=== PATIENT | female | born 1950 | race Caucasian/White ===

== ENCOUNTER 2023-11-08 09:28 | Outpatient (OUT) | payer MEDICARE, SELFPAY ==
[2023-11-08 10:27] LABS: Free T4 1.32 ng/dL (0.76-1.46)
[2023-11-08 10:30] LABS: Chloride 101 mmol/L (98-107); Potassium 3.7 mmol/L (3.5-5.1); Sodium 140 mmol/L (136-145)
[2023-11-08 10:31] LABS: Alanine Aminotransferase 22 U/L (14-59); Albumin Globulin Ratio 1.2; Albumin Level 3.8 g/dL (3.4-5.0); Alkaline Phosphatase 85 U/L (46-116); Anion Gap 10.4; Aspartate Amino Transferase 18 U/L (15-37); BUN Creatinine Ratio 23.9; Bilirubin Total 1.2 mg/dL (0.2-1.0); Calcium 9.1 mg/dL (8.5-10.1); Carbon Dioxide 32.3 mmol/L (21.0-32.0); Estimated GFR (African America >60 (>=60); Estimated GFR (Non-African Ame 60 (>=60); Globulin 3.3 g/dL; Glucose 96 mg/dL (74-106); Total Protein 7.1 g/dL (6.4-8.2); Triglycerides 55 mg/dL (<=150)
[2023-11-08 10:32] LABS: Cholesterol 180 mg/dL (<=200); HDL Cholesterol 98 mg/dL (40-60); Thyroid Stimulating Hormone 2.289 uIU/mL (0.358-3.740)
== END 2023-11-08 09:29 | disposition home or self-care (01) ==
LOC: LAB 09:28
PROVIDERS: PCP Internal Medicine; Visit Provider Internal Medicine
DX: E03.9 Hypothyroidism, unspecified (principal); E78.5 Hyperlipidemia, unspecified
CPT/HCPCS: 36415; 80053; 80061; 84439; 84443

== ENCOUNTER 2023-11-24 14:01 | Outpatient (OUT) | payer MEDICARE, SELFPAY ==
--- OUTSIDE RECORDS SUMMARY | 2023-11-24 14:06 | XMS_ITS | CCD ---
Author Name Unknown Address [address] [place] [address] Organization [facility] Care Team Providers Care Chip Machine Operator Name Role Phone Amparo Garcia Unavailable Unavailab Rachael Dai Primary Care Provider DO Rachael Canela Primary Care Provider DO Rachael Canela Other Provider Self, Referral Attending Provider Unavailable DO Carlos King Referring Provider [phone] Carlos King Referring Unavailable Self, Referral Admitting Unavailable Self, Referral Attending Unavailable Rachael Canela Primary Care Unavailable Rachael Canela Consulting Unavailable IRMA, DR OSBORNE Admitting Unavailable IRMA, DR OSBORNE Attending Unavailable ROLA, DR CANO Primary Care Unavailable IRMA, DR OSBORNE Consulting Unavailable MARY KATE, DR MEERA Yang Consulting Unavailable RACHAEL CANELA Primary Care Physician [phone] SANIA LITTLEJOHN Attending Unavailable MD [place] CHAUDHARY Attending Unavailable SANIA LITTLEJOHN Attending Unavailable MD [place] CHAUDHARY Attending Unavailable Patrick FELIX Amparo Unavailable Unavailab Rachael Dai Primary Care Provider INDIGO SALDAÑA Referring Unavailable RACHAEL CANELA Primary Care Unavailable VISHAL MAEISA Referring Unavailable JOSE MARTINSRACHAEL Primary Care Unavailable VISHAL MAEISA Attending Unavailable OLIVER, SUROVI Referring Unavailable RACHAEL CANELA Primary Care Unavailable RACHAEL CANELA Primary Care Unavailable HAZARIKA, SUROVI Referring Unavailable NEVAARIKA, SUROVI Attending Unavailable JOSE MARTINSRACHAEL Primary Care Unavailable INDIGO SALDAÑA Attending Unavailable RACHAEL CANELA Primary Care Unavailable Rachael Canela DO Primary Care Provider RACHAEL CANELA Attending Unavailable RACHAEL CANELA Referring Unavailable RACHAEL CANELA Primary Care Unavailable Allergies Allergy Classification Reported Allergen(s) Allergy Type Date of Onset Reaction(s) Facility (15 sources) heparin; Translations: [heparin] Drug Allergy 5 Other: See Comments, Platelet factor 4-heparin complex Ab, bleeding [facility] Work Phone: (13 sources) Sulfonamides (Antibiotic); Translations: [SULFA (SULFONAMIDE ANTIBIOTICS)] Drug Allergy 2 Rash [facility] Work Phone: (1 source) heparin Drug Allergy 5 [facility] Repository (1 source) Sulfonamides (Antibiotic) Drug allergy (disorder) 0 [facility] (2 sources) Sulfonamides (Antibiotic); Translations: [sulfa drugs] Drug allergy Eruption of skin (disorder) [facility] Medications Current Medications Medication Drug Class(es) Dates Sig (Normalized) Sig (Original) acetaminophen 325 mg oral tablet (11 sources) Start: 01-07-20 15 acetaminophen (TYLENOL) 325 mg tablet Take 2 tablets (650 mg total) by mouth. 0 01/06/2015 Active Comment on above: Take 2 tablets by mo ut every 6 hours as needed for Pain (DO NOT EXCEED 4,000 MG IN 24 HOUR PERIOD). atorvastatin 10 mg oral tablet (12 sources) HMG-CoA Reductase Inhibitor Start: 12-09-19 23 End: 11-06-19 24 take 1 tablet by mouth once daily atorvastatin (LIPITOR) 10 mg tablet Indications: Hyperlipidemia, unspecified TAKE 1 TABLET BY MOUTH EVERY DAY 90 tablet 1 11/06/2023 Active Comment on above: Take 10 mg by mouth once daily. hydroCHLOROthiazide 12.5 mg oral capsule (14 sources) Thiazide Diuretic Start: 11-01-19 22 End: 12-27-19 23 take 1 capsule by mouth once daily hydroCHLOROthiazide (MICROZIDE) 12.5 mg capsule Take 1 capsule (12.5 mg total) by mouth daily. 0 12/27/2022 Active Comment on above: Take 1 capsule by mo uth daily after breakfast. latanoprost 0.05 mg/ml ophthalmic solution (3 sources) Prostaglandin Analog Start: 12-09-19 latanoprost (XALATAN) 0.005 % ophthalmic solution Refill(s) 0 0 12/09/2022 Active Start: 12-09-2022 latanoprost Op th 0.005% Jeanie Refill(s) 0 Start Date: 12/09/22 Status: Ordered levothyroxine sodium 0.075 mg oral tablet (12 sources) l-Thyroxine Start: 10-24-2023 take 1 tablet by mouth once daily levothyroxine (SYNTHROID, LEVOTHROID) 75 MCG tablet Indications: Hypothyroidism, unspecified TAKE 1 TABLET BY MOUTH DAILY 90 tablet 1 10/24/2023 Active Start: 06-01-2020 levothyroxine Daily, Refills(s) 0 Start Date: 06/01/20 Status: Ordered Start: 03-23-2018 take 1 tablet by brooklyn th once daily before breakfast levothyroxine (SYNTHROID) 75 mcg tablet Take 1 tablet by mouth daily before breakfast. 90 tablet 3 03/23/2018 Active Comment on above: Take 1 tablet by brooklyn th daily before breakfast. Lisinopril (1 source) Angiotensin Converting Enzyme Inhibitor Start: 0 lisinopril Oral, Daily, Refills(s) 0 Start Date: 06/01/20 Status: Ordered 24 hr metoprolol succinate 50 mg extended release oral tablet (16 sources) beta-Adrenergic Edith Start: take 1 tablet by mouth every twenty-four hours in the morning, then take 1 tablet by mouth at bedtime metoprolol succinate XL (TOPROL XL) 50 mg 24 hr tablet Take 1 tablet (50 mg total) by mouth in the morning and 1 tablet (50 mg total) before bedtime. 0 08/28/2023 Active Start: 06-27-2023 End: 08-28-2023 take 1 tablet by mouth twice daily metoprolol succinate ER (TOPROL XL) 50 mg 24 hr tablet Indications: S/P AVR (aortic valve replacement) and aortoplasty , APC (atrial premature contractions) , SVT (supraventricular tachycardia) Take 1 tablet by mouth two times a day. 180 tablet 3 08/28/2023 Active Start: 12-19-2022 End: 11-06-2023 take 2 tablets by mouth every twenty-four hours in the morning, then take 1 tablet by mouth in the evening metoprolol succinate XL (TOPROL XL) 25 mg 24 hr tablet TAKE 2 TABLETS BY MOUTH IN THE MORNING then TAKE 1 TABLET BY MOUTH IN THE EVENING 0 12/19/2022 11/06/2023 Discontinued (Therapy completed) Start: 12-09-2022 take 1 mg by mouth once daily metoprolol 25 mg ER Tab mg tab(s), Oral, Daily, Refills(s) 0 Start Date: 12/09/22 Status: Ordered Start: 10-06-2022 End: 12-17-2022 take 2 tablets by mouth every twenty-four hours in the morning, then take 1 tablet by mouth in the evening metoprolol succinate ER (TOPROL XL) 25 mg 24 hr tablet Indications: S/P AVR (aortic valve replacement) and aortoplasty , SVT (supraventricular tachycardia) (HCC) , Essential hypertension , Venous (peripheral) insufficiency TAKE 2 TABLETS BY MOUTH IN THE MORNING then TAKE 1 TABLET BY MOUTH IN THE EVENING 270 tablet 3 10/06/2022 12/17/2022 Discontinued Start: 12-13-2021 metoprolol suc cinate ER (TOPROL XL) 25 mg 24 hr tablet Indications: S/P AVR (aortic valve replacement) and aortoplasty , SVT (supraventricular tachycardia) (HCC) , Essential hypertension , Venous (peripheral) insufficiency Take 50 mg am and 25 mg pm 270 tablet 3 12/13/2021 Active Comment on above: Take 50 mg am and 25 mg pm TAKE 2 TABLETS BY MO [facility] IN THE MORNING then TAKE 1 TABLET BY MOUTH IN THE EVENING Take 1 tablet by brooklyn th twice daily. Take 1 tablet by brooklyn th two times a day. perflutren lipid microspheres 1.3 mL in NaCl (PF) 0.9% 10 mL injection (DEFINITY) (6 sources) Start: 06-27-2023 End: 09-25-2024 perflutren lipid microspheres 1.3 mL in NaCl (PF) 0.9% 10 mL injection (DEFINITY) Start: 12-27-2021 End: 03-28-2023 perflutren lipid microsphere s 1.3 mL in NaCl (PF) 0.9% 10 mL injection (DEFINITY) 125 ml sodium chloride 9 mg/ ml prefilled syringe (6 sources) Start: 06-27-2023 End: 09-25-2024 sodium chloride 0.9 % (flush ) 10 mL (BD POSIFLUSH) Start: 12-27-2021 End: 03-28-2023 sodium chloride 0.9 % (flush ) 10 mL (BD POSIFLUSH) Vitamin D2 2000 intl units oral capsule (1 source) Start: 06-01-2020 take 1 capsule by mouth once daily Vitamin D2 2000 intl units oral capsule International_Unit cap(s), Oral, Daily, Refills(s) 0 Start Date: 06/01/20 Status: Ordered Completed/Discontinued Medications Medication Drug Class(es) Dates Sig (Normalized) Sig (Original) amoxicillin 500 mg oral tablet (10 sources) Penicillin-class Antibacterial Start: 08-02-2023 End: 11-06-2023 amoxicillin (AMOXIL) 500 MG tablet Dental prn 0 08/02/2023 11/06/2023 Discontinued (Therapy completed) Start: 03-22-2016 Amoxicillin 50 0 mg tablet Take 4 tablets by mouth 30-60 minutes before dental procedure 4 tablet 11 03/22/2016 Active Comment on above: Take 4 tablets by mo [facility] 30-60 minutes before dental procedure cholecalciferol 1.25 mg oral capsule (9 sources) Vitamin D take 1 capsule by mouth every week cholecalciferol, Vitamin D3, (VITAMIN D3) 1,250 mcg (50,000 unit) cap capsule Take 50,000 Units by mouth one time a week. 0 Active Comment on above: Take 50,000 Units by mouth one time a week. 10 ml lidocaine hydrochloride 10 mg/ml injection (1 source) Antiarrhythmic, Amide Local Anesthetic Start: 05-30-20 End: 05-30-20 lidocaine (PF) 10 mg/mL (1 %) 4 mL injection (XYLOCAINE) meloxicam 15 mg oral tablet (2 sources) Nonsteroidal Anti-inflammatory Drug End: 06-27-20 take 1 tablet by mouth once daily meloxicam (MOBIC) 15 mg tablet Take 15 mg by mouth once daily. 0 06/27/2023 Discontinued (Course of therapy completed) Comment on above: Take 15 mg by mouth once daily. simvastatin 10 mg oral tablet (1 source) HMG-CoA Reductase Inhibitor Start: 03-23-20 take 1 tablet by mouth once daily at bedtime simvastatin (ZOCOR) 10 mg tablet Take 1 tablet by mouth daily at bedtime. 90 tablet 3 03/23/2018 Active Comment on above: Take 1 tablet by brooklyn th daily at bedtime. timolol/dorzolamide/lat anop/PF (VMNHLWO-NZZLKCBYFY-QZG ANOP,PF,) 0.5-2-0.005 % drop (6 sources) timolol/dorzolam jama /latanop/PF (TIMOLOL-DORZOLAMID -LATANOP,PF,) 0.5-2-0.005 % drop Use 1 Drop in eyes every evening. 0 Active Comment on above: Use 1 Drop in eyes e very evening. tiZANidine 4 mg oral tablet (3 sources) Central alpha-2 Adrenergic Agonist Start: 09-27-20 End: 11-10-19 24 take 1 tablet by mouth once daily tiZANidine (ZANAFLEX) 4 mg tablet Indications: Strain of left hamstring, initial encounter Take 1 tablet (4 mg total) by mouth nightly. 30 tablet 0 09/27/2023 11/10/2023 Discontinued (Side effects) Start: 01-04-2019 take 1 tablet by brooklyn th every twenty-four hours as needed tiZANidine (ZANAFLEX) 4 mg tablet Take 1 tablet by mouth at bedtime as needed. 30 tablet 1 01/04/2019 Active Comment on above: Take 1 tablet by brooklyn th at bedtime as needed. 1 ml triamcinolone acetonide 40 mg/ml injection (1 source) Corticosteroid Start: 05-30-2023 End: 05-30-2023 triamcinolone acetonide 40 mg injection (KeNALog 40) Problems Active Problems Problem Classification Problem Date Documented Date Episodic/Chronic Cardiac dysrhythmias (20 sources) Atrial flutter; Translations: [Unspecified atrial flutter] Onset: 12-12-2014 Resolved: 03-30-2023 10-25-2021 Chronic Coagulation and hemorrhagic disorders (12 sources) Heparin-induced thrombocytopenia; Translations: [Heparin induced thrombocytopenia (HIT)] Onset: 12-09-2014 10-25-2021 Chronic Disorders of lipid metabolism (16 sources) Hyperlipidemia; Translations: [Hyperlipidemia, unspecified] Onset: 12-02-2014 10-25-2021 Chronic Essential hypertension (19 sources) Essential hypertension; Translations: [Essential (primary) hypertension] Onset: 12-02-2014 Chronic Genitourinary symptoms and ill-defined conditions (4 sources) Stress incontinence (female) (male); Translations: [Genuine stress incontinence] Onset: 12-09-2022 Chronic Heart valve disorders (16 sources) History of aortic valve replacement; Translations: [Presence of prosthetic heart valve] Onset: 06-29-2021 Chronic Heart valve disorders (1 source) Heart murmur 06-01-2020 Episodic Osteoarthritis (1 source) Arthritis 06-01-2020 Chronic Other connective tissue disease (1 source) Impingement syndrome of left shoulder region; Translations: [Impingement syndrome of left shoulder] 05-30-2023 Episodic Other diseases of kidney and ureters (1 source) Hydronephrosis due to ureteral obstruction 06-01-2020 Episodic Other skin disorders (1 source) Loss of hair; Translations: [Nonscarring hair loss, unspecified] Episodic Residual codes; unclassified (1 source) Pain, unspecified; Translations: [Pain] Onset: 05-30-2023 Episodic Residual codes; unclassified (1 source) Pain; Translations: [Pain, unspecified] 05-30-2023 Episodic Spondylosis; intervertebral disc disorders; other back problems (8 sources) Thoracic facet joint pain; Translations: [Other spondylosis, thoracic region] Onset: 11-17-2011 02-05-2021 Chronic Spondylosis; intervertebral disc disorders; other back problems (1 source) Sciatica; Translations: [Sciatica, left side] 11-10-2023 Episodic Thyroid disorders (11 sources) Hypothyroidism; Translations: [Hypothyroidism, unspecified] Onset: 12-04-2014 10-25-2021 Chronic Unclassified (9 sources) SUMMARY Onset: 12-02-2014 01-06-2015 Unclassified (1 source) Encounter for screening mammogram for malignant neoplasm of breast; Translations: [Encounter for screening mammogram for malignant neoplasm of breast] Onset: 09-12-2022 Unclassified (1 source) Heparin-induced thrombocytopenia, unspecified; Translations: [Heparin-induced thrombocytopenia, unspecified] Onset: 01-30-2023 Past or Other Problems Problem Classification Problem Date Documented Da te Episodic/Chronic Abdominal pain (6 sources) Abdominal pain; Translations: [Right flank pain] Onset: 01-30-2023 06-01-2020 Episodic Calculus of urinary tract (9 sources) Calculus of kidney; Translations: [History of calculus of kidney] Onset: 12-05-2022 Episodic Conditions associated with dizziness or vertigo (20 sources) Vertigo of central origin; Translations: [Vertigo of central origin] Onset: 03-20-2015 03-20-2015 Episodic Deficiency and other anemia (11 sources) Anemia; Translations: [Anemia, unspecified] Onset: 12-27-2014 10-25-2021 Episodic Genitourinary symptoms and ill-defined conditions (3 sources) Christian hematuria; Translations: [Gross hematuria] Onset: 01-30-2023 06-01-2020 Episodic Mood disorders (2 sources) Mood disorders Onset: 09-27-2023 Resolved: 11-10-2023 09-27-2023 Nonspecific chest pain (8 sources) Pain of intercostal space; Translations: [Intercostal pain] Onset: 12-24-2020 02-05-2021 Episodic Other aftercare (9 sources) Patient encounter status; Translations: [Encounter for therapeutic drug level monitoring] Onset: 12-18-2014 Episodic Other aftercare (11 sources) Long-term current use of anticoagulant; Translations: [USP (current) use of anticoagulants] Onset: 01-03-2015 01-30-2023 Episodic Other diseases of kidney and ureters (2 sources) Hydronephrosis with renal and ureteral calculous obstruction; Translations: [Calculus of ureter] Onset: 01-30-2023 01-30-2023 Episodic Other diseases of veins and lymphatics (7 sources) Peripheral venous insufficiency; Translations: [Venous insufficiency (chronic) (peripheral)] Onset: 06-27-2023 Episodic Other eye disorders (11 sources) Divergence insufficiency ; Translations: [Other specified disorders of binocular movement] Onset: 06-23-2015 06-23-2015 Episodic Other lower respiratory disease (12 sources) Dyspnea on exertion; Translations: [Other forms of dyspnea] Onset: 06-29-2021 Episodic Other skin disorders (1 source) Nonscarring hair loss, unspecified; Translations: [Patchy loss of hair] Onset: 12-27-2022 Episodic Phlebitis; thrombophlebitis and thromboembolism (11 sources) Axillary vein thrombosis; Translations: [Acute embolism and thrombosis of unspecified axillary vein] Onset: 12-18-2014 Resolved: 03-30-2023 10-25-2021 Episodic Results Test Name Value Interpretation Reference Range Facility CBC panel Auto (Bld)on 06-27 Erythrocyte distribution width (RBC) [Ratio] 12.0 % 11.5 - 15.0 % [facility] Hematocrit (Bld) [Volume fraction] 46.3 % High 36.0 - 46.0 % [facility] Hemoglobin (Bld) [Mass/Vol] 15.2 g/dL 11.5 - 15.5 g/dL [facility] MCH (RBC) [Entitic mass] 32.3 pg 26.0 - 34.0 pg [facility] MCHC (RBC) [Mass/Vol] 32.8 g/dL 30.5 - 36.0 g/dL [facility] MCV (RBC) [Entitic vol] 98.5 fL 80.0 - 100.0 fL [facility] Nucleated RBC (Bld) [#/Vol] <0.01 k/uL [facility] Platelet mean volume (Bld) [Entitic vol] 11.4 fL 9.0 - 12.7 fL [facility] Platelets (Bld) [#/Vol] 144 10*3/uL Low 150 - 400 k/uL [facility] RBC (Bld) [#/Vol] 4.70 10*6/uL 3.90 - 5.2 0 m/uL [facility] WBC (Bld) [#/Vol] 6.26 10*3/uL 3.70 - 11. 00 k/uL [facility] Erythrocyte distribution width (RBC) [Ratio] 12.0 % Normal 11.5-15.0 [facility] Comment on above: Order Comment: Brianda andres Type: BLOOD SPECIMEN Ordering Facility: [facility] Address: [address] [place], [place] [id number] Performed By: #### 5 8410-2 #### [facility] CLIA [id number] [address] [place] [address] [place] Hematocrit (Bld) [Volume fraction] 46.3 % High 36.0-46.0 [facility] Comment on above: Order Comment: Brianda andres Type: BLOOD SPECIMEN Ordering Facility: [facility] Address: [address] Performed By: #### 5 8410-2 #### [facility] CLIA [id number] [address] [place] [address] [place] Hemoglobin (Bld) [Mass/Vol] 15.2 g/dL Normal 11.5-15.5 [facility] Comment on above: Order Comment: Speci men Type: BLOOD SPECIMEN Ordering Facility: [facility] Address: [address] Performed By: #### 5 8410-2 #### [facility] CLIA [id number] [address] [place] [address] [place] MCH (RBC) [Entitic mass] 32.3 pg Normal 26.0-34.0 [facility] Comment on above: Order Comment: Speci men Type: BLOOD SPECIMEN Ordering Facility: [facility] Address: [address] Performed By: #### 5 8410-2 #### [facility] CLIA [id number] [address] [place] [address] [place] MCHC (RBC) [Mass/Vol] 32.8 g/dL Normal 30.5-36.0 [facility] Comment on above: Order Comment: Speci men Type: BLOOD SPECIMEN Ordering Facility: [facility] Address: [address] Performed By: #### 5 8410-2 #### [facility] CLIA [id number] [address] [place] [address] [place] MCV (RBC) [Entitic vol] 98.5 fL Normal 80.0-100.0 [facility] Comment on above: Order Comment: Speci men Type: BLOOD SPECIMEN Ordering Facility: [facility] Address: [address] [place], [place] [address] Performed By: #### 5 8410-2 #### [facility] CLIA [id number] [address] [place] [address] [place] Nucleated RBC (Bld) [#/Vol] 10*3/uL Normal <0.01 [facility] Comment on above: Order Comment: Speci men Type: BLOOD SPECIMEN Ordering Facility: [facility] Address: [address] [place] [address] Performed By: #### 5 8410-2 #### [facility] CLIA [id number] [facility] [place] [address] [place] Platelet mean volume (Bld) [Entitic vol] 11.4 fL Normal 9.0-12.7 [facility] Comment on above: Order Comment: Speci men Type: BLOOD SPECIMEN Ordering Facility: [facility] Address: [address] [place] [address] Performed By: #### 5 8410-2 #### [facility] CLIA [id number] [address] [place] [address] [place] Platelets (Bld) [#/Vol] 144 10*3/uL Low 150-400 [facility] Comment on above: Order Comment: Speci men Type: BLOOD SPECIMEN Ordering Facility: [facility] Address: [address] [place], [place] [address] Performed By: #### 5 8410-2 #### [facility] CLIA [id number] [address] [place] [address] [place] RBC (Bld) [#/Vol] 4.70 10*6/uL Normal 3.90-5.20 [facility] Comment on above: Order Comment: Speci men Type: BLOOD SPECIMEN Ordering Facility: [facility] Address: [address] [place], [place] [address] Performed By: #### 5 8410-2 #### [facility] CLIA [id number] [address] [place] [address] [place] WBC (Bld) [#/Vol] 6.26 10*3/uL Normal 3.70-11.00 [facility] Comment on above: Order Comment: Speci men Type: BLOOD SPECIMEN Ordering Facility: [facility] Address: [address] [place] [address] Performed By: #### 5 8410-2 #### [facility] CLIA [id number] [address] [facility] [place]K [id number] [id number] [facility] CNOVon 06-27-2023 CNOV Office Visit (CARDLO ) -------- LESVIA RAMOS I ([id number]) 1950 F Date Time Provider Department 06/27/23 9:00 AM ANDRES BOYD During your visit today, we recorded the following information about you: Pulse Blood pressure Weight 69/minute 140/82 59 kg Andres Boyd MD 06/27/2023 9:33 AM Signed [facility] SECTION OF REGIONAL CARDIOLOGY OUTPATIENT VISIT DATE June 27, 2023 OUTPATIENT VISIT TYPE ESTABLISHED PRIMARY CARE PHYSICIAN: Rachael Canela DO [address] [place] [address] CHIEF COMPLAINT: Follow-up Last visit with me: May 2022, subsequent visit with ITZ Mae November 2022 HISTORY OF PRESENT ILLNESS: Ms. Ramos is a 72 year old female, seen in cardiology clinic today to for follow-up. Since last visit, Doing well, but feels that palpitations are a bit more often. Started taking meloxicam for shoulder pain. Now stopped. Now s/p steroid injection, no longer needing meloxicam. Continues PT at home. Diet: Overall well balanced. Otherwise she denies any recurrent chest pain, shortness of breath, lsymptoms consistent with orthopnea and/or PND. 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 Hypertension Hyperlipidemia Atrial flutter, postoperative, no documented recurrence since then, but intermittent palpitations. Moderate TR Echocardiogram 03/01/2017 - The left ventricle is normal in size. Left ventricular systolic function is normal. EF = 62 ? 5% (2D biplane) - The right ventricle is normal in size. Right ventricular systolic function is normal. - The left atrial cavity is moderately dilated. - There is moderate (2+) tricuspid valve regurgitation. - Doris-Tee prosthetic aortic valve (size #23). There is no aortic valve regurgitation. The peak gradient is 24 mmHg, the mean gradient is 12 mmHg and the dimensionless valve index is 0.55. - s/p ascending aortic repair and AVR PHYSICAL EXAMINATION: BP 140/82 Pulse 69 Wt 59 kg (130 lb) BMI 22.31 kg/m? General: No acute distress, appears comfortable HEENT: no bruits, no JVD Pulmonary/chest: CTA b/L. CVS: Normal S1 and S2, Regular rhythm, normal rate. Soft 2/6 early systolic murmur, RUSB. No JVD, trace B/L LE edema. Central and peripheral pulses 2+ B/L, no carotid or abdominal bruits. Abdomen: Soft, non-tender, non-distended. Bowel sounds normal Extremities: skin changes consistent with chronic venous insufficiency, no compressions today, trace B/L Le edema to above ankle. Neuro: AAOx4 Psych: Normal mood and affect EKG done in clinic and I personally reviewed today. Normal sinus rhythm, APCs. Septal Q waves. ECHOCardiogram today, June 27, 2022 CONCLUSIONS: - Exam indication: Aortic valve replacement, SVT - The left ventricle is normal in size. Left ventricular systolic function is normal. EF = 66 ? 5% (2D biplane) Grade I left ventricular diastolic dysfunction. - The right ventricle is normal in size. Right ventricular systolic function is normal. - Doris-Tee prosthetic aortic valve (size #23). There is no aortic valve regurgitation. The peak gradient is 17 mmHg, the mean gradient is 9 mmHg and the dimensionless valve index is 0.59. - Estimated right ventricular systolic pressure is 22 mmHg consistent with normal pulmonary artery pressures. Estimated right atrial pressure is 3 mmHg based on IVC assessment. - Exam was compared with the prior echocardiographic exam performed on 06/25/20. No significant change. 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5-2-0.005 % drop Use 1 Drop in eyes every evening. hydroCHLOROthi (more content not included)... Normal [facility] Comprehensive metabolic 2000 panelon 06-27-2023 Albumin [Mass/Vol] 4.2 g/dL Normal 3.9-4.9 [facility] Comment on above: Order Comment: Hakeemi mckenna Type: BLOOD SPECIMEN Ordering Facility: [facility] Address: [address] [address] Performed By: #### 2 4323-8 #### [facility] CLIA [id number] [address] [place] [address] [place] ALP [Catalytic activity/Vol] 78 U/L Normal 34-123 [facility] Comment on above: Order Comment: Speci men Type: BLOOD SPECIMEN Ordering Facility: [facility] Address: [address] [address] Performed By: #### 2 4323-8 #### [facility] CLIA [id number] [address] [place] [address] [place] ALT [Catalytic activity/Vol] 24 U/L Normal 7-38 [facility] Comment on above: Order Comment: Speci men Type: BLOOD SPECIMEN Ordering Facility: [facility] Address: [address] Performed By: #### 2 4323-8 #### [facility] CLIA [id number] [address] [place] [address] [place] Anion gap [Moles/Vol] 10 mmol/L Normal 9-18 [facility] Comment on above: Order Comment: Speci men Type: BLOOD SPECIMEN Ordering Facility: [facility] Address: [address] Performed By: #### 2 4323-8 #### [facility] CLIA [id number] [address] [place] [address] [place] AST [Catalytic activity/Vol] 24 U/L Normal 13-35 [facility] Comment on above: Order Comment: Speci men Type: BLOOD SPECIMEN Ordering Facility: [facility] Address: [address] Performed By: #### 2 4323-8 #### [facility] CLIA [id number] [address] [place] [address] [place] Bilirubin [Mass/Vol] 0.7 mg/dL Normal 0.2-1.3 [facility] Comment on above: Order Comment: Speci men Type: BLOOD SPECIMEN Ordering Facility: [facility] Address: [address] [place] [address] Performed By: #### 2 4323-8 #### [facility] CLIA [id number] [address] [place] [address] [place] Calcium [Mass/Vol] 9.7 mg/dL Normal 8.5-10.2 [facility] Comment on above: Order Comment: Speci men Type: BLOOD SPECIMEN Ordering Facility: [facility] Address: [address] [place] [address] Performed By: #### 2 4323-8 #### [facility] CLIA [id number] [address] [place] [address] [place] Chloride [Moles/Vol] 104 mmol/L Normal 97-105 [facility] Comment on above: Order Comment: Speci men Type: BLOOD SPECIMEN Ordering Facility: [facility] Address: [address] [place] [address] Performed By: #### 2 4323-8 #### [facility] CLIA [id number] [address] [place] [address] [place] CO2 [Moles/Vol] 28 mmol/L Normal 22-30 [facility] Comment on above: Order Comment: Speci men Type: BLOOD SPECIMEN Ordering Facility: [facility] Address: [address] [place] [address] Performed By: #### 2 4323-8 #### [facility] CLIA [id number] [facility] [place] [address] [place] Creatinine [Mass/Vol] 0.85 mg/dL Normal 0.58-0.96 [facility] Comment on above: Order Comment: Speci men Type: BLOOD SPECIMEN Ordering Facility: [facility] Address: [address] [place] [address] Performed By: #### 2 4323-8 #### [facility] CLIA [id number] [address] [place] [address] [place] Creatinine and Glomerular filtration rate.predicted panel (S/P/Bld) 73 mL/min/1.73m??? Normal >=60 [facility] Comment on above: Order Comment: Speci men Type: BLOOD SPECIMEN Ordering Facility: [facility] Address: [address] [place] [address] Result Comment: Felicia mated Glomerular Filtration Rate (eGFR) is calculated using the 2020 CKD-EPI creatinine equation. This equation utilizes serum creatinine, sex, and age as parameters. The creatinine assay has traceable calibration to isotope dilution-mass spectrometry. Refer to KDIGO guidelines for clinical interpretation. In patients with unstable renal function, e.g. those with acute kidney injury, the eGFR may not accurately reflect actual GFR. Performed By: #### 2 4323-8 #### [facility] CLIA [id number] [address] [place] [address] [place] Glucose [Mass/Vol] 84 mg/dL Normal 74-99 [facility] Comment on above: Order Comment: Brianda andres Type: BLOOD SPECIMEN Ordering Facility: [facility] Address: [address] [id number] Result Comment: The [place] Diabetes Association (ADA) provides guidance for cutoff values for fasting glucose and random glucose. The ADA defines fasting as no caloric intake for at least 8 hours. Fasting plasma glucose results between 100 to 125 mg/dL indicate increased risk for diabetes (prediabetes). Fasting plasma glucose results greater than or equal to 126 mg/dL meet the criteria for diagnosis of diabetes. In the absence of unequivocal hyperglycemia, results should be confirmed by repeat testing. In a patient with classic symptoms of hyperglycemia or hyperglycemic crisis, random plasma glucose results greater than or equal to 200 mg/dL meet the criteria for diagnosis of diabetes. Reference: Standards of Medical Care in Diabetes 2016, [place] Diabetes Association. Diabetes Care. 2016.39(Suppl 1). Performed By: #### 2 4323-8 #### [facility] CLIA [id number] [address] [place] [address] [place] Potassium [Moles/Vol] 4.5 mmol/L Normal 3.7-5.1 [facility] Comment on above: Order Comment: Brianda andres Type: BLOOD SPECIMEN Ordering Facility: [facility] Address: [address] [place] [address] Performed By: #### 2 4323-8 #### [facility] CLIA [id number] [address] [id number] [place] Protein [Mass/Vol] 6.3 g/dL Normal 6.3-8.0 [facility] Comment on above: Order Comment: Speci men Type: BLOOD SPECIMEN Ordering Facility: [facility] Address: [address] [address] Performed By: #### 2 4323-8 #### [facility] CLIA [id number] [address] [place] Sodium [Moles/Vol] 142 mmol/L Normal 136-144 [facility] Comment on above: Order Comment: Speci men Type: BLOOD SPECIMEN Ordering Facility: [facility] Address: [address] [address] Performed By: #### 2 4323-8 #### [facility] CLIA [id number] [address] [place] [address] [place] Urea nitrogen [Mass/Vol] 18 mg/dL Normal 7-21 [facility] Comment on above: Order Comment: Speci men Type: BLOOD SPECIMEN Ordering Facility: [facility] Address: [address] [address] Performed By: #### 2 4323-8 #### [facility] CLIA [id number] [facility] [address] [place] ECG COMPLETEon 06-27-2023 ECG COMPLETE Ventricular Rate : 6 9 BPM Atrial Rate : 85 BPM P-R Interval : 198 ms QRS Duration : 86 ms Q-T Interval : 396 ms QTC Calculation(Bazett) : 424 ms Calculated P [place] : 79 degrees Calculated R [place] : 85 degrees Calculated T [place] : 56 degrees SINUS RHYTHM WITH MARKED SINUS ARRHYTHMIA ABNORMAL ECG Confirmed by MERON MARTINI M.D. ([id number]) on 06/29/2023 2:57:41 PM NAME : LESVIA RAMOS PID : [id number] : 1950 Gender : Female Race : ORD : [id number] Procedure Date : Jun 27 2023 08:52:22 Edit Date : Jun 29 2023 14:57:43 Diagnosis: SINUS RHYTHM WITH MARKED SINUS ARRHYTHMIA ABNORMAL ECG Confirmed by MERON MARTINI M.D. ([id number]) on 06/29/2023 2:57:41 PM Test Reason : Location : 145 : SEAN Overread By : MERON MARTINI M.D. Edited By : MERON MARTINI M.D. Referred By : ANDRES BOYD Acquired by : Roopa olson [facility] CNOVon 05-30-2023 CNOV Office Visit (ORAVON ) -------- LESVIA RAMOS I ([id number]) 1950 F Date Time Provider Department 05/30/23 9:30 AM INDIGO SALDAÑA During your visit today, we recorded the following information about you: Indigo Saldaña, DO 05/30/2023 10:40 AM Signed Lesvia Ramos is a patient of Rachael Canela. CHIEF COMPLAINT: Lesvia Ramos is a 72 year old female who presents today for new evaluation of left shoulder pain. HISTORY OF PRESENT ILLNESS: Patient is a 72-year-old female presents today for evaluation of left shoulder pain. She started noticing discomfort in left shoulder back in December of this year. She does not recall any injury or trauma. She gets achy pain in the left shoulder at nighttime particularly. Raising the arm at side and overhead is uncomfortable. Since starting meloxicam she is noticed the pain is a little better. Her primary care physician to get an MRI which suggested bursitis and a partial-thickness rotator cuff tear and some calcific tendinitis. She has not started any physical therapy yet PAIN EVALUATION 05/30/2023 0936 Pain Level: -- PATIENT IS UNABLE TO RATE HER PAIN Pain Location: Shoulder-Left Description: Aching;Sharp Duration Amount of Time: 5 Duration Units: Months Frequency: Intermittent Intervention/Comfort measure: Medication MOBIC, TYLENOL ROS: REVIEW OF SYMPTOMS: Constitutional: patient denies any recent fever or significant change in weight Gastrointestinal: patient denies any current abdominal discomfort Musculoskeletal: as noted in the HPI Neurologic: as noted in the HPI SOCIAL HISTORY: Tobacco Use: Never ALLERGIES: ALLERGIES Allergen Reactions Heparin Other: See Comments HIT Sulfa (Sulfonamide * Rash PAST MEDICAL HISTORY: PAST MEDICAL HISTORY Diagnosis Date Aortic stenosis Ascending aortic aneurysm ([facility]) Degenerative disc disease, lumbar Heart murmur Hypertension Hypothyroidism Osteopenia Stroke (cerebrum) ([facility]) 12/07/2014 SOCIAL HISTORY: Tobacco Use: Never PHYSICAL EXAMINATION: Patient has mildly positive impingement signs in the left shoulder. Negative drop arm test and negative lift off sign. She has mild discomfort with resisted left shoulder abduction and forward flexion. She has good strength with these resisted motions. Speed's Test is negative. No tenderness about the elbow, forearm, wrist, or hand. Elbow and wrist motion were not irritable. Neurovascularly intact, radial pulses 2 + and palpable. Sensation is intact to light touch in the hand. IMAGING: X-rays of the left shoulder taken the office today reveal no fractures or dislocations. There is some distal supraspinatus region calcification suggesting calcific tendinitis. Mild acromioclavicular joint osteoarthritis MRI from outside facility report was able to be reviewed. This describes some partial-thickness rotator cuff tearing along with some calcific tendinitis and significant subacromial bursitis. CLINICAL IMPRESSION / ASSESSMENT: Left shoulder impingement and partial-thickness rotator cuff tear PROCEDURES: Large Joint Arthro/Inj: L subacromial bursa Informed Consent Consent Obtained: Verbal [place] Protocol A moment to CARE was completed. SIGN IN Personnel directly involved with the procedure wore the appropriate PPE. Special Equipment: N/A Patient/Surrogate Stated/Verified: Patient name, Date of , Relevant allergies and Intended procedure TIME OUT Intended patient and procedure match the source document(s). Relevant labs, photos, and/or imaging studies have been reviewed. Correct side/site marked and visible. Medications required for procedure verified. Fire risk assessed and interventions discussed. No implant(s) inserted. 05/30/2023 10:34 AM The procedure site was prepped in the usual sterile fashion. Site: L subacromial bursa Medications: 40 mg triamcinolone acetonide 40 mg/mL Anesthetics: 4 mL lidocaine (PF) 10 mg/mL (1 %) Outcome: Tolerated well, no immediate complications Post-injection instructions were reviewed with the patient and the patient voiced understanding of these instructions. SIGN OUT All instruments, equipment, possible retained foreign bodies accounted for. RECOMMENDATION / PLAN: I discussed treatment options with the patient at length. Patient is interested in a cortisone injection for the left shoulder. She was given this injection today under pleat sterile technique without any complications as outlined above. I also recommend she do some physical therapy for the left shoulder. She can follow-up with me on an as-needed basis. Verbal health education was given to patient. Patient verbalizes understanding and agrees with the treatment plan as detailed above. Indigo Saldaña DO Allergies As of Date: 05/30/2023 Noted Allergy Reaction HEPARIN 12/09/2014 14 - Other: See Commen (more content not included)... Normal [facility] XR SHLDR >/=3V AP/SAAD AP/OTH R LTon 05-30-2023 XR SHLDR >/=3V AP/SAAD AP/OTHR LT * * *Final Report* * * DATE OF EXAM: May 30 2023 9:06AM AFR 5252 - XR SHLDR >/=3V AP/SAAD AP/OTHR LT / PROCEDURE REASON: Pain * * * * Physician Interpretation * * * * EXAMINATION: XR SHLDR >/=3V AP/SAAD AP/OTHR LT HISTORY: CHRONIC LEFT SHOULDER PAIN- NO INJURY Pain . TECHNIQUE: XR SHLDR >/=3V AP/SAAD AP/OTHR LT Laterality: LEFT Number of different views (projections): 4 M: XB_1 COMPARISON: RESULT: Small region of calcific tendinosis of the distal rotator cuff. Maintained glenohumeral and acromioclavicular joints with minimal marginal osteophytes. Generalized osteopenia. Median sternotomy wires. No acute fracture or dislocation. There are no bony erosions. IMPRESSION: Calcific tendinosis and minimal degenerative change. Rn Telephone Triage: PSCB Transcribe Date/Time: May 30 2023 9:40A Dictated by : JOSSY BENAVIDES MD This examination was interpreted and the report reviewed and electronically signed by: JOSSY BENAVIDES MD on May 30 2023 9:40AM EST [id number] Normal [facility] XR SHOULDER GENERAL 3V OR MO RE AP/TRUE AP/OTHER LEFTon 05-30-2023 [facility] Basic metabolic 2000 panelon 12-27-2022 Anion gap [Moles/Vol] 7 mmol/L Low 9 - 18 mmol/L [facility] Calcium [Mass/Vol] 9.4 mg/dL 8.5 - 10. 2 mg/dL [facility] Chloride [Moles/Vol] 106 mmol/L High 97 - 105 mmol/L [facility] CO2 [Moles/Vol] 30 mmol/L 22 - 30 mmol/L [facility] Creatinine [Mass/Vol] 0.81 mg/dL 0.58 - 0.96 mg/dL [facility] Estimated Glomerular Filtration Rate 77 mL/min/1.73m >=60 mL/min/1.73m [facility] Glucose [Mass/Vol] 64 mg/dL Low 74 - 99 mg/dL [facility] Potassium [Moles/Vol] 4.7 mmol/L 3.7 - 5.1 mmol/L [facility] Sodium [Moles/Vol] 143 mmol/L 136 - 144 mmol/L [facility] Urea nitrogen [Mass/Vol] 18 mg/dL 7 - 21 mg/dL [facility] Anion gap [Moles/Vol] 7 mmol/L Low 9-18 [facility] Comment on above: Order Comment: Speci men Type: BLOOD SPECIMEN Ordering Facility: [facility] Address: [address] [address] Performed By: #### 3 016-3, LIPLILIAN, , #### [facility] CLIA [id number] [address] [place] [address] [place] Calcium [Mass/Vol] 9.4 mg/dL Normal 8.5-10.2 [facility] Comment on above: Order Comment: Speci men Type: BLOOD SPECIMEN Ordering Facility: [facility] Address: [address] [place] [address] Performed By: #### 3 016-3, LIPNF, , #### [facility] CLIA [id number] [address] [place] [address] [place] Chloride [Moles/Vol] 106 mmol/L High 97-105 [facility] Comment on above: Order Comment: Speci men Type: BLOOD SPECIMEN Ordering Facility: [facility] Address: [address] [place] [address] Performed By: #### 3 016-3, LIPNF, , #### [facility] CLIA [id number] [address] [place] [address] [place] CO2 [Moles/Vol] 30 mmol/L Normal 22-30 [facility] Comment on above: Order Comment: Speci men Type: BLOOD SPECIMEN Ordering Facility: [facility] Address: [address] [place] [address] Performed By: #### 3 016-3, LIPNF, , #### [facility] CLIA [id number] [address] [place] [address] [place] Creatinine [Mass/Vol] 0.81 mg/dL Normal 0.58-0.96 [facility] Comment on above: Order Comment: Speci men Type: BLOOD SPECIMEN Ordering Facility: [facility] Address: [address] [place] [address] Performed By: #### 3 016-3, LIPNF, , #### [facility] CLIA [id number] [address] [place] [address] [place] ESTIMATED GLOMERULAR FILTRATION RATE 77 mL/min/1.73m??? Normal >=60 [facility] Comment on above: Order Comment: Speci men Type: BLOOD SPECIMEN Ordering Facility: [facility] Address: [address] [place] [address] Result Comment: Felicia mated Glomerular Filtration Rate (eGFR) is calculated using the 2020 CKD-EPI creatinine equation. This equation utilizes serum creatinine, sex, and age as parameters. The creatinine assay has traceable calibration to isotope dilution-mass spectrometry. Refer to KDIGO guidelines for clinical interpretation. In patients with unstable renal function, e.g. those with acute kidney injury, the eGFR may not accurately reflect actual GFR. Performed By: #### 3 016-3, LIPNF, , 28330-7 #### [facility] CLIA [id number] [address] [place] [address] [place] Glucose [Mass/Vol] 64 mg/dL Low 74-99 [facility] Comment on above: Order Comment: Speci men Type: BLOOD SPECIMEN Ordering Facility: [facility] Address: [address] [address] Result Comment: The [place] Diabetes Association (ADA) provides guidance for cutoff values for fasting glucose and random glucose. The ADA defines fasting as no caloric intake for at least 8 hours. Fasting plasma glucose results between 100 to 125 mg/dL indicate increased risk for diabetes (prediabetes). Fasting plasma glucose results greater than or equal to 126 mg/dL meet the criteria for diagnosis of diabetes. In the absence of unequivocal hyperglycemia, results should be confirmed by repeat testing. In a patient with classic symptoms of hyperglycemia or hyperglycemic crisis, random plasma glucose results greater than or equal to 200 mg/dL meet the criteria for diagnosis of diabetes. Reference: Standards of Medical Care in Diabetes 2016, [place] Diabetes Association. Diabetes Care. 2016.39(Suppl 1). Performed By: #### 3 016-3, LIPNF, , 15457-1 #### [facility] CLIA [id number] [address] [place] [address] [place] Potassium [Moles/Vol] 4.7 mmol/L Normal 3.7-5.1 [facility] Comment on above: Order Comment: Speci men Type: BLOOD SPECIMEN Ordering Facility: [facility] Address: [address] [id number] Performed By: #### 3 016-3, LIPNF, , 64643-8 #### [facility] CLIA [id number] [address] [place] [address] [place] Sodium [Moles/Vol] 143 mmol/L Normal 136-144 [facility] Comment on above: Order Comment: Speci men Type: BLOOD SPECIMEN Ordering Facility: [facility] Address: [address] [id number] Performed By: #### 3 016-3, LIPNF, 28373-2, 83399-2 #### [facility] IA [id number] [address] [place] [address] [place] Urea nitrogen [Mass/Vol] 18 mg/dL Normal 7-21 [facility] Comment on above: Order Comment: Speci men Type: BLOOD SPECIMEN Ordering Facility: [facility] Address: [address] [address] Performed By: #### 3 016-3, LIPNF, 11248-2, 33588-2 #### [facility] CLIA [id number] [address] [place] [address] [place] CNOVon 12-27-2022 CNOV Office Visit (DEYSILO ) -------- LESVIA RAMOS I ([id number]) 1950 F Date Time Provider Department 12/27/22 9:00 AM NITZA MAE During your visit today, we recorded the following information about you: Pulse Blood pressure Weight 54/minute 126/84 60.8 kg Nitza Mae APRN.CNP 01/13/2023 6:10 PM Signed [facility] [employer] Jessie Wade Department of Cardiovascular Medicine SECTION OF REGIONAL CARDIOLOGY December 27, 2022 OUTPATIENT VISIT TYPE ESTABLISHED PRIMARY CARE PHYSICIAN: Rachael Canela DO SUBJECTIVE: CHIEF COMPLAINT: Patient presents with: CARD Follow Up 6 Month HISTORY OF PRESENT ILLNESS: Lesvia Ramos is a 72 year old female who presents for CVM follow up. Last seen in department of cardiology 06/27/[address] Andres Boyd. At that time, patient reporting doing well, very rare palpitations. She reported she occasionally uses an extra dose of metoprolol to help with symptoms. She reported some mild bilateral ankle swelling at the end of the day mostly under control with compressions and leg elevation. Today, patient denies chest pain, shortness of breath, orthopnea, cough, significant edema/weight gain, PND, lightheadedness, syncope or other significant cardiac symptoms. Rare palpitations. Last episode 09/2022 and described as brief heart racing that can be accompanied by chest tightness. No recent episodes of heart racing in this new year. Does not drink much caffeine but admits to not drinking much water. Has a glass of wine at supper on occasional. Has been compliant with wearing compressions over the winter. Has helped with the swelling Has noted some places where her hair does not grow; more noticeable in the past year. Has fine hair. Admits has been getting perms to see if hair would improve. She has not started the Mag-ox. 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 Hypertension Hyperlipidemia Atrial flutter, postoperative, no documented recurrence since then, but intermittent palpitations. Moderate TR Echocardiogram 03/01/2017 - The left ventricle is normal in size. Left ventricular systolic function is normal. EF = 62 ? 5% (2D biplane) - The right ventricle is normal in size. Right ventricular systolic function is normal. - The left atrial cavity is moderately dilated. - There is moderate (2+) tricuspid valve regurgitation. - Doris-Tee prosthetic aortic valve (size #23). There is no aortic valve regurgitation. The peak gradient is 24 mmHg, the mean gradient is 12 mmHg and the dimensionless valve index is 0.55. - s/p ascending aortic repair and AVR REVIEW OF SYSTEMS: Detailed 14 systems reviewed. Pertinent information, positive and/or negative or non-contributory with the exception of pertinent positives described in HPI. Past Medical, Family and Social history reviewed; unchanged from prior. ASSESSMENT/PLAN: Lesvia Ramos was seen today for 6 months CVM follow up visit. Diagnoses and all orders for this visit: Encounter Diagnosis ICD-10-CM 1. S/P AVR (aortic valve replacement) and aortoplasty Z95.2 hydroCHLOROthiazide (HYDRODIURIL, ESIDRIX) 12.5 mg capsule 2. SVT (supraventricular tachycardia) (HCC) I47.1 3. APC (atrial premature contractions) I49.1 4. Primary hypertension I10 hydroCHLOROthiazide (HYDRODIURIL, ESIDRIX) 12.5 mg capsule 5. Patchy loss of hair L65.9 MAGNESIUM BLD BASIC METABOLIC PNL TSH BLD CONSULT TO DERMATOLOGY 6. Mixed hyperlipidemia E78.2 LIPID PANEL, NONFASTING 7. Typical atrial flutter (HCC) I48.3 -S/p AVR and aortic root repair for bicuspid aortic valve 11/2014. Doing well with no specific symptoms. Echocardiogram 829 showed: LVEF around 66 %, RV normal size and function. TR mild. No significant AI. Aortic valve gradients 17/, DVI 0. 59. Pre-op cath 2014 with angiographically normal coronaries. -Postoperative atrial flutter. No documented recurrence. SVT, PVCs. Rare palpitations. Continue metoprolol succinate 50 mg daily in the a.m. and metoprolol to succinate 25 mg in the p.m. Can take an additional Toprol XL 25 mg daily as needed for worsening palpitations. Patient previously declined to increase the daily dose. -Mixed hyperlipidemia. LDL goal less than 70 mg/dL. Continue atorvastatin 10 mg daily. Monitor for any myalgias. We will update lipid panel. -Venous insufficiency to bilateral lower extremities. Continue compressions and leg elevations. -BP controlled. Continue hydrochlorothiazide (more content not included)... Normal [facility] LIPID PANEL, NONFASTINGon Cholesterol [Mass/Vol] 148 mg/dL <200 mg/dL [facility] HDL Cholesterol, Nonfasting 69 mg/dL >39 mg/dL [facility] LDL Cholesterol, Nonfasting 67 mg/dL <100 mg/dL [facility] LDL/HDL Ratio, Nonfasting 0.97 mg/dL <2.54 mg/dL [facility] Non HDL Cholesterol, Nonfasting 79 mg/dL <130 mg/dL [facility] Total Chol/HDL Ratio, Nonfasting 2.14 mg/dL <5.10 mg/dL [facility] Triglycerides, Nonfasting 62 mg/dL <150 mg/dL [facility] VLDL Cholesterol, Nonfasting 12 mg/dL <30 mg/dL [facility] Cholesterol [Mass/Vol] 148 mg/dL Normal <200 [facility] Comment on above: Order Comment: Speci men Type: BLOOD SPECIMEN Ordering Facility: [facility] Address: [address] [place] [address] Result Comment: <200 mg/dL, Desirable 200-239 mg/dL, Borderline high >239 mg/dL, High Performed By: #### 3 016-3, LIPNF, , 41048-2 #### [facility] CLIA [id number] [address] [place] HDL CHOLESTEROL, NF 69 mg/dL Normal >39 [facility] Comment on above: Order Comment: Hakeemi men Type: BLOOD SPECIMEN Ordering Facility: [facility] Address: [address] [place] [address] Result Comment: 40-5 9 mg/dL, Acceptable >59 mg/dL, High: Negative risk factor for coronary heart disease <40 mg/dL, Low: Positive risk factor for coronary heart disease Performed By: #### 3 016-3, LIPNF, , 91658-5 #### [facility] CLIA [id number] [address] [place] LDL CHOLESTEROL, NF 67 mg/dL Normal <100 [facility] Comment on above: Order Comment: Speci men Type: BLOOD SPECIMEN Ordering Facility: [facility] Address: [address] [place] [address] Result Comment: <100 mg/dL, Optimal 100-129 mg/dL, Near optimal/above optimal 130-159 mg/dL, Borderline high 160-189 mg/dL, High >189 mg/dL, Very high Secondary prevention optimal LDL Cholesterol levels are recommended to be < 70 mg/dL Performed By: #### 3 016-3, LIPNF, 11387-3, 79929-9 #### [facility] CLIA [id number] [address] OF [place] LDL/HDL RATIO, NF 0.97 mg/dL Normal <2.54 [facility] Comment on above: Order Comment: Brianda andres Type: BLOOD SPECIMEN Ordering Facility: [facility] Address: [address] [place] [address] Result Comment: Viola lawrence: 1. National Cholesterol Education Program ATP III Guideline At-A-Glance Quick Desk Reference: National Heart, Lung, and [employer]. National Institutes of Health. 2001: NIH Publication No. 01-3305. 2. An International Atherosclerosis Society position paper: global recommendations for the management of dyslipidemia: executive summary, Atherosclerosis. 2014: 232(2):410-413. Performed By: #### 3 016-3, LIPNF, , 28837-0 #### [facility] CLIA [id number] [address] [place] [address] STATES OF [facility] NON HDL CHOL, NF 79 mg/dL Normal <130 [facility] Comment on above: Order Comment: Brianda andres Type: BLOOD SPECIMEN Ordering Facility: [facility] Address: [address] [place] [address] Result Comment: <130 mg/dL, Optimal 130-159 mg/dL, Near optimal/above optimal 160-189 mg/dL, Borderline high 190-219 mg/dL, High >219 mg/dL, Very high Secondary prevention optimal non HDL Cholesterol levels are recommended to be <100 mg/dL Performed By: #### 3 016-3, LIPNF, , 80096-6 #### [facility] CLIA [id number] [address] [place] [address] STATES OF [facility] T CHOL/HDL RATIO NF 2.14 mg/dL Normal <5.10 [facility] Comment on above: Order Comment: Brianda andres Type: BLOOD SPECIMEN Ordering Facility: [facility] Address: [address] [place] [address] Performed By: #### 3 016-3, LIPNF, , 71207-8 #### [facility] CLIA [id number] [facility] OF [place] TRIGLYCERIDES, NF 62 mg/dL Normal <150 [facility] Comment on above: Order Comment: Speci men Type: BLOOD SPECIMEN Ordering Facility: [facility] Address: [address] [place] [address] Result Comment: <150 mg/dL, Normal 150-199 mg/dL, Borderline high 200-499 mg/dL, High >499 mg/dL, Very high Performed By: #### 3 016-3, LIPNF, , 63812-2 #### [facility] CLIA [id number] [facility] [place] [address] [place] VLDL CHOLESTEROL, NF 12 mg/dL Normal <30 [facility] Comment on above: Order Comment: Speci men Type: BLOOD SPECIMEN Ordering Facility: [facility] Address: [address] [place] [address] Performed By: #### 3 016-3, LIPNF, , 82387-3 #### [facility] CLIA [id number] [address] [place] [address] [place] MAGNESIUM BLDon 12-27-2022 Magnesium [Mass/Vol] 2.2 mg/dL 1.7 - 2.3 mg/dL [facility] Magnesium SerPl-mCncon 12-27 Magnesium [Mass/Vol] 2.2 mg/dL Normal 1.7-2.3 [facility] Comment on above: Order Comment: Speci men Type: BLOOD SPECIMEN Ordering Facility: [facility] Address: [address] [place], [place] [id number] Performed By: #### 3 016-3, LIPNF, , 56857-9 #### [facility] CLIA [id number] [address] [place] [address] [place] TSH BLDon 12-27-2022 TSH Qn 0.577 m[IU]/L 0.270 - 4.200 mIU/L [facility] TSH SerPl-aCncon 12-27-2022 TSH Qn 0.577 m[IU]/L Normal 0.270-4.200 [facility] Comment on above: Order Comment: Speci men Type: BLOOD SPECIMEN Ordering Facility: [facility] Address: [address] [place] [id number] Performed By: #### 3 016-3, LIPNF, 85023-5, 64954-2 #### [facility] CLIA [id number] [address] [facility] [place] [id number] [facility] RAD - MISCon 12-13-2022 RAD - MISC [id number]: 127 Normal [facility] Ambulatory Visit Summaryon 0 12-09-2022 Ambulatory Visit Summary LESVIA RAMOS I :1950 Visit Date:12/09/2022 Ambulatory Visit Instructions Your Diagnosis History of renal stone Stress incontinence Tests Performed Urnls Dip Stick Auto w/o Microscopy POC 30633 XR Abdomen 1 View -- Results Pending -- Please visit your patient portal for your results or contact your primary care physician. Your Care Team Attending Physician - [place] CHAUDHARY MD Primary Care Physician - RACHAEL CANELA DO This Is Your Medications List Contact prescribing physician if questions or concerns atorvastatin (atorvastatin 10 mg Tab) ergocalciferol (Vitamin D2 2000 intl units oral capsule) hydrochlorothiazide (hydrochlorothiazide 12.5 mg Cap) latanoprost ophthalmic (latanoprost Opth 0.005% Jeanie) levothyroxine lisinopril metoprolol (metoprolol 25 mg ER Tab) Procedures Performed CE - Cataract extraction (2021), AVR - Aortic valve replacement (10/30/2014), Colonoscopy. Discharge Vitals Heart Rate (Peripheral) 68 Respiratory Rate 16 Blood Pressure 117/69 Height 162 cm Height 64 in Weight 63.7 kg Weight 140.14 lb BMI 24.27 What to do next Scheduled Follow-Up Appointments Monday 9:00 AM EST With: [place] CHAUDHARY MD Where: [facility] Patient Educationon 02-10-20 23 Patient Education Urology Urinary Incontinence Urinary incontinence refers to a condition in which a person is unable to control where and when to pass urine. A person with this condition will urinate when he or she does not mean to (involuntarily). What are the causes? This condition may be caused by: ? Medicines. ? Infections. ? Constipation. ? Overactive bladder muscles. ? Weak bladder muscles. ? Weak pelvic floor muscles. These muscles provide support for the bladder, intestine, and, in women, the uterus. ? Enlarged prostate in men. The prostate is a gland near the bladder. When it gets too big, it can pinch the urethra. With the urethra blocked, the bladder can weaken and lose the ability to empty properly. ? Surgery. ? Emotional factors, such as anxiety, stress, or post-traumatic stress disorder (PTSD). ? Pelvic organ prolapse. This happens in women when organs shift out of place and into the vagina. This shift can prevent the bladder and urethra from working properly. What increases the risk? The following factors may make you more likely to develop this condition: ? Older age. ? Obesity and physical inactivity. ? and childbirth. ? Menopause. ? Diseases that affect the nerves or spinal cord (neurological diseases). ? Long-term (chronic) coughing. This can increase pressure on the bladder and pelvic floor muscles. What are the signs or symptoms? Symptoms may vary depending on the type of urinary incontinence you have. They include: ? A sudden urge to urinate, but passing urine involuntarily before you can get to a bathroom (urge incontinence). ? Suddenly passing urine with any activity that forces urine to pass, such as coughing, laughing, exercise, or sneezing (stress incontinence). ? Needing to urinate often, but urinating only a small amount, or constantly dribbling urine (overflow incontinence). ? Urinating because you cannot get to the bathroom in time due to a physical disability, such as arthritis or injury, or communication and thinking problems, such as Alzheimer disease (functional incontinence). How is this diagnosed? This condition may be diagnosed based on: ? Your medical history. ? A physical exam. ? Tests, such as: ? Urine tests. ? X-rays of your kidney and bladder. ? Ultrasound. ? CT scan. ? Cystoscopy. In this procedure, a health care provider inserts a tube with a light and camera (cystoscope) through the urethra and into the bladder in order to check for problems. ? Urodynamic testing. These tests assess how well the bladder, urethra, and sphincter can store and release urine. There are different types of urodynamic tests, and they vary depending on what the test is measuring. To help diagnose your condition, your health care provider may recommend that you keep a log of when you urinate and how much you urinate. How is this treated? Treatment for this condition depends on the type of incontinence that you have and its cause. Treatment may include: ? Lifestyle changes, such as: ? Quitting smoking. ? Maintaining a healthy weight. ? Staying active. Try to get 150 minutes of moderate-intensity exercise every week. Ask your health care provider which activities are safe for you. ? Eating a healthy diet. ? Avoid high-fat foods, like fried foods. ? Avoid refined carbohydrates like white bread and white rice. ? Limit how much alcohol and caffeine you drink. ? Increase your fiber intake. Foods such as fresh fruits, vegetables, beans, and whole grains are healthy sources of fiber. ? Pelvic floor muscle exercises. ? Bladder training, such as lengthening the amount of time between bathroom breaks, or using the bathroom at regular intervals. ? Using techniques to suppress bladder urges. This can include distraction techniques or controlled breathing exercises. ? Medicines to relax the bladder muscles and prevent bladder spasms. ? Medicines to help slow or prevent the growth of a man's prostate. ? Botox injections. These can help relax the bladder muscles. ? Using pulses of electricity to help change bladder reflexes (electrical nerve stimulation). ? For women, using a medical radiation dosimetrist to prevent urine leaks. This is a small, tampon-like, disposable device that is inserted into the urethra. ? Injecting collagen or carbon beads (bulking agents) into the urinary sphincter. These can help thicken tissue and close the bladder opening. ? Surgery. Follow these instructions at home: Lifestyle ? Limit alcohol and caffeine. These can fill your bladder quickly and irritate it. ? Keep yourself clean to help prevent odors and skin damage. Ask your doctor about special skin creams and cleansers that can protect the skin from urine. ? Consider wearing pads or adult diapers. Make sure to change them regularly, and always change them right after experiencing incontinence. General instructions ? Take ochc-mnl-lnuoghk and prescription medicines only as (more content not included)... Normal [facility] Urology Office/Clinic Noteon 12-09-2022 Urology Office/Clinic Note Chief Complaint hx of renal stone HPI Staff Pt is here for 1 year f/u with KUB. Previous dx of hx of renal stone and stress incontinence. Current KUB done 12/05/22 shows no appreciable urinary tract calculi. Dysuria: no Incomplete bladder emptying: no Hematuria: no Frequency: no Urgency: no Nocturia: 1x Stream: good stream without straining Leaking: very rare Post void dripping: no Wearing pads/ Depends: pad just in case usually doesn't have to change Urge incontinence: no Stress incontinence: sometimes with really hard cough or laugh Incontinence without Sensory Awareness: no Abdominal pain: no Flank pain: no Sexual complaints: no History of Present Illness Tests reviewed: reviewed UA & KUB. I have reviewed the previous health record information and history for this patient from Dr. Chaudhary. I have reviewed and verified the staff HPI to be accurate for this encounter. There have been no associated fever, chills, flank pain, or blood in the urine. Denies any urinary infections since last encounter. Review of Systems PHQ Score Initial Depression Screen Score: 0 ROS - Provider Constitutional: denies weight loss, denies hot flashes. Eyes: denies eye problems. Gastrointestinal: denies nausea, denies vomiting. Cardiovascular: denies chest pain or angina. Integumentary: no dryness Musculoskeletal: denies musculoskeletal symptoms. ENMT: denies otolaryngeal symptoms. Respiratory: no shortness of breath. Heme/Lymph: denies easy bleeding tendency, denies easy bruising tendency. Psychiatric: no confusion, no anxiety. Genitourinary: denies vaginal discharge, denies incontinence, denies dysuria, denies hematuria, denies urinary frequency, denies amenorrhea, denies menorrhagia, denies abnormal bleeding, denies pelvic pain, denies genital sores, and denies decreased libido. Physical Exam Vitals & Measurements HR: 68(Peripheral) RR: 16 BP: 117/69 HT: 64 in HT: 162 cm WT: 63.7 kg WT: 140.14 lb BMI: 24.27 General Appearance: alert , no acute distress, well nourished, well developed female. Genitourinary: bladder nonpalpable, no flank pain. Assessment/Plan 1. History of renal stone (Z87.442: Personal history of urinary calculi) KUB done 12/05/22 shows no obvious stones. Denies stone episodes or pain since last encounter. Discussed w/ pt at the last encounter that her stones are calcium oxalate, monohydrate. Pt was advised at that time to not decrease her calcium intake, reiterated today. Last stone was 05/2020 and was able to pass it on her own. Admits to not drinking enough water but states she is trying to increase her fluids. Right now she is drinking roughly 4 large glasses of water. Recommended pt. to increase fluid intake to ten to twelve 16oz bottles a day; preferably water, clear pop, and sugar free lemonade. Discussed following up PRN vs. continuing to monitor. Prefers to continue annual follow up. Repeat KUB in 1 year. All questions/concerns were discussed. Pt. to call the office if heencounters any issues prior. Pt. acknowledges understanding. 2. Stress incontinence (N39.3: Stress incontinence (female) (male)) Leakage with hard coughing or laughing. Does wear a pad just in case but admits she usually doesn't have to change. Follow-up With When Contact Information IRMA RECINOS, [place] Yang, [place] [id number]- Additional Instructions: 1 year w/ KUB Patient Education Urinary Incontinence Pita Cool, personally scribed for Dr. Chaudhary on 12/09/2022 09:30:39. . Documentation recorded by the scribe, Pita Romero, accurately reflects the services(s) I performed and decisions made by me. Authenticated by Dr. Chaudhary on 12/09/2022 09:35:35. Problem List/Past Medical History Ongoing Abdominal pain Gross hematuria History of renal stone Hydronephrosis with ureteral calculus Renal stone Right flank pain Stress incontinence Historical AF - Atrial fibrillation Arthritis Heart murmur Hypertension Procedure/Surgical History CE - Cataract extraction (2021), AVR - Aortic valve replacement (10/30/2014), Colonoscopy. 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 Normal [facility] Comment on above: Result Comment: Elec tronically Signed By: [place] CHAUDHARY MD\.br\Date and Time Signed: 12/09/22 09:35 EST\.br\Electronically Co-Signed By: Pita Romero\.br\Date and Time Co-Signed: 12/09/22 09:32 EST\.br\Electronically Co-Signed By: Pita Romero\.br\Date and Time Co-Signed: 12/09/22 09:34 EST XR KUB 1 VIEWon 12-05-2022 XR KUB 1 VIEW EXAMINATION: XR KUB 1 VIEW HISTORY: Kidney stone COMPARISON: XR KUB 11/30/2021 FINDINGS: KIDNEY/URETER - RIGHT: No visible renal or ureteral calcifications. KIDNEY/URETER - LEFT: No visible renal or ureteral calcifications. PELVIS: No visible ureteral stones. Stable pelvic calcifications compatible with phleboliths. BOWEL: No abnormal dilation or deviation. BONES: No acute abnormality. OTHER: Numerous small granulomas within spleen. IMPRESSION: 1. No appreciable urinary tract calculi. Electronically authenticated by: MEERA HARTMANN Date: 2022-12-05 11:09 Normal [facility] MM screening mammo BI w/CADo n 09-12-2022 MM screening mammo BI w/CAD [facility] [place] [address] Mammography Report Signed Patient: Lesvia Ramos MR#: [id number] : 1950 Acct:[id number] Age/Sex: 71 / F ADM Date: 09/12/22 Loc: OR Room: Type: [facility] CLI Attending Dr: Referral Self Copies to: Rachael Canela,DO SELF,REFERRAL Carlos King DO Ordering Provider: SELF,REFERRAL Date of Service: 09/12/22 MM/MM screening mammo BI w/CAD: SCREENING CLINICAL DATA: Screening for malignancy. BILATERAL SCREENING MAMMOGRAMS - FULL FIELD DIGITAL WITH TOMOSYNTHESIS AND CAD Tomosynthesis craniocaudal and mediolateral oblique views of both breasts were obtained using low- dose digital technique. Comparison is made to prior studies from January 10, 2017 through November 25, 2020. This examination was reviewed with the aid of CAD. There are scattered fibroglandular densities. Benign calcifications are visualized. There are no developing masses, typically malignant calcifications or architectural distortion. There has been no significant interval change. MM/MM screening mammo BI w/CAD IMPRESSION: NO MAMMOGRAPHIC EVIDENCE OF MALIGNANCY. ROUTINE FOLLOW-UP IS RECOMMENDED IN ONE YEAR. RESULT CODE: 2 Benign Findings(s) DENSITY CODE: 2 (approximately 25-50% glandular) FOLLOW UP: 1YR The false-negative rate of mammography is approximately 10-percent. Management of a palpable abnormality must be based on clinical grounds. Patient was entered into a reminder system with a target due date for the next mammogram. Impression dictated by: Lorene Spencer M.D.09/12/2022 3:28 PM Dictation Location: [facility] Transcribed By: [facility] 09/12/22 152 Dictated By: Lorene Spencer MD 09/12/22 1525 Signed By: 09/12/22 1528 [facility] COMPREHENSIVE METABOLIC PANE Young 11-09-2021 Albumin [Mass/Vol] 4.3 g/dL Normal 3.6-5.1 [facility] Comment on above: Performed By: #### 1 9754, 8065, 05146 #### [facility] [address], [address] [place] [address] Manual Control [employer]er Press Operator: Abraham Garcia MD Albumin/Globulin [Mass ratio] 1.8 {ratio} Normal 1.0-2.5 [facility] Comment on above: Performed By: #### 1 0231, 7600, 75189 #### [facility] of [address], [address] [place] [address] Manual Control [employer] Operator: Abraham Garcia MD ALP [Catalytic activity/Vol] 84 U/L Normal 37-153 [facility] Comment on above: Performed By: #### 1 0231, 0, 05110 #### [facility] of [address], [address] [place] [address] Manual Control [employer] Operator: Abraham Garcia MD ALT [Catalytic activity/Vol] 16 U/L Normal 6-29 [facility] Comment on above: Performed By: #### 1 0231, 7599, 89049 #### [facility] of [address], [address] [place] [address] Manual Control [employer] Operator: Abraham Garcia MD AST [Catalytic activity/Vol] 17 U/L Normal 10-35 [facility] Comment on above: Performed By: #### 1 0231, 0, 86712 #### [facility] of [place] [address] Manual Control [employer] Operator: Abraham Garcia MD Bilirubin [Mass/Vol] 1.0 mg/dL Normal 0.2-1.2 [facility] Comment on above: Performed By: #### 1 0231, 0, 42363 #### [facility] of [place] [address] Manual Control [employer] Operator: Abraham Garcia MD BUN/CREATININE RATIO NOT APPLICABLE Normal 6-22 [facility] Comment on above: Performed By: #### 1 0231, 7600, 27307 #### [facility] of [place] [address] Manual Control [employer] Operator: Abraham Garcia MD Calcium [Mass/Vol] 9.3 mg/dL Normal 8.6-10.4 [facility] Comment on above: Performed By: #### 1 0231, 0, 45572 #### [facility] [address], [address] [place] [address] Manual Control [employer] Operator: Abraham Garcia MD Chloride [Moles/Vol] 104 mmol/L Normal 98-110 [facility] Comment on above: Performed By: #### 1 0231, 7600, 16402 #### [facility] [address], [address] [place] [address] Manual Control [employer] Operator: Abraham Garcia MD CO2 [Moles/Vol] 31 mmol/L Normal 20-32 [facility] Comment on above: Performed By: #### 1 0231, 0, 17185 #### [facility] [place] [address] Manual Control [employer] Operator: Abraham Garcia MD Creatinine [Mass/Vol] 0.89 mg/dL Normal 0.60-0.93 [facility] Comment on above: Result Comment: For patients >49 years of age, the reference limit for Creatinine is approximately 13% higher for people identified as -[place]. Performed By: #### 1 023, 0, 00254 #### [facility] [place] [address] Manual Control Auger Press Operator: Abraham Garcia MD eGFR NON-AFR. UKRAINIAN 65 mL/min/1.73m2 Normal > OR = 60 [facility] Comment on above: Performed By: #### 1 023, 0, 01398 #### [facility] [place] [address] Manual Control Auger Press Operator: Abraham Garcia MD GFR/1.73 sq M.predicted among blacks MDRD (S/P/Bld) [Vol rate/Area] 76 mL/min/{1.73_m2} Normal > OR = 60 [facility] Comment on above: Performed By: #### 1 0231, 7600, 74867 #### [facility] [place] [address] Manual Control Auger Press Operator: Abraham Garcia MD Globulin (S) [Mass/Vol] 2.4 g/dL Normal 1.9-3.7 [facility] Comment on above: Performed By: #### 1 023, 7599, 51048 #### [facility] of [address], [address] [place] [address] Manual Control Auger Press Operator: Abraham Garcia MD Glucose [Mass/Vol] 90 mg/dL Normal 65-99 [facility] Comment on above: Result Comment: Fasting reference interval Performed By: #### 1 0231, 7599, 60569 #### [facility] of [address], [address] [place] [address] Manual Control Auger Press Operator: Abraham Garcia MD Potassium [Moles/Vol] 4.0 mmol/L Normal 3.5-5.3 [facility] Comment on above: Performed By: #### 1 230, 7599, 32266 #### [facility] of [address], [address] [place] [address] Manual Control Auger Press Operator: Abraham Garcia MD Protein [Mass/Vol] 6.7 g/dL Normal 6.1-8.1 [facility] Comment on above: Performed By: #### 1 023, 7599, 72085 #### [facility] of [place] [address] Manual Control Auger Press Operator: Abraham Garcia MD Sodium [Moles/Vol] 140 mmol/L Normal 135-146 [facility] Comment on above: Performed By: #### 1 023, 7599, 65036 #### [facility] of [place] [address] Manual Control Auger Press Operator: Abraham Garcia MD Urea nitrogen [Mass/Vol] 22 mg/dL Normal 7-25 [facility] Comment on above: Performed By: #### 1 023, 7599, 86077 #### [facility] of [place] [address] Manual Control Auger Press Operator: Abraham Garcia MD LIPID PANEL, [facility] 10-30 Cholesterol [Mass/Vol] 165 mg/dL Normal <200 [facility] Comment on above: Order Comment: FASTI NG:YES FASTING: YES Performed By: #### 1 0231, 7600, 53656 #### [facility] [address], [address] [place] [address] Manual Control Auger Press Operator: Abraham Garcia MD Cholesterol in HDL [Mass/Vol] 78 mg/dL Normal > OR = 50 [facility] Comment on above: Order Comment: FASTI NG:YES FASTING: YES Performed By: #### 1 0231, 7600, 91654 #### [facility] [address], [address] [place] [address] Manual Control Auger Press Operator: Abraham Garcia MD Cholesterol in LDL [Mass/Vol] 73 mg/dL Normal [facility] Comment on above: Order Comment: FASTI NG:YES FASTING: YES Result Comment: Refe rence range: <100 Desirable range <100 mg/dL for primary prevention; <70 mg/dL for patients with CHD or diabetic patients with > or = 2 CHD risk factors. LDL-C is now calculated using the Kai-Rachelle calculation, which is a validated novel method providing better accuracy than the Friedewald equation in the estimation of LDL-C. Kai SS et al. ZANDER. 2013;310(19): 4924-3464 (http://education.Kinesense/faq/HUF020) Performed By: #### 1 0231, 0140, 34301 #### [facility] [address], [address] [place] [address] Manual Control Auger Press Operator: Abraham Garcia MD Cholesterol.total/ Cholesterol in HDL [Mass ratio] 2.1 {ratio} Normal <5.0 [facility] Comment on above: Order Comment: FASTI NG:YES FASTING: YES Performed By: #### 1 0231, 7600, 54172 #### [facility] [place] [address] Manual Control Auger Press Operator: Abraham Garcia MD NON HDL CHOLESTEROL 87 mg/dL (calc) Normal <130 [facility] Comment on above: Order Comment: FASTI NG:YES FASTING: YES Result Comment: For patients with diabetes plus 1 major ASCVD risk factor, treating to a non-HDL-C goal of <100 mg/dL (LDL-C of <70 mg/dL) is considered a therapeutic option. Performed By: #### 1 0231, 7600, 61697 #### [facility] [address], [address] [place] [address] Manual Control Auger Press Operator: Abraham Garcia MD Triglyceride [Mass/Vol] 61 mg/dL Normal <150 [facility] Comment on above: Order Comment: FASTI NG:YES FASTING: YES Performed By: #### 1 0231, 7600, 03344 #### [facility] [place] [address] Manual Control Auger Press Operator: Abraham Garcia MD TSH+FREE T4on 11-09-2021 Free T4 [Mass/Vol] 1.4 ng/dL Normal 0.8-1.8 [facility] Comment on above: Performed By: #### 1 0231, 7599, 56446 #### [facility] [place] [address] Manual Control Auger Press Operator: Abraham Garcia MD TSH Qn 1.19 m[IU]/L Normal 0.40-4.50 [facility] Comment on above: Performed By: #### 1 023, 760, 21228 #### [facility] [place] [address] Manual Control Auger Press Operator: Abraham Garcia MD OBSOLETEon 07-21-2020 OBSOLETE Refill (AVPRAD) -------- LESVIA RAMOS I ([id number]) 1950 F Date Time Provider Department 07/21/20 ANDRES BOYD During your visit today, we recorded the following information about you: Allergies As of Date: 07/21/2020 Noted Allergy Reaction HEPARIN 12/09/2014 14 - Other: See Comments Comments: HIT SULFA (SULFONAMIDE ANTIBIOTICS) 11/17/2011 2 - Rash Date Reviewed: 06/25/2020 Reviewed by: Chyna White - Fully Assessed Reason for Visit: Refill Request [94] Visit Diagnoses:S/P AVR (aortic valve replacement) 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] SVT (supraventricular tachycardia) (HCC) [I47.1] Essential hypertension [I10] Order(s):metoprolol succinate ER (TOPROL XL) 25 mg 24 hr tabletTake 1 tablet by mouth as directed. Take 50 mg am and 25 mg pmDisp: Rfl: Prescriptions as of 07/21/2020 Sig: METOPROLOL SUCCINATE ER 25 MG* Take 1 tablet by mouth as dir* GABAPENTIN 300 MG CAPSULE Take 1 capsule by mouth three* Patient not taking: Reported on 06/25/2020 TIZANIDINE 4 MG TABLET Take 1 tablet by mouth at bed* SIMVASTATIN 10 MG TABLET Take 1 tablet by mouth daily * LEVOTHYROXINE 75 MCG TABLET Take 1 tablet by mouth daily * AMOXICILLIN 500 MG TABLET Take 4 tablets by mouth 30-60* ACETAMINOPHEN 325 MG TABLET Take 2 tablets by mouth every* Problem List As Of Date 07/21/2020 Noted Resolved Thoracic back pain [M54.6] 11/17/2011 12/03/2014 Aortic stenosis [I35.0] 12/01/2014 Ascending aortic aneurysm (HCC) [I71.2] 12/02/2014 More... Pre-op testing [Z01.818] 11/19/2014 12/02/2014 More... More... Aortic stenosis AND dilated ascending thoracic ao*12/01/2014 More... Acute postoperative pain [G89.18] 12/02/2014 12/03/2014 More... Acute blood loss anemia [D62] 12/01/2014 12/03/2014 More... Thrombocytopenia (HCC) [D69.6] 12/02/2014 12/03/2014 More... Atelectasis/volume overload [J98.11] 12/02/2014 12/16/2014 More... SUMMARY [V999.95] 12/02/2014 More... HTN [I10] 12/02/2014 More... Hyperlipidemia [E78.5] 12/02/2014 More... Stress hyperglycemia [R73.9] 12/03/2014 12/05/2014 More... Nausea [R11.0] 12/04/2014 12/06/2014 More... Hypothyroidism [E03.9] 12/04/2014 More... Stroke (cerebrum) (HCC) [I63.9] 12/07/2014 12/09/2014 Ischemic stroke diagnosed during current admiss*12/08/2014 12/09/2014 HIT (+) [D75.82] 12/09/2014 More... Change in mental status [R41.82] 12/09/2014 12/20/2014 More... Atrial flutter (HCC) [I48.92] 12/12/2014 More... 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 Malnutrition of moderate degree (HCC) [E44.0] 12/24/2014 More... Anemia [D64.9] 12/27/2014 More... 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 Take 50 mg am and 25 mg pm Medications Discontinued During This Encounter Prescriptions - metoprolol succinate ER (TOPROL XL) 25 mg 24 hr tablet (Discontinued) Take 1 tablet by mouth twice daily at 6AM and 9PM. Encounter Status:Closed by ANDRES BOYD on 07/21/20 [facility] Large Joint Arthro/Inj: L solis bacromtyler fana [facility] Vital Signs Date Time Vital Sign Value Performing Clinician Rebekah castano 11-10-2023 09:25-0500 Body height 162.6 cm Rachael Canela DO Work Phone: [facility] 11-10-2023 09:25-0500 Body mass index (BMI) [Ratio] 22.52 kg/m2 Rachael Chairezs DO Work Phone: [facility] 11-10-2023 09:25-0500 Body temperature 97.9 [degF] Rachael Canela DO Work Phone: [facility] [employer] 11-10-2023 09:25-0500 Body weight 59.51 kg Rachael Canela DO Work Phone: [facility] [employer] 11-10-2023 09:25-0500 Diastolic blood pressure 76 mm[Hg] Rahcael Canela DO Work Phone: [facility] [employer] 11-10-2023 09:25-0500 Heart rate 77 /min Rachael Canela DO Work Phone: [facility] [employer] 11-10-2023 09:25-0500 SaO2% (BldA) [Mass fraction] 99 % Rachael Canela DO Work Phone: [facility] [employer] 11-10-2023 09:25-0500 Systolic blood pressure 110 mm[Hg] Rachael Canela DO Work Phone: [facility] [employer] [facility] 06-27-2023 08:53-0400 Body weight 58.97 kg Andres Boyd MD Work Phone: [facility] 06-27-2023 08:53-0400 Diastolic blood pressure 82 mm[Hg] Andres Boyd MD Work Phone: [facility] 06-27-2023 08:53-0400 Heart rate 69 /min Andres Boyd MD Work Phone: [facility] 06-27-2023 08:53-0400 Systolic blood pressure 140 mm[Hg] Andres Boyd MD Work Phone: [facility] 12-27-2022 08:51-0500 Body weight 60.78 kg Lavisa Mae ROOM SERVICE WAITER/WAITRESS.MARKETING AUTOMATION SPECIALIST Work Phone: [facility] 12-27-2022 08:51-0500 Diastolic blood pressure 84 mm[Hg] Nitza Mae ROOM SERVICE WAITER/WAITRESS.MARKETING AUTOMATION SPECIALIST Work Phone: [facility] 12-27-2022 08:51-0500 Heart rate 54 /min Nitza Mae ROOM SERVICE WAITER/WAITRESS.MARKETING AUTOMATION SPECIALIST Work Phone: [facility] 12-27-2022 08:51-0500 Systolic blood pressure 126 mm[Hg] Nitza Mae ROOM SERVICE WAITER/WAITRESS.MARKETING AUTOMATION SPECIALIST Work Phone: [facility] 12-09-2022 08:27-0500 Blood Pressure Location [place] [facility] 12-09-2022 08:27-0500 Diastolic blood pressure 69 mm[Hg] [place] [facility] 12-09-2022 08:27-0500 Heart rate 68 /min [place] [facility] 12-09-2022 08:27-0500 Respiratory rate 16 /min [place] [facility] 12-09-2022 08:27-0500 Systolic blood pressure 117 mm[Hg] [place] Encounters Encounter Date Encounter Type Care Provider Facility Start: 12-11-2023 ambulatory MD [place] CHAUDHARY Fac ility:[facility] Start: 11-10-2023 End: 11-10-2023 ambulatory [facility] Mandeep CANELA [facility] Start: 11-10-2023 End: 11-10-2023 Office outpatient visit 25 minutes Rachael Canela DO Work Phone: [facility] Comment on above: Essential hypertensi on (Primary Dx); Hyperlipidemia, unspecified hyperlipidemia type; Sciatica of left side; 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-induced thrombocytopenia) ([facility]-H[facility]) Start: 11-06-2023 Refill Rachael Costello Work Phone: [facility] Comment on above: Hyperlipidemia, unsp ecified Start: 08-28-2023 Refill Andres marin MD Work Phone: Cardiology Comment on above: Refill Request Start: 06-27-2023 End: 06-28-2023 ambulatory RACHAEL CANELA Facility:[facility] Start: 06-27-2023 End: 06-27-2023 Patient encounter procedure Andres Boyd MD Work Phone: Cardiology Comment on above: S/P AVR (aortic valv e replacement) 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 (Primary Dx); APC (atrial premature contractions); SVT (supraventricular tachycardia) (HCC); Primary hypertension; Venous (peripheral) insufficiency Start: 05-30-2023 End: 05-30-2023 ambulatory INDIGO SALDAÑA Facility:[facility] Start: 05-30-2023 End: 05-30-2023 Patient encounter procedure Indigo Saldaña DO Work Phone: Orthopaedics Comment on above: Impingement syndrome of left shoulder (Primary Dx) Start: 05-30-2023 End: 05-30-2023 Subsequent hospital visit by physician Gregory Guerin [facility] Rej Work Phone: Radiology Comment on above: Pain [R52] Start: 04-28-2023 ambulatory Andres marin MD Work Phone: Cardiology Comment on above: new medication Start: 12-27-2022 End: 12-28-2022 ambulatory NITZA MAE Facility:[facility] Start: 12-27-2022 End: 12-27-2022 Patient encounter procedure Nitza Mae APRN.MARKETING AUTOMATION SPECIALIST Work Phone: Cardiology Comment on above: S/P AVR (aortic valv e replacement) and aortoplasty (Primary Dx); SVT (supraventricular tachycardia) (HCC); APC (atrial premature contractions); Primary hypertension; Patchy loss of hair; Mixed hyperlipidemia; Typical atrial flutter (HCC) Start: 12-17-2022 Refill Cheyanne Urena y ROOM SERVICE WAITER/WAITRESS.MARKETING AUTOMATION SPECIALIST Work Phone: Cardiology Comment on above: Refill Request Start: 12-09-2022 End: 12-10-2022 ambulatory MD [place] CHAUDHARY Facility:[facility] Start: 12-09-2022 End: 12-09-2022 Patient encounter procedure [place] [facility] Start: 12-05-2022 End: 12-06-[address] [place] CHAUDHARY Facility: Start: 09-12-2022 End: 09-12-2022 ambulatory Carlos King Facility:[facility] Start: 09-12-2022 End: 09-12-2022 ambulatory DO Rachael Canela Work Phone: [facility] Work Phone: Start: 09-12-2022 End: 09-12-2022 Patient encounter procedure DO Rachael Maryesther Work Phone: [facility] Start: 07-02-2022 Refill Cheyanne Urena y CHARLETTE.MARKETING AUTOMATION SPECIALIST Work Phone: Cardiology Comment on above: Refill Request Start: 06-02-2022 Refill Andres marin MD Work Phone: Cardiology Comment on above: Refill Request Start: 12-16-2021 ambulatory SANIA E ERON Facili ty:[facility] Start: 12-15-2021 ambulatory SANIA E ERON Facili ty:[facility] Procedures Date Procedure Procedure Detail Performing Clinician Start: 11-10-2023 Adult depression scr eening assessment Rachael Canela DO Work Phone: Start: 09-27-2023 Adult depression scr eening assessment Rachael Canela DO Work Phone: Start: 06-27-2023 Ecg routine ecg w/le ast 12 lds i&r only [facility] Provider Start: 05-30-2023 Arthrocentesis aspir &/inj major jt/bursa w/o us Indigo Saldaña DO Work Phone: Start: 05-30-2023 Radex shoulder compl ete minimum 2 views Indigo Saldaña DO Work Phone: Start: 12-27-2022 Lipid 1996 panel - S migel or Plasma Andres Boyd MD Work Phone: Start: 09-12-2022 Screening mammograph y of bilateral breasts DO Rachael Canela Work Phone: Start: 10-30-2021 Extraction of cataract [place] Start: 12-17-2018 Adult depression scr eening assessment Andres Boyd MD Work Phone: Start: 10-30-2014 Replacement of aortic valve [place] [facility] [place] Plan of Treatment Date Care Activity Detail Author Start: 12-27-2027 Lipid 1996 panel - S migel or Plasma Lipid Screening [facility] Start: 12-27-2027 LIPID SCREEN LIPID SCREEN [facility] Start: 07-17-2027 DTaP,Tdap and Td Vac cines (2 - Td or Tdap) DTaP,Tdap and Td Vaccines (2 - Td or Tdap) [facility] Start: 07-17-2027 Urine microalbumin profile DTa P,Tdap,Td Vaccine (2 - Td or Tdap) [facility] Start: 06-29-2026 LIPID SCREEN LIPID SCREEN [facility] Start: 06-27-2026 Diabetes Screening Diabetes Screenin g [facility] Start: 12-27-2025 DIABETES SCREEN DIABETES SCREEN [facility] Start: 11-10-2024 Adult BMI Screening Adult BMI Screen ing [facility] Start: 11-10-2024 Depression Screening Depression Scre ening [facility] Start: 11-10-2024 Fall Risk Screening Fall Risk Screen ing [facility] Start: 11-10-2024 Tobacco Screening Tobacco Screening [facility] Start: 09-27-2024 Adult BMI Screening Adult BMI Screen ing [facility] Start: 09-27-2024 Depression Screening Depression Scre ening [facility] Start: 09-27-2024 Fall Risk Screening Fall Risk Screen ing [facility] Start: 09-27-2024 Tobacco Screening Tobacco Screening [facility] Start: 06-29-2024 DIABETES SCREEN DIABETES SCREEN [facility] Start: 12-28-2023 End: 06-27-2024 Echocardiography ECHO Cardiology Routine SVT (supraventricular tachycardia) (HCC) Expected: 12/28/2023, Expires: 06/27/2024 [facility] Work Phone: Comment on above: Expected: 12/28/2023 , Expires: 06/27/2024 Start: 11-23-2023 End: 11-23-2023 Patient encounter procedure 11/23/2023 11:00 AM EST Office Visit [facility] [address] [place] [address] [facility] - Family [facility] Start: 11-10-2023 End: 11-10-2023 Patient encounter procedure 11/10/2023 9:20 AM EST Office Visit [facility] - [facility] [address] [place] [address] Rachael Canela, [address] [place] [address] [facility] Start: 06-30-2023 Covid-19 Vaccine ( season) Covid-19 Vaccine ( season) [facility] Start: 06-30-2023 Influenza vaccination C [facility] Start: 06-27-2023 End: 08-27-2023 Comprehensive metabolic 2000 panel - Serum or Plasma [facility] Work Phone: Comment on above: Expected: 06/27/2023 , Expires: 08/27/2023 Start: 12-17-2022 COVID-19 VACCINE (6 - Pfizer series) COVID-19 VACCINE (6 - Pfizer series) [facility] Start: 10-30-2022 ADVANCE DIRECTIVE DISCUSSION ADVANCE DIRECTIVE DISCUSSION [facility] Start: 10-30-2022 DEPRESSION ASSESSMENT DEPRESSION ASS ESSMENT [facility] Start: 06-30-2022 Influenza vaccination INFLUENZA (#1) [facility] Start: 04-14-2022 COVID-19 VACCINE (5 - Booster for Pfizer series) COVID-19 VACCINE (5 - Booster for Pfizer series) [facility] Start: 12-05-2021 COVID-19 VACCINE (4 - Booster for Pfizer series) COVID-19 VACCINE (4 - Booster for Pfizer series) [facility] Start: 10-30-2021 ADVANCE DIRECTIVE DISCUSSION ADVANCE DIRECTIVE DISCUSSION [facility] Start: 12-17-2019 Adult depression scr eening assessment DEPRESSION SCREENING [facility] Start: 08-27-2019 Administration of varicella zoster vaccine Zoster (Shingles) Vaccine (3 of 3) [facility] [employer] [facility] Start: 08-27-2019 Shingrix Vaccine (3 of 3) Smalls grix Vaccine (3 of 3) [facility] Start: 06-23-2017 Pneumococcal Vaccine : 65+ (2 - PCV) Pneumococcal Vaccine: 65+ (2 - PCV) [facility] Start: 11-03-2015 PNEUMOCOCCAL: 65+ (1 - PCV) PNEUMOCOCCAL: 65+ (1 - PCV) [facility] Start: 11-03-2015 PNEUMOCOCCAL: 65+ (2 - PCV) PNEUMOCOCCAL: 65+ (2 - PCV) [facility] Start: 2015 BONE DENSITY BONE DENSITY [facility] Start: 2015 Bone Density Screening Bone Density Screening [facility] Start: 12-01-2014 SHINGRIX VACCINE (2 of 3) SMALLS GRIX VACCINE (2 of 3) [facility] Start: 2010 RSV Vaccine (1 - 1-d ose 60+ series) RSV Vaccine (1 - 1-dose 60+ series) [facility] Start: 1995 COLOGUARD (FIT-DNA) COLOGUARD (FIT-D NA) [facility] Start: 1995 Colonoscopy COLONOSCOPY [facility] Start: 1995 COLORECTAL CANCER SCREENING COLORECTAL CANCER SCREENING [facility] Start: [address] COLONOGRAPHY [facility] Start: 1995 FECAL OCCULT BLOOD FECAL OCCULT BLOO D [facility] Start: 1995 SIGMOIDOSCOPY SIGMOIDOSCOPY [facility] Start: 1990 Mammography [facility] Start: 1969 Urine microalbumin profile DTAP,TDAP ,TD (1 - Tdap) [facility] Start: 1968 ANNUAL PCP TEAM AMPOULE EXAMINER CAROL DISEASE VISIT ANNUAL PCP TEAM CHRONIC DISEASE VISIT [facility] Start: 1968 BP CONTROLLED (<130/80) BP CONTROLLE D (<130/80) [facility] Start: 1968 HEPATITIS C SCREENING HEPATITIS C SC REENING [facility] Start: 1950 Medicare Annual Well ness Visit Medicare Annual Wellness Visit [facility] End: 06-27-2024 ECG COMPLETE ECG COMPLETE ECG Routine S/P AVR (aortic valve replacement) 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 APC (atrial premature contractions) 1 Occurrences starting 06/27/2023 until 06/27/2024 [facility] Work Phone: Comment on above: 1 Occurrences starti ng 06/27/2023 until 06/27/2024 ECG COMPLETE ECG COMPLETE ECG 06/27/2023 8:52 AM EDT [facility] Immunizations Immunization Date Immunization Notes Care Provider Karly huffman 09-26-2023 Influenza, High-dose , Quadrivalent Rachael Maryhas DO Work Phone: [facility] 08-31-2022 Influenza, High-dose , Quadrivalent Rachael Yuhas DO Work Phone: [facility] 08-31-2022 influenza virus vacc ine, unspecified formulation Andres Boyd MD Work Phone: [facility] 09-02-2021 Influenza, High-dose , Quadrivalent Rachael Yuhas DO Work Phone: [facility] 07-30-2020 influenza, injectabl e, quadrivalent, preservative free Rachael Maryhas DO Work Phone: [facility] 07-05-2020 influenza, high dose seasonal, preservative-free Rachael Yuhas DO Work Phone: [facility] 08-21-2019 influenza, high dose seasonal, preservative-free Rachael Canela DO Work Phone: [facility] 07-02-2019 zoster vaccine, live Rachael santana DO Work Phone: [facility] 07-02-2019 zoster vaccine, unspecified formulation Rachael Canela DO Work Phone: [facility] 04-29-2019 zoster vaccine recombinant Rachael Canela DO Work Phone: [facility] 10-01-2018 influenza, seasonal, injectable, preservative free Rachael Canela DO Work Phone: [facility] 07-17-2017 tetanus toxoid, redu andrea diphtheria toxoid, and acellular pertussis vaccine, adsorbed Rachael Canela DO Work Phone: [facility] 01-11-2017 influenza, seasonal, injectable Rachael Canela DO Work Phone: [facility] 06-23-2016 pneumococcal polysaccharide vaccine, 23 valent Rachael Canela DO Work Phone: [facility] 09-29-2015 seasonal influenza, intradermal, preservative free Rachael Canela DO Work Phone: [facility] 11-03-2014 pneumococcal polysaccharide vaccine, 23 valent Andres Boyd MD Work Phone: [facility] 10-06-2014 zoster vaccine, live Andres Boyd MD Work Phone: [facility] 09-24-2014 influenza, seasonal, injectable, preservative free Rachael Canela DO Work Phone: [facility] 08-04-2014 influenza, high dose seasonal, preservative-free Andres Boyd MD Work Phone: [facility] 07-30-2014 pneumococcal polysaccharide vaccine, 23 valent Rachael Canela DO Work Phone: [facility] 03-20-2001 hepatitis B vaccine, adult dosage Rachael Canela DO Work Phone: [facility] 10-19-2000 hepatitis B vaccine, adult dosage Rachael Canela DO Work Phone: [facility] 09-19-2000 hepatitis B vaccine, adult dosage Rachael Canela DO Work Phone: [facility] Payers Date Payer Category Payer Self-pay [id number] 2020 Private Health Insurance AETNA A ETNA MEDICARE SUPPLEMENT [id number] 2020-Present [phone] [address] [address] [place] [address] Indemnity [id number] 2020 Private Health Insurance [id number] 2015 Medicare MEDICARE MEDICAR E A AND B [id number] 2015-Present [phone] [address] [address] [place] [address] Medicare [id number] 2015 Medicare [id number] 1959 Medicare [id number] 1959 Private Health Insurance [facility] [id number] 1950 Unknown [id number] 1950 Unknown [id number] 1950 Unknown [id number] 1950 Unknown [id number] 1950 Unknown [id number] 1950 Unknown [id number] Private Health Insurance [facility] [id number] [facility] [id number] Unknown [id number] Social History Date Type Detail Facility Start: 11-17-2011 End: 01-30-2023 Tobacco smoking status NHIS Never smoked tobacco [facility] Work Phone: Start: 11-17-2011 End: 01-30-2023 Tobacco use and exposure Smokeless tobacco non-user [facility] Work Phone: Start: 12-27-2021 End: 11-10-2023 Alcohol intake Current drinker of alcohol (finding) [facility] Start: 11-17-2011 History SDOH Alcohol Comment social [facility] Start: 1950 Sex Assigned At Female [facility] Start: 06-17-2022 End: 06-27-2022 Exposure to SARS-CoV-2 (event) Not sure [facility] Work Phone: Start: 12-10-2020 End: 12-27-2022 Sex Assigned At Female [facility] Start: 12-10-2020 End: 12-27-2022 History of Social function [facility] Adult Depression Screening Assessment 0 [facility] Start: 12-21-2020 Gender identity Identifies as female gender (finding) [facility] Start: 12-21-2020 Sexual orientation Heterosexual (jericho hearn) [facility] Start: 09-27-2023 Alcohol Comment socially [facility] Start: 1950 Sex Assigned At Not on file [facility] Medical Equipment Procedure Code Equipment Code Equipment Origin al Text Equipment Identifier Dates Graft Cv 30cm 30 mm 2 Vlr Wvn - [id number] Start: 12-01-2014 Kenova Cv 4x.5in Thk1.65mm Ptfe - [id number] Start: 12-01-2014 Comment on above: Description: pledget s on suture Kenova Cv 6x6in Thk1.65mm Ptfe - [id number] Start: 12-01-2014 Valve Aort 23mm C-E Prm Bprth - [id number] Start: 12-01-2014 Functional Status Date Assessment Result Facility 12-09-2022 Functional Status N/A [facility] Clinical Notes 12-24-2014 to 11-10-2023 Rachael Canela, DO - 11/10/2023 9:20 AM ESTTelephone Encounter - [facility] - 11/06/2023 11:55 AM ESTTelephone Encounter - [facility] - 11/06/2023 11:55 AM EST Note Date & Type Note Facility 11-10-2023 History of Present illness Narrative IM PROGRESS NOTE Patient - Lesvia Baylee Ramos Age - 73 [facility] 1950 [id number] ASSESS[facility] & PLAN 1. Essential hypertension -goals of treatment reviewed with the patient. Her home BP log was reviewed. -all her readings are excellent -her recent BMP was reviewed and shows normal renal function and potassium -continue metoprolol XL 50 mg daily with HCTZ 12.5 mg daily 2. Hyperlipidemia, unspecified hyperlipidemia type -recent lab work reviewed with the patient. LDL 71 mg/dL. Elevated HDL. Triglycerides <100 mg/dL. - I calculated her CV risk today at 14.0% for cardiovascular event (coronary or stroke or non-fatal MA or stroke) in next 10 years. -I reviewed this with the patient. She should continue on atorvastatin 10 mg daily. 3. Sciatica of left side -symptoms are improved from previous but not gone entirely. -advised patient to avoid tizanidine because of the side effects -started on daily stretching routine. I printed the stretches and reviewed them with the patient. 4. Hypothyroidism, unspecified type -currently on levothyroxine 75 mcg daily. -all stable, no changes today 5. 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-induced thrombocytopenia) ([facility]) -no active problem at this time. Subjective CARDIOVASCULAR FOLLOW-UP This is a follow up of a pre-existing problem. Blood pressures are being checked outside the office. Frequency: sporadic Readings have been normal. BP readings outside the office range from 120 - 129 mmHg systolic and 70 - 79 mmHg diastolic. The ASCVD Risk score (Kehinde RODRIGUEZ, et al., 2019) failed to calculate for the following reasons: Cannot find a previous HDL lab Cannot find a previous total cholesterol lab Patient reports following dosing instructions Physical activity: Housework and yd work. Occasional walking. Dietary efforts show fairly healthy diet with limited sugars and fats. CV symptoms review was negative for rapid or irregular heart rate, syncope. Still has occasional rare episodes of palpitations. A review of systems was negative except for the following: Cardiovascular: Wonders whether she still needs to be taking atorvastatin Musculoskeletal: Still with some mild discomfort in her left buttock and left hamstring. Occurs when she is sleeping, but will go away if she adjusts her position. Did have a trial of tizanidine, but this made her to loopy , and so has not taken any more. When she gets up and moves, the discomfort goes away. Is a dull, aching sensation without tingling or burning. No weakness or falls due to left leg problems.. Exam BP 110/76 (BP Site: Left Arm, BP Postition: Sitting) Pulse 77 Temp 36.6 C (97.9 F) (Temporal) Ht 162.6 cm (5' 4 ) Wt 59.5 kg (131 lb 3.2 oz) SpO2 99% BMI 22.52 kg/m Physical Exam Vitals reviewed. Constitutional: General: She is not in acute distress. Appearance: Normal appearance. She is normal weight. She is not toxic-appearing. HENT: Head: Normocephalic. Right Ear: Ear canal and external ear normal. Left Ear: Ear canal and external ear normal. Nose: Nose normal. Mouth/Throat: Mouth: Mucous membranes are moist. Eyes: General: No scleral icterus. Neck: Vascular: No carotid bruit. Cardiovascular: Rate and Rhythm: Normal rate and regular rhythm. Pulses: Normal pulses. Radial pulses are 2+ on the right side and 2+ on the left side. Heart sounds: Murmur (2/6 systolic murmur 2nd right interspace and left lower sternal border) heard. No friction rub. No gallop. Pulmonary: Effort: Pulmonary effort is normal. Breath sounds: No wheezing or rales. Abdominal: Palpations: Abdomen is soft. Musculoskeletal: General: Tenderness (Left sciatic notch) present. Right lower leg: No edema. Left lower leg: No edema. Comments: Full lumbar flexion and extension. No pain with extension. No pain with internal external rotation of the left femur. Lymphadenopathy: Cervical: No cervical adenopathy. Skin: General: Skin is warm and dry. Coloration: Skin is not jaundiced. Findings: No bruising. Neurological: Mental Status: She is oriented to person, place, and time. Motor: No weakness. Coordination: Coordination normal. Deep Tendon Reflexes: Reflexes normal (Patellar 2+/4 bilateral. Achilles 2+/4 right. 1+/4 left). Psychiatric: Mood and Affect: Mood normal. Behavior: Behavior normal. Meds Current Outpatient Medications: acetaminophen (TYLENOL) 325 mg tablet, Take 2 tablets (650 mg total) by mouth., Disp: , Rfl: atorvastatin (LIPITOR) 10 mg tablet, TAKE 1 TABLET BY MOUTH EVERY DAY, Disp: 90 tablet, Rfl: 1 hydroCHLOROthiazide (MICROZIDE) 12.5 mg capsule, Take 1 capsule (12.5 mg total) by mouth daily., Disp: , Rfl: latanoprost (XALATAN) 0.005 % ophthalmic solution, Refill(s) 0, Disp: , Rfl: levothyroxine (SYNTHROID, LEVOTHROID) 75 MCG tablet, TAKE 1 TABLET BY MOUTH DAILY, Disp: 90 tablet, Rfl: 1 metoprolol succinate XL (TOPROL XL) 50 mg 24 hr tablet, Take 1 tablet (50 mg total) by mouth in the morning and 1 tablet (50 mg total) before bedtime., Disp: , Rfl: Lab Results Other Testing No results found. Rachael Canela DO., [facility] Office: [phone] documented in this encounter [facility] 11-06-2023 Miscellaneous Notes Has appt 11/10 would like short term sent in documented in this encounter [facility] 11-06-2023 Telephone encounter Note Has appt 11/10 would like short term sent in [facility] 08-28-2023 Miscellaneous Notes Last OV: 05/2023 Future appt noted: 11/2023 documented in this encounter [facility] 06-27-2023 Note HNO ID: [id number] Author: Andres Boyd MD Service: ? Author Type: Physician Type: Progress Notes Filed: 06/27/2023 9:33 AM Note Text: [facility] SE[facility] OF REGIONAL CARDIOLOGY OUTPATIENT VISIT DATE June 27, 2023 OUTPATIENT VISIT TYPE ESTABLISHED PRIMARY CARE PHYSICIAN: Rachael Canela DO [address] [place] [address] CHIEF COMPLAINT: Follow-up Last visit with me: May 2022, subsequent visit with ITZ Mae November 2022 HISTORY OF PRESENT ILLNESS: Ms. Ramos is a 72 year old female, seen in cardiology clinic today to for follow-up. Since last visit, Doing well, but feels that palpitations are a bit more often. Started taking meloxicam for shoulder pain. Now stopped. Now s/p steroid injection, no longer needing meloxicam. Continues PT at home. Diet: Overall well balanced. Otherwise she denies any recurrent chest pain, shortness of breath, lsymptoms consistent with orthopnea and/or PND. 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 Hypertension Hyperlipidemia Atrial flutter, postoperative, no documented recurrence since then, but intermittent palpitations. Moderate TR Echocardiogram 03/01/2017 - The left ventricle is normal in size. Left ventricular systolic function is normal. EF = 62 ? 5% (2D biplane) - The right ventricle is normal in size. Right ventricular systolic function is normal. - The left atrial cavity is moderately dilated. - There is moderate (2+) tricuspid valve regurgitation. - Doris-Tee prosthetic aortic valve (size #23). There is no aortic valve regurgitation. The peak gradient is 24 mmHg, the mean gradient is 12 mmHg and the dimensionless valve index is 0.55. - s/p ascending aortic repair and AVR PHYSICAL EXAMINATION: BP 140/82 Pulse 69 Wt 59 kg (130 lb) BMI 22.31 kg/m? General: No acute distress, appears comfortable HEENT: no bruits, no JVD Pulmonary/chest: CTA b/L. CVS: Normal S1 and S2, Regular rhythm, normal rate. Soft 2/6 early systolic murmur, RUSB. No JVD, trace B/L LE edema. Central and peripheral pulses 2+ B/L, no carotid or abdominal bruits. Abdomen: Soft, non-tender, non-distended. Bowel sounds normal Extremities: skin changes consistent with chronic venous insufficiency, no compressions today, trace B/L Le edema to above ankle. Neuro: AAOx4 Psych: Normal mood and affect EKG done in clinic and I personally reviewed today. Normal sinus rhythm, APCs. Septal Q waves. ECHOCardiogram today, June 27, 2022 CONCLUSIONS: - Exam indication: Aortic valve replacement, SVT - The left ventricle is normal in size. Left ventricular systolic function is normal. EF = 66 ? 5% (2D biplane) Grade I left ventricular diastolic dysfunction. - The right ventricle is normal in size. Right ventricular systolic function is normal. - Doris-Tee prosthetic aortic valve (size #23). There is no aortic valve regurgitation. The peak gradient is 17 mmHg, the mean gradient is 9 mmHg and the dimensionless valve index is 0.59. - Estimated right ventricular systolic pressure is 22 mmHg consistent with normal pulmonary artery pressures. Estimated right atrial pressure is 3 mmHg based on IVC assessment. - Exam was compared with the prior echocardiographic exam performed on 06/25/20. No significant change. 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 PAST SURGICAL HISTORY Procedure Laterality Date BUNIONECTOMY, LAPIDUS-TYPE bunion Social History Tobacco Use Smoking status: Never Smokeless tobacco: Never Substance Use Topics Alcohol use: Yes Comment: social Drug use: No FAMILY HISTORY Problem Relation Age of Onset Cataract Mother other (PVD, amputee) Mother age 63 other (Stomach Cancer) Father deeased age 60 Glaucoma Sister other (Hypothyroid) Sister 2 Sisters ALLERGIES Allergen Reactions Heparin Other: See Comments HIT Sulfa (Sulfonamide * Rash CURRENT MEDICATIONS: timolol/dorzolamide/latanop/PF (AMTVWAN-[id number]-UMLUQRP,PF,) 0.5-2-0.005 % drop Use 1 Drop in eyes every evening. hydroCHLOROthiazide (HYDRODIURIL, ESIDRIX) 12.5 mg capsule Take 1 capsule by mouth daily after breakfast. metoprolol succinate ER (TOPROL XL) 25 mg 24 hr tablet TAKE 2 TABLETS BY MOUTH IN THE MORNING then TAKE 1 TABLET BY MOUTH IN THE EVENING at (more content not included)... [facility] 06-27-2023 History of Present illness Narrative Images from the original note were not included. [facility] SECTION OF REGIONAL CARDIOLOGY OUTPATIENT VISIT DATE June 27, 2023 OUTPATIENT VISIT TYPE ESTABLISHED PRIMARY CARE PHYSICIAN: Rachael Canela DO [address] [place] [address] CHIEF COMPLAINT: Follow-up Last visit with me: May 2022, subsequent visit with ITZ Mae November 2022 HISTORY OF PRESENT ILLNESS: Ms. Ramos is a 72 year old female, seen in cardiology clinic today to for follow-up. Since last visit, Doing well, but feels that palpitations are a bit more often. Started taking meloxicam for shoulder pain. Now stopped. Now s/p steroid injection, no longer needing meloxicam. Continues PT at home. Diet: Overall well balanced. Otherwise she denies any recurrent chest pain, shortness of breath, lsymptoms consistent with orthopnea and/or PND. 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 Hypertension Hyperlipidemia Atrial flutter, postoperative, no documented recurrence since then, but intermittent palpitations. Moderate TR Echocardiogram 03/01/2017 - The left ventricle is normal in size. Left ventricular systolic function is normal. EF = 62 5% (2D biplane) - The right ventricle is normal in size. Right ventricular systolic function is normal. - The left atrial cavity is moderately dilated. - There is moderate (2+) tricuspid valve regurgitation. - Doris-Tee prosthetic aortic valve (size #23). There is no aortic valve regurgitation. The peak gradient is 24 mmHg, the mean gradient is 12 mmHg and the dimensionless valve index is 0.55. - s/p ascending aortic repair and AVR PHYSICAL EXAMINATION: BP 140/82 Pulse 69 Wt 59 kg (130 lb) BMI 22.31 kg/m General: No acute distress, appears comfortable HEENT: no bruits, no JVD Pulmonary/chest: CTA b/L. CVS: Normal S1 and S2, Regular rhythm, normal rate. Soft 2/6 early systolic murmur, RUSB. No JVD, trace B/L LE edema. Central and peripheral pulses 2+ B/L, no carotid or abdominal bruits. Abdomen: Soft, non-tender, non-distended. Bowel sounds normal Extremities: skin changes consistent with chronic venous insufficiency, no compressions today, trace B/L Le edema to above ankle. Neuro: AAOx4 Psych: Normal mood and affect EKG done in clinic and I personally reviewed today. Normal sinus rhythm, APCs. Septal Q waves. ECHOCardiogram today, June 27, 2022 CONCLUSIONS: - Exam indication: Aortic valve replacement, SVT - The left ventricle is normal in size. Left ventricular systolic function is normal. EF = 66 5% (2D biplane) Grade I left ventricular diastolic dysfunction. - The right ventricle is normal in size. Right ventricular systolic function is normal. - Doris-Tee prosthetic aortic valve (size #23). There is no aortic valve regurgitation. The peak gradient is 17 mmHg, the mean gradient is 9 mmHg and the dimensionless valve index is 0.59. - Estimated right ventricular systolic pressure is 22 mmHg consistent with normal pulmonary artery pressures. Estimated right atrial pressure is 3 mmHg based on IVC assessment. - Exam was compared with the prior echocardiographic exam performed on 06/25/20. No significant change. 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 PAST SURGICAL HISTORY Procedure Laterality Date BUNIONECTOMY, LAPIDUS-TYPE bunion Social History Tobacco Use Smoking status: Never Smokeless tobacco: Never Substance Use Topics Alcohol use: Yes Comment: social Drug use: No FAMILY HISTORY Problem Relation Age of Onset Cataract Mother other (PVD, amputee) Mother age 63 other (Stomach Cancer) Father deeased age 60 Glaucoma Sister other (Hypothyroid) Sister 2 Sisters ALLERGIES Allergen Reactions Heparin Other: See Comments HIT Sulfa (Sulfonamide * Rash CURRENT MEDICATIONS: timolol/dorzolamide/latanop/PF ([id number]-[id number]-JAQKDUO,PF,) 0.5-2-0.005 % drop Use 1 Drop in eyes every evening. hydroCHLOROthiazide (HYDRODIURIL, ESIDRIX) 12.5 mg capsule Take 1 capsule by mouth daily after breakfast. metoprolol succinate ER (TOPROL XL) 25 mg 24 hr tablet TAKE 2 TABLETS BY MOUTH IN THE MORNING then TAKE 1 TABLET BY MOUTH IN THE EVENING atorvastatin (LIPITOR) 10 mg tablet Take 10 mg by mouth once daily. cholecalciferol, Vitamin D3, (VITAMIN D3) 1,250 mcg (50,000 unit) cap capsule Take 50,000 Units by mouth one time a week. levothyroxine (SYNTHROID) 75 mcg tablet Take 1 tablet by mouth daily before breakfast. Amoxicillin 500 mg tablet Take 4 tablets by mouth 30-60 minutes before dental procedure acetaminophen (TYLENOL) 325 mg tablet Take 2 tablets by mouth every 6 hours as needed for Pain (DO NOT EXCEED 4,000 MG IN 24 HOUR PERIOD). meloxicam (MOBIC) 15 mg tablet Take 15 mg by mouth once daily. (Patient not taking: Reported on 06/27/2023) IMPRESSION/RECOMMENDATIONS: S/p AVR and aortic root repair for bicuspid aortic valve 11/2014. Doing well Echocardiogram 2021 -LVEF around 66 %, RV normal size and function. TR mild. No significant AI. Aortic valve gradients 17/9, DVI 0. 59. Pre-op cath 2014 with angiographically normal coronaries. Primary Hypertension overall well controlled Hyperlipidemia, well controlled based on labs from November 2022 Postoperative atrial flutter, no documented recurrence Palpitations, coincides with short episodes of SVt by monitoring. Currently controlled on BB, although occasional worse symptoms . EKGs with frequent APCs today. Venous insufficiency, B/L LE. Mild lower extremity swelling, currently controlled Change Toprol-XL to 50 mg twice daily Continue atorvastatin 10 mg daily. Continue magnesium supplementation at 250 mg daily Given a history of bicuspid aortic valve and ascending aortic aneurysm, indication for screening of first degree family members discussed with patient in prior visits. See has an adult son and has discussed this with him. Antibiotics-amoxicillin 2 gm 30 mins prior to dental procedures. Discussed with patient. For venous insufficiency: -Continue Compressions, 15-20 mmHg stockings, wear this early in the morning, keep it for most of the day. Skin care: Wash legs with gentle soap daily Moisturize with non-fragrant emolients like vaseline, eucerin etc. Leg elevation any time you sit Calf pump exercises. Diet and exercise plan to lose weight/maintain weight close to an ideal body weight with BMI <25. CBC, CMP today Fu 6 mo with repeat echocardiogram Andres Boyd MD documented in this encounter [facility] 05-30-2023 Note HNO ID: [id number] Author: Indigo Saldaña, DO Service: ? Author Type: Physician Type: Progress Notes Filed: 05/30/2023 10:40 AM Note Text: Lesvia Ramos is a patient of Rachael Canela. CHIEF COMPLAINT: Lesvia Ramos is a 72 year old female who presents today for new evaluation of left shoulder pain. HISTORY OF PRESENT ILLNESS: Patient is a 72-year-old female presents today for evaluation of left shoulder pain. She started noticing discomfort in left shoulder back in December of this year. She does not recall any injury or trauma. She gets achy pain in the left shoulder at nighttime particularly. Raising the arm at side and overhead is uncomfortable. Since starting meloxicam she is noticed the pain is a little better. Her primary care physician to get an MRI which suggested bursitis and a partial-thickness rotator cuff tear and some calcific tendinitis. She has not started any physical therapy yet PAIN EVALUATION 05/30/2023 0936 Pain Level: -- PATIENT IS UNABLE TO RATE HER PAIN Pain Location: Shoulder-Left Description: Aching;Sharp Duration Amount of Time: 5 Duration Units: Months Frequency: Intermittent Intervention/Comfort measure: Medication MOBIC, TYLENOL ROS: REVIEW OF SYMPTOMS: Constitutional: patient denies any recent fever or significant change in weight Gastrointestinal: patient denies any current abdominal discomfort Musculoskeletal: as noted in the HPI Neurologic: as noted in the HPI SOCIAL HISTORY: Tobacco Use: Never ALLERGIES: ALLERGIES Allergen Reactions Heparin Other: See Comments HIT Sulfa (Sulfonamide * Rash PAST MEDICAL HISTORY: PAST MEDICAL HISTORY Diagnosis Date Aortic stenosis Ascending aortic aneurysm ([facility]) Degenerative disc disease, lumbar Heart murmur Hypertension Hypothyroidism Osteopenia Stroke (cerebrum) ([facility]) 12/07/2014 SOCIAL HISTORY: Tobacco Use: Never PHYSICAL EXAMINATION: Patient has mildly positive impingement signs in the left shoulder. Negative drop arm test and negative lift off sign. She has mild discomfort with resisted left shoulder abduction and forward flexion. She has good strength with these resisted motions. Speed's Test is negative. No tenderness about the elbow, forearm, wrist, or hand. Elbow and wrist motion were not irritable. Neurovascularly intact, radial pulses 2 + and palpable. Sensation is intact to light touch in the hand. IMAGING: X-rays of the left shoulder taken the office today reveal no fractures or dislocations. There is some distal supraspinatus region calcification suggesting calcific tendinitis. Mild acromioclavicular joint osteoarthritis MRI from outside facility report was able to be reviewed. This describes some partial-thickness rotator cuff tearing along with some calcific tendinitis and significant subacromial bursitis. CLINICAL IMPRESSION / ASSESSMENT: Left shoulder impingement and partial-thickness rotator cuff tear PROCEDURES: Large Joint Arthro/Inj: L subacromial bursa Informed Consent Consent Obtained: Verbal [place] Protocol A moment to CARE was completed. SIGN IN Personnel directly involved with the procedure wore the appropriate PPE. Special Equipment: N/A Patient/Surrogate Stated/Verified: Patient name, Date of , Relevant allergies and Intended procedure TIME OUT Intended patient and procedure match the source document(s). Relevant labs, photos, and/or imaging studies have been reviewed. Correct side/site marked and visible. Medications required for procedure verified. Fire risk assessed and interventions discussed. No implant(s) inserted. 05/30/2023 10:34 AM The procedure site was prepped in the usual sterile fashion. Site: L subacromial bursa Medications: 40 mg triamcinolone acetonide 40 mg/mL Anesthetics: 4 mL lidocaine (PF) 10 mg/mL (1 %) Outcome: Tolerated well, no immediate complications Post-injection instructions were reviewed with the patient and the patient voiced understanding of these instructions. SIGN OUT All instruments, equipment, possible retained foreign bodies accounted for. RECOMMENDATION / PLAN: I discussed treatment options with the patient at length. Patient is interested in a cortisone injection for the left shoulder. She was given this injection today under pleat sterile technique without any complications as outlined above. I also recommend she do some physical therapy for the left shoulder. She can follow-up with me on an as-needed basis. Verbal health education was given to patient. Patient verbalizes understanding and agrees with the treatment plan as detailed above. Indigo Saldaña DO [facility] 05-30-2023 Note HNO ID: [id number] Author: Izabella Brito RT(R) Service: Radiology Author Type: Technologist Type: Progress Notes Filed: 05/30/2023 9:04 AM Note Text: Radiology Service Progress Note PATIENT NAME: Lesvia Ramos DATE OF SERVICE: May 30, 2023 TIME: 9:01 AM PATIENT IDENTITY VERIFICATION COMPLETED USING TWO (2) IDENTIFIERS: Name and Date of confirmed by patient verbally. FALL SCREENING: Has the patient had 2 falls in the last year or 1 fall with injury or currently using an Ambulatory Assistive Device (Walker, Cane, Wheelchair, Crutches, etc.)? Yes, Patient High Risk for Falls What interventions were put in place to prevent falls during this visit? Instructed Patient to Call for Help if Needed, Offered Assistance with Transfers/Clothing, Instructed Patient to Remain Seated (Not on Exam Table) Until Exam, and Increased Observations by Caregivers PATIENT GENDER DATA: Female. status: : No status: NO. PATIENT RELEVANT IMPLANT DATA REVIEWED: Not Applicable RADIOLOGY DEPARTMENT: General X-ray: Exam(s) Completed: Upper Extremity X-Ray(s): Shoulder, AP / TRUE AP / AXILLARY / SUPRA OUTLET left PERIPHERAL IV DATA: Not applicable SIGNED BY: RT Rodrigo(R) May 30, 2023 9:01 AM [facility] 05-30-2023 History of Present illness Narrative Associated Order(s): Large Joint Arthro/Inj: L subacromial bursa Post-Procedure Diagnose(s): Impingement syndrome of left shoulder Images from the original note were not included. Lesvia Ramos is a patient of Rachael Canela. CHIEF COMPLAINT: Lesvia Ramos is a 72 year old female who presents today for new evaluation of left shoulder pain. HISTORY OF PRESENT ILLNESS: Patient is a 72-year-old female presents today for evaluation of left shoulder pain. She started noticing discomfort in left shoulder back in December of this year. She does not recall any injury or trauma. She gets achy pain in the left shoulder at nighttime particularly. Raising the arm at side and overhead is uncomfortable. Since starting meloxicam she is noticed the pain is a little better. Her primary care physician to get an MRI which suggested bursitis and a partial-thickness rotator cuff tear and some calcific tendinitis. She has not started any physical therapy yet PAIN EVALUATION 05/30/2023 0936 Pain Level: -- PATIENT IS UNABLE TO RATE HER PAIN Pain Location: Shoulder-Left Description: Aching;Sharp Duration Amount of Time: 5 Duration Units: Months Frequency: Intermittent Intervention/Comfort measure: Medication MOBIC, TYLENOL ROS: REVIEW OF SYMPTOMS: Constitutional: patient denies any recent fever or significant change in weight Gastrointestinal: patient denies any current abdominal discomfort Musculoskeletal: as noted in the HPI Neurologic: as noted in the HPI SOCIAL HISTORY: Tobacco Use: Never ALLERGIES: ALLERGIES Allergen Reactions Heparin Other: See Comments HIT Sulfa (Sulfonamide * Rash PAST MEDICAL HISTORY: PAST MEDICAL HISTORY Diagnosis Date Aortic stenosis Ascending aortic aneurysm ([facility]) Degenerative disc disease, lumbar Heart murmur Hypertension Hypothyroidism Osteopenia Stroke (cerebrum) ([facility]) 12/07/2014 SOCIAL HISTORY: Tobacco Use: Never PHYSICAL EXAMINATION: Patient has mildly positive impingement signs in the left shoulder. Negative drop arm test and negative lift off sign. She has mild discomfort with resisted left shoulder abduction and forward flexion. She has good strength with these resisted motions. Speed's Test is negative. No tenderness about the elbow, forearm, wrist, or hand. Elbow and wrist motion were not irritable. Neurovascularly intact, radial pulses 2 + and palpable. Sensation is intact to light touch in the hand. IMAGING: X-rays of the left shoulder taken the office today reveal no fractures or dislocations. There is some distal supraspinatus region calcification suggesting calcific tendinitis. Mild acromioclavicular joint osteoarthritis MRI from outside facility report was able to be reviewed. This describes some partial-thickness rotator cuff tearing along with some calcific tendinitis and significant subacromial bursitis. CLINICAL IMPRESSION / ASSESSMENT: Left shoulder impingement and partial-thickness rotator cuff tear PROCEDURES: Large Joint Arthro/Inj: L subacromial bursa Informed Consent Consent Obtained: Verbal [place] Protocol A moment to CARE was completed. SIGN IN Personnel directly involved with the procedure wore the appropriate PPE. Special Equipment: N/A Patient/Surrogate Stated/Verified: Patient name, Date of , Relevant allergies and Intended procedure TIME OUT Intended patient and procedure match the source document(s). Relevant labs, photos, and/or imaging studies have been reviewed. Correct side/site marked and visible. Medications required for procedure verified. Fire risk assessed and interventions discussed. No implant(s) inserted. 05/30/2023 10:34 AM The procedure site was prepped in the usual sterile fashion. Site: L subacromial bursa Medications: 40 mg triamcinolone acetonide 40 mg/mL Anesthetics: 4 mL lidocaine (PF) 10 mg/mL (1 %) Outcome: Tolerated well, no immediate complications Post-injection instructions were reviewed with the patient and the patient voiced understanding of these instructions. SIGN OUT All instruments, equipment, possible retained foreign bodies accounted for. RECOMMENDATION / PLAN: I discussed treatment options with the patient at length. Patient is interested in a cortisone injection for the left shoulder. She was given this injection today under pleat sterile technique without any complications as outlined above. I also recommend she do some physical therapy for the left shoulder. She can follow-up with me on an as-needed basis. Verbal health education was given to patient. Patient verbalizes understanding and agrees with the treatment plan as detailed above. Indigo Saldaña DO documented in this encounter [facility] 05-30-2023 History of Present illness Narrative Radiology Service Progress Note PATIENT NAME: Lesvia Ramos DATE OF SERVICE: May 30, 2023 TIME: 9:01 AM PATIENT IDENTITY VERIFICATION COMPLETED USING TWO (2) IDENTIFIERS: Name and Date of confirmed by patient verbally. FALL SCREENING: Has the patient had 2 falls in the last year or 1 fall with injury or currently using an Ambulatory Assistive Device (Walker, Cane, Wheelchair, Crutches, etc.)? Yes, Patient High Risk for Falls What interventions were put in place to prevent falls during this visit? Instructed Patient to Call for Help if Needed, Offered Assistance with Transfers/Clothing, Instructed Patient to Remain Seated (Not on Exam Table) Until Exam, and Increased Observations by Caregivers PATIENT GENDER DATA: Female. status: : No status: NO. PATIENT RELEVANT IMPLANT DATA REVIEWED: Not Applicable RADIOLOGY DEPARTMENT: General X-ray: Exam(s) Completed: Upper Extremity X-Ray(s): Shoulder, AP / TRUE AP / AXILLARY / SUPRA OUTLET left PERIPHERAL IV DATA: Not applicable SIGNED BY: RT Rodrigo(R) May 30, 2023 9:01 AM documented in this encounter [facility] 05-03-2023 Miscellaneous Notes Risk Rating C: Monitor therapy Summary Nonsteroidal Anti-Inflammatory Agents may diminish the antihypertensive effect of BP meds Beta-Blockers--- take as little of the NSAID as possible. Monitor BP documented in this encounter [facility] 12-27-2022 Note HNO ID: [id number] Author: Nitza Mae APRN.JESSIE Service: ? Author Type: Nurse Practitioner Type: Progress Notes Filed: 01/13/2023 6:10 PM Note Text: [facility] [employer] [facility] Department of Cardiovascular Medicine SECTION OF REGIONAL CARDIOLOGY December 27, 2022 OUTPATIENT VISIT TYPE ESTABLISHED PRIMARY CARE PHYSICIAN: Rachael Canela DO SUBJECTIVE: CHIEF COMPLAINT: Patient presents with: CARD Follow Up 6 Month HISTORY OF PRESENT ILLNESS: Lesvia Ramos is a 72 year old female who presents for CVM follow up. Last seen in department of cardiology 06/27/[address] Andres Boyd. At that time, patient reporting doing well, very rare palpitations. She reported she occasionally uses an extra dose of metoprolol to help with symptoms. She reported some mild bilateral ankle swelling at the end of the day mostly under control with compressions and leg elevation. Today, patient denies chest pain, shortness of breath, orthopnea, cough, significant edema/weight gain, PND, lightheadedness, syncope or other significant cardiac symptoms. Rare palpitations. Last episode 09/2022 and described as brief heart racing that can be accompanied by chest tightness. No recent episodes of heart racing in this new year. Does not drink much caffeine but admits to not drinking much water. Has a glass of wine at supper on occasional. Has been compliant with wearing compressions over the winter. Has helped with the swelling Has noted some places where her hair does not grow; more noticeable in the past year. Has fine hair. Admits has been getting perms to see if hair would improve. She has not started the Mag-ox. 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 Hypertension Hyperlipidemia Atrial flutter, postoperative, no documented recurrence since then, but intermittent palpitations. Moderate TR Echocardiogram 03/01/2017 - The left ventricle is normal in size. Left ventricular systolic function is normal. EF = 62 ? 5% (2D biplane) - The right ventricle is normal in size. Right ventricular systolic function is normal. - The left atrial cavity is moderately dilated. - There is moderate (2+) tricuspid valve regurgitation. - Doris-Tee prosthetic aortic valve (size #23). There is no aortic valve regurgitation. The peak gradient is 24 mmHg, the mean gradient is 12 mmHg and the dimensionless valve index is 0.55. - s/p ascending aortic repair and AVR REVIEW OF SYSTEMS: Detailed 14 systems reviewed. Pertinent information, positive and/or negative or non-contributory with the exception of pertinent positives described in HPI. Past Medical, Family and Social history reviewed; unchanged from prior. ASSESSMENT/PLAN: Lesvia Ramos was seen today for 6 months CVM follow up visit. Diagnoses and all orders for this visit: Encounter Diagnosis ICD-10-CM 1. S/P AVR (aortic valve replacement) and aortoplasty Z95.2 hydroCHLOROthiazide (HYDRODIURIL, ESIDRIX) 12.5 mg capsule 2. SVT (supraventricular tachycardia) (HCC) I47.1 3. APC (atrial premature contractions) I49.1 4. Primary hypertension I10 hydroCHLOROthiazide (HYDRODIURIL, ESIDRIX) 12.5 mg capsule 5. Patchy loss of hair L65.9 MAGNESIUM BLD BASIC METABOLIC PNL TSH BLD CONSULT TO DERMATOLOGY 6. Mixed hyperlipidemia E78.2 LIPID PANEL, NONFASTING 7. Typical atrial flutter (HCC) I48.3 -S/p AVR and aortic root repair for bicuspid aortic valve 11/2014. Doing well with no specific symptoms. Echocardiogram 829 showed: LVEF around 66 %, RV normal size and function. TR mild. No significant AI. Aortic valve gradients 17/9, DVI 0. 59. Pre-op cath 2014 with angiographically normal coronaries. -Postoperative atrial flutter. No documented recurrence. SVT, PVCs. Rare palpitations. Continue metoprolol succinate 50 mg daily in the a.m. and metoprolol to succinate 25 mg in the p.m. Can take an additional Toprol XL 25 mg daily as needed for worsening palpitations. Patient previously declined to increase the daily dose. -Mixed hyperlipidemia. LDL goal less than 70 mg/dL. Continue atorvastatin 10 mg daily. Monitor for any myalgias. We will update lipid panel. -Venous insufficiency to bilateral lower extremities. Continue compressions and leg elevations. -BP controlled. Continue hydrochlorothiazide 12.5 mg daily. -Continue lifestyle modifications: Reduce sodium intake, regular aerobic exercise, eating heart healthy/Plant-based/whole foods diet and maintaining ideal body weight with BMI < 25. -She reported some patchy h (more content not included)... [facility] 12-27-2022 History of Present illness Narrative Images from the original note were not included. [facility] [employer] [facility] Department of Cardiovascular Medicine SECTION OF REGIONAL CARDIOLOGY December 27, 2022 OUTPATIENT VISIT TYPE ESTABLISHED PRIMARY CARE PHYSICIAN: Rachael Canela DO SUBJECTIVE: CHIEF COMPLAINT: Patient presents with: CARD Follow Up 6 Month HISTORY OF PRESENT ILLNESS: Lesvia Ramos is a 72 year old female who presents for CVM follow up. Last seen in department of cardiology 06/27/[address] Andres Boyd. At that time, patient reporting doing well, very rare palpitations. She reported she occasionally uses an extra dose of metoprolol to help with symptoms. She reported some mild bilateral ankle swelling at the end of the day mostly under control with compressions and leg elevation. Today, patient denies chest pain, shortness of breath, orthopnea, cough, significant edema/weight gain, PND, lightheadedness, syncope or other significant cardiac symptoms. Rare palpitations. Last episode 09/2022 and described as brief heart racing that can be accompanied by chest tightness. No recent episodes of heart racing in this new year. Does not drink much caffeine but admits to not drinking much water. Has a glass of wine at supper on occasional. Has been compliant with wearing compressions over the winter. Has helped with the swelling Has noted some places where her hair does not grow; more noticeable in the past year. Has fine hair. Admits has been getting perms to see if hair would improve. She has not started the Mag-ox. 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 Hypertension Hyperlipidemia Atrial flutter, postoperative, no documented recurrence since then, but intermittent palpitations. Moderate TR Echocardiogram 03/01/2017 - The left ventricle is normal in size. Left ventricular systolic function is normal. EF = 62 5% (2D biplane) - The right ventricle is normal in size. Right ventricular systolic function is normal. - The left atrial cavity is moderately dilated. - There is moderate (2+) tricuspid valve regurgitation. - Doris-Tee prosthetic aortic valve (size #23). There is no aortic valve regurgitation. The peak gradient is 24 mmHg, the mean gradient is 12 mmHg and the dimensionless valve index is 0.55. - s/p ascending aortic repair and AVR REVIEW OF SYSTEMS: Detailed 14 systems reviewed. Pertinent information, positive and/or negative or non-contributory with the exception of pertinent positives described in HPI. Past Medical, Family and Social history reviewed; unchanged from prior. ASSESSMENT/PLAN: Lesvia Ramos was seen today for 6 months CVM follow up visit. Diagnoses and all orders for this visit: Encounter Diagnosis ICD-10-CM 1. S/P AVR (aortic valve replacement) and aortoplasty Z95.2 hydroCHLOROthiazide (HYDRODIURIL, ESIDRIX) 12.5 mg capsule 2. SVT (supraventricular tachycardia) (HCC) I47.1 3. APC (atrial premature contractions) I49.1 4. Primary hypertension I10 hydroCHLOROthiazide (HYDRODIURIL, ESIDRIX) 12.5 mg capsule 5. Patchy loss of hair L65.9 MAGNESIUM BLD BASIC METABOLIC PNL TSH BLD CONSULT TO DERMATOLOGY 6. Mixed hyperlipidemia E78.2 LIPID PANEL, NONFASTING 7. Typical atrial flutter (HCC) I48.3 -S/p AVR and aortic root repair for bicuspid aortic valve 11/2014. Doing well with no specific symptoms. Echocardiogram 829 showed: LVEF around 66 %, RV normal size and function. TR mild. No significant AI. Aortic valve gradients 17/9, DVI 0. 59. Pre-op cath 2014 with angiographically normal coronaries. -Postoperative atrial flutter. No documented recurrence. SVT, PVCs. Rare palpitations. Continue metoprolol succinate 50 mg daily in the a.m. and metoprolol to succinate 25 mg in the p.m. Can take an additional Toprol XL 25 mg daily as needed for worsening palpitations. Patient previously declined to increase the daily dose. -Mixed hyperlipidemia. LDL goal less than 70 mg/dL. Continue atorvastatin 10 mg daily. Monitor for any myalgias. We will update lipid panel. -Venous insufficiency to bilateral lower extremities. Continue compressions and leg elevations. -BP controlled. Continue hydrochlorothiazide 12.5 mg daily. -Continue lifestyle modifications: Reduce sodium intake, regular aerobic exercise, eating heart healthy/Plant-based/whole foods diet and maintaining ideal body weight with BMI < 25. -She reported some patchy hair loss and will refer to dermatology. We will also check updated labs. Follow up: -Patient will follow-up in 6 months with communication in between if symptoms or changes occur. -Patient should continue to follow with their primary physician for routine health care maintenance and age appropriate risk factor assessment, modification and screenings. PHYSICAL EXAMINATION: BP 126/84 Pulse (!) 54 Wt 60.8 kg (134 lb) BMI 23.00 kg/m General appearance: in no acute distress, alert. Eyes: Anicteric sclera. EOMI Neck: No carotid bruits. No JVD Lungs: Normal respiratory effort. No wheezing, crackles, or rhonchi. Heart: Regular rhythm with extrasystoles. Regular rate. 2/6 systolic murmur. Trace B/L ankle edema Abdomen: Abdomen soft, non-tender. No hepatomegaly or bruits. Vascular: Brachial, DP, and PT pulses +2. No renal, ABD aortic, or femoral bruit. Neuro: No gross focal deficits Psych: mood appropriate Last 4 Encounter Wt Readings: Date: Wt: 12/27/2022 60.8 kg (134 lb) 06/27/2022 59.4 kg (131 lb) 12/27/2021 64.9 kg (143 lb) 06/29/2021 63 kg (139 lb) Last 4 Encounter BP Readings: Date: BP: 12/27/2022 126/84 06/27/2022 130/82 12/27/2021 124/80 06/29/2021 124/60 Last 4 Encounter Pulse Readings: Date: Pulse: 12/27/2022 54 06/27/2022 63 12/27/2021 72 06/29/2021 57 CARDIOVASCULAR MEDICINE TESTING: I have personally reviewed laboratory results and echocardiogram report [employer] Potassium (mmol/L) Date Value 06/29/2021 5.2 Sodium (mmol/L) Date Value 06/29/2021 139 Magnesium (mg/dL) Date Value 12/11/2014 2.5 Creatinine (mg/dL) Date Value 06/29/2021 0.81 BUN (mg/dL) Date Value 06/29/2021 18 Glucose (mg/dL) Date Value 06/29/2021 91 PT INR (no units) Date Value 01/06/2015 2.2 TSH (uU/mL) Date Value 06/29/2021 0.514 NT Pro BNP (pg/mL) Date Value 06/29/2021 512 Total Cholesterol, Nonfasting Date Value Ref Range Status 06/29/2021 146 <200 mg/dL Final Comment: <200 mg/dL, Desirable 200-239 mg/dL, Borderline high >239 mg/dL, High HDL Cholesterol, Nonfasting Date Value Ref Range Status 06/29/2021 73 >39 mg/dL Final Comment: 40-59 mg/dL, Acceptable >59 mg/dL, High: Negative risk factor for coronary heart disease <40 mg/dL, Low: Positive risk factor for coronary heart disease LDL Cholesterol, Nonfasting Date Value Ref Range Status 06/29/2021 62 <100 mg/dL Final Comment: <100 mg/dL, Optimal 100-129 mg/dL, Near optimal/above optimal 130-159 mg/dL, Borderline high 160-189 mg/dL, High >189 mg/dL, Very high Secondary prevention optimal LDL Cholesterol levels are recommended to be < 70 mg/dL Triglycerides, Nonfasting Date Value Ref Range Status 06/29/2021 57 <150 mg/dL Final Comment: <150 mg/dL, Normal 150-199 mg/dL, Borderline high 200-499 mg/dL, High >499 mg/dL, Very high MEDICATIONS Current Outpatient Medications on File Prior to Visit Medication Sig timolol/dorzolamide/latanop/PF (OGELSIN-UTGDQEHIAG-ZFNHIZI,PF,) 0.5-2-0.005 % drop Use 1 Drop in eyes every evening. metoprolol succinate ER (TOPROL XL) 25 mg 24 hr tablet TAKE 2 TABLETS BY MOUTH IN THE MORNING then TAKE 1 TABLET BY MOUTH IN THE EVENING atorvastatin (LIPITOR) 10 mg tablet Take 10 mg by mouth once daily. hydroCHLOROthiazide (HYDRODIURIL, ESIDRIX) 12.5 mg capsule Take 1 capsule by mouth daily after breakfast. cholecalciferol, Vitamin D3, (VITAMIN D3) 1,250 mcg (50,000 unit) cap capsule Take 50,000 Units by mouth one time a week. levothyroxine (SYNTHROID) 75 mcg tablet Take 1 tablet by mouth daily before breakfast. Amoxicillin 500 mg tablet Take 4 tablets by mouth 30-60 minutes before dental procedure acetaminophen (TYLENOL) 325 mg tablet Take 2 tablets by mouth every 6 hours as needed for Pain (DO NOT EXCEED 4,000 MG IN 24 HOUR PERIOD). Current Facility-Administered Medications on File Prior to Visit Medication perflutren lipid microspheres 1.3 mL in NaCl (PF) 0.9% 10 mL injection (DEFINITY) sodium chloride 0.9 % (flush) 10 mL (BD POSIFLUSH) ALLERGIES Allergen Reactions Heparin Other: See Comments HIT Sulfa (Sulfonamide * Rash ACTIVE PROBLEM LIST Summary - 12/02/2014 (Very Severe priority) Comment: Indication for hospital admission: discharged from [facility] on 12/06 after having aortic valve replacement and repair of ascending aorta on 12/01/14. She was staying with family during the recovery period and overall was doing well. READMIT: Transferred from [facility] 12/07/14 after presenting with acute onset confusion. Transferred to ICU 12 09 2014 with severe thrombocytopenia with high risk for bleeding. Surgery: 12/01/2014 AV replacement #23 CE & ascending aorta replacement; PMH/PSH: HTN; hyperlipidemia; DJD; hypothyroid; PONV, severe , BAV, Afib POD 11 LVEF: Normal RVF: Normal Overall Course: uncomplicated Assessment/plan -HIT +. discussed with Dr. Black and . INR 2.2 DC to home today. VM arranged coumadin management with PCP Dr. Barron. f/u with Dr. Roach appt scheduled. -Left arm DVT. cont coumadin No f/u ultrasound needed per VM -h/o postop Afib. No recurrence. Continue toprol. -HTN. controlled Dispo: DC today. . Lives in [place], [place]. Coumadin to be managed by [facility]IT (+) - 12/09/2014 (A priority) Comment: History: POHS as below 2/2/15 after prior heparin exposure (heart cath). R/A for transient global amnesia and found to be thrombocytopenic. The pattern of thrombocytopenia is typical for HIT, hep-PF4 antibody was unequivocally positive, hence the Dx of HIT was made. IV Ig daily x3 days (end date of 12/28). premedicated with benadryl and solucortef Assessment: stable Plan: -INR therapeutic DC [place]ival per okay to DC to home. f/u with DR. Roach appt scheduled. Dr. Barron to manage coumadin locally. 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 Plan: con't coumadin f/u with Dr. Roach No f/u ultrasound needed per Anemia - 12/27/2014 (C priority) Comment: History: preop H/H 16 and 46 Assessment: No s/sx of bleeding. H&H trending up Plan: Continue Fe BID x 1 month f/u labs with PCP Atrial Flutter (Hcc) - 12/12/2014 (D priority) Comment: History: post op Aflutter Assessment: maintaining sinus. Plan: continue toprol XL. coumadin f/u with [facility] Dr. Roach Hypothyroidism - 12/04/2014 (D priority) Comment: History: TSH normal on synthroid pre-op. Assessment: stable. Plan: con't synthroid. HTN - 12/02/2014 (D priority) Comment: History: Pre-op on HCTZ/triamterene. Assessment: stable, except higher BP as being checked in leg, d/t DVT/PICC Plan: Continue norvasc, HCTZ/triamterene, toprol and ACEi. rec monitor BP at home and take to f/u appts. Hyperlipidemia - 12/02/2014 (D priority) Comment: History: Pre-op LDL 66 on Zocor. Assessment: controlled. 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 Vertigo of Central Origin - 03/20/2015 Peripheral Vertigo, Unspecified - 03/20/2015 Anticoagulation Monitoring, Special Range - 01/03/2015 Anticoagulation Management Encounter - 12/18/2014 Thoracic Facet Syndrome - 11/17/2011 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 Updates have been made where appropriate/noted and reflect current exam and medical decision making from date of this visit. This note was partially generated with [employer] voice recognition software and may contain errors, including spelling, grammar, syntax and misrecognition of what was dictated, that may not be fully corrected. I appreciate the opportunity to participate in this patient's care. Please do not hesitate to call my office if you have any questions. CONTACT INFORMATION: Nitza Mae APRN.JESSIE Adult Nurse Practitioner Jessie Wade Department of Cardiovascular Medicine [facility] Heart, Vascular, Thoracic [employer] [facility] Cardiology Consult Team documented in this encounter [facility] 12-19-2022 Miscellaneous Notes Last appt: 06/27/2022 Next appt: 12/27/2022 Requested Prescriptions Pending Prescriptions Disp Refills metoprolol succinate ER (TOPROL XL) 25 mg 24 hr tablet 270 tablet 3 Sig: TAKE 2 TABLETS BY MOUTH IN THE MORNING then TAKE 1 TABLET BY MOUTH IN THE EVENING documented in this encounter [facility] 12-09-2022 Hospital Discharge instructions Patient Education 12/09/2022 09:26:33 Urinary Incontinence Urinary Incontinence Urinary incontinence refers to a condition in which a person is unable to control where and when to pass urine. A person with this condition will urinate when he or she does not mean to (involuntarily). What are the causes? This condition may be caused by: Medicines. Infections. Constipation. Overactive bladder muscles. Weak bladder muscles. Weak pelvic floor muscles. These muscles provide support for the bladder, intestine, and, in women, the uterus. Enlarged prostate in men. The prostate is a gland near the bladder. When it gets too big, it can pinch the urethra. With the urethra blocked, the bladder can weaken and lose the ability to empty properly. Surgery. Emotional factors, such as anxiety, stress, or post-traumatic stress disorder (PTSD). Pelvic organ prolapse. This happens in women when organs shift out of place and into the vagina. This shift can prevent the bladder and urethra from working properly. What increases the risk? The following factors may make you more likely to develop this condition: Older age. Obesity and physical inactivity. and childbirth. Menopause. Diseases that affect the nerves or spinal cord (neurological diseases). Long-term (chronic) coughing. This can increase pressure on the bladder and pelvic floor muscles. What are the signs or symptoms? Symptoms may vary depending on the type of urinary incontinence you have. They include: A sudden urge to urinate, but passing urine involuntarily before you can get to a bathroom (urge incontinence). Suddenly passing urine with any activity that forces urine to pass, such as coughing, laughing, exercise, or sneezing (stress incontinence). Needing to urinate often, but urinating only a small amount, or constantly dribbling urine (overflow incontinence). Urinating because you cannot get to the bathroom in time due to a physical disability, such as arthritis or injury, or communication and thinking problems, such as Alzheimer disease (functional incontinence). How is this diagnosed? This condition may be diagnosed based on: Your medical history. A physical exam. Tests, such as: ?Urine tests. ?X-rays of your kidney and bladder. ?Ultrasound. ?CT scan. ?Cystoscopy. In this procedure, a health care provider inserts a tube with a light and camera (cystoscope) through the urethra and into the bladder in order to check for problems. ?Urodynamic testing. These tests assess how well the bladder, urethra, and sphincter can store and release urine. There are different types of urodynamic tests, and they vary depending on what the test is measuring. To help diagnose your condition, your health care provider may recommend that you keep a log of when you urinate and how much you urinate. How is this treated? Treatment for this condition depends on the type of incontinence that you have and its cause. Treatment may include: Lifestyle changes, such as: ?Quitting smoking. ?Maintaining a healthy weight. ?Staying active. Try to get 150 minutes of moderate-intensity exercise every week. Ask your health care provider which activities are safe for you. ?Eating a healthy diet. ?Avoid high-fat foods, like fried foods. ?Avoid refined carbohydrates like white bread and white rice. ?Limit how much alcohol and caffeine you drink. ?Increase your fiber intake. Foods such as fresh fruits, vegetables, beans, and whole grains are healthy sources of fiber. Pelvic floor muscle exercises. Bladder training, such as lengthening the amount of time between bathroom breaks, or using the bathroom at regular intervals. Using techniques to suppress bladder urges. This can include distraction techniques or controlled breathing exercises. Medicines to relax the bladder muscles and prevent bladder spasms. Medicines to help slow or prevent the growth of a man's prostate. Botox injections. These can help relax the bladder muscles. Using pulses of electricity to help change bladder reflexes (electrical nerve stimulation). For women, using a medical radiation dosimetrist to prevent urine leaks. This is a small, tampon-like, disposable device that is inserted into the urethra. Injecting collagen or carbon beads (bulking agents) into the urinary sphincter. These can help thicken tissue and close the bladder opening. Surgery. Follow these instructions at home: Lifestyle Limit alcohol and caffeine. These can fill your bladder quickly and irritate it. Keep yourself clean to help prevent odors and skin damage. Ask your doctor about special skin creams and cleansers that can protect the skin from urine. Consider wearing pads or adult diapers. Make sure to change them regularly, and always change them right after experiencing incontinence. General instructions Take [id number] and prescription medicines only as told by your health care provider. Use the bathroom about every 3 4 hours, even if you do not feel the need to urinate. Try to empty your bladder completely every time. After urinating, wait a minute. Then try to urinate again. Make sure you are in a relaxed position while urinating. If your incontinence is caused by nerve problems, keep a log of the medicines you take and the times you go to the bathroom. Keep all follow-up visits as told by your health care provider. This is important. Contact a health care provider if: You have pain that gets worse. Your incontinence gets worse. Get help right away if: You have a fever or chills. You are unable to urinate. You have redness in your groin area or down your legs. Summary Urinary incontinence refers to a condition in which a person is unable to control where and when to pass urine. This condition may be caused by medicines, infection, weak bladder muscles, weak pelvic floor muscles, enlargement of the prostate (in men), or surgery. The following factors increase your risk for developing this condition: older age, obesity, and childbirth, menopause, neurological diseases, and chronic coughing. There are several types of urinary incontinence. They include urge incontinence, stress incontinence, overflow incontinence, and functional incontinence. This condition is usually treated first with lifestyle and behavioral changes, such as quitting smoking, eating a healthier diet, and doing regular pelvic floor exercises. Other treatment options include medicines, bulking agents, medical devices, electrical nerve stimulation, or surgery. This information is not intended to replace advice given to you by your health care provider. Make sure you discuss any questions you have with your health care provider. Document Released: 11/23/2005 Document Revised: 10/26/2018 Document Reviewed: 01/25/2018 [employer] Patient Education 2020 [employer]. Follow Up Care 12/08/2021 14:35:27 With:IRMA RECINOS, India Yang, URL Address: [address] [place] [address]- When: Unknown [facility] 06-02-2022 Miscellaneous Notes The following approved medication requests have been transmitted electronically. Signed Prescriptions Disp Refills hydroCHLOROthiazide (HYDRODIURIL, ESIDRIX) 12.5 mg capsule 30 capsule 5 Sig: Take 1 capsule by mouth daily after breakfast. ALIYAH: No Authorizing Provider: ANDRES BOYD Ordering User: NITZA MAE APRN.CNP Last office visit 12/27/21 Future appt scheduled 06/27/22 Last CMP 11/09/21 scanned in under 01/10/22 documented in this encounter [facility] 12-24-2020 History of Past i llness Narrative Problem Noted Date Diagnosed Date Resolved Date Intercostal pain 12/24/2020 06/27/2023 Malnutrition of moderate degree 12/24/2014 06/29/2021 Overview: History: 2nd to prolonged illness/hospitalization Assessment: nutrition evaluated and mod degree malnutrition Plan: -encourage oral intake at home, con't supplements at home if needed. Atrial flutter 12/12/2014 06/27/2023 Overview: History: post op Aflutter Assessment: maintaining sinus. Plan: continue toprol XL. coumadin f/u with [facility] Dr. Roach Change in mental status 12/09/201412/01 Overview: History: 12/07/14 pt developed confusion at home, Called 911 transferred back to [facility]. Another brief episode of amnesia in the morning of 12/11. per neurology She does have two punctate lesions on MRI that can be infarcts, but I think these are asymptomatic. EEG does not show any seizure activity or epileptogenic potential. The episode was repeated briefly on 12/11 in AM. Assessment: No additional episodes Plan: -Continue Bivalirudin-LOW THRESHOLD FOR REPEATING CT SCAN OF BRAIN IF DEVELOPS CONFUSION/HEADACHE. Follow neurologic status closely Ischemic stroke diagnosed du janay current admission 12/08/2014 12/09/2014 Stroke (cerebrum) 12/07/2014 12/09/2014 Nausea 12/04/2014 12/06/2014 Overview: resolved con't reglan for today then DC Stress hyperglycemia 12/03/2014 015 Overview: History: no hx of DM Assessment: stress hyperglycemia 2nd to [facility], no coverage x 24 hours Plan: -DC accuchecks and SSI. Acute postoperative pain 12/02/201401/2015 Overview: 12/02/2014 Analgesia plan - scheduled acetaminophen. 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 central communications specialist Thrombocytopenia 12/02/2014 12/03/2014 Overview: 12/02/2014 Expected mild postop decrease in plt ct. No bleeding. Monitor Atelectasis/volume overload 12/02/2014 12/16/2014 Overview: History: 2nd to [facility] Assessment: CXR today, 12/03 with small bilateral pleural effusions & atelectasis. wt up from admission Plan: -encouraged to continue at home ez pep, coughing, deep breathing and ambulation. -DC on tapering dose of lasix Acute blood loss anemia 12/01/2014 02/0 01/2015 Overview: 12/02/2014 Hgb 8.4 on POD #1. NO bleeding. Hemodynamics adequate without s/s endorgan malperfusion. Monitor Pre-op testing 11/19/2014 12/02/2014 Overview: Images from the original note were not included. [facility] Surgeon: Jose Enrique Black M.D. Informed Consent Completed: Yes STS Score: unsupported CAD: No Is intended procedure a CABG: No - is a beta edith ordered? No - reason: not indicated H & P completed: Yes PA/LAT: Completed CT: Completed MRI: N/A LE US: N/A Cath: Yes - reviewed: Yes Echo:Completed EKG: Completed EF %: 67 PI's: N/A Carotid: N/A Mapping: N/A Dental: Cleared PFT's: Completed No results found for this basename: WBC,HB,HCT,PLT,INR,CREAT in the last 72 hours UA: Normal HCG:N/A ABO/ABO Confirmed: Yes Blood ordered: No SA Swab: Yes - results: Negative Last Dose of Anticoagulation: None Op Note: N/A Pacemaker Check: N/A Consults: none DM: No Cardiac Surgical prep: N/A SIGNATURE: Shelly Son ORTHOTIC/PROSTHETIC PRACTITIONER CHECKED BY: rashel DATE of SERVICE: 11/19/2014 TIME of SERVICE: 11:11 AM Thoracic facet syndrome 11/17/201105/31 Aortic stenosis 12/01/2014 Ascending aortic aneurysm Overview: S/p ascending repair documented as of this encounter (statuses as of 06/27/2023) [facility] History of Past illness Narrative* Problem Noted Date Diagnosed Date Resolved Date Intercostal pain 12/24/2020 06/27/2023 Malnutrition of moderate degree 12/24/2014 06/29/2021 Overview: History: 2nd to prolonged illness/hospitalization Assessment: nutrition evaluated and mod degree malnutrition Plan: -encourage oral intake at home, con't supplements at home if needed. Atrial flutter 12/12/2014 06/27/2023 Overview: History: post op Aflutter Assessment: maintaining sinus. Plan: continue toprol XL. coumadin f/u with [facility] Dr. Roach Change in mental status 12/09/201412/01 Overview: History: 12/07/14 pt developed confusion at home, Called 911 transferred back to [facility]. Another brief episode of amnesia in the morning of 12/11. per neurology She does have two punctate lesions on MRI that can be infarcts, but I think these are asymptomatic. EEG does not show any seizure activity or epileptogenic potential. The episode was repeated briefly on 12/11 in AM. Assessment: No additional episodes Plan: -Continue Bivalirudin-LOW THRESHOLD FOR REPEATING CT SCAN OF BRAIN IF DEVELOPS CONFUSION/HEADACHE. Follow neurologic status closely Ischemic stroke diagnosed du janay current admission 12/08/2014 12/09/2014 Stroke (cerebrum) 12/07/2014 12/09/2014 Nausea 12/04/2014 12/06/2014 Overview: resolved con't reglan for today then DC Stress hyperglycemia 12/03/2014 015 Overview: History: no hx of DM Assessment: stress hyperglycemia 2nd to [facility], no coverage x 24 hours Plan: -DC accuchecks and SSI. Acute postoperative pain 12/02/201401/2015 Overview: 12/02/2014 Analgesia plan - scheduled acetaminophen. 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 central communications specialist Thrombocytopenia 12/02/2014 12/03/2014 Overview: 12/02/2014 Expected mild postop decrease in plt ct. No bleeding. Monitor Atelectasis/volume overload 12/02/2014 12/16/2014 Overview: History: 2nd to [facility] Assessment: CXR today, 12/03 with small bilateral pleural effusions & atelectasis. wt up from admission Plan: -encouraged to continue at home ez pep, coughing, deep breathing and ambulation. -DC on tapering dose of lasix Acute blood loss anemia 12/01/2014 02/0 01/2015 Overview: 12/02/2014 Hgb 8.4 on POD #1. NO bleeding. Hemodynamics adequate without s/s endorgan malperfusion. Monitor Pre-op testing 11/19/2014 12/02/2014 Overview: Images from the original note were not included. [facility] PRE[facility] Surgeon: Jose Enrique Black M.D. Informed Consent Completed: Yes STS Score: unsupported CAD: No Is intended procedure a CABG: No - is a beta edith ordered? No - reason: not indicated H & P completed: Yes PA/LAT: Completed CT: Completed MRI: N/A LE US: N/A Cath: Yes - reviewed: Yes Echo:Completed EKG: Completed EF %: 67 PI's: N/A Carotid: N/A Mapping: N/A Dental: Cleared PFT's: Completed No results found for this basename: WBC,HB,HCT,PLT,INR,CREAT in the last 72 hours UA: Normal HCG:N/A ABO/ABO Confirmed: Yes Blood ordered: No SA Swab: Yes - results: Negative Last Dose of Anticoagulation: None Op Note: N/A Pacemaker Check: N/A Consults: none DM: No Cardiac Surgical prep: N/A SIGNATURE: Shelly Son ORTHOTIC/PROSTHETIC PRACTITIONER CHECKED BY: rashel DATE of SERVICE: 11/19/2014 TIME of SERVICE: 11:11 AM Thoracic facet syndrome 11/17/201105/31 Aortic stenosis 12/01/2014 Ascending aortic aneurysm Overview: S/p ascending repair documented as of this encounter (statuses as of 08/29/2023) [facility] History of Past illness Narrative* Problem Noted Date Diagnosed Date Resolved Date Intercostal pain 12/24/2020 06/27/2023 Malnutrition of moderate degree 12/24/2014 06/29/2021 Overview: History: 2nd to prolonged illness/hospitalization Assessment: nutrition evaluated and mod degree malnutrition Plan: -encourage oral intake at home, con't supplements at home if needed. Atrial flutter 12/12/2014 06/27/2023 Overview: History: post op Aflutter Assessment: maintaining sinus. Plan: continue toprol XL. coumadin f/u with [facility] Dr. Roach Change in mental status 12/09/201412/01 Overview: History: 12/07/14 pt developed confusion at home, Called 911 transferred back to [facility]. Another brief episode of amnesia in the morning of 12/11. per neurology She does have two punctate lesions on MRI that can be infarcts, but I think these are asymptomatic. EEG does not show any seizure activity or epileptogenic potential. The episode was repeated briefly on 2/12 in AM. Assessment: No additional episodes Plan: -Continue Bivalirudin-LOW THRESHOLD FOR REPEATING CT SCAN OF BRAIN IF DEVELOPS CONFUSION/HEADACHE. Follow neurologic status closely Ischemic stroke diagnosed du janay current admission 12/08/2014 12/09/2014 Stroke (cerebrum) 12/07/2014 12/09/2014 Nausea 12/04/2014 12/06/2014 Overview: resolved con't reglan for today then DC Stress hyperglycemia 12/03/2014 015 Overview: History: no hx of DM Assessment: stress hyperglycemia 2nd to [facility], no coverage x 24 hours Plan: -DC accuchecks and SSI. Acute postoperative pain 12/02/201401/2015 Overview: 12/02/2014 Analgesia plan - scheduled acetaminophen. 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 central communications specialist Thrombocytopenia 12/02/2014 12/03/2014 Overview: 12/02/2014 Expected mild postop decrease in plt ct. No bleeding. Monitor Atelectasis/volume overload 12/02/2014 12/16/2014 Overview: History: 2nd to [facility] Assessment: CXR today, 12/03 with small bilateral pleural effusions & atelectasis. wt up from admission Plan: -encouraged to continue at home ez pep, coughing, deep breathing and ambulation. -DC on tapering dose of lasix Acute blood loss anemia 12/01/2014 02/0 01/2015 Overview: 12/02/2014 Hgb 8.4 on POD #1. NO bleeding. Hemodynamics adequate without s/s endorgan malperfusion. Monitor Pre-op testing 11/19/2014 12/02/2014 Overview: Images from the original note were not included. [facility] PRE-[facility] Surgeon: Jose Enrique Black M.D. Informed Consent Completed: Yes STS Score: unsupported CAD: No Is intended procedure a CABG: No - is a beta edith ordered? No - reason: not indicated H & P completed: Yes PA/LAT: Completed CT: Completed MRI: N/A LE US: N/A Cath: Yes - reviewed: Yes Echo:Completed EKG: Completed EF %: 67 PI's: N/A Carotid: N/A Mapping: N/A Dental: Cleared PFT's: Completed No results found for this basename: WBC,HB,HCT,PLT,INR,CREAT in the last 72 hours UA: Normal HCG:N/A ABO/ABO Confirmed: Yes Blood ordered: No SA Swab: Yes - results: Negative Last Dose of Anticoagulation: None Op Note: N/A Pacemaker Check: N/A Consults: none DM: No Cardiac Surgical prep: N/A SIGNATURE: Shelly Son ORTHOTIC/PROSTHETIC PRACTITIONER CHECKED BY: rashel DATE of SERVICE: 11/19/2014 TIME of SERVICE: 11:11 AM Thoracic facet syndrome 11/17/201105/31 Aortic stenosis 12/01/2014 Ascending aortic aneurysm Overview: S/p ascending repair documented as of this encounter (statuses as of 09/04/2023) [facility] History of Past illness Narrative* Problem Noted Date Resolved Date Malnutrition of moderate degree 12/24/2014 06/29/2021 Overview: History: 2nd to prolonged illness/hospitalization Assessment: nutrition evaluated and mod degree malnutrition Plan: -encourage oral intake at home, con't supplements at home if needed. Change in mental status 12/09/2014 12/20/19 15 Overview: History: 12/07/14 pt developed confusion at home, Called 911 transferred back to [facility]. Another brief episode of amnesia in the morning of 12/11. per neurology She does have two punctate lesions on MRI that can be infarcts, but I think these are asymptomatic. EEG does not show any seizure activity or epileptogenic potential. The episode was repeated briefly on 12/11 in AM. Assessment: No additional episodes Plan: -Continue Bivalirudin-LOW THRESHOLD FOR REPEATING CT SCAN OF BRAIN IF DEVELOPS CONFUSION/HEADACHE. Follow neurologic status closely Ischemic stroke diagnosed during current admissi on 12/08/2014 12/09/2014 Stroke (cerebrum) 12/07/2014 12/09/2014 Nausea 12/04/2014 12/06/2014 Overview: resolved con't reglan for today then DC Stress hyperglycemia 12/03/2014 12/05/2014 Overview: History: no hx of DM Assessment: stress hyperglycemia 2nd to [facility], no coverage x 24 hours Plan: -DC accuchecks and SSI. Acute postoperative pain 12/02/2014 015 Overview: 12/02/2014 Analgesia plan - scheduled acetaminophen. 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 central communications specialist Thrombocytopenia 12/02/2014 12/03/2014 Overview: 12/02/2014 Expected mild postop decrease in plt ct. No bleeding. Monitor Atelectasis/volume overload 12/02/201411/30 Overview: History: 2nd to [facility] Assessment: CXR today, 12/03 with small bilateral pleural effusions & atelectasis. wt up from admission Plan: -encouraged to continue at home ez pep, coughing, deep breathing and ambulation. -DC on tapering dose of lasix Acute blood loss anemia 12/01/2014 12/03/19 15 Overview: 12/02/2014 Hgb 8.4 on POD #1. NO bleeding. Hemodynamics adequate without s/s endorgan malperfusion. Monitor Pre-op testing 11/19/2014 12/02/2014 Overview: Images from the original note were not included. [facility] PRE[facility] Surgeon: Jose Enrique Black M.D. Informed Consent Completed: Yes STS Score: unsupported CAD: No Is intended procedure a CABG: No - is a beta edith ordered? No - reason: not indicated H & P completed: Yes PA/LAT: Completed CT: Completed MRI: N/A LE US: N/A Cath: Yes - reviewed: Yes Echo:Completed EKG: Completed EF %: 67 PI's: N/A Carotid: N/A Mapping: N/A Dental: Cleared PFT's: Completed No results found for this basename: WBC,HB,HCT,PLT,INR,CREAT in the last 72 hours UA: Normal HCG:N/A ABO/ABO Confirmed: Yes Blood ordered: No SA Swab: Yes - results: Negative Last Dose of Anticoagulation: None Op Note: N/A Pacemaker Check: N/A Consults: none DM: No Cardiac Surgical prep: N/A SIGNATURE: Shelly Son ORTHOTIC/PROSTHETIC PRACTITIONER CHECKED BY: rashel DATE of SERVICE: 11/19/2014 TIME of SERVICE: 11:11 AM Aortic stenosis 12/01/2014 Ascending aortic aneurysm 2014 Overview: S/p ascending repair documented as of this encounter (statuses as of 06/02/2022) [facility] History of Past illness Narrative* Problem Noted Date Resolved Date Malnutrition of moderate degree 12/24/2014 06/29/2021 Overview: History: 2nd to prolonged illness/hospitalization Assessment: nutrition evaluated and mod degree malnutrition Plan: -encourage oral intake at home, con't supplements at home if needed. Change in mental status 12/09/2014 12/20/19 15 Overview: History: 12/07/14 pt developed confusion at home, Called 911 transferred back to [facility]. Another brief episode of amnesia in the morning of 12/11. per neurology She does have two punctate lesions on MRI that can be infarcts, but I think these are asymptomatic. EEG does not show any seizure activity or epileptogenic potential. The episode was repeated briefly on 12/11 in AM. Assessment: No additional episodes Plan: -Continue Bivalirudin-LOW THRESHOLD FOR REPEATING CT SCAN OF BRAIN IF DEVELOPS CONFUSION/HEADACHE. Follow neurologic status closely Ischemic stroke diagnosed during current admissi on 12/08/2014 12/09/2014 Stroke (cerebrum) 12/07/2014 12/09/2014 Nausea 12/04/2014 12/06/2014 Overview: resolved con't reglan for today then DC Stress hyperglycemia 12/03/2014 12/05/2014 Overview: History: no hx of DM Assessment: stress hyperglycemia 2nd to [facility], no coverage x 24 hours Plan: -DC accuchecks and SSI. Acute postoperative pain 12/02/2014 015 Overview: 12/02/2014 Analgesia plan - scheduled acetaminophen. 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 central communications specialist Thrombocytopenia 12/02/2014 12/03/2014 Overview: 12/02/2014 Expected mild postop decrease in plt ct. No bleeding. Monitor Atelectasis/volume overload 12/02/201411/30 Overview: History: 2nd to [facility] Assessment: CXR today, 12/03 with small bilateral pleural effusions & atelectasis. wt up from admission Plan: -encouraged to continue at home ez pep, coughing, deep breathing and ambulation. -DC on tapering dose of lasix Acute blood loss anemia 12/01/2014 12/03/19 15 Overview: 12/02/2014 Hgb 8.4 on POD #1. NO bleeding. Hemodynamics adequate without s/s endorgan malperfusion. Monitor Pre-op testing 11/19/2014 12/02/2014 Overview: Images from the original note were not included. [facility] Surgeon: Jose Enrique Black M.D. Informed Consent Completed: Yes STS Score: unsupported CAD: No Is intended procedure a CABG: No - is a beta edith ordered? No - reason: not indicated H & P completed: Yes PA/LAT: Completed CT: Completed MRI: N/A LE US: N/A Cath: Yes - reviewed: Yes Echo:Completed EKG: Completed EF %: 67 PI's: N/A Carotid: N/A Mapping: N/A Dental: Cleared PFT's: Completed No results found for this basename: WBC,HB,HCT,PLT,INR,CREAT in the last 72 hours UA: Normal HCG:N/A ABO/ABO Confirmed: Yes Blood ordered: No SA Swab: Yes - results: Negative Last Dose of Anticoagulation: None Op Note: N/A Pacemaker Check: N/A Consults: none DM: No Cardiac Surgical prep: N/A SIGNATURE: PEDRO Norris CHECKED BY: rashel DATE of SERVICE: 11/19/2014 TIME of SERVICE: 11:11 AM Aortic stenosis 12/01/2014 Ascending aortic aneurysm 2014 Overview: S/p ascending repair documented as of this encounter (statuses as of 07/05/2022) [facility]02-[facility]-2015 History of Past illness Narrative* Problem Noted Date Resolved Date Malnutrition of moderate degree 12/24/2014 06/29/2021 Overview: History: 2nd to prolonged illness/hospitalization Assessment: nutrition evaluated and mod degree malnutrition Plan: -encourage oral intake at home, con't supplements at home if needed. Change in mental status 12/09/2014 12/20/19 15 Overview: History: 12/07/14 pt developed confusion at home, Called 911 transferred back to [facility]. Another brief episode of amnesia in the morning of 12/11. per neurology She does have two punctate lesions on MRI that can be infarcts, but I think these are asymptomatic. EEG does not show any seizure activity or epileptogenic potential. The episode was repeated briefly on 12/11 in AM. Assessment: No additional episodes Plan: -Continue Bivalirudin-LOW THRESHOLD FOR REPEATING CT SCAN OF BRAIN IF DEVELOPS CONFUSION/HEADACHE. Follow neurologic status closely Ischemic stroke diagnosed during current admissi on 12/08/2014 12/09/2014 Stroke (cerebrum) 12/07/2014 12/09/2014 Nausea 12/04/2014 12/06/2014 Overview: resolved con't reglan for today then DC Stress hyperglycemia 12/03/2014 12/05/2014 Overview: History: no hx of DM Assessment: stress hyperglycemia 2nd to [facility], no coverage x 24 hours Plan: -DC accuchecks and SSI. Acute postoperative pain 12/02/2014 015 Overview: 12/02/2014 Analgesia plan - scheduled acetaminophen. 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 central communications specialist Thrombocytopenia 12/02/2014 12/03/2014 Overview: 12/02/2014 Expected mild postop decrease in plt ct. No bleeding. Monitor Atelectasis/volume overload 12/02/201411/30 Overview: History: 2nd to [facility] Assessment: CXR today, 12/03 with small bilateral pleural effusions & atelectasis. wt up from admission Plan: -encouraged to continue at home ez pep, coughing, deep breathing and ambulation. -DC on tapering dose of lasix Acute blood loss anemia 12/01/2014 12/03/19 15 Overview: 12/02/2014 Hgb 8.4 on POD #1. NO bleeding. Hemodynamics adequate without s/s endorgan malperfusion. Monitor Pre-op testing 11/19/2014 12/02/2014 Overview: Images from the original note were not included. [facility] Surgeon: Jose Enrique Black M.D. Informed Consent Completed: Yes STS Score: unsupported CAD: No Is intended procedure a CABG: No - is a beta edith ordered? No - reason: not indicated H & P completed: Yes PA/LAT: Completed CT: Completed MRI: N/A LE US: N/A Cath: Yes - reviewed: Yes Echo:Completed EKG: Completed EF %: 67 PI's: N/A Carotid: N/A Mapping: N/A Dental: Cleared PFT's: Completed No results found for this basename: WBC,HB,HCT,PLT,INR,CREAT in the last 72 hours UA: Normal HCG:N/A ABO/ABO Confirmed: Yes Blood ordered: No SA Swab: Yes - results: Negative Last Dose of Anticoagulation: None Op Note: N/A Pacemaker Check: N/A Consults: none DM: No Cardiac Surgical prep: N/A SIGNATURE: PEDRO Norris CHECKED BY: rashel DATE of SERVICE: 11/19/2014 TIME of SERVICE: 11:11 AM Aortic stenosis 12/01/2014 Ascending aortic aneurysm 2014 Overview: S/p ascending repair documented as of this encounter (statuses as of 12/19/2022) [facility]2015 History of Past illness Narrative* Problem Noted Date Resolved Date Malnutrition of moderate degree 12/24/2014 06/29/2021 Overview: History: 2nd to prolonged illness/hospitalization Assessment: nutrition evaluated and mod degree malnutrition Plan: -encourage oral intake at home, con't supplements at home if needed. Change in mental status 12/09/2014 12/20/19 15 Overview: History: 12/07/14 pt developed confusion at home, Called 911 transferred back to [facility]. Another brief episode of amnesia in the morning of 12/11. per neurology She does have two punctate lesions on MRI that can be infarcts, but I think these are asymptomatic. EEG does not show any seizure activity or epileptogenic potential. The episode was repeated briefly on 12/11 in AM. Assessment: No additional episodes Plan: -Continue Bivalirudin-LOW THRESHOLD FOR REPEATING CT SCAN OF BRAIN IF DEVELOPS CONFUSION/HEADACHE. Follow neurologic status closely Ischemic stroke diagnosed during current admissi on 12/08/2014 12/09/2014 Stroke (cerebrum) 12/07/2014 12/09/2014 Nausea 12/04/2014 12/06/2014 Overview: resolved con't reglan for today then DC Stress hyperglycemia 12/03/2014 12/05/2014 Overview: History: no hx of DM Assessment: stress hyperglycemia 2nd to [facility], no coverage x 24 hours Plan: -DC accuchecks and SSI. Acute postoperative pain 12/02/2014 015 Overview: 12/02/2014 Analgesia plan - scheduled acetaminophen. 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 central communications specialist Thrombocytopenia 12/02/2014 12/03/2014 Overview: 12/02/2014 Expected mild postop decrease in plt ct. No bleeding. Monitor Atelectasis/volume overload 12/02/201411/30 Overview: History: 2nd to [facility] Assessment: CXR today, 12/03 with small bilateral pleural effusions & atelectasis. wt up from admission Plan: -encouraged to continue at home ez pep, coughing, deep breathing and ambulation. -DC on tapering dose of lasix Acute blood loss anemia 12/01/2014 12/03/19 15 Overview: 12/02/2014 Hgb 8.4 on POD #1. NO bleeding. Hemodynamics adequate without s/s endorgan malperfusion. Monitor Pre-op testing 11/19/2014 12/02/2014 Overview: Images from the original note were not included. [facility] PRE-[facility] CHECK[facility] Surgeon: Jose Enrique Black M.D. Informed Consent Completed: Yes STS Score: unsupported CAD: No Is intended procedure a CABG: No - is a beta edith ordered? No - reason: not indicated H & P completed: Yes PA/LAT: Completed CT: Completed MRI: N/A LE US: N/A Cath: Yes - reviewed: Yes Echo:Completed EKG: Completed EF %: 67 PI's: N/A Carotid: N/A Mapping: N/A Dental: Cleared PFT's: Completed No results found for this basename: WBC,HB,HCT,PLT,INR,CREAT in the last 72 hours UA: Normal HCG:N/A ABO/ABO Confirmed: Yes Blood ordered: No SA Swab: Yes - results: Negative Last Dose of Anticoagulation: None Op Note: N/A Pacemaker Check: N/A Consults: none DM: No Cardiac Surgical prep: N/A SIGNATURE: Shelly Son ORTHOTIC/PROSTHETIC PRACTITIONER CHECKED BY: rashel DATE of SERVICE: 11/19/2014 TIME of SERVICE: 11:11 AM Aortic stenosis 12/01/2014 Ascending aortic aneurysm 2014 Overview: S/p ascending repair documented as of this encounter (statuses as of 01/13/2023) [facility] History of Past illness Narrative* Problem Noted Date Resolved Date Malnutrition of moderate degree 12/24/2014 06/29/2021 Overview: History: 2nd to prolonged illness/hospitalization Assessment: nutrition evaluated and mod degree malnutrition Plan: -encourage oral intake at home, con't supplements at home if needed. Change in mental status 12/09/2014 12/20/19 15 Overview: History: 12/07/14 pt developed confusion at home, Called 911 transferred back to [facility]. Another brief episode of amnesia in the morning of 12/11. per neurology She does have two punctate lesions on MRI that can be infarcts, but I think these are asymptomatic. EEG does not show any seizure activity or epileptogenic potential. The episode was repeated briefly on 12/11 in AM. Assessment: No additional episodes Plan: -Continue Bivalirudin-LOW THRESHOLD FOR REPEATING CT SCAN OF BRAIN IF DEVELOPS CONFUSION/HEADACHE. Follow neurologic status closely Ischemic stroke diagnosed during current admissi on 12/08/2014 12/09/2014 Stroke (cerebrum) 12/07/2014 12/09/2014 Nausea 12/04/2014 12/06/2014 Overview: resolved con't reglan for today then DC Stress hyperglycemia 12/03/2014 12/05/2014 Overview: History: no hx of DM Assessment: stress hyperglycemia 2nd to [facility], no coverage x 24 hours Plan: -DC accuchecks and SSI. Acute postoperative pain 12/02/2014 015 Overview: 12/02/2014 Analgesia plan - scheduled acetaminophen. 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 central communications specialist Thrombocytopenia 12/02/2014 12/03/2014 Overview: 12/02/2014 Expected mild postop decrease in plt ct. No bleeding. Monitor Atelectasis/volume overload 12/02/201411/30 Overview: History: 2nd to [facility] Assessment: CXR today, 12/03 with small bilateral pleural effusions & atelectasis. wt up from admission Plan: -encouraged to continue at home ez pep, coughing, deep breathing and ambulation. -DC on tapering dose of lasix Acute blood loss anemia 12/01/2014 12/03/19 15 Overview: 12/02/2014 Hgb 8.4 on POD #1. NO bleeding. Hemodynamics adequate without s/s endorgan malperfusion. Monitor Pre-op testing 11/19/2014 12/02/2014 Overview: Images from the original note were not included. [facility] PRE-[facility] Surgeon: Jose Enrique Black M.D. Informed Consent Completed: Yes STS Score: unsupported CAD: No Is intended procedure a CABG: No - is a beta edith ordered? No - reason: not indicated H & P completed: Yes PA/LAT: Completed CT: Completed MRI: N/A LE US: N/A Cath: Yes - reviewed: Yes Echo:Completed EKG: Completed EF %: 67 PI's: N/A Carotid: N/A Mapping: N/A Dental: Cleared PFT's: Completed No results found for this basename: WBC,HB,HCT,PLT,INR,CREAT in the last 72 hours UA: Normal HCG:N/A ABO/ABO Confirmed: Yes Blood ordered: No SA Swab: Yes - results: Negative Last Dose of Anticoagulation: None Op Note: N/A Pacemaker Check: N/A Consults: none DM: No Cardiac Surgical prep: N/A SIGNATURE: Shelly Son ORTHOTIC/PROSTHETIC PRACTITIONER CHECKED BY: rashel DATE of SERVICE: 11/19/2014 TIME of SERVICE: 11:11 AM Aortic stenosis 12/01/2014 Ascending aortic aneurysm 2014 Overview: S/p ascending repair documented as of this encounter (statuses as of 05/04/2023) [facility] History of Past illness Narrative* Problem Noted Date Diagnosed Date Resolved Date Malnutrition of moderate degree 12/24/2014 06/29/2021 Overview: History: 2nd to prolonged illness/hospitalization Assessment: nutrition evaluated and mod degree malnutrition Plan: -encourage oral intake at home, con't supplements at home if needed. Change in mental status 12/09/201412/01 Overview: History: 12/07/14 pt developed confusion at home, Called 911 transferred back to [facility]. Another brief episode of amnesia in the morning of 12/11. per neurology She does have two punctate lesions on MRI that can be infarcts, but I think these are asymptomatic. EEG does not show any seizure activity or epileptogenic potential. The episode was repeated briefly on 12/11 in AM. Assessment: No additional episodes Plan: -Continue Bivalirudin-LOW THRESHOLD FOR REPEATING CT SCAN OF BRAIN IF DEVELOPS CONFUSION/HEADACHE. Follow neurologic status closely Ischemic stroke diagnosed du janay current admission 12/08/2014 12/09/2014 Stroke (cerebrum) 12/07/2014 12/09/2014 Nausea 12/04/2014 12/06/2014 Overview: resolved con't reglan for today then DC Stress hyperglycemia 12/03/2014 015 Overview: History: no hx of DM Assessment: stress hyperglycemia 2nd to [facility], no coverage x 24 hours Plan: -DC accuchecks and SSI. Acute postoperative pain 12/02/201401/2015 Overview: 12/02/2014 Analgesia plan - scheduled acetaminophen. 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 central communications specialist Thrombocytopenia 12/02/2014 12/03/2014 Overview: 12/02/2014 Expected mild postop decrease in plt ct. No bleeding. Monitor Atelectasis/volume overload 12/02/2014 12/16/2014 Overview: History: 2nd to [facility] Assessment: CXR today, 12/03 with small bilateral pleural effusions & atelectasis. wt up from admission Plan: -encouraged to continue at home ez pep, coughing, deep breathing and ambulation. -DC on tapering dose of lasix Acute blood loss anemia 12/01/20140 01/2015 Overview: 12/02/2014 Hgb 8.4 on POD #1. NO bleeding. Hemodynamics adequate without s/s endorgan malperfusion. Monitor Pre-op testing 11/19/2014 12/02/2014 Overview: Images from the original note were not included. [facility] PRE-OP CHECKLIST Surgeon: Jose Enrique Black M.D. Informed Consent Completed: Yes STS Score: unsupported CAD: No Is intended procedure a CABG: No - is a beta edith ordered? No - reason: not indicated H & P completed: Yes PA/LAT: Completed CT: Completed MRI: N/A LE US: N/A Cath: Yes - reviewed: Yes Echo:Completed EKG: Completed EF %: 67 PI's: N/A Carotid: N/A Mapping: N/A Dental: Cleared PFT's: Completed No results found for this basename: WBC,HB,HCT,PLT,INR,CREAT in the last 72 hours UA: Normal HCG:N/A ABO/ABO Confirmed: Yes Blood ordered: No SA Swab: Yes - results: Negative Last Dose of Anticoagulation: None Op Note: N/A Pacemaker Check: N/A Consults: none DM: No Cardiac Surgical prep: N/A SIGNATURE: PEDRO Norris CHECKED BY: rashel DATE of SERVICE: 11/19/2014 TIME of SERVICE: 11:11 AM Aortic stenosis 12/01/2014 Ascending aortic aneurysm Overview: S/p ascending repair documented as of this encounter (statuses as of 05/30/2023) [facility] + Plan note Future Appointments Appointment Date:12/11/2023 09:00:00 AM Scheduled Provider:India CHAUDHARY MD Location:[facility] Appointment Type:URO Office Visit [facility] evaluation note* Diagnosis S/P AVR (aortic valve replacement) and aortoplasty Heart valve replaced by other means THOMASON (dyspnea on exertion) Other dyspnea and respiratory abnormality Primary hypertension Unspecified essential hypertension [facility] Diagnosis S/P AVR (aortic valve replacement) and aortoplasty Heart valve replaced by other means SVT (supraventricular tachycardia) (HCC) Other specified cardiac dysrhythmias Essential hypertension Unspecified essential hypertension Venous (peripheral) insufficiency Unspecified venous (peripheral) insufficiency documented in this encounter [facility] noteNo assessment information availableK[facility] Work Phone: Evaluation note* Diagnosis S/P AVR (aortic valve replacement) and aortoplasty Heart valve replaced by other means SVT (supraventricular tachycardia) (HCC) Other specified cardiac dysrhythmias Essential hypertension Unspecified essential hypertension Venous (peripheral) insufficiency Unspecified venous (peripheral) insufficiency [facility]* Diagnosis S/P AVR (aortic valve replacement) and aortoplasty- Primary Heart valve replaced by other means SVT (supraventricular tachycardia) (HCC) Other specified cardiac dysrhythmias APC (atrial premature contractions) Supraventricular premature beats Primary hypertension Unspecified essential hypertension Patchy loss of hair Alopecia, unspecified Mixed hyperlipidemia Typical atrial flutter (HCC) Atrial flutter [facility]* Diagnosis Primary hypertension- Primary Unspecified essential hypertension [facility]* Diagnosis Impingement syndrome of left shoulder- Primary Other affections of shoulder region, not elsewhere classified [facility]* Diagnosis S/P AVR (aortic valve replacement) 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- Primary Heart valve replaced by other means APC (atrial premature contractions) Supraventricular premature beats SVT (supraventricular tachycardia) (HCC) Other specified cardiac dysrhythmias Primary hypertension Unspecified essential hypertension Venous (peripheral) insufficiency Unspecified venous (peripheral) insufficiency [facility]* Diagnosis S/P AVR (aortic valve replacement) 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 Heart valve replaced by other means APC (atrial premature contractions) Supraventricular premature beats SVT (supraventricular tachycardia) Other specified cardiac dysrhythmias [facility]* Diagnosis Pain Generalized pain [facility]* Diagnosis Hyperlipidemia, unspecified [facility] Diagnosis Essential hypertension- Primary Unspecified essential hypertension Hyperlipidemia, unspecified hyperlipidemia type Sciatica of left side 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-induced thrombocytopenia) ([facility]) 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 [facility] this [facility] Narrative No data available for this section [facility] InstructionsNot on filedocumented in this encounter [facility] filedocumented in this encounter [facility] No data available for this section [facility] reason for referral (narrative)* Outpatient Procedure (Routine) - Authorized Specialty Diagnoses / Procedures Referred By Contac t Referred To Contact HEART [facility] [place] Diagnoses S/P AVR (aortic valve replacement) and aortoplasty SVT (supraventricular tachycardia) ([facility]) Procedures ECHO ECHO TTHRC R-T 2D W/WOM-MODE COMPL SPEC&COLR D Andres Boyd MD [address] [facility] [address] [facility] [address] [address] Referral ID Status Reason Start Date Expiration Date Visits Requested Visits Authorized [id number] Authorized Auto-Generat ed Referral 12/28/2023 06/26/2024 1 1 * Outpatient Procedure (Routine) - Authorized Specialty Diagnoses / Procedures Referred By Contac t Referred To Contact [facility] [place] Diagnoses S/P AVR (aortic valve replacement) and aortoplasty APC (atrial premature contractions) Procedures ECG COMPLETE ECG ROUTINE ECG W/LEAST 12 LDS W/I&R Andres Boyd MD [address] [facility] [address] [facility] [address] [address] Referral ID Status Reason Start Date Expiration Date Visits Requested Visits Authorized [id number] Authorized Auto-Generat ed Referral 06/27/2023 06/26/2024 1 1 [facility] for referral (narrative)* Diagnostic Procedure Only (Routine) - Closed Specialty Diagnoses / Procedures Referred By Contac t Referred To Contact XR IMAGING Diagnoses Pain Procedures XR SHOULDER GENERAL 3V OR MORE AP/TRUE AP/OTHER LEFT RADEX SHOULDER COMPLETE MINIMUM 2 VIEWS Indigo Saldaña, [address] ] [place] [address] [place] [id number] Referral ID Status Reason Start Date Expiration Date V isits Requested Visits Authorized [id number] Closed Auto-Generate d Referral 04/07/2023 05/06/2024 1 1 [facility] Summary Purpose Family History No Family History Records FoundNo Family History Records FoundNo Family History Records FoundNo Family History Records FoundNo Family History Records FoundNo Family History Records FoundNo Family History Records Found Advance Directives No Advanced Directives Records FoundDocuments on File Type Date Recorded Patient Match Marker Expl anation Advance Directive(s) Advance Directive(s) 02/05/2021 11:39 AM Advance Directive(s) 01/08/2021 8:34 AM Advance Directive Response Recorded Date/ Time Advance Directives No September 06, 2018 2:42pm Chief Complaint and Reason for Visit Chief Complaint Screening Reason for Referral Specialty Diagnoses / Procedures Referred By Lyn cui Referred To Contact [facility] Diagnoses Impingement syndrome of left shoulder Procedures CONSULT TO PHYSICAL THERAPY PHYSICAL THERAPY EVALUATION HIGH COMPLEX 45 MINS Indigo Saldaña DO [address] [place] [address] [facility] [employer] [address] [place] [address] Referral ID Status Reason Start Date Expiration Date Visits Requested Visits Authorized [id number] Authorized PCP Requested Referral Auto-Generate d Referral 05/30/2023 05/29/2024 99 99 Specialty Diagnoses / Procedures Referred By Lyn cui Referred To Contact Dermatology Diagnoses Patchy loss of hair Procedures CONSULT TO DERMATOLOGY OFFICE/OUTPATIENT [facility] MDM 60-74 MINUTES Nitza Mae APRN.MARKETING AUTOMATION SPECIALIST [address] [place] [address] Referral ID Status Reason Start Date Expiration Date Visits Requested Visits Authorized [id number] Authorized PCP Requested Referral 12/27/2022 12/27/2023 1 1 Medications Administered Section Inactive Administered Medications - up to 3 most recent administrations Medication Order MAR Action Action Date Dose Rate Site lidocaine (PF) 10 mg/mL (1 %) 4 mL injection (XYLOCAINE) 4 mL, Injection - FOR ORTHO USE ONLY, ONE TIME INJECTION, 1 dose, Starting on Mon05/30/23 at 1034, Until Mon05/30/23 at 1034 Given 05/30/2023 10:34 AM EDT 4 mL Shoulder, Left triamcinolone acetonide 40 mg injection (KeNALog 40) 40 mg, Injection - FOR ORTHO USE ONLY, ONE TIME INJECTION, 1 dose, Starting on Mon05/30/23 at 1034, Until Mon05/30/23 at 1034 Given 05/30/2023 10:34 AM EDT 40 mg Shoulder, Left Additional Source Comments INFORMATION SOURCE (unrecogn ized section and content) DATE CREATED AUTHOR 07/22/2020 [facility] DATE CREATED AUTHOR AUTHOR'S ORGANIZ ATION 11/09/2021 [facility] DATE CREATED AUTHOR AUTHOR'S ORGANIZ ATION 09/29/2022 [facility] DATE CREATED AUTHOR AUTHOR'S ORGANIZ ATION 12/07/2022 [facility] DATE CREATED AUTHOR AUTHOR'S ORGANIZ ATION [facility] DATE CREATED AUTHOR AUTHOR'S ORGANIZ ATION 06/30/2023 [facility] DATE CREATED AUTHOR AUTHOR'S ORGANIZ ATION 11/12/2023 [facility] Source Comments (unrecognize d section and content) In the event this informatio n is protected by the Federal Confidentiality of Alcohol and Drug Abuse Patient Records regulations: The Federal rules restrict any use of the information to criminally investigate or prosecute any alcohol or drug abuse patient.[facility] the event this information is protected by the Federal Confidentiality of Alcohol and Drug Abuse Patient Records regulations: The Federal rules restrict any use of the information to criminally investigate or prosecute any alcohol or drug abuse patient.[facility] the event this information is protected by the Federal Confidentiality of Alcohol and Drug Abuse Patient Records regulations: The Federal rules restrict any use of the information to criminally investigate or prosecute any alcohol or drug abuse patient.[facility] Hospital[facility] the event this information is protected by the Federal Confidentiality of Alcohol and Drug Abuse Patient Records regulations: The Federal rules restrict any use of the information to criminally investigate or prosecute any alcohol or drug abuse patient.[facility] Hospital[facility] the event this information is protected by the Federal Confidentiality of Alcohol and Drug Abuse Patient Records regulations: The Federal rules restrict any use of the information to criminally investigate or prosecute any alcohol or drug abuse patient.[facility] Hospital[facility] the event this information is protected by the Federal Confidentiality of Alcohol and Drug Abuse Patient Records regulations: The Federal rules restrict any use of the information to criminally investigate or prosecute any alcohol or drug abuse patient.[facility] Hospital[facility] the event this information is protected by the Federal Confidentiality of Alcohol and Drug Abuse Patient Records regulations: The Federal rules restrict any use of the information to criminally investigate or prosecute any alcohol or drug abuse patient.[facility] the event this information is protected by the Federal Confidentiality of Alcohol and Drug Abuse Patient Records regulations: The Federal rules restrict any use of the information to criminally investigate or prosecute any alcohol or drug abuse patient.[facility] Hospital[facility] the event this information is protected by the Federal Confidentiality of Alcohol and Drug Abuse Patient Records regulations: The Federal rules restrict any use of the information to criminally investigate or prosecute any alcohol or drug abuse patient.[facility] Reason for Visit (unrecogniz ed section and content) Reason Onset Date Comments Refill Request 06/02/2022 Reason Onset Date Comments Refill Request 07/02/2022 Reason Onset Date Comments Refill Request 12/17/2022 Reason Comments CARD Follow Up 6 Month Reason Comments New Reason Comments Follow Up Reason Onset Date Comments Refill Request 08/28/2023 Reason Comments Radiology XR Specialty Diagnoses / Procedures Referred By Contac t Referred To Contact XR IMAGING Diagnoses Pain Procedures XR SHOULDER GENERAL 3V OR MORE AP/TRUE AP/OTHER LEFT RADEX SHOULDER COMPLETE MINIMUM 2 VIEWS [facility], [address] ] [place] [address] [place] [address] Referral ID Status Reason Start Date Expiration Date V isits Requested Visits Authorized [id number] Closed Auto-Generate d Referral 04/07/2023 05/06/2024 1 1 Reason Onset Date Comments Med Refill 11/06/2023 Reason Comments Hyperlipidemia Hypertension Care Teams (unrecognized sec tion and content) Chip Machine Operator Relationship Specialty Start Date End Date Rachael Canela PCP - General Internal Medicine 08/04/15 Amparo Nguyen LSW [employer] 12/12/14 Chip Machine Operator Relationship Specialty Start Date End Date Rachael Canela PCP - General Internal Medicine 08/04/15 Amparo Nguyen LSW [employer] 12/12/14 Team Status: Inactive Member Role Status Dates Rachael Canela DO Primary Care Provider, Other Provider Active Referral Self Attending Provider Active Carlos King DO Referring Provider Active Team Status: Active Member Role Status Dates Rachael Canela DO Primary Care Provider Active Chip Machine Operator Relationship Specialty Start Date End Date Rachael Canela PCP - General Internal Medicine 08/04/15 Amparo Nguyen LSW [employer] 12/12/14 Chip Machine Operator Relationship Specialty Start Date End Date Rachael Canela PCP - General Internal Medicine 08/04/15 Amparo Nguyen LSW [employer] 12/12/14 Chip Machine Operator Relationship Specialty Start Date End Date Rachael Canela PCP - General Internal Medicine 08/04/15 Amparo Nguyen LSW [employer] 12/12/14 Chip Machine Operator Relationship Specialty Start Date End Date Rachael Canela PCP - General Internal Medicine 08/04/15 Amparo Nguyen, DIRECTOR BIOMEDICAL ENGINEERING [employer] 12/12/14 Chip Machine Operator Relationship Specialty Start Date End Date Rachael Canela PCP - General Internal Medicine 08/04/15 Amparo Nguyen, [facility] [employer]ner 12/12/14 Chip Machine Operator Relationship Specialty Start Date End Date Rachael Canela PCP - General Internal Medicine 08/04/15 Amparo Nguyen, [facility] [employer] 12/12/14 Chip Machine Operator Relationship Specialty Start Date End Date Rachael Canela PCP - General Internal Medicine 08/04/15 Amparo Nguyen, [facility] [employer] 12/12/14 Chip Machine Operator Relationship Specialty Start Date End Date Rachael Canela DO [address] [place] [address] PCP - General Internal Medicine 07/17/17 Chip Machine Operator Relationship Specialty Start Date End Date Rachael Canela DO [address] [place] [address] PCP - General Internal Medicine 07/17/17 Goals (unrecognized section and content) Goals may be documented in a n alternate section No data available for this sectionNot on filedocumented as of this encounterNot on filedocumented as of this encounter FOR RECORDS PERTAINING TO PATIENTS WHO ARE OR HAVE BEEN ENROLLED IN A CHEMICAL DEPENDENCY/SUBSTANCEABUSE PROGRAM, SOME INFORMATION MAY BE OMITTED. This clinical summary was aggregated from multiple sources. Caution should be exercised in using it in the provision of clinical care. This summary normalizes information from multiple sources, and as a consequence, information in this document may materially change the coding, format and clinical context of patient data. In addition, data may be omitted in some cases. CLINICAL DECISIONS SHOULD BE BASED ON THE PRIMARY CLINICAL RECORDS. [facility]. provides no warranty or guarantee of the accuracy or completeness of information in this document.
--- NOTE | 2023-11-24 14:11 | XR_ITS ---
The [address] [address] Patient Name: FERNANDO RAMOS MRN: [id number] date: 1950 Sex: F Assigned Patient Location: RAD Current Patient Location: RAD Accession/Order Number: [id number] Exam Date: 11/24/2023 14:12 Report Date: 11/24/2023 16:09 At the request of: INDIA SOLIS Procedure: XR abdomen 1V EXAM: XR abdomen 1V HISTORY: Kidney Stone Z87.442 COMPARISON: Single view abdomen study dated 12/05/2022 TECHNIQUE: AP supine view of the abdomen was obtained. FINDINGS: No obvious opaque renal, ureteral, or bladder calculus. A few small calcifications overlying the pelvis similar to the prior study likely representing phleboliths. Bowel gas pattern is grossly nonspecific. Mild degenerative changes at the lower lumbar level with slight convexity to the right. [id number] degenerative changes about the hip joints. XR/XR abdomen 1V IMPRESSION: No obvious opaque calculus. Likely few small phleboliths in the pelvis similar to the prior study. Electronically authenticated by: CARLOS PIZARRO Date: 11/24/2023 16:09
== END 2023-11-24 14:02 | disposition home or self-care (01) ==
PROVIDERS: PCP Internal Medicine; Visit Provider Urology
DX: Z87.442 Personal history of urinary calculi (principal)
CPT/HCPCS: 74018

== ENCOUNTER 2024-06-17 09:09 | Outpatient (OUT) | payer MEDICARE, SELFPAY ==
--- NOTE | 2024-06-17 09:17 | XR_ITS ---
The [address] [address] Patient Name: FERNANDO RAMOS MRN: [id number] date: 1950 Sex: F Assigned Patient Location: [facility] Current Patient Location: Accession/Order Number: [id number] Exam Date: 06/17/2024 09:35 Report Date: 06/19/2024 04:29 At the request of: MARCO BARRAZA Procedure: XR abdomen 1V EXAMINATION: XR abdomen 1V HISTORY: History Of Renal Stone Z87.442 COMPARISON: XR abdomen 11/24/2023 FINDINGS: KIDNEY/URETER - RIGHT: No visible renal or ureteral calcifications. KIDNEY/URETER - LEFT: 6 cm calcification projecting over region of superior pole of kidney; renal stone versus splenic calcification. PELVIS: No visible ureteral stones. Stable calcification lateral left pelvis favoring a phlebolith or atherosclerotic disease. BOWEL: No abnormal dilation or deviation. BONES: No acute abnormality. OTHER: Negative. No abnormal gaseous collections. XR/XR abdomen 1V IMPRESSION: 1. Left nephrolithiasis is suspected. 2. Evaluation is limited due to dense overlying bowel content. Electronically authenticated by: MEERA HARTMANN Date: 06/19/2024 04:29
--- OUTSIDE RECORDS SUMMARY | 2024-06-17 09:34 | XMS_ITS | CCD ---
Author Organization [facility] CliniSymt Care Team Providers Care [place] Name Role Phone Patrick FELIX, Amparo Unavailable Unavailab Rachael Dai Primary Care Provider DO Rachael Canela Primary Care Provider DO Rachael Canela Other Provider Self, Referral Attending Provider Unavailable DO Carlos King Referring Provider [phone] DR INDIA SOLIS Admitting Unavailable IRMA, DR OSBORNE Attending Unavailable ROLA, DR CANO Primary Care Unavailable DR INDIA SOLIS Consulting Unavailable MARY KATE, DR MEERA Yang Consulting Unavailable RACHAEL CANELA Primary Care Physician [phone] Patrick FELIX Amparo Unavailable Unavailab Rachael Dai Primary Care Provider Rachael Canela DO Primary Care Provider [phone] RACHAEL CANELA Attending Unavailable RACHAEL CANELA Referring Unavailable RACHAEL CANELA Primary Care Unavailable RACHAEL CANELA Referring Unavailable RACHAEL CANELA Primary Care Unavailable DO Rachael Canela Primary Care Provider Self, Referral Attending Provider Unavailable DO Carlos King Referring Provider Self, Referral Attending Unavailable Prashanth, Referral Admitting Unavailable Carlos King Referring Unavailable Rachael Canela Primary Care Unavailable Rachael Canela Primary Care Provider ANDRES BOYD Attending Unavailable RACHAEL CANELA Primary Care Unavailable RACHAEL CANELA Primary Care Unavailable JENNAKA, SUROVI Referring Unavailable OLIVER, SUROVI Attending Unavailable RACHAEL CANELA Primary Care Unavailable HAZARIKA, SUROVI Referring Unavailable YUHAS, RACHAEL LARRY Primary Care Unavailable HAZARIKA, SUROVI Referring Unavailable YUHAS, RACHAEL LARRY Primary Care Unavailable HAZARIKA, SUROVI Referring Unavailable INDIGO SALDAÑA Referring Unavailable YUHAS, RACHAEL LARRY Primary Care Unavailable INDIGO SALDAÑA Attending Unavailable YUHAS, RACHAEL LARRY Primary Care Unavailable HAZARIKA, SUROVI Attending Unavailable YUHAS, RACHAEL LARRY Primary Care Unavailable HAZARIKA, SUROVI Referring Unavailable YUHAS, RACHAEL LARRY Primary Care Unavailable YUHAS, RACHAEL L Referring Unavailable YUHAS, RACHAEL L Primary Care Unavailable YUHAS, RACHAEL L Admitting Unavailable YUHAS, RACHAEL L Attending Unavailable YUHAS, RACHAEL L Referring Unavailable YUHAS, RACHAEL L Primary Care Unavailable YUHAS, RACHAEL L Attending Unavailable YUHAS, RACHAEL L Referring Unavailable YUHAS, RACHAEL L Primary Care Unavailable YUHAS, RACHAEL L Attending Unavailable YUHAS, RACHAEL L Referring Unavailable YUHAS, RACHAEL L Primary Care Unavailable Radha Bustillos Attending Unavailable OrRadha dalton X Attending Unavailable Allergies Allergy Classification Reported Allergen(s) Allergy Type Date of Onset Reaction(s) Facility (20 sources) heparin; Translations: [heparin] Drug Allergy 5 Other: See Comments, Platelet factor 4-heparin complex Ab, bleeding [facility] Work Phone: (19 sources) Sulfonamides (Antibiotic); Translations: [SULFA (SULFONAMIDE ANTIBIOTICS)] Drug Allergy 2 Rash [facility] Work Phone: (1 source) heparin Drug Allergy 5 [facility] (1 source) Sulfonamides (Antibiotic) Drug allergy (disorder) 0 [facility] (3 sources) Sulfonamides (Antibiotic); Translations: [sulfa drugs] Drug allergy Eruption of skin (disorder) [facility] [place] Medications Current Medications Medication Drug Class(es) Dates Sig (Normalized) Sig (Original) acetaminophen 325 mg oral tablet (16 sources) Start: 01-06-2015 take 2 tablets by mouth every six hours as needed acetaminophen (TYLENOL) 325 mg tablet Take 2 tablets by mouth every 6 hours as needed for Pain (DO NOT EXCEED 4,000 MG IN 24 HOUR PERIOD). 0 01/06/2015 Active Comment on above: Take 2 tablets by [facility] every 6 hours as needed for Pain (DO NOT EXCEED 4,000 MG IN 24 HOUR PERIOD). atorvastatin 10 mg oral tablet (18 sources) HMG-CoA Reductase Inhibitor Start: 12-09-2022 End: 11-06-2023 take 1 tablet by mouth once daily atorvastatin (LIPITOR) 10 mg tablet Indications: Hyperlipidemia, unspecified TAKE 1 TABLET BY MOUTH EVERY DAY 90 tablet 1 11/06/2023 Active Comment on above: Take 10 mg by mouth once daily. cholecalciferol 1.25 mg oral capsule (13 sources) Vitamin D take 1 capsule by mouth every week cholecalciferol, Vitamin D3, (VITAMIN D3) 1,250 mcg (50,000 unit) cap capsule Take 50,000 Units by mouth one time a week. 0 Active Comment on above: Take 50,000 Units by mouth one time a week. furosemide 20 mg oral tablet (1 source) Loop Diuretic Start: 02-28-2024 furosemide (LASIX) 20 mg tablet Indications: S/P AVR (aortic valve replacement) and aortoplasty , SVT (supraventricular tachycardia) ([facility]) Take 1 tablet by mouth as directed. TAKE 20 MG DAILY NEEDED FOR WEIGHT INCREASE OF >5 LBS OVER 3 DAYS OR WORSENING LEG SWELLING. 30 tablet 3 02/28/2024 Active hydroCHLOROthiazide 25 mg / spironolactone 25 mg oral tablet (4 sources) Thiazide Diuretic, Aldosterone Antagonist Start: 12-27-2023 take 0.5 tablet by mouth once daily spironolactone-hc tz 25/25 (ALDACTAZIDE) 25-25 mg per tablet Indications: Nonrheumatic tricuspid valve regurgitation Take 0.5 tablets by mouth once daily. 45 tablet 3 12/27/2023 Active Comment on above: Take 0.5 tablets by mouth once daily. latanoprost 0.05 mg/ml ophthalmic solution (6 sources) Prostaglandin Analog Start: 12-09-2022 latanoprost (XALATAN) 0.005 % ophthalmic solution Refill(s) 0 0 12/09/2022 Active Start: 12-09-2022 latanoprost Op th 0.005% Jeanie Refill(s) 0 Start Date: 12/09/22 Status: Ordered take 1 drop(s) into the eye(s) once daily LATANOPROST OPHTHALMIC Use 1 Drop in eyes once daily. 0 Active levothyroxine sodium 0.075 mg oral tablet (18 sources) l-Thyroxine Start: 06-01-2020 levothyroxine Daily, Refills(s) 0 Start [...] Refills(s) 0 Start Date: 06/01/20 Status: Ordered Magnesium (4 sources) take 1 tablet by mouth once daily Magnesium 250 mg tab Take 250 mg by mouth once daily. 0 Active Comment on above: Take 250 mg by mouth once daily. 24 hr metoprolol succinate 50 mg extended release oral tablet (20 sources) beta-Adrenergic Edith Start: 3 take 1 tablet by mouth every twenty-four [...] (atrial premature contractions) , SVT (supraventricular tachycardia) ([facility]) Take 1 tablet by mouth two times [...] 0 12/19/2022 11/06/2023 Discontinued (Therapy completed) Start: 02-10-2023 take 1 mg by mouth once daily [...] mg pm TAKE 2 TABLETS BY MO UTH IN THE MORNING then TAKE 1 TABLET BY MOUTH IN THE EVENING Take 1 tablet by [place] [facility] twice daily. Take 1 tablet by [place] [facility] two times a day. 125 ml sodium chloride 9 mg/ml prefilled syringe (10 sources) Start: 06-27-2023 End: 09-25-2024 sodium chloride 0.9 % (flush) 10 mL (BD POSIFLUSH) Start: 12-27-2021 End: 03-28-2023 sodium chloride 0.9 % (flush ) 10 mL (BD POSIFLUSH) timolol/dorzolamide/latanop/ PF (SROUUUT-AFKULYJDNX-IUUAICE,PF,) 0.5-2-0.005 % drop (10 sources) timolol/dorzolam jama/latanop/PF (VFQKHGJ-MPBABUVMVW-RVOPZWM,PF,) 0.5-2-0.005 % drop Use 1 Drop in eyes every evening. 0 Active Comment on above: Use 1 Drop in eyes e very evening. Vitamin D2 2000 intl units o ral capsule (2 sources) [facility] t: 08 -0 3- 20 20 take 1 capsule by mouth once daily Vitamin D2 2000 intl units oral capsule International_Unit cap(s), Oral, Daily, Refills(s) 0 Start Date: 06/01/20 Status: Ordered Completed/Discontinued Medications Medication Drug Class(es) Dates Sig (Normalized) Sig (Original) amoxicillin 500 mg oral tablet (14 sources) Penicillin-class Antibacterial Start: 08-02-2023 End: 11-06-2023 amoxicillin (AMOXIL) 500 MG tablet Dental prn 0 08/02/2023 11/06/2023 Discontinued (Therapy completed) Start: 03-22-2016 Amoxicillin 50 0 mg tablet Take 4 tablets by mouth 30-60 minutes before dental procedure 4 tablet 11 03/22/2016 Active Comment on above: Take 4 tablets by [facility] 30-60 minutes before dental procedure dapagliflozin 5 mg oral tablet (3 sources) Sodium-Glucose Cotransporter 2 Inhibitor Start : 12-27 End: take 1 tablet by mouth once daily at breakfast dapagliflozin propanediol (FARXIGA) 5 mg tablet Take 1 tablet by mouth daily with breakfast. 90 tablet 3 12/27/2023 12/28/2023 Discontinued (Not on Formulary) Comment on above: Take 1 tablet by [facility] daily with breakfast. hydroCHLOROthiazide 12.5 mg oral capsule (17 sources) Thiazide Diuretic Start : 11-01 End: 12-27 take 1 capsule by mouth once daily after breakfast hydroCHLOROthiazide (HYDRODIURIL, ESIDRIX) 12.5 mg capsule Indications: S/P AVR (aortic valve replacement) and aortoplasty , Primary hypertension Take 1 capsule by mouth daily after breakfast. 90 capsule 3 12/27/2022 12/27/2023 Discontinued (Course of therapy completed) Comment on above: Take 1 capsule by [facility] daily after breakfast. 10 ml lidocaine hydrochloride 10 mg/ml injection (1 source) Antiarrhythmic, Amide Local Anesthetic Start : 05-30 End: 05-30 lidocaine (PF) 10 mg/mL (1 %) 4 mL injection (XYLOCAINE) meloxicam 15 mg oral tablet (2 sources) Nonsteroidal Anti-inflammatory Drug End: 06-27 take 1 tablet by mouth once daily meloxicam (MOBIC) 15 mg tablet Take 15 mg by mouth once daily. 0 06/27/2023 Discontinued (Course of therapy completed) Comment on above: Take 15 mg by mouth once daily. perflutren lipid microspheres 1.3 mL in NaCl (PF) 0.9% 10 mL injection (DEFINITY) (10 sources) Start : 06-27 End: 02-27 perflutren lipid microspheres 1.3 mL in NaCl (PF) 0.9% 10 mL injection (DEFINITY) Start: 06-27-2023 End: 09-25-2024 perflutren lipid microsphere s 1.3 mL in NaCl (PF) 0.9% 10 mL injection (DEFINITY) Start: 12-27-2021 End: 03-28-2023 perflutren lipid microsphere s 1.3 mL in NaCl (PF) 0.9% 10 mL injection (DEFINITY) simvastatin 10 mg oral tablet (1 source) HMG-CoA Reductase Inhibitor Start: 03-23-2018 take 1 tablet by mouth once daily at bedtime simvastatin (ZOCOR) 10 mg tablet Take 1 tablet by mouth daily at bedtime. 90 tablet 3 03/23/2018 Active Comment on above: Take 1 tablet by [place] [facility] daily at bedtime. 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)] Onset: 5 Resolved: 5 10-25-2021 Chronic Congestive heart failure; nonhypertensive (6 sources) Acute on chronic diastolic heart failure; Translations: [Acute on chronic diastolic (congestive) heart failure] Onset: 4 12-27-2023 Chronic Disorders of lipid metabolism (20 sources) Hyperlipidemia; Translations: [Hyperlipidemia, unspecified] Onset: 5 10-25-2021 Chronic Essential hypertension (20 sources) Essential hypertension; Translations: [Essential (primary) hypertension] Onset: 5 Chronic Genitourinary symptoms and ill-defined conditions (7 sources) Stress incontinence (female) (male); Translations: [Genuine stress incontinence] Onset: 3 Chronic Heart valve disorders (20 sources) History of aortic valve replacement; Translations: [Presence of prosthetic heart valve] Onset: 1 Resolved: 5 Chronic Heart valve disorders (2 sources) Heart murmur 06-01-2020 Episodic Osteoarthritis (2 sources) Arthritis 06-01-2020 Chronic Other and unspecified benign neoplasm (1 source) Polyp of colon; Translations: [Polyp of colon] Onset: 4 Episodic Other connective tissue disease (1 source) Impingement syndrome of left shoulder region; Translations: [Impingement syndrome of left shoulder] 05-30-2023 Episodic Other diseases of kidney and ureters (2 sources) Hydronephrosis due to ureteral obstruction 06-01-2020 Episodic Other gastrointestinal disorders (1 source) Other fecal abnormalities; Translations: [Other fecal abnormalities] Onset: 4 Episodic Other screening for suspected conditions (not mental disorders or infectious disease) (2 sources) Encounter for screening for malignant neoplasm of colon; Translations: [Encounter for screening for osteoporosis] Onset: 4 Episodic Other skin disorders (1 source) Loss of hair; Translations: [Nonscarring hair loss, unspecified] Episodic Residual codes; unclassified (1 source) Pain; Translations: [Pain, unspecified] 05-30-2023 Episodic Residual codes; unclassified (1 source) Postmenopausal state; Translations: [Asymptomatic menopausal state] 11-28-2023 Episodic Spondylosis; intervertebral disc disorders; other back problems (1 source) Sciatica; Translations: [Sciatica, left side] 11-10-2023 Episodic Thyroid disorders (16 sources) Hypothyroidism; Translations: [Hypothyroidism, unspecified] Onset: 5 10-25-2021 Chronic Unclassified (13 sources) SUMMARY Onset: 5 01-06-2015 Unclassified (1 source) medicare annual wellness Onset: 4 Unclassified (1 source) Heparin-induced thrombocytopenia, unspecified; Translations: [Heparin-induced thrombocytopenia, unspecified] Onset: 3 Unclassified (1 source) Encounter for screening mammogram for malignant neoplasm of breast; Translations: [Encounter for screening mammogram for malignant neoplasm of breast] Onset: 4 Unclassified (1 source) screening Onset: 4 Past or Other Problems Problem Classification Problem Date Documented Da te Episodic/Chronic Abdominal pain (10 sources) Abdominal pain; Translations: [Right flank pain] Onset: 01-30-2023 06-01-2020 Episodic Acute cerebrovascular disease (2 sources) Cerebrovascular accident; Translations: [Cerebral infarction, unspecified] Onset: 12-07-2014 Resolved: 12-09-2014 Chronic Acute posthemorrhagic anemia (1 source) Acute posthemorrhagic anemia; Translations: [Acute posthemorrhagic anemia] Onset: 12-01-2014 Resolved: 12-03-2014 Episodic Aortic; peripheral; and visceral artery aneurysms (1 source) Aneurysm of ascending aorta; Translations: [Ascending aortic aneurysm] Resolved: 12-02-2014 Chronic Calculus of urinary tract (13 sources) Calculus of kidney; Translations: [History of calculus of kidney] Onset: 12-05-2022 Episodic Conditions associated with dizziness or vertigo (20 sources) Vertigo of central origin; Translations: [Vertigo of central origin] Onset: 03-20-2015 03-20-2015 Episodic Deficiency and other anemia (16 sources) Anemia; Translations: [Anemia, unspecified] Onset: 12-27-2014 10-25-2021 Episodic Diabetes mellitus without complication (1 source) Metabolic stress hyperglycemia; Translations: [Hyperglycemia, unspecified] Onset: 12-03-2014 Resolved: 12-05-2014 Episodic Genitourinary symptoms and ill-defined conditions (5 sources) Christian hematuria; Translations: [Gross hematuria] Onset: 01-30-2023 06-01-2020 Episodic Mood disorders (3 sources) Mood disorders Onset: 09-27-2023 Resolved: 11-28-2023 09-27-2023 Nausea and vomiting (1 source) Nausea; Translations: [Nausea] Onset: 12-04-2014 Resolved: 12-06-2014 Episodic Nonspecific chest pain (10 sources) Pain of intercostal space; Translations: [Intercostal pain] Onset: 12-24-2020 Resolved: 06-27-2023 02-05-2021 Episodic Nutritional deficiencies (1 source) Malnutrition (calorie); Translations: [Moderate protein-calorie malnutrition] Onset: 12-24-2014 Resolved: 06-29-2021 10-25-2021 Chronic Other aftercare (16 sources) Patient encounter status; Translations: [Encounter for therapeutic drug level monitoring] Onset: 12-18-2014 11-28-2023 Episodic Other aftercare (16 sources) Long-term current use of anticoagulant; Translations: [residential (current) use of anticoagulants] Onset: 01-03-2015 01-30-2023 Episodic Other diseases of kidney and ureters (3 sources) Hydronephrosis with renal and ureteral calculous obstruction; Translations: [Calculus of ureter] Onset: 01-30-2023 01-30-2023 Episodic Other diseases of veins and lymphatics (12 sources) Peripheral venous insufficiency; Translations: [Venous insufficiency (chronic) (peripheral)] Onset: 06-27-2023 Episodic Other eye disorders (16 sources) Divergence insufficiency ; Translations: [Other specified disorders of binocular movement] Onset: 06-23-2015 06-23-2015 Episodic Other lower respiratory disease (17 sources) Dyspnea on exertion; Translations: [Other forms of dyspnea] Onset: 06-29-2021 Episodic Other nervous system disorders (1 source) Acute postoperative pain; Translations: [Other acute postprocedural pain] Onset: 12-02-2014 Resolved: 12-03-2014 Episodic Phlebitis; thrombophlebitis and thromboembolism (16 sources) Axillary vein thrombosis; Translations: [Acute embolism and thrombosis of unspecified axillary vein] Onset: 12-18-2014 Resolved: 03-30-2023 10-25-2021 Episodic Pleurisy; pneumothorax; pulmonary collapse (1 source) Atelectasis; Translations: [Atelectasis] Onset: 12-02-2014 Resolved: 12-16-2014 10-25-2021 Episodic Residual codes; unclassified (1 source) Altered mental status; Translations: [Altered mental status, unspecified] Onset: 12-09-2014 Resolved: 12-20-2014 Episodic Residual codes; unclassified (1 source) Pain, unspecified; Translations: [Pain] Onset: 05-30-2023 Episodic Residual codes; unclassified (1 source) Asymptomatic menopausal state; Translations: [Asymptomatic menopausal state] Onset: 12-21-2023 Episodic Spondylosis; intervertebral disc disorders; other back problems (10 sources) Thoracic facet joint pain; Translations: [Other spondylosis, thoracic region] Onset: 11-17-2011 Resolved: 06-27-2023 02-05-2021 Chronic Results Test Name Value Interpretation Reference Range Facility Surgical Pathologyon 024 Surgical Pathology Normal [facility] Comment on above: Result Comment: [facility] [address] [place] [address] Surgical Pathology Consultation Patient Name:LESVIA RAMOS I.:1950 (Age: 73)Gender:FTaken:4Reported:05/31/2024hysician(s):Rachael Canela MD ([phone])Copy To: Rec. #:[id number]: #[id number] Final Pathologic Diagnosis 1. Ascending colon polyp: Hyperplastic polyp fragments. 2. Colon polyp at 50: Tubular adenoma. 3. Colon polyp at 45: Tubular adenoma. 4. Colon polyp at 25: Tubular adenoma. Report Electronically Signed Out 05/31/2024Minoo Schneider MD Interpretation performed at [facility], [address] [facility] [address], License number: [id number]. Clinical History Screening. Gross Description 1. Received in formalin labeled, RICHARD, ascending polyp are 2 rucker delicate, focally erythematous soft tissue fragments, 0.3-0.6 cm in greatest dimension. The specimens are filtered and submitted in a single cassette. (1, pearl, [id number], m7) TB 2. Received in formalin labeled, RICHARD, polyp at 50 is a pale-rucker delicate soft tissue fragment, 0.3 cm in greatest dimension. The specimen is filtered and submitted in a single cassette. (1, ns, [id number], m7) TB 3. Received in formalin labeled, RICHARD, polyp 45 is a pale-rucker delicate soft tissue fragment, 0.3 cm in greatest dimension. The specimens are filtered and submitted in a single cassette. (1, pearl, [id number], m7) TB 4. Received in formalin labeled, RICHARD, polyp at 25 is a pale-rucker delicate soft tissue fragment, 0.5 cm in greatest dimension. The specimen is filtered and submitted in a single cassette. (1, pearl, [id number], m7) TB tgb/05/29/2024SSI Specimen(s) Received 1: Ascending colon polyp 2: Colon polyp at 50 3: Colon polyp at 45 4: Colon polyp at 25 Fee Codes(s): 1; 08190 2; 51976 3; 59090 4; 42091 Shannon 02-28-2024 [facility] Office Visit (DICK ) LESVIA RAMOS I ([id number]) 1950 F Date Time Provider Department 02/28/24 1:30 PM ANDRES BOYD During your visit today, we recorded the following information about you: Pulse Blood pressure Weight 64/minute 120/77 57.3 kg Andres Boyd MD 02/28/2024 2:29 PM Signed [facility] SECTION OF REGIONAL CARDIOLOGY OUTPATIENT VISIT DATE February 28, 2024 OUTPATIENT VISIT TYPE ESTABLISHED PRIMARY CARE PHYSICIAN: Rachael Canela, DO [address] [place] [address] CHIEF COMPLAINT: Follow-up Last visit with me: Nov 2023 HISTORY OF PRESENT ILLNESS: Ms. Ramos is a 73 year old female, seen in cardiology clinic today to for follow-up. At last visit, she was noted to be volume overloaded. Recommended starting Aldactazide and Farxiga, but she was unable to afford Farxiga. Since last visit, Doing well, no specific CV symptoms. Has lost around 6 pounds since prior visit. Diet: Overall well balanced. Otherwise she denies [...] since then, but intermittent palpitations. Moderate TR PHYSICAL EXAMINATION: BP 120/77 Pulse 64 Wt 57.3 kg (126 lb 5.2 oz) BMI 21.68 kg/m? General: No acute distress, appears comfortable HEENT: no bruits, no JVD Pulmonary/chest: CTA b/L. CVS: Normal S1 and S2, Regular rhythm, normal rate. Soft 2/6 early systolic murmur, RUSB. Central and peripheral pulses 2+ B/L, no carotid or abdominal bruits. Abdomen: Soft, non-tender, non-distended. Bowel sounds normal Extremities: skin changes consistent with chronic venous insufficiency, wearing compressions, no edema today Neuro: AAOx4 Psych: Normal mood and affect Ambulatory monitor from December 2023 reviewed and discussed with patient, heart rate range 46 to 203 bpm, average heart rate 73 bpm. 1 run of ventricular tachycardia with 13 beats, multiple SVT runs, around 11% PVCs. Echocardiogram December 27, 2023 reviewed and discussed with patient. LVEF 66%, grade 2 diastolic dysfunction, dilated RV, moderate, 2-3+ tricuspid regurgitation, gradients across the aortic valve 17/9 mmHg with DVI of 0.51. RVSP 30 mmHg. PAST MEDICAL HISTORY Diagnosis Date Aortic stenosis [...] HIT Sulfa (Sulfonamide * Rash CURRENT MEDICATIONS: LATANOPROST OPHTHALMICUse 1 Drop in eyes once daily.Disp: Rfl: Magnesium 250 mg tabTake 250 mg by mouth once daily.Disp: Rfl: spironolactone-hctz 25/25 (ALDACTAZIDE) 25-25 mg per tabletTake 0.5 tablets by mouth once daily.Disp: 45 tabletRfl: 3 metoprolol succinate ER (TOPROL XL) 50 mg 24 hr tabletTake 1 tablet by mouth two times a day.Disp: 180 tabletRfl: 3 atorvastatin (LIPITOR) 10 mg tabletTake 10 mg by mouth once daily.Disp: Rfl: cholecalciferol, Vitamin D3, (VITAMIN D3) 1,250 mcg (50,000 unit) cap capsuleTake 50,000 Units by mouth one time a week.Disp: Rfl: levothyroxine (SYNTHROID) 75 mcg tabletTake 1 tablet by mouth daily before breakfast.Disp: 90 tabletRfl: 3 Amoxicillin 500 mg tabletTake 4 tablets by mouth 30-60 minutes before dental procedureDisp: 4 tabletRfl: 11 timolol/dorzolamide/lat anop/PF (VNASIGG-SZXOCEFUCL-EHR ANOP,PF,) 0.5-2-0.005 % dropUse 1 Drop in eyes every evening.Disp: Rfl: (Patient not taking: Reported on 02/28/2024) acetaminophen (TYLENOL) 325 mg tabletTake 2 tablets by mouth every 6 hours as needed for Pain (DO NOT EXCEED 4,000 MG IN 24 HOUR PERIOD).Disp: Rfl: IMPRESSION/RECOMMENDATI ONS: S/p AVR and aortic root repair for bicuspid aortic valve 11/2014. Echocardiogram December 27, 2023 -LVEF around 66 %, RV is mil (more content not included)... Normal [facility] Basic metabolic 2000 panelon 01-17-2024 Anion gap [Moles/Vol] 11 mmol/L Normal 9-18 [facility] Comment on above: Order Comment: Speci men Type: BLOOD SPECIMEN Ordering Facility: [facility] Address: [address] [place] [address] Performed By: #### 2 4321-2 #### [facility] CLIA [id number] [address] [place] [address] Calcium [Mass/Vol] 10.4 mg/dL High 8.5-10.2 [facility] Comment on above: Order Comment: Speci men Type: BLOOD SPECIMEN Ordering Facility: [facility] Address: [address] [place] [address] Performed By: #### 2 4321-2 #### [facility] CLIA [id number] [address] [place] [address] Chloride [Moles/Vol] 103 mmol/L Normal 97-105 [facility] Comment on above: Order Comment: Speci men Type: BLOOD SPECIMEN Ordering Facility: [facility] Address: [address] [place] [address] Performed By: #### 2 4321-2 #### [facility] CLIA [id number] [address] [place] [address] 17672 CO2 [Moles/Vol] 30 mmol/L Normal 22-30 [facility] Comment on above: Order Comment: Speci men Type: BLOOD SPECIMEN Ordering Facility: [facility] Address: [address] [place] [address] Performed By: #### 2 4321-2 #### [facility] CLIA [id number] [address] [place] [address] 81105 Creatinine [Mass/Vol] 0.97 mg/dL High 0.58-0.96 [facility] Comment on above: Order Comment: Brianda andres Type: BLOOD SPECIMEN Ordering Facility: [facility] Address: [address] [id number] Performed By: #### 2 4321-2 #### [facility] CLIA [id number] [address] [place] [address] 77165 Creatinine and Glomerular filtration rate.predicted panel (S/P/Bld) 62 mL/min/1.73m??? Normal >=60 [facility] Comment on above: Order Comment: Brianda andres Type: BLOOD SPECIMEN Ordering Facility: [facility] Address: [address] [place] [address] Result Comment: Felicia mated Glomerular Filtration Rate [...] reflect actual GFR. Performed By: #### 2 4321-2 #### [facility] CLIA [id number] [address] [place] [address] 75070 Glucose [Mass/Vol] 116 mg/dL High 74-99 [facility] Comment on above: Order Comment: Brianda andres Type: BLOOD SPECIMEN Ordering Facility: [facility] Address: [address] [place], [place] [id number] Result Comment: The [place] [employer] (ADA) provides guidance for cutoff [...] Standards of Medical Care in Diabetes 2016, [place] [employer]. Diabetes Care. 2016.39(Suppl 1). Performed By: #### 2 4321-2 #### [facility] CLIA [id number] [address] [place] [address] 02714 Potassium [Moles/Vol] 4.2 mmol/L Normal 3.7-5.1 [facility] Comment on above: Order Comment: Speci men Type: BLOOD SPECIMEN Ordering Facility: [facility] Address: [address] [place] [address] Performed By: #### 2 4321-2 #### [facility] CLIA [id number] [address] [place] [address] 40355 Sodium [Moles/Vol] 144 mmol/L Normal 136-144 [facility] Comment on above: Order Comment: Speci men Type: BLOOD SPECIMEN Ordering Facility: [facility] Address: [address] [place] [address] Performed By: #### 2 4321-2 #### [facility] CLIA [id number] [address] [place] [address] 24654 Urea nitrogen [Mass/Vol] 18 mg/dL Normal 7-21 [facility] Comment on above: Order Comment: Hakeemi men Type: BLOOD SPECIMEN Ordering Facility: [facility] Address: [address] [place] [address] Performed By: #### 2 4321-2 #### [facility] CLIA [id number] [address] [place] [address]33[address] Sofie 12-28-2023 CNPN Telephone (4CQ) LESVIA RAMOS I ([id number]) 1950 F Date Time Provider Department 12/28/23 ANDRES BOYD 4CQ During your visit today, we recorded the following information about you: Renetta Back 12/28/2023 11:14 AM Signed Zena is calling Andres Boyd MD today with concern regarding Medication Problem Patient has been identified by name and birthdate. Duration of symptoms: N/A Person calling: self Call patient at: at home [phone] (home) [phone] (cell) Was an appointment scheduled: No Patient medication is not cover by her insurance for the [facility] ,can Dr. Boyd find another medication that maybe lower cost and on her insurance plan . Thank you so much Closing statement: Remedios Hdz RN 12/28/2023 11:34 AM Signed Duplicate Allergies As of Date: 12/28/2023 Noted Allergy Reaction HEPARIN 12/09/2014 14 - Other: See Comments Comments: HIT SULFA (SULFONAMIDE ANTIBIOTICS) 11/17/2011 2 - Rash Date Reviewed: 12/28/2023 Reviewed by: Randa Cunningham RN - Fully Assessed Reason for Visit: Medication Problem [65] Prescriptions as of 12/28/2023 - Magnesium 250 mg tab Take 250 mg by mouth once daily. - spironolactone-hctz 25/25 (ALDACTAZIDE) 25-25 mg per tablet Take 0.5 tablets by mouth once daily. - dapagliflozin propanediol (FARXIGA) 5 mg tablet Take 1 tablet by mouth daily with breakfast. - metoprolol succinate ER (TOPROL XL) 50 mg 24 hr tablet Take 1 tablet by mouth two times a day. - timolol/dorzolamide/lat anop/PF (BACCXTZ-TNHMKIEMJM-WFT ANOP,PF,) 0.5-2-0.005 % drop Use 1 Drop in eyes every evening. - atorvastatin (LIPITOR) 10 mg tablet Take 10 mg by mouth once daily. - cholecalciferol, Vitamin D3, (VITAMIN D3) 1,250 mcg (50,000 unit) cap capsule Take 50,000 Units by mouth one time a week. - levothyroxine (SYNTHROID) 75 mcg tablet Take 1 tablet by mouth daily before breakfast. - Amoxicillin 500 mg tablet Take 4 tablets by mouth 30-60 minutes before dental procedure - acetaminophen (TYLENOL) 325 mg tablet Take 2 tablets by mouth every 6 hours as needed for Pain (DO NOT EXCEED 4,000 MG IN 24 HOUR PERIOD). Facility-Administered Medications as of 12/28/2023 - perflutren lipid microspheres 1.3 mL in NaCl (PF) 0.9% 10 mL injection (DEFINITY) - sodium chloride 0.9 % (flush) 10 mL (BD POSIFLUSH) Meds Comments as of 12/07/2014: HTN Problem List As Of Date 12/28/2023 Noted Resolved Thoracic facet syndrome [M47.894] 11/17/2011 06/27/2023 Aortic stenosis [I35.0] 12/01/2014 Ascending aortic aneurysm (HCC) [I71.21] 12/02/2014 Pre-op testing [Z01.818] 11/19/2014 12/02/2014 Acute postoperative pain [G89.18] 12/02/2014 12/03/2014 Acute blood loss anemia [D62] 12/01/2014 12/03/2014 Thrombocytopenia (HCC) [D69.6] 12/02/2014 12/03/2014 Atelectasis/volume overload [J98.11] 12/02/2014 12/16/2014 SUMMARY [V999.95] 12/02/2014 Hyperlipidemia [E78.5] 12/02/2014 Stress hyperglycemia [R73.9] 12/03/2014 12/05/2014 Nausea [R11.0] 12/04/2014 12/06/2014 Hypothyroidism [E03.9] 12/04/2014 Stroke (cerebrum) (HCC) [I63.9] 12/07/2014 12/09/2014 Ischemic stroke diagnosed during current admiss*12/08/2014 12/09/2014 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] 12/09/2014 Change in mental status [R41.82] 12/09/2014 12/20/2014 Atrial flutter (HCC) [I48.92] 12/12/2014 06/27/2023 Anticoagulation management encounter [Z51.81, Z*12/18/2014 Axillary vein thrombosis (HCC) [I82.A19] 12/18/2014 Malnutrition of moderate degree (HCC) [E44.0] 12/24/2014 06/29/2021 Anemia [D64.9] 12/27/2014 Anticoagulation monitoring, special range [Z79.*01/03/2015 Vertigo of central origin [H81.4] 03/20/2015 Peripheral vertigo, unspecified [H81.399] 03/20/2015 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] 06/23/2015 Intercostal pain [R07.82] 12/24/2020 06/27/2023 THOMASON (dyspnea on exertion) [R06.09] 06/29/2021 S/P AVR (aortic valve replacement) and aortopla*06/29/2021 SVT (supraventricular tachycardia) (HCC) [I47.1*12/27/2021 APC (atrial premature contractions) [I49.1] 12/27/2021 Venous (peripheral) insufficiency [I87.2] 06/27/2023 Primary hypertension [I10] 06/27/2023 Nonrheumatic tricuspid valve regurgitation [I36*12/27/2023 PVC (premature ventricular contraction) [I49.3] 12/27/2023 Acute on chronic diastolic heart failure (HCC) *12/27/2023 Encounter Status:Closed by REMEDIOS GAGE on 12/28/[address] [facility] LESVIA RAMOS I ([id number]) 1950 F Date Time Provider Department 12/28/23 ANDRES BOYD During your visit today, we recorded the following information about you: Randa Cunningham, RN 12/28/2023 11:22 AM Signed Pt saw Dr. Boyd yesterday in clinic Documented plan: Stop hydrochlorothiazide, replace days with Aldactone/hydrochloroth iazide 25 mg / 25 mg-half tablet daily Farxiga 5 mg daily, if affordable Pt updates FARXIGA is too expensive ALDACTAZIDE is covered, no cost issues there Pt asking if you can prescribe an Alternative to the Farxiga? 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 She stopped taking her HCTZ as directed.. I told her to go ahead and start the Aldactone/hydrochloroth iazide ...(unless Provider advises otherwise) ... Please update pt with what you prescribe in place of Farxiga, thanks Try [phone] land line (first) Then CELL [phone] vmx/mycharts are okay Remedios Gage, RN 12/28/2023 11:50 AM Signed Agree with recommendation. Continue Aldactazide Hold off on the Farxiga for now, unfortunately the alternative is also similarly expensive, but okay to hold off on this class of medication at this time Spoke to pt on phone, above information given with verbalized understanding Allergies As of Date: 12/28/2023 Noted Allergy Reaction HEPARIN 12/09/2014 14 - Other: See Comments Comments: HIT SULFA (SULFONAMIDE ANTIBIOTICS) 11/17/2011 2 - Rash Date Reviewed: 12/28/2023 Reviewed by: Randa Cunningham, LEONIDAS - Fully Assessed Reason for Visit: medication questions / cost issue [Other] Prescriptions as of 12/28/2023 - Magnesium 250 mg tab Take 250 mg by mouth once daily. - spironolactone-hctz 25/25 (ALDACTAZIDE) 25-25 mg per tablet Take 0.5 tablets by mouth once daily. - metoprolol succinate ER (TOPROL XL) 50 mg 24 hr tablet Take 1 tablet by mouth two times a day. - timolol/dorzolamide/lat anop/PF (CUNGERU-FGIULQIFGW-QYO ANOP,PF,) 0.5-2-0.005 % drop Use 1 Drop in eyes every evening. - atorvastatin (LIPITOR) 10 mg tablet Take 10 mg by mouth once daily. - cholecalciferol, Vitamin D3, (VITAMIN D3) 1,250 mcg (50,000 unit) cap capsule Take 50,000 Units by mouth one time a week. - levothyroxine (SYNTHROID) 75 mcg tablet Take 1 tablet by mouth daily before breakfast. - Amoxicillin 500 mg tablet Take 4 tablets by mouth 30-60 minutes before dental procedure - acetaminophen (TYLENOL) 325 mg tablet Take 2 tablets by mouth every 6 hours as needed for Pain (DO NOT EXCEED 4,000 MG IN 24 HOUR PERIOD). Facility-Administered Medications as of 12/28/2023 - perflutren lipid microspheres 1.3 mL in NaCl (PF) 0.9% 10 mL injection (DEFINITY) - sodium chloride 0.9 % (flush) 10 mL (BD POSIFLUSH) Meds Comments as of 12/07/2014: HTN Problem List As Of Date 12/28/2023 Noted Resolved Thoracic facet syndrome [M47.894] 11/17/2011 06/27/2023 Aortic stenosis [I35.0] 12/01/2014 Ascending aortic aneurysm (HCC) [I71.21] 12/02/2014 Pre-op testing [Z01.818] 11/19/2014 12/02/2014 Acute postoperative pain [G89.18] 12/02/2014 12/03/2014 Acute blood loss anemia [D62] 12/01/2014 12/03/2014 Thrombocytopenia (HCC) [D69.6] 12/02/2014 12/03/2014 Atelectasis/volume overload [J98.11] 12/02/2014 12/16/2014 SUMMARY [V999.95] 12/02/2014 Hyperlipidemia [E78.5] 12/02/2014 Stress hyperglycemia [R73.9] 12/03/2014 12/05/2014 Nausea [R11.0] 12/04/2014 12/06/2014 Hypothyroidism [E03.9] 12/04/2014 Stroke (cerebrum) (HCC) [I63.9] 12/07/2014 12/09/2014 Ischemic stroke diagnosed during current admiss*12/08/2014 12/09/2014 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] 12/09/2014 Change in mental status [R41.82] 12/09/2014 12/20/2014 Atrial flutter (HCC) [I48.92] 12/12/2014 06/27/2023 Anticoagulation management encounter [Z51.81, Z*12/18/2014 Axillary vein thrombosis (HCC) [I82.A19] 12/18/2014 Malnutrition of moderate degree (HCC) [E44.0] 12/24/2014 06/29/2021 Anemia [D64.9] 12/27/2014 Anticoagulation monitoring, special range [Z79.*01/03/2015 Vertigo of central origin [H81.4] 03/20/2015 Peripheral vertigo, unspecified [H81.399] 03/20/2015 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] 06/23/2015 Intercostal pain [R07.82] 12/24/2020 06/27/2023 THOMASON (dyspnea on exertion) [R06.09] 06/29/2021 S/P AVR (aortic valve replacement) and aortopla*06/29/2021 SVT (supraventricular tachycardia) ([facility]) [I47.1*12/27/2021 APC (atrial premature contractions) [I49.1] 12/27/2021 Venous (peripheral) insufficiency [I87.2] 06/27/2023 Primary hypertension [I10] 06/27/2023 Nonrheumatic tricuspid valve regurgitation [I36*12/27/2023 PVC (premature ventricular contraction) [I49.3] 12/27/2023 Acute on chronic diastolic heart failure (HCC) *more content not included)... Normal [facility] Basic metabolic 2000 panelon 12-27-2023 Anion gap [Moles/Vol] 11 mmol/L 9 - 18 mmol/L [facility] Calcium [Mass/Vol] 9.7 mg/dL 8.5 - 10. 2 mg/dL [facility] Chloride [Moles/Vol] 103 mmol/L 97 - 10 5 mmol/L [facility] CO2 [Moles/Vol] 29 mmol/L 22 - 30 mmol/L [facility] Creatinine [Mass/Vol] 1.09 mg/dL High 0.58 - 0.96 mg/dL [facility] Estimated Glomerular Filtration Rate 54 mL/min/1.73m Low >=60 mL/min/1.73m [facility] Glucose [Mass/Vol] 76 mg/dL 74 - 99 mg/dL [facility] Potassium [Moles/Vol] 4.3 mmol/L 3.7 - 5.1 mmol/L [facility] Sodium [Moles/Vol] 143 mmol/L 136 - 144 mmol/L [facility] Urea nitrogen [Mass/Vol] 24 mg/dL High 7 - 21 mg/dL [facility] Anion gap [Moles/Vol] 11 mmol/L Normal 9-18 [facility] Comment on above: Order Comment: Speci men Type: BLOOD SPECIMENOrdering Facility: [facility] Address: [address] [place] [address] Performed By: #### 2 4321-2 ####[facility] [id number] [place] [address] [place] Calcium [Mass/Vol] 9.7 mg/dL Normal 8.5-10.2 [facility] Comment on above: Order Comment: Speci men Type: BLOOD SPECIMENOrdering Facility: [facility] Address: [address] [place] [address] Performed By: #### 2 4321-2 ####[facility] [id number] [place] [address] [place] Chloride [Moles/Vol] 103 mmol/L Normal 97-105 [facility] Comment on above: Order Comment: Speci men Type: BLOOD SPECIMENOrdering Facility: [facility] Address: [address] [place] [address] Performed By: #### 2 4321-2 ####[facility] [id number] [place] [address] [place] CO2 [Moles/Vol] 29 mmol/L Normal 22-30 [facility] Comment on above: Order Comment: Speci men Type: BLOOD SPECIMENOrdering Facility: [facility] Address: [address] [place], [place] [address] Performed By: #### 2 4321-2 ####[facility] [id number] [place] [address] [place] Creatinine [Mass/Vol] 1.09 mg/dL High 0.58-0.96 [facility] Comment on above: Order Comment: Speci men Type: BLOOD SPECIMENOrdering Facility: [facility] Address: [address] [place] [address] Performed By: #### 2 4321-2 ####[facility] [id number] [place] [address] [place] Creatinine and Glomerular filtration rate.predicted panel (S/P/Bld) 54 mL/min/1.73m??? Low >=60 [facility] Comment on above: Order Comment: Brianda andres Type: BLOOD SPECIMENOrdering Facility: [facility] Address: [address] [place] [address] Result Comment: Felicia mated Glomerular Filtration Rate [...] reflect actual GFR. Performed By: #### 2 4321-2 ####[facility] [id number] [place] [address] [place] Glucose [Mass/Vol] 76 mg/dL Normal 74-99 [facility] Comment on above: Order Comment: Brianda mckenna Type: BLOOD SPECIMENOrdering Facility: [facility] Address: [address] [place] [address] Result Comment: The [place] Diabetes Association (ADA) provides guidance for cutoff [...] Standards of Medical Care in Diabetes 2016, [place] [employer]. Diabetes Care. 2016.39(Suppl 1). Performed By: #### 2 4321-2 ####[facility] [id number] [place] [address] [place] Potassium [Moles/Vol] 4.3 mmol/L Normal 3.7-5.1 [facility] Comment on above: Order Comment: Speci men Type: BLOOD SPECIMENOrdering Facility: [facility] Address: [address] [place] [address] Performed By: #### 2 4321-2 ####[facility] [id number] [place] [address] [place] Sodium [Moles/Vol] 143 mmol/L Normal 136-144 [facility] Comment on above: Order Comment: Speci men Type: BLOOD SPECIMENOrdering Facility: [facility] Address: [address] [place] [address] Performed By: #### 2 4321-2 ####[facility] [id number] [place] [address] [place] Urea nitrogen [Mass/Vol] 24 mg/dL High 7-21 [facility] Comment on above: Order Comment: Speci men Type: BLOOD SPECIMENOrdering Facility: [facility] Address: [address] [place] [address] Performed By: #### 2 4321-2 ####[facility] [id number] [place] [address] [place] CNOVon 12-27-2023 CNOV Office Visit (DIKC ) LESVIA RAMOS I ([id number]) 1950 F Date Time Provider Department 12/27/23 10:00 AM ANDRES BOYD During your visit today, we recorded the following information about you: Pulse Blood pressure Weight 69/minute 114/55 59.9 kg Andres Boyd MD 12/27/2023 10:28 AM Signed [facility] CARDI[facility]Y OUTPATIENT VISIT DATE December 27, 2023 OUTPATIENT VISIT TYPE ESTABLISHED PRIMARY CARE PHYSICIAN: Rachael Canela, DO [address] [place] [address] CHIEF COMPLAINT: Follow-up Last visit with me: May 2023 HISTORY OF PRESENT ILLNESS: Ms. Ramos is a 73 year old female, seen in cardiology clinic today to for follow-up. Since last visit, Doing well, palpitations helped with higher dose of metoprolol Otherwise denies any new cardiovascular symptoms today Diet: Overall well balanced. Otherwise she denies [...] since then, but intermittent palpitations. Moderate TR PHYSICAL EXAMINATION: BP 114/55 Pulse 69 Wt 59.9 kg (132 lb) BMI 22.66 kg/m? General: No acute distress, appears comfortable HEENT: no bruits, TR pulsations noted today Pulmonary/chest: CTA b/L. CVS: Normal S1 and S2, Regular rhythm, normal rate. Soft 2/6 early systolic murmur, RUSB. Central and peripheral pulses 2+ B/L, no carotid or abdominal bruits. Abdomen: Soft, non-tender, non-distended. Bowel sounds normal Extremities: skin changes consistent with chronic venous insufficiency, wearing compressions, 1+ edema to above ankle Neuro: AAOx4 Psych: Normal mood and affect EKG done in clinic and I personally reviewed today. Normal sinus rhythm, frequent premature ventricular complexes in a pattern of bigeminy. Septal infarct, old Echocardiogram today, December 27, 2023 reviewed and discussed with patient. LVEF 66%, grade 2 diastolic dysfunction, dilated RV, moderate, 2-3+ tricuspid regurgitation, gradients across the aortic valve 17/9 mmHg with DVI of 0.51. RVSP 30 mmHg. PAST MEDICAL HISTORY Diagnosis Date Aortic stenosis [...] HIT Sulfa (Sulfonamide * Rash CURRENT MEDICATIONS: Magnesium 250 mg tabTake 250 mg by mouth once daily.Disp: Rfl: metoprolol succinate ER (TOPROL XL) 50 mg 24 hr tabletTake 1 tablet by mouth two times a day.Disp: 180 tabletRfl: 3 timolol/dorzolamide/lat anop/PF (IMEWAZL-VGCFORXIRO-HAB ANOP,PF,) 0.5-2-0.005 % dropUse 1 Drop in eyes every evening.Disp: Rfl: hydroCHLOROthiazide (HYDRODIURIL, ESIDRIX) 12.5 mg capsuleTake 1 capsule by mouth daily after breakfast.Disp: 90 capsuleRfl: 3 atorvastatin (LIPITOR) 10 mg tabletTake 10 mg by mouth once daily.Disp: Rfl: cholecalciferol, Vitamin D3, (VITAMIN D3) 1,250 mcg (50,000 unit) cap capsuleTake 50,000 Units by mouth one time a week.Disp: Rfl: levothyroxine (SYNTHROID) 75 mcg tabletTake 1 tablet by mouth daily before breakfast.Disp: 90 tabletRfl: 3 Amoxicillin 500 mg tabletTake 4 tablets by mouth 30-60 minutes before dental procedureDisp: 4 tabletRfl: 11 acetaminophen (TYLENOL) 325 mg tabletTake 2 tablets by mouth every 6 hours as needed for Pain (DO NOT EXCEED 4,000 MG IN 24 HOUR PERIOD).Disp: Rfl: IMPRESSION/RECOMMENDATI ONS: S/p AVR and aortic root repair for bicuspid aortic valve 11/2014. Echocardiogram today, December 27, 2023 reviewed and discussed with patient.-LVEF around 66 %, RV is mildly dilated and there is moderate TR, normal RA pressure. This is new compared to prior echocardiogram. Prosthetic aortic valve functioning well. Pre-op cath 2014 with angio (more content not included)... Normal [facility] ECG COMPLETEon 12-27-2023 Atrial Rate 70 BPM [facility] Calculated P Martin 70 degrees [facility] Calculated R Martin 84 degrees [facility] Calculated T Martin 66 degrees [facility] P-R Interval 172 ms [facility] QRS Duration 86 ms [facility] QT Interval 414 ms [facility] QTC Calculation (Bazett) 447 ms [facility] Ventricular Rate 70 BPM [facility] ECG COMPLETE Ventricular Rate : 7 0 BPM Atrial Rate : 70 BPM P-R Interval : 172 ms QRS Duration : 86 ms Q-T Interval : 414 ms QTC Calculation(Bazett) : 447 ms Calculated P Martin : 70 degrees Calculated R Martin : 84 degrees Calculated T Martin : 66 degrees SINUS RHYTHM WITH MARKED SINUS ARRHYTHMIA WITH FREQUENT PREMATURE VENTRICULAR COMPLEXES , AGE UNDETERMINED ABNORMAL ECG Confirmed by Sonia STARK RAVISANKAR ([id number]) on 12/27/2023 7:21:05 PM NAME : LESVIA RAMOS PID : [id number] : 1950 Gender : Female Race : ORD : [id number] Procedure Date : Dec 27 2023 09:42:53 Edit Date : Dec 27 2023 19:21:12 Diagnosis: SINUS RHYTHM WITH MARKED SINUS ARRHYTHMIA WITH FREQUENT PREMATURE VENTRICULAR COMPLEXES , AGE UNDETERMINED ABNORMAL ECG Confirmed by Sonia STARK RAVISANKAR ([id number]) on 12/27/2023 7:21:05 PM Test Reason : Z95.2 S/P AVR (aortic valve replacement) and aortoplasty Location : 145 : [place] Overread By : Sonia STARK RAVISANKAR Edited By : Sonia STARK RAVISANKAR Referred By : ANDRES BOYD Acquired by : whitney, Normal [facility] ECHOon 12-27-2023 Echocardiography Echocardiography Report: Transthoracic Echo [facility] Date of service: 12/27/2023 9:03:01 AM 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 LESVIA RAMOS : 1950 Age: 73 years Gender: F History of valvular heart disease. Previous cardiovascular interventions: Aortic valve replacement (12/01/14) : C-E #23 Ascending aneurysm repair (12/01/14) Primary rhythm: sinus. Secondary rhythm: PVC. Height: 162.60 cm BSA: 1.63 m Weight: 58.97 kg BMI: 22.3 kg/m Heart rate 74 bpm Blood pressure 114/55 mmHg Color Doppler was utilized to interrogate the cardiac valves assessed and spectral Doppler was utilized to determine the flow velocities and pressure gradients reported in this exam. MEASUREMENTS: Value Indexed Normal Max aortic dimension 3.0 cm Ao < 3.8 Left atrial volume 60 ml (biplane A-L) 37 ml/m Cher <= 34 LV ID (diastole) 3.0 cm (2D) 1.81 cm/m LV ID (systole) 1.9 cm (2D) 1.14 cm/m IVS, leaflet tips 1.1 cm (2D) Posterior wall thickness 1.1 cm (2D) Left ventricular mass 94 g (2D) 57 g/m LV stroke volume 40 ml (2D biplane) LV end diastolic volume 61 ml (2D biplane) 37.3 ml/m 29<=EDVi<62 LV end systolic volume 20 ml (2D biplane) 12.6 ml/m Ejection Fraction 66 % (2D biplane) EF > 54 FINDINGS: LEFT VENTRICLE The left ventricle is normal in size. There is mild concentric left ventricular hypertrophy. Left ventricular systolic function is normal. Grade II left ventricular diastolic dysfunction. Mitral annular lateral E/e': 12.5. Mitral annular septal E/e': 15.8. Wall Motion: All scored segments are normal. RIGHT VENTRICLE The right ventricle is dilated. Right ventricular systolic function is normal. RV systolic tissue Doppler velocity is 13.6 cm/s. Tricuspid annular displacement is 1.9 cm. Estimated right ventricular systolic pressure is 30 mmHg consistent with normal pulmonary artery pressures. Estimated right atrial pressure is 3 mmHg based on IVC assessment. LEFT ATRIUM The left atrial cavity is mildly dilated. Pulmonary Veins: The pulmonary venous pattern showed normal systolic flow. RIGHT ATRIUM The right atrial cavity is dilated. Inferior Vena Cava: The inferior vena cava appears normal measuring 2.0 cm. The vessel decreases greater than 50 percent with inspiration. MITRAL VALVE There is moderate mitral annular calcification observed posterior. There is trace mitral valve regurgitation. There is mild thickening. The peak mitral valve gradient is 5 mmHg. The mean mitral valve gradient is 2 mmHg. The pressure half time is 54 msec. The peak mitral E/A ratio is 0.84. The average mitral E/e' ratio is 14.1. The mitral flow deceleration time is 186 msec. TRICUSPID VALVE There is moderate (2+ - 3+) tricuspid valve regurgitation caused by annular dilatation. There is mild thickening. The hepatic venous pattern showed normal systolic flow. AORTIC VALVE Doris-Tee prosthetic valve size #23. There is trace aortic valve regurgitation. The peak gradient is 17 mmHg (peak velocity = 207.0 cm/s). The mean gradient is 9 mmHg. The LVOT mean velocity is 65.4 cm/s. The aortic VTI is 44.9 cm. The mean velocity in the aortic valve is 136.0 cm/s. The dimensionless valve index is 0.51. PULMONIC VALVE There is trace pulmonic valve regurgitation. There is no thickening. AORTA The visualized aorta is normal in size. Measurements - Mid ascending aorta 2.1 cm. Distal ascending aorta 3.0 cm. PULMONARY ARTERIES The main pulmonary artery is normal in size. The main pulmonary artery diameter is 1.9 cm (diastolic). INTERVENTRICULAR SEPTUM There is abnormal motion of the interventricular septum secondary to prior cardiac surgery. CONCLUSIONS: - Exam indication: SVT - The left ventricle is normal in size. There is mild concentric left ventricular hypertrophy. Left ventricular systolic function is normal. EF = 66 5% (2D biplane) Grade II left ventricular diastolic dysfunction. - The right ventricle is dilated. Right ventricular systolic function is normal. - The left atrial cavity is mildly dilated. - The right atrial cavity is dilated. - There is moderate (2+ - 3+) tricuspid valve regurgitation caused by annular dilatation. - Doris-Tee prosthetic aortic valve (size #23). There is trace aortic valve regurgitation. The peak gradient is 17 mmHg, the mean gradient is 9 mmHg and the dimensionless valve index is 0.51. Prior pk/mn gradients were 17/9 mmHg. - Estimated right ventricular systolic pressure is 30 mmHg consistent with normal pulmonary artery pressures. Estimated right atrial pressure is 3 mmHg based on IVC assessment. -Frequent ventricular ectopies throughout the study. - Exam was compared with the prior echocardiographic exam performed on 8 (more content not included)... Normal [facility] DEXA SCAN CENTRAL SKELETALon 12-26-2023 DEXA SCAN CENTRAL SKELETAL DEXA SCAN CENTRAL SKELETAL *ADDENDUM*The current National Osteoporosis Foundation guide recommends treating patients with FRAX ten year risk scores of greater than or equal to 3% for hip fracture or greater than or equal to 20% for major osteoporotic fracture, to reduce their fracture risk. Finalized by Jossy Cunningham MD on 12/26/2023 3:04 PM Normal [facility] MM screening mammo BI w/CADo n 12-20-2023 MM screening mammo BI w/CAD [facility] Main [place] [address] [place] [address] Mammography Report Signed Patient: Lesvia Ramos MR#: [id number] : 1950 Acct:[id number] Age/Sex: 73 / F ADM Date: 12/20/23 Loc: CT Room: Type: [facility] Attending Dr: Referral Self Copies to: Rachael Canela DO SELF,REFERRAL Carlos King DO Ordering Provider: SELF,REFERRAL Date of Service: 12/20/23 MM/MM screening mammo BI w/CAD: SCREENING CLINICAL DATA: Screening for malignancy. BILATERAL SCREENING MAMMOGRAMS - FULL FIELD DIGITAL WITH TOMOSYNTHESIS AND CAD Tomosynthesis craniocaudal and mediolateral oblique views of both breasts were obtained using low- dose digital technique. Comparison is made to prior studies from September 10, 2018 through September 12, 2022. This examination was reviewed with the aid of CAD. There are scattered fibroglandular densities. There are multiple benign, predominantly secretory calcifications. There are no developing masses, typically malignant [...] next mammogram. Impression dictated by: Lorene Spencer M.D.12/20/2023 3:34 PM Dictation Location: [facility] Transcribed By: AYANNA 12/20/23 1534 Dictated By: Lorene Spencer MD 12/20/23 1529 Signed By: 12/20/23 1534 [facility] [place]enson 11-29-2023 Screens [id number] [facility] Ambulatory Visit Summaryon 0 11-28-2023 Ambulatory Visit Summary LESVIA RAMOS I :1950 Visit Date:11/28/2023 Ambulatory Visit Instructions Your Diagnosis History of renal stone Your Care Team Attending Physician - DAT Bustillos APRN, Radha Guo Primary Care Physician - RACHAEL CANELA DO This Is Your Medications List atorvastatin (atorvastatin 10 mg Tab) ergocalciferol (Vitamin D2 2000 intl units oral capsule) hydrochlorothiazide (hydrochlorothiazide 12.5 mg Cap) latanoprost ophthalmic (latanoprost Opth 0.005% Jeanie) levothyroxine metoprolol (metoprolol 25 mg ER Tab) Procedures Performed CE - Cataract extraction (2021), AVR - Aortic valve replacement (10/30/2014), Colonoscopy. 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 Abdominal pain Gross hematuria History of renal stone Hydronephrosis with ureteral calculus Renal stone Right flank pain Stress incontinence Historical - Any problem that you are no longer receiving treatment for. AF - Atrial fibrillation Arthritis Heart murmur Hypertension Patient Survey You may receive a survey via text or e-mail asking about your office visit. Please share your experience with us by completing your survey. We appreciate your feedback and thank you for choosing us for your care. [facility] Patient Educationon 11-28-19 Patient Education Nephrology Dietary Guidelines to Help Prevent Kidney Stones Kidney stones are deposits of minerals and salts that form inside your kidneys. Your risk of developing kidney stones may be greater depending on your diet, your lifestyle, the medicines you take, and whether you have certain medical conditions. Most people can lower their risks of developing kidney stones by following these dietary guidelines. Your dietitian may give you more specific instructions depending on your overall health and the type of kidney stones you tend to develop. What are tips for following this plan? Reading food labels ? Choose foods with no salt added or low-salt labels. Limit your salt (sodium) intake to less than 1,500 mg a day. ? Choose foods with calcium for each meal and snack. Try to eat about 300 mg of calcium at each meal. Foods that contain 200?500 mg of calcium a serving include: ? 8 oz (237 mL) of milk, fvologf-krpbchnyqooz-bw iry milk, and calcium-fortifiedfruit juice. Calcium-fortified means that calcium has been added to these drinks. ? 8 oz (237 mL) of kefir, yogurt, and soy yogurt. ? 4 oz (114 g) of tofu. ? 1 oz (28 g) of cheese. ? 1 cup (150 g) of dried figs. ? 1 cup (91 g) of cooked broccoli. ? One 3 oz (85 g) can of sardines or mackerel. Most people need 1,000?1,500 mg of calcium a day. Talk to your dietitian about how much calcium is recommended for you. Shopping ? Buy plenty of fresh fruits and vegetables. Most people do not need to avoid fruits and vegetables, even if these foods contain nutrients that may contribute to kidney stones. ? When shopping for convenience foods, choose: ? Whole pieces of fruit. ? Pre-made salads with dressing on the side. ? Low-fat fruit and yogurt smoothies. ? Avoid buying frozen meals or prepared deli foods. These can be high in sodium. ? Look for foods with live cultures, such as yogurt and kefir. ? Choose high-fiber grains, such as whole-wheat breads, oat bran, and wheat cereals. Cooking ? Do not add salt to food when cooking. Place a salt shaker on the table and allow each person to add their own salt to taste. ? Use vegetable protein, such as beans, textured vegetable protein (TVP), or tofu, instead of meat in pasta, casseroles, and soups. Meal planning ? Eat less salt, if told by your dietitian. To do this: ? Avoid eating processed or pre-made food. ? Avoid eating fast food. ? Eat less animal protein, including cheese, meat, poultry, or fish, if told by your dietitian. To do this: ? Limit the number of times you have meat, poultry, fish, or cheese each week. Eat a diet free of meat at least 2 days a week. ? Eat only one serving each day of meat, poultry, fish, or seafood. ? When you prepare animal proteins, cut pieces into small portion sizes. For most meat and fish, one serving is about the size of the palm of your hand. ? Eat at least five servings of fresh fruits and vegetables each day. To do this: ? Keep fruits and vegetables on hand for snacks. ? Eat one piece of fruit or a handful of berries with breakfast. ? Have a salad and fruit at lunch. ? Have two kinds of vegetables at dinner. ? You may be told to limit foods that are high in a substance called oxalate. These include: ? Spinach (cooked), rhubarb, beets, sweet potatoes, and Dutch chard. ? Peanuts. ? Potato chips, libyan fries, and baked potatoes with skin on. ? Nuts and nut products. ? Chocolate. ? If you regularly take a diuretic medicine, make sure to eat at least 1 or 2 servings of fruits or vegetables that are high in potassium each day. These include: ? Avocado. ? Banana. ? [place], prune, carrot, or tomato juice. ? Baked potato. ? Cabbage. ? Beans and split peas. Lifestyle ? Drink enough fluid to keep your urine pale yellow. This is the most important thing you can do. Spread your fluid intake throughout the day. ? If you drink alcohol: ? Limit how much you have to: ? 0?1 drink a day for women who are not . ? 0?2 drinks a day for men. ? Know how much alcohol is in your drink. In the [place] one drink equals one 12 oz bottle of beer (355 mL), one 5 oz glass of wine (148 mL), or one 1? oz glass of hard liquor (44 mL). ? Lose weight if told by your health care provider. Work with your dietitian to find an eating plan and weight loss strategies that work best for you. General information ? Talk to your health care provider and dietitian about taking daily supplements. Depending on your health and the cause of your kidney stones, you may be told: ? Do not take high-dose supplements of vitamin C (1,000 mg a day or more). ? To take a calcium supplement. ? To take a daily probiotic supplement. ? To take other supplements such as magnesium, fish oil, or vitamin B6. ? Take iwxo-ylc-szsurqc and prescription medicines only as told by your health care provider. These include supplements. What foods sh (more content not included)... Normal [facility] Urology Office/Clinic Noteon 11-28-2023 Urology Office/Clinic Note Chief Complaint 1yr KUB HPI Staff PRW pt 1yr KUB DX: Hx of Renal Stone & Stress Incontinence KUB 11/24/23 Denies symptoms of kidney stones since last encounter. Has been increasing water intake. Minimal leaking with coughing & sneezing. Wears a pad for protection. Not bothersome. No concerns at this time. History of Present Illness I have reviewed and verified the staff HPI to be accurate for this encounter. Review of Systems PHQ Score Initial Depression Screen Score: 0 SCORE Physical Exam Vitals & Measurements HR: 72(Peripheral) RR: 16 BP: 141/91 HT: 64 in HT: 162 cm WT: 63.7 kg WT: 140.14 lb BMI: 24.27 General: Well developed, well nourished, in no acute distress. Genitourinary: Flank Pain: none. Bladder: nonpalpable Assessment/Plan BBSQ 8 1. History of renal stone (Z87.442: Personal history of urinary calculi) Pt had first and only stone episode 05/2020. Was able to pass on her own. UA today w/o signs of infection or blood. Denies stone episode, urinary infection, or gross hematuria since last visit. KUB 11/24/23 - negative for stones Discussed generalized stone prevention - pt encouraged to increase fluid intake so that he/she producing 2.5L of urine daily. Add 1/4 cup of lemon juice to water throughout the day or can also drink sugar free lemonade or clear soda. Avoid dark hardy. Restrict sodium intake. Restrict animal protein. Pt w/o stones in last 3 yrs. Discussed f/u PRN vs continued monitoring. Pt prefers to continue to monitor for stones for her peace of mind. -f/u 1 yr w/ KUB, sooner if needed. Recall placed. Ordered: Urnls Dip Stick Auto w/o Microscopy POC 51262 XR Abdomen 1 View 2. Stress incontinence (N39.3: Stress incontinence (female) (male)) Admits to mild leaking with coughing/sneezing. Does wear a pad for protection, but rarely needs to change it. Sxs not bothersome at this time. 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 Never Smokeless Tobacco Use:. Household tobacco concerns: No. Yes, 11/28/2023 Family History Family history is unknown Immunizations Vaccine Date Status Comments influenza virus vaccine, inactivated 09/26/2023 Recorded influenza virus vaccine, inactivated 08/31/2022 Recorded SARS-CoV-2 (COVID-19) [id number] 08/16/2022 Recorded SARSCoV2 mRNA(bjpemmqcs-wave-oaq ros) vac 02/17/2022 Recorded influenza virus vaccine, inactivated 09/02/2021 Recorded SARS-CoV-2 (COVID-19) mRNA BNT-162b2 vax 08/04/2021 Recorded SARS-CoV-2 (COVID-19) mRNA BNT-162b2 vax 12/17/2020 Recorded 2023-11-28: TPV70 SARS-CoV-2 (COVID-19) mRNA BNT-162b2 vax 11/26/2020 Recorded 2023-11-28: TPV70 influenza virus vaccine, inactivated 07/30/2020 Recorded influenza virus vaccine, inactivated 07/05/2020 Recorded influenza virus vaccine, inactivated 08/21/2019 Recorded zoster vaccine live 07/02/2019 Recorded zoster vaccine, inactivated 04/29/2019 Recorded influenza virus vaccine, inactivated 10/01/2018 Recorded diphtheria/pertussis, acel/tetanus adult 07/17/2017 Recorded influenza virus vaccine, inactivated 01/11/2017 Recorded pneumococcal 23-valent vaccine 06/23/2016 Recorded influenza virus vaccine, inactivated 09/29/2015 Recorded pneumococcal 23-valent vaccine 11/03/2014 Recorded zoster vaccine live 10/06/2014 Recorded influenza virus vaccine, inactivated 09/24/2014 Recorded influenza virus vaccine, inactivated 08/04/2014 Recorded pneumococcal 23-valent vaccine 07/30/2014 Recorded hepatitis B adult vaccine 03/20/2001 Recorded hepatitis B adult vaccine 10/19/2000 Recorded hepatitis B adult vaccine 09/19/2000 Recorded Lab Results Ambulatory Point of Care Results Bilirubin Urine Dipstick: Negative (11/28/23 10:58:00) Blood Urine Dipstick: Negative (11/28/23 10:58:00) Glucose Urine Dipstick: Negative (11/28/23 10:58:00) Ketones Urine Dipstick: Negative (11/28/23 10:58:00) Leukocytes Urine Dipstick: Negative (11/28/23 10:58:00) Nitrit (more content not included)... Normal [facility] Comment on above: Result Comment: Elec tronically Signed By: DAT Bustillos APRN, Radha Guo\.br\Date and Time Signed: 11/28/23 11:49 EST RAD - MISCon 11-27-2023 RAD - MISC [id number] FF Normal [facility] CBC panel Auto (Bld)on 06-27 Erythrocyte distribution width (RBC) [Ratio] 12.0 % 11.5 - 15.0 % [facility] Hematocrit (Bld) [Volume fraction] 46.3 % High 36.0 - 46.0 % [facility] Hemoglobin (Bld) [Mass/Vol] 15.2 g/dL 11.5 - 15.5 g/dL [facility] MCH (RBC) [Entitic mass] 32.3 pg 26.0 - 34.0 pg [facility] MCHC (RBC) [Mass/Vol] 32.8 g/dL 30.5 - 36.0 g/dL [facility] MCV (RBC) [Entitic vol] 98.5 fL 80.0 - 100.0 fL [facility] Nucleated RBC (Bld) [#/Vol] <0.01 k/uL [facility] Platelet mean volume (Bld) [Entitic vol] 11.4 fL 9.0 - 12.7 fL [facility] Platelets (Bld) [#/Vol] 144 10*3/uL Low 150 - 400 k/uL [facility] RBC (Bld) [#/Vol] 4.70 10*6/uL 3.90 - 5.2 0 m/uL [facility] WBC (Bld) [#/Vol] 6.26 10*3/uL 3.70 - 11. 00 k/uL [facility] Erythrocyte distribution width (RBC) [Ratio] 12.0 % Normal 11.5-15.0 [facility] Comment on above: Order Comment: Speci men Type: BLOOD SPECIMENOrdering Facility: [facility] Address: [address] [address] Performed By: #### 5 8410-2 ####[facility] LABIA [id number] [address] [place] Hematocrit (Bld) [Volume fraction] 46.3 % High 36.0-46.0 [facility] Comment on above: Order Comment: Speci men Type: BLOOD SPECIMENOrdering Facility: [facility] Address: [address] [address] Performed By: #### 5 8410-2 ####[facility]IA [id number] [address] [place] Hemoglobin (Bld) [Mass/Vol] 15.2 g/dL Normal 11.5-15.5 [facility] Comment on above: Order Comment: Speci men Type: BLOOD SPECIMENOrdering Facility: [facility] Address: [address] Performed By: #### 5 8410-2 ####[facility] LABIA [id number] [address] [place] MCH (RBC) [Entitic mass] 32.3 pg Normal 26.0-34.0 [facility] Comment on above: Order Comment: Speci men Type: BLOOD SPECIMENOrdering Facility: [facility] Address: [address] Performed By: #### 5 8410-2 ####[facility] LABIA [id number] [address] [place] MCHC (RBC) [Mass/Vol] 32.8 g/dL Normal 30.5-36.0 [facility] Comment on above: Order Comment: Speci men Type: BLOOD SPECIMENOrdering Facility: [facility] Address: [address] Performed By: #### 5 8410-2 ####[facility] LABIA [id number] [place] [address] [place] MCV (RBC) [Entitic vol] 98.5 fL Normal 80.0-100.0 [facility] Comment on above: Order Comment: Speci men Type: BLOOD SPECIMENOrdering Facility: [facility] Address: [address] [place], [place] [address] Performed By: #### 5 8410-2 ####[facility]IA [id number] [place] [address] [place] Nucleated RBC (Bld) [#/Vol] 10*3/uL Normal <0.01 [facility] Comment on above: Order Comment: Speci men Type: BLOOD SPECIMENOrdering Facility: [facility] Address: [address] [place], [place] [address] Performed By: #### 5 8410-2 ####[facility] [id number] [place] [address] [place] Platelet mean volume (Bld) [Entitic vol] 11.4 fL Normal 9.0-12.7 [facility] Comment on above: Order Comment: Speci men Type: BLOOD SPECIMENOrdering Facility: [facility] Address: [address] [place], [place] [address] Performed By: #### 5 8410-2 ####[facility] [id number] [place] [address] [place] Platelets (Bld) [#/Vol] 144 10*3/uL Low 150-400 [facility] Comment on above: Order Comment: Speci men Type: BLOOD SPECIMENOrdering Facility: [facility] Address: [address] [place], [place] [address] Performed By: #### 5 8410-2 ####[facility] [id number] [place] [address] [place] RBC (Bld) [#/Vol] 4.70 10*6/uL Normal 3.90-5.20 [facility] Comment on above: Order Comment: Speci men Type: BLOOD SPECIMENOrdering Facility: [facility] Address: [address] [place] [address] Performed By: #### 5 8410-2 ####[facility] LABCLIA [id number] [address] [place] WBC (Bld) [#/Vol] 6.26 10*3/uL Normal 3.70-11.00 [facility] Comment on above: Order Comment: Speci men Type: BLOOD SPECIMENOrdering Facility: [facility] Address: [address] [place] [address] Performed By: #### 5 8410-2 ####[facility] LABCLIA [id number] [address] [place] CNOVon 06-27-2023 CNOV Office Visit (DEYSILO ) LESVIA RAMOS I ([id number]) 1950 F Date Time Provider Department 06/27/23 9:00 AM ANDRES BOYD During your visit today, we recorded the following information about you: Pulse Blood pressure Weight 69/minute 140/82 59 kg Andres Boyd MD 06/27/2023 9:33 AM Signed [facility] SECTION OF REGIONAL CARDIOLOGY OUTPATIENT VISIT DATE June 27, 2023 OUTPATIENT VISIT TYPE ESTABLISHED PRIMARY CARE PHYSICIAN: Rachael Canela DO [address] [place] [address] CHIEF COMPLAINT: Follow-up Last visit with me: [...] HIT Sulfa (Sulfonamide * Rash CURRENT MEDICATIONS: timolol/dorzolamide/lat anop/PF (IHPQWRQ-RALTSNOFYS-EIR ANOP,PF,) 0.5-2-0.005 % drop Use 1 Drop in eyes every evening. hydroCHLOROthi (more content not included)... Normal [facility] Comprehensive metabolic 2000 panelon 06-27-2023 Albumin [Mass/Vol] 4.2 g/dL Normal 3.9-4.9 [facility] Comment on above: Order Comment: Speci men Type: BLOOD SPECIMENOrdering Facility: [facility] Address: [address] [place] [id number] Performed By: #### 2 4323-8 ####[facility] LABCLIA [id number] [place] [address] [place] ALP [Catalytic activity/Vol] 78 U/L Normal 34-123 [facility] Comment on above: Order Comment: Speci men Type: BLOOD SPECIMENOrdering Facility: [facility] Address: [address] [place] [address] Performed By: #### 2 4323-8 ####[facility] LABCLIA [id number] [place] [address] [place] ALT [Catalytic activity/Vol] 24 U/L Normal 7-38 [facility] Comment on above: Order Comment: Speci men Type: BLOOD SPECIMENOrdering Facility: [facility] Address: [address] [place] [address] Performed By: #### 2 4323-8 ####[facility] LABCLIA [id number] [place] [address] [place] Anion gap [Moles/Vol] 10 mmol/L Normal 9-18 [facility] Comment on above: Order Comment: Speci men Type: BLOOD SPECIMENOrdering Facility: [facility] Address: [address] [place] [address] Performed By: #### 2 4323-8 ####[facility] LABCLIA [id number] [place] [address] [place] AST [Catalytic activity/Vol] 24 U/L Normal 13-35 [facility] Comment on above: Order Comment: Speci men Type: BLOOD SPECIMENOrdering Facility: [facility] Address: [address] [place] [address] Performed By: #### 2 4323-8 ####[facility] LABCLIA [id number] [place] [address] [place] Bilirubin [Mass/Vol] 0.7 mg/dL Normal 0.2-1.3 [facility] Comment on above: Order Comment: Speci men Type: BLOOD SPECIMENOrdering Facility: [facility] Address: [address] Performed By: #### 2 4323-8 ####[facility] LABCLIA [id number] [place] [address] [place] Calcium [Mass/Vol] 9.7 mg/dL Normal 8.5-10.2 [facility] Comment on above: Order Comment: Speci men Type: BLOOD SPECIMENOrdering Facility: [facility] Address: [address] Performed By: #### 2 4323-8 ####[facility] LABCLIA [id number] [place] [address] [place] Chloride [Moles/Vol] 104 mmol/L Normal 97-105 [facility] Comment on above: Order Comment: Speci men Type: BLOOD SPECIMENOrdering Facility: [facility] Address: [address] Performed By: #### 2 4323-8 ####[facility] LABCLIA [id number] [place] [address] [place] CO2 [Moles/Vol] 28 mmol/L Normal 22-30 [facility] Comment on above: Order Comment: Speci men Type: BLOOD SPECIMENOrdering Facility: [facility] Address: [address] Performed By: #### 2 4323-8 ####[facility] LABCLIA [id number] [place] [address] [place] Creatinine [Mass/Vol] 0.85 mg/dL Normal 0.58-0.96 [facility] Comment on above: Order Comment: Speci men Type: BLOOD SPECIMENOrdering Facility: [facility] Address: [address] Performed By: #### 2 4323-8 ####[facility] LABCLIA [id number] [place] [address] [place] Creatinine and Glomerular filtration rate.predicted panel (S/P/Bld) 73 mL/min/1.73m??? Normal >=60 [facility] Comment on above: Order Comment: Brianda andres Type: BLOOD SPECIMENOrdering Facility: [facility] Address: [address] [place] [address] Result Comment: Felicia mated Glomerular Filtration Rate [...] actual GFR. Performed By: #### 2 4323-8 ####[facility] LABCLIA [id number] [place] [address] [place] Glucose [Mass/Vol] 84 mg/dL Normal 74-99 [facility] Comment on above: Order Comment: Brianda andres Type: BLOOD SPECIMENOrdering Facility: [facility] Address: [address] [place] [address] Result Comment: The [place] Diabetes Association (ADA) provides guidance for cutoff [...] Standards of Medical Care in Diabetes 2016, [place] [employer]. Diabetes Care. 2016.39(Suppl 1). Performed By: #### 2 4323-8 ####[facility] LABIA [id number] [place] [address] [place] Potassium [Moles/Vol] 4.5 mmol/L Normal 3.7-5.1 [facility] Comment on above: Order Comment: Speci men Type: BLOOD SPECIMENOrdering Facility: [facility] Address: [address] Performed By: #### 2 4323-8 ####[facility] LABCLIA [id number] [place] [address] [place] Protein [Mass/Vol] 6.3 g/dL Normal 6.3-8.0 [facility] Comment on above: Order Comment: Speci men Type: BLOOD SPECIMENOrdering Facility: [facility] Address: [address] [place], [place] [address] Performed By: #### 2 4323-8 ####[facility] LABCLIA [id number] [place] [address] [place] Sodium [Moles/Vol] 142 mmol/L Normal 136-144 [facility] Comment on above: Order Comment: Speci men Type: BLOOD SPECIMENOrdering Facility: [facility] Address: [address] [place], [place] [address] Performed By: #### 2 4323-8 ####[facility] LABCLIA [id number] [place] [address] [place] Urea nitrogen [Mass/Vol] 18 mg/dL Normal 7-21 [facility] Comment on above: Order Comment: Speci men Type: BLOOD SPECIMENOrdering Facility: [facility] Address: [address] Performed By: #### 2 4323-8 ####[facility] LABCLIA [id number] [place] [address] [place] ECG COMPLETEon 06-27-2023 ECG COMPLETE Ventricular Rate : 6 9 BPM Atrial Rate : 85 BPM P-R Interval : 198 ms QRS Duration : 86 ms Q-T Interval : 396 ms QTC Calculation(Bazett) : 424 ms Calculated P Martin : 79 degrees Calculated R Martin : 85 degrees Calculated T Martin : 56 degrees SINUS RHYTHM WITH MARKED SINUS ARRHYTHMIA ABNORMAL ECG Confirmed by MERON MARTINI M.D. ([id number]) on 06/29/2023 2:57:41 PM NAME : LESVIA RAMOS PID : [id number] : 1950 Gender : Female Race : ORD : [id number] Procedure Date : Jun 27 2023 08:52:22 Edit Date : Jun 29 2023 14:57:43 Diagnosis: SINUS RHYTHM WITH MARKED SINUS ARRHYTHMIA ABNORMAL ECG Confirmed by MERON MARTINI M.D. ([id number]) on 06/29/2023 2:57:41 PM Test Reason : [facility] Over[facility] By : MERON MARTINI M.D. Edited By : MERON MARTINI M.D. Referred By : ANDRES BOYD Acquired by : Roopa olson [facility] CNOVon 05-30-2023 CNOV Office Visit (ORAVON ) LESVIA RAMOS I ([id number]) 1950 F Date Time Provider Department 05/30/23 9:30 AM INDIGO SALDAÑA During your visit today, we recorded the following information about you: Indigo Saldaña DO 05/30/2023 10:40 AM Signed Lesvia Ramos [...] Diagnosis Date Aortic stenosis Ascending aortic aneurysm ([facility]) Degenerative disc disease, lumbar Heart murmur Hypertension Hypothyroidism Osteopenia Stroke (cerebrum) ([facility]) 12/07/2014 SOCIAL HISTORY: Tobacco Use: Never PHYSICAL [...] subacromial bursa Informed Consent Consent Obtained: Verbal [place] Protocol A moment to CARE was completed. [...] Reaction HEPARIN 12/09/2014 14 - Other: See Zuri (more content not included)... Normal [facility] XR SHLDR >/=3V AP/SAAD AP/OTH R [...] IMPRESSION: Calcific tendinosis and minimal degenerative change. Communication Clerk: PSCB Transcribe Date/Time: May 30 2023 9:40A Dictated by : JOSSY BENAVIDES MD This examination was interpreted and the report reviewed and electronically signed by: JOSSY BENAVIDES MD on May 30 2023 9:40AM EST [id number] Normal [facility] XR SHOULDER GENERAL 3V OR MO RE AP/TRUE AP/OTHER LEFTon 05-30-2023 [facility] Basic metabolic 2000 panelon 12-27-2022 Anion gap [Moles/Vol] 7 mmol/L Low 9 - 18 mmol/L [facility] Calcium [Mass/Vol] 9.4 mg/dL 8.5 - 10. 2 mg/dL [facility] Chloride [Moles/Vol] 106 mmol/L High 97 - 10 5 mmol/L [facility] CO2 [Moles/Vol] 30 mmol/L 22 - 30 mmol/L [facility] Creatinine [Mass/Vol] 0.81 mg/dL 0.58 - 0.96 mg/dL [facility] Estimated Glomerular Filtration Rate 77 mL/min/1.73m >=60 mL/min/1.73m [facility] Glucose [Mass/Vol] 64 mg/dL Low 74 - 99 mg/dL [facility] Potassium [Moles/Vol] 4.7 mmol/L 3.7 - 5.1 mmol/L [facility] Sodium [Moles/Vol] 143 mmol/L 136 - 144 mmol/L [facility] Urea nitrogen [Mass/Vol] 18 mg/dL 7 - 21 mg/dL [facility] LIPID PANEL, NONFASTINGon Cholesterol [Mass/Vol] 148 mg/dL <200 mg/dL [facility] HDL Cholesterol, Nonfasting 69 mg/dL >39 mg/dL [facility] LDL Cholesterol, Nonfasting 67 mg/dL <100 mg/dL [facility] LDL/HDL Ratio, Nonfasting 0.97 mg/dL <2.54 mg/dL [facility] Non HDL Cholesterol, Nonfasting 79 mg/dL <130 mg/dL [facility] Total Chol/HDL Ratio, Nonfasting 2.14 mg/dL <5.10 mg/dL [facility] Triglycerides, Nonfasting 62 mg/dL <150 mg/dL [facility] VLDL Cholesterol, Nonfasting 12 mg/dL <30 mg/dL [facility] MAGNESIUM [facility] 12-27-2022 Magnesium [Mass/Vol] 2.2 mg/dL 1.7 - 2 .3 mg/dL [facility] TSH [facility] 12-27-2022 TSH Qn 0.577 m[IU]/L 0.270 - 4.200 mIU/L [facility] XR KUB 1 VIEWon 12-05-2022 XR KUB [...] by: MEERA HARTMANN Date: 2022-12-05 11:09 Normal [facility] COMPREHENSIVE METABOLIC PANE [facility] 11-09-2021 Albumin [Mass/Vol] 4.3 g/dL Normal 3.6-5.1 [facility] Comment on above: Performed By: #### 1 2013, 5908, 56271 #### [facility] [place] [address] Machine Hamper Maker: Abraham Garcia MD Albumin/Globulin [Mass ratio] 1.8 {ratio} Normal 1.0-2.5 [facility] Comment on above: Performed By: #### 1 0720, 7890, 84834 #### [facility] [address], [address] [place], [place] [id number] Machine Hamper Maker: Abraham Garcia MD ALP [Catalytic activity/Vol] 84 U/L Normal 37-153 [facility] Comment on above: Performed By: #### 1 709, 7316, 03399 #### [facility] [address], [address] [place], [place] [address] Machine Hamper Maker: Abraham Garcia MD ALT [Catalytic activity/Vol] 16 U/L Normal 6-29 [facility] Comment on above: Performed By: #### 1 0231, 0, 49136 #### [facility] of [address], [address] [place] [address] Machine Hamper Maker: Abraham Garcia MD AST [Catalytic activity/Vol] 17 U/L Normal 10-35 [facility] Comment on above: Performed By: #### 1 0231, 0, 42132 #### [facility] of [address], [address] [place] [address] Machine Hamper Maker: Abraham Garcia MD Bilirubin [Mass/Vol] 1.0 mg/dL Normal 0.2-1.2 [facility] Comment on above: Performed By: #### 1 0231, 7599, 30222 #### [facility] of [address], [address] [place] [address] Machine Hamper Maker: Abraham Garcia MD BUN/CREATININE RATIO NOT APPLICABLE Normal 6-22 [facility] Comment on above: Performed By: #### 1 0231, 7599, 96215 #### [facility] of [address], [address] [place] [address] Machine Hamper Maker: Abraham Garcia MD Calcium [Mass/Vol] 9.3 mg/dL Normal 8.6-10.4 [facility] Comment on above: Performed By: #### 1 0231, 7599, 29592 #### [facility] of [address], [address] [place] [address] Machine Hamper Maker: Abraham Garcia MD Chloride [Moles/Vol] 104 mmol/L Normal 98-110 [facility] Comment on above: Performed By: #### 1 0231, 0, 82806 #### [facility] of [place] [address] Machine Hamper Maker: Abraham Garcia MD CO2 [Moles/Vol] 31 mmol/L Normal 20-32 [facility] Comment on above: Performed By: #### 1 0231, 7600, 33765 #### [facility] of [address], [address] [place] [address] Machine Hamper Maker: Abraham Garcia MD Creatinine [Mass/Vol] 0.89 mg/dL Normal 0.60-0.93 [facility] Comment on above: Result Comment: For patients >49 years of age, the reference limit for Creatinine is approximately 13% higher for people identified as -Tai[place]ese. Performed By: #### 1 0231, 0, 10662 #### [facility] [place] [address] Machine Hamper Maker: Abraham Garcia MD eGFR NON-AFR. PALAUAN 65 mL/min/1.73m2 Normal > OR = 60 [facility] Comment on above: Performed By: #### 1 023, 7599, 73875 #### [facility] [place] [address] Machine Hamper Maker: Abraham Garcia MD GFR/1.73 sq M.predicted among blacks MDRD (S/P/Bld) [Vol rate/Area] 76 mL/min/{1.73_m2} Normal > OR = 60 [facility] Comment on above: Performed By: #### 1 023, 7599, 69719 #### [facility] [place] [address] Machine Hamper Maker: Abraham Garcia MD Globulin (S) [Mass/Vol] 2.4 g/dL Normal 1.9-3.7 [facility] Comment on above: Performed By: #### 1 023, 7599, 84375 #### [facility] [place] [address] Machine Hamper Maker: Abraham Garcia MD Glucose [Mass/Vol] 90 mg/dL Normal 65-99 [facility] Comment on above: Result Comment: Fasting reference interval Performed By: #### 1 023, 7600, 14628 #### [facility] [place] [address] Machine Hamper Maker: Abraham Garcia MD Potassium [Moles/Vol] 4.0 mmol/L Normal 3.5-5.3 [facility] Comment on above: Performed By: #### 1 0231, 0, 66107 #### [facility] of [address], [address] [place] [address] Machine Hamper Maker: Abraham Garcia MD Protein [Mass/Vol] 6.7 g/dL Normal 6.1-8.1 [facility] Comment on above: Performed By: #### 1 0231, 0, 24079 #### [facility] of [address], [address] [place] [address] Machine Hamper Maker: Abraham Garcia MD Sodium [Moles/Vol] 140 mmol/L Normal 135-146 [facility] Comment on above: Performed By: #### 1 0231, 0, 40057 #### [facility] of [address], [address] [place] [address] Machine Hamper Maker: Abraham Garcia MD Urea nitrogen [Mass/Vol] 22 mg/dL Normal 7-25 [facility] Comment on above: Performed By: #### 1 023, 0, 35365 #### [facility] of [address], [address] [place] [address] Machine Hamper Maker: Abraham Garcia MD LIPID PANEL, [facility] 10-30 Cholesterol [Mass/Vol] 165 mg/dL Normal <200 [facility] Comment on above: Order Comment: FASTI NG:YES FASTING: YES Performed By: #### 1 0231, 7599, 27465 #### [facility] of [address], [address] [place] [address] Machine Hamper Maker: Abraham Garcia MD Cholesterol in HDL [Mass/Vol] 78 mg/dL Normal > OR = 50 [facility] Comment on above: Order Comment: FASTI NG:YES FASTING: YES Performed By: #### 1 0231, 7600, 57013 #### [facility] of [address], [address] [place] [address] Machine Hamper Maker: Abraham Garcia MD Cholesterol in LDL [Mass/Vol] 73 mg/dL Normal [facility] Comment on above: Order Comment: FASTI NG:YES FASTING: YES Result Comment: Refe rence range: <100 Desirable range <100 mg/dL for primary prevention; <70 mg/dL for patients with CHD or diabetic patients with > or = 2 CHD risk factors. LDL-C is now calculated using the Reese calculation, which is a validated novel method providing better accuracy than the Friedewald equation in the estimation of LDL-C. Kai SS et al. ZANDER. 2013;310(19): 6490-2599 (http://education.CRV.Samuels Sleep/faq/AGC079) Performed By: #### 1 0231, 7600, 69469 #### [facility] [address], [address] [place] [address] Machine Hamper Maker: Abraham Garcia MD Cholesterol.total/Ch olesterol in HDL [Mass ratio] 2.1 {ratio} Normal <5.0 [facility] Comment on above: Order Comment: FASTI NG:YES FASTING: YES Performed By: #### 1 0231, 7600, 70368 #### [facility] [address], [address] [place] [address] Machine Hamper Maker: Abraham Garcia MD NON HDL CHOLESTEROL 87 mg/dL (calc) Normal <130 [facility] Comment on above: Order Comment: FASTI NG:YES FASTING: YES Result Comment: For patients with diabetes plus 1 major ASCVD risk factor, treating to a non-HDL-C goal of <100 mg/dL (LDL-C of <70 mg/dL) is considered a therapeutic option. Performed By: #### 1 0231, 7600, 78207 #### [facility] [address], [address] [place] [address] Machine Hamper Maker: Abraham Garcia MD Triglyceride [Mass/Vol] 61 mg/dL Normal <150 [facility] Comment on above: Order Comment: FASTI NG:YES FASTING: YES Performed By: #### 1 0231, 7600, 21753 #### [facility] [address], [address] [place] [address] Machine Hamper Maker: Abraham Garcia MD TSH+FREE T4on 11-09-2021 Free T4 [Mass/Vol] 1.4 ng/dL Normal 0.8-1.8 [facility] Comment on above: Performed By: #### 1 0231, 7600, 64131 #### [facility] [address] [facility], [address] [place] [address] Machine Hamper Maker: Abraham Garcia MD TSH Qn 1.19 m[IU]/L Normal 0.40-4.50 [facility] Comment on above: Performed By: #### 1 0231, 7600, 61281 #### [facility] [address] [place] [address], [address] [place] [address] Machine Hamper Maker: Abraham Garcia MD OBSOLETEon 07-21-2020 OBSOLETE Refill (AVPRAD) LESVIA RAMOS I ([id number]) 1950 F Date Time Provider Department 07/21/20 ANDRES BOYD [facility]AD During your visit today, we recorded the following information about you: Allergies As of Date: 07/21/2020 Noted Allergy Reaction HEPARIN 12/09/2014 14 - Other: See Comments Comments: HIT SULFA (SULFONAMIDE ANTIBIOTICS) 11/17/2011 2 - Rash Date Reviewed: 06/25/2020 Reviewed by: Chyna Steve) Cindy - Fully Assessed Reason for Visit: Refill Request [94] Visit Diagnoses:S/P AVR (aortic valve replacement) 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] SVT (supraventricular tachycardia) ([facility]) [I47.1] Essential hypertension [I10] Order(s):metoprolol succinate ER [...] Encounter Status:Closed by ANDRES BOYD on 07/21/20 [facility] Large Joint Arthro/Inj: L solis bacromial bursa [facility] Vital Signs Date Time Vital Sign Value Performing Clinician Rebekah castano 02-28-2024 13:36-0400 Body mass index (BMI) [Ratio] 21.68 kg/m2 Andres Boyd MD Work Phone: [facility] 02-28-2024 13:36-0400 Body weight 57.3 kg Andres Boyd MD Work Phone: [facility] 02-28-2024 13:36-0400 Diastolic blood pressure 77 mm[Hg] Andres Boyd MD Work Phone: [facility] 02-28-2024 13:36-0400 Heart rate 64 /min Andres Boyd MD Work Phone: [facility] 02-28-2024 13:36-0400 Systolic blood pressure 120 mm[Hg] Andres Boyd MD Work Phone: [facility] 12-27-2023 09:39-0500 Body weight 59.88 kg Andres Boyd MD Work Phone: [facility] 12-27-2023 09:39-0500 Diastolic blood pressure 55 mm[Hg] Andres Boyd MD Work Phone: [facility] 12-27-2023 09:39-0500 Heart rate 69 /min Andres Boyd MD Work Phone: [facility] 12-27-2023 09:39-0500 Systolic blood pressure 114 mm[Hg] Andres Boyd MD Work Phone: [facility] 11-28-2023 11:00-0500 Blood Pressure Location Radha Orzech [facility] [place] 11-28-2023 11:00-0500 Diastolic blood pressure 91 mm[Hg] Radha Orzech [facility] 11-28-2023 11:00-0500 Heart rate 72 /min Radha Orzech [facility] 11-28-2023 11:00-0500 Respiratory rate 16 /min Radha Orzech [facility] 11-28-2023 11:00-0500 Systolic blood pressure 141 mm[Hg] Radha Orzech [facility] 11-10-2023 09:25-0500 Body height 162.6 cm Rachael Canela DO Work Phone: [employer] 11-10-2023 09:25-0500 Body mass index (BMI) [Ratio] 22.52 kg/m2 Rachael Canela DO Work Phone: [employer] 11-10-2023 09:25-0500 Body temperature 97.9 [degF] Rachael Canela DO Work Phone: [facility] [employer] 11-10-2023 09:25-0500 Body weight 59.51 kg Rachael Canela DO Work Phone: [facility] [employer] 11-10-2023 09:25-0500 Diastolic blood pressure 76 mm[Hg] Rachael Canela DO Work Phone: [facility] [employer] 11-10-2023 09:25-0500 Heart rate 77 /min Rachael Canela DO Work Phone: [facility] [employer] 11-10-2023 09:25-0500 SaO2% (BldA) [Mass fraction] 99 % Rachael Canela DO Work Phone: [facility] [employer] [facility] 11-10-2023 09:25-0500 Systolic blood pressure 110 mm[Hg] Rachael Canela DO Work Phone: [facility] 06-27-2023 08:53-0400 Body weight 58.97 kg Andres Boyd MD Work Phone: [facility] 06-27-2023 08:53-0400 Diastolic blood pressure 82 mm[Hg] Andres Boyd MD Work Phone: [facility] 06-27-2023 08:53-0400 Heart rate 69 /min Andres Boyd MD Work Phone: [facility] 06-27-2023 08:53-0400 Systolic blood pressure 140 mm[Hg] Andres Boyd MD Work Phone: [facility] 12-27-2022 08:51-0500 Body weight 60.78 kg Lavisa Mae SCREEN PRINTING MACHINE OPERATOR.MANAGER ED Work Phone: [facility] 12-27-2022 08:51-0500 Diastolic blood pressure 84 mm[Hg] Lavisa Mae SCREEN PRINTING MACHINE OPERATOR.MANAGER ED Work Phone: [facility] 12-27-2022 08:51-0500 Heart rate 54 /min Lavisa Mae SCREEN PRINTING MACHINE OPERATOR.MANAGER ED Work Phone: [facility] 12-27-2022 08:51-0500 Systolic blood pressure 126 mm[Hg] Nitza Mae APRN.MANAGER ED Work Phone: [facility] 12-09-2022 08:27-0500 Blood Pressure Location India SOLIS [facility] 12-09-2022 08:27-0500 Diastolic blood pressure 69 mm[Hg] [place] SOLIS [facility] 12-09-2022 08:27-0500 Heart rate 68 /min [place] SOLIS [facility] 12-09-2022 08:27-0500 Respiratory rate 16 /min [place] SOLIS [facility] 12-09-2022 08:27-0500 Systolic blood pressure 117 mm[Hg] Indiaangel luis SOLIS [facility] Encounters Encounter Date Encounter Type Care Provider Facility Start: 06-18-2024 ambulatory Radha X Apollo Montenegro y:[facility] [place] Start: 05-29-2024 End: 05-30-2024 Evaluation and management of inpatient [facility] Start: 05-28-2024 End: 05-28-2024 ambulatory [facility] Start: 02-28-2024 End: 02-28-2024 ambulatory ANDRES BOYD Facility:[facility] Start: 02-28-2024 End: 02-28-2024 Patient encounter procedure Andres Boyd MD Work Phone: Cardiology Comment on above: S/P AVR (aortic valv e replacement) and aortoplasty (Primary Dx); SVT (supraventricular tachycardia) (HCC); Chronic diastolic heart failure (HCC); PVC (premature ventricular contraction); Nonrheumatic tricuspid valve regurgitation Start: 01-17-2024 End: 01-17-2024 ambulatory ANDRES BOYD Facility:[facility] Start: 12-28-2023 Telephone encounter Andres castle MD Work Phone: [address] [place] [address] Comment on above: Medication Problem medication questions / cost issue Start: 12-27-2023 End: 12-28-2023 ambulatory RACHAEL DUKECarter Facility:[facility] Start: 12-27-2023 End: 12-27-2023 ambulatory RACHAEL PAZ RICHMOND Facility:[facility] Start: 12-27-2023 End: 12-27-2023 Patient encounter procedure Andres Boyd MD Work Phone: Cardiology Comment on above: S/P AVR (aortic valv e replacement) and aortoplasty (Primary Dx); SVT (supraventricular tachycardia) (HCC); Nonrheumatic tricuspid valve regurgitation; PVC (premature ventricular contraction); Acute on chronic diastolic heart failure (HCC) Start: 12-21-2023 End: 12-21-2023 ambulatory [facility] Start: 12-20-2023 End: 12-20-2023 ambulatory Referral Self Facility:[facility] Start: 12-20-2023 End: 12-20-2023 ambulatory DO Rachael Canela Work Phone: [facility] Work Phone: Start: 12-20-2023 End: 12-20-2023 Patient encounter procedure DO Rachael Canela Work Phone: [facility] Work Phone: Start: 11-28-2023 End: 11-28-2023 ambulatory [facility] Start: 11-28-2023 End: 11-28-2023 Patient encounter procedure Rachael Canela Work Phone: [facility] Comment on above: Encounter for subseq uent annual wellness visit (AWV) in Medicare patient (Primary Dx); Colon cancer screening; Encounter for screening mammogram for malignant neoplasm of breast; Postmenopausal status; Screening for osteoporosis Start: 11-28-2023 End: 11-28-2023 ambulatory Radha Bustillos Facility:[facility] Start: 11-28-2023 End: 11-28-2023 Patient encounter procedure Radha Bustillos [facility] Start: 11-10-2023 End: 11-10-2023 ambulatory RACHAEL CANELA [facility] Start: 11-10-2023 End: 11-10-2023 Office outpatient visit 25 minutes Rachael Canela DO Work Phone: [facility] Comment on above: Essential hypertensi on (Primary Dx); Hyperlipidemia, unspecified hyperlipidemia type; Sciatica of left side; 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-induced thrombocytopenia) ([facility]) Start: 11-06-2023 Refill Rachael Bess O Work Phone: [facility] Comment on above: Hyperlipidemia, unsp ecified Start: 08-28-2023 Refill Andres marin MD Work Phone: Cardiology Comment on above: Refill Request Start: 06-27-2023 End: 06-28-2023 [facility] Start: 06-27-2023 End: 06-27-2023 Patient encounter procedure Andres Boyd MD Work Phone: Cardiology Comment on above: S/P AVR (aortic valv e replacement) 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 (Primary Dx); APC (atrial premature contractions); SVT (supraventricular tachycardia) ([facility]); Primary hypertension; Venous (peripheral) insufficiency Start: 05-30-2023 End: 05-30-2023 ambulatory INDIGO SALDAÑA Facility:[facility] Start: 05-30-2023 End: 05-30-2023 Patient encounter procedure Indigo Saldaña DO Work Phone: Orthopaedics Comment on above: Impingement syndrome of left shoulder (Primary Dx) Start: 05-30-2023 End: 05-30-2023 Subsequent hospital visit by physician Gregory Guerin [facility] Rej Work Phone: Radiology Comment on above: Pain [R52] Start: 04-28-2023 ambulatory Andres marin MD Work Phone: Cardiology Comment on above: new medication Start: 12-27-2022 End: 12-27-2022 Patient encounter procedure Genarogallo Carmelita LAMBMANAGER ED Work Phone: Cardiology Comment on above: S/P AVR (aortic valv e replacement) and aortoplasty (Primary Dx); SVT (supraventricular tachycardia) (HCC); APC (atrial premature contractions); Primary hypertension; Patchy loss of hair; Mixed hyperlipidemia; Typical atrial flutter (HCC) Start: 12-17-2022 Refill Cheyanne nielson APRN.MANAGER ED Work Phone: Cardiology Comment on above: Refill Request Start: 12-09-2022 End: 12-09-2022 Patient encounter procedure India SOLIS [facility] Start: 12-05-2022 End: 12-06-[address] INDIA SOLIS Facility:[facility] Start: 09-12-2022 End: 09-12-2022 ambulatory DO Rachael Canela Work Phone: [facility] Work Phone: Start: 09-12-2022 End: 09-12-2022 Patient encounter procedure DO Rachael Canela Work Phone: [facility] Start: 07-02-2022 Refill Cheyanne nielson APRN.MANAGER ED Work Phone: Cardiology Comment on above: Refill Request Start: 06-02-2022 Refill Andres marin MD Work Phone: Cardiology Comment on above: Refill Request Start: 11-19-2014 End: 12-02-2014 Patient encounter status Andres Boyd MD Work Phone: [facility] Work Phone: Procedures Date Procedure Procedure Detail Performing Clinician Start: 12-27-2023 Ecg routine ecg w/le ast 12 lds i&r only Andres Boyd MD Work Phone: Start: 12-20-2023 Screening mammograph y of bilateral breasts DO Rachael Canela Work Phone: Start: 11-28-2023 Adult depression scr eening assessment Rachael Canela DO Work Phone: Start: 11-10-2023 Adult depression scr eening assessment [...] Phone: Start: 10-30-2021 Extraction of cataract India SOLIS Start: 12-17-2018 Adult depression scr eening assessment Andres Boyd MD Work Phone: Start: 10-30-2014 Replacement of aortic valve India SOLIS Colonoscopy India SOLIS Plan of Treatment Date Care Activity Detail Author Start: 12-27-2027 Lipid 1996 panel - S migel or Plasma Lipid Screening [facility] Start: 12-27-2027 Lipid panel Lipid Screening [facility] Start: 12-27-2027 LIPID SCREEN LIPID SCREEN [facility] Start: 07-17-2027 DTaP,Tdap and Td Vac cines (2 - Td or Tdap) DTaP,Tdap and Td Vaccines (2 - Td or Tdap) [facility] Start: 07-17-2027 Urine microalbumin profile DTa P,Tdap,Td Vaccine (2 - Td or Tdap) [facility] Start: 01-16-2027 Diabetes Screening Diabetes Screenin g [facility] Start: 12-27-2026 Diabetes Screening Diabetes Screenin g [facility] Start: 06-29-2026 LIPID SCREEN LIPID SCREEN [facility] Start: 06-27-2026 Diabetes Screening Diabetes Screenin g [facility] Start: 12-27-2025 DIABETES SCREEN DIABETES SCREEN [facility] Start: 02-27-2025 BP Controlled (<130/80) BP Controlle d (<130/80) [facility] Start: 12-27-2024 BP Controlled (<130/80) BP Controlle d (<130/80) [facility] Start: 12-20-2024 Screening for malign ant neoplasm of breast Mammogram Screening [facility] Start: 12-03-2024 End: 12-03-2024 Patient encounter procedure 12/03/2024 2:00 PM EST Office Visit [facility] [address] [place] [address] [facility] Start: 11-28-2024 Depression Screening Depression Scre ening [facility] Start: 11-28-2024 Fall Risk Screening Fall Risk Screen ing [facility] Start: 11-28-2024 Medicare Annual Well ness Visit Medicare Annual Wellness Visit [facility] Start: 11-10-2024 Adult BMI Screening Adult BMI Screen ing [facility] Start: 11-10-2024 Depression Screening Depression Scre ening [facility] Start: 11-10-2024 Fall Risk Screening Fall Risk Screen ing [facility] Start: 11-10-2024 Tobacco Screening Tobacco Screening [facility] Start: 09-27-2024 Adult BMI Screening Adult BMI Screen ing [facility] Start: 09-27-2024 Depression Screening Depression Scre ening [facility] Start: 09-27-2024 Fall Risk Screening Fall Risk Screen ing [facility] Start: 09-27-2024 Tobacco Screening Tobacco Screening [facility] Start: 09-11-2024 End: 09-11-2024 Patient encounter procedure Cardiology Comment on above: S/P AVR (aortic valv e replacement) 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]; SVT (supraventricular tachycardia) (HCC) [I47.10]; Chronic diastolic heart failure (HCC) [I50.32]; PVC (premature ventricular contraction) [I49.3] 6 month follow up Start: 08-30-2024 End: 11-29-2024 Basic metabolic 2000 panel - Serum or Plasma BASIC METABOLIC PANEL Lab Routine S/P AVR (aortic valve replacement) and aortoplasty SVT (supraventricular tachycardia) (HCC) Chronic diastolic heart failure (HCC) Expected: 08/30/2024, Expires: 11/29/2024 [facility] Work Phone: Comment on above: Expected: 08/30/2024 , Expires: 11/29/2024 Start: 08-30-2024 End: 02-27-2025 Echocardiography ECHO Cardiology Routine S/P AVR (aortic valve replacement) and aortoplasty SVT (supraventricular tachycardia) (HCC) Chronic diastolic heart failure (HCC) PVC (premature ventricular contraction) Expected: 08/30/2024, Expires: 02/27/2025 [facility] Comment on above: Expected: 08/30/2024 , Expires: 02/27/2025 Start: 08-30-2024 End: 11-29-2024 Natriuretic peptide.B prohormone N-Terminal [Mass/volume] in Serum or Plasma NT PRO BNP Lab Routine S/P AVR (aortic valve replacement) and aortoplasty SVT (supraventricular tachycardia) (HCC) Chronic diastolic heart failure (HCC) Expected: 08/30/2024, Expires: 11/29/2024 [facility] Comment on above: Expected: 08/30/2024 , Expires: 11/29/2024 Start: 06-29-2024 DIABETES SCREEN DIABETES SCREEN [facility] Start: 01-17-2024 End: 04-17-2024 Basic metabolic 2000 panel - Serum or Plasma BASIC METABOLIC PNL Lab Routine Expected: 01/17/2024, Expires: 04/17/2024 [facility] Work Phone: Comment on above: Expected: 01/17/2024 , Expires: 04/17/2024 Start: 01-13-2024 Covid-19 Vaccine () Covid-19 Vaccine () [facility] Start: 12-28-2023 End: 06-27-2024 Echocardiography ECHO Cardiology Routine SVT (supraventricular tachycardia) (HCC) Expected: 12/28/2023, Expires: 06/27/2024 [facility] Work Phone: Comment on above: Expected: 12/28/2023 , Expires: 06/27/2024 Start: 11-28-2023 End: 11-28-2024 DBT Breast - bilateral screening Mammography screening bilateral with CAD Imaging Routine Encounter for screening mammogram for malignant neoplasm of breast Expected: 11/28/2023, Expires: 11/28/2024 [facility] Comment on above: Expected: 11/28/2023 , Expires: 11/28/2024 Start: 11-28-2023 End: 11-28-2024 DXA Skeletal system Views for bone density Dexa scan central skeletal Imaging Routine Postmenopausal status Screening for osteoporosis Expected: 11/28/2023, Expires: 11/28/2024 [facility] Comment on above: Expected: 11/28/2023 , Expires: 11/28/2024 Start: 11-23-2023 End: 11-23-2023 Patient encounter procedure 11/23/2023 11:00 AM EST [facility] [address] [place] [address] [facility] Start: 11-10-2023 End: 11-10-2023 Patient encounter procedure 11/10/2023 9:20 AM EST [facility] [address] [place] [address] Rachael Canela, [address] [place] [address] [facility] Start: 10-30-2023 Advance Directive Discussion Advance Directive Discussion [facility] Start: 10-30-2023 Behavioral Health Screening Behavioral Health Screening [facility] Start: 10-30-2023 Depression Assessment Depression Ass essment [facility] Start: 06-30-2023 Covid-19 Vaccine () Covid-19 Vaccine () [facility] Start: 06-30-2023 Influenza vaccination C [facility] Start: 06-27-2023 End: 08-27-2023 Comprehensive metabolic 2000 panel - Serum or Plasma [facility] Work Phone: Comment on above: Expected: 06/27/2023 , Expires: 08/27/2023 Start: 12-17-2022 COVID-19 VACCINE (6 - Pfizer series) COVID-19 VACCINE (6 - Pfizer series) [facility] Start: 10-30-2022 ADVANCE DIRECTIVE DISCUSSION ADVANCE DIRECTIVE DISCUSSION [facility] Start: 10-30-2022 DEPRESSION ASSESSMENT DEPRESSION ASS ESSMENT [facility] Start: 06-30-2022 Influenza vaccination INFLUENZA (#1) [facility] Start: 04-14-2022 COVID-19 VACCINE (5 - Booster for Pfizer series) COVID-19 VACCINE (5 - Booster for Pfizer series) [facility] Start: 12-05-2021 COVID-19 VACCINE (4 - Booster for Pfizer series) COVID-19 VACCINE (4 - Booster for Pfizer series) [facility] Start: 10-30-2021 ADVANCE DIRECTIVE DISCUSSION ADVANCE DIRECTIVE DISCUSSION [facility] Start: 12-17-2019 Adult depression scr eening assessment DEPRESSION SCREENING [facility] Start: 08-27-2019 Administration of varicella zoster vaccine Zoster (Shingles) Vaccine (3 of 3) [facility] [employer] [facility] Start: 08-27-2019 Shingrix Vaccine (3 of 3) Rivera grix Vaccine (3 of 3) [facility] Start: 06-23-2017 Pneumococcal Vaccine : 65+ (2 - PCV) Pneumococcal Vaccine: 65+ (2 - PCV) [facility] Start: 06-23-2017 Pneumococcal Vaccine : 65+ (2 of 2 - PCV) Pneumococcal Vaccine: 65+ (2 of 2 - PCV) [facility] Start: 11-03-2015 PNEUMOCOCCAL: 65+ (1 - PCV) PNEUMOCOCCAL: 65+ (1 - PCV) [facility] Start: 11-03-2015 PNEUMOCOCCAL: 65+ (2 - PCV) PNEUMOCOCCAL: 65+ (2 - PCV) [facility] Start: 2015 BONE DENSITY BONE DENSITY [facility] Start: 2015 Bone Density Screening Bone Density Screening [facility] Start: 12-01-2014 SHINGRIX VACCINE (2 of 3) RIVERA GRIX VACCINE (2 of 3) [facility] Start: 2010 RSV Vaccine (1 - 1-d ose 60+ series) RSV Vaccine (1 - 1-dose 60+ series) [facility] Start: 1995 COLOGUARD (FIT-DNA) COLOGUARD (FIT-D NA) [facility] Start: 1995 Colonoscopy COLONOSCOPY [facility] Start: 1995 COLORECTAL CANCER SCREENING COLORECTAL CANCER SCREENING [facility] Start: [address] COLONOGRAPHY [facility] Start: 1995 FECAL OCCULT BLOOD FECAL OCCULT BLOO D [facility] Start: 1995 Screening for malign ant neoplasm of colon [facility] Start: 1995 SIGMOIDOSCOPY SIGMOIDOSCOPY [facility] Start: 1990 Mammography [facility] Start: 1969 Urine microalbumin profile DTAP,TDAP ,TD (1 - Tdap) [facility] Start: 1968 ANNUAL PCP TEAM INTERVENTIONAL TECH CAROL DISEASE VISIT ANNUAL PCP TEAM CHRONIC DISEASE VISIT [facility] Start: 1968 BP CONTROLLED (<130/80) BP CONTROLLE D (<130/80) [facility] Start: 1968 HEPATITIS C SCREENING HEPATITIS C [facility] Start: 1968 Hepatitis C screening Hepatitis C [facility] Start: 1950 Medicare Annual Well ness Visit Medicare [facility] End: 11-28-2024 Colonoscopy Colonoscopy GI Routine Colon cancer screening 1 Occurrences starting 11/28/2023 until 11/28/2024 [facility] Work Phone: Comment on above: 1 Occurrences starti ng 11/28/2023 until 11/28/2024 End: 06-27-2024 ECG COMPLETE ECG COMPLETE ECG Routine S/P AVR (aortic valve replacement) 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 APC (atrial premature contractions) 1 Occurrences starting 06/27/2023 until 06/27/2024 [facility] Work Phone: Comment on above: 1 Occurrences starti ng 06/27/2023 until 06/27/2024 ECG COMPLETE ECG COMPLETE ECG 06/27/2023 8:52 AM EDT [facility] ECG COMPLETE ECG COMPLETE ECG 12/27/2023 9:42 AM EST [facility] OUTSIDE VENDOR CARDI AC OUTPATIENT EXTENDED RHYTHM RECORDING (WITHOUT TELEMETRY) OUTSIDE VENDOR CARDIAC OUTPATIENT EXTENDED RHYTHM RECORDING (WITHOUT TELEMETRY) Holter Routine S/P AVR (aortic valve replacement) and aortoplasty Nonrheumatic tricuspid valve regurgitation PVC (premature ventricular contraction) Ordered: 12/27/2023 [facility] Work Phone: Comment on above: Ordered: 12/27/2023 [facility] Immunizations Immunization Date Immunization Notes Care Provider Fa [facility] 10-25-2023 RSV, bivalent, prote in subunit RSVpreF, diluent reconstituted, 0.5 mL, PF Rachael Canela DO Work Phone: [facility] 09-26-2023 influenza virus vacc ine, unspecified formulation Radha Bustillos [facility] 09-26-2023 Influenza, High-dose , Quadrivalent Rachael Canela DO Work Phone: [facility] 08-31-2022 Influenza, High-dose , Quadrivalent Rachael Canela DO Work Phone: [facility] 08-31-2022 influenza virus vacc ine, unspecified formulation Andres Boyd MD Work Phone: [facility] 08-16-2022 SARS-CoV-2 (COVID-19 ) [id number] Radha Orzech [facility] 02-17-2022 SARS-CoV-2 mRNA (rembylkoaiv-iany-tzbthj e) vaccine Radha Orzech [facility] 09-02-2021 influenza virus vacc ine, unspecified formulation Radha Orzech [facility] 09-02-2021 Influenza, High-dose , Quadrivalent Rachael Yuhas DO Work Phone: [facility] [employer] 08-04-2021 SARS-CoV-2 (COVID-19 ) mRNA BNT-162b2 vax Radha Orzech [facility] 12-17-2020 SARS-CoV-2 (COVID-19 ) mRNA BNT-162b2 vax Radha Orzech [facility] Comment on above: Result Comment: 2023: [id number] 11-26-2020 SARS-CoV-2 (COVID-19 ) mRNA BNT-162b2 vax Radha Orzech [facility] Comment on above: Result Comment: 2023: [id number] 07-30-2020 influenza virus vacc ine, unspecified formulation Radha Orzech [facility] 07-30-2020 influenza, injectabl e, quadrivalent, preservative free Rachael Dukehas DO Work Phone: [facility] [employer] [facility] 07-05-2020 influenza virus vacc ine, unspecified formulation Radha Orzech [facility] 07-05-2020 influenza, high dose seasonal, preservative-free Rachael Yuhas DO Work Phone: [facility] 08-21-2019 influenza virus vacc ine, unspecified formulation Radha Orzech [facility] 08-21-2019 influenza, high dose seasonal, preservative-free Rachael Chairezs DO Work Phone: [facility] 07-02-2019 zoster vaccine, live Rachael santana DO Work Phone: [facility] 07-02-2019 zoster vaccine, unspecified formulation Rachael Chairezs DO Work Phone: [facility] 04-29-2019 zoster vaccine recombinant Rachael Chairezs DO Work Phone: [facility] 10-01-2018 influenza virus vacc ine, unspecified formulation Radha Orzech [facility] 10-01-2018 influenza, seasonal, injectable, preservative free Rachael Chairezs DO Work Phone: [facility] 07-17-2017 tetanus toxoid, redu anrdea diphtheria toxoid, and acellular pertussis vaccine, adsorbed Rachael Canela DO Work Phone: [facility] 01-11-2017 influenza virus vacc ine, unspecified formulation Radha Orzech [facility] 01-11-2017 influenza, seasonal, injectable Rachael Chairezs DO Work Phone: [facility] 06-23-2016 pneumococcal polysaccharide vaccine, 23 valent Rachael Chairezs DO Work Phone: [facility] 09-29-2015 influenza virus vacc ine, unspecified formulation Radha Orzech [facility] 09-29-2015 seasonal influenza, intradermal, preservative free Rachael Chairezs DO Work Phone: [facility] 11-03-2014 pneumococcal polysaccharide vaccine, 23 valent Andres Boyd MD Work Phone: [facility] 10-06-2014 zoster vaccine, live Anrdes Boyd MD Work Phone: [facility] 09-24-2014 influenza virus vacc ine, unspecified formulation Radha Mendozaloyd [facility] 09-24-2014 influenza, seasonal, injectable, preservative free Rachael Canela DO Work Phone: [facility] 08-04-2014 influenza virus vacc ine, unspecified formulation Radha Orsha [facility] 08-04-2014 influenza, high dose seasonal, preservative-free Andres Boyd MD Work Phone: [facility] 07-30-2014 pneumococcal polysaccharide vaccine, 23 valent Rachael Canela DO Work Phone: [facility] 03-20-2001 hepatitis B vaccine, adult dosage Rachael Chairezs DO Work Phone: [facility] 10-19-2000 hepatitis B vaccine, adult dosage Rachael Chairezs DO Work Phone: [facility] 09-19-2000 hepatitis B vaccine, adult dosage Rachael Chairezs DO Work Phone: [facility] Payers Date Payer Category Payer Self-pay [id number] 2020 Medicare [id number] 2020 Private Health Insurance [employer] SUPPLEMENT [id number] 2020-Present [phone] [address] [address] [place] [address] Indemnity [id number] 2020 Private Health Insurance [id number] 2015 Medicare MEDICARE MEDICAR E A AND B [id number] 2015-Present [phone] [place] [address] Medicare [id number] 2015 Medicare [id number] 1959 Medicare [id number] 1959 Private Health Insurance [facility] [id number] 1950 Unknown [id number] 1950 Unknown [id number] 1950 Unknown [id number] 1950 Unknown [id number] 1950 Unknown [id number] 1950 Unknown [id number] 1950 Unknown [id number] 1950 Unknown [id number] 1950 Unknown [id number] Private Health Insurance [facility] [id number] Unknown Jason [id number] Unknown [id number] Social History Date Type Detail Facility Start: 11-17-2011 End: 11-19-2014 Tobacco smoking status NHIS Never smoked tobacco [facility] Work Phone: Start: 11-17-2011 End: 11-19-2014 Tobacco use and exposure Smokeless tobacco non-user [facility] Work Phone: Start: 12-27-2021 End: 02-28-2024 Alcohol intake Current drinker of alcohol (finding) [facility] Start: 11-17-2011 History SDOH Alcohol Comment social [facility] Start: 1950 Sex Assigned At Female [facility] Start: 06-17-2022 End: 06-27-2022 Exposure to SARS-CoV-2 (event) Not sure [facility] Work Phone: Start: 12-27-2022 End: 05-30-2023 Sex Assigned At Female [facility] Start: 12-27-2022 End: 05-30-2023 History of Social function [facility] Adult Depression Screening Assessment 0 [facility] Start: 12-21-2020 Gender identity Identifies as female gender (finding) [facility] Start: 12-21-2020 Sexual orientation Heterosexual (finding) [facility] Start: 09-27-2023 Alcohol Comment socially [facility] [employer] Start: 1950 Sex Assigned At Not on file [facility] [employer] [facility] Has the [employer], [employer] s, oil, or water [employer] threatened to shut off services in your home in past 12Mo No [facility] Do you belong to any clubs or organizations such as druze groups, unions, fraternal or athletic groups, or school groups? Yes [facility] Are you now , , , , never or living with a partner? [facility] How often to you hav e a drink containing alcohol? 2-3 time sa week [facility] How many standard dr inks containing alcohol do you have on a typical day? 1 or 2 [facility] How often do you hav e 6 or more drinks on 1 occasion? Never [facility] Do you feel stress - tense, restless, nervous, or anxious, or unable to sleep at night because your mind is troubled all the time - these days [OSQ] Not at all [facility] Medical Equipment Procedure Code Equipment Code Equipment Origin al Text Equipment Identifier Dates Graft Cv 30cm 30 mm 2 Vlr Wvn - [id number] Start: 12-01-2014 Ranson Cv 4x.5in Thk1.65mm Ptfe - [id number] Start: 12-01-2014 Comment on above: Description: pledget s on suture Ranson Cv 6x6in Thk1.65mm Ptfe - [id number] Start: 12-01-2014 Valve Aort 23mm C-E Prm Bprth - [id number] Start: 12-01-2014 Functional Status Date Assessment Result Facility 11-28-2023 Functional Status N/A [facility] [place] 12-09-2022 Functional Status N/A [facility] [place] Clinical Notes 12-24-2014 to 02-28-2024 Patient InstructionsAndres Boyd MD - 02/28/2024 1:30 PM EDTTelephone Encounter - Remedios Gage RN - 12/28/2023 11:47 AM ESTTelephone Encounter - Randa Cunningham RN - 12/28/2023 11:16 AM EST Note Date & Type Note Facility 02-28-2024 Note HNO ID: [id number] Author: ANDRES BOYD MD Service: ? Author Type: Physician Type: Progress Notes Filed: 02/28/2024 14:29 Note Text: [facility] OUTPATIENT VISIT DATE February 28, 2024 OUTPATIENT VISIT TYPE ESTABLISHED PRIMARY CARE PHYSICIAN: Rachael Canela DO [address] [place] [address] CHIEF COMPLAINT: Follow-up Last visit with me: Nov 2023 HISTORY OF PRESENT ILLNESS: Ms. Ramos is a 73 year old female, seen in cardiology clinic today to for follow-up. At last visit, she was noted to be volume overloaded. Recommended starting Aldactazide and Farxiga, but she was unable to afford Farxiga. Since last visit, Doing well, no specific CV symptoms. Has lost around 6 pounds since prior visit. Diet: Overall well balanced. Otherwise she denies [...] since then, but intermittent palpitations. Moderate TR PHYSICAL EXAMINATION: BP 120/77 Pulse 64 Wt 57.3 kg (126 lb 5.2 oz) BMI 21.68 kg/m? General: No acute distress, appears comfortable HEENT: no bruits, no JVD Pulmonary/chest: CTA b/L. CVS: Normal S1 and S2, Regular rhythm, normal rate. Soft 2/6 early systolic murmur, RUSB. Central and peripheral pulses 2+ B/L, no carotid or abdominal bruits. Abdomen: Soft, non-tender, non-distended. Bowel sounds normal Extremities: skin changes consistent with chronic venous insufficiency, wearing compressions, no edema today Neuro: AAOx4 Psych: Normal mood and affect Ambulatory monitor from December 2023 reviewed and discussed with patient, heart rate range 46 to 203 bpm, average heart rate 73 bpm. 1 run of ventricular tachycardia with 13 beats, multiple SVT runs, around 11% PVCs. Echocardiogram December 27, 2023 reviewed and discussed with patient. LVEF 66%, grade 2 diastolic dysfunction, dilated RV, moderate, 2-3+ tricuspid regurgitation, gradients across the aortic valve 17/9 mmHg with DVI of 0.51. RVSP 30 mmHg. PAST MEDICAL HISTORY Diagnosis Date Aortic stenosis [...] HIT Sulfa (Sulfonamide * Rash CURRENT MEDICATIONS: LATANOPROST OPHTHALMICUse 1 Drop in eyes once daily.Disp: Rfl: Magnesium 250 mg tabTake 250 mg by mouth once daily.Disp: Rfl: spironolactone-hctz 25/25 (ALDACTAZIDE) 25-25 mg per tabletTake 0.5 tablets by mouth once daily.Disp: 45 tabletRfl: 3 metoprolol succinate ER (TOPROL XL) 50 mg 24 hr tabletTake 1 tablet by mouth two times a day.Disp: 180 tabletRfl: 3 atorvastatin (LIPITOR) 10 mg tabletTake 10 mg by mouth once daily.Disp: Rfl: cholecalciferol, Vitamin D3, (VITAMIN D3) 1,250 mcg (50,000 unit) cap capsuleTake 50,000 Units by mouth one time a week.Disp: Rfl: levothyroxine (SYNTHROID) 75 mcg tabletTake 1 tablet by mouth daily before breakfast.Disp: 90 tabletRfl: 3 Amoxicillin 500 mg tabletTake 4 tablets by mouth 30-60 minutes before dental procedureDisp: 4 tabletRfl: 11 timolol/dorzolamide/latanop/PF (AUGKUPO-ACGCDMFKQX-KXQZWDN,PF,) 0.5-2-0.005 % dropUse 1 Drop in eyes every evening.Disp: Rfl: (Patient not taking: Reported on 02/28/2024) acetaminophen (TYLENOL) 325 mg tabletTake 2 tablets by mouth every 6 hours as needed for Pain (DO NOT EXCEED 4,000 MG IN 24 HOUR PERIOD).Disp: Rfl: IMPRESSION/RECOMMENDATIONS: S/p AVR and aortic root repair for bicuspid aortic valve 11/2014. Echocardiogram December 27, 2023 -LVEF around 66 %, RV is mildly dilated and there is moderate TR, normal RA pressure. This was new compared to prior echocardiogram. She was started on Aldactazide and SGLT2i at that visit, but was subsequently unable to afford SGLT2i. prosthetic aortic valve functioning we (more content not included)... [facility] 02-28-2024 Instructions Andres Boyd MD - 02/28/2024 2:04 PM EDT Your dry weight (weight when you do not retain fluids) is 126 lbs Weigh yourself every morning. If weight is more than 5 lbs above your dry weight for 3 days in a row, take 20 mg of lasix once. Limit sodium to 1849-5224 mg /day Limit total fluid to 50-60 Oz/day documented in this encounter [facility] 02-28-2024 History of Present illness Narrative Images from the original note were not included. [facility] OUTPATIENT VISIT DATE February 28, 2024 OUTPATIENT VISIT TYPE ESTABLISHED PRIMARY CARE PHYSICIAN: Rachael Canela, [address] [place] [address] CHIEF COMPLAINT: Follow-up Last visit with me: Nov 2023 HISTORY OF PRESENT ILLNESS: Ms. Ramos is a 73 year old female, seen in cardiology clinic today to for follow-up. At last visit, she was noted to be volume overloaded. Recommended starting Aldactazide and Farxiga, but she was unable to afford Farxiga. Since last visit, Doing well, no specific CV symptoms. Has lost around 6 pounds since prior visit. Diet: Overall well balanced. Otherwise she denies [...] since then, but intermittent palpitations. Moderate TR PHYSICAL EXAMINATION: BP 120/77 Pulse 64 Wt 57.3 kg (126 lb 5.2 oz) BMI 21.68 kg/m General: No acute distress, appears comfortable HEENT: no bruits, no JVD Pulmonary/chest: CTA b/L. CVS: Normal S1 and S2, Regular rhythm, normal rate. Soft 2/6 early systolic murmur, RUSB. Central and peripheral pulses 2+ B/L, no carotid or abdominal bruits. Abdomen: Soft, non-tender, non-distended. Bowel sounds normal Extremities: skin changes consistent with chronic venous insufficiency, wearing compressions, no edema today Neuro: AAOx4 Psych: Normal mood and affect Ambulatory monitor from December 2023 reviewed and discussed with patient, heart rate range 46 to 203 bpm, average heart rate 73 bpm. 1 run of ventricular tachycardia with 13 beats, multiple SVT runs, around 11% PVCs. Echocardiogram December 27, 2023 reviewed and discussed with patient. LVEF 66%, grade 2 diastolic dysfunction, dilated RV, moderate, 2-3+ tricuspid regurgitation, gradients across the aortic valve 17/9 mmHg with DVI of 0.51. RVSP 30 mmHg. PAST MEDICAL HISTORY Diagnosis Date Aortic stenosis Ascending aortic aneurysm (HCC) Degenerative disc disease, lumbar Heart murmur Hypertension Hypothyroidism Osteopenia Stroke (cerebrum) ([facility]) 12/07/2014 PAST SURGICAL HISTORY Procedure Laterality Date [...] HIT Sulfa (Sulfonamide * Rash CURRENT MEDICATIONS: LATANOPROST OPHTHALMIC^Use 1 Drop in eyes once daily.^Disp: ^Rfl: Magnesium 250 mg tab^Take 250 mg by mouth once daily.^Disp: ^Rfl: spironolactone-hctz 25/25 (ALDACTAZIDE) 25-25 mg per tablet^Take 0.5 tablets by mouth once daily.^Disp: 45 tablet^Rfl: 3 metoprolol succinate ER (TOPROL XL) 50 mg 24 hr tablet^Take 1 tablet by mouth two times a day.^Disp: 180 tablet^Rfl: 3 atorvastatin (LIPITOR) 10 mg tablet^Take 10 mg by mouth once daily.^Disp: ^Rfl: cholecalciferol, Vitamin D3, (VITAMIN D3) 1,250 mcg (50,000 unit) cap capsule^Take 50,000 Units by mouth one time a week.^Disp: ^Rfl: levothyroxine (SYNTHROID) 75 mcg tablet^Take 1 tablet by mouth daily before breakfast.^Disp: 90 tablet^Rfl: 3 Amoxicillin 500 mg tablet^Take 4 tablets by mouth 30-60 minutes before dental procedure^Disp: 4 tablet^Rfl: 11 timolol/dorzolamide/latanop/PF (DGENKQK-VIGCZDHIQD-PMIQGOD,PF,) 0.5-2-0.005 % drop^Use 1 Drop in eyes every evening.^Disp: ^Rfl: (Patient not taking: Reported on 02/28/2024) acetaminophen (TYLENOL) 325 mg tablet^Take 2 tablets by mouth every 6 hours as needed for Pain (DO NOT EXCEED 4,000 MG IN 24 HOUR PERIOD).^Disp: ^Rfl: IMPRESSION/RECOMMENDATIONS: S/p AVR and aortic root repair for bicuspid aortic valve 11/2014. Echocardiogram December 27, 2023 -LVEF around 66 %, RV is mildly dilated and there is moderate TR, normal RA pressure. This was new compared to prior echocardiogram. She was started on Aldactazide and SGLT2i at that visit, but was subsequently unable to afford SGLT2i. prosthetic aortic valve functioning well. Pre-op cath 2014 with angiographically normal coronaries. Chronic heart failure with preserved EF, .ACC/AHA class C, NYHA class II. Dry weight at this time likely around 126 pounds, now euvolemic and at dry weight Primary Hypertension overall controlled Hyperlipidemia, well controlled based on labs from October 2023 in Care Everywhere Postoperative atrial flutter, no documented recurrence Palpitations, deviously coincided with episodes of SVt by monitoring. Currently controlled on BB PVCs, symptoms are currently controlled, monitoring for December 2023 with 11% PVC burden, normal LVEF. Will monitor for now. Venous insufficiency, B/L LE. Currently controlled with compressions Continue Toprol-XL to 50 mg twice daily Continue atorvastatin 10 mg daily. Continue magnesium supplementation at 250 mg daily Continue Aldactone/hydrochlorothiazide 25 mg / 25 mg-half tablet daily Was unable to afford SGLT2 I Given a history of bicuspid aortic valve and ascending aortic aneurysm, indication for screening of first degree family members discussed with patient in prior visits. She has an adult son and has discussed this with him. Antibiotics-amoxicillin 2 gm 30 mins prior to dental procedures. Lasix 20 mg daily as needed for worsening leg swelling, weight gain more than 5 pounds for 3 consecutive days. BMP, proBNP prior to next follow-up along with echocardiogram Scheduled for routine colonoscopy. Overall medically optimized to proceed with colonoscopy as needed, would recommend low-volume prep if possible to avoid decompensated heart failure. Follow-up in 6 months Your dry weight (weight when you do not retain fluids) is 126 lbs Weigh yourself every morning. If weight is more than 5 lbs above your dry weight for 3 days in a row, take 20 mg of lasix once. Limit sodium to 9351-1030 mg /day Limit total fluid to 50-60 Oz/day Andres Boyd MD documented in this encounter [facility] 12-28-2023 Miscellaneous Notes Agree with recommendation. Continue Aldactazide Hold off on the Farxiga for now, unfortunately the alternative is also similarly expensive, but okay to hold off on this class of medication at this time Spoke to pt on phone, above information given with verbalized understanding Pt saw Dr. Boyd yesterday in clinic Documented plan: Stop hydrochlorothiazide, replace days with Aldactone/hydrochlorothiazide 25 mg / 25 mg-half tablet daily Farxiga 5 mg daily, if affordable Pt updates FARXIGA is too expensive ALDACTAZIDE is covered, no cost issues there Pt asking if you can prescribe an Alternative to the Farxiga? 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 She stopped taking her HCTZ as directed.. I told her to go ahead and start the Aldactone/hydrochlorothiazide ...(unless Provider advises otherwise) ... Please update pt with what you prescribe in place of Farxiga, thanks Try [phone] land line (first) Then CELL [phone] vmx/mycharts are okay documented in this encounter [facility] 12-28-2023 Miscellaneous Notes Duplicate Zena is calling Andres Byod MD today with concern regarding Medication Problem Patient has been identified by name and birthdate. Duration of symptoms: N/A Person calling: self Call patient at: at home [phone] (home) [phone] (cell) Was an appointment scheduled: No Patient medication is not cover by her insurance for the [facility] ,can Dr. Boyd find another medication that maybe lower cost and on her insurance plan . Thank you so much Closing statement: Renetta Duron PSS documented in this encounter [facility] 12-27-2023 Note HNO ID: [id number] Author: ANDRES BOYD MD Service: ? Author Type: Physician Type: Progress Notes Filed: 12/27/2023 10:28 Note Text: [facility] OUTPATIENT VISIT DATE December 27, 2023 OUTPATIENT VISIT TYPE ESTABLISHED PRIMARY CARE PHYSICIAN: Rachael Canela, DO [address] [place] [address] CHIEF COMPLAINT: Follow-up Last visit with me: May 2023 HISTORY OF PRESENT ILLNESS: Ms. Ramos is a 73 year old female, seen in cardiology clinic today to for follow-up. Since last visit, Doing well, palpitations helped with higher dose of metoprolol Otherwise denies any new cardiovascular symptoms today Diet: Overall well balanced. Otherwise she denies [...] since then, but intermittent palpitations. Moderate TR PHYSICAL EXAMINATION: BP 114/55 Pulse 69 Wt 59.9 kg (132 lb) BMI 22.66 kg/m? General: No acute distress, appears comfortable HEENT: no bruits, TR pulsations noted today Pulmonary/chest: CTA b/L. CVS: Normal S1 and S2, Regular rhythm, normal rate. Soft 2/6 early systolic murmur, RUSB. Central and peripheral pulses 2+ B/L, no carotid or abdominal bruits. Abdomen: Soft, non-tender, non-distended. Bowel sounds normal Extremities: skin changes consistent with chronic venous insufficiency, wearing compressions, 1+ edema to above ankle Neuro: AAOx4 Psych: Normal mood and affect EKG done in clinic and I personally reviewed today. Normal sinus rhythm, frequent premature ventricular complexes in a pattern of bigeminy. Septal infarct, old Echocardiogram today, December 27, 2023 reviewed and discussed with patient. LVEF 66%, grade 2 diastolic dysfunction, dilated RV, moderate, 2-3+ tricuspid regurgitation, gradients across the aortic valve 17/9 mmHg with DVI of 0.51. RVSP 30 mmHg. PAST MEDICAL HISTORY Diagnosis Date Aortic stenosis [...] HIT Sulfa (Sulfonamide * Rash CURRENT MEDICATIONS: Magnesium 250 mg tabTake 250 mg by mouth once daily.Disp: Rfl: metoprolol succinate ER (TOPROL XL) 50 mg 24 hr tabletTake 1 tablet by mouth two times a day.Disp: 180 tabletRfl: 3 timolol/dorzolamide/latanop/PF (ZLJRDOI-JFGMFQNTRM-WCXRCHV,PF,) 0.5-2-0.005 % dropUse 1 Drop in eyes every evening.Disp: Rfl: hydroCHLOROthiazide (HYDRODIURIL, ESIDRIX) 12.5 mg capsuleTake 1 capsule by mouth daily after breakfast.Disp: 90 capsuleRfl: 3 atorvastatin (LIPITOR) 10 mg tabletTake 10 mg by mouth once daily.Disp: Rfl: cholecalciferol, Vitamin D3, (VITAMIN D3) 1,250 mcg (50,000 unit) cap capsuleTake 50,000 Units by mouth one time a week.Disp: Rfl: levothyroxine (SYNTHROID) 75 mcg tabletTake 1 tablet by mouth daily before breakfast.Disp: 90 tabletRfl: 3 Amoxicillin 500 mg tabletTake 4 tablets by mouth 30-60 minutes before dental procedureDisp: 4 tabletRfl: 11 acetaminophen (TYLENOL) 325 mg tabletTake 2 tablets by mouth every 6 hours as needed for Pain (DO NOT EXCEED 4,000 MG IN 24 HOUR PERIOD).Disp: Rfl: IMPRESSION/RECOMMENDATIONS: S/p AVR and aortic root repair for bicuspid aortic valve 11/2014. Echocardiogram today, December 27, 2023 reviewed and discussed with patient.-LVEF around 66 %, RV is mildly dilated and there is moderate TR, normal RA pressure. This is new compared to prior echocardiogram. Prosthetic aortic valve functioning well. Pre-op cath 2014 with angiographically normal coronaries. Acute on chronic heart failure with preserved EF, appears to be mildly volume overloaded today with increased severity of TR, TR pulsations in neck and mild edema bilateral lower extremities.ACC/AHA class C, NYHA class (more content not included)... [facility] 12-27-2023 Nurse Note EVENT MONITOR DISPOSABLE PATCH INSTRUCTIONS Patient Name: Lesvai Ramos [facility] Number: [id number] Skin prepped and cleansed with alcohol Patch secured to prepped area Monitor Activated Serial #: [id number] Patient Instructed: Prescribed order timeframe Bathing guidelines Usage of event button and diary documentation Return of monitor at the end of prescribed order Call with problems [phone] or [phone] ext. [phone] Patient expresses a good understanding of instructions Chyna White MA documented in this encounter [facility] 12-27-2023 Instructions Andres Byod MD - 12/27/2023 10:17 AM EST Blood work today STOP Hydrochlorothiaze Start Aldactazide 25-25 mg -Half tablet daily in the morning Start Farxiga 5 mg (if reasonable copay) Repeat blood work in 3 weeks Monitor today for 2 weeks See you again in 8-9 weeks. Andres Boyd MD documented in this encounter [facility] 12-27-2023 History of Present illness Narrative Images from the original note were not included. [facility] OUTPATIENT VISIT DATE December 27, 2023 OUTPATIENT VISIT TYPE ESTABLISHED PRIMARY CARE PHYSICIAN: Rachael Canela DO [address] [place] [address] CHIEF COMPLAINT: Follow-up Last visit with me: May 2023 HISTORY OF PRESENT ILLNESS: Ms. Ramos is a 73 year old female, seen in cardiology clinic today to for follow-up. Since last visit, Doing well, palpitations helped with higher dose of metoprolol Otherwise denies any new cardiovascular symptoms today Diet: Overall well balanced. Otherwise she denies [...] since then, but intermittent palpitations. Moderate TR PHYSICAL EXAMINATION: BP 114/55 Pulse 69 Wt 59.9 kg (132 lb) BMI 22.66 kg/m General: No acute distress, appears comfortable HEENT: no bruits, TR pulsations noted today Pulmonary/chest: CTA b/L. CVS: Normal S1 and S2, Regular rhythm, normal rate. Soft 2/6 early systolic murmur, RUSB. Central and peripheral pulses 2+ B/L, no carotid or abdominal bruits. Abdomen: Soft, non-tender, non-distended. Bowel sounds normal Extremities: skin changes consistent with chronic venous insufficiency, wearing compressions, 1+ edema to above ankle Neuro: AAOx4 Psych: Normal mood and affect EKG done in clinic and I personally reviewed today. Normal sinus rhythm, frequent premature ventricular complexes in a pattern of bigeminy. Septal infarct, old Echocardiogram today, December 27, 2023 reviewed and discussed with patient. LVEF 66%, grade 2 diastolic dysfunction, dilated RV, moderate, 2-3+ tricuspid regurgitation, gradients across the aortic valve 17/9 mmHg with DVI of 0.51. RVSP 30 mmHg. PAST MEDICAL HISTORY Diagnosis Date Aortic stenosis [...] HIT Sulfa (Sulfonamide * Rash CURRENT MEDICATIONS: Magnesium 250 mg tab^Take 250 mg by mouth once daily.^Disp: ^Rfl: metoprolol succinate ER (TOPROL XL) 50 mg 24 hr tablet^Take 1 tablet by mouth two times a day.^Disp: 180 tablet^Rfl: 3 timolol/dorzolamide/latanop/PF (ZRLOJMC-WADZEMACBL-BEYGMVZ,PF,) 0.5-2-0.005 % drop^Use 1 Drop in eyes every evening.^Disp: ^Rfl: hydroCHLOROthiazide (HYDRODIURIL, ESIDRIX) 12.5 mg capsule^Take 1 capsule by mouth daily after breakfast.^Disp: 90 capsule^Rfl: 3 atorvastatin (LIPITOR) 10 mg tablet^Take 10 mg by mouth once daily.^Disp: ^Rfl: cholecalciferol, Vitamin D3, (VITAMIN D3) 1,250 mcg (50,000 unit) cap capsule^Take 50,000 Units by mouth one time a week.^Disp: ^Rfl: levothyroxine (SYNTHROID) 75 mcg tablet^Take 1 tablet by mouth daily before breakfast.^Disp: 90 tablet^Rfl: 3 Amoxicillin 500 mg tablet^Take 4 tablets by mouth 30-60 minutes before dental procedure^Disp: 4 tablet^Rfl: 11 acetaminophen (TYLENOL) 325 mg tablet^Take 2 tablets by mouth every 6 hours as needed for Pain (DO NOT EXCEED 4,000 MG IN 24 HOUR PERIOD).^Disp: ^Rfl: IMPRESSION/RECOMMENDATIONS: S/p AVR and aortic root repair for bicuspid aortic valve 11/2014. Echocardiogram today, December 27, 2023 reviewed and discussed with patient.-LVEF around 66 %, RV is mildly dilated and there is moderate TR, normal RA pressure. This is new compared to prior echocardiogram. Prosthetic aortic valve functioning well. Pre-op cath 2014 with angiographically normal coronaries. Acute on chronic heart failure with preserved EF, appears to be mildly volume overloaded today with increased severity of TR, TR pulsations in neck and mild edema bilateral lower extremities.ACC/AHA class C, NYHA class II. Dry weight at this time likely around 128 pounds, weighs 132 pounds in clinic today Primary Hypertension overall controlled Hyperlipidemia, well controlled based on labs from October 2023 in Care Everywhere Postoperative atrial flutter, no documented recurrence Palpitations, deviously coincided with episodes of SVt by monitoring. Currently controlled on BB PVCs, ventricular bigeminy by EKG today. Recently started on hydrochlorothiazide for hypertension, most recent CMP from October 2023 in Care Everywhere reviewed, low normal potassium. Venous insufficiency, B/L LE. Continue Toprol-XL to 50 mg twice daily Continue atorvastatin 10 mg daily. Continue magnesium supplementation at 250 mg daily Stop hydrochlorothiazide, replace days with Aldactone/hydrochlorothiazide 25 mg / 25 mg-half tablet daily Farxiga 5 mg daily, if affordable Zio for 2 weeks to evaluate burden of PVCs. BMP today, followed by repeat BMP in 3 weeks after switching to Aldactazide Given a history of bicuspid aortic valve and ascending aortic aneurysm, indication for screening of first degree family members discussed with patient in prior visits. She has an adult son and has discussed this with him. Antibiotics-amoxicillin 2 gm 30 mins prior to dental procedures. Follow-up in 8 to 9 weeks Andres Boyd MD documented in this encounter [facility] 11-28-2023 History of Present illness Narrative Subjective SUBJECTIVE: Patient ID: Lesvia Ramos is a 73 y.o. female who presents for a Medicare Annual Wellness exam. HPI The following portions of the patient's history were reviewed and updated as appropriate: allergies, current medications, past family history, past medical history, past social history, past surgical history and problem list. AWV FLOWSHEET : Lifestyle Assessment Do you smoke or use smokeless tobacco?: No If you smoke or use smokeless tobacco, are you ready to quit?: NA Are you exposed to secondhand smoke?: No On average, how many drinks of alcohol do you consume in a week?: 2 - 5 Do you exercise for 30 or more minutes on average at least 3 days a week?: Sometimes Do you have any tooth, denture, or oral problems?: No Do you snore or has anyone told you that you snore?: (!) Yes Do you try to eat a balanced diet?: Yes Do you experience leakage of urine, also known as urinary incontinence?: (!) Sometimes Do you have difficulty performing any of these activities? (check all that apply): None Do you have difficulty performing any of these activities? (check all that apply): None Fall Risk Fall Risk Assessment Completed?: Yes Have you fallen in the past year?: No Are you worried about falling?: No Do you feel unsteady when standing or walking?: No Risk Stratification: Low Risk Depression Screening Little interest or pleasure in doing things: Not at all Feeling down, depressed, or hopeless: Not at all Trouble falling or staying asleep, or sleeping too much: Not at all Feeling tired or having little energy: Not at all Poor appetite or overeating: Not at all Feeling bad about yourself - or that you are a failure or have let yourself or your family down: Not at all Trouble concentrating on things, such as reading the newspaper or watching television: Not at all Moving or speaking so slowly that other people could have noticed. Or the opposite - being so fidgety or restless that you have been moving around a lot more than usual: Not at all Thoughts that you would be better off , or of hurting yourself in some way: Not at all PEG Scale Safety Assessment Do you have throw rugs on the floor?: (!) Yes Do you feel safe at your home?: Yes Do you feel unsteady when walking?: No Are you having difficulty with driving?: No Do you have trouble seeing?: No What assistive device do you use? (check all that apply): None Hearing Assessment Do you strain or struggle to hear/understand conversations?: (!) Yes Do you have trouble hearing the television or radio when others do not?: (!) Yes Does your family ever voice concerns about your hearing?: No Do you wear hearing aid/s?: No Personal Health During the past 4 weeks, how would you rate your overall health?: Very Good Do you understand how to take all of your medications?: Yes How confident are you that you can control and manage most of your health problems?: Very confident In the past 12 months, how many times have you been hospitalized?: None End of Life Planning Do you have a living will?: Yes Do you have a durable power of deputy commonwealth's attorney?: Yes Cognitive Screening Do you have trouble remembering or recalling facts or events?: No Do family members or caregivers report that you have difficulty remembering things?: No 6-ClT: Normal REVIEW OF SYSTEMS: Review of Systems Objective PHYSICAL EXAMINATION: There were no vitals filed for this visit. Physical Exam Assessment/Plan ASSESSMENT/PLAN Lesvia was seen today for medicare annual wellness. Diagnoses and all orders for this visit: Encounter for subsequent annual wellness visit (AWV) in Medicare patient Colon cancer screening - Colonoscopy; Future Encounter for screening mammogram for malignant neoplasm of breast - Mammography screening bilateral with CAD; Future Postmenopausal status - Dexa scan central skeletal; Future Screening for osteoporosis - Dexa scan central skeletal; Future Return in about 1 year (around 11/28/2024). documented in this encounter [facility] 11-28-2023 Hospital Discharge instructions Patient Education 11/28/2023 11:47:53 Kidney Stones Kidney Stones Kidney stones are solid, rock-like deposits that form inside of the kidneys. The kidneys are a pair of organs that make urine. A kidney stone may form in a kidney and move into other parts of the urinary tract, including the tubes that connect the kidneys to the bladder (ureters), the bladder, and the tube that carries urine out of the body (urethra). As the stone moves through these areas, it can cause intense pain and block the flow of urine. Kidney stones are created when high levels of certain minerals are found in the urine. The stones are usually passed out of the body through urination, but in some cases, medical treatment may be needed to remove them. What are the causes? Kidney stones may be caused by: A condition in which certain glands produce too much parathyroid hormone (primary hyperparathyroidism), which causes too much calcium buildup in the blood. A buildup of uric acid crystals in the bladder (hyperuricosuria). Uric acid is a chemical that the body produces when you eat certain foods. It usually leaves the body in the urine. Narrowing (stricture) of one or both of the ureters. A kidney blockage that is present at (congenital obstruction). Past surgery on the kidney or the ureters. What increases the risk? The following factors may make you more likely to develop this condition: Having had a kidney stone in the past. Having a family history of kidney stones. Not drinking enough water. Eating a diet that is high in protein, salt (sodium), or sugar. Being overweight or obese. What are the signs or symptoms? Symptoms of a kidney stone may include: Pain in the side of the abdomen, right below the ribs (flank pain). Pain usually spreads (radiates) to the groin. Needing to urinate often or urgently. Painful urination. Blood in the urine (hematuria). Nausea. Vomiting. Fever and chills. How is this diagnosed? This condition may be diagnosed based on: Your symptoms and medical history. A physical exam. Blood tests. Urine tests. These may be done before and after the stone passes out of your body through urination. Imaging tests, such as a CT scan, abdominal X-ray, or ultrasound. A procedure to examine the inside of the bladder (cystoscopy). How is this treated? Treatment for kidney stones depends on the size, location, and makeup of the stones. Kidney stones will often pass out of the body through urination. You may need to: Increase your fluid intake to help pass the stone. In some cases, you may be given fluids through an IV and may need to be monitored in the hospital. Take medicine for pain. Make changes in your diet to help prevent kidney stones from coming back. Sometimes, procedures are needed to remove a kidney stone. This may involve: A procedure to break up kidney stones using: ?A focused beam of light (laser therapy). ?Shock waves (extracorporeal shock wave lithotripsy). Surgery to remove kidney stones. This may be needed if you have severe pain or have stones that block your urinary tract. Follow these instructions at home: Medicines Take tusk-hke-wkpnwhs and prescription medicines only as told by your health care provider. Ask your health care provider if the medicine prescribed to you requires you to avoid driving or using heavy machinery. Eating and drinking Drink enough fluid to keep your urine pale yellow. You may be instructed to drink at least 8 10 glasses of water each day. This will help you pass the kidney stone. If directed, change your diet. This may include: ?Limiting how much sodium you eat. ?Eating more fruits and vegetables. ?Limiting how much animal protein you eat. Animal proteins include red meat, poultry, fish, and eggs. ?Eating a normal amount of calcium (1,000 1,300 mg per day). Follow instructions from your health care provider about eating or drinking restrictions. General instructions Collect urine samples as told by your health care provider. You may need to collect a urine sample: ?24 hours after you pass the stone. ?8 12 weeks after you pass the kidney stone, and every 6 12 months after that. Strain your urine every time you urinate, for as long as directed. Use the strainer that your health care provider recommends. Do not throw out the kidney stone after passing it. Keep the stone so it can be tested by your health care provider. Testing the makeup of your kidney stone may help prevent you from getting kidney stones in the future. Keep all follow-up visits. You may need follow-up X-rays or ultrasounds to make sure that your stone has passed. How is this prevented? To prevent another kidney stone: Drink enough fluid to keep your urine pale yellow. This is the best way to prevent kidney stones. Eat a healthy diet. Follow recommendations from your health care provider about foods to avoid. Recommendations vary depending on the type of kidney stone that you have. You may be instructed to eat a low-protein diet. Maintain a healthy weight. Where to find more information National Kidney Foundation (NKF): www.kidney.org [facility] Care Foundation (UCF): www.urologyhealth.org Contact a health care provider if: You have pain that gets worse or does not get better with medicine. Get help right away if: You have a fever or chills. You develop severe pain. You develop new abdominal pain. You faint. You are unable to urinate. Summary Kidney stones are solid, rock-like deposits that form inside of the kidneys. Kidney stones can cause nausea, vomiting, blood in the urine, abdominal pain, and the urge to urinate often. Treatment for kidney stones depends on the size, location, and makeup of the stones. Kidney stones will often pass out of the body through urination. Kidney stones can be prevented by drinking enough fluids, eating a healthy diet, and maintaining a healthy weight. This information is not intended to replace advice given to you by your health care provider. Make sure you discuss any questions you have with your health care provider. Document Revised: 01/25/2023 Document Reviewed: 01/25/2023 [employer] Patient Education 2022 [employer] (Formerly [employer]). 11/28/2023 11:47:52 Dietary Guidelines to Help Prevent Kidney Stones Dietary Guidelines to Help Prevent Kidney Stones Kidney stones are deposits of minerals and salts that form inside your kidneys. Your risk of developing kidney stones may be greater depending on your diet, your lifestyle, the medicines you take, and whether you have certain medical conditions. Most people can lower their risks of developing kidney stones by following these dietary guidelines. Your dietitian may give you more specific instructions depending on your overall health and the type of kidney stones you tend to develop. What are tips for following this plan? Reading food labels Choose foods with no salt added or low-salt labels. Limit your salt (sodium) intake to less than 1,500 mg a day. Choose foods with calcium for each meal and snack. Try to eat about 300 mg of calcium at each meal. Foods that contain 200 500 mg of calcium a serving include: ?8 oz (237 mL) of milk, reswnmm-tiuzyvkfcfat-igxxk milk, and calcium-fortifiedfruit juice. Calcium-fortified means that calcium has been added to these drinks. ?8 oz (237 mL) of kefir, yogurt, and soy yogurt. ?4 oz (114 g) of tofu. ?1 oz (28 g) of cheese. ?1 cup (150 g) of dried figs. ?1 cup (91 g) of cooked broccoli. ?One 3 oz (85 g) can of sardines or mackerel. Most people need 1,000 1,500 mg of calcium a day. Talk to your dietitian about how much calcium is recommended for you. Shopping Buy plenty of fresh fruits and vegetables. Most people do not need to avoid fruits and vegetables, even if these foods contain nutrients that may contribute to kidney stones. When shopping for convenience foods, choose: ?Whole pieces of fruit. ?Pre-made salads with dressing on the side. ?Low-fat fruit and yogurt smoothies. Avoid buying frozen meals or prepared deli foods. These can be high in sodium. Look for foods with live cultures, such as yogurt and kefir. Choose high-fiber grains, such as whole-wheat breads, oat bran, and wheat cereals. Cooking Do not add salt to food when cooking. Place a salt shaker on the table and allow each person to add their own salt to taste. Use vegetable protein, such as beans, textured vegetable protein (TVP), or tofu, instead of meat in pasta, casseroles, and soups. Meal planning Eat less salt, if told by your dietitian. To do this: ?Avoid eating processed or pre-made food. ?Avoid eating fast food. Eat less animal protein, including cheese, meat, poultry, or fish, if told by your dietitian. To do this: ?Limit the number of times you have meat, poultry, fish, or cheese each week. Eat a diet free of meat at least 2 days a week. ?Eat only one serving each day of meat, poultry, fish, or seafood. ?When you prepare animal proteins, cut pieces into small portion sizes. For most meat and fish, one serving is about the size of the palm of your hand. Eat at least five servings of fresh fruits and vegetables each day. To do this: ?Keep fruits and vegetables on hand for snacks. ?Eat one piece of fruit or a handful of berries with breakfast. ?Have a salad and fruit at lunch. ?Have two kinds of vegetables at dinner. You may be told to limit foods that are high in a substance called oxalate. These include: ?Spinach (cooked), rhubarb, beets, sweet potatoes, and Dutch chard. ?Peanuts. ?Potato chips, libyan fries, and baked potatoes with skin on. ?Nuts and nut products. ?Chocolate. If you regularly take a diuretic medicine, make sure to eat at least 1 or 2 servings of fruits or vegetables that are high in potassium each day. These include: ?Avocado. ?Banana. ?[place], prune, carrot, or tomato juice. ?Baked potato. ?Cabbage. ?Beans and split peas. Lifestyle Drink enough fluid to keep your urine pale yellow. This is the most important thing you can do. Spread your fluid intake throughout the day. If you drink alcohol: ?Limit how much you have to: ?0 1 drink a day for women who are not . ?0 2 drinks a day for men. ?Know how much alcohol is in your drink. In the [place] one drink equals one 12 oz bottle of beer (355 mL), one 5 oz glass of wine (148 mL), or one 1 oz glass of hard liquor (44 mL). Lose weight if told by your health care provider. Work with your dietitian to find an eating plan and weight loss strategies that work best for you. General information Talk to your health care provider and dietitian about taking daily supplements. Depending on your health and the cause of your kidney stones, you may be told: ?Do not take high-dose supplements of vitamin C (1,000 mg a day or more). ?To take a calcium supplement. ?To take a daily probiotic supplement. ?To take other supplements such as magnesium, fish oil, or vitamin B6. Take hpkh-gty-txlayze and prescription medicines only as told by your health care provider. These include supplements. What foods should I limit? Limit your intake of the following foods, or eat them as told by your dietitian. Vegetables Spinach. Rhubarb. Beets. Canned vegetables. Pickles. Olives. Baked potatoes with skin. Grains Wheat bran. Baked goods. Salted crackers. Cereals high in sugar. Meats and other proteins Nuts. Nut butters. Large portions of meat, poultry, or fish. Salted, precooked, or cured meats, such as sausages, meat loaves, and hot dogs. Dairy Cheeses. Beverages Regular soft drinks. Regular vegetable juice. Seasonings and condiments Seasoning blends with salt. Salad dressings. Soy sauce. Ketchup. Barbecue sauce. Other foods Canned soups. Canned pasta sauce. Casseroles. Pizza. Lasagna. Frozen meals. Potato chips. Urdu fries. The items listed above may not be a complete list of foods and beverages you should limit. Contact a dietitian for more information. What foods should I avoid? Talk to your dietitian about specific foods you should avoid based on the type of kidney stones you have and your overall health. Fruits Grapefruit. The item listed above may not be a complete list of foods and beverages you should avoid. Contact a dietitian for more information. Summary Kidney stones are deposits of minerals and salts that form inside your kidneys. You can lower your risk of kidney stones by making changes to your diet. The most important thing you can do is drink enough fluid. Drink enough fluid to keep your urine pale yellow. Talk to your dietitian about how much calcium you should have each day, and eat less salt and animal protein as told by your dietitian. This information is not intended to replace advice given to you by your health care provider. Make sure you discuss any questions you have with your health care provider. Document Revised: 01/26/2023 Document Reviewed: 01/26/2023 [employer] Patient Education 2022 [employer] (Formerly [employer]). 11/28/2023 11:47:36 Kegel Exercises Kegel Exercises Kegel exercises can help strengthen your pelvic floor muscles. The pelvic floor is a group of muscles that support your rectum, small intestine, and bladder. In females, pelvic floor muscles also help support the uterus. These muscles help you control the flow of urine and stool (feces). Kegel exercises are painless and simple. They do not require any equipment. Your provider may suggest Kegel exercises to: Improve bladder and bowel control. Improve sexual response. Improve weak pelvic floor muscles after surgery to remove the uterus (hysterectomy) or after , in females. Improve weak pelvic floor muscles after prostate gland removal or surgery, in males. Kegel exercises involve squeezing your pelvic floor muscles. These are the same muscles you squeeze when you try to stop the flow of urine or keep from passing gas. The exercises can be done while sitting, standing, or lying down, but it is best to vary your position. Ask your health care provider which exercises are safe for you. Do exercises exactly as told by your health care provider and adjust them as directed. Do not begin these exercises until told by your health care provider. Exercises How to do Kegel exercises: 1.Squeeze your pelvic floor muscles tight. You should feel a tight lift in your rectal area. If you are a female, you should also feel a tightness in your vaginal area. Keep your stomach, buttocks, and legs relaxed. 2.Hold the muscles tight for up to 10 seconds. 3.Breathe normally. 4.Relax your muscles for up to 10 seconds. 5.Repeat as told by your health care provider. Repeat this exercise daily as told by your health care provider. Continue to do this exercise for at least 4 6 weeks, or for as long as told by your health care provider. You may be referred to a physical therapist who can help you learn more about how to do Kegel exercises. Depending on your condition, your health care provider may recommend: Varying how long you squeeze your muscles. Doing several sets of exercises every day. Doing exercises for several weeks. Making Kegel exercises a part of your regular exercise routine. This information is not intended to replace advice given to you by your health care provider. Make sure you discuss any questions you have with your health care provider. Document Revised: 02/24/2022 Document Reviewed: 02/24/2022 [employer] Patient Education 2022 [employer] (Formerly [employer]). Follow Up Care 12/09/2022 09:38:13 With:DAT Bustillos APRN, Radha Guo, DONNA, URL Address: When:Within 1 Year(s) Comments:w/ [facility] 11-10-2023 History of Present illness Narrative IM PROGRESS NOTE Patient - [facility] Ramos Age - 73 [facility] 1950 [id number] ASSESSMENT & PLAN 1. Essential hypertension -goals [...] cardiovascular event (coronary or stroke or non-fatal PR or stroke) in next 10 years. -I [...] no changes today 5. 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-induced thrombocytopenia) ([facility]) -no active problem at this time. Subjective CARDIOVASCULAR FOLLOW-UP This is a follow up of a pre-existing problem. Blood pressures are being checked outside the office. Frequency: sporadic Readings have been normal. BP readings outside the office range from 120 - 129 mmHg systolic and 70 - 79 mmHg diastolic. The ASCVD Risk score (Kehinde DK, et al., 2019) failed to calculate for [...] Testing No results found. Rachael Canela DO., [facility] Physicians Office: [phone] documented in this encounter [facility] 11-06-2023 Miscellaneous Notes Has appt 11/10 would like short term sent in documented in this encounter [facility] 11-06-2023 Telephone encounter Note Has appt 11/10 would like short term sent in [facility] 08-28-2023 Miscellaneous Notes Last OV: 05/2023 Future appt noted: 11/2023 documented in this encounter [facility] 06-27-2023 Note HNO ID: [id number] Author: Andres Boyd MD Service: ? Author Type: Physician Type: Progress Notes Filed: 06/27/2023 9:33 AM Note Text: [facility] SE[facility] OF REGIONAL CARDIOLOGY OUTPATIENT VISIT DATE June 27, 2023 OUTPATIENT VISIT TYPE ESTABLISHED PRIMARY CARE PHYSICIAN: Rachael Canela, [address] [place] [address] CHIEF COMPLAINT: Follow-up Last visit with me: [...] Heart murmur Hypertension Hypothyroidism Osteopenia Stroke (cerebrum) ([facility]) 12/07/2014 PAST SURGICAL HISTORY Procedure Laterality Date [...] Sulfa (Sulfonamide * Rash CURRENT MEDICATIONS: timolol/dorzolamide/latanop/PF ([id number]-[id number],PF,) 0.5-2-0.005 % drop Use 1 Drop in eyes every evening. hydroCHLOROthiazide (HYDRODIURIL, ESIDRIX) 12.5 mg capsule Take 1 capsule by mouth daily after breakfast. metoprolol succinate ER (TOPROL XL) 25 mg 24 hr tablet TAKE 2 TABLETS BY MOUTH IN THE MORNING then TAKE 1 TABLET BY MOUTH IN THE EVENING at (more content not included)... [facility] 06-27-2023 History of Present illness Narrative Images from the original note were not included. [facility] OF [facility]IONAL CARDIOLOGY OUTPATIENT VISIT DATE June 27, 2023 OUTPATIENT VISIT TYPE ESTABLISHED PRIMARY CARE PHYSICIAN: Rachael Canela DO [address] [place] [address] CHIEF COMPLAINT: Follow-up Last visit with me: [...] Heart murmur Hypertension Hypothyroidism Osteopenia Stroke (cerebrum) ([facility]) 12/07/2014 PAST SURGICAL HISTORY Procedure Laterality Date [...] Sulfa (Sulfonamide * Rash CURRENT MEDICATIONS: timolol/dorzolamide/latanop/PF ([id number],PF,) 0.5-2-0.005 % drop Use 1 Drop in [...] Andres Boyd MD documented in this encounter [facility] 05-30-2023 Note HNO ID: [id number] Author: Indigo Saldaña, DO Service: ? Author [...] Diagnosis Date Aortic stenosis Ascending aortic aneurysm ([facility]) Degenerative disc disease, lumbar Heart murmur Hypertension Hypothyroidism Osteopenia Stroke (cerebrum) ([facility]) 12/07/2014 SOCIAL HISTORY: Tobacco Use: Never PHYSICAL [...] subacromial bursa Informed Consent Consent Obtained: Verbal [place] Protocol A moment to CARE was completed. [...] plan as detailed above. Indigo Saldaña DO [facility] 05-30-2023 Note HNO ID: [id number] Author: Izabella Brito RT(R) Service: Radiology Author [...] RT Rodrigo(R) May 30, 2023 9:01 AM [facility] 05-30-2023 History of Present illness Narrative [...] Diagnosis Date Aortic stenosis Ascending aortic aneurysm ([facility]) Degenerative disc disease, lumbar Heart murmur Hypertension Hypothyroidism Osteopenia Stroke (cerebrum) ([facility]) 12/07/2014 SOCIAL HISTORY: Tobacco Use: Never PHYSICAL [...] subacromial bursa Informed Consent Consent Obtained: Verbal [place] Protocol A moment to CARE was completed. [...] Indigo Saldaña DO documented in this encounter [facility] 05-30-2023 History of Present illness Narrative [...] 2023 9:01 AM documented in this encounter [facility] 05-03-2023 Miscellaneous Notes Risk Rating C: Monitor therapy Summary Nonsteroidal Anti-Inflammatory Agents may diminish the antihypertensive effect of BP meds Beta-Blockers--- take as little of the NSAID as possible. Monitor BP documented in this encounter [facility] 12-27-2022 History of Present illness Narrative Images from the original note were not included. [facility] Department of Cardiovascular Medicine SECTION [...] File Prior to Visit Medication Sig timolol/dorzolamide/latanop/PF ([id number],PF,) 0.5-2-0.005 % drop Use 1 Drop in [...] Comment: Indication for hospital admission: discharged from [facility] on 12/06 after having aortic valve replacement and repair of ascending aorta on 12/01/14. She was staying with family during the recovery period and overall was doing well. READMIT: Transferred from [facility] 12/07/14 after presenting with acute onset [...] . INR 2.2 DC to home today. arranged coumadin management with PCP Dr. Barron. f/u with Dr. Marley lunsford scheduled. -Left arm DVT. cont coumadin No f/u ultrasound needed per -h/o postop Afib. No recurrence. Continue toprol. -HTN. controlled Dispo: DC today. . Lives in [place], [place]. Coumadin to be managed by HIT (+) - 12/09/2014 (A priority) Comment: History: POHS as below 15 after prior heparin exposure (heart cath). R/A [...] to DC to home. f/u with DR. Marley lunsford scheduled. Dr. Barron to manage coumadin locally. [...] visit. This note was partially generated with [employer] voice recognition software and may contain errors, including spelling, grammar, syntax and misrecognition of what was dictated, that may not be fully corrected. I appreciate the opportunity to participate in this patient's care. Please do not hesitate to call my office if you have any questions. CONTACT INFORMATION: Nitza Mae APRN.CNP Adult Nurse Practitioner [facility] Department of Cardiovascular Medicine [facility] [place] [facility] Cardiology Consult Team documented in this encounter [facility] 12-19-2022 Miscellaneous Notes Last appt: 06/27/2022 Next appt: 12/27/2022 Requested Prescriptions Pending Prescriptions Disp Refills metoprolol succinate ER (TOPROL XL) 25 mg 24 hr tablet 270 tablet 3 Sig: TAKE 2 TABLETS BY MOUTH IN THE MORNING then TAKE 1 TABLET BY MOUTH IN THE EVENING documented in this encounter [facility] [facility] 12-09-2022 Hospital Discharge instructions Patient Education [...] nerve stimulation). For women, using a medical coding manager to prevent urine leaks. This is a [...] right after experiencing incontinence. General instructions Take mqrd-aaj-oronlpk and prescription medicines only as told by [...] 11/23/2005 Document Revised: 10/26/2018 Document Reviewed: 01/25/2018 [employer] Patient Education 2020 [employer] (Formerly [employer]). Follow Up Care 12/08/2021 14:35:27 With:IRMA RECINOS, India Yagn, URL Address: [address] [place], [place] [id number]- When: Unknown [facility] 06-02-2022 Miscellaneous Notes The following approved medication [...] in under 01/10/22 documented in this encounter [facility] 12-24-2020 History of Past i llness [...] at home, Called 911 transferred back to [facility]. Another brief episode of amnesia in the [...] Follow neurologic status closely Ischemic stroke diagnosed geraldine gustafson current admission 12/08/2014 12/09/2014 Stroke (cerebrum) 12/07/2014 12/09/2014 Nausea 12/04/2014 12/06/2014 Overview: resolved con't reglan for today then DC Stress hyperglycemia 12/03/2014 015 Overview: History: no hx of DM Assessment: stress hyperglycemia 2nd to [facility], no coverage x 24 hours Plan: -DC accuchecks and SSI. Acute postoperative pain 12/02/201401/2015 Overview: 12/02/2014 Analgesia plan - scheduled acetaminophen. 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 scenic artist Thrombocytopenia 12/02/2014 12/03/2014 Overview: 12/02/2014 Expected mild postop decrease in plt ct. No bleeding. Monitor Atelectasis/volume overload 12/02/2014 12/16/2014 Overview: History: 2nd to [facility] Assessment: CXR today, 12/03 with small bilateral pleural effusions & atelectasis. wt up from admission Plan: -encouraged to continue at home ez pep, coughing, deep breathing and ambulation. -DC on tapering dose of lasix Acute blood loss anemia 12/01/201401/2015 Overview: 12/02/2014 Hgb 8.4 on POD #1. [...] of this encounter (statuses as of 06/27/2023) [facility]02-25-[facility]21 History of Past illness Narrative* Problem [...] at home, Called 911 transferred back to [facility]. Another brief episode of amnesia in the [...] Follow neurologic status closely Ischemic stroke diagnosed geraldine gustafson current admission 12/08/2014 12/09/2014 Stroke (cerebrum) 12/07/2014 12/09/2014 Nausea 12/04/2014 12/06/2014 Overview: resolved con't reglan for today then DC Stress hyperglycemia 12/03/2014 015 Overview: History: no hx of DM Assessment: stress hyperglycemia 2nd to [facility], no coverage x 24 hours Plan: -DC accuchecks and SSI. Acute postoperative pain 12/02/201401/2015 Overview: 12/02/2014 Analgesia plan - scheduled acetaminophen. 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 scenic artist Thrombocytopenia 12/02/2014 12/03/2014 Overview: 12/02/2014 Expected mild [...] Cardiac Surgical prep: N/A SIGNATURE: Shelly Son BOOTH SUPERVISOR CHECKED BY: rashel DATE of SERVICE: 11/19/2014 TIME of SERVICE: 11:11 AM Thoracic facet syndrome 11/17/201105/31 Aortic stenosis 12/01/2014 Ascending aortic aneurysm Overview: S/p ascending repair documented as of this encounter (statuses as of 08/29/2023) [facility] History of Past illness Narrative* Problem [...] toprol XL. coumadin f/u with [facility] Dr. oRach Change in mental status 12/09/201412/01 Overview: History: 12/07/14 pt developed confusion at home, Called 911 transferred back to [facility]. Another brief episode of amnesia in the [...] Follow neurologic status closely Ischemic stroke diagnosed geraldine gustafson current admission 12/08/2014 12/09/2014 Stroke (cerebrum) 12/07/2014 12/09/2014 Nausea 12/04/2014 12/06/2014 Overview: resolved con't reglan for today then DC Stress hyperglycemia 12/03/2014 015 Overview: History: no hx of DM Assessment: stress hyperglycemia 2nd to [facility], no coverage x 24 hours Plan: -DC accuchecks and SSI. Acute postoperative pain 12/02/201401/2015 Overview: 12/02/2014 Analgesia plan - scheduled acetaminophen. 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 scenic artist Thrombocytopenia 12/02/2014 12/03/2014 Overview: 12/02/2014 Expected mild [...] Cardiac Surgical prep: N/A SIGNATURE: Shelly Son BOOTH SUPERVISOR CHECKED BY: rashel DATE of SERVICE: 11/19/2014 TIME of SERVICE: 11:11 AM Thoracic facet syndrome 11/17/201105/31 Aortic stenosis 12/01/2014 Ascending aortic aneurysm Overview: S/p ascending repair documented as of this encounter (statuses as of 09/04/2023) [facility] History of Past illness Narrative* Problem [...] at home, Called 911 transferred back to [facility]. Another brief episode of amnesia in the [...] Follow neurologic status closely Ischemic stroke diagnosed geraldine gustafson current admission 12/08/2014 12/09/2014 Stroke (cerebrum) 12/07/2014 12/09/2014 Nausea 12/04/2014 12/06/2014 Overview: resolved con't reglan for today then DC Stress hyperglycemia 12/03/2014 015 Overview: History: no hx of DM Assessment: stress hyperglycemia 2nd to [facility], no coverage x 24 hours Plan: -DC accuchecks and SSI. Acute postoperative pain 12/02/201401/2015 Overview: 12/02/2014 Analgesia plan - scheduled acetaminophen. 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 scenic artist Thrombocytopenia 12/02/2014 12/03/2014 Overview: 12/02/2014 Expected mild [...] [facility] PRE-OP CHECKLIST Surgeon: Jose Enrique Blcak M.D. Informed Consent Completed: Yes STS Score: [...] Cardiac Surgical prep: N/A SIGNATURE: Shelly Son BOOTH SUPERVISOR CHECKED BY: rashel DATE of SERVICE: 11/19/2014 TIME of SERVICE: 11:11 AM Thoracic facet syndrome 11/17/201105/31 Aortic stenosis 12/01/2014 Ascending aortic aneurysm Overview: S/p ascending repair documented as of this encounter (statuses as of 12/27/2023) [facility] History of Past illness Narrative* Problem [...] at home, Called 911 transferred back to [facility]. Another brief episode of amnesia in the [...] Follow neurologic status closely Ischemic stroke diagnosed geraldine gustafson current admission 12/08/2014 12/09/2014 Stroke (cerebrum) 12/07/2014 12/09/2014 Nausea 12/04/2014 12/06/2014 Overview: resolved con't reglan for today then DC Stress hyperglycemia 12/03/2014 015 Overview: History: no hx of DM Assessment: stress hyperglycemia 2nd to [facility], no coverage x 24 hours Plan: -DC accuchecks and SSI. Acute postoperative pain 12/02/201401/2015 Overview: 12/02/2014 Analgesia plan - scheduled acetaminophen. 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 scenic artist Thrombocytopenia 12/02/2014 12/03/2014 Overview: 12/02/2014 Expected mild [...] Cardiac Surgical prep: N/A SIGNATURE: Shelly Son BOOTH SUPERVISOR CHECKED BY: rashel DATE of SERVICE: 11/19/2014 TIME of SERVICE: 11:11 AM Thoracic facet syndrome 11/17/201105/31 Aortic stenosis 12/01/2014 Ascending aortic aneurysm Overview: S/p ascending repair documented as of this encounter (statuses as of 12/28/2023) [facility] History of Past illness Narrative* Problem Noted Date Resolved Date Malnutrition of moderate degree 12/24/2014 06/29/2021 Overview: History: 2nd to prolonged illness/hospitalization Assessment: nutrition evaluated and mod degree malnutrition Plan: -encourage oral intake at home, con't supplements at home if needed. Change in mental status 12/09/2014 12/20/19 15 Overview: History: 12/07/14 pt developed confusion at home, Called 911 transferred back to [facility]. Another brief episode of amnesia in the [...] - scheduled acetaminophen. 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 scenic artist Thrombocytopenia 12/02/2014 12/03/2014 Overview: 12/02/2014 Expected mild [...] Cardiac Surgical prep: N/A SIGNATURE: Shelly Son BOOTH SUPERVISOR CHECKED BY: rashel DATE of SERVICE: 11/19/2014 TIME of SERVICE: 11:11 AM Aortic stenosis 12/01/2014 Ascending aortic aneurysm 2014 Overview: S/p ascending repair documented as of this encounter (statuses as of 06/02/2022) [facility] History of Past illness Narrative* Problem Noted Date Resolved Date Malnutrition of moderate degree 12/24/2014 06/29/2021 Overview: History: 2nd to prolonged illness/hospitalization Assessment: nutrition evaluated and mod degree malnutrition Plan: -encourage oral intake at home, con't supplements at home if needed. Change in mental status 12/09/2014 12/20/19 Overview: History: 12/07/14 pt developed confusion at home, Called 911 transferred back to [facility]. Another brief episode of amnesia in the [...] - scheduled acetaminophen. 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 scenic artist Thrombocytopenia 12/02/2014 12/03/2014 Overview: 12/02/2014 Expected mild [...] Cardiac Surgical prep: N/A SIGNATURE: Shelly Son BOOTH SUPERVISOR CHECKED BY: rashel DATE of SERVICE: 11/19/2014 TIME of SERVICE: 11:11 AM Aortic stenosis 12/01/2014 Ascending aortic aneurysm 2014 Overview: S/p ascending repair documented as of this encounter (statuses as of 07/05/2022) [facility] History of Past illness Narrative* Problem Noted Date Resolved Date Malnutrition of moderate degree 12/24/2014 06/29/2021 Overview: History: 2nd to prolonged illness/hospitalization Assessment: nutrition evaluated and mod degree malnutrition Plan: -encourage oral intake at home, con't supplements at home if needed. Change in mental status 12/09/2014 12/20/19 Overview: History: 12/07/14 pt developed confusion at home, Called 911 transferred back to [facility]. Another brief episode of amnesia in the [...] - scheduled acetaminophen. 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 scenic artist Thrombocytopenia 12/02/2014 12/03/2014 Overview: 12/02/2014 Expected mild [...] No Cardiac Surgical prep: N/A SIGNATURE: Shelly Son, BOOTH SUPERVISOR CHECKED BY: rashel DATE of SERVICE: 11/19/2014 TIME of SERVICE: 11:11 AM Aortic stenosis 12/01/2014 Ascending aortic aneurysm 2014 Overview: S/p ascending repair documented as of this encounter (statuses as of 12/19/2022) [facility] History of Past illness Narrative* Problem Noted Date Resolved Date Malnutrition of moderate degree 12/24/2014 06/29/2021 Overview: History: 2nd to prolonged illness/hospitalization Assessment: nutrition evaluated and mod degree malnutrition Plan: -encourage oral intake at home, con't supplements at home if needed. Change in mental status 12/09/2014 12/20/19 15 Overview: History: 12/07/14 pt developed confusion at home, Called 911 transferred back to [facility]. Another brief episode of amnesia in the [...] - scheduled acetaminophen. 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 scenic artist Thrombocytopenia 12/02/2014 12/03/2014 Overview: 12/02/2014 Expected mild [...] No Cardiac Surgical prep: N/A SIGNATURE: Shelly Son, BOOTH SUPERVISOR CHECKED BY: rashel DATE of SERVICE: 11/19/2014 TIME of SERVICE: 11:11 AM Aortic stenosis 12/01/2014 Ascending aortic aneurysm 2014 Overview: S/p ascending repair documented as of this encounter (statuses as of 01/13/2023) [facility] History of Past illness Narrative* Problem Noted Date Resolved Date Malnutrition of moderate degree 12/24/2014 06/29/2021 Overview: History: 2nd to prolonged illness/hospitalization Assessment: nutrition evaluated and mod degree malnutrition Plan: -encourage oral intake at home, con't supplements at home if needed. Change in mental status 12/09/2014 12/20/19 Overview: History: 12/07/14 pt developed confusion at home, Called 911 transferred back to [facility]. Another brief episode of amnesia in the [...] - scheduled acetaminophen. 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 scenic artist Thrombocytopenia 12/02/2014 12/03/2014 Overview: 12/02/2014 Expected mild [...] of this encounter (statuses as of 05/04/2023) [facility] History of Past illness Narrative* Problem Noted Date Diagnosed Date Resolved Date Malnutrition of moderate degree 12/24/2014 06/29/2021 Overview: History: 2nd to prolonged illness/hospitalization Assessment: nutrition evaluated and mod degree malnutrition Plan: -encourage oral intake at home, con't supplements at home if needed. Change in mental status 12/09/201412/01 Overview: History: 12/07/14 pt developed confusion at home, Called 911 transferred back to [facility]. Another brief episode of amnesia in the [...] - scheduled acetaminophen. 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 scenic artist Thrombocytopenia 12/02/2014 12/03/2014 Overview: 12/02/2014 Expected mild [...] Cardiac Surgical prep: N/A SIGNATURE: Shelly Son BOOTH SUPERVISOR CHECKED BY: rashel DATE of SERVICE: 11/19/2014 TIME of SERVICE: 11:11 AM Aortic stenosis 12/01/2014 Ascending aortic aneurysm Overview: S/p ascending repair documented as of this encounter (statuses as of 05/30/2023) [facility]ments Appointment Date:12/11/2023 09:00:00 AM Scheduled Provider:India SOLIS MD Location:[facility] Appointment Type:URO Office Visit [facility] evaluation note* Diagnosis S/P AVR (aortic valve replacement) and aortoplasty Heart valve replaced by other means THOMASON (dyspnea on exertion) Other dyspnea and respiratory abnormality Primary hypertension Unspecified essential hypertension [facility] Diagnosis S/P AVR (aortic valve replacement) and aortoplasty Heart valve replaced by other means SVT (supraventricular tachycardia) (HCC) Other specified cardiac dysrhythmias Essential hypertension Unspecified essential hypertension Venous (peripheral) insufficiency Unspecified venous (peripheral) insufficiency [facility] noteNo assessment information availableUniversity [facility]als St[facility] Work Phone: Evaluation note* Diagnosis S/P AVR (aortic valve replacement) and aortoplasty Heart valve replaced by other means SVT (supraventricular tachycardia) (HCC) Other specified cardiac dysrhythmias Essential hypertension Unspecified essential hypertension Venous (peripheral) insufficiency Unspecified venous (peripheral) insufficiency [facility]* Diagnosis S/P AVR (aortic valve replacement) and aortoplasty- Primary Heart valve replaced by other means SVT (supraventricular tachycardia) (HCC) Other specified cardiac dysrhythmias APC (atrial premature contractions) Supraventricular premature beats Primary hypertension Unspecified essential hypertension Patchy loss of hair Alopecia, unspecified Mixed hyperlipidemia Typical atrial flutter (HCC) Atrial flutter [facility]* Diagnosis Primary hypertension- Primary Unspecified essential hypertension [facility]* Diagnosis Impingement syndrome of left shoulder- Primary Other affections of shoulder region, not elsewhere classified [facility]* Diagnosis S/P AVR (aortic valve replacement) 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- Primary Heart valve replaced by other means APC (atrial premature contractions) Supraventricular premature beats SVT (supraventricular tachycardia) (HCC) Other specified cardiac dysrhythmias Primary hypertension Unspecified essential hypertension Venous (peripheral) insufficiency Unspecified venous (peripheral) insufficiency [facility]* Diagnosis S/P AVR (aortic valve replacement) 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 Heart valve replaced by other means APC (atrial premature contractions) Supraventricular premature beats SVT (supraventricular tachycardia) Other specified cardiac dysrhythmias [facility]* Diagnosis Pain Generalized pain [facility]* Diagnosis Hyperlipidemia, unspecified documented [facility]* Diagnosis Essential hypertension- Primary Unspecified essential hypertension Hyperlipidemia, unspecified hyperlipidemia type Sciatica of left side 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-induced thrombocytopenia) ([facility]) 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 Diagnosis Encounter for subsequent annual wellness visit (AWV) in Medicare patient- Primary Colon cancer screening Special screening for malignant neoplasms, colon Encounter for screening mammogram for malignant neoplasm of breast Postmenopausal status Asymptomatic postmenopausal status (age-related) (natural) Screening for osteoporosis Special screening for osteoporosis [facility] Diagnosis S/P AVR (aortic valve replacement) and aortoplasty- Primary Heart valve replaced by other means SVT (supraventricular tachycardia) (HCC) Other specified cardiac dysrhythmias 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, specified as nonrheumatic PVC (premature ventricular contraction) Other premature beats Acute on chronic diastolic heart failure (HCC) Acute on chronic diastolic heart failure [facility]* Diagnosis S/P AVR (aortic valve replacement) and aortoplasty- Primary Heart valve replaced by other means SVT (supraventricular tachycardia) (HCC) Other specified cardiac dysrhythmias Chronic diastolic heart failure (HCC) Chronic diastolic heart failure PVC (premature ventricular contraction) Other premature beats 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, specified as nonrheumatic documented in this encounter [facility] course Narrative No data available for this section [facility] InstructionsNot on filedocumented in this encounter [facility] SystemInstructionsNot on filedocumented in this encounter [facility]Progress note No data available for this section [facility] reason for referral (narrative)* Outpatient Procedure (Routine) - Authorized Specialty Diagnoses / Procedures Referred By Contac t Referred To Contact [facility] Diagnoses S/P AVR (aortic valve replacement) and aortoplasty SVT (supraventricular tachycardia) (HCC) Procedures ECHO ECHO TTHRC R-T 2D W/WOM-MODE COMPL SPEC&COLR D Andres Boyd MD [address] [place] [address] [address] [address] [place] [address] Referral ID Status Reason Start Date Expiration Date Visits Requested Visits Authorized [id number] Authorized Auto-Generat ed Referral 12/28/2023 06/26/2024 1 1 * Outpatient Procedure (Routine) - Authorized Specialty Diagnoses / Procedures Referred By Contac t Referred To Contact [facility] [place] Diagnoses S/P AVR (aortic valve replacement) and aortoplasty APC (atrial premature contractions) Procedures ECG COMPLETE ECG ROUTINE ECG W/LEAST 12 LDS W/I&R Andres Boyd MD [address] [place] [address] [facility] [address] [address] Referral ID Status Reason Start Date Expiration Date Visits Requested Visits Authorized [id number] Authorized Auto-Generat ed Referral 06/27/2023 06/26/2024 1 1 [facility] for referral (narrative)* Diagnostic Procedure Only (Routine) - Closed Specialty Diagnoses / Procedures Referred By Contac t Referred To Contact XR IMAGING Diagnoses Pain Procedures XR SHOULDER GENERAL 3V OR MORE AP/TRUE AP/OTHER LEFT RADEX SHOULDER COMPLETE MINIMUM 2 VIEWS Indigo Saldaña, [address] [place] [address] [place] [address] Referral ID Status Reason Start Date Expiration Date V isits Requested Visits Authorized [id number] Closed Auto-Generate d Referral 04/07/2023 05/06/2024 1 1 [facility] for referral (narrative)* Outpatient Procedure (Routine) - Pending Review Specialty Diagnoses / Procedures Referred By Contac t Referred To Contact [facility] [place] Diagnoses S/P AVR (aortic valve replacement) and aortoplasty SVT (supraventricular tachycardia) (HCC) Procedures ECG COMPLETE ECG ROUTINE ECG W/LEAST 12 LDS W/I&R Andres Boyd MD [address] [place] [address] [facility] [address] [address] Referral ID Status Reason Start Date Expiration Date Visits Requested Visits Authorized [id number] Pending Review Auto-Generat ed Referral 12/27/2023 12/26/2024 1 [facility] Procedure (Routine) - Authorized Specialty Diagnoses / Procedures Referred By Lyn cui Referred To Contact [facility] [place] Diagnoses S/P AVR (aortic valve replacement) and aortoplasty SVT (supraventricular tachycardia) (HCC) Chronic diastolic heart failure (HCC) PVC (premature ventricular contraction) Procedures ECHO ECHO TTHRC R-T 2D W/WOM-MODE COMPL SPEC&COLR D Andres Boyd MD [address] [place] [address] [facility] [address] [address] Referral ID Status Reason Start Date Expiration Date Visits Requested Visits Authorized [id number] Authorized Auto-Generat ed Referral 08/30/2024 02/27/2025 1 1 [facility] Summary Purpose Family History No Family History Records FoundNo Family History Records FoundNo Family History Records Found No data available for this section No Family History Records FoundNo Family History Records FoundNo Family History Records FoundNo Family History Records FoundNo Family History Records Found Advance Directives No Advanced Directives Records FoundDocuments on File Type Date Recorded 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 Advance Directive(s) Advance Directive(s) 02/05/2021 11:39 AM Advance Directive(s) 01/08/2021 8:34 AM Advance Directive Response Recorded Date/ Time Advance Directives No September 06, 2018 2:42pm Chief Complaint and Reason for Visit Chief Complaint Screening Reason for Referral Specialty Diagnoses / Procedures Referred By Contac t Referred To Contact [facility] Diagnoses Impingement syndrome of left shoulder Procedures CONSULT TO PHYSICAL THERAPY PHYSICAL THERAPY EVALUATION HIGH COMPLEX 45 MINS Indigo Saldaña, DO [address] [place] [address] [facility] [place] [address] [place] [address] Referral ID Status Reason Start Date Expiration Date Visits Requested Visits Authorized [id number] Authorized PCP Requested Referral Auto-Generate d Referral 05/30/2023 05/29/2024 99 99 Specialty Diagnoses / Procedures Referred By Contac t Referred To Contact Dermatology Diagnoses Patchy loss of hair Procedures CONSULT TO DERMATOLOGY OFFICE/OUTPATIENT NEW HIGH MDM 60-74 MINUTES Nitza Mae APRN.MANAGER ED [address] [place] [address] Referral ID Status Reason Start Date Expiration Date Visits Requested Visits Authorized [id number] Authorized PCP Requested Referral 12/27/2022 12/27/2023 1 [...] section and content) DATE CREATED AUTHOR 07/22/2020 [facility] DATE CREATED AUTHOR AUTHOR'S ORGANIZ ATION 11/09/2021 [facility] DATE CREATED AUTHOR AUTHOR'S ORGANIZ ATION 12/07/2022 [facility] DATE CREATED AUTHOR AUTHOR'S ORGANIZ ATION 12/03/2023 [facility] DATE CREATED AUTHOR AUTHOR'S ORGANIZ ATION 12/28/2023 [facility] DATE CREATED AUTHOR AUTHOR'S ORGANIZ ATION 03/01/2024 [facility] DATE CREATED AUTHOR AUTHOR'S ORGANIZ ATION 06/03/2024 [facility] DATE CREATED AUTHOR AUTHOR'S ORGANIZ ATION 06/17/2024 [facility] [facility] Source Comments (unrecognize d section and content) In the event this informatio n is protected by the Federal Confidentiality of Alcohol and Drug Abuse Patient Records regulations: The Federal rules restrict any use of the information to criminally investigate or prosecute any alcohol or drug abuse patient.[facility] the event this information is protected by the Federal Confidentiality of Alcohol and Drug Abuse Patient Records regulations: The Federal rules restrict any use of the information to criminally investigate or prosecute any alcohol or drug abuse patient.[facility] Hospital[facility] the event this information is protected by the Federal Confidentiality of Alcohol and Drug Abuse Patient Records regulations: The Federal rules restrict any use of the information to criminally investigate or prosecute any alcohol or drug abuse patient.[facility] the event this information is protected by the Federal Confidentiality of Alcohol and Drug Abuse Patient Records regulations: The Federal rules restrict any use of the information to criminally investigate or prosecute any alcohol or drug abuse patient.[facility] [place] [facility] the event this information is protected by the Federal Confidentiality of Alcohol and Drug Abuse Patient Records regulations: The Federal rules restrict any use of the information to criminally investigate or prosecute any alcohol or drug abuse patient.[facility] the event this information is protected by the Federal Confidentiality of Alcohol and Drug Abuse Patient Records regulations: The Federal rules restrict any use of the information to criminally investigate or prosecute any alcohol or drug abuse patient.[facility] [place] [facility] the event this information is protected by the Federal Confidentiality of Alcohol and Drug Abuse Patient Records regulations: The Federal rules restrict any use of the information to criminally investigate or prosecute any alcohol or drug abuse patient.[facility] [place] [facility] the event this information is protected by the Federal Confidentiality of Alcohol and Drug Abuse Patient Records regulations: The Federal rules restrict any use of the information to criminally investigate or prosecute any alcohol or drug abuse patient.[facility] [place] [facility]In the event this information is protected by the Federal Confidentiality of Alcohol and Drug Abuse Patient Records regulations: The Federal rules restrict any use of the information to criminally investigate or prosecute any alcohol or drug abuse patient.[facility] [place] [facility] the event this information is protected by the Federal Confidentiality of Alcohol and Drug Abuse Patient Records regulations: The Federal rules restrict any use of the information to criminally investigate or prosecute any alcohol or drug abuse patient.[facility] [place] [facility]In the event this information is protected by the Federal Confidentiality of Alcohol and Drug Abuse Patient Records regulations: The Federal rules restrict any use of the information to criminally investigate or prosecute any alcohol or drug abuse patient.[facility] [place] [facility] HospitalIn the event this information is protected by the Federal Confidentiality of Alcohol and Drug Abuse Patient Records regulations: The Federal rules restrict any use of the information to criminally investigate or prosecute any alcohol or drug abuse patient.[facility] [place] [facility] HospitalIn the event this information is protected by the Federal Confidentiality of Alcohol and Drug Abuse Patient Records regulations: The Federal rules restrict any use of the information to criminally investigate or prosecute any alcohol or drug abuse patient.[facility] Reason for Visit (unrecogniz ed section [...] SHOULDER COMPLETE MINIMUM 2 VIEWS Indigo Saldaña, DO [address] [place] [address] [place] [address] Referral ID Status Reason Start Date Expiration Date V isits Requested Visits Authorized [id number] Closed Auto-Generate d Referral 04/07/2023 05/06/2024 1 1 Reason Onset Date Comments Med Refill 11/06/2023 Reason Comments Hyperlipidemia Hypertension Reason Comments medicare annual wellness Reason Comments Follow Up Reason Comments Medication Problem Reason Comments medication questions / cost issue Care Teams (unrecognized sec tion and content) Team Status: Active Member Role Status Dates Rachael Canela DO Primary Care Provider Active Team Status: Inactive Member Role Status Dates Rachael Canela DO Primary Care Provider Active Sta rt: December 20, 2023 End: December 20, 2023 Referral Self Attending Provider Active Start: F jonathan 2023 End: December 20, 2023 Carlos King DO Referring Provider Active Start: December 20, 2023 End: December 20, 2023 Ranch Rider Relationship Specialty Start Date End Date Rachael Canelaard PCP - General Internal Medicine 08/04/15 Amparo Nguyen LSW Assignment Editor 12/12/14 Ranch Rider Relationship Specialty Start Date End Date Rachael Canelaard PCP - General Internal Medicine 08/04/15 Amparo Nguyen [facility] Assignment Editor 12/12/14 Team Status: Inactive Member Role Status Rachael Canela DO Primary Care Provider, Other Provider Active Referral Self Attending Provider Active Carlos King DO Referring Provider Active Ranch Rider Relationship Specialty Start Date End Date Rachael Canela PCP - General Internal Medicine 08/04/15 Amparo Nguyen LSW Assignment Editor 12/12/14 Ranch Rider Relationship Specialty Start Date End Date Rachael Canelaard PCP - General Internal Medicine 08/04/15 Amparo Nguyen LSW Assignment Editor 12/12/14 Ranch Rider Relationship Specialty Start Date End Date Rachael Canelaard PCP - General Internal Medicine 08/04/15 Amparo Nguyen LSW Assignment Editor 12/12/14 Ranch Rider Relationship Specialty Start Date End Date Rachael Canelaard PCP - General Internal Medicine 08/04/15 Nguyen, Amparo, [facility] Assignment Editor 12/12/14 Ranch Rider Relationship Specialty Start Date End Date Rola Rachael Miguelard PCP - General Internal Medicine 08/04/15 Nguyen, Amparo, [facility] Assignment Editor 12/12/14 Ranch Rider Relationship Specialty Start Date End Date Rachael Canela PCP - General Internal Medicine 08/04/15 Nguyen, Amparo, [facility] Assignment Editor 12/12/14 Ranch Rider Relationship Specialty Start Date End Date Rachael Canela PCP - General Internal Medicine 08/04/15 Nguyen Amparo, [facility] Assignment Editor 12/12/14 Ranch Rider Relationship Specialty Start Date End Date Rachael Canela DO [address] [place] [address] PCP - General Internal Medicine 07/17/17 Ranch Rider Relationship Specialty Start Date End Date Rachael Canela DO [address] [place] [address] PCP - General Internal Medicine 07/17/17 Ranch Rider Relationship Specialty Start Date End Date Rachael Canela DO [address] [place] [address] PCP - General Internal Medicine 07/17/17 Ranch Rider Relationship Specialty Start Date End Date Rachael Canela PCP - General Internal Medicine 08/04/15 Amparo Nguyen LSW Assignment Editor 12/12/14 Goals (unrecognized section and content) Goals may be documented in a n alternate section No data available for this sectionNot on filedocumented as of this encounterNot on filedocumented as of this encounterNot on filedocumented as of this encounter No data available for this sectionGoals may be documented in an alternate section FOR RECORDS PERTAINING TO PATIENTS WHO ARE [...] BE BASED ON THE PRIMARY CLINICAL RECORDS. [employer] [facility]. provides no warranty or guarantee of the accuracy or completeness of information in this document.
== END 2024-06-17 09:10 | disposition home or self-care (01) ==
LOC: RAD 09:12
PROVIDERS: PCP Internal Medicine; Visit Provider Nurse Practitioner Family
DX: N20.0 Calculus of kidney (principal); Z87.442 Personal history of urinary calculi
CPT/HCPCS: 74018

== ENCOUNTER 2024-06-27 08:44 | Outpatient (OUT) | payer MEDICARE, SELFPAY ==
--- NOTE | 2024-06-27 08:46 | US_ITS ---
The [address] [address] Patient Name: FERNANDO RAMOS MRN: [id number] date: 1950 Sex: F Assigned Patient Location: Current Patient Location: Accession/Order Number: [id number] Exam Date: 06/27/2024 09:00 Report Date: 06/28/2024 13:10 At the request of: MARCO BARRAZA Procedure: US renal BI EXAM: Renal ultrasound: HISTORY: Kidney stones. COMPARISON STUDY: Plain film examination dated 06/17/2024. FINDINGS: The right kidney measures 10.2 cm and the left kidney measures 11.7 cm. Both kidneys show a normal cortex to medullary ratio. There are multiple bilateral parenchymal calcifications but there is no hydronephrosis on either side. The urinary bladder is grossly normal in appearance. The prevoid volume is 137 cc. The post void volume is 3 cc. Both ureteral jets are visualized. US/US renal BI IMPRESSION: Bilateral nephrolithiasis without evidence of obstruction on either side. Electronically authenticated by: JOSSY DYER Date: 06/28/2024 13:10
== END 2024-06-27 08:45 | disposition home or self-care (01) ==
LOC: US 08:45
PROVIDERS: PCP Internal Medicine; Visit Provider Nurse Practitioner Family
DX: N20.0 Calculus of kidney (principal)
CPT/HCPCS: 76775

== ENCOUNTER 2024-08-20 08:45 | Outpatient (OUT) | payer MEDICARE, SELFPAY ==
--- NOTE | 2024-08-20 08:52 | CT_ITS ---
[address] [address] Patient Name: FERNANDO RAMOS MRN: [id number] date: 1950 Sex: F Assigned Patient Location: CT Current Patient Location: Accession/Order Number: [id number] Exam Date: 08/20/2024 08:55 Report Date: 08/21/2024 06:50 At the request of: MARCO BARRAZA Procedure: CT abdomen pelvis wo con EXAMINATION: CT abdomen pelvis wo con HISTORY: Kidney Stone COMPARISON: Ultrasound renal bilateral 06/27/2024 TECHNIQUE: Axial, Coronal, and Sagittal images were obtained without and/or with IV contrast as indicated by examination type. Dose reduction techniques were achieved by using automated exposure control and/or adjustment of mA and/or kV according to patient size and/or use of iterative reconstruction technique. FINDINGS: LUNG BASES: No visible pulmonary or pleural disease. LIVER: No enlargement, atrophy, suspicious density, or significant focal lesion. BILIARY: Collection of tiny granular size stones within noninflamed gallbladder. PANCREAS: No lesion, fluid collection, or abnormal duct dilatation. SPLEEN: No enlargement or focal lesion. ADRENALS: No mass or enlargement. KIDNEYS: The right kidney contains 2 nonobstructing 1 mm stones and a 5 mm fatty lesion, likely a small angiomyolipoma. Left kidney contains several nonobstructing stones, largest is 6 mm, and a few small parapelvic cysts. BOWEL/MESENTERY: No visible mass, obstruction, or bowel wall thickening. AORTA/VASCULAR: No aneurysm or dissection. RETROPERITONEUM: No mass or adenopathy. LYMPH NODES: No adenopathy. URINARY BLADDER: No visible focal wall thickening, lesion, or calculus. PELVIC ORGANS: No visible mass. Pelvic organs appropriate for patient age. ABDOMINAL WALL: No mass or hernia. BONES: 8 mm anterior listhesis of L4 on 5 and moderate disc space narrowing. No fracture of the pars interarticularis. OTHER: Negative. CT/CT abdomen pelvis wo con IMPRESSION: 1. Bilateral nonobstructing nephrolithiasis. 2. Cholelithiasis. 3. Grade 1, bordering on grade 2 anterior listhesis of L4 on 5 without pars interarticularis defects. Electronically authenticated by: MEERA HARTMANN Date: 08/21/2024 06:50
== END 2024-08-20 08:46 | disposition home or self-care (01) ==
LOC: CT 08:45
PROVIDERS: PCP Internal Medicine; Visit Provider Nurse Practitioner Family
DX: N20.0 Calculus of kidney (principal); K80.20 Calculus of gallbladder without cholecystitis without obstruction
CPT/HCPCS: 74176

== ENCOUNTER 2025-05-14 07:51 | Outpatient (OUT) | payer MEDICARE, SELFPAY ==
--- OUTSIDE RECORDS SUMMARY | 2025-05-14 07:53 | XMS_ITS | Encounter Summary ---
Author Organization [facility] Address [address] [place] [address] Care Team Providers Care Admittance Attendant Name Role Phone Unavailable Primary Care Provider Unavailabl e Encounter Details Date Type Department Care Team (Late st Contact Info) Description 03/17/2025 External Result Encounter [facility] External Department Unsolicited Provider, Generic External Data Social History Tobacco Use Types Packs/Day Years Used Date Smoking Tobacco: Never Assessed Comments Unknown Sex and Gender Information Value Date Recorded Sex Assigned at Not on file Legal Sex Female 7:19 PM EDT Gender Identity Not on file Sexual Orientation Not on file documented as of this encounter Plan of Treatment Not on file documented as of this encounter Procedures Procedure Name Priority Date/Time Associated Diagnosis Comments BI MAMMOGRAM SCREENING TOMOSYNTHESIS BILATERAL 03/17/2025 9:45 AM EDT documented in this encounter Results * Bilateral screening mammogram with tomosynthesis (03/17/2025 9:45 AM EDT) Anatomical Region Laterality Modality Breast Bilateral Mammography 03/17/2025 9:45 AM EDT Impressions 03/17/2025 9:50 AM EDT NO MAMMOGRAPHIC EVIDENCE OF MALIGNANCY. ROUTINE FOLLOW-UP IS RECOMMENDED IN ONE YEAR. RESULT CODE: 1 Negative DENSITY CODE: 2 (approximately 25-50% glandular) There are scattered areas of fibroglandular density. FOLLOW UP: 1YR The false-negative rate of mammography is approximately 10-percent. Management of a palpable abnormality must be based on clinical grounds. Patient was entered into a reminder system with a target due date for the next mammogram. Impression dictated by: Jose Holcomb M.D. 03/17/2025 9:47 AM Dictation Location: [facility] Dictated By: Jose Holcomb MD 03/17/25 0945 Signed By: <Electronically signed by Jose Holcomb MD in [place]> 03/17/25 0947 Narrative 03/17/2025 9:50 AM EDT [facility] [address] [place] [address] [address] [place] [address] Mammography Report Signed Patient: Lesvia Fritz I MR#: [id number] : 1950 Acct:[id number] Age/Sex: 74 / F Adm Date: 03/17/25 Loc: [place] Room: Type: REG CLI Attending Dr: Referral Self Ordering Provider: SELF,REFERRAL Date of Service: 03/17/25 Procedure(s): MM screening mammo BI w/CAD Accession Number(s): ([id number]) MM/MM screening mammo BI w/CAD: SCREENING Copies to: Pepito Guajardo, SELF,REFERRAL Carlos King DO CLINICAL DATA: Screening for malignancy. SCREENING MAMMOGRAM - FULL FIELD DIGITAL WITH TOMOSYNTHESIS AND CAD COMPARISON:Dating back to 2018 Tomosynthesis craniocaudal and mediolateral oblique views of both breasts were obtained using low- dose digital technique. This examination was reviewed with the aid of CAD. The breast tissue is composed of scattered fibroglandular densities. There are no dominant masses, typically malignant calcifications or architectural distortion. There has been no significant interval change. MM/MM screening mammo BI w/CAD Procedure Note Radiology, Radiologist, - 03/17/2025 [facility] [address] [place] [address] [address] [place] [address] Mammography Report Signed Patient: Lesvia Fritz IMR#: [id number] : 1950Acct:[id number] Age/Sex: 74 / FAdm Date: 03/17/25 Loc: [place] Room:Type: REG CLI Attending Dr: Referral Self Ordering Provider: SELF,REFERRAL Date of Service: 03/17/25 Procedure(s): MM screening mammo BI w/CAD Accession Number(s): ([id number]) MM/MM screening mammo BI w/CAD:SCREENING Copies to: Pepito Guajardo,DO SELF,REFERRAL Carlos KingDO CLINICAL DATA: Screening for malignancy. SCREENING MAMMOGRAM - FULL FIELD DIGITAL WITH TOMOSYNTHESIS AND CAD COMPARISON:Dating back to 2018 Tomosynthesis craniocaudal and mediolateral oblique views of both breastswere obtained using low- dose digital technique. This examination was reviewed with the aid ofCAD. The breast tissue is composed of scattered fibroglandular densities.There are no dominant masses, typically malignant calcifications or architectural distortion. There hasbeen no significant interval change. MM/MM screening mammo BI w/CAD IMPRESSION: NO MAMMOGRAPHIC EVIDENCE OF MALIGNANCY. ROUTINE FOLLOW-UP IS RECOMMENDED IN ONE YEAR. RESULT CODE: 1 Negative DENSITY CODE: 2 (approximately 25-50% glandular) There are scattered areasof fibroglandular density. FOLLOW UP: 1YR The false-negative rate of mammography is approximately 10-percent. Management of a palpable abnormality must be based on clinical grounds. Patient was entered into a reminder system with a target due date for thenext mammogram. Impression dictated by: Jose Holcomb M.D. 03/17/2025 9:47 AM Dictation Location: [facility] Dictated By: Jose Holcomb MD 03/17/25 0945 Signed By: <Electronically signed by Jose Holcomb MD in [place]> 03/17/25 0956 us Generic External Data Provider IMG BI PROCEDURES Final Result documented in this encounter Visit Diagnoses Not on filedocumented in this encounter
--- OUTSIDE RECORDS SUMMARY | 2025-05-14 07:53 | XMS_ITS | Clinical Summary ---
Author Organization [facility] Address [address] [place], [place] [id number] Care Team Providers Care Technical Writing Lead/Mgr Name Role Phone Amparo Nguyen RAPID TRANSIT OPERATOR Unavailable Unavailab Pepito Dai Primary Care Provider Allergies Active Allergy Reactions Criticality Noted Date Comments Heparin Other: See Comments High 12/09/2014 HIT Sulfa (Sulfonamide Antibiotics) Rash 10/30 Medications acetaminophen (TYLENOL) 325 mg tablet Take 2 tablets by mouth every 6 hours as needed for Pain (DO NOT EXCEED 4,000 MG IN 24 HOUR PERIOD). 5 Active Amoxicillin 500 mg tablet Take 4 tablets by mouth 30-60 minutes before dental procedure 4 tablet 11 6 Active levothyroxine (SYNTHROID) 75 mcg tablet Take 1 tablet by mouth daily before breakfast. 90 tablet 3 8 Active cholecalciferol, Vitamin D3, (VITAMIN D3) 1,250 mcg (50,000 unit) cap capsule Take 50,000 Units by mouth one time a week. Active atorvastatin (LIPITOR) 10 mg tablet Take 10 mg by mouth once daily. Active Magnesium 250 mg tab Take 250 mg by mouth once daily. Active LATANOPROST OPHTHALMIC Use 1 Drop in eyes once daily. Active furosemide (LASIX) 20 mg tabletIndications: S/P AVR (aortic valve replacement) and aortoplasty,SVT (supraventricular tachycardia) ([facility]) Take 1 tablet by mouth as directed. TAKE 20 MG DAILY NEEDED FOR WEIGHT INCREASE OF >5 LBS OVER 3 DAYS OR WORSENING LEG SWELLING. 30 tablet 3 05/01/202 4 Active metoprolol succinate ER (TOPROL XL) 50 mg 24 hr tabletIndications: S/P AVR (aortic valve replacement) and aortoplasty,APC (atrial premature contractions),SVT (supraventricular tachycardia) (HCC) take 1 tablet by mouth twice daily 180 tablet 3 4 Active spironolactone-hct z 25/ (ALDACTAZIDE) 25-25 mg per tabletIndications: Nonrheumatic tricuspid valve regurgitation TAKE 1/2 (ONE-HALF) OF A TABLET BY MOUTH DAILY 45 tablet 3 5 Active Active Problems Patient Care Coordination No te Formatting of this note migh t be different from the original. Indication for hospital admission: discharged from [facility] on 12/06 after having aortic valve replacement and repair of ascending aorta on 12/01/14. She was staying with family during the recovery period and overall was doing well. READMIT: [place] [facility] [place] after presenting with acute onset confusion. [...] controlled Dispo: DC today. . Lives in [place], [place]. Coumadin to be managed by PCP next INR check 01/08. f/u with PCP and Dr. Roach VM/Cards. 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 Plan: con't coumadin f/u with Dr. Roach No f/u ultrasound needed per HIT (+) 12/09/2014 Overview (01/06/2015): History: POHS as below 15 after prior [...] scheduled. Dr. Barron to manage coumadin locally. Hypothyroidism 12/04/2014 Overview (01/06/2015): History: TSH normal on synthroid pre-op. Assessment: stable. Plan: con't synthroid. SUMMARY 12/02/2014 Overview (01/06/2015): Indication for hospital admission: discharged from [facility] on 12/06 after having aortic valve replacement and repair of ascending aorta on 12/01/14. She was staying with family during the recovery period and overall was doing well. READMIT: [place] [facility] [place] after presenting with acute onset confusion. [...] controlled Dispo: DC today. . Lives in [place], [place]. Coumadin to be managed by PCP next INR check 01/08. f/u with PCP and Dr. Roach VM/Cards. Hyperlipidemia 12/02/2014 Overview (01/06/2015): History: Pre-op LDL 66 on Zocor. Assessment: controlled. Plan: con't Zocor Resolved Problems Problem Noted Date Diagnosed Date Resolved Date Intercostal pain 12/24/2020 06/27/2023 Malnutrition of moderate degree 12/24/2014 06/29/2021 Overview (01/06/2015): History: 2nd to prolonged illness/hospitalization Assessment: nutrition evaluated and mod degree malnutrition Plan: -encourage oral intake at home, con't supplements at home if needed. Atrial flutter 12/12/2014 06/27/2023 Overview (01/06/2015): History: post op Aflutter Assessment: maintaining sinus. Plan: continue toprol XL. coumadin f/u with [facility] Dr. Roach Change in mental status 12/09/201412/01 Overview (12/19/2014): History: 12/07/14 pt developed confusion at home, Called 911 transferred back to [facility]. Another brief episode of amnesia in the [...] neurologic status closely Ischemic stroke diagnosed du [facility] current admission 12/08/2014 12/09/2014 Stroke (cerebrum) 12/07/2014 12/09/2014 Nausea 12/04/2014 12/06/2014 Overview (12/05/2014): resolved con't reglan for today then DC Stress hyperglycemia 12/03/2014 015 Overview (12/04/2014): History: no hx of DM Assessment: stress hyperglycemia 2nd to OHS, no coverage x 24 hours Plan: -DC accuchecks and SSI. Acute postoperative pain 12/02/201401/2015 Overview (12/02/2014): 12/02/2014 Analgesia plan - scheduled acetaminophen. 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 bi specialist Thrombocytopenia 12/02/2014 12/03/2014 Overview (12/02/2014): 12/02/2014 Expected mild postop decrease in plt ct. No bleeding. Monitor Atelectasis/volume overload 12/02/2014 12/16/2014 Overview (12/06/2014): History: 2nd to OHS Assessment: CXR today, 12/03 with small bilateral pleural effusions & atelectasis. wt up from admission Plan: -encouraged to continue at home ez pep, coughing, deep breathing and ambulation. -DC on tapering dose of lasix Acute blood loss anemia 12/01/2014 0201/2015 Overview (12/02/2014): 12/02/2014 Hgb 8.4 on POD #1. NO bleeding. Hemodynamics adequate without s/s endorgan malperfusion. Monitor Pre-op testing 11/19/2014 12/02/2014 Overview (11/28/2014): Images from the original note were not [...] 11/17/201105/31 Aortic stenosis 12/01/2014 Ascending aortic aneurysm Overview (12/02/2014): S/p ascending repair Encounters Date Type Department Care Team Description 03/26/2025 Results Follow-Up Cardiology [address] [place] [address] Richard Mae APRN.CNP 03/25/2025 1:30 PM EDT Office Visit Cardiology [address] [place] [address] Richard Mae APRN.FLOORWORKER DISTRIBUTOR Nonrheumatic tricuspid valve regurgitation (Primary Dx); Abnormal bruising; SVT (supraventricular tachycardia) (HCC); Chronic diastolic heart failure (HCC); Mixed hyperlipidemia; S/P AVR (aortic valve replacement) 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; Premature atrial complexes; History of heparin-induced thrombocytopenia; Essential (primary) hypertension 03/25/2025 Travel from Last 3 Months Immunizations Immunization Administration Dates Next Due influenza (HD-IIV3) vaccine, age 65+ yr, high dose, trivalent, PF (FLUZONE HIGH-DOSE) 08/04/2014 pneumococcal polysaccharide (PPV23) vaccine, 23 valent (PNEUMOVAX 23) 11/03/2014 zoster (ZVL) vaccine, live (ZOSTAVAX) 10/06/2014 Family History Medical History Relation Comments Stomach Cancer Father deeased age 60 Cataract Mother PVD, amputee Mother age 63 Glaucoma Sister Hypothyroid Sister 2 Sisters Relation Status Comments Father Mother Sister Social History Tobacco Use Types Packs/Day Years Used Date Smoking Tobacco: Never Smokeless Tobacco: Never Tobacco Cessation:Counseling Given: Not Answered Alcohol Use Standard Drinks/Week Comments Yes 0 (1 standard drink = 0.6 oz pur e alcohol) social PHQ-2 Answer Date Recorded PHQ-2 score 0 12/17/2018 Area Deprivation Index Answer Date Remington rded National Score (1-100), lower number is lower ri sk 63 05/30/2023 State Score (1-10), lower number is lower risk 4 05/30/2023 Data from: https://www.neighborhoodatlas.medicine.[facility].edu/. Last address used for calculation [address] 05/30/2023 Comments No Sex and Gender Information Value Date Recorded Sex Assigned at Female 12/21/2020 3:00 PM EST Legal Sex Female 10:13 AM EST Gender Identity Female 12/21/2020 3:00 PM EST Sexual Orientation Straight 12/21/2020 3: 03 PM EST Occupation Industry Job Start Date Job End Date retired Not on file Not on file Not on file Last Filed Vital Signs Vital Sign Reading Time Taken Comments Blood Pressure 131/70 03/25/2025 1:24 PM EDT Pulse 76 03/25/2025 1:24 PM EDT Temperature 36.4 C (97.6 F) 02/05/2021 12:25 PM EDT Respiratory Rate 16 02/05/2021 1:17 PM EDT Oxygen Saturation 100% 02/05/2021 1:17 PM EDT Inhaled Oxygen Concentration - - Weight 58.8 kg (129 lb 10.1 oz) 03/25/2025 1:24 PM EDT Height 162.6 cm (5' 4 ) 12/24/2020 10:2 9 AM EST Body Mass Index 22.25 12/24/2020 10:29 AM EST Plan of Treatment Upcoming Encounters Date Type Department Care Team (Latest Contact Info) Description 09/17/2025 8:50 AM EST Office Visit Cardiology [address] [place] [address] Lyudmila, Asbestos Textile Supervisor [facility] [address] [place] [address] Nonrheumatic tricuspid valve regurgitation [I36.1] 09/17/2025 10:00 AM EST Office Visit Cardiology [address] [place], [place] [id number] Andres Stuart MD [address] [place] [address] 6 month follow up Health Maintenance Due Date Last Done Comments Annual PCP Team Chronic Dise ase Visit 1968 Anxiety Screening 1968 Depression Screening 1968 Hepatitis C Screening 1968 CT Colonography 1995 Cologuard (FIT-DNA) 1995 Colonoscopy 1995 Colorectal Cancer Screening 1995 Fecal Occult Blood 1995 Sigmoidoscopy 1995 Medicare Annual Wellness Visit 09/29/2015 Pneumococcal Vaccine: 50+ (2 of 2 - PCV) 06/23/2017 06/23/2016, 11/03/2014, 07/30/2014 Shingrix Vaccine (3 of 3) 08/27/20192018, 04/29/2019, 10/06/2014 Advance Directive Discussion 10/30/2024 Covid-19 Vaccine (8 - 4-2 5 season) 2025 08/10/2024, 09/14/2023, 08/16/2022, Additional history exists Influenza Vaccine (#1) 2025 , 09/26/2023, 09/26/2023, Additional history exists Mammogram Screening 03/17/2026 03/17/2025, 03/17/2025, 12/20/2023, Additional history exists DTaP,Tdap,Td Vaccine (2 - Td or Tdap) 07/17/2027 07/17/2017 Diabetes Screening 03/25/2028 03/25/2025, 0 12/05/2024, 08/08/2024, Additional history exists Lipid Screening 12/05/2029 12/05/2024, 12/01, 06/29/2021, Additional history exists RSV Vaccine Completed 10/25/2023 Bone Density Screening Completed 12/21/2023 Medical Devices Implanted Type Area Development Chemist Device Identifier Shelf Expiration Date Model / Serial / Lot Graft Cv 30cm 30mm 2 Vlr Wvn - [id number] Implanted:Qty : 1 on 12/01/2014 at [facility] Graft N/A: Artery - Aorta MAQUET 10/29/2018 [id number] 30P0 / / [id number] [place] Cv 4x.5in Thk1.65mm Ptfe - [id number] Implanted:Qty : 1 on 12/01/2014 at [facility] Implant BARD PERIPHERAL VASCULAR 08/29/2019 [id number] / / [id number] Description:pledgets on sutu re [place] Cv 6x6in Thk1.65mm Ptfe - [id number] Implanted:Qty : 1 on 12/01/2014 at [facility] Implant BARD PERIPHERAL VASCULAR 08/29/2019 [id number] / / [id number] Valve Aort 23mm C-E Prm Bprth - [id number] Implanted:Qty : 1 on 12/01/2014 at [facility] Valve N/A: Heart [employer] JOVI 05/03/2018 [id number] / [id number] / Procedures Procedure Name Priority Date/Time Associated Diagnosis Comments MAGNESIUM BLD Routine 03/25/2025 2:07 PM EDT SVT (supraventricular tachycardia) (HCC) Premature atrial complexes BASIC METABOLIC PANEL Routine 03/25/2025 2:07 PM EDT SVT (supraventricular tachycardia) (HCC) Premature atrial complexes COMPLETE BLOOD COUNT Routine 03/25/2025 2:07 PM EDT Abnormal bruising ECG COMPLETE Routine 03/25/2025 1:54 PM EDT Premature atrial complexes LIPID-LIPO PANEL 1 Routine 12/27/2022 9: 40 AM EST Mixed hyperlipidemia from Last 3 Months or Most Recently Relevant to Health Maintenance Results * MAGNESIUM (03/25/2025 2:07 PM EDT) Pathologist [facility] Magnesium 2.1 1.7 - 2.3 mg/dL 03/25/2025 11:15 PM EDT [facility] Blood BLOOD SPECIMEN / Unknown Venipuncture / Unknown 03/25/2025 2:07 PM EDT 03/25/2025 2:08 PM EDT us Richard Mae DIRECTOR OF CONSUMER MARKETING.FLOORWORKER DISTRIBUTOR LABORATORY Final Res ult [facility] [address] * (ABNORMAL) COMPLETE BLOOD COUNT (03/25/2025 2:07 PM EDT) Pathologist [facility] WBC 7.27 3.70 - 11.00 k/uL 03/25/2025 6:40 PM EDT [facility] RBC 4.84 3.90 - 5.20 m/uL 03/25/2025 6:40 PM EDT [facility] Hemoglobin 15.7(H) 11.5 - 15.5 g/dL 03/25/2025 6:40 PM EDT [facility] Hematocrit 47.8(H) 36.0 - 46.0 % 03/25/2025 6:40 PM EDT [facility] MCV 98.8 80.0 - 100.0 fL 03/25/2025 6:40 PM EDT [facility] MCH 32.4 26.0 - 34.0 pg 03/25/2025 6:40 PM EDT [facility] MCHC 32.8 30.5 - 36.0 g/dL 03/25/2025 6:40 PM EDT [facility] RDW-CV 11.9 11.5 - 15.0 % 03/25/2025 6:40 PM EDT [facility] Platelet Count 176 150 - 400 k/uL 03/25/2025 6:40 PM EDT [facility] MPV 11.4 9.0 - 12.7 fL 03/25/2025 6:40 PM EDT [facility] Absolute nRBC <0.01 <0.01 k/uL 03/25/2025 6:40 PM EDT [facility] Blood BLOOD SPECIMEN / Unknown Venipuncture / Unknown 03/25/2025 2:07 PM EDT 03/25/2025 2:08 PM EDT us Richard Mae DIRECTOR OF CONSUMER MARKETING.FLOORWORKER DISTRIBUTOR LABORATORY Final Res ult [facility] [address] [place] [address], * BASIC METABOLIC PANEL (03/25/2025 2:07 PM EDT) [facility] Glucose 82 74 - 99 mg/dL 03/25/2025 11:15 PM EDT [facility] Comment: The [place] Diabetes Association (ADA) provides guidance for cutoff [...] Standards of Medical Care in Diabetes 2016, [place] Diabetes Association. Diabetes Care. 2016.39(Suppl 1). BUN 19 7 - 21 mg/dL 03/25/2025 11:15 PM EDT [facility] Creatinine 0.83 0.58 - 0.96 mg/dL 03/25/2025 11:15 PM EDT [facility] Sodium 141 136 - 144 mmol/L 03/25/2025 11:15 PM EDT [facility] Potassium 4.9 3.7 - 5.1 mmol/L 03/25/2025 11:15 PM EDT [facility] Chloride 102 98 - 107 mmol/L 03/25/2025 11:15 PM EDT [facility] CO2 28 22 - 30 mmol/L 03/25/2025 11:15 PM EDT [facility] Anion Gap 11 8 - 15 mmol/L 03/25/2025 11:15 PM EDT [facility] Calcium, Total 10.1 8.5 - 10.2 mg/dL 03/25/2025 11:15 PM EDT [facility] Estimated Glomerular Filtration Rate 74 >=60 mL/min/1.7 3m 03/25/2025 11:15 PM EDT [facility] Comment:Estimated Glomerular Filtration Rate (eGFR) is calculated using the 2020 CKD-EPI creatinine equation. This equation utilizes serum creatinine, sex, and age as parameters. The creatinine assay has traceable calibration to isotope dilution- mass spectrometry. Refer to KDIGO guidelines for clinical interpretation. In patients with unstable renal function, e.g. those with acute kidney injury, the eGFR may not accurately reflect actual GFR. Blood BLOOD SPECIMEN / Unknown Venipuncture / Unknown 03/25/2025 2:07 PM EDT 03/25/2025 2:08 PM EDT us Richard Mae DIRECTOR OF CONSUMER MARKETING.FLOORWORKER DISTRIBUTOR LABORATORY Final Res ult [facility] [address] [place] [address], * ECG COMPLETE (03/25/2025 1:54 PM EDT) Ventricular Rate 65 BPM [facility] Atrial Rate 65 BPM [facility] P-R Interval 194 ms [facility] QRS Duration 92 ms [facility] QT Interval 424 ms [facility] QTC Calculation (Bazett) 440 ms [facility] Calculated P [place] 69 degrees [facility] Calculated R [place] 64 degrees [facility] [place] Calculated T [place] 59 degrees [facility] 03/25/2025 1:54 PM EDT Impressions [facility] [place] - 03/26/2025 9:51 AM EDT SINUS RHYTHM WITH MARKED SINUS ARRHYTHMIA Septal Infarct , AGE UNDETERMINED ABNORMAL ECG Confirmed by MERON MARTINI M.D. ([id number]) on 03/26/2025 9:51:43 AM Narrative [facility] [place] - 03/26/2025 9:51 AM EDT NAME : FERNANDO FRITZ PID : [id number] : 1950 Gender : Female Race : ORD : [id number] Procedure Date : Mar 25 2025 13:54:48 Edit Date : Mar 26 2025 09:51:44 Diagnosis: SINUS RHYTHM WITH MARKED SINUS ARRHYTHMIA Septal Infarct , AGE UNDETERMINED ABNORMAL ECG Confirmed by MERON MARTINI M.D. ([id number]) on 03/26/2025 9:51:43 AM Test Reason : I49.1 Premature atrial complexes Location : 145 : [facility] Overread By : MERON MARTINI M.D. Edited By : MERON MARTINI M.D. Referred By : , Acquired by : es, us Richard Mae APRN.FLOORWORKER DISTRIBUTOR EKG Final Res ult [facility] [address] [place] [address] * LIPID PANEL, NONFASTING (12/27/2022 9:40 AM EST) Total Cholesterol, Nonfasting 148 <200 mg/dL 12/27/2022 4:19 PM EST [facility] Comment: <200 mg/dL, Desirable 200-239 mg/dL, Borderline high >239 mg/dL, High Triglycerides, Nonfasting 62 <150 mg/dL 12/27/2022 4:19 PM EST [facility] Comment: <150 mg/dL, Normal 150-199 mg/dL, Borderline high 200-499 mg/dL, High >499 mg/dL, Very high HDL Cholesterol, Nonfasting 69 >39 mg/dL 12/27/2022 4:19 PM [facility] Comment: 40-59 mg/dL, Acceptable >59 mg/dL, High: Negative risk factor for coronary heart disease <40 mg/dL, Low: Positive risk factor for coronary heart disease LDL Cholesterol Calculated, Nonfasting 67 <100 mg/dL 12/27/2022 4:19 PM [facility] Comment: <100 mg/dL, Optimal 100-129 mg/dL, Near optimal/above optimal 130-159 mg/dL, Borderline high 160-189 mg/dL, High >189 mg/dL, Very high Secondary prevention optimal LDL Cholesterol levels are recommended to be < 70 mg/dL Non HDL Cholesterol, Nonfasting 79 <130 mg/dL 12/27/2022 4:19 PM [facility] Comment: <130 mg/dL, Optimal 130-159 mg/dL, Near optimal/above optimal 160-189 mg/dL, Borderline high 190-219 mg/dL, High >219 mg/dL, Very high Secondary prevention optimal non HDL Cholesterol levels are recommended to be <100 mg/dL VLDL Cholesterol, Nonfasting 12 <30 mg/dL 12/27/2022 4:19 PM [facility] Total Chol/HDL Ratio, Nonfasting 2.14 <5.10 mg/dL 12/27/2022 4:19 PM [facility] LDL/HDL Ratio, Nonfasting 0.97 <2.54 mg/dL 12/27/2022 4:19 PM [facility] Comment: Reference: 1. National Cholesterol Education Program ATP III Guideline At-A-Glance Quick Desk Reference: National Heart, Lung, and Blood [place]. National Institutes of Health. 2001: NIH Publication No. 01-3305. 2. An International Atherosclerosis Society position paper: global recommendations for the management of dyslipidemia: executive summary, Atherosclerosis. 2014: 232(2):410-413. Blood BLOOD SPECIMEN / Unknown Venipuncture / Unknown 12/27/2022 9:40 AM EST 12/27/2022 9:41 AM EST us Richard Mae DIRECTOR OF CONSUMER MARKETING.FLOORWORKER DISTRIBUTOR LABORATORY Final Res ult [facility] [address] [place] [address], from Last 3 Months or Most Recently Relevant to Health [place] [address] [employer] SUPPLEMENT Care Teams Technical Writing Lead/Mgr Relationship Specialty Start Date End Date Pepito Guajardo PCP - General Internal Medicine 08/04/15 Amparo Nguyen LSW Typo Machine Operator 12/12/14
--- OUTSIDE RECORDS SUMMARY | 2025-05-14 07:53 | XMS_ITS | Clinical Summary ---
Author Organization [facility] Address [address] [place] [address] Care Team Providers Care Regional Vice President Surgical Sales Name Role Phone Unavailable Primary Care Provider Unavailabl e Encounters Date Type Department Care Team Description 03/17/2025 External Result Encounter [facility] External Department Unsolicited Provider, Generic External Data from Last 3 Months Social History Tobacco Use Types Packs/Day Years Used Date Smoking Tobacco: Never Assessed Comments Unknown Sex and Gender Information Value Date Recorded Sex Assigned at Not on file Legal Sex Female 7:19 PM EDT Gender Identity Not on file Sexual Orientation Not on file Last Filed Vital Signs Vital Sign Reading Time Taken Comments Blood Pressure 138/80 11/23/2020 12:00 PM EST Pulse - - Temperature - - Respiratory Rate - - Oxygen Saturation - - Inhaled Oxygen Concentration - - Weight 63.7 kg (140 lb 6.4 oz) 11/23/2020 12:00 PM EST Height 163.8 cm (5' 4.5 ) 11/23/2020 12:00 PM ES T Body Mass Index 23.73 11/23/2020 12:00 PM EST Plan of Treatment Health Maintenance Due Date Last Done Comments CT Colonography 1950 FIT-DNA 1950 FIT 1950 FOBT 1950 Sigmoidoscopy 1950 Pneumococcal Vaccine: 65+ Ye ars (2 of 2 - PCV) 06/23/2017 06/23/2016, 11/03/2014, 07/30/2014 Influenza Vaccine (#1) 2025 , 09/26/2023, 08/31/2022, Additional history exists Mammogram 03/26/2026 03/26/2025, 02/27, 12/20/2023, Additional history exists Colonoscopy 05/29/2034 05/29/2024, 05/29/2024 Colorectal Cancer Screening 05/29/2034 Procedures Procedure Name Priority Date/Time Associated Diagnosis Comments BI MAMMOGRAM SCREENING TOMOSYNTHESIS BILATERAL 03/17/2025 9:45 AM EDT from Last 3 Months Results * Bilateral screening mammogram with tomosynthesis [...] Holcomb M.D. 03/17/2025 9:47 AM Dictation Location: [facility] Dictated By: Jose Holcomb MD 03/17/2545 Signed By: <Electronically signed by Jose Holcomb MD in [place]> 03/17/25 0947 Narrative 03/17/2025 9:50 AM EDT [facility] [address] [place] [address] Mammography Report Signed Patient: Lesvia Fritz I MR#: [id number] : 1950 Acct:[id number] Age/Sex: 74 / F Adm Date: 03/17/25 Loc: [place] Room: Type: [facility] Attending Dr: Referral Self Ordering Provider: SELF,REFERRAL Date of Service: 03/17/25 Procedure(s): MM screening mammo BI w/CAD Accession Number(s): ([id number]) MM/MM screening mammo BI w/CAD: SCREENING Copies to: Pepito Guajardo DO SELF,REFERRAL Carlos King DO CLINICAL DATA: Screening for malignancy. SCREENING MAMMOGRAM - FULL FIELD DIGITAL WITH TOMOSYNTHESIS AND CAD COMPARISON:Dating back to 2019 Tomosynthesis craniocaudal and mediolateral oblique views of both breasts were obtained using low- dose digital technique. This examination was reviewed with the aid of CAD. The breast tissue is composed of scattered fibroglandular densities. There are no dominant masses, typically malignant calcifications or architectural distortion. There has been no significant interval change. MM/MM screening mammo BI w/CAD Procedure Note Radiology, Radiologist, MD - 03/17/2025 [place] [address] Mammography Report Signed Patient: Lesvia Fritz IMR#: [id number] : 1950Acct:[id number] Age/Sex: 74 / FAdm Date: 03/17/25 Loc: [place] Room:Type: [facility] Attending Dr: Referral Self Ordering Provider: SELF,REFERRAL Date of Service: 03/17/25 Procedure(s): MM screening mammo BI w/CAD Accession Number(s): ([id number]) MM/MM screening mammo BI w/CAD:SCREENING Copies to: Pepito Guajardo DO SELF,REFERRAL Carlos King DO CLINICAL DATA: Screening [...] Holcomb M.D. 03/17/2025 9:47 AM Dictation Location: [facility] Dictated By: Jose Holcomb MD 03/17/25 0945 Signed By: <Electronically signed by Jose Holcomb MD in [place]> 03/17/25 0947 Generic External Data Provider IMG BI PROCEDURES Final Result from Last 3 Months Insurance MEDICARE AET
--- OUTSIDE RECORDS SUMMARY | 2025-05-14 07:53 | XMS_ITS | Encounter Summary ---
Author Organization [facility] Address [address] [place], [place] [id number] Care Team Providers Care Conveyor Mechanic Name Role Phone Amparo Nguyen DIE MECHANIC Unavailable Unavailab Pepito Dai Primary Care Provider [phone] Source Comments In the event this information is protected by the Federal Confidentiality of Alcohol and Drug AbusePatient Records regulations: The Federal rules restrict any use of the information to criminally investigate or prosecute any alcohol or drug abuse patient.[facility] Encounter Details Date Type Department Care Team (Late st Contact Info) Description 03/04/2020 Get Medical Advice Cardiology [address] [place] [address] Andres Stuart MD [address] [place], [place] [id number] RE: Non-Urgent Medical Question Social History Tobacco Use Types Packs/Day Years Used Date Smoking Tobacco: Never Smokeless Tobacco: Never Alcohol Use Standard Drinks/Week Comments Yes 0 (1 standard drink = 0.6 oz pur e alcohol) social PHQ-2 Answer Date Recorded PHQ-2 score 0 12/17/2018 Comments No Sex and Gender Information Value Date Recorded Sex Assigned at Female 12/21/2020 3:00 PM EST Legal Sex Female 10:13 AM EST Gender Identity Female 12/21/2020 3:00 PM EST Sexual Orientation Straight 12/21/2020 3: 03 PM EST Occupation Industry Job Start Date Job End Date retired Not on file Not on file Not on file documented as of this encounter Functional Status * Are you deaf or do you have serious difficulty hearing? Answer Date of Assessment Author No 04/28/2015 10:04 AM EDT Sa Barbara ra FUR CUTTING MACHINE OPERATOR * Are you blind or do you have serious difficulty seeing, even when wearing glasses? Answer Date of Assessment Author Yes 04/28/2015 10:04 AM EDT Klemauro Sa ra FUR CUTTING MACHINE OPERATOR * Do you have serious difficulty walking or climbing stairs? Answer Date of Assessment Author No 04/28/2015 10:04 AM EDT Klemauro Sa ra FUR CUTTING MACHINE OPERATOR * Do you have difficulty dressing or bathing? Answer Date of Assessment Author No 04/28/2015 10:04 AM EDT Klemauro Sa ra FUR CUTTING MACHINE OPERATOR * Because of a physical, mental, or emotional condition, do you have difficulty doing errands alone such as visiting a doctor's office or shopping? Answer Date of Assessment Author Yes 04/28/2015 10:04 AM EDT Barbara Sa ra FUR CUTTING MACHINE OPERATOR documented as of this encounter Mental Status * Because of a physical, mental, or emotional condition, do you have serious difficulty concentrating, remembering, or making decisions? 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
--- OUTSIDE RECORDS SUMMARY | 2025-05-14 07:53 | XMS_ITS | Encounter Summary ---
Author Organization [facility] Address [address] [place] [id number] Care Team Providers Care Lieutenant General Name Role Phone Amparo Nguyen COURTESY VAN DRIVER Unavailable Unavailab Pepito Dai Primary Care Provider [phone] Source Comments In the event this information is protected by the Federal Confidentiality of Alcohol and Drug AbusePatient Records regulations: The Federal rules restrict any use of the information to criminally investigate or prosecute any alcohol or drug abuse patient.[facility] Encounter Details Date Type Department Care Team (Late st Contact Info) Description 04/20/2018 Patient Msg Pediatrics [place] [address] [place] [address] Provider, [facility] Appointment Scheduling Reminder Social History Tobacco Use Types Packs/Day Years Used Date Smoking Tobacco: Never Smokeless Tobacco: Never Alcohol Use Standard Drinks/Week Comments Yes 0 (1 standard drink = 0.6 oz pur e alcohol) social Comments No Sex and Gender Information Value [...] Author No 04/28/2015 10:04 AM EDT Sa belem Jimenez TANK CAR CLEANER * Are you blind or do you have serious difficulty seeing, even when wearing glasses? Answer Date of Assessment Author Yes 04/28/2015 10:04 AM EDT Sa Barbara ra TANK CAR CLEANER * Do you have serious difficulty walking or climbing stairs? Answer Date of Assessment Author No 04/28/2015 10:04 AM EDT Sa Barbara ra TANK CAR CLEANER * Do you have difficulty dressing or bathing? Answer Date of Assessment Author No 04/28/2015 10:04 AM EDT Sa Barbara ra TANK CAR CLEANER * Because of a physical, mental, or emotional condition, do you have difficulty doing errands alone such as visiting a doctor's office or shopping? Answer Date of Assessment Author Yes 04/28/2015 10:04 AM EDT Sa belem Jimenez TANK CAR CLEANER documented as of this encounter Mental Status * Because of a physical, mental, or emotional condition, do you have serious difficulty concentrating, remembering, or making decisions? 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
--- OUTSIDE RECORDS SUMMARY | 2025-05-14 07:53 | XMS_ITS | Encounter Summary ---
Author Organization [facility] Address [address] [place] [address] Care Team Providers Care Rn Teacher Name Role Phone Unavailable Primary Care Provider Unavailabl e Encounter Details Date Type Department Care Team (Late st Contact Info) Description 12/21/2023 Orders Only [facility] [address] [facility] [address] [place] [id number] Carlos King DO [address] [facility] [address] [place] [address] Social History Tobacco Use Types Packs/Day Years [...] Procedure Name Priority Date/Time Associated Diagnosis Comments MAMMOGRAM-DIAGNOSTIC* Routine 12/20/2023 9:45 AM EST documented in this encounter Results * MAMMOGRAM-DIAGNOSTIC* (12/20/2023 9:45 AM EST) Anatomical Region Laterality Modality Radiographic Nichole ging Carlos King DO IMG XR PROCEDURES Final Resu lt documented in this encounter Visit Diagnoses Not on filedocumented in this encounter
--- NOTE | 2025-05-14 07:55 | US_ITS ---
The [address] [address] Patient Name: FERNANDO RAMOS MRN: [id number] date: 1950 Sex: F Assigned Patient Location: US Current Patient Location: US Accession/Order Number: [id number] Exam Date: 05/14/2025 09:59 Report Date: 05/14/2025 10:06 At the request of: INDIA SOLIS MD Procedure: US renal BI BILATERAL RENAL AND BLADDER ULTRASOUND CLINICAL HISTORY: Follow-up kidney stones COMPARISON: CT 08/18/2024 and ultrasound 06/27/2024 Estimation of renal size is approximately 10.2 cm on the right and 11.1 cm on the left. There are bilateral echogenic foci with twinkling artifact suggesting stones. The largest is on the right is at the inferior pole measuring 5 mm. The largest on the left is at the superior pole, also approximately 5 mm in size. There is a suspected small 1 cm angiomyolipoma at the spine pole the right kidney. Parapelvic renal cysts are seen. There is slight fullness to the left renal collecting system. No right hydronephrosis is seen. There is no perinephric fluid. The urinary bladder is partially distended with a volume of 479 mL. No contour or intraluminal abnormalities are seen. US/US renal BI IMPRESSION: BILATERAL NEPHROLITHIASIS. MINOR LEFT HYDRONEPHROSIS, UNDETERMINED ETIOLOGY. 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 Impression dictated by: Lorene Spencer M.D. 05/14/2025 10:06 AM Dictation Location: [place] [address] Electronically authenticated by: [id number] Y Date: 05/14/2025 10:06
--- NOTE | 2025-05-14 08:02 | XR_ITS ---
The [address] [address] Patient Name: FERNANDO RAMOS MRN: [id number] date: 1950 Sex: F Assigned Patient Location: US Current Patient Location: US Accession/Order Number: [id number] Exam Date: 05/14/2025 08:50 Report Date: 05/14/2025 08:52 At the request of: INDIA SOLIS MD Procedure: XR abdomen 1V SINGLE VIEW ABDOMEN COMPARISON: CT 08/21/2024 CLINICAL DATA: Follow-up right renal stone. Supine view of the abdomen and pelvis was obtained. There is air within the stomach. There is air and stool within the colon. There is no dilated small bowel. The left kidney is partially obscured. No obvious radiopaque renal or ureteral stones are identified. No soft tissue masses are seen. There are splenic granulomas. There is slight dextroscoliotic curvature and mild degenerative change involving the lower lumbar spine. XR/XR abdomen 1V IMPRESSION: NO OBVIOUS RADIOPAQUE STONES WITHIN LIMITS OF BOWEL GAS AND STOOL. Impression dictated by: Lorene Spencer M.D. 05/14/2025 8:52 AM Dictation Location: [place] [address] Electronically authenticated by: [id number] Y Date: 05/14/2025 08:52
--- OUTSIDE RECORDS SUMMARY | 2025-05-14 08:10 | XMS_ITS | CCD ---
Author Organization [facility] Inform ion [facility] Care Team Providers Care Assembly Worker Name Role Phone Amparo Garcia Unavailable Unavailab Rachael Dai Primary Care Provider DO Rachael Canela Primary Care Provider [phone] DO Rachael Canela Other Provider Self, Referral Attending Provider Unavailable DO Carlos King Referring Provider DR INDIA SOLIS Admitting Unavailable IRMA, DR OSBORNE Attending Unavailable ROLA, DR CANO Primary Care Unavailable DR INDIA SOLIS Consulting Unavailable MARY KATE, DR MEERA Yang Consulting Unavailable RACHAEL CANELA Primary Care Physician Amparo Garcia Unavailable Unavailab Rachael Dai Primary Care Provider DO Rachael Canela Primary Care Provider Self, Referral Attending Provider Unavailable DO Carlos King Referring Provider Rachael Canela Primary Care Provider RACHAEL CANELA Referring Unavailable RACHAEL CANELA Primary Care Unavailable RACHAEL CANELA Admitting Unavailable RACHAEL CANELA Attending Unavailable RACHAEL CANELA Referring Unavailable RACHAEL CANELA Primary Care Unavailable RACHAEL CANELA Attending Unavailable RACHAEL CANELA Referring Unavailable RACHAEL CANELA Primary Care Unavailable RACHAEL CANELA Attending Unavailable RACHAEL CANELA Referring Unavailable RACHAEL CANELA Primary Care Unavailable RACHAEL CANELA Attending Unavailable RACHAEL CANELA Referring Unavailable RACHAEL CANELA Primary Care Unavailable RACHAEL CANELA Attending Unavailable YUHAS, RACHAEL L Referring Unavailable YUHAS, RACHAEL L Primary Care Unavailable YUHAS, RACHAEL L Referring Unavailable YUHAS, RACHAEL L Primary Care Unavailable Unavailable Primary Care Provider UnavailVANDANA Burton Attending Unavailable YUHAS, RACHAEL L Referring Unavailable RODRIGUEZ, VANDANA Attending Unavailable YUHAS, RACHAEL L Referring Unavailable RODRIGUEZ, VANDANA Attending Unavailable YUHAS, RACHAEL L Referring Unavailable ROSALIO YU Attending Unavailable YUHAS, RACHAEL L Referring Unavailable RODRIGUEZ, VANDANA Attending Unavailable YUHAS, RACHAEL L Referring Unavailable Yuhas DO, Rachael L Primary Care Provider [phone] YUHAS, RACHAEL L Referring Unavailable YUHAS, RACHAEL L Primary Care Unavailable YUHAS, RACHAEL L Referring Unavailable YUHAS, RACHAEL L Primary Care Unavailable Carlos King Referring Unavailable Self, Referral Admitting Unavailable Self, Referral Attending Unavailable Yuhas, Rachael Primary Care Unavailable NITZA MAE Referring Unavailable YUHAS, RACHAEL PAZ Primary Care Unavailable NITZA MAE Attending Unavailable YUHAS, RACHAEL PAZ Primary Care Unavailable HAZARIKA, SUROVI Attending Unavailable HAZARIKA, SUROVI Referring Unavailable YUHAS, RACHAEL LARRY Primary Care Unavailable HAZARIKA, SUROVI Referring Unavailable YUHAS, RACHAEL LARRY Primary Care Unavailable Yuhas DO, Rachael Kaufman Primary Care Provider India SOLIS Attending Unavailable India SOLIS Attending Unavailable Radha Bustillos Attending Unavailable Allergies Allergy Classification Reported Allergen(s) Allergy Type Date of Onset Reaction(s) Facility (20 sources) heparin; Translations: [heparin] Drug Allergy 5 Other: See Comments, Platelet factor 4-heparin complex Ab, bleeding [facility] Work Phone: (20 sources) Sulfonamides (Antibiotic); Translations: [SULFA (SULFONAMIDE ANTIBIOTICS)] Drug Allergy 2 Rash [facility] Work Phone: (1 source) heparin Drug Allergy 5 [facility] Repository (1 source) Sulfonamides (Antibiotic) Drug allergy (disorder) 0 [facility] Repository (5 sources) Sulfonamides (Antibiotic); Translations: [sulfa drugs] Drug allergy Eruption of skin (disorder) [facility] Medications Current Medications Medication Drug Class(es) Dates Sig (Normalized) Sig (Original) acetaminophen 325 mg oral tablet (20 sources) Start: 01-06-2015 acetaminophen (TYLENOL) 325 mg tablet Take 2 tablets (650 mg total) by mouth. 01/06/2015 Active Comment on above: Take 2 tablets by mo uth every 6 hours as needed for Pain (DO NOT EXCEED 4,000 MG IN 24 HOUR PERIOD). atorvastatin 10 mg oral tablet (20 sources) HMG-CoA Reductase Inhibitor Start: 12-09-2022 End: 11-20-2024 take 1 tablet by mouth once daily atorvastatin (LIPITOR) 10 mg tablet Indications: Hyperlipidemia, unspecified TAKE 1 TABLET BY MOUTH ONCE DAILY 90 tablet 1 11/20/2024 Active Comment on above: Take 10 mg by mouth once daily. cholecalciferol 0.025 mg oral tablet (20 sources) Vitamin D take 1 tablet by mouth in the morning cholecalciferol 1,000 units tablet Take 1 tablet (1,000 Units total) by mouth in the morning. Active take 1 capsule by mouth every we ek cholecalciferol, Vitamin D3, (VITAMIN D3) 1,250 mcg (50,000 unit) cap capsule Take 50,000 Units by mouth one time a week. Active Comment on above: Take 50,000 Units by mouth one time a week. furosemide 20 mg oral tablet (6 sources) Loop Diuretic Start: 2023 furosemide (LASIX) 20 mg tablet Indications: S/P AVR (aortic valve replacement) and aortoplasty , SVT (supraventricular tachycardia) ([facility]) Take 1 tablet by mouth as directed. TAKE 20 MG DAILY NEEDED FOR WEIGHT INCREASE OF >5 LBS OVER 3 DAYS OR WORSENING LEG SWELLING. 30 tablet 3 02/28/2024 Active hydroCHLOROthiazide 12.5 mg oral capsule (20 sources) Thiazide Diuretic Start: 2021 End: 2024 take 1 capsule by mouth once daily hydroCHLOROthiazide (MICROZIDE) 12.5 mg capsule Take 1 capsule (12.5 mg total) by mouth daily. 12/27/2022 Active Comment on above: Take 1 capsule by mo uth daily after breakfast. hydroCHLOROthiazide 25 mg / spironolactone 25 mg oral tablet (11 sources) Thiazide Diuretic, Aldosterone Antagonist Start: 2024 hydrochlorothiazide-spir onolactone 25 mg-25 mg Tab See Instructions, Refill(s) 0 Start Date: 11/11/24 Status: Ordered Start: 12-27-2023 End: 12-23-2024 take 0.5 tablet by mouth once daily spironolactone-hctz 25/25 (ALDACTAZIDE) 25-25 mg per tablet Indications: Nonrheumatic tricuspid valve regurgitation TAKE 1/2 (ONE-HALF) OF A TABLET BY MOUTH DAILY 45 tablet 3 12/23/2024 Active Comment on above: Take 0.5 tablets by mouth once daily. latanoprost 0.05 mg/ml ophthalmic solution (20 sources) Prostaglandin Analog Start: 12-09-2022 latanoprost (XALATAN) 0.005 % ophthalmic solution Refill(s) 0 12/09/2022 Active Start: 12-09-2022 latanoprost Op th 0.005% Jeanie Refill(s) 0 Start Date: 12/09/22 Status: Ordered take 1 drop(s) into the eye(s) once daily LATANOPROST OPHTHALMIC Use 1 Drop in eyes once daily. Active take 1 drop(s) into the eye(s) once daily LATANOPROST OPHTHALMIC Use 1 Drop in eyes once daily. 0 Active levothyroxine sodium 0.075 mg oral tablet (20 sources) l-Thyroxine Start: 06-01-2020 levothyroxine Daily, Refills(s) 0 Start Date: 06/01/20 Status: Ordered Start: 03-23-2018 End: 10-30-2024 take 1 tablet by mouth once daily levothyroxine (SYNTHROID, LEVOTHROID) 75 MCG tablet Indications: Hypothyroidism, unspecified TAKE 1 TABLET BY MOUTH DAILY 90 tablet 1 10/30/2024 Active Comment on above: Take 1 tablet by brooklyn th daily before breakfast. Lisinopril (1 source) Angiotensin Converting Enzyme Inhibitor Start: 06-01-2020 lisinopril Oral, Daily, Refills(s) 0 Start Date: 06/01/20 Status: Ordered Magnesium (10 sources) Start: 11-11-2024 take 1 mg by mouth twice daily magnesium (as citrate) 83 mg oral tablet, chewable mg tab(s), Oral, BID, Refills(s) 0 Start Date: 11/11/24 Status: Ordered take 1 tablet by mouth once irene y Magnesium 250 mg tab Take 250 mg by mouth once daily. Active take 1 tablet by mouth once irene y Magnesium 250 mg tab Take 250 mg by mouth once daily. 0 Active Comment on above: Take 250 mg by mouth once daily. magnesium oxide 250 mg oral tablet (3 sources) take 1 tablet by mouth in the morning magnesium oxide 250 mg tablet Take 1 tablet (250 mg total) by mouth in the morning. Active 24 hr metoprolol succinate 50 mg extended release oral tablet (20 sources) beta-Adrenergic Edith Start: 11-11-2024 take 1 tablet by mouth once daily metoprolol succinate 50 mg ER Tab See Instructions, 1 tab(s) Oral Daily, Refills(s) 0 Start Date: 11/11/24 Status: Ordered Start: 08-28-2023 take 1 tablet by brooklyn th every twenty-four hours in the morning, then take 1 tablet by mouth at bedtime metoprolol succinate XL (TOPROL XL) 50 mg 24 hr tablet Take 1 tablet (50 mg total) by mouth in the morning and 1 tablet (50 mg total) before bedtime. 08/28/2023 Active Start: 06-27-2023 End: 08-23-2024 take 1 tablet by mouth twice daily metoprolol succinate ER (TOPROL XL) 50 mg 24 hr tablet Indications: S/P AVR (aortic valve replacement) and aortoplasty , APC (atrial premature contractions) , SVT (supraventricular tachycardia) ([facility]) take 1 tablet by mouth twice daily 180 tablet 3 08/23/2024 Active Start: 12-19-2022 End: 11-06-2023 take 2 [...] mg pm TAKE 2 TABLETS BY MO UT IN THE MORNING then TAKE 1 TABLET BY MOUTH IN THE EVENING Take 1 tablet by brooklyn th twice daily. Take 1 tablet by brooklyn th two times a day. 125 ml sodium chloride 9 mg/ml prefilled syringe (12 sources) Start: 06-27-2023 End: 09-25-2024 sodium chloride 0.9 % (flush) 10 mL (BD POSIFLUSH) Start: 12-27-2021 End: 03-28-2023 sodium chloride 0.9 % (flush ) 10 mL (BD POSIFLUSH) spironolactone 25 mg oral tablet (3 sources) Aldosterone Antagonist take 1 tablet by mouth in the morning spironolactone (ALDACTONE) 25 mg tablet Take 1 tablet (25 mg total) by mouth in the morning. Active Vitamin D2 2000 intl units oral capsule (3 sources) Start: 06-01-20 take 1 capsule by mouth once daily Vitamin D2 2000 intl units oral capsule International_Unit cap(s), Oral, Daily, Refills(s) 0 Start Date: 06/01/20 Status: Ordered Vitamin D3 (1 source) Start: 11-11-19 25 Vitamin D3 Refills(s) 0 Start Date: 11/11/24 Status: Ordered Completed/Discontinued Medications Medication Drug Class(es) Dates Sig (Normalized) Sig (Original) amoxicillin 500 mg oral tablet (20 sources) Penicillin-class Antibacterial Start: 08-02-2023 End: 11-06-2023 amoxicillin (AMOXIL) 500 MG tablet Dental prn 0 08/02/2023 11/06/2023 Discontinued (Therapy completed) Start: 03-22-2016 Amoxicillin 50 0 mg tablet Take 4 tablets by mouth 30-60 minutes before dental procedure 4 tablet 11 03/22/2016 Active Comment on above: Take 4 tablets by mo [facility] 30-60 minutes before dental procedure dapagliflozin 5 mg oral tablet (3 sources) Sodium-Glucose Cotransporter 2 Inhibitor Start: End: take 1 tablet by mouth once daily at breakfast dapagliflozin propanediol (FARXIGA) 5 mg tablet Take 1 tablet by mouth daily with breakfast. 90 tablet 3 12/27/2023 12/28/2023 Discontinued (Not on Formulary) Comment on above: [facility]. 10 ml lidocaine hydrochloride 10 mg/ml injection (1 source) Antiarrhythmic, Amide Local Anesthetic Start: End: lidocaine (PF) 10 mg/mL (1 %) 4 mL injection (XYLOCAINE) meloxicam 15 mg oral tablet (2 sources) Nonsteroidal Anti-inflammatory Drug End: take 1 tablet by mouth once daily meloxicam (MOBIC) 15 mg tablet Take 15 mg by mouth once daily. 0 06/27/2023 Discontinued (Course of therapy completed) Comment on above: Take 15 mg by mouth once daily. perflutren lipid microspheres 1.3 mL in NaCl (PF) 0.9% 10 mL injection (DEFINITY) (10 sources) Start: End: perflutren lipid microspheres 1.3 mL in NaCl [...] tablet by brooklyn th daily at bedtime. timolol/dorzolamide /latanop/PF (TIMOLOL-DORZOLAMID -LATANOP,PF,) 0.5-2-0.005 % drop (14 sources) End: 03-25-2025 timolol/dorzolamide /latanop/PF (TIMOLOL-DORZOLAMID -LATANOP,PF,) 0.5-2-0.005 % drop Use 1 Drop in eyes every evening. 03/25/2025 Discontinued timolol/dorzolam jama/latanop/PF (THACVOE-MXCPKYLHMS-AQFQFEP,PF,) 0.5-2-0.005 % drop Use 1 Drop in eyes every evening. Active timolol/dorzolam jmaa/latanop/PF (RAWROJA-EEQNVCOFTV-IRYDXJR,PF,) 0.5-2-0.005 % drop Use 1 Drop in eyes every evening. 0 Active Comment on above: Use 1 Drop in eyes e very evening. 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)] Onset: 5 Resolved: 5 10-25-2021 Chronic Coagulation and hemorrhagic disorders (5 sources) Spontaneous ecchymoses; Translations: [Spontaneous ecchymosis] Onset: 4 08-08-2024 Episodic Congestive heart failure; nonhypertensive (18 sources) Acute on chronic diastolic heart failure; Translations: [Acute on chronic diastolic (congestive) heart failure] Onset: 4 12-27-2023 Chronic Disorders of lipid metabolism (20 sources) Hyperlipidemia; Translations: [Hyperlipidemia, unspecified] Onset: 5 10-25-2021 Chronic Essential hypertension (20 sources) Essential hypertension; Translations: [Essential (primary) hypertension] Onset: 5 Chronic Genitourinary symptoms and ill-defined conditions (20 sources) Stress incontinence (female) (male); Translations: [Genuine stress incontinence] Onset: 3 Chronic Heart valve disorders (20 sources) History of aortic valve replacement; Translations: [Presence of prosthetic heart valve] Onset: 1 Resolved: 5 Chronic Heart valve disorders (4 sources) Heart murmur 06-01-2020 Episodic Osteoarthritis (4 sources) Arthritis 06-01-2020 Chronic Other and unspecified benign neoplasm (1 source) Polyp of colon; Translations: [Polyp of colon] Onset: 4 Episodic Other and unspecified benign neoplasm (1 source) Benign lipomatous tumor; Translations: [Benign lipomatous neoplasm, unspecified] Onset: 5 Episodic Other connective tissue disease (1 source) Impingement syndrome of left shoulder region; Translations: [Impingement syndrome of left shoulder] 05-30-2023 Episodic Other diseases of kidney and ureters (4 sources) Hydronephrosis due to ureteral obstruction 06-01-2020 Episodic Other ear and sense organ disorders (1 source) Bilateral hearing loss; Translations: [Sensorineural hearing loss, unilateral, right ear, with restricted hearing on the contralateral side] 12-05-2024 Chronic Other gastrointestinal disorders (1 source) Other fecal abnormalities; Translations: [Other fecal abnormalities] Onset: 4 Episodic Other hematologic conditions (1 source) History of immune thrombocytopenia; Translations: [Personal history of diseases of the blood and blood-forming organs and certain disorders involving the immune mechanism] 03-25-2025 Episodic Other hematologic conditions (1 source) Personal history of diseases of the blood and blood-forming organs and certain disorders involving the immune mechanism; Translations: [History of heparin-induced thrombocytopenia] Onset: 5 Episodic Other non-traumatic joint disorders (1 source) Pain in left shoulder; Translations: [Pain in joint, shoulder region] 08-21-2024 Episodic Other screening for suspected conditions (not mental disorders or infectious disease) (3 sources) Encounter for screening for malignant neoplasm of colon; Translations: [Encounter for screening for osteoporosis] Onset: 4 Episodic Other skin disorders (1 source) Loss of hair; Translations: [Nonscarring hair loss, unspecified] Episodic Residual codes; unclassified (1 source) Pain; Translations: [Pain, unspecified] 05-30-2023 Episodic Spondylosis; intervertebral disc disorders; other back problems (20 sources) Thoracic facet joint pain; Translations: [Other spondylosis, thoracic region] Onset: 2 Resolved: 3 02-05-2021 Chronic Spondylosis; intervertebral disc disorders; other back problems (7 sources) Sciatica, left side; Translations: [Disorder of left sciatic nerve] Onset: 4 08-15-2024 Episodic Thyroid disorders (20 sources) Hypothyroidism; Translations: [Hypothyroidism, unspecified] Onset: 5 10-25-2021 Chronic Unclassified (18 sources) SUMMARY Onset: 5 01-06-2015 Unclassified (1 source) screening Onset: 4 Unclassified (1 source) Rash Onset: 4 Unclassified (1 source) medicare annual wellness Onset: 4 Unclassified (1 source) Heparin-induced thrombocytopenia, unspecified; Translations: [Heparin-induced thrombocytopenia, unspecified] Onset: 3 Unclassified (1 source) Angiomyolipoma 11-11-2024 Past or Other Problems Problem Classification Problem Date Documented Da te Episodic/Chronic Abdominal pain (20 sources) Abdominal pain; Translations: [Right flank pain] Onset: 01-30-2023 06-01-2020 Episodic Acute cerebrovascular disease (12 sources) Cerebrovascular accident; Translations: [Cerebral infarction, unspecified] Onset: 12-07-2014 Resolved: 12-09-2014 Chronic Acute posthemorrhagic anemia (6 sources) Acute posthemorrhagic anemia; Translations: [Acute posthemorrhagic anemia] Onset: 12-01-2014 Resolved: 12-03-2014 Episodic Aortic; peripheral; and visceral artery aneurysms (6 sources) Aneurysm of ascending aorta; Translations: [Ascending aortic aneurysm] Resolved: 12-02-2014 Chronic Calculus of urinary tract (20 sources) Calculus of kidney; Translations: [History of calculus of kidney] Onset: 12-05-2022 Episodic Conditions associated with dizziness or vertigo (20 sources) Vertigo of central origin; Translations: [Vertigo of central origin] Onset: 03-20-2015 03-20-2015 Episodic Deficiency and other anemia (20 sources) Anemia; Translations: [Anemia, unspecified] Onset: 12-27-2014 10-25-2021 Episodic Diabetes mellitus without complication (6 sources) Metabolic stress hyperglycemia; Translations: [Hyperglycemia, unspecified] Onset: 12-03-2014 Resolved: 12-05-2014 Episodic Genitourinary symptoms and ill-defined conditions (19 sources) Christian hematuria; Translations: [Gross hematuria] Onset: 01-30-2023 06-01-2020 Episodic Mood disorders (15 sources) Mood disorders Onset: 08-08-2024 Resolved: 12-05-2024 08-08-2024 Nausea and vomiting (6 sources) Nausea; Translations: [Nausea] Onset: 12-04-2014 Resolved: 12-06-2014 Episodic Nonspecific chest pain (20 sources) Pain of intercostal space; Translations: [Intercostal pain] Onset: 12-24-2020 Resolved: 06-27-2023 02-05-2021 Episodic Nutritional deficiencies (6 sources) Malnutrition (calorie); Translations: [Moderate protein-calorie malnutrition] Onset: 12-24-2014 Resolved: 06-29-2021 10-25-2021 Chronic Other aftercare (20 sources) Patient encounter status; Translations: [Encounter for therapeutic drug level monitoring] Onset: 12-18-2014 05-27-2024 Episodic Other aftercare (20 sources) Long-term current use of anticoagulant; 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] Onset: 01-03-2015 01-30-2023 Episodic Other and unspecified benign neoplasm (9 sources) Polyp of sigmoid colon; Translations: [Polyp of colon] Onset: 05-29-2024 05-29-2024 Episodic Other diseases of kidney and ureters (15 sources) Hydronephrosis with renal and ureteral calculous obstruction; Translations: [Calculus of ureter] Onset: 01-30-2023 01-30-2023 Episodic Other diseases of veins and lymphatics (20 sources) Peripheral venous insufficiency; Translations: [Venous insufficiency (chronic) (peripheral)] Onset: 06-27-2023 Episodic Other eye disorders (20 sources) Divergence insufficiency ; Translations: [Other specified disorders of binocular movement] Onset: 06-23-2015 06-23-2015 Episodic Other lower respiratory disease (20 sources) Dyspnea on exertion; Translations: [Other forms of dyspnea] Onset: 06-29-2021 Episodic Other nervous system disorders (6 sources) Acute postoperative pain; Translations: [Other acute postprocedural pain] Onset: 12-02-2014 Resolved: 12-03-2014 Episodic Phlebitis; thrombophlebitis and thromboembolism (20 sources) Axillary vein thrombosis; Translations: [Acute embolism and thrombosis of unspecified axillary vein] Onset: 12-18-2014 Resolved: 03-30-2023 10-25-2021 Episodic Pleurisy; pneumothorax; pulmonary collapse (6 sources) Atelectasis; Translations: [Atelectasis] Onset: 12-02-2014 Resolved: 12-16-2014 10-25-2021 Episodic Residual codes; unclassified (6 sources) Altered mental status; Translations: [Altered mental status, unspecified] Onset: 12-09-2014 Resolved: 12-20-2014 Episodic Residual codes; unclassified (1 source) Asymptomatic menopausal state; Translations: [Asymptomatic menopausal state] Onset: 12-21-2023 Episodic Residual codes; unclassified (1 source) Postmenopausal state; Translations: [Asymptomatic menopausal state] 11-28-2023 Episodic Results Test Name Value Interpretation Reference Range Facility Reminderson 04-08-2025 Reminders Reminders From: Nery Potts To: EU - Recalls [facility]; Sent: 11/11/2024 13:18:03 EST Show up: 02/27/2025 13:17:00 EDT Subject: renal US and KUB Due Date/Time: 04/14/2025 13:18:00 EDT Reminder/Recall Patient needs Renal US and KUB at [facility] prior to April 2025 appt She uses [facility] Order faxed to [facility] today. Will monitor for results. Normal [facility] Basic metabolic 2000 panelon 03-25-2025 Anion gap [Moles/Vol] 11 mmol/L Normal 8-15 [facility] Comment on above: Order Comment: Speci men Type: BLOOD SPECIMEN Ordering Facility: [facility] Address: [address] [place] [address] Performed By: #### 2 432-2, #### [facility] CLIA [id number] [address] [place] [address] [place] Calcium [Mass/Vol] 10.1 mg/dL Normal 8.5-10.2 [facility] Comment on above: Order Comment: Speci mckenna Type: BLOOD SPECIMEN Ordering Facility: [facility] Address: [address] [place] [address] Performed By: #### 2 432-2, #### [facility] CLIA [id number] [address] [place] [address] [place] Chloride [Moles/Vol] 102 mmol/L Normal 98-107 [facility] Comment on above: Order Comment: Speci men Type: BLOOD SPECIMEN Ordering Facility: [facility] Address: [address] [place] [address] Performed By: #### 2 4321-2, #### [facility] CLIA [id number] [address] [place] [address] [place] CO2 [Moles/Vol] 28 mmol/L Normal 22-30 [facility] Comment on above: Order Comment: Brianda andres Type: BLOOD SPECIMEN Ordering Facility: [facility] Address: [address] [place] [address] Performed By: #### 2 432-2, #### [facility] CLIA [id number] [address] [place] [address] [place] Creatinine [Mass/Vol] 0.83 mg/dL Normal 0.58-0.96 [facility] Comment on above: Order Comment: Brianda men Type: BLOOD SPECIMEN Ordering Facility: [facility] Address: [address] [place] [address] Performed By: #### 2 4320-11, #### [facility] CLIA [id number] [address] [place] [address] [place] Creatinine and Glomerular filtration rate.predicted panel (S/P/Bld) 74 mL/min/1.73m??? Normal >=60 [facility] Comment on above: Order Comment: Brianda andres Type: BLOOD SPECIMEN Ordering Facility: [facility] Address: [address] [place] [address] Result Comment: Felicia mated Glomerular Filtration Rate [...] reflect actual GFR. Performed By: #### 2 4320-11, #### [facility] CLIA [id number] [address] [place] [address] [place] Glucose [Mass/Vol] 82 mg/dL Normal 74-99 [facility] Comment on above: Order Comment: Brianda andres Type: BLOOD SPECIMEN Ordering Facility: [facility] Address: [address] [place] [address] Result Comment: The [place] [employer] (ADA) provides guidance for cutoff [...] Standards of Medical Care in Diabetes 2016, [place] [employer]. Diabetes Care. 2016.39(Suppl 1). Performed By: #### 2 1-, #### [facility] CLIA [id number] [address] [place] [address] [place] Potassium [Moles/Vol] 4.9 mmol/L Normal 3.7-5.1 [facility] Comment on above: Order Comment: Speci men Type: BLOOD SPECIMEN Ordering Facility: [facility] Address: [address] [place] [address] Performed By: #### 2 4320-11, #### [facility] CLIA [id number] [address] [place] [address] [place] Sodium [Moles/Vol] 141 mmol/L Normal 136-144 [facility] Comment on above: Order Comment: Speci men Type: BLOOD SPECIMEN Ordering Facility: [facility] Address: [address] [place] [address] Performed By: #### 2 4320-11, #### [facility] CLIA [id number] [address] [place] [address] [place] Urea nitrogen [Mass/Vol] 19 mg/dL Normal 7-21 [facility] Comment on above: Order Comment: Speci men Type: BLOOD SPECIMEN Ordering Facility: [facility] Address: [address] [place] [address] Performed By: #### 2 4321-2, 78721-5 #### [facility] CLIA [id number] [address] [place] [address] [place] CBC panel Auto (Bld)on 03-25 Erythrocyte distribution width (RBC) [Ratio] 11.9 % 11.5 - 15.0 % [facility] Hematocrit (Bld) [Volume fraction] 47.8 % High 36.0 - 46.0 % [facility] Hemoglobin (Bld) [Mass/Vol] 15.7 g/dL High 11.5 - 15.5 g/dL [facility] Interpretation and review of laboratory results Abnormal [facility] MCH (RBC) [Entitic mass] 32.4 pg 26.0 - 34.0 pg [facility] MCHC (RBC) [Mass/Vol] 32.8 g/dL 30.5 - 36.0 g/dL [facility] MCV (RBC) [Entitic vol] 98.8 fL 80.0 - 100.0 fL [facility] Nucleated RBC (Bld) [#/Vol] NINF [facility] Platelet mean volume (Bld) [Entitic vol] 11.4 fL 9.0 - 12.7 fL [facility] Platelets (Bld) [#/Vol] 176 10*3/uL [facility] RBC (Bld) [#/Vol] 4.84 10*6/uL 3.90 - 5.2 0 m/uL [facility] WBC (Bld) [#/Vol] 7.27 10*3/uL [facility] Erythrocyte distribution width (RBC) [Ratio] 11.9 % Normal 11.5-15.0 [facility] Comment on above: Order Comment: Speci men Type: BLOOD SPECIMEN Ordering Facility: [facility] Address: [address] [place] [address] Performed By: #### 5 8410-2 #### [facility] CLIA [id number] [address] [place] [address] [place] Hematocrit (Bld) [Volume fraction] 47.8 % High 36.0-46.0 [facility] Comment on above: Order Comment: Speci men Type: BLOOD SPECIMEN Ordering Facility: [facility] Address: [address] [place] [address] Performed By: #### 5 8410-2 #### [facility] CLIA [id number] [address] [place] [address] [place] Hemoglobin (Bld) [Mass/Vol] 15.7 g/dL High 11.5-15.5 [facility] Comment on above: Order Comment: Speci men Type: BLOOD SPECIMEN Ordering Facility: [facility] Address: [address] [place] [address] Performed By: #### 5 8410-2 #### [facility] CLIA [id number] [address] [place] [address] [place] MCH (RBC) [Entitic mass] 32.4 pg Normal 26.0-34.0 [facility] Comment on above: Order Comment: Speci men Type: BLOOD SPECIMEN Ordering Facility: [facility] Address: [address] [place] [address] Performed By: #### 5 8410-2 #### [facility] CLIA [id number] [address] [place] [address] [place] MCHC (RBC) [Mass/Vol] 32.8 g/dL Normal 30.5-36.0 [facility] Comment on above: Order Comment: Speci men Type: BLOOD SPECIMEN Ordering Facility: [facility] Address: [address] [place] [address] Performed By: #### 5 8410-2 #### [facility] CLIA [id number] [address] [place] [address] [place] MCV (RBC) [Entitic vol] 98.8 fL Normal 80.0-100.0 [facility] Comment on above: Order Comment: Speci men Type: BLOOD SPECIMEN Ordering Facility: [facility] Address: [address] [place] [address] Performed By: #### 5 8410-2 #### [facility] CLIA [id number] [address] [place] [address] [place] Nucleated RBC (Bld) [#/Vol] 10*3/uL Normal <0.01 [facility] Comment on above: Order Comment: Speci men Type: BLOOD SPECIMEN Ordering Facility: [facility] Address: [address] [place] [address] Performed By: #### 5 8410-2 #### [facility] CLIA [id number] [address] [place], [place] [address] [place] Platelet mean volume (Bld) [Entitic vol] 11.4 fL Normal 9.0-12.7 [facility] Comment on above: Order Comment: Speci men Type: BLOOD SPECIMEN Ordering Facility: [facility] Address: [address] [place] [address] Performed By: #### 5 8410-2 #### [facility] CLIA [id number] [address] [place] [address] [place] Platelets (Bld) [#/Vol] 176 10*3/uL Normal 150-400 [facility] Comment on above: Order Comment: Speci men Type: BLOOD SPECIMEN Ordering Facility: [facility] Address: [address] [place] [address] Performed By: #### 5 8410-2 #### [facility] CLIA [id number] [address] [place], [place] [address] [place] RBC (Bld) [#/Vol] 4.84 10*6/uL Normal 3.90-5.20 [facility] Comment on above: Order Comment: Speci men Type: BLOOD SPECIMEN Ordering Facility: [facility] Address: [address] [place] [address] Performed By: #### 5 8410-2 #### [facility] CLIA [id number] [address] [place], [place] [address] [place] WBC (Bld) [#/Vol] 7.27 10*3/uL Normal 3.70-11.00 [facility] Comment on above: Order Comment: Speci men Type: BLOOD SPECIMEN Ordering Facility: [facility] Address: [address] [place] [address] Performed By: #### 5 8410-2 #### [facility] CLIA [id number] [address] [place] [address] [place] CNOVon 03-25-2025 CNOV Office Visit (CARDLO ) LESVIA RAMOS I ([id number]) 1950 F Date Time Provider Department 03/25/25 1:30 PM NITZA MAE During your visit today, we recorded the following information about you: Pulse Blood pressure Weight 76/minute 131/70 58.8 kg Nitza Mae APRN.KILNMAN 03/25/2025 3:12 PM Signed [facility] Jessie Wade Department of Cardiovascular Medicine SECTION OF REGIONAL CARDIOLOGY March 25, 2025 OUTPATIENT VISIT TYPE ESTABLISHED PRIMARY CARE PHYSICIAN: Rachael Canela DO SUBJECTIVE: CHIEF COMPLAINT: Patient presents with: Cardiology Follow Up HISTORY OF PRESENT ILLNESS: Lesvia Ramos is a 74 year old female who presents for CVM follow up. Last visit: 09/11/[address] Andres Boyd Doing well, no specific CV symptoms. No further palpitations. Weight has been consistent between 124-126 lbs. Today, patient reports generally feeling well and denies any chest pain, dyspnea, diaphoresis, jaw or arm pain, lightheadedness, dizziness, syncope, or palpitations. She notes a recent episode of mild dyspnea while using a [id number]-[id number] push mower, which required slightly more exertion than usual. This was a brief and isolated incident, and she denies any associated chest discomfort. She has not experienced any abnormal heartbeats recently. She reports a slight weight gain, which she attributes to increased food intake during a recent vacation. Her weight has been stable at home, ranging from 126 to 127 lbs. She has not needed to use Lasix, which was prescribed for fluid management if she gains 3 lbs within a short period. She expresses concern about easy bruising and thin skin, noting that she bruises easily with minor bumps. She denies any epistaxis, hematuria, or hematochezia. She is not on any anticoagulants or antiplatelet medications. 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 CV history/tests/imaging reviewed and summarized: bicuspid aortic [...] since then, but intermittent palpitations. Moderate TR REVIEW OF SYSTEMS: Detailed 14 systems reviewed. Pertinent information, positive and/or negative or non-contributory with the exception of pertinent positives described in HPI. Past Medical, Family and Social history reviewed; unchanged from prior. ASSESSMENT/PLAN: Lesvia Ramos was seen today for CVM follow up. Diagnoses and all orders for this visit: Encounter Diagnosis ICD-10-CM 1. 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 Abnormal bruising R23.3 COMPLETE BLOOD COUNT 3. SVT (supraventricular tachycardia) (HCC) I47.10 BASIC METABOLIC PANEL MAGNESIUM 4. Chronic diastolic heart failure (HCC) I50.32 5. Mixed hyperlipidemia E78.2 6. S/P AVR (aortic valve replacement) 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 Z95.2 7. Premature atrial complexes I49.1 BASIC METABOLIC PANEL MAGNESIUM ECG COMPLETE 8. History of heparin-induced thrombocytopenia Z86.2 9. Essential (primary) hypertension I10 -S/p AVR and aortic root repair for bicuspid aortic valve 11/2014. Echocardiogram August 2024-LVEF around 66 %, RV is normal in size, moderate TR, normal RA pressure and normal RVSP. TR severity has improved since prior. Prosthetic aortic valve functioning well. Pre-op cath 2014 with angiographically normal coronaries. Antibiotics-amoxicillin 2 gm 30 mins prior to dental procedures. -Chronic heart failure with preserved EF (66%), .ACC/AHA class C, NYHA class II. EDW~ 126 pounds. Couple of pounds weight gain over vacation. No acute decompensation. Continue lasix 20 mg daily as needed. -Primary Hypertension -reasonable controlled today. On Aldactone/hydrochloroth iazide 25 mg / 25 mg-half tablet daily Was unable to afford SGLT2 I Hyperlipidemia. On atorvastatin 10 mg daily. -Postoperative atrial flutter, no documented recurrence. Palpitations, deviously coincided with episodes of SVT by monitoring. Currently controlled on Toprol XL 50 mg bid, with occasional APC's.Continue magnesium supplementation at 250 mg daily PVCs, symptoms are currently controlled, monitoring for December 2023 with 11% PVC burden, normal LVEF. Will monitor for now. -Venous insufficiency, B/L LE. Currently controlled with compressions -Continue lifestyle modifications: Reduce sodium intake, regular aerobic exercise 30 mins/day for at least 5 (more content not included)... Normal [facility] ECG COMPLETEon 03-25-2025 ECG COMPLETE Ventricular Rate : 6 5 BPM Atrial Rate : 65 BPM P-R Interval : 194 ms QRS Duration : 92 ms Q-T Interval : 424 ms QTC Calculation(Bazett) : 440 ms Calculated P [place] : 69 degrees Calculated R [place] : 64 degrees Calculated T [place] : 59 degrees SINUS RHYTHM WITH MARKED SINUS ARRHYTHMIA Septal Infarct , AGE UNDETERMINED ABNORMAL ECG Confirmed by MERON MARTINI M.D. ([id number]) on 03/26/2025 9:51:43 AM NAME : LESVIA RAMOS PID : [id number] : 1950 Gender : Female Race : ORD : [id number] Procedure Date : Mar 25 2025 13:54:48 [...] By : , Acquired by : es, Normal [facility] Magnesium SerPl-mCncon 03-25 Magnesium [Mass/Vol] 2.1 mg/dL Normal 1.7-2.3 [facility] Comment on above: Order Comment: Speci men Type: BLOOD SPECIMEN Ordering Facility: [facility] Address: [address] [place] [address] Performed By: #### 2 4321-2, 31677-4 #### [facility] CLIA [id number] [address] [place] [address] [place] [address] [place] MM screening mammo BI w/CADo n 03-17-2025 MM screening mammo BI w/CAD [facility] [address] [place] [address] Mammography Report Signed Patient: Lesvia Ramos I MR#: [id number] : 1950 Acct:[id number] Age/Sex: 74 / F Adm Date: 03/17/25 Loc: [place] Room: Type: [facility] Attending Dr: Referral Self Ordering Provider: SELF,REFERRAL Date of Service: 03/17/25 Procedure(s): MM screening mammo BI w/CAD Accession Number(s): ([id number]) MM/MM screening mammo BI w/CAD: SCREENING Copies to: Rachael Canela DO SELF,REFERRAL Carlos King DO CLINICAL DATA: [...] Holcomb M.D. 03/17/2025 9:47 AM Dictation Location: [facility] Dictated By: Jose Holcomb MD 03/17/2545 Signed By: 03/17/25946 Normal [facility] COMPREHENSIVE METABOLIC PANE Young 12-05-2024 Albumin [Mass/Vol] 4.4 g/dL Normal 3.2-5.3 [facility] Comment on above: Performed By: #### C RY, 29881-8 #### [facility] ([id number]) [address], [address] [place] [address] ALP [Catalytic activity/Vol] 87 U/L Normal 39-130 [facility] Comment on above: Performed By: #### Jg RAZA, 10629-7 #### [facility] ([id number]) [address], [address] [place] [address] ALT [Catalytic activity/Vol] 20 U/L Normal 0-31 [facility] Comment on above: Performed By: #### Jg RAZA, 44033-8 #### [facility] ([id number]) [address], [address] [place] [address] Anion gap [Moles/Vol] 7 mmol/L Normal 5-15 [facility] Comment on above: Performed By: #### Jg RAZA, 95380-8 #### [facility] ([id number]) [address], [address] [place] [address] AST [Catalytic activity/Vol] 21 U/L Normal 0-41 [facility] Comment on above: Performed By: #### Jg RAZA, 93679-1 #### [facility] ([id number]) [address], [address] [place] [address] Bilirubin [Mass/Vol] 1.1 mg/dL Normal 0.3-1.2 [facility] Comment on above: Performed By: #### Jg RAZA, 35452-2 #### [facility] ([id number]) [address], [address] [place] [address] Calcium [Mass/Vol] 9.7 mg/dL Normal 8.5-10.5 [facility] Comment on above: Performed By: #### Jg RAZA, 14927-5 #### [facility] ([id number]) [address], [address] [place] [address] Chloride [Moles/Vol] 101 mmol/L Normal 98-109 [facility] Comment on above: Performed By: #### Jg RAZA, 96705-1 #### [facility] ([id number]) [address], [address] [place] [address] CO2 [Moles/Vol] 33 mmol/L High 22-32 [facility] Comment on above: Performed By: #### Jg RAZA, 98194-2 #### [facility] ([id number]) [address] [place] [address] Creatinine [Mass/Vol] 0.89 mg/dL Normal 0.40-1.00 [facility] Comment on above: Result Comment: METH OD TRACEABLE TO IDMS STANDARD Performed By: #### Jg RAZA, 21069-8 #### [facility] ([id number]) [address] [address] [place] [address] GFR/1.73 sq M.predicted among non-blacks MDRD (S/P/Bld) [Vol rate/Area] 68 mL/min/{1.73_m2} Normal >59 [facility] Comment on above: Result Comment: Reported eGFR is based on the CKD-EPI 2020 equation that does not use a race coefficient. Performed By: #### Jg RAZA 36436-7 #### [facility] ([id number]) [address], [address] [place] [address] Glucose [Mass/Vol] 99 mg/dL Normal 65-99 [facility] Comment on above: Performed By: #### Jg RAZA, 61413-7 #### [facility] ([id number]) [address], [address] [place] [address] Potassium [Moles/Vol] 4.0 mmol/L Normal 3.5-5.0 [facility] Comment on above: Performed By: #### Jg RAZA, 50605-7 #### [facility] ([id number]) [address] [place] [address] Protein [Mass/Vol] 7.1 g/dL Normal 6.0-8.0 [facility] Comment on above: Performed By: #### Jg RAZA, 47021-4 #### [facility] ([id number]) [address] [place] [address] Sodium [Moles/Vol] 141 mmol/L Normal 134-146 [facility] Comment on above: Performed By: #### Jg RAZA, 70776-0 #### [facility] ([id number]) [address] [place] [address] Urea nitrogen [Mass/Vol] 23 mg/dL Normal 5-27 [facility] Comment on above: Performed By: #### Jg RAZA, 28119-0 #### [facility] ([id number]) [address] [place] [address] Comprehensive metabolic pane young 12-05-2024 Albumin [Mass/Vol] 4.4 g/dL 3.2 - 5.3 g/dL [facility] ALP [Catalytic activity/Vol] 87 U/L 39 - 130 U/L [facility] ALT No additional P-5'-P [Catalytic activity/Vol] 20 U/L 0 - 31 U/L [facility] Anion gap [Moles/Vol] 7 mmol/L 5 - 15 mmol/L [facility] AST [Catalytic activity/Vol] 21 U/L 0 - 41 U/L [facility] Bilirubin [Mass/Vol] 1.1 mg/dL 0.3 - 1 .2 mg/dL [facility] Calcium [Mass/Vol] 9.7 mg/dL 8.5 - 10. 5 mg/dL [facility] Chloride [Moles/Vol] 101 mmol/L 98 - 10 9 mmol/L [facility] CO2 [Moles/Vol] 33 mmol/L High 22 - 32 mmol/L [facility] Creatinine [Mass/Vol] 0.89 mg/dL 0.40 - 1.00 mg/dL [facility] Comment on above: METHOD TRACEABLE TO [facility] STANDARD eGFR (CKD-EPI)non-race dependent 68 - PINF [facility] Comment on above: Reported eGFR is based on the CKD-EPI 2020 equation that does not use a race coefficient. Glucose [Mass/Vol] 99 mg/dL 65 - 99 mg/dL [facility] Interpretation and review of laboratory results Abnormal [facility] Potassium [Moles/Vol] 4 mmol/L 3.5 - 5.0 mmol/L [facility] Protein [Mass/Vol] 7.1 g/dL 6.0 - 8.0 g/dL [facility] Sodium [Moles/Vol] 141 mmol/L 134 - 146 mmol/L [facility] Urea nitrogen [Mass/Vol] 23 mg/dL 5 - 27 mg/dL [facility] Lipid 1996 panelon 5 Cholesterol [Mass/Vol] 154 mg/dL 150 - 200 mg/dL [facility] Cholesterol in HDL [Mass/Vol] 78 mg/dL 39 - PINF mg/dL [facility] Comment on above: HDL <40 mg/dL - High Risk HDL > or = 40mg/dL- Desirable HDL >60 mg/dL - Negative Risk Cholesterol in LDL [Mass/Vol] 61 mg/dL NINF - 130 mg/dL [facility] Comment on above: LDL <100 mg/dL - Desirable LDL >160 mg/dL - High Risk Cholesterol in VLDL [Mass/Vol] 15 mg/dL 0 - 30 mg/dL [facility] Cholesterol.total/Ch olesterol in HDL [Mass ratio] 2 {ratio} 1.0 - 5.0 [facility] Triglyceride [Mass/Vol] 75 mg/dL 27 - 150 mg/dL [facility] Cholesterol [Mass/Vol] 154 mg/dL Normal 150-200 [facility] Comment on above: Performed By: #### Jg RAZA, 96319-5 #### [facility] ([id number]) [facility] [address] [place] [address] Cholesterol in HDL [Mass/Vol] 78 mg/dL Normal >39 [facility] Comment on above: Result Comment: HDL <40 mg/dL - High Risk HDL > or = 40mg/dL- Desirable HDL >60 mg/dL - Negative Risk Performed By: #### Jg RAZA, 13515-4 #### [facility] ([id number]) [address] [place] [address] Cholesterol in LDL [Mass/Vol] 61 mg/dL Normal <130 [facility] Comment on above: Result Comment: LDL <100 mg/dL - Desirable LDL >160 mg/dL - High Risk Performed By: #### Jg RAZA, 06329-2 #### [facility] ([id number]) [address] [place] [address] Cholesterol in VLDL [Mass/Vol] 15 mg/dL Normal 0-30 [facility] Comment on above: Performed By: #### C RY, 05967-9 #### [facility] ([id number]) [address], [address] [place] [address] CHOLESTEROL:HDL 2.0 Normal 1.0-5.0 [facility] Comment on above: Performed By: #### C RY, 69807-2 #### [facility] ([id number]) [address], [address] [place] [address] Triglyceride [Mass/Vol] 75 mg/dL Normal 27-150 [facility] Comment on above: Performed By: #### C RY, 14637-9 #### [facility] ([id number]) [address] [place] [address] No Panel Informationon 12-05 [facility] Ambulatory Visit Summaryon 0 11-11-2024 Ambulatory Visit Summary Ambulatory Visit Summary LESVIA RAMOS I :1950 Visit Date:11/11/2024 Ambulatory Visit Instructions Your Diagnosis Kidney stones Stress incontinence Angiomyolipoma Tests Performed US Renal -- Results Pending -- XR Abdomen 1 View -- Results Pending -- Please visit your patient portal for your results or contact your primary care physician. Your Care Team Attending Physician - India SOLIS MD Primary Care Physician - RACHAEL CANELA DO This Is Your Medications List Contact prescribing physician if questions or concerns atorvastatin (atorvastatin 10 mg Tab) cholecalciferol (Vitamin D3) hydrochlorothiazide-spi ronolactone (hydrochlorothiazide-sp ironolactone 25 mg-25 mg Tab) latanoprost ophthalmic (latanoprost Opth 0.005% Jeanie) levothyroxine magnesium citrate (magnesium (as citrate) 83 mg oral tablet, chewable) metoprolol (metoprolol succinate 50 mg ER Tab) Procedures Performed CE - Cataract extraction (2021), AVR - Aortic valve replacement (10/30/2014), Colonoscopy. Discharge Vitals Temperature (Temporal Artery) 37 ???C Heart Rate (Peripheral) 68 Respiratory Rate 17 Blood Pressure 122/79 Height 162 cm Height 64 in Weight 63 kg Weight 138.891 lb BMI 24.01 What to do next Scheduled Follow-Up Appointments Monday 9:45 AM EDT With: India SOLIS MD Where: [facility] [address] [facility] [place] [address]- You Need to Schedule the Following Appointments Follow Up with India SOLIS MD, URL When: Where: [facility] [address], [facility] [place] [address] [phone] Medications What How Much When Instructions Unchanged atorvastatin (atorvastatin 10 mg Tab) Contact prescribing physician if questions or concerns Unchanged cholecalciferol (Vitamin D3) Contact prescribing physician if questions or concerns Unchanged hydrochlorothiazide-spi ronolactone (hydrochlorothiazide-sp ironolactone 25 mg-25 mg Tab) See instructions Contact prescribing physician if questions or concerns Unchanged latanoprost ophthalmic (latanoprost Opth 0.005% Jeanie) Contact prescribing physician if questions or concerns Unchanged levothyroxine Every day Contact prescribing physician if questions or concerns Unchanged magnesium citrate (magnesium (as citrate) 83 mg oral tablet, chewable) By Mouth 2 times a day Contact prescribing physician if questions or concerns Unchanged metoprolol (metoprolol succinate 50 mg ER Tab) See instructions 1 tab(s) Oral Daily Contact prescribing physician if questions or concerns Allergies heparin (HIT (Heparin induced thrombocytopenia) antibody) sulfa drugs (Rash) Problems Ongoing - Any problem that you are currently receiving treatment for. Abdominal pain Angiomyolipoma Gross hematuria History of renal stone Hydronephrosis with ureteral calculus Kidney stones Right flank pain Stress incontinence Historical - [...] you for choosing us for your care. Education Materials Kidney Stones Kidney stones are rock-like masses that form inside of the kidneys. Kidneys are organs that make pee (urine). A kidney stone may move into other parts of the urinary tract, including: ??? The tubes that connect the kidneys to the bladder (ureters). ??? The bladder. ??? The tube that carries urine out of the body (urethra). Kidney stones can cause very bad pain and can block the flow of pee. The stone usually leaves your body through your pee. A doctor may need to take out the stone. What are the causes? Kidney stones may be caused by: ??? Too much calcium in the body. This may be caused by too much parathyroid hormone in the blood. ??? Uric acid crystals in the bladder. The body makes uric acid when you eat certain foods. ??? Narrowing of one or both of the ureters. ??? A kidney blockage that you were born with. ??? Past surgery on the kidney or the ureters. What increases the risk? You are more likely to develop this condition if: ??? You have had a kidney stone in the past. ??? Other people in your family have had kidney stones. ??? You do not drink enough water. ??? You eat a diet that is high in protein, salt (sodium), or sugar. ??? You are very overweight (obese). What are the signs or symptoms? Symptoms of a kidney stone may include: ??? Pain in the side of the belly, right below the ribs. Pain usually spreads to the groin. ??? Needing to pee often or right away. ??? Pain when peeing. ??? Blood in your pee. ??? Feelin (more content not included)... Normal [facility] Urology Office/Clinic Noteon 11-11-2024 Urology Office/Clinic Note Urology Office/Clinic Note Chief Complaint Review CT scan HPI Staff 74yr old female here for f/u CT done 08/20/24. Previous Dx: history of renal stone, stress incontinence Dysuria: denies Incomplete bladder emptying: denies Hematuria: denies Frequency: denies Urgency: denies Nocturia: -12x Stream: good steady Leaking: denies Post void dripping: denies Wearing pads/ Depends: wears a pad for just in case Urge incontinence: denies Stress incontinence: with hard coughing and laughing Incontinence without Sensory Awareness: denies Abdominal pain: denies Flank pain: denies Sexual complaints: denies History of Present Illness Tests reviewed: reviewed UA, CT scan I have reviewed the previous health record information and history for this patient from Radha Bustillos NP. I have reviewed and verified the staff HPI to be accurate for this encounter. Review of Systems PHQ Score Initial Depression Screen Score: 0 SCORE ROS - Provider Constitutional: denies weight loss, denies hot flashes. Eyes: denies eye problems. Gastrointestinal: denies nausea, denies vomiting. Cardiovascular: denies chest pain or angina. Integumentary: no dryness Musculoskeletal: denies musculoskeletal symptoms. ENMT: denies otolaryngeal symptoms. Respiratory: no shortness of breath. Heme/Lymph: denies easy bleeding tendency, denies easy bruising tendency. Psychiatric: no confusion, no anxiety. Genitourinary: See HPI. Physical Exam Vitals & Measurements T: 37 ???C(Temporal Artery) HR: 68(Peripheral) RR: 17 BP: 122/79 HT: 64 in HT: 162 cm WT: 63 kg WT: 138.891 lb BMI: 24.01 General Appearance: alert , no acute distress, well nourished, well developed female. Assessment/Plan 1. Kidney stones (N20.0: Calculus of kidney) Pt had first and only stone episode 05/2020. Was able to pass on her own. KUB 11/24/23 [facility] - negative for stones KUB 06/17/24 [facility] - 6mm calcification projecting over LSP, renal vs splenic calcification. No calcifications noted on R. SANIYA 06/27/24 [facility] - Multiple bilateral parenchymal calcifications but no hydro. CT AP wo con 08/20/24 [facility] - Two 1mm nonobstructing stones in R kidney. Several nonobstructing stones in L kidney, largest 6mm. Personal review: Two tiny stones on the left in the renal calyx, 1-2mm and 5-6mm in size. Tiny stones on R in parenchyma. UA today negative for blood and infection. Has not had any stone episodes since first one in 2019. Reviewed imaging results. Advised pt upon personal review of CT scan the stone on the left appears to be at the junction of the parenchyma and the collecting system. Discussed US had suggested stones were in parenchyma. Educated pt this location does not require stones to be monitored/treated as they are not passable. Pt agrees to proceed with sx monitoring/surveillance with imaging. -F/u in 6 mos w/ KUB and SANIYA -Cont sx monitoring -Adequate hydration 2. Stress incontinence (N39.3: Stress incontinence (female) (male)) mild leaking with coughing/sneezing. Does wear a pad for protection, but rarely needs to change it. [1] -Cont pelvic floor exercises/Kegels -Cont sxs monitoring, pt to call if sxs arise [2] 3. Angiomyolipoma (D17.9: Benign lipomatous neoplasm, unspecified) CT AP wo con 08/20/24 [facility] - 5mm fatty lesion in R kidney, likely a small angiomyolipoma. Reviewed imaging results. Most AMLs are asymptomatic, although sporadic renal AMLs may cause retroperitoneal hemorrhage, hematuria, and impingement on normal tissue which can reduce renal function. Intervention is generally not necessary unless there is a suspicion of malignancy. In selected patients one can consider prophylactic intervention to prevent hemorrhage with renal AMLs larger than 4 cm in diameter, particularly those with high vascularity and/or an aneurysm measuring over 5 mm in diameter. Given pt is not symptomatic and small size, no indication for further management. Follow-up With When Contact Information IRMA RECINOS, India Yang, URL [facility] [address], [place] [address]- [phone] Additional Instructions: 6 mos w/ KUB and SANIYA Patient Education Kidney Stones, [id number] Nasrin Cool, personally scribed for Dr. Solis on 11/11/2024 13:11:53. . Documentation recorded by the scribeNasrin, accurately reflects the services(s) I performed and decisions made by me. Authenticated by Dr. Solis on 11/11/2024 13:15:04. Problem List/Past Medical History Ongoing Abdominal pain Angiomyolipoma Gross hematuria History of renal stone Hydronephrosis with ureteral calculus Kidney stones Right flank pain Stress incontinence Historical AF - Atrial fibrillation Arthritis Heart murmur Hypertension Procedure/Surgical History CE - Cataract extraction (2021), AVR - Aortic valve replacement (10/30/2014), Colonoscopy. Medications atorvastatin 10 mg Tab hydrochlorothiazide-spi rono (more content not included)... Normal [facility] Comment on above: Result Comment: Elec tronically Signed By: India SOLIS MD\.br\Date and Time Signed: 11/11/24 13:15 EST\.br\Electronically Co-Signed By: Nasrin Andersen\.br\Date and Time Co-Signed: 11/11/24 13:12 EST Shannon 09-11-2024 CNOV Office Visit (CARDLO ) LESVIA RAMOS I ([id number]) 1950 F Date Time Provider Department 09/11/24 3:00 PM ANDRES BOYD During your visit today, we recorded the following information about you: Pulse Blood pressure Weight 66/minute 122/68 57 kg Andres Boyd MD 09/11/2024 3:14 PM Signed [facility] SECTION OF REGIONAL CARDIOLOGY OUTPATIENT VISIT DATE Sep 11, 2024 OUTPATIENT VISIT TYPE ESTABLISHED PRIMARY CARE PHYSICIAN: Rachael Canela DO [address] [place] [address] CHIEF COMPLAINT: Follow-up Last visit with me: February 2024 HISTORY OF PRESENT ILLNESS: Ms. Ramos is a 73 year old female, seen in cardiology clinic today to for follow-up. Since last visit, Doing well, no specific CV symptoms. No further palpitations. Weight has been consistent between 124-126 lbs. Had Echocardiogram today Diet: Overall well balanced. Otherwise she [...] intermittent palpitations. Moderate TR PHYSICAL EXAMINATION: BP 122/68 Pulse 66 Wt 57 kg (125 lb 10.6 oz) BMI 21.57 kg/m? General: No acute distress, appears comfortable HEENT: no bruits, no JVD Pulmonary/chest: CTA b/L. CVS: Normal S1 and S2, Regular rhythm, normal rate, occasional ectopies. Soft 2/6 early systolic murmur, RUSB. Central and peripheral pulses 2+ B/L, no carotid or abdominal bruits. Abdomen: Soft, non-tender, non-distended. Bowel sounds normal Extremities: skin changes consistent with chronic venous insufficiency, wearing compressions, no edema today Neuro: AAOx4 Psych: Normal mood and affect EKG done in clinic and I personally reviewed today. Sinus rhythm, 66 bpm, APCs. Echocardiogram done today, August 2024, reviewed and discussed with patient. Normal LVEF, moderate TR, grade 1 diastolic dysfunction, normal functioning prosthetic aortic valve, normal RVSP Ambulatory monitor from December 2023 reviewed and [...] Heart murmur Hypertension Hypothyroidism Osteopenia Stroke (cerebrum) ([facility]) 12/07/2014 PAST SURGICAL HISTORY Procedure Laterality Date [...] HIT Sulfa (Sulfonamide * Rash CURRENT MEDICATIONS: metoprolol succinate ER (TOPROL XL) 50 mg 24 hr tablettake 1 tablet by mouth twice dailyDisp: 180 tabletRfl: 3 LATANOPROST OPHTHALMICUse 1 Drop in eyes once daily.Disp: Rfl: Magnesium 250 mg tabTake 250 mg by mouth once daily.Disp: Rfl: spironolactone-hctz 25/25 (ALDACTAZIDE) 25-25 mg per tabletTake 0.5 tablets by mouth once daily.Disp: 45 tabletRfl: 3 atorvastatin (LIPITOR) 10 mg tabletTake [...] 4,000 MG IN 24 HOUR PERIOD).Disp: Rfl: furosemide (LASIX) 20 mg tabletTake 1 tablet by mouth as directed. TAKE 20 MG DAILY NEEDED FOR WEIGHT INCREASE OF (more content not included)... Normal [facility] ECG COMPLETEon 09-11-2024 ECG COMPLETE Ventricular Rate : 6 6 BPM Atrial Rate : 60 BPM P-R Interval : 166 ms QRS Duration : 88 ms Q-T Interval : 400 ms QTC Calculation(Bazett) : 419 ms Calculated P Tron[place] : 69 degrees Calculated R [place]ron[place] : 74 degrees Calculated T [place]ron[place] : 55 degrees SINUS RHYTHM WITH APCS Septal Infarct , AGE UNDETERMINED ABNORMAL ECG Confirmed by AIMEE HOPE M.D. ([id number]) on 09/12/2024 12:14:14 PM NAME : LESVIA RAMOS PID : [id number] : 1950 Gender : Female Race : ORD : [id number] Procedure Date : Sep 11 2024 14:47:23 Edit Date : Sep 12 2024 12:14:20 Diagnosis: SINUS RHYTHM WITH APCS Septal Infarct , AGE UNDETERMINED ABNORMAL ECG Confirmed by AIMEE HOPE M.D. ([id number]) on 09/12/2024 12:14:14 PM Test Reason : Z95.2 S/P AVR (aortic valve replacement) and aortoplasty Location : 145 : [place] Overread By : AIMEE HOPE M.D. Edited By : AIMEE HOPE M.D. Referred By : ANDRES BYOD Acquired by : Roopa olson [facility] ECHOon 09-11-2024 Echocardiography Echocardiography Report: Transthoracic Echo [facility] Date of service: 09/11/2024 1:45:46 PM CONTENT SPECIALIST Ordering physician: ANDRES BOYD Indication: AVR Technologist: Earline Jean Baptiste RVT Interpreting physician: Andres Boyd MD PATIENT: Name: MRS. LESVIA RAMOS : 1950 Age: 73 years Gender: F History of valvular heart disease. Previous cardiovascular interventions: Aortic valve replacement (12/01/14) : C-E #23 Ascending aneurysm repair (12/01/14) Primary rhythm: sinus. Secondary rhythm: PVC. Height: 162.60 cm BSA: 1.61 m Weight: 57.30 kg BMI: 21.7 kg/m Heart rate 72 bpm Blood pressure 127/74 mmHg Technically difficult exam due to small rib spaces. Color Doppler was utilized to interrogate the cardiac valves assessed and spectral Doppler was utilized to determine the flow velocities and pressure gradients reported in this exam. MEASUREMENTS: Value Indexed Normal Max aortic dimension 3.5 cm Ao < 3.8 Left atrial volume 50 ml (biplane A-L) 31 ml/m Cher <= 34 LV ID (diastole) 3.6 cm (2D) 2.24 cm/m LV ID (systole) 1.7 cm (2D) 1.06 cm/m IVS, leaflet tips 1.0 cm (2D) Posterior wall thickness 1.1 cm (2D) Left ventricular mass 120 g (2D) 75 g/m LV stroke volume 30 ml (2D biplane) LV end diastolic volume 46 ml (2D biplane) 28.9 ml/m 29<=EDVi<62 LV end systolic volume 16 ml (2D biplane) 10.0 ml/m Ejection Fraction 66 % (2D biplane) EF > 54 FINDINGS: LEFT VENTRICLE The left ventricle is small. Left ventricular systolic function is normal. Grade I left ventricular diastolic dysfunction. Wall Motion: All scored segments are normal. RIGHT VENTRICLE The right ventricle is normal in size. Right ventricular systolic function is normal. RV systolic tissue Doppler velocity is 13.4 cm/s. Tricuspid annular displacement is 1.8 cm. Estimated right ventricular systolic pressure is 29 mmHg consistent with normal pulmonary artery pressures. Estimated right atrial pressure is 3 mmHg based on IVC assessment. LEFT ATRIUM The left atrial cavity is normal in size. RIGHT ATRIUM The right atrial cavity is dilated. Inferior Vena Cava: The inferior vena cava appears normal measuring 1.9 cm. The vessel decreases greater than 50 percent with inspiration. MITRAL VALVE There is moderate mitral annular calcification observed posterior. There is trace mitral valve regurgitation. The peak mitral valve gradient is 5 mmHg. The mean mitral valve gradient is 2 mmHg. The peak mitral E/A ratio is 0.55. TRICUSPID VALVE The tricuspid valve leaflets are structurally normal. There is moderate (2+) tricuspid valve regurgitation. The hepatic venous pattern showed blunted systolic flow. AORTIC VALVE Doris-Tee prosthetic valve size #23. There is no aortic valve regurgitation. The peak gradient is 20 mmHg (peak velocity = 222.0 cm/s). The mean gradient is 9 mmHg. The LVOT mean velocity is 63.0 cm/s. The aortic VTI is 52.3 cm. The mean velocity in the aortic valve is 114.4 cm/s. The dimensionless valve index is 0.41. PULMONIC VALVE The pulmonic valve was not seen or not interrogated. There is trace pulmonic valve regurgitation. AORTA The visualized aorta is normal in size. Measurements - Mid ascending aorta 3.0 cm. Distal ascending aorta 3.0 cm. Mid arch 3.5 cm. INTERATRIAL SEPTUM There is no evidence of intracardiac shunting as detected by Doppler. INTERVENTRICULAR SEPTUM There is no flow through the interventricular septum as detected by Doppler. PERICARDIUM There is no pericardial effusion. CONCLUSIONS: - Technically difficult exam due to small rib spaces. - Exam indication: AVR - The left ventricle is small. Left ventricular systolic function is normal. EF = 66 5% (2D biplane) Grade I left ventricular diastolic dysfunction. - The right ventricle is normal in size. Right ventricular systolic function is normal. - The right atrial cavity is dilated. - There is moderate (2+) tricuspid valve regurgitation. - Doris-Tee prosthetic aortic valve (size #23). There is no aortic valve regurgitation. The peak gradient is 20 mmHg, the mean gradient is 9 mmHg and the dimensionless valve index is 0.41. Prior Pk/Mn gradients of 17/9 mmHg. - Estimated right ventricular systolic pressure is 29 mmHg consistent with normal pulmonary artery pressures. Estimated right atrial pressure is 3 mmHg based on IVC assessment. - Exam was compared with the prior echocardiographic exam performed on 12/27/2023. TR is less severe, otherwise similar findings. * * * Final * * * True [employer] : [id number] Normal [facility] BASIC METABOLIC PANLon 08-08 Anion gap [Moles/Vol] 10 mmol/L Normal 5-15 [facility] Comment on above: Performed By: #### C BCA BMP, THYR #### [facility] ([id number]) [address], [address] [place] [address] Calcium [Mass/Vol] 9.8 mg/dL Normal 8.5-10.5 [facility] Comment on above: Performed By: #### C BCA, BMP, THYR #### [facility] ([id number]) [address], [address] [place] [address] Chloride [Moles/Vol] 101 mmol/L Normal 98-109 [facility] Comment on above: Performed By: #### C BCA, BMP, THYR #### [facility] ([id number]) [address], [address] [place] [address] CO2 [Moles/Vol] 30 mmol/L Normal 22-32 [facility] Comment on above: Performed By: #### C BCA, BMP, THYR #### [facility] ([id number]) [address], [address] [place] [address] Creatinine [Mass/Vol] 1.14 mg/dL High 0.40-1.00 [facility] Comment on above: Result Comment: METH OD TRACEABLE TO IDMS STANDARD Performed By: #### C JH BMP, THYR #### [facility] ([id number]) [address] [address] [place] [address] GFR/1.73 sq M.predicted among non-blacks MDRD (S/P/Bld) [Vol rate/Area] 51 mL/min/{1.73_m2} Low >59 [facility] Comment on above: Result Comment: Reported eGFR is based on the CKD-EPI 2020 equation that does not use a race coefficient. Performed By: #### C JH BMP, THYR #### [facility] ([id number]) [address] [address] Glucose [Mass/Vol] 125 mg/dL High 65-99 [facility] Comment on above: Performed By: #### C RUBEN PEÑALOZA, THYR #### [facility] ([id number]) [address] [address] Potassium [Moles/Vol] 4.9 mmol/L Normal 3.5-5.0 [facility] Comment on above: Performed By: #### C JH BMP, THYR #### [facility] ([id number]) [address] [address] Sodium [Moles/Vol] 141 mmol/L Normal 134-146 [facility] Comment on above: Performed By: #### C JH BMP, THYR #### [facility] ([id number]) [address] [address] Urea nitrogen [Mass/Vol] 24 mg/dL Normal 5-27 [facility] Comment on above: Performed By: #### C BCA BMP, THYR #### [facility] ([id number]) [address] [address] CBC AND AUTO DIFFon 10-10-20 24 ABSOLUTE BASOPHIL 0.0 X10E9/L Normal 0.0-0.2 [facility] Comment on above: Performed By: #### C RUBEN PEÑALOZA, THYR #### [facility] ([id number]) [address], [address] [place] [address] ABSOLUTE NEUTROPHIL 4.4 X10E9/L Normal 1.5-6.6 [facility] Comment on above: Performed By: #### C RUBEN PEÑALOZA, THYR #### [facility] ([id number]) [address] [address] [place] [address] Basophils/100 WBC (Bld) 0.8 % Normal [facility] Comment on above: Performed By: #### C RUBEN PEÑALOZA, THYR #### [facility] ([id number]) [address] [address] [place] [address] Eosinophils (Bld) [#/Vol] 0.0 10*3/uL Normal 0.0-0.4 [facility] Comment on above: Performed By: #### C RUBEN PEÑALOZA, THYR #### [facility] ([id number]) [address], [address] [place] [address] Eosinophils/100 WBC (Bld) 0.4 % Normal [facility] Comment on above: Performed By: #### C RUBEN PEÑALOZA, THYR #### [facility] ([id number]) [address], [address] [place] [address] Erythrocyte distribution width (RBC) [Ratio] 12.5 % Normal 11.5-15.0 [facility] Comment on above: Performed By: #### C RUBEN PEÑALOZA, THYR #### [facility] ([id number]) [address] [address] [place] [address] Hematocrit (Bld) [Volume fraction] 46.7 % Normal 35-47 [facility] Comment on above: Performed By: #### C JH BMP, THYR #### [facility] ([id number]) [address], [address] [place] [address] Hemoglobin (Bld) [Mass/Vol] 15.9 g/dL High 11.7-15.5 [facility] Comment on above: Performed By: #### C JH BMP, THYR #### [facility] ([id number]) [address], [facility] [address] [place] [address] Lymphocytes (Bld) [#/Vol] 1.2 10*3/uL Normal 1.0-3.5 [facility] Comment on above: Performed By: #### C JH BMP, THYR #### [facility] ([id number]) [address] [address] [place] [address] Lymphocytes/100 WBC (Bld) 20.2 % Normal [facility] Comment on above: Performed By: #### C JH, BMP, THYR #### [facility] ([id number]) [address], [address] [place] [address] MCH (RBC) [Entitic mass] 33.2 pg Normal 27-34 [facility] Comment on above: Performed By: #### C JH BMP, THYR #### [facility] ([id number]) [address] [address] [place] [address] MCHC (RBC) [Mass/Vol] 34.1 g/dL Normal 32-36 [facility] Comment on above: Performed By: #### C JH BMP, THYR #### [facility] ([id number]) [address], [address] [place] [address] MCV (RBC) [Entitic vol] 98 fL Normal 80-100 [facility] Comment on above: Performed By: #### C JH, BMP, THYR #### [facility] ([id number]) [address], [address] [place] [address] Monocytes (Bld) [#/Vol] 0.4 10*3/uL Normal 0-0.9 [facility] Comment on above: Performed By: #### C RUBEN PEÑALOZA, THYR #### [facility] ([id number]) [address], [address] [place] [address] Monocytes/100 WBC (Bld) 6.5 % Normal [facility] Comment on above: Performed By: #### C RUBEN PEÑALOZA, THYR #### [facility] ([id number]) [address], [facility] [address] [place] [address] Neutrophils/100 WBC (Bld) 72.1 % Normal [facility] Comment on above: Performed By: #### C JH BMP, THYR #### [facility] ([id number]) [address], [address] [place] [address] Platelet mean volume (Bld) [Entitic vol] 10.3 fL Normal 7-12 [facility] Comment on above: Performed By: #### C RUBEN PEÑALOZA, THYR #### [facility] ([id number]) [address], [address] [place] [address] Platelets (Bld) [#/Vol] 171 10*3/uL Normal 150-450 [facility] Comment on above: Performed By: #### C JH BMP, THYR #### [facility] ([id number]) [address], [address] [place] [address] RBC COUNT 4.79 X10E12/L Normal 3.80-5.20 [facility] Comment on above: Performed By: #### C JH BMP, THYR #### [facility] ([id number]) [address], [address] [place] [address] WBC (Bld) [#/Vol] 6.2 10*3/uL Normal 4.0-11.0 [facility] Comment on above: Performed By: #### C BCA, BMP, THYR #### [facility] ([id number]) [address], [address] [place] [address] THYROID PROFILEon 08-08-2024 Free T4 [Mass/Vol] 1.13 ng/dL Normal 0.61-1.60 [facility] Comment on above: Performed By: #### C BCA, BMP, THYR #### [facility] ([id number]) [address], [address] [place] [address] TSH 2.22 uIU/mL Normal 0.49-4.67 [facility] Comment on above: Performed By: #### C BCA, BMP, THYR #### [facility] ([id number]) [address], [address] [place] [address] Ambulatory Visit Summaryon 0 06-18-2024 Ambulatory Visit Summary Ambulatory Visit Summary LESVIA RAMOS I :1950 Visit Date:06/18/2024 Ambulatory Visit Instructions Your Diagnosis History of renal stone Stress incontinence Your Care Team Attending Physician - DAT [...] Aortic valve replacement (10/30/2014), Colonoscopy. Discharge Vitals Height 162 cm Height 64 in Weight 63.7 kg Weight 140.14 lb BMI 24.27 What to do next You Need to Schedule the Following Appointments Follow Up with DAT Bustillos APRN, Radha Guo, FAM, URL When: Comments: PRN Where: Medications What How Much When Instructions Unchanged atorvastatin (atorvastatin 10 mg Tab) Contact prescribing physician if questions or concerns Unchanged ergocalciferol (Vitamin D2 2000 intl units oral capsule) Every day Contact prescribing physician if questions or concerns Unchanged hydrochlorothiazide (hydrochlorothiazide 12.5 mg Cap) Contact prescribing physician if questions or concerns Unchanged latanoprost ophthalmic (latanoprost Opth 0.005% Jeanie) Contact prescribing physician if questions or concerns Unchanged levothyroxine Every day Contact prescribing physician if questions or concerns Unchanged metoprolol (metoprolol 25 mg ER Tab) Every day Contact prescribing physician if questions or concerns Allergies heparin (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 Education Materials Urinary Incontinence Urinary incontinence refers to a condition in which a person is unable to control where and when to pass urine. A person with this condition will urinate involuntarily. This means that the person urinates when he or she does not mean to. What are the causes? This condition may [...] stress, or post-traumatic stress disorder (PTSD). ? Spinal cord injury, nerve injury, or other neurological conditions. ? Pelvic organ prolapse. This happens in women when organs move out of place and into the vagina. This movement can prevent the bladder and urethra from working properly. What increases the risk? The following factors may make you more likely to develop this condition: ? Age. The older you are, the higher the risk. ? Obesity. ? Being physically inactive. ? and childbirth. ? Menopause. ? Diseases that affect the nerves or spinal cord. ? Long-term, or chronic, coughing. This can increase pressure on the bladder and pelvic floor muscles. What are the signs or symptoms? Symptoms may vary depending on the type of urinary incontinence you have. They include: ? A sudden urge to urinate, and passing urine involuntarily before you can get to a bathroom (urge incontinence). ? Suddenly passing urine when doing activities that force urine to pass, such as coughing, laughing, exercising, or sneezing (stress incontinence). ? Needing to urinate often but urinating only a small amount, or constantly dribbling urine (overflow incontinence). ? Urinating because you cannot get to the bathroom in time due to a physical disability, such as arthritis or injury, or due to a communication or thinking problem, such as Alzheimer's disease (functional incontinence). How is this diagnosed? This condition may be diagnosed based on: ? Your medical history. ? A physical exam. ? Tests, such as: ? Urine tests. ? X-rays of y (more content not included)... Normal [facility] Urology Office/Clinic Noteon 06-18-2024 Urology Office/Clinic Note Urology Office/Clinic Note Chief Complaint 6 month with KUB HPI Staff Prior PRW pt. 6mos f/up with KUB. KUB 11/24/23. Recent KUB ? DX: Hx of Renal Stone & Stress Incontinence. Dysuria: no Incomplete bladder emptying: no Hematuria: no Frequency: 2-3 hours Urgency: no Nocturia: 2x's Stream: good stream Post void dripping: no Wearing pads/ Depends: no Urge incontinence: no Stress incontinence: occasionally Incontinence without Sensory Awareness: no Abdominal pain: _ Flank pain: _ Sexual complaints: _ History of Present Illness Tests reviewed: reviewed UA, KUB I have reviewed the previous health record information and history for this patient from Radha Bustillos NP. I have reviewed and verified the staff HPI to be accurate for this encounter. Review of Systems PHQ Score Initial Depression Screen Score: 0 SCORE ROS - Provider Constitutional: denies weight loss, denies hot flashes. Eyes: denies eye problems. Gastrointestinal: denies nausea, denies vomiting. Cardiovascular: denies chest pain or angina. Integumentary: no dryness Musculoskeletal: denies musculoskeletal symptoms. ENMT: denies otolaryngeal symptoms. Respiratory: no shortness of breath. Heme/Lymph: denies easy bleeding tendency, denies easy bruising tendency. Psychiatric: no confusion, no anxiety. Genitourinary: See HPI. Physical Exam Vitals & Measurements HT: 64 in HT: 162 cm WT: 63.7 kg WT: 140.14 lb BMI: 24.27 General Appearance: alert , no acute distress, well nourished, well developed female. Assessment/Plan BBS 9 (8). 1. History of renal stone (Z87.442: Personal history of urinary calculi) Pt had first and only stone episode 05/2020. Was able to pass on her own. Only stone episode for pt. KUB 11/24/23 - negative for stones KUB 06/17/24 @ [facility] pending Report not available for today's visit - but not worrisome as pt has been stable and not having any recent episodes of stones since 2019. Denies flank pain, hematuria, or worsening urinary sxs since prior OV. -Will call pt with results. If KUB neg, pt agrees to f/u PRN. If new stones, can f/u 1 yr w/ repeat KUB. 2. Stress incontinence (N39.3: Stress incontinence (female) (male)) Admits to mild leaking with coughing/sneezing. Does wear a pad for protection, but rarely needs to change it. UA today negative for blood and infection. No urinary complaints, pt denies gross hematuria or dysuria. -Cont pelvic floor exercises/Kegels -Cont sxs monitoring, pt to call if sxs arise Follow-up With When Contact Information DAT Bustillos APRN, Radha Guo, FAM, URL Additional Instructions: PRN Patient Education Urinary Incontinence John Cool, personally scribed for DAT Mackey on 06/18/2024 09:14:26. . Documentation recorded by the ida Orozco accurately reflects the services(s) I performed and decisions made by me. Authenticated by Radha Bustillos APRN, FNP-C on 06/18/2024 09:22:08. Problem List/Past Medical History Ongoing Abdominal pain [...] Tobacco Use:. Household tobacco concerns: No. Yes, 06/18/2024 Family History Family history is unknown Immunizations Vaccine Date Status Comments influenza virus vaccine, inactivated 09/26/2023 Recorded influenza virus vaccine, inactivated 08/31/2022 Recorded SARS-CoV-2 (COVID-19) mRNAMUL.ORD![id number] 08/16/2022 Recorded SARSCoV2 mRNA(sejwxmqdq-cblj-pqm ros) vac 02/17/2022 Recorded influenza virus vaccine, [...] influenza virus vaccine, inactivated 01/11/2017 Recorded pneumococcal (more content not included)... Normal [facility] Comment on above: Result Comment: Elec tronically Signed By: DAT Bustillos APRN, Radha Guo\.br\Date and Time Signed: 06/18/24 09:22 EDT\.br\Electronically Co-Signed By: John Orozco\.br\Date and Time Co-Signed: 06/18/24 09:14 EDT Surgical Pathologyon 024 Surgical Pathology Normal [facility] Comment on above: Result Comment: [facility] [address] [place] [address] Surgical Pathology Consultation Patient Name:LESVIA RAMOS I.:1950 (Age: 73)Gender:FTaken:4Reported:05/31/2024hysician(s):Rachael Canela MD ([phone])Copy To: Rec. #:[id number]: #[id number] Final Pathologic Diagnosis 1. Ascending colon polyp: Hyperplastic polyp fragments. 2. Colon polyp at 50: Tubular adenoma. 3. Colon polyp at 45: Tubular adenoma. 4. Colon polyp at 25: Tubular adenoma. Report Electronically Signed Out 05/31/2024Minoo Schneider MD Interpretation performed at [facility], [address] [place] [address], License number: [id number]. Clinical History Screening. Gross Description 1. Received in formalin labeled, RICHARD, ascending polyp are 2 rucker delicate, focally erythematous soft tissue fragments, 0.3-0.6 cm in greatest dimension. The specimens are filtered and submitted in a single cassette. (1, ns, [id number], m7) TB 2. Received in formalin labeled, RICHARD, polyp at 50 is a pale-rucker delicate soft tissue fragment, 0.3 cm in greatest dimension. The specimen is filtered and submitted in a single cassette. (1, ns, [id number], m7) TB 3. Received in formalin labeled, RICHARD, polyp 45 is a pale-rucker delicate soft tissue fragment, 0.3 cm in greatest dimension. The specimens are filtered and submitted in a single cassette. (1, ns, [id number], m7) TB 4. Received in formalin labeled, RICHARD, polyp at 25 is a pale-rucker delicate soft tissue fragment, 0.5 cm in greatest dimension. The specimen is filtered and submitted in a single cassette. (1, ns, [id number], m7) TB tgb/05/29/2024SSI Specimen(s) Received 1: Ascending colon polyp 2: Colon polyp at 50 3: Colon polyp at 45 4: Colon polyp at 25 Fee Codes(s): 1; 12073 2; 23163 3; 93080 4; 88393 Basic metabolic 2000 panelon 12-27-2023 Anion gap [Moles/Vol] 11 mmol/L 9 - 18 mmol/L [facility] Calcium [Mass/Vol] 9.7 mg/dL 8.5 - 10. 2 mg/dL [facility] Chloride [Moles/Vol] 103 mmol/L 97 - 10 5 mmol/L [facility] CO2 [Moles/Vol] 29 mmol/L 22 - 30 mmol/L [facility] Creatinine [Mass/Vol] 1.09 mg/dL High 0.58 - 0.96 mg/dL [facility] Estimated Glomerular Filtration Rate 54 mL/min/1.73m Low >=60 mL/min/1.73m [facility] Glucose [Mass/Vol] 76 mg/dL 74 - 99 mg/dL [facility] Potassium [Moles/Vol] 4.3 mmol/L 3.7 - 5.1 mmol/L [facility] Sodium [Moles/Vol] 143 mmol/L 136 - 144 mmol/L [facility] Urea nitrogen [Mass/Vol] 24 mg/dL High 7 - 21 mg/dL [facility] ECG COMPLETEon 12-27-2023 Atrial Rate 70 BPM [facility] Calculated P [place] 70 degrees [facility] Calculated R [place] 84 degrees [facility] Calculated T [place] 66 degrees [facility] P-R Interval 172 ms [facility] QRS Duration 86 ms [facility] QT Interval 414 ms [facility] QTC Calculation (Bazett) 447 ms [facility] Ventricular Rate 70 BPM [facility] DEXA SCAN CENTRAL SKELETALon 12-26-2023 DEXA SCAN CENTRAL SKELETAL DEXA SCAN CENTRAL SKELETAL *ADDENDUM*The current National Osteoporosis Foundation guide recommends treating patients with FRAX ten year risk scores of greater than or equal to 3% for hip fracture or greater than or equal to 20% for major osteoporotic fracture, to reduce their fracture risk. Finalized by Kash Cunningham MD on 12/26/2023 3:04 PM Normal [facility] CBC panel Auto (Bld)on 06-27 Erythrocyte distribution width (RBC) [Ratio] 12.0 % 11.5 - 15.0 % [facility] Hematocrit (Bld) [Volume fraction] 46.3 % High 36.0 - 46.0 % [facility] Hemoglobin (Bld) [Mass/Vol] 15.2 g/dL 11.5 - 15.5 g/dL [facility] MCH (RBC) [Entitic mass] 32.3 pg 26.0 - 34.0 pg [facility] MCHC (RBC) [Mass/Vol] 32.8 g/dL 30.5 - 36.0 g/dL [facility] MCV (RBC) [Entitic vol] 98.5 fL 80.0 - 100.0 fL [facility] Nucleated RBC (Bld) [#/Vol] <0.01 k/uL [facility] Platelet mean volume (Bld) [Entitic vol] 11.4 fL 9.0 - 12.7 fL [facility] Platelets (Bld) [#/Vol] 144 10*3/uL Low 150 - 400 k/uL [facility] RBC (Bld) [#/Vol] 4.70 10*6/uL 3.90 - 5.2 0 m/uL [facility] WBC (Bld) [#/Vol] 6.26 10*3/uL 3.70 - 11. 00 k/uL [facility] XR SHOULDER GENERAL 3V OR MO RE AP/TRUE AP/OTHER LEFTon 05-30-2023 [facility] Basic metabolic 2000 panelon 12-27-2022 Anion gap [Moles/Vol] 7 mmol/L Low 9 - 18 mmol/L [facility] Calcium [Mass/Vol] 9.4 mg/dL 8.5 - 10. 2 mg/dL [facility] Chloride [Moles/Vol] 106 mmol/L High 97 - 10 5 mmol/L [facility] CO2 [Moles/Vol] 30 mmol/L 22 - 30 mmol/L [facility] Creatinine [Mass/Vol] 0.81 mg/dL 0.58 - 0.96 mg/dL [facility] Estimated Glomerular Filtration Rate 77 mL/min/1.73m >=60 mL/min/1.73m [facility] Glucose [Mass/Vol] 64 mg/dL Low 74 - 99 mg/dL [facility] Potassium [Moles/Vol] 4.7 mmol/L 3.7 - 5.1 mmol/L [facility] Sodium [Moles/Vol] 143 mmol/L 136 - 144 mmol/L [facility] Urea nitrogen [Mass/Vol] 18 mg/dL 7 - 21 mg/dL [facility] LIPID PANEL, NONFASTINGon Cholesterol [Mass/Vol] 148 mg/dL <200 mg/dL [facility] HDL Cholesterol, Nonfasting 69 mg/dL >39 mg/dL [facility] LDL Cholesterol, Nonfasting 67 mg/dL <100 mg/dL [facility] LDL/HDL Ratio, Nonfasting 0.97 mg/dL <2.54 mg/dL [facility] Non HDL Cholesterol, Nonfasting 79 mg/dL <130 mg/dL [facility] Total Chol/HDL Ratio, Nonfasting 2.14 mg/dL <5.10 mg/dL [facility] Triglycerides, Nonfasting 62 mg/dL <150 mg/dL [facility] VLDL Cholesterol, Nonfasting 12 mg/dL <30 mg/dL [facility] MAGNESIUM [facility] 12-27-2022 Magnesium [Mass/Vol] 2.2 mg/dL 1.7 - 2 .3 mg/dL [facility] TSH [facility] 12-27-2022 TSH Qn 0.577 m[IU]/L 0.270 - 4.200 mIU/L [facility] XR KUB 1 VIEWon 12-05-2022 XR KUB [...] MEERA HARTMANN Date: 2022-12-05 11:09 Normal [facility] COMPREHENSIVE METABOLIC PANE Young 11-09-2021 Albumin [Mass/Vol] 4.3 g/dL Normal 3.6-5.1 [facility] Comment on above: Performed By: #### 1 0231, 7600, 99407 #### [facility] of [address], [address] [place] [address] Salon Leader: Abraham Garcia MD Albumin/Globulin [Mass ratio] 1.8 {ratio} Normal 1.0-2.5 [facility] Comment on above: Performed By: #### 1 0231, 0, 21579 #### [facility] of [address], [address] [place] [address] Salon Leader: Abraham Garcia MD ALP [Catalytic activity/Vol] 84 U/L Normal 37-153 [facility] Comment on above: Performed By: #### 1 0231, 7599, 40824 #### [facility] of [address], [address] [place] [address] Salon Leader: Abraham Garcia MD ALT [Catalytic activity/Vol] 16 U/L Normal 6-29 [facility] Comment on above: Performed By: #### 1 0231, 7599, 67721 #### [facility] of [place] [address] Salon Leader: Abraham Garcia MD AST [Catalytic activity/Vol] 17 U/L Normal 10-35 [facility] Comment on above: Performed By: #### 1 0231, 7599, 83459 #### [facility] of [address], [address] [place] [address] Salon Leader: Abraham Garcia MD Bilirubin [Mass/Vol] 1.0 mg/dL Normal 0.2-1.2 [facility] Comment on above: Performed By: #### 1 0231, 0, 28117 #### [facility] of [place] [address] Salon Leader: Abraham Garcia MD BUN/CREATININE RATIO NOT APPLICABLE Normal 6-22 [facility] Comment on above: Performed By: #### 1 0231, 0, 04148 #### [facility] [address], [address] [place] [address] Salon Leader: Abraham Garcia MD Calcium [Mass/Vol] 9.3 mg/dL Normal 8.6-10.4 [facility] Comment on above: Performed By: #### 1 0231, 0, 00749 #### [facility] of [address], [address] [place] [address] Salon Leader: Abraham Garcia MD Chloride [Moles/Vol] 104 mmol/L Normal 98-110 [facility] Comment on above: Performed By: #### 1 023, 0, 57677 #### [facility] [address], [address] [place] [address] Salon Leader: Abraham Garcia MD CO2 [Moles/Vol] 31 mmol/L Normal 20-32 [facility] Comment on above: Performed By: #### 1 023, 7599, 45720 #### [facility] [address], [address] [place] [address] Salon Leader: Abraham Garcia MD Creatinine [Mass/Vol] 0.89 mg/dL Normal 0.60-0.93 [facility] Comment on above: Result Comment: For patients >49 years of age, the reference limit for Creatinine is approximately 13% higher for people identified as -Cypriot. Performed By: #### 1 023, 7599, 47433 #### [facility] [address], [address] [place] [address] Salon Leader: Abraham Garcia MD eGFR NON-AFR. GRENADIAN 65 mL/min/1.73m2 Normal > OR = 60 [facility] Comment on above: Performed By: #### 1 023, 7600, 61160 #### [facility] [address], [address] [place] [address] Salon Leader: Abraham Garcia MD GFR/1.73 sq M.predicted among blacks MDRD (S/P/Bld) [Vol rate/Area] 76 mL/min/{1.73_m2} Normal > OR = 60 [facility] Comment on above: Performed By: #### 1 0231, 0, 34636 #### [facility] of [address], [address] [place] [address] Salon Leader: Abraham Garcia MD Globulin (S) [Mass/Vol] 2.4 g/dL Normal 1.9-3.7 [facility] Comment on above: Performed By: #### 1 0231, 7599, 91745 #### [facility] of [place] [address] Salon Leader: Abraham Garcia MD Glucose [Mass/Vol] 90 mg/dL Normal 65-99 [facility] Comment on above: Result Comment: Fasting reference interval Performed By: #### 1 023, 7599, 84358 #### [facility] of [place] [address] Salon Leader: Abraham Garcia MD Potassium [Moles/Vol] 4.0 mmol/L Normal 3.5-5.3 [facility] Comment on above: Performed By: #### 1 023, 7599, 42572 #### [facility] [place] [address] Salon Leader: Abraham Garcia MD Protein [Mass/Vol] 6.7 g/dL Normal 6.1-8.1 [facility] Comment on above: Performed By: #### 1 023, 7599, 67713 #### [facility] of [place] [address] Salon Leader: Abraham Garcia MD Sodium [Moles/Vol] 140 mmol/L Normal 135-146 [facility] Comment on above: Performed By: #### 1 023, 7599, 49374 #### [facility] of [place] [address] Salon Leader: Abraham Garcia MD Urea nitrogen [Mass/Vol] 22 mg/dL Normal 7-25 [facility] Comment on above: Performed By: #### 1 0231, 7600, 57405 #### [facility] [address], [address] [place] [address] Salon Leader: Abraham Garcia MD LIPID PANEL, [facility] 10-30 Cholesterol [Mass/Vol] 165 mg/dL Normal <200 [facility] Comment on above: Order Comment: FASTI NG:YES FASTING: YES Performed By: #### 1 0231, 7600, 98311 #### [facility] [address], [address] [place] [address] Salon Leader: bAraham Garcia MD Cholesterol in HDL [Mass/Vol] 78 mg/dL Normal > OR = 50 [facility] Comment on above: Order Comment: FASTI NG:YES FASTING: YES Performed By: #### 1 0231, 7600, 05159 #### [facility] [address], [address] [place] [address] Salon Leader: Abraham Garcia MD Cholesterol in LDL [Mass/Vol] [...] equation in the estimation of LDL-C. Kai GOMEZ et al. ZANDER. 2013;310(19): 7864-5319 (http://education.Isonas.Zomazz/faq/LIT102) Performed By: #### 1 0231, 7600, 46956 #### [facility] [address], [address] [place] [address] Salon Leader: Abraham Garcia MD Cholesterol.total/Ch olesterol in HDL [Mass ratio] 2.1 {ratio} Normal <5.0 [facility] Comment on above: Order Comment: FASTI NG:YES FASTING: YES Performed By: #### 1 0231, 7600, 59598 #### [facility] [place] [address] Salon Leader: Abraham Garcia MD NON HDL CHOLESTEROL 87 mg/dL (calc) Normal <130 [facility] Comment on above: Order Comment: FASTI NG:YES FASTING: YES Result Comment: For patients with diabetes plus 1 major ASCVD risk factor, treating to a non-HDL-C goal of <100 mg/dL (LDL-C of <70 mg/dL) is considered a therapeutic option. Performed By: #### 1 0231, 7600, 73011 #### [facility] [place] [address] Salon Leader: Abraham Garcia MD Triglyceride [Mass/Vol] 61 mg/dL Normal <150 [facility] Comment on above: Order Comment: FASTI NG:YES FASTING: YES Performed By: #### 1 0231, 0, 10616 #### [facility] [place] [address] Salon Leader: Abraham Garcia MD TSH+FREE T4on 11-09-2021 Free T4 [Mass/Vol] 1.4 ng/dL Normal 0.8-1.8 [facility] Comment on above: Performed By: #### 1 0231, 0, 72026 #### [facility] [place] [address] Salon Leader: Abraham Garcia MD TSH Qn 1.19 m[IU]/L Normal 0.40-4.50 [facility] Comment on above: Performed By: #### 1 0231, 7600, 83100 #### [facility] [place] [address] Salon Leader: Abraham Garcia MD OBSOLETEon 07-21-2020 OBSOLETE Refill (AVPRAD) LESVIA RAMOS I ([id number]) 1950 F Date Time Provider Department 07/21/20 [...] replacement) 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] SVT (supraventricular tachycardia) ([facility]) [I47.1] Essential hypertension [I10] Order(s):metoprolol succinate ER [...] Encounter Status:Closed by ANDRES BOYD on 07/21/20 [facility] Large Joint Arthro/Inj: Mandeep dodson [facility] Vital Signs Date Time Vital Sign Value Performing Clinician Rebekah castano 03-25-2025 13:24-0400 Body mass index (BMI) [Ratio] 22.25 kg/m2 Nitza Mae APRN.KILNMAN Work Phone: [facility] 03-25-2025 13:24-0400 Body weight 58.8 kg Nitza Mae FORMING OPERATOR.KILNMAN Work Phone: [facility] 03-25-2025 13:24-0400 Diastolic blood pressure 70 mm[Hg] Genaroisa Mae FORMING OPERATOR.KILNMAN Work Phone: [facility] 03-25-2025 13:24-0400 Heart rate 76 /min Nitza Mae APRN.KILNMAN Work Phone: [facility] 03-25-2025 13:24-0400 Systolic blood pressure 131 mm[Hg] Genaroisa Mae FORMING OPERATOR.KILNMAN Work Phone: [facility] 12-05-2024 12:56-0500 Body height 161.3 cm Rachael Canela DO [facility] 12-05-2024 12:56-0500 Body mass index (BMI) [Ratio] 22.18 kg/m2 Rachael Canela DO Work Phone: [facility] [facility] 12-05-2024 12:56-0500 Body temperature 97 [degF] Rachael Canela DO [facility] 12-05-2024 12:56-0500 Body weight 57.7 kg Rachael Canela DO Work Phone: [facility] 12-05-2024 12:56-0500 Diastolic blood pressure 70 mm[Hg] Rachael Canela DO Work Phone: [facility] 12-05-2024 12:56-0500 Heart rate 88 /min Rachael Canela DO [facility] 12-05-2024 12:56-0500 SaO2% (BldA) [Mass fraction] 98 % Rachael Canela DO Work Phone[facility] 12-05-2024 12:56-0500 Systolic blood pressure 110 mm[Hg] Rachael Chairezs DO Work Phone: [facility] [facility] 12-03-2024 13:55-0500 Body height 161.3 cm Rachael Chairezs Work Phone[facility] 12-03-2024 13:55-0500 Body mass index (BMI) [Ratio] 22.32 kg/m2 Rachael Canela DO Work Phone[facility] 12-03-2024 13:55-0500 Body weight 58.06 kg Rachael Canela DO Work Phone: [facility] 12-03-2024 13:55-0500 Diastolic blood pressure 68 mm[Hg] Rachael Canela DO Work Phone: [facility] 12-03-2024 13:55-0500 Systolic blood pressure 117 mm[Hg] Rachael Canela DO Work Phone: [facility] 11-11-2024 12:28-0500 Blood Pressure Location [place] [facility] 11-11-2024 12:28-0500 Body temperature 98.6 [degF] [place] [facility] 11-11-2024 12:28-0500 Diastolic blood pressure 79 mm[Hg] [place] [facility] 11-11-2024 12:28-0500 Heart rate 68 /min [place] [facility] 11-11-2024 12:28-0500 Respiratory rate 17 /min [place] [facility] 11-11-2024 12:28-0500 Systolic blood pressure 122 mm[Hg] [place] [facility] 09-11-2024 14:45-0500 Body mass index (BMI) [Ratio] 21.57 kg/m2 Andres Boyd MD Work Phone: [facility] 09-11-2024 14:45-0500 Body weight 57 kg Andres Boyd MD Work Phone: [facility] 09-11-2024 14:45-0500 Diastolic blood pressure 68 mm[Hg] Andres Boyd MD Work Phone: [facility] 09-11-2024 14:45-0500 Heart rate 66 /min Andres Boyd MD Work Phone: [facility] 09-11-2024 14:45-0500 Systolic blood pressure 122 mm[Hg] Andres Boyd MD Work Phone: [facility] 08-08-2024 12:56-0400 Body height 162.6 cm Rachael Canela DO Work Phone: [facility] [facility] 08-08-2024 12:56-0400 Body mass index (BMI) [Ratio] 21.25 kg/m2 Rachael Canela DO Work Phone: [facility] 08-08-2024 12:56-0400 Body temperature 97 [degF] Rachael Canela DO Work Phone: [facility] 08-08-2024 12:56-0400 Body weight 56.16 kg Rachael Canela DO Work Phone: [facility] 08-08-2024 12:56-0400 Diastolic blood pressure 68 mm[Hg] Rachael Canela DO Work Phone: [facility] [employer] [facility] 08-08-2024 12:56-0400 Heart rate 89 /min Rachael Canela DO Work Phone: [facility] 08-08-2024 12:56-0400 SaO2% (BldA) [Mass fraction] 99 % Rachael Canela DO Work Phone: [facility] 08-08-2024 12:56-0400 Systolic blood pressure 102 mm[Hg] Rachael aCnela DO Work Phone: [facility] 02-28-2024 13:36-0400 Body mass index (BMI) [Ratio] 21.68 kg/m2 Andres Boyd MD Work Phone: [facility] 02-28-2024 13:36-0400 Body weight 57.3 kg Andres Boyd MD Work Phone: [facility] 02-28-2024 13:36-0400 Diastolic blood pressure 77 mm[Hg] Andres Boyd MD Work Phone: [facility] 02-28-2024 13:36-0400 Heart rate 64 /min Andres Boyd MD Work Phone: [facility] 02-28-2024 13:36-0400 Systolic blood pressure 120 mm[Hg] Andres Boyd MD Work Phone: [facility] 12-27-2023 09:39-0500 Body weight 59.88 kg Andres Boyd MD Work Phone: [facility] 12-27-2023 09:39-0500 Diastolic blood pressure 55 mm[Hg] Andres Boyd MD Work Phone: [facility] 12-27-2023 09:39-0500 Heart rate 69 /min Andres Boyd MD Work Phone: [facility] 12-27-2023 09:39-0500 Systolic blood pressure 114 mm[Hg] Andres Boyd MD Work Phone: [facility] 11-28-2023 11:00-0500 Blood Pressure Location Radha Orzech [facility] 11-28-2023 11:00-0500 Diastolic blood pressure 91 mm[Hg] Radha Orzech [facility] 11-28-2023 11:00-0500 Heart rate 72 /min Radha Orzech [facility] 11-28-2023 11:00-0500 Respiratory rate 16 /min Radha Orzech [facility] 11-28-2023 11:00-0500 Systolic blood pressure 141 mm[Hg] Radha Orzech [facility] 11-10-2023 09:25-0500 Body height 162.6 cm Rachael Canela DO Work Phone: [employer] [facility] 11-10-2023 09:25-0500 Body mass index (BMI) [Ratio] 22.52 kg/m2 Rachael Canela DO Work Phone: [employer] [facility] 11-10-2023 09:25-0500 Body temperature 97.9 [degF] Rachael Canela DO Work Phone: [facility] 11-10-2023 09:25-0500 Body weight 59.51 kg Rachael Canela DO Work Phone: [facility] 11-10-2023 09:25-0500 Diastolic blood pressure 76 mm[Hg] Rachael Canela DO Work Phone: [facility] 11-10-2023 09:25-0500 Heart rate 77 /min Rachael Canela DO Work Phone: [facility] 11-10-2023 09:25-0500 SaO2% (BldA) [Mass fraction] 99 % Rachael Canela DO Work Phone: [facility] 11-10-2023 09:25-0500 Systolic blood pressure 110 mm[Hg] Rachael Canela DO Work Phone: [facility] 06-27-2023 08:53-0400 Body weight 58.97 kg Andres Boyd MD Work Phone: [facility] 06-27-2023 08:53-0400 Diastolic blood pressure 82 mm[Hg] Andres Boyd MD Work Phone: [facility] 06-27-2023 08:53-0400 Heart rate 69 /min Andres Boyd MD Work Phone: [facility] 06-27-2023 08:53-0400 Systolic blood pressure 140 mm[Hg] Andres Boyd MD Work Phone: [facility] 12-27-2022 08:51-0500 Body weight 60.78 kg Lavisa Mae FORMING OPERATOR.KILNMAN Work Phone: [facility] 12-27-2022 08:51-0500 Diastolic blood pressure 84 mm[Hg] Lavisa Mae FORMING OPERATOR.KILNMAN Work Phone: [facility] 12-27-2022 08:51-0500 Heart rate 54 /min Lavisa Mae FORMING OPERATOR.KILNMAN Work Phone: [facility] 12-27-2022 08:51-0500 Systolic blood pressure 126 mm[Hg] Lavisa Mae FORMING OPERATOR.KILNMAN Work Phone: [facility] 12-09-2022 08:27-0500 Blood Pressure Location [place] SOLIS [facility] 12-09-2022 08:27-0500 Diastolic blood pressure 69 mm[Hg] [place] SOLIS [facility] 12-09-2022 08:27-0500 Heart rate 68 /min [place] SOLIS [facility] 12-09-2022 08:27-0500 Respiratory rate 16 /min [place] IRMA [facility] 12-09-2022 08:27-0500 Systolic blood pressure 117 mm[Hg] [place] SOLIS [facility] Encounters Encounter Date Encounter Type Care Provider Facility Start: 06-02-2025 ambulatory [place] Dui ty:[facility] [place] Start: 03-31-2025 End: 03-31-2025 Telephone encounter Fanny Medina Internal Medicine - Family Medicine Start: 03-26-2025 End: 03-26-2025 Follow-up encounter Nitza Mae APRN.CNP Work Phone: Cardiology Start: 03-25-2025 End: 03-25-2025 [facility] Start: 03-25-2025 End: 03-25-2025 Patient encounter procedure Nitza Mae APRN.CNP Work Phone: Cardiology Comment on above: Nonrheumatic tricusp id valve regurgitation (Primary Dx); Abnormal bruising; SVT (supraventricular tachycardia) (HCC); Chronic diastolic heart failure (HCC); Mixed hyperlipidemia; 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 Start: 12-22-2024 End: 12-23-2024 Refill Andres Boyd MD Work Phone: Cardiology Comment on above: Refill Request Start: 12-05-2024 End: 12-05-2024 ambulatory [facility] Start: 12-05-2024 End: 12-05-2024 Office outpatient visit 25 minutes Rachael Kaufman Rola GILL Work Phone: [facility] Comment on above: Essential hypertensi on (Primary Dx); Hyperlipidemia, unspecified hyperlipidemia type; Hypothyroidism, unspecified type; Sensorineural hearing loss (SNHL) of right ear with restricted hearing of left ear Start: 12-03-2024 End: 12-03-2024 Patient encounter procedure Rachael Canela Work Phone: [facility] Comment on above: Encounter for subseq uent annual wellness visit (AWV) in Medicare patient (Primary Dx); Chronic diastolic heart failure ([facility]); 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-induced thrombocytopenia) ([facility]); SVT (supraventricular tachycardia) ([facility]); Encounter for screening mammogram for malignant neoplasm of breast Start: 11-20-2024 End: 11-20-2024 Refill Rachael Kaufman Rola GILL Work Phone: [facility] Internal Medicine - Family Medicine Comment on above: Hyperlipidemia, unsp ecified Start: 11-11-2024 End: 11-11-2024 ambulatory [place] SOLIS Facility:[facility] Start: 11-11-2024 End: 11-11-2024 Patient encounter procedure [place] SOLIS [facility] Start: 11-01-2024 End: 11-05-2024 Telephone encounter Rachael Kaufman Rola GILL Work Phone: [facility] Start: 10-30-2024 End: 10-30-2024 Refill Rachael Kaufman Rola GILL Work Phone: [facility] Comment on above: Hypothyroidism, unsp ecified Start: 09-11-2024 End: 09-11-2024 Patient encounter procedure Andres Boyd MD Work Phone: Cardiology Comment on above: S/P AVR (aortic valv e replacement) 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 (Primary Dx); SVT (supraventricular tachycardia) (HCC); Nonrheumatic tricuspid valve regurgitation; Chronic diastolic heart failure (HCC); Mixed hyperlipidemia Start: 09-11-2024 End: 09-11-2024 ambulatory ANDRES NEVAGREGCHARU Facility:[facility] Start: 08-30-2024 End: 08-30-2024 Bamboo flowsheet Vandana Rodriguez PT [facility] Start: 08-30-2024 End: 08-30-2024 Bamboo flowsheet Vandana Rodriguez PT [facility] Start: 08-30-2024 End: 08-30-2024 ambulatory Vandana Rodriguez PT [facility] Comment on above: Sciatica, left side (Primary Dx) Start: 08-27-2024 End: 08-28-2024 ambulatory Rosalio Aimee [employer] [facility] Comment on above: Sciatica, left side (Primary Dx) Start: 08-27-2024 End: 08-27-2024 Bamboo flowsheet Rosalio Yu [employer] [facility] Start: 08-27-2024 End: 08-27-2024 Bamboo flowsheet Rosalio Yu [employer] [facility] Start: 08-23-2024 End: 08-23-2024 Bamboo flowsheet Vandana Rodriguez PT [facility] Start: 08-23-2024 End: 08-23-2024 Bamboo flowsheet Vandana Rodriguez PT [facility] Start: 08-23-2024 End: 08-23-2024 Refill Cheyanne Franz APRN.KILNMAN Work Phone: Cardiology Comment on above: Refill Request Start: 08-23-2024 End: 08-23-2024 ambulatory VANDANA RODRIGUEZ Not Available Start: 08-21-2024 End: 08-21-2024 Bamboo flowsheet Vandana Rodriguez PT [facility] Start: 08-21-2024 End: 08-21-2024 Bamboo flowsheet Vandana Rodriguez PT [facility] Start: 08-21-2024 End: 08-21-2024 ambulatory Vandana Rodriguez PT [facility] Comment on above: Sciatica, left side (Primary Dx); Acute pain of left shoulder Start: 08-16-2024 End: 08-16-2024 Refill Rachael Canela Work Phone: [facility] Comment on above: Hyperlipidemia, unsp ecified Start: 08-15-2024 End: 08-15-2024 Bamboo flowsheet Vandana Rodriguez PT [facility] Start: 08-15-2024 End: 08-15-2024 Bamboo flowsheet Vandana Rodriguez PT [facility] Start: 08-15-2024 End: 08-15-2024 ambulatory Vandana Rodriguez PT [facility] Comment on above: Sciatica, left side (Primary Dx) Start: 08-08-2024 End: 08-08-2024 ambulatory [facility] Start: 08-08-2024 End: 08-08-2024 Office outpatient visit 25 minutes Rachael Canela DO Work Phone: [facility] Comment on above: Petechiae or ecchymo ses (Primary Dx); Sciatica of left side; Hypothyroidism, unspecified type Start: 08-08-2024 End: 08-08-2024 ambulatory [facility] Start: 06-18-2024 End: 06-18-2024 ambulatory Radha Bustillos Facility:[facility] Start: 06-18-2024 End: 06-18-2024 Patient encounter procedure Radha Bustillos [facility] Start: 05-29-2024 End: 05-30-2024 Evaluation and management of inpatient [facility] Start: 05-28-2024 End: 05-28-2024 ambulatory [facility] Pat Phone Call Provider [facility] Pre Ad[facility] Start: 05-28-2024 End: 05-28-2024 ambulatory [facility] Start: 05-13-2024 End: 05-13-2024 Refill Rachael Can[facility] DO [facility] Comment on above: Hyperlipidemia, unsp ecified Start: 05-04-2024 End: 05-05-2024 Refill Rachael Canela DO [facility]: [facility] Comment on above: Hypothyroidism, unsp ecified Start: 02-28-2024 End: 02-28-2024 Patient encounter procedure Andres Boyd MD Work Phone: Cardiology Comment on above: S/P AVR (aortic valv e replacement) and aortoplasty (Primary Dx); SVT (supraventricular tachycardia) (HCC); Chronic diastolic heart failure (HCC); PVC (premature ventricular contraction); Nonrheumatic tricuspid valve regurgitation Start: 12-28-2023 Telephone encounter Andres castle MD Work Phone: [address] [place] [address] Comment on above: Medication Problem medication questions / cost issue Start: 12-27-2023 End: 12-27-2023 Patient encounter procedure Andres Boyd MD Work Phone: Cardiology Comment on above: S/P AVR (aortic valv e replacement) and aortoplasty (Primary Dx); SVT (supraventricular tachycardia) (HCC); Nonrheumatic tricuspid valve regurgitation; PVC (premature ventricular contraction); Acute on chronic diastolic heart failure (HCC) Start: 12-21-2023 End: 12-21-2023 ambulatory RACHAEL CANELA [facility] Start: 12-20-2023 End: 12-20-2023 ambulatory DO Rachael Canela Work Phone: [facility] Work Phone: Start: 12-20-2023 End: 12-20-2023 Patient encounter procedure DO Rachael Caenla Work Phone: [facility] Work Phone: Start: 11-28-2023 End: 11-28-2023 Patient encounter procedure Rachael Canela DO Work Phone: [facility] Comment on above: Encounter for subseq uent annual wellness visit (AWV) in Medicare patient (Primary Dx); Colon cancer screening; Encounter for screening mammogram for malignant neoplasm of breast; Postmenopausal status; Screening for osteoporosis Start: 11-28-2023 End: 11-28-2023 ambulatory [facility] Start: 11-28-2023 End: 11-28-2023 Patient encounter procedure Radha Bustillos [facility] Start: 11-10-2023 End: 11-10-2023 Office outpatient visit 25 minutes Rachael Canela DO Work Phone: [facility] Comment on above: Essential hypertensi on (Primary Dx); Hyperlipidemia, unspecified hyperlipidemia type; Sciatica of left side; 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-induced thrombocytopenia) ([facility]) Start: 11-10-2023 End: 11-10-2023 ambulatory [facility] Start: 11-06-2023 Refill Rachael Costello Work Phone: [facility] Comment on above: Hyperlipidemia, unsp ecified Start: 10-24-2023 Refill Rachael Costello Work Phone: [facility] Comment on above: Hypothyroidism, unsp ecified Start: 08-28-2023 Refill Andres marin MD Work Phone: Cardiology Comment on above: Refill Request Start: 06-27-2023 End: 06-27-2023 Patient encounter procedure Andres Boyd MD Work Phone: Cardiology Comment on above: S/P AVR (aortic valv e replacement) 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 (Primary Dx); APC (atrial premature contractions); SVT (supraventricular tachycardia) ([facility]); Primary hypertension; Venous (peripheral) insufficiency Start: 05-30-2023 End: 05-30-2023 Patient encounter procedure Nicholas Hines DO Work Phone: Orthopaedics Comment on above: Impingement syndrome of left shoulder (Primary Dx) Start: 05-30-2023 End: 05-30-2023 Subsequent hospital visit by physician Gregory Guerin [facility] Rej Work Phone: Radiology Comment on above: Pain [R52] Start: 04-28-2023 ambulatory Andres marin MD Work Phone: Cardiology Comment on above: new medication Start: 12-27-2022 End: 12-27-2022 Patient encounter procedure Nitza Mae FORMING OPERATOR.KILNMAN Work Phone: Cardiology Comment on above: S/P AVR (aortic valv e replacement) and aortoplasty (Primary Dx); SVT (supraventricular tachycardia) (HCC); APC (atrial premature contractions); Primary hypertension; Patchy loss of hair; Mixed hyperlipidemia; Typical atrial flutter (HCC) Start: 12-17-2022 Refill Cheyanne nielosn APRN.KILNMAN Work Phone: Cardiology Comment on above: Refill Request Start: 12-09-2022 End: 12-09-2022 Patient encounter procedure [place] SOLIS [facility] Start: 12-05-2022 End: 12-06-[address] [place] SOLIS Facility:[facility] Start: 09-12-2022 End: 09-12-2022 ambulatory DO Rachael Canela Work Phone: [facility] Work Phone: Start: 09-12-2022 End: 09-12-2022 Patient encounter procedure DO Rachael Canela Work Phone: [facility] Start: 07-02-2022 Refill Cheyanne nielson APRN.KILNMAN Work Phone: Cardiology Comment on above: Refill Request Start: 06-02-2022 Refill Andres marin MD Work Phone: Cardiology Comment on above: Refill Request Start: 11-19-2014 End: 12-02-2014 Patient encounter status Andres Boyd MD Work Phone: [facility] Work Phone: Procedures Date Procedure Procedure Detail Performing Clinician Start: 03-25-2025 Ecg routine ecg w/le ast 12 lds i&r only Nitza Mae APRN.KILNMAN Work Phone: Start: 12-05-2024 Adult depression scr eening assessment Rachael Canela DO Work Phone: Start: 12-05-2024 Lipid 1996 panel - S migel or Plasma Nizta Mae APRN.KILNMAN Work Phone: Start: 12-03-2024 Adult depression scr eening assessment Rachael Canela DO Work Phone: Start: 09-11-2024 Ecg routine ecg w/le ast 12 lds i&r only [facility] Provider Start: 08-08-2024 Adult depression scr eening assessment Rachael Canela DO Work Phone: Start: 05-29-2024 Colonoscopy Vandana Rodriguez PT Start: 12-27-2023 Ecg routine ecg w/le ast 12 lds i&r only Andres Boyd MD Work Phone: Start: 12-20-2023 End: 12-20-2023 Screening mammography of bilateral breasts DO Rachael Mihaelakennedy Work Phone: Start: 11-28-2023 Adult depression scr eening assessment Rachael Canela DO Work Phone: Start: 11-10-2023 Adult depression scr eening assessment Rachael Canela DO Work Phone: Start: 09-27-2023 Adult depression scr eening assessment Rachael Canela DO Work Phone: Start: 06-27-2023 Ecg routine ecg w/le ast 12 lds i&r only [facility] Provider Start: 05-30-2023 Arthrocentesis aspir &/inj major jt/bursa w/o us Nicholas Hines DO Work Phone: Start: 05-30-2023 Radex shoulder compl ete minimum 2 views Nicholas Hines DO Work Phone: Start: 12-27-2022 Lipid 1996 panel - S migel or Plasma Andres Boyd MD Work Phone: Start: 09-12-2022 Screening mammograph y of bilateral breasts DO Rachael Canela Work Phone: Start: 10-30-2021 Extraction of cataract Indiaangel luis SOLIS Start: 12-17-2018 Adult depression scr eening assessment Andres Boyd MD Work Phone: Start: 10-30-2014 Replacement of aortic valve [place] SOLIS Colonoscopy [place] SOLIS Plan of Treatment Date Care Activity Detail Author Start: 05-29-2034 Screening for malign ant neoplasm of colon [facility] Start: 12-05-2029 Lipid panel Lipid Screening [facility] Start: 03-25-2028 Diabetes Screening [facility] Start: 12-27-2027 Lipid 1996 panel - S migel or Plasma Lipid Screening [facility] Start: 12-27-2027 Lipid panel Lipid Screening [facility] Start: 12-27-2027 LIPID SCREEN LIPID SCREEN [facility] Start: 12-05-2027 Diabetes Screening [facility] Start: 08-08-2027 Diabetes Screening [facility] Start: 07-17-2027 DTaP,Tdap and Td Vac cines (2 - Td or Tdap) DTaP,Tdap and Td Vaccines (2 - Td or Tdap) [facility] Start: 07-17-2027 Urine microalbumin profile DTa P,Tdap,Td Vaccine (2 - Td or Tdap) [facility] Start: 01-16-2027 Diabetes Screening Diabetes Screenin g [facility] Start: 12-27-2026 Diabetes Screening [facility] Start: 06-29-2026 LIPID SCREEN LIPID SCREEN [facility] Start: 06-27-2026 Diabetes Screening Diabetes Screenin g [facility] Start: 03-17-2026 Screening for malign ant neoplasm of breast Mammogram Screening [facility] Start: 12-27-2025 DIABETES SCREEN DIABETES SCREEN [facility] Start: 12-05-2025 Adult BMI Screening Adult BMI Screen ing [facility] Start: 12-05-2025 Depression Screening Depression Scre ening [facility] Start: 12-05-2025 Fall Risk Screening Fall Risk Screen ing [facility] Start: 12-05-2025 Tobacco Screening Tobacco Screening [facility] Start: 12-04-2025 End: 12-04-2025 Patient encounter procedure 12/04/2025 11:00 AM EST Office Visit [facility] [address] [place] [address] [facility] Start: 12-03-2025 Adult BMI Screening Adult BMI Screen ing [facility] Start: 12-03-2025 Depression Screening Depression Scre ening [facility] Start: 12-03-2025 Fall Risk Screening Fall Risk Screen ing [facility] Start: 12-03-2025 Medicare Annual Well ness Visit Medicare Annual Wellness Visit [facility] Start: 09-17-2025 End: 09-17-2025 Patient encounter procedure Cardiology Comment on above: Nonrheumatic tricusp id valve regurgitation [I36.1] 6 month follow up Start: 09-12-2025 End: 09-12-2025 Patient encounter procedure 09/12/2025 1:30 PM EST Office Visit Cardiology [address] [place] [address] Andres Boyd MD [address] [place] [address] 1 yr with ut Cardiology Comment on above: 1 yr with me Start: 09-11-2025 BP Controlled (<130/80) BP Controlle d (<130/80) [facility] Start: 09-11-2025 End: 03-25-2026 Echocardiography ECHO Cardiology Routine Nonrheumatic tricuspid valve regurgitation Expected: 09/11/2025, Expires: 03/25/2026 [facility] Work Phone: Comment on above: Expected: 09/11/2025 , Expires: 03/25/2026 Start: 08-08-2025 Adult BMI Screening Adult BMI Screen ing [facility] Start: 08-08-2025 Depression Screening Depression Scre ening [facility] Start: 08-08-2025 Fall Risk Screening Fall Risk Screen ing [facility] Start: 08-08-2025 Tobacco Screening Tobacco Screening [facility] Start: 06-30-2025 Influenza vaccination Influenza Vacc ine [facility] Start: 05-29-2025 Adult BMI Screening Adult BMI Screen ing [facility] Start: 05-29-2025 Tobacco Screening Tobacco Screening [facility] Start: 03-25-2025 End: 06-24-2025 Basic metabolic 2000 panel - Serum or Plasma [facility] Comment on above: Expected: 03/25/2025 , Expires: 06/24/2025 Start: 03-25-2025 End: 06-24-2025 Magnesium [Mass/volume] in Serum or Plasma [facility] Comment on above: Expected: 03/25/2025 , Expires: 06/24/2025 Start: 03-25-2025 End: 03-25-2025 Patient encounter procedure 03/25/2025 1:30 PM EDT Office Visit Cardiology [address] [place], [place] [id number] Nitza Mae, FORMING OPERATOR.KILNMAN [address] [place], [place] [id number] Return in about 6 months (around 03/11/2025). Cardiology Comment on above: Return in about 6 mo nths (around 03/11/2025). Start: 02-27-2025 BP Controlled (<130/80) BP Controlle d (<130/80) [facility] Start: 02-08-2025 Covid-19 Vaccine ( season) Covid-19 Vaccine ( season) [facility] Start: 12-27-2024 BP Controlled (<130/80) BP Controlle d (<130/80) [facility] Start: 12-20-2024 Screening for malign ant neoplasm of breast [facility] Start: 12-05-2024 End: 12-05-2025 DBT Breast - bilateral screening Mammography screening bilateral with CAD Imaging Routine Encounter for screening mammogram for malignant neoplasm of breast Expected: 12/05/2024, Expires: 12/05/2025 [facility] Work Phone: Comment on above: Expected: 12/05/2024 , Expires: 12/05/2025 Start: 12-05-2024 End: 12-05-2024 Patient encounter procedure 12/05/2024 1:00 PM EST [facility] [address] [place] [address] Rachael Canela DO [address] [facility] [place] [address] [facility] Start: 12-03-2024 End: 12-03-2024 Patient encounter procedure 12/03/2024 2:00 PM EST [facility] [address] [place] [address] [facility] Start: 11-28-2024 Depression Screening Depression Scre ening [facility] Start: 11-28-2024 Fall Risk Screening Fall Risk Screen ing [facility] Start: 11-28-2024 Medicare Annual Well ness Visit Medicare Annual Wellness Visit [facility] Start: 11-10-2024 Adult BMI Screening Adult BMI Screen ing [facility] Start: 11-10-2024 Depression Screening Depression Scre ening [facility] Start: 11-10-2024 Fall Risk Screening Fall Risk Screen ing [facility] Start: 11-10-2024 Tobacco Screening Tobacco Screening [facility] Start: 10-30-2024 Advance Directive Discussion Advance Directive Discussion [facility] Start: 09-27-2024 Adult BMI Screening Adult BMI Screen ing [facility] Start: 09-27-2024 Depression Screening Depression Scre ening [facility] Start: 09-27-2024 Fall Risk Screening Fall Risk Screen ing [facility] Start: 09-27-2024 Tobacco Screening Tobacco Screening [facility] Start: 09-11-2024 End: 09-11-2024 Patient encounter procedure [...] heart failure (HCC) Expected: 08/30/2024, Expires: 11/29/2024 [facility] Work Phone: Comment on above: Expected: 08/30/2024 , Expires: 11/29/2024 Start: 08-30-2024 End: 02-27-2025 Echocardiography ECHO Cardiology Routine S/P AVR (aortic valve replacement) and aortoplasty SVT (supraventricular tachycardia) (HCC) Chronic diastolic heart failure (HCC) PVC (premature ventricular contraction) Expected: 08/30/2024, Expires: 02/27/2025 [facility] Comment on above: Expected: 08/30/2024 , Expires: 02/27/2025 Start: 08-30-2024 End: 11-29-2024 Natriuretic peptide.B prohormone N-Terminal [Mass/volume] in Serum or Plasma NT PRO BNP Lab Routine S/P AVR (aortic valve replacement) and aortoplasty SVT (supraventricular tachycardia) (HCC) Chronic diastolic heart failure (HCC) Expected: 08/30/2024, Expires: 11/29/2024 [facility] Comment on above: Expected: 08/30/2024 , Expires: 11/29/2024 Start: 08-30-2024 End: 08-30-2024 ambulatory 08/30/2024 7:00 AM EDT Treatment [facility] [address] [facility] [address] [place] [id number] Vandana Rodriguez, PT [facility] Start: 08-27-2024 End: 08-27-2024 ambulatory [facility] Comment on above: Arrived Start: 08-23-2024 End: 08-23-2024 ambulatory [facility] Comment on above: Sciatica, left side (Primary Dx) Start: 08-21-2024 End: 08-21-2024 ambulatory [facility] Comment on above: Sciatica, left side (Primary Dx); Acute pain of left shoulder Start: 06-30-2024 COVID-19 Vaccine ( season) COVID-19 Vaccine ( season) [facility] Start: 06-30-2024 Covid-19 Vaccine ( season) Covid-19 Vaccine () [facility] Start: 06-30-2024 Influenza vaccination N [facility] Start: 06-29-2024 DIABETES SCREEN DIABETES SCREEN [facility] Start: 05-29-2024 End: 05-29-2024 Admission to same day surgery center 05/29/2024 10:00 AM EDT - 05/29/2024 11:00 AM EDT Surgery [facility] [address] [place] [id number] Rachael Canela, DO [address] [place] [address] COLONOSCOPY DIAGNOSTIC / SCREENING [04195 (CPT )] [facility] Comment on above: COLONOSCOPY DIAGNOST IC / SCREENING [13449 (CPT )] Start: 05-29-2024 End: 05-29-2024 Colonoscopy flx dx w/collj spec when pfrmd COLONOSCOPY DIAGNOSTIC / SCREENING Screen for colon cancer 05/29/2024 10:00 AM EDT [facility] Start: 05-29-2024 Subsequent hospital visit by physician 05/29/2024 10:00 AM EDT Hospital Encounter [facility] [address] [place] [phone] Rachael Canela, DO [address] [place] [address] [facility] [place] [facility] Start: 05-28-2024 End: 05-28-2024 ambulatory 05/28/2024 3:50 PM EDT Support Visit [facility] [address] [place] [phone] [facility] Start: 01-17-2024 End: 04-17-2024 Basic metabolic 2000 panel - Serum or Plasma BASIC METABOLIC PNL Lab Routine Expected: 01/17/2024, Expires: 04/17/2024 [facility] Work Phone: Comment on above: Expected: 01/17/2024 , Expires: 04/17/2024 Start: 01-13-2024 Covid-19 Vaccine () Covid-19 Vaccine () [facility] Start: 12-28-2023 End: 06-27-2024 Echocardiography ECHO Cardiology Routine SVT (supraventricular tachycardia) (HCC) Expected: 12/28/2023, Expires: 06/27/2024 [facility] Work Phone: Comment on above: Expected: 12/28/2023 , Expires: 06/27/2024 Start: 11-28-2023 End: 11-28-2024 DBT Breast - bilateral screening Mammography screening bilateral with CAD Imaging Routine Encounter for screening mammogram for malignant neoplasm of breast Expected: 11/28/2023, Expires: 11/28/2024 [facility] Comment on above: Expected: 11/28/2023 , Expires: 11/28/2024 Start: 11-28-2023 End: 11-28-2024 DXA Skeletal system Views for bone density Dexa scan central skeletal Imaging Routine Postmenopausal status Screening for osteoporosis Expected: 11/28/2023, Expires: 11/28/2024 [facility] Comment on above: Expected: 11/28/2023 , Expires: 11/28/2024 Start: 11-23-2023 End: 11-23-2023 Patient encounter procedure 11/23/2023 11:00 AM EST [facility] [address] [place] [address] [facility] Internal Medicine - Family [facility] Start: 11-10-2023 End: 11-10-2023 Patient encounter procedure 11/10/2023 9:20 AM EST [facility] [address] [place] [address] Rachael Canela [address] [facility] [place] [address] [facility] Family [facility] Start: 10-30-2023 Advance Directive Discussion Advance Directive Discussion [facility] Start: 10-30-2023 Behavioral Health Screening Behavioral Health Screening [facility] Start: 10-30-2023 Depression Assessment Depression Ass essment [facility] Start: 06-30-2023 Covid-19 Vaccine ( season) Covid-19 Vaccine () [facility] Start: 06-30-2023 Influenza vaccination C [facility] Start: 06-27-2023 End: 08-27-2023 Comprehensive metabolic 2000 panel - Serum or Plasma [facility] Work Phone: Comment on above: Expected: 06/27/2023 , Expires: 08/27/2023 Start: 12-17-2022 COVID-19 VACCINE (6 - Pfizer series) COVID-19 VACCINE (6 - Pfizer series) [facility] Start: 10-30-2022 ADVANCE DIRECTIVE DISCUSSION ADVANCE DIRECTIVE DISCUSSION [facility] Start: 10-30-2022 DEPRESSION ASSESSMENT DEPRESSION ASS ESSMENT [facility] Start: 06-30-2022 Influenza vaccination INFLUENZA (#1) [facility] Start: 04-14-2022 COVID-19 VACCINE (5 - Booster for Pfizer series) COVID-19 VACCINE (5 - Booster for Pfizer series) [facility] Start: 12-05-2021 COVID-19 VACCINE (4 - Booster for Pfizer series) COVID-19 VACCINE (4 - Booster for Pfizer series) [facility] Start: 10-30-2021 ADVANCE DIRECTIVE DISCUSSION ADVANCE DIRECTIVE DISCUSSION [facility] Start: 12-17-2019 Adult depression scr eening assessment DEPRESSION SCREENING [facility] Start: 08-27-2019 Administration of varicella zoster vaccine Zoster (Shingles) Vaccine (3 of 3) [facility] Start: 08-27-2019 Shingrix Vaccine (3 of 3) Rivera grix Vaccine (3 of 3) [facility] Start: 06-23-2017 Pneumococcal Vaccine : 50+ (2 of 2 - PCV) Pneumococcal Vaccine: 50+ (2 of 2 - PCV) [facility] Start: 06-23-2017 Pneumococcal Vaccine : 65+ (2 - PCV) Pneumococcal Vaccine: 65+ (2 - PCV) [facility] Start: 06-23-2017 Pneumococcal Vaccine : 65+ (2 of 2 - PCV) Pneumococcal Vaccine: 65+ (2 of 2 - PCV) [facility] Start: 06-23-2017 Pneumococcal Vaccine : 65+ Years (2 of 2 - PCV) Pneumococcal Vaccine: 65+ Years (2 of 2 - PCV) [facility] Start: 11-03-2015 PNEUMOCOCCAL: 65+ (1 - PCV) PNEUMOCOCCAL: 65+ (1 - PCV) [facility] Start: 11-03-2015 PNEUMOCOCCAL: 65+ (2 - PCV) PNEUMOCOCCAL: 65+ (2 - PCV) [facility] Start: 2015 BONE DENSITY BONE DENSITY [facility] Start: 2015 Bone Density Screening Bone Density Screening [facility] Start: 12-01-2014 SHINGRIX VACCINE (2 of 3) RIVERA GRIX VACCINE (2 of 3) [facility] Start: 2010 RSV Vaccine (1 - 1-d ose 60+ series) RSV Vaccine (1 - 1-dose 60+ series) [facility] Start: 1995 COLOGUARD (FIT-DNA) COLOGUARD (FIT-D NA) [facility] Start: 1995 Colonoscopy COLONOSCOPY [facility] Start: 1995 COLORECTAL CANCER SCREENING COLORECTAL CANCER SCREENING [facility] Start: [address] COLONOGRAPHY [facility] Start: 1995 FECAL OCCULT BLOOD FECAL OCCULT BLOO D [facility] Start: 1995 Screening for malign ant neoplasm of colon [facility] Start: 1995 SIGMOIDOSCOPY SIGMOIDOSCOPY [facility] Start: 1990 Mammography [facility] Start: 1969 Urine microalbumin profile DTAP,TDAP ,TD (1 - Tdap) [facility] Start: 1968 ANNUAL PCP TEAM ASPHALT TILE FLOOR LAYER CAROL DISEASE VISIT ANNUAL PCP TEAM CHRONIC DISEASE VISIT [facility] Start: 1968 Anxiety Screening Anxiety Screening [facility] Start: 1968 BP CONTROLLED (<130/80) BP CONTROLLE D (<130/80) [facility] Start: 1968 Depression Screening Depression Scre ening [facility] Start: 1968 HEPATITIS C SCREENING HEPATITIS C SC [facility] Start: 1968 Hepatitis C screening Hepatitis C [facility] Start: 1950 Medicare Annual Well ness Visit Medicare Annual Wellness Visit [facility] Start: 1950 Screening for malign ant neoplasm of colon [facility] End: 08-08-2025 Basic metabolic 2000 panel - Serum or Plasma Basic Metabolic Panel Lab Routine Petechiae or ecchymoses 1 Occurrences starting 08/08/2024 until 08/08/2025 [facility] Work Phone: Comment on above: 1 Occurrences starti ng 08/08/2024 until 08/08/2025 End: 08-08-2025 CBC W Auto Differential panel - Blood CBC auto differential Lab Routine Petechiae or ecchymoses 1 Occurrences starting 08/08/2024 until 08/08/2025 [facility] Comment on above: 1 Occurrences starti ng 08/08/2024 until 08/08/2025 End: 11-28-2024 Colonoscopy Colonoscopy GI Routine Colon cancer screening 1 Occurrences starting 11/28/2023 until 11/28/2024 [facility] Work Phone: Comment on above: 1 Occurrences starti ng 11/28/2023 until 11/28/2024 Colonoscopy flx dx w /collj spec when pfrmd COLONOSCOPY DIAGNOSTIC / SCREENING Colon cancer screening Other fecal abnormalities [facility] End: 06-27-2024 ECG COMPLETE ECG COMPLETE ECG Routine S/P AVR (aortic valve replacement) 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 APC (atrial premature contractions) 1 Occurrences starting 06/27/2023 until 06/27/2024 [facility] Work Phone: Comment on above: 1 Occurrences starti ng 06/27/2023 until 06/27/2024 ECG COMPLETE ECG COMPLETE ECG 06/27/2023 8:52 AM EDT [facility] ECG COMPLETE ECG COMPLETE ECG 12/27/2023 9:42 AM EST [facility] ECG COMPLETE [facility] Work Phone: Comment on above: Ordered: 09/11/2024 ECG COMPLETE ECG COMPLETE ECG Routine Premature atrial complexes 03/25/2025 1:54 PM EDT [facility] OUTSIDE VENDOR CARDI AC OUTPATIENT EXTENDED RHYTHM RECORDING (WITHOUT TELEMETRY) OUTSIDE VENDOR CARDIAC OUTPATIENT EXTENDED RHYTHM RECORDING (WITHOUT TELEMETRY) Holter Routine S/P AVR (aortic valve replacement) and aortoplasty Nonrheumatic tricuspid valve regurgitation PVC (premature ventricular contraction) Ordered: 12/27/2023 [facility] Work Phone: Comment on above: Ordered: 12/27/2023 End: 08-08-2025 Thyroid profile includes TSH FT4 Thyroid profile includes TSH FT4 Lab Routine Hypothyroidism, unspecified type 1 Occurrences starting 08/08/2024 until 08/08/2025 [facility] Comment on above: 1 Occurrences starti ng 08/08/2024 until 08/08/2025 [facility] Immunizations Immunization Date Immunization Notes Care Provider Karly huffman 09-04-2024 influenza, high dose seasonal, preservative-free Rachael Canela DO Work Phone: [facility] 09-04-2024 influenza virus vacc ine, unspecified formulation Fanny Kinsey [facility] 10-25-2023 RSV, bivalent, prote in subunit RSVpreF, diluent reconstituted, 0.5 mL, PF Rachael Hernandezesther DO Work Phone: [facility] [employer] 09-26-2023 influenza virus vacc ine, unspecified formulation Radha Bustillos [facility] 09-26-2023 Influenza, High-dose , Quadrivalent Rachael Canela DO Work Phone: [facility] 08-31-2022 Influenza, High-dose , Quadrivalent Rachael Chairezs DO Work Phone: [facility] 08-31-2022 influenza virus vacc ine, unspecified formulation Andres Boyd MD Work Phone: [facility] 08-16-2022 SARS-CoV-2 (COVID-19 ) [id number] Radha Orzech [facility] 02-17-2022 SARS-CoV-2 mRNA (zdtwfsuhygs-ryfr-jretdh e) vaccine Radha Orzech [facility] 09-02-2021 influenza virus vacc ine, unspecified formulation Radha Orzech [facility] 09-02-2021 Influenza, High-dose , Quadrivalent Rachael Canela DO Work Phone: [facility] 08-04-2021 SARS-CoV-2 (COVID-19 ) mRNA BNT-162b2 vax Radha Orzech [facility] 12-17-2020 SARS-CoV-2 (COVID-19 ) mRNA BNT-162b2 vax Radha Orzech [facility] Comment on above: Result Comment: 2023: [id number] 11-26-2020 SARS-CoV-2 (COVID-19 ) mRNA BNT-162b2 vax Radha Orzech [facility] Comment on above: Result Comment: 2023: [id number] 07-30-2020 influenza virus vacc ine, unspecified formulation Radha Orzech [facility] 07-30-2020 influenza, injectabl e, quadrivalent, preservative free Rachael Yuhas DO Work Phone: [facility] 07-05-2020 influenza virus vacc ine, unspecified formulation Radha Orzech [facility] 07-05-2020 influenza, high dose seasonal, preservative-free Rachael Yuhas DO Work Phone: [facility] 08-21-2019 influenza virus vacc ine, unspecified formulation Radha Orzech [facility] 08-21-2019 influenza, high dose seasonal, preservative-free Rachael Yuhas DO Work Phone: [facility] 07-02-2019 zoster vaccine, live Rachael Hernandez has DO Work Phone: [facility] 07-02-2019 zoster vaccine, unspecified formulation Rachael Yuhas DO Work Phone: [facility] 04-29-2019 zoster vaccine recombinant Rachael Yuhas DO Work Phone: [facility] 10-01-2018 influenza virus vacc ine, unspecified formulation Radha Orzech [facility] 10-01-2018 influenza, seasonal, injectable, preservative free Rachael Yuhas DO Work Phone: [facility] 07-17-2017 tetanus toxoid, redu andrea diphtheria toxoid, and acellular pertussis vaccine, adsorbed Rachael Yuhas DO Work Phone: [facility] 01-11-2017 influenza virus vacc ine, unspecified formulation Radha Orzech [facility] 01-11-2017 influenza, seasonal, injectable Rachael Yuhas DO Work Phone: [facility] 06-23-2016 pneumococcal polysaccharide vaccine, 23 valent Rachael Yuhas DO Work Phone: [facility] 09-29-2015 influenza virus vacc ine, unspecified formulation Radha Orze [facility] 09-29-2015 seasonal influenza, intradermal, preservative free Rachael Hernandezhas DO Work Phone: [facility] 11-03-2014 pneumococcal polysaccharide vaccine, 23 valent Andres Boyd MD Work Phone: [facility] 10-06-2014 zoster vaccine, live Andres Boyd MD Work Phone: [facility] 09-24-2014 influenza virus vacc ine, unspecified formulation Radha OrzeQ-Layer [facility] 09-24-2014 influenza, seasonal, injectable, preservative free Rachael Hernandezhas DO Work Phone: [facility] 08-04-2014 influenza virus vacc ine, unspecified formulation Radha OrSemprius [facility] 08-04-2014 influenza, high dose seasonal, preservative-free Andres Boyd MD Work Phone: [facility] 07-30-2014 pneumococcal polysaccharide vaccine, 23 valent Rachael Hernandezhas DO Work Phone: [facility] 03-20-2001 hepatitis B vaccine, adult dosage Rachael Yuhas DO Work Phone: [facility] 10-19-2000 hepatitis B vaccine, adult dosage Rachael Yuhas DO Work Phone: [facility] 09-19-2000 hepatitis B vaccine, adult dosage Rachael Canela DO Work Phone: [facility] Payers Date Payer Category Payer Self-pay [id number] 2023 Commercial Managed C are - POS [employer] [id number] 2020 Private Health Insurance [employer] A ETNA MEDICARE SUPPLEMENT [id number] 2020-Present [phone] [address] [address] [place] [address] Indemnity [id number] 2020 Private Health Insurance [id number] 2020 Private Health Insurance CLI [id number] 2015 Medicare MEDICARE MEDICAR E A AND B [id number] 2015-Present [phone] [place] [address] Medicare [id number] 2015 Medicare [id number] 1959 Medicare [id number] 1959 Private Health Insurance [facility] [id number] 1950 Unknown [id number] [id number]. 2.593 1950 Unknown [id number] 2.16.840.1.557767.3.579. 2.1286 1950 Unknown [id number] 2.16.840.1.629511.3.579. 2.1286 1950 Unknown [id number] 2.16.840.1.909093.3.579. 2.1286 1950 Unknown [id number] 2.16.840.1.959934.3.579. 2.1286 1950 Unknown [id number] 2.16.840.1.264021.3.579. 2.1286 1950 Unknown [id number] 2.16.840.1.543690.3.579. 2.1286 1950 Unknown [id number] 2.16.840.1.657281.3.579. 2.1286 1950 Unknown [id number] 2.16.840.1.883381.3.579. 2.1259 1950 Unknown [id number] 2.16.840.1.842007.3.579. 2.1259 1950 Unknown [id number] 2.16.840.1.030834.3.579. 2.1259 1950 Unknown [id number] 2.16.840.1.854807.3.579. 2.1259 1950 Unknown [id number] 2.16.840.1.903334.3.579. 2.1259 1950 Unknown [id number] 2.16.840.1.418964.3.579. 2.1286 1950 Unknown [id number] 2.16.840.1.328383.3.579. 2.1286 1950 Unknown [id number] 2.16.840.1.157338.3.579. 2.727 1950 Unknown [id number] 2.16.840.1.162109.3.579. 2.727 1950 Unknown [id number] 2.16.840.1.770314.3.579. 2.727 Private Health Insurance [facility] [id number] Unknown [facility] [id number] Unknown [id number] 2.16.840.1.323125.3.579. 2.531 Social History Date Type Detail Facility Start: 11-17-2011 End: 01-30-2023 Tobacco smoking status NHIS Never smoked tobacco [facility] Work Phone: Start: 11-17-2011 End: 01-30-2023 Tobacco use and exposure Smokeless tobacco non-user [facility] Work Phone: Start: 12-27-2021 End: 12-05-2024 Alcohol intake Current drinker of alcohol (finding) [facility] Start: 11-17-2011 History SDOH Alcohol Comment social [facility] Start: 1950 Sex Assigned At Female [facility] Start: 06-17-2022 End: 06-27-2022 Exposure to SARS-CoV-2 (event) Not sure [facility] Work Phone: Start: 12-27-2022 End: 11-28-2023 Sex Assigned At Female [facility] Start: 12-27-2022 End: 11-28-2023 History of Social function [facility] Adult Depression Screening Assessment 0 [facility] Start: 12-21-2020 Gender identity Identifies as female gender (finding) [facility] Start: 12-21-2020 Sexual orientation Heterosexual (finding) [facility] Tobacco smoking stat [facility] Tobacco smoking consumption unknown [facility] Start: 1950 Sex assigned at Not on file [facility] Has the [email or web address], [employer], or [employer] company threatened to shut off services in your home in past 12Mo No [facility] Do you belong to any clubs or organizations such as samaritan groups, unions, fraternal or athletic groups, or school groups? Yes [facility] Are you now , , , , never or living with a partner? [facility] How often to you hav e a drink containing alcohol? 2-3 time sa week [facility] [facility] How many standard dr inks containing alcohol do you have on a typical day? 1 or 2 [facility] How often do you hav e 6 or more drinks on 1 occasion? Never [facility] Do you feel stress - tense, restless, nervous, or anxious, or unable to sleep at night because your mind is troubled all the time - these days [OSQ] Not at all [facility] Start: 09-27-2023 Alcohol Comment socially [facility] Start: 06-04-2015 Sex Female (finding) [facility] Medical Equipment Procedure Code Equipment Code Equipment Origin al Text Equipment Identifier Dates Graft Cv 30cm 30 mm 2 Vlr Wvn - [id number] Start: 12-01-2014 Heidelberg Cv 4x.5in Thk1.65mm Ptfe - [id number] Start: 12-01-2014 Comment on above: Description: pledget s on suture Heidelberg Cv 6x6in Thk1.65mm Ptfe - [id number] Start: 12-01-2014 Valve Aort 23mm C-E Prm Bprth - [id number] Start: 12-01-2014 Functional Status Date Assessment Result Facility 11-11-2024 Functional Status N/A [facility] 06-18-2024 Functional Status N/A [facility] 11-28-2023 Functional Status N/A [facility] 12-09-2022 Functional Status N/A [facility] 04-28-2015 Are you deaf, or do you have serious difficulty hearing No 04/28/2015 10:04 AM EDLilliana Elmore CNP No [facility] 04-28-2015 Are you blind, or do you have serious difficulty seeing, even when wearing glasses Yes 04/28/2015 10:04 AM EDLilliana Elmore CNP Yes [facility] 04-28-2015 Do you have serious difficulty walking or climbing stairs No 04/28/2015 10:04 AM EDLilliana Elmore CNP No [facility] 04-28-2015 Do you have difficul ty dressing or bathing No 04/28/2015 10:04 AM Lilliana Maxwell CNP No [facility] 04-28-2015 Because of a physica l, mental, or emotional condition, do you have difficulty doing errands alone such as visiting a physician's office or shopping Yes 04/28/2015 10:04 AM EDLilliana Elmore CNP Yes [facility] Mental Status Date Assessment Result Facility 04-28-2015 Because of a physica l, mental, or emotional condition, do you have serious difficulty concentrating, remembering, or making decisions No 04/28/2015 10:04 AM EDLilliana Elmore CNP No [facility] Clinical Notes 12-24-2014 to 03-31-2025 Telephone Encounter - Fanny Kinsey CMA - 03/31/2025 10:40 AM EDTTelephone Encounter - Fanny Kinsey CMA - 03/31/2025 10:40 AM EDTPatient Nitza Neal APRN.CNP - 03/25/2025 1:15 PM EDT Note Date & Type Note Facility 03-31-2025 Miscellaneous Notes Left this message for her on her confidential voice mail documented in this encounter [facility] 03-31-2025 Telephone encounter Note Left this message for her on her confidential voice mail [facility] 03-25-2025 Instructions Nitza Mae, CHARLETTE.KILNMAN - 03/25/2025 1:57 PM EDT We discussed your heart health: - Your echocardiogram from August showed normal heart pumping function (ejection fraction of 66%) with mild diastolic dysfunction and moderate tricuspid valve leakage (2+). These findings have improved compared to prior studies. We will repeat an echocardiogram in August to monitor the tricuspid valve leakage. - Your aortic valve, which was replaced with a tissue valve in 2014, is functioning well. Based on available data, this type of valve can last 15-20 years or longer in some cases. - You reported no chest pain, shortness of breath, or other concerning symptoms during daily activities. However, you mentioned mild shortness of breath with exertion while mowing the lawn, which resolved quickly. Please monitor for any worsening symptoms such as chest pain, persistent shortness of breath, or irregular heartbeats, and let us know if they occur. - We will check your magnesium and potassium levels today, as I noticed some irregular heartbeats during your exam. These labs will help ensure your electrolytes are balanced. We discussed your weight and fluid management: - Your weight has increased slightly, likely due to recent vacation-related dietary changes. You are currently at 129 lbs, up from 125 lbs in August. - Continue monitoring your weight at home. If you gain 3 lbs or more within a short period, take Lasix as prescribed to manage fluid retention. Let us know if you need a refill or have any concerns. We discussed your skin and bruising: - You mentioned thin skin and easy bruising, which are likely age-related. Your blood counts, including platelets, have been normal in recent years, but we will recheck them today to ensure there are no underlying issues. - If bruising worsens or persists, or if you notice any unusual bleeding (e.g., nosebleeds, blood in urine or stool), please let us know. If needed, we may refer you to hematology for further evaluation. We discussed your hydration and lifestyle: - Please continue to stay well-hydrated by increasing your water intake. This is important for your overall health and may help with heart rhythm stability. - Limit alcohol to no more than 1 glass of wine per day, and continue to minimize caffeine intake as you have been doing. Next steps: - Complete your lab work today to check your blood counts, magnesium, and potassium levels. - We will schedule your next echocardiogram for August, ideally on the same day as your follow-up with Dr. Boyd. - Continue monitoring your symptoms and weight at home. Contact us if you experience any new or worsening symptoms, such as chest pain, shortness of breath, or significant weight changes. Thank you for coming in today. documented in this encounter [facility] 03-25-2025 Note HNO ID: [id number] Author: NITZA MAE APRN.JESSIE Service: ? Author Type: Nurse Practitioner Type: Progress Notes Filed: 03/25/2025 15:12 Note Text: [facility] [place] [facility] Department of Cardiovascular Medicine SECTION OF REGIONAL CARDIOLOGY March 25, 2025 OUTPATIENT VISIT TYPE ESTABLISHED PRIMARY CARE PHYSICIAN: Rachael Canela DO SUBJECTIVE: CHIEF COMPLAINT: Patient presents with: Cardiology Follow Up HISTORY OF PRESENT ILLNESS: Lesvia Ramos is a 74 year old female who presents for CVM follow up. Last visit: 09/11/[address] Andres Boyd Doing well, no specific CV symptoms. No further palpitations. Weight has been consistent between 124-126 lbs. Today, patient reports generally feeling well and denies any chest pain, dyspnea, diaphoresis, jaw or arm pain, lightheadedness, dizziness, syncope, or palpitations. She notes a recent episode of mild dyspnea while using a [id number] push mower, which required slightly more exertion than usual. This was a brief and isolated incident, and she denies any associated chest discomfort. She has not experienced any abnormal heartbeats recently. She reports a slight weight gain, which she attributes to increased food intake during a recent vacation. Her weight has been stable at home, ranging from 126 to 127 lbs. She has not needed to use Lasix, which was prescribed for fluid management if she gains 3 lbs within a short period. She expresses concern about easy bruising and thin skin, noting that she bruises easily with minor bumps. She denies any epistaxis, hematuria, or hematochezia. She is not on any anticoagulants or antiplatelet medications. 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 CV history/tests/imaging reviewed and summarized: bicuspid aortic [...] since then, but intermittent palpitations. Moderate TR REVIEW OF SYSTEMS: Detailed 14 systems reviewed. Pertinent information, positive and/or negative or non-contributory with the exception of pertinent positives described in HPI. Past Medical, Family and Social history reviewed; unchanged from prior. ASSESSMENT/PLAN: Lesvia Ramos was seen today for CVM follow up. Diagnoses and all orders for this visit: Encounter Diagnosis ICD-10-CM 1. 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 Abnormal bruising R23.3 COMPLETE BLOOD COUNT 3. SVT (supraventricular tachycardia) (HCC) I47.10 BASIC METABOLIC PANEL MAGNESIUM 4. Chronic diastolic heart failure (HCC) I50.32 5. Mixed hyperlipidemia E78.2 6. S/P AVR (aortic valve replacement) 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 Z95.2 7. Premature atrial complexes I49.1 BASIC METABOLIC PANEL MAGNESIUM ECG COMPLETE 8. History of heparin-induced thrombocytopenia Z86.2 9. Essential (primary) hypertension I10 -S/p AVR and aortic root repair for bicuspid aortic valve 11/2014. Echocardiogram August 2024-LVEF around 66 %, RV is normal in size, moderate TR, normal RA pressure and normal RVSP. TR severity has improved since prior. Prosthetic aortic valve functioning well. Pre-op cath 2014 with angiographically normal coronaries. Antibiotics-amoxicillin 2 gm 30 mins prior to dental procedures. -Chronic heart failure with preserved EF (66%), .ACC/AHA class C, NYHA class II. EDW~ 126 pounds. Couple of pounds weight gain over vacation. No acute decompensation. Continue lasix 20 mg daily as needed. -Primary Hypertension -reasonable controlled today. On Aldactone/hydrochlorothiazide 25 mg / 25 mg-half tablet daily Was unable to afford SGLT2 I Hyperlipidemia. On atorvastatin 10 mg daily. -Postoperative atrial flutter, no documented recurrence. Palpitations, deviously coincided with episodes of SVT by monitoring. Currently controlled on Toprol XL 50 mg bid, with occasional APC's.Continue magnesium supplementation at 250 mg daily PVCs, symptoms are currently controlled, monitoring for December 2023 with 11% PVC burden, normal LVEF. Will monitor for now. -Venous insufficiency, B/L LE. Currently controlled with compressions -Continue lifestyle modifications: Reduce sodium intake, regular aerobic exercise 30 mins/day for at least 5 days/week, eating heart healthy/Plant-based/mostly whole foods, limited animal products and low dairy diet and maintaining ideal body weight with BMI < 25. Follow up: -Patient will follow-up in with communication in between if symptoms (more content not included)... [facility] [place] 03-25-2025 History of Present illness Narrative Images from the original note were not included. [facility] [place] [facility] Department of Cardiovascular Medicine SECTION OF REGIONAL CARDIOLOGY March 25, 2025 OUTPATIENT VISIT TYPE ESTABLISHED PRIMARY CARE PHYSICIAN: Rachael Canela DO SUBJECTIVE: CHIEF COMPLAINT: Patient presents with: Cardiology Follow Up HISTORY OF PRESENT ILLNESS: Lesvia Ramos is a 74 year old female who presents for CVM follow up. Last visit: 09/11/[address] Andres Boyd Doing well, no specific CV symptoms. No further palpitations. Weight has been consistent between 124-126 lbs. Today, patient reports generally feeling well and denies any chest pain, dyspnea, diaphoresis, jaw or arm pain, lightheadedness, dizziness, syncope, or palpitations. She notes a recent episode of mild dyspnea while using a [id number]-cyzw-zdxufsysa push mower, which required slightly more exertion than usual. This was a brief and isolated incident, and she denies any associated chest discomfort. She has not experienced any abnormal heartbeats recently. She reports a slight weight gain, which she attributes to increased food intake during a recent vacation. Her weight has been stable at home, ranging from 126 to 127 lbs. She has not needed to use Lasix, which was prescribed for fluid management if she gains 3 lbs within a short period. She expresses concern about easy bruising and thin skin, noting that she bruises easily with minor bumps. She denies any epistaxis, hematuria, or hematochezia. She is not on any anticoagulants or antiplatelet medications. 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 CV history/tests/imaging reviewed and summarized: bicuspid aortic [...] since then, but intermittent palpitations. Moderate TR REVIEW OF SYSTEMS: Detailed 14 systems reviewed. Pertinent information, positive and/or negative or non-contributory with the exception of pertinent positives described in HPI. Past Medical, Family and Social history reviewed; unchanged from prior. ASSESSMENT/PLAN: Lesvia Ramos was seen today for CVM follow up. Diagnoses and all orders for this visit: Encounter Diagnosis ICD-10-CM 1. 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 Abnormal bruising R23.3 COMPLETE BLOOD COUNT 3. SVT (supraventricular tachycardia) (HCC) I47.10 BASIC METABOLIC PANEL MAGNESIUM 4. Chronic diastolic heart failure (HCC) I50.32 5. Mixed hyperlipidemia E78.2 6. S/P AVR (aortic valve replacement) 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 Z95.2 7. Premature atrial complexes I49.1 BASIC METABOLIC PANEL MAGNESIUM ECG COMPLETE 8. History of heparin-induced thrombocytopenia Z86.2 9. Essential (primary) hypertension I10 -S/p AVR and aortic root repair for bicuspid aortic valve 11/2014. Echocardiogram August 2024-LVEF around 66 %, RV is normal in size, moderate TR, normal RA pressure and normal RVSP. TR severity has improved since prior. Prosthetic aortic valve functioning well. Pre-op cath 2014 with angiographically normal coronaries. Antibiotics-amoxicillin 2 gm 30 mins prior to dental procedures. -Chronic heart failure with preserved EF (66%), .ACC/AHA class C, NYHA class II. EDW~ 126 pounds. Couple of pounds weight gain over vacation. No acute decompensation. Continue lasix 20 mg daily as needed. -Primary Hypertension -reasonable controlled today. On Aldactone/hydrochlorothiazide 25 mg / 25 mg-half tablet daily Was unable to afford SGLT2 I Hyperlipidemia. On atorvastatin 10 mg daily. -Postoperative atrial flutter, no documented recurrence. Palpitations, deviously coincided with episodes of SVT by monitoring. Currently controlled on Toprol XL 50 mg bid, with occasional APC's.Continue magnesium supplementation at 250 mg daily PVCs, symptoms are currently controlled, monitoring for December 2023 with 11% PVC burden, normal LVEF. Will monitor for now. -Venous insufficiency, B/L LE. Currently controlled with compressions -Continue lifestyle modifications: Reduce sodium intake, regular aerobic exercise 30 mins/day for at least 5 days/week, eating heart healthy/Plant-based/mostly whole foods, limited animal products and low dairy diet and maintaining ideal body weight with BMI < 25. Follow up: -Patient will follow-up in with communication in between if symptoms or changes occur. -Patient should continue to follow with their primary physician for routine health care maintenance and age appropriate risk factor assessment, modification and screenings. PHYSICAL EXAMINATION: BP 131/70 Pulse 76 Wt 58.8 kg (129 lb 10.1 oz) BMI 22.25 kg/m General appearance: in no acute distress, alert. Eyes: Anicteric sclera. EOMI Neck: No carotid bruits. No JVD Lungs: No wheezing, crackles, or rhonchi. Heart: Regular rhythm. Regular rate. 2/6 systolic murmur. No peripheral edema Abdomen: Abdomen soft, non-tender. Vascular: Central and peripheral pulses: +2. Neuro: No gross focal deficits Psych: mood appropriate Skin: skin changes consistent with chronic venous insufficiency; wearing compressions. Last 4 Encounter Wt Readings: Date: Wt: 09/11/2024 57 kg (125 lb 10.6 oz) 02/28/2024 57.3 kg (126 lb 5.2 oz) 12/27/2023 59.9 kg (132 lb) 06/27/2023 59 kg (130 lb) Last 4 Encounter BP Readings: Date: BP: 09/11/2024 122/68 02/28/2024 120/77 12/27/2023 114/55 06/27/2023 140/82 Last 4 Encounter Pulse Readings: Date: Pulse: 09/11/2024 66 02/28/2024 64 12/27/2023 69 06/27/2023 69 CARDIOVASCULAR MEDICINE TESTING: I have personally reviewed laboratory results, ECG and echocardiogram report Echocardiogram done today, August 2024, reviewed and discussed with patient. Normal LVEF, moderate TR, grade 1 diastolic dysfunction, normal functioning prosthetic aortic valve, normal RVSP Ambulatory monitor from December 2023 reviewed and [...] with DVI of 0.51. RVSP 30 mmHg. PERTINENT LABORATORY STUDIES Potassium (mmol/L) Date Value 01/17/2024 4.2 06/29/2021 5.2 Sodium (mmol/L) Date Value 01/17/2024 144 06/29/2021 139 Magnesium (mg/dL) Date Value 12/27/2022 2.2 12/11/2014 2.5 Creatinine (mg/dL) Date Value 01/17/2024 0.97 06/29/2021 0.81 BUN (mg/dL) Date Value 01/17/2024 18 06/29/2021 18 Glucose (mg/dL) Date Value 01/17/2024 116 06/29/2021 91 PT INR (no units) Date Value 01/06/2015 2.2 TSH Date Value 12/27/2022 0.577 mIU/L 06/29/2021 0.514 uU/mL NT Pro BNP (pg/mL) Date Value 06/29/2021 512 Total Cholesterol, Nonfasting Date Value Ref Range Status 12/27/2022 148 <200 mg/dL Final Comment: <200 mg/dL, Desirable 200-239 mg/dL, Borderline high >239 mg/dL, High HDL Cholesterol, Nonfasting Date Value Ref Range Status 12/27/2022 69 >39 mg/dL Final Comment: 40-59 mg/dL, Acceptable >59 mg/dL, High: Negative risk factor for coronary heart disease <40 mg/dL, Low: Positive risk factor for coronary heart disease LDL Cholesterol Calculated, Nonfasting Date Value Ref Range Status 12/27/2022 67 <100 mg/dL Final Comment: <100 mg/dL, Optimal 100-129 mg/dL, Near optimal/above optimal 130-159 mg/dL, Borderline high 160-189 mg/dL, High >189 mg/dL, Very high Secondary prevention optimal LDL Cholesterol levels are recommended to be < 70 mg/dL Triglycerides, Nonfasting Date Value Ref Range Status 12/27/2022 62 <150 mg/dL Final Comment: <150 mg/dL, Normal 150-199 mg/dL, Borderline high 200-499 mg/dL, High >499 mg/dL, Very high MEDICATIONS Current Outpatient Medications on File Prior to Visit Medication Sig spironolactone-hctz 25/25 (ALDACTAZIDE) 25-25 mg per tablet TAKE 1/2 (ONE-HALF) OF A TABLET BY MOUTH DAILY metoprolol succinate ER (TOPROL XL) 50 mg 24 hr tablet take 1 tablet by mouth twice daily LATANOPROST OPHTHALMIC Use 1 Drop in eyes once daily. furosemide (LASIX) 20 mg tablet Take 1 tablet by mouth as directed. TAKE 20 MG DAILY NEEDED FOR WEIGHT INCREASE OF >5 LBS OVER 3 DAYS OR WORSENING LEG SWELLING. (Patient not taking: Reported on 09/11/2024) Magnesium 250 mg tab Take 250 mg by mouth once daily. timolol/dorzolamide/latanop/PF (DQUZRUJ-LGLSFHDSAC-JSKQZJM,PF,) 0.5-2-0.005 % drop Use 1 Drop in eyes every evening. (Patient not taking: Reported on 02/28/2024) atorvastatin (LIPITOR) 10 mg tablet Take 10 [...] EXCEED 4,000 MG IN 24 HOUR PERIOD). No current facility-administered medications on file prior to visit. ALLERGIES Allergen Reactions Heparin Other: See Comments HIT Sulfa (Sulfonamide * Rash ACTIVE PROBLEM LIST Summary - 12/02/2014 (Very Severe priority) Comment: Indication for hospital admission: discharged from [facility] on 12/06 after having aortic valve replacement and repair of ascending aorta on 12/01/14. She was staying with family during the recovery period and overall was doing well. READMIT: Transferred from [facility] 12/07/14 after presenting with acute onset [...] controlled Dispo: DC today. . Lives in [place], [place]. Coumadin to be managed by HIT (+) - 12/09/2014 (A priority) Comment: History: POHS as below 12/01/14 after prior heparin exposure (heart cath). R/A [...] x 1 month f/u labs with PCP Hypothyroidism - 12/04/2014 (D priority) Comment: History: TSH normal on synthroid pre-op. Assessment: stable. Plan: con't synthroid. Hyperlipidemia - 12/02/2014 (D priority) Comment: History: Pre-op LDL 66 on Zocor. Assessment: controlled. 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) 12/07/2014 PAST SURGICAL HISTORY Procedure Laterality Date [...] visit. This note was partially generated with Machine Talker voice recognition software and may contain errors, including spelling, grammar, syntax and misrecognition of what was dictated, that may not be fully corrected. I appreciate the opportunity to participate in this patient's care. Please do not hesitate to call my office if you have any questions. The patient consented to the use of MyRoll software for draft documentation of the visit consistent with [facility] s Notice of Privacy Practices. CONTACT INFORMATION: Nitza Mae APRN.CNP Adult Nurse Practitioner [facility] Department of Cardiovascular Medicine [facility] Heart, Vascular, Thoracic [place] [facility] Consult Team documented in this encounter [facility] 12-23-2024 Telephone encounter Note The following approved medication requests have been transmitted electronically. Requested Prescriptions Signed Prescriptions Disp Refills spironolactone-hctz 25/25 (ALDACTAZIDE) 25-25 mg per tablet 45 tablet 3 Sig: TAKE 1/2 (ONE-HALF) OF A TABLET BY MOUTH DAILY Authorizing Provider: ANDRES BOYD Ordering User: NITZA MAE APRN.CNP [facility] Work Phone: 12-23-2024 Miscellaneous Notes The following approved medication requests have been transmitted electronically. Requested Prescriptions Signed Prescriptions Disp Refills spironolactone-hctz 25/25 (ALDACTAZIDE) 25-25 mg per tablet 45 tablet 3 Sig: TAKE 1/2 (ONE-HALF) OF A TABLET BY MOUTH DAILY Authorizing Provider: ANDRES BOYD Ordering User: NITZA MAE APRN.CNP Received request for refill of the following medications: Requested Prescriptions Pending Prescriptions Disp Refills spironolactone-hctz 25/25 (ALDACTAZIDE) 25-25 mg per tablet [Pharmacy Med Name: spironolactone 25 mg-hydrochlorothiazide 25 mg tablet] 45 tablet 3 Sig: TAKE 1/2 (ONE-HALF) OF A TABLET BY MOUTH DAILY Patient requested a 90 day refill. Pharmacy verified and updated accordingly. Patient was last seen in cardiology office: 09/11/24. Upcoming appointment scheduled: 03/25/25. Labs: Hemoglobin (g/dL) Date Value 06/27/2023 15.2 06/29/2021 15.7 Hematocrit (%) Date Value 06/27/2023 46.3 06/29/2021 48.6 WBC (k/uL) Date Value 06/27/2023 6.26 06/29/2021 6.10 Platelet Count (k/uL) Date Value 06/27/2023 144 06/29/2021 172 Creatinine Date Value Ref Range Status 01/17/2024 0.97 (H) 0.58 - 0.96 mg/dL Final 12/27/2023 1.09 (H) 0.58 - 0.96 mg/dL Final documented in this encounter [facility] 12-23-2024 Telephone encounter Note Received request for refill of the following medications: Requested Prescriptions Pending Prescriptions Disp Refills spironolactone-hctz 25/25 (ALDACTAZIDE) 25-25 mg per tablet [Pharmacy Med Name: spironolactone 25 mg-hydrochlorothiazide 25 mg tablet] 45 tablet 3 Sig: TAKE 1/2 (ONE-HALF) OF A TABLET BY MOUTH DAILY Patient requested a 90 day refill. Pharmacy verified and updated accordingly. Patient was last seen in cardiology office: 09/11/24. Upcoming appointment scheduled: 03/25/25. Labs: Hemoglobin (g/dL) Date Value 06/27/2023 15.2 06/29/2021 15.7 Hematocrit (%) Date Value 06/27/2023 46.3 06/29/2021 48.6 WBC (k/uL) Date Value 06/27/2023 6.26 06/29/2021 6.10 Platelet Count (k/uL) Date Value 06/27/2023 144 06/29/2021 172 Creatinine Date Value Ref Range Status 01/17/2024 0.97 (H) 0.58 - 0.96 mg/dL Final 12/27/2023 1.09 (H) 0.58 - 0.96 mg/dL Final [facility] 12-05-2024 History of Present illness Narrative IM PROGRESS NOTE Patient - Lesvia Ramos Age - 74 y.o. - 1950 ASSESSMENT & PLAN 1. Essential hypertension (Primary) -goals of treatment reviewed with the patient -office and home readings are at goal -no change to current regimen including metoprolol XL 50 mg daily plus spironolactone 25 mg daily 2. Hyperlipidemia, unspecified hyperlipidemia type -currently on atorvastatin 10 mg daily -repeat lipid panel to assess efficacy of current treatment, and LFTs to evaluate for side effects - Comprehensive metabolic panel; Future - Lipid profile; Future 3. Hypothyroidism, unspecified type -currently on levothyroxine 75 mcg daily -most recent TSH and T4 within normal range -no changes today 4. Sensorineural hearing loss (SNHL) of right ear with restricted hearing of left ear -referred to audiology for audiogram Subjective CARDIOVASCULAR FOLLOW-UP This is a follow up of a pre-existing problem. Blood pressures are being checked outside the office. Frequency: weekly Readings have been normal. BP readings outside the office range from 120 - 129 mmHg systolic and 70 - 79 mmHg diastolic. The 10-year ASCVD risk score (Kehinde RODRIGUEZ, et al., 2019) is: 14%* Values used to calculate the score: Age: 74 years Sex: Female Is Non- : No Diabetic: No Tobacco smoker: No Systolic Blood Pressure: 110 mmHg Is BP treated: Yes HDL Cholesterol: 98 mg/dL* Total Cholesterol: 180 mg/dL* * - Cholesterol units were assumed for this score calculation Patient reports following dosing instructions Physical activity: Regular walking and yd and housework Dietary efforts show low fat/low cholesterol diet. CV symptoms review was negative for rapid or irregular heart rate, palpitations, syncope A review of systems was negative except for the following: General: weight loss Endocrine: thyroid function has been stable. Taking levothyroxine without problems. Musculoskeletal: Was having sciatica with radicular symptoms. PT did not help. She started wearing her foot orthotics again, and the back pain is much improved. ENT: Has noticed some decreased hearing. Her has mentioned it. Thinks the right is slightly worse than the left. Exam BP 110/70 (BP Site: Left Arm, BP Postition: Sitting) Pulse 88 Temp 36.1 C (97 F) (Tympanic) Ht 161.3 cm (5' 3.5 ) Wt 57.7 kg (127 lb 3.2 oz) SpO2 98% BMI 22.18 kg/m Physical Exam Vitals reviewed. Constitutional: General: She is not in acute distress. Appearance: She is normal weight. She is not toxic-appearing. HENT: Head: Normocephalic. Right Ear: External ear normal. Left Ear: External ear normal. Ears: Comments: Sanchez test lateralizes to the right Nose: Nose normal. Mouth/Throat: Mouth: Mucous membranes are moist. Eyes: General: No scleral icterus. Neck: Vascular: No carotid bruit. Cardiovascular: Rate and Rhythm: Normal rate and regular rhythm. Pulses: Normal pulses. Radial pulses are 2+ on the right side and 2+ on the left side. Heart sounds: Murmur (2/6 systolic murmur 2nd right interspace and left lower sternal border) heard. No gallop. Pulmonary: Effort: Pulmonary effort is normal. Breath sounds: No wheezing or rales. Abdominal: Palpations: Abdomen is soft. Musculoskeletal: General: No tenderness. Right lower leg: No edema. Left lower leg: No edema. Lymphadenopathy: Cervical: No cervical adenopathy. Skin: General: Skin is warm and dry. Coloration: Skin is not jaundiced. Findings: No bruising. Neurological: Mental Status: She is alert and oriented to person, place, and time. Motor: No weakness. Coordination: Coordination normal. Psychiatric: Mood and Affect: Mood normal. Behavior: Behavior normal. Meds Current Outpatient Medications: acetaminophen (TYLENOL) 325 mg tablet, Take 2 tablets (650 mg total) by mouth., Disp: , Rfl: atorvastatin (LIPITOR) 10 mg tablet, TAKE 1 TABLET BY MOUTH ONCE DAILY, Disp: 90 tablet, Rfl: 1 cholecalciferol 1,000 units tablet, Take 1 tablet (1,000 Units total) by mouth in the morning., Disp: , Rfl: latanoprost (XALATAN) 0.005 % ophthalmic solution, Refill(s) 0, Disp: , Rfl: levothyroxine (SYNTHROID, LEVOTHROID) 75 MCG tablet, TAKE 1 TABLET BY MOUTH DAILY, Disp: 90 tablet, Rfl: 1 magnesium oxide 250 mg tablet, Take 1 tablet (250 mg total) by mouth in the morning., Disp: , Rfl: metoprolol succinate XL (TOPROL XL) 50 mg 24 hr tablet, Take 1 tablet (50 mg total) by mouth in the morning and 1 tablet (50 mg total) before bedtime., Disp: , Rfl: spironolactone (ALDACTONE) 25 mg tablet, Take 1 tablet (25 mg total) by mouth in the morning., Disp: , Rfl: Lab Results No visits with results within 1 Month(s) from this visit. Latest known visit with results is: Hospital Outpatient Visit on 08/08/2024 Component Date Value Ref Range Status TSH 08/08/2024 2.22 0.49 - 4.67 uIU/mL Final T4, free 08/08/2024 1.13 0.61 - 1.60 ng/dL Final White Blood Cells 08/08/2024 6.2 4.0 - 11.0 X10E9/L Final RBC count 08/08/2024 4.79 3.80 - 5.20 X10E12/L Final Hemoglobin 08/08/2024 15.9 (H) 11.7 - 15.5 g/dL Final Hematocrit 08/08/2024 46.7 35 - 47 % Final MCV 08/08/2024 98 80 - 100 fL Final MCH 08/08/2024 33.2 27 - 34 pg Final MCHC 08/08/2024 34.1 32 - 36 g/dL Final RDW 08/08/2024 12.5 11.5 - 15.0 % Final Platelets 08/08/2024 171 150 - 450 X10E9/L Final MPV 08/08/2024 10.3 7 - 12 fL Final % neutrophils 08/08/2024 72.1 % Final % lymphocytes 08/08/2024 20.2 % Final % monocytes 08/08/2024 6.5 % Final % eosinophils 08/08/2024 0.4 % Final % Basophils 08/08/2024 0.8 % Final Neutrophils Absolute (A) 08/08/2024 4.4 1.5 - 6.6 X10E9/L Final Lymphocytes Absolute 08/08/2024 1.2 1.0 - 3.5 X10E9/L Final Monocytes Absolute 08/08/2024 0.4 0 - 0.9 X10E9/L Final Eosinophils Absolute 08/08/2024 0.0 0.0 - 0.4 X10E9/L Final Basophils Absolute 08/08/2024 0.0 0.0 - 0.2 X10E9/L Final Sodium 08/08/2024 141 134 - 146 mmol/L Final Potassium, Bld 08/08/2024 4.9 3.5 - 5.0 mmol/L Final Chloride 08/08/2024 101 98 - 109 mmol/L Final CO2 08/08/2024 30 22 - 32 mmol/L Final Anion gap 08/08/2024 10 5 - 15 mmol/L Final BUN 08/08/2024 24 5 - 27 mg/dL Final Creatinine 08/08/2024 1.14 (H) 0.40 - 1.00 mg/dL Final Glucose 08/08/2024 125 (H) 65 - 99 mg/dL Final Calcium 08/08/2024 9.8 8.5 - 10.5 mg/dL Final eGFR (CKD-EPI)non-race dependent 08/08/2024 51 (L) >59 ml/min/1.73sq.m Final Other Testing No results found. Rachael Canela DO., [facility] Phys[facility] Office: [phone] documented in this encounter [facility] 12-03-2024 History of Present illness Narrative Subjective SUBJECTIVE: Patient ID: Lesvia Ramos is a 74 y.o. female who presents for a Medicare [...] year?: No Are you worried about falling?: (!) Yes Do you feel unsteady when standing or walking?: (!) Yes Risk Stratification: Moderate Risk Depression Screening Little interest or pleasure in doing things: Not at all Feeling down, depressed, or hopeless: Not at all Trouble falling or staying asleep, or sleeping too much: (!) Several days Feeling tired or having little energy: Not [...] some way: Not at all PEG Scale What number best describes your pain on average in the past week?: 0 - No pain Safety Assessment Do you have throw rugs on the floor?: (!) Yes Do you feel safe at your home?: Yes Do you feel unsteady when walking?: (!) Yes Are you having difficulty with driving?: No Do you have trouble seeing?: No What assistive device do you use? (check all that apply): None Hearing Assessment Do you strain or struggle to hear/understand conversations?: No Do you have trouble hearing the television or radio when others do not?: No Does your family ever voice concerns about [...] Do you have a durable power of ip technology transactions attorney?: Yes Cognitive Screening Do you have trouble remembering or recalling facts or events?: (!) Yes Do family members or caregivers report that you have difficulty remembering things?: (!) Yes 6-ClT: Normal REVIEW OF SYSTEMS: Review of Systems Objective PHYSICAL EXAMINATION: Vitals: 12/03/24 1355 BP: 117/68 Weight: 58.1 kg (128 lb) Height: 161.3 cm (5' 3.5 ) Physical Exam Assessment/Plan ASSESSMENT/PLAN Lesvia was seen today for maw. Diagnoses and all orders for this visit: Encounter for subsequent annual wellness visit (AWV) in Medicare patient Chronic diastolic heart failure ([facility]) 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-induced thrombocytopenia) ([facility]) SVT (supraventricular tachycardia) ([facility]) Encounter for screening mammogram for malignant neoplasm of breast - Mammography screening bilateral with CAD; Future Return in about 1 year (around 12/03/2025). documented in this encounter [facility] 11-11-2024 Hospital Discharge instructions Patient Education 11/11/2024 13:11:28 Kidney Stones, Vaon-gy-Oyfa Kidney Stones Kidney stones are rock-like masses that form inside of the kidneys. Kidneys are organs that make pee (urine). A kidney stone may move into other parts of the urinary tract, including: The tubes that connect the kidneys to the bladder (ureters). The bladder. The tube that carries urine out of the body (urethra). Kidney stones can cause very bad pain and can block the flow of pee. The stone usually leaves your body through your pee. A doctor may need to take out the stone. What are the causes? Kidney stones may be caused by: Too much calcium in the body. This may be caused by too much parathyroid hormone in the blood. Uric acid crystals in the bladder. The body makes uric acid when you eat certain foods. Narrowing of one or both of the ureters. A kidney blockage that you were born with. Past surgery on the kidney or the ureters. What increases the risk? You are more likely to develop this condition if: You have had a kidney stone in the past. Other people in your family have had kidney stones. You do not drink enough water. You eat a diet that is high in protein, salt (sodium), or sugar. You are very overweight (obese). What are the signs or symptoms? Symptoms of a kidney stone may include: Pain in the side of the belly, right below the ribs. Pain usually spreads to the groin. Needing to pee often or right away. Pain when peeing. Blood in your pee. Feeling like you may vomit (nauseous). Vomiting. Fever and chills. How is this treated? Treatment depends on the size, location, and makeup of the kidney stones. The stones will often pass out of the body when you pee. You may need to: Drink more fluid to help pass the stone. ?In some cases, you may be given fluids through an IV tube at the hospital. Take medicine for pain. Change your diet to help keep kidney stones from coming back. Sometimes, you may need: A procedure to break up kidney stones using a beam of light (laser) or shock waves. Surgery to remove the kidney stones. Follow these instructions at home: Medicines Take nyfy-yhu-pxsifrv and prescription medicines only as told by your doctor. Ask your doctor if the medicine prescribed to you requires you to avoid driving or using machinery. Eating and drinking Drink enough fluid to keep your pee pale yellow. ?You may be told to drink at least 8 10 glasses of water each day. This will help you pass the stone. If told by your doctor, change your diet. You may be told to: ?Limit how much salt you eat. ?Eat more fruits and vegetables. ?Limit how much meat, poultry, fish, and eggs you eat. Follow instructions from your doctor about what you may eat and drink. General instructions Collect pee samples as told by your doctor. You may need to collect a pee sample: ?24 hours after a stone comes out. ?8 12 weeks after a stone comes out, and every 6 12 months after that. Strain your pee every time you pee. Use the strainer that your doctor recommends. Do not throw out the stone. Keep it so that it can be tested by your doctor. Keep all follow-up visits. You may need X-rays and ultrasounds to make sure the stone has come out. How is this prevented? To prevent another kidney stone: Drink enough fluid to keep your pee pale yellow. This is the best way to prevent kidney stones. Eat healthy foods. Avoid certain foods as told by your doctor. You may be told to eat less protein. Stay at a healthy weight. Where to find more information National Kidney Foundation (NKF): kidney.org Urology Care Foundation (UCF): urologyhealth.org Contact a doctor if: You have pain that gets worse or does not get better with medicine. Get help right away if: You have a fever or chills. You get very bad pain. You get new pain in your belly. You faint. You cannot pee. This information is not intended to replace advice given to you by your health care provider. Make sure you discuss any questions you have with your health care provider. Document Revised: 06/09/2023 Document Reviewed: 06/09/2023 [employer] Patient Education 2023 [employer]. Follow Up Care 09/04/2024 16:16:48 With:IRMA RECINOS, India Yang, URL Address: [facility] [address], [place] [id number]- [phone] When: Unknown [facility] 11-11-2024 Note Patient Education Urology Kidney Stones Kidney stones are rock-like masses that form inside of the kidneys. Kidneys are organs that make pee (urine). A kidney stone may move into other parts of the urinary tract, including: ??? The tubes that connect the kidneys to the bladder (ureters). ??? The bladder. ??? The tube that carries urine out of the body (urethra). Kidney stones can cause very bad pain and can block the flow of pee. The stone usually leaves your body through your pee. A doctor may need to take out the stone. What are the causes? Kidney stones may be caused by: ??? Too much calcium in the body. This may be caused by too much parathyroid hormone in the blood. ??? Uric acid crystals in the bladder. The body makes uric acid when you eat certain foods. ??? Narrowing of one or both of the ureters. ??? A kidney blockage that you were born with. ??? Past surgery on the kidney or the ureters. What increases the risk? You are more likely to develop this condition if: ??? You have had a kidney stone in the past. ??? Other people in your family have had kidney stones. ??? You do not drink enough water. ??? You eat a diet that is high in protein, salt (sodium), or sugar. ??? You are very overweight (obese). What are the signs or symptoms? Symptoms of a kidney stone may include: ??? Pain in the side of the belly, right below the ribs. Pain usually spreads to the groin. ??? Needing to pee often or right away. ??? Pain when peeing. ??? Blood in your pee. ??? Feeling like you may vomit (nauseous). ??? Vomiting. ??? Fever and chills. How is this treated? Treatment depends on the size, location, and makeup of the kidney stones. The stones will often pass out of the body when you pee. You may need to: ??? Drink more fluid to help pass the stone. ? In some cases, you may be given fluids through an IV tube at the hospital. ??? Take medicine for pain. ??? Change your diet to help keep kidney stones from coming back. Sometimes, you may need: ??? A procedure to break up kidney stones using a beam of light (laser) or shock waves. ??? Surgery to remove the kidney stones. Follow these instructions at home: Medicines ??? Take orgs-cnn-tpweifu and prescription medicines only as told by your doctor. ??? Ask your doctor if the medicine prescribed to you requires you to avoid driving or using machinery. Eating and drinking ??? Drink enough fluid to keep your pee pale yellow. ? You may be told to drink at least 8?10 glasses of water each day. This will help you pass the stone. ??? If told by your doctor, change your diet. You may be told to: ? Limit how much salt you eat. ? Eat more fruits and vegetables. ? Limit how much meat, poultry, fish, and eggs you eat. ??? Follow instructions from your doctor about what you may eat and drink. General instructions ??? Collect pee samples as told by your doctor. You may need to collect a pee sample: ? 24 hours after a stone comes out. ? 8?12 weeks after a stone comes out, and every 6?12 months after that. ??? Strain your pee every time you pee. Use the strainer that your doctor recommends. ??? Do not throw out the stone. Keep it so that it can be tested by your doctor. ??? Keep all follow-up visits. You may need X-rays and ultrasounds to make sure the stone has come out. How is this prevented? To prevent another kidney stone: ??? Drink enough fluid to keep your pee pale yellow. This is the best way to prevent kidney stones. ??? Eat healthy foods. ??? Avoid certain foods as told by your doctor. You may be told to eat less protein. ??? Stay at a healthy weight. Where to find more information ??? National Kidney Foundation (NKF): kidney.org ??? Urology Care Foundation (UCF): urologyhealth.org Contact a doctor if: ??? You have pain that gets worse or does not get better with medicine. Get help right away if: ??? You have a fever or chills. ??? You get very bad pain. ??? You get new pain in your belly. ??? You faint. ??? You cannot pee. This information is not intended to replace advice given to you by your health care provider. Make sure you discuss any questions you have with your health care provider. Document Revised: 06/09/2023 Document Reviewed: 06/09/2023 Elsevier Patient Education ? 2023 [employer] [facility] 11-01-2024 Miscellaneous Notes ----- Message from Dr. Rachael Canela DO sent at 11/10/2023 3:37 PM EST ----- CV recheck/thyroid recheck/lipid recheck LM on VM [facility] Telephone encounter Note ----- Message from Dr. Rachael Canela DO sent at 11/10/2023 3:37 PM EST ----- CV recheck/thyroid recheck/lipid recheck [facility]-01-[facility]24 Telephone encounter Note LM on VM [facility] 09-11-2024 Instructions Andres Boyd MD - 09/11/2024 3:03 PM EST Follow-up in 6 months Your dry weight (weight when you do not retain fluids) is 126 lbs Weigh yourself every morning. If weight is more than 5 lbs above your dry weight for 3 days in a row, take 20 mg of lasix once. Limit sodium to 1249-9398 mg /day Limit total fluid to 50-60 Oz/day documented in this encounter [facility] 09-11-2024 History of Present illness Narrative Images from the original note were not included. [facility] SECTION OF [facility]ION[facility] CARDIOLOGY OUTPATIENT VISIT DATE Sep 11, 2024 OUTPATIENT VISIT TYPE ESTABLISHED PRIMARY CARE PHYSICIAN: Rachael Canela DO [address] [place] [address] CHIEF COMPLAINT: Follow-up Last visit with me: February 2024 HISTORY OF PRESENT ILLNESS: Ms. Ramos is a 73 year old female, seen in cardiology clinic today to for follow-up. Since last visit, Doing well, no specific CV symptoms. No further palpitations. Weight has been consistent between 124-126 lbs. Had Echocardiogram today Diet: Overall well balanced. Otherwise she [...] intermittent palpitations. Moderate TR PHYSICAL EXAMINATION: BP 122/68 Pulse 66 Wt 57 kg (125 lb 10.6 oz) BMI 21.57 kg/m General: No acute distress, appears comfortable HEENT: no bruits, no JVD Pulmonary/chest: CTA b/L. CVS: Normal S1 and S2, Regular rhythm, normal rate, occasional ectopies. Soft 2/6 early systolic murmur, RUSB. Central and peripheral pulses 2+ B/L, no carotid or abdominal bruits. Abdomen: Soft, non-tender, non-distended. Bowel sounds normal Extremities: skin changes consistent with chronic venous insufficiency, wearing compressions, no edema today Neuro: AAOx4 Psych: Normal mood and affect EKG done in clinic and I personally reviewed today. Sinus rhythm, 66 bpm, APCs. Echocardiogram done today, August 2024, reviewed and discussed with patient. Normal LVEF, moderate TR, grade 1 diastolic dysfunction, normal functioning prosthetic aortic valve, normal RVSP Ambulatory monitor from December 2023 reviewed and [...] HIT Sulfa (Sulfonamide * Rash CURRENT MEDICATIONS: metoprolol succinate ER (TOPROL XL) 50 mg 24 hr tablet^take 1 tablet by mouth twice daily^Disp: 180 tablet^Rfl: 3 LATANOPROST OPHTHALMIC^Use 1 Drop in eyes once daily.^Disp: ^Rfl: Magnesium 250 mg tab^Take 250 mg by mouth once daily.^Disp: ^Rfl: spironolactone-hctz 25/25 (ALDACTAZIDE) 25-25 mg per tablet^Take 0.5 tablets by mouth once daily.^Disp: 45 tablet^Rfl: 3 atorvastatin (LIPITOR) 10 mg tablet^Take [...] 4,000 MG IN 24 HOUR PERIOD).^Disp: ^Rfl: furosemide (LASIX) 20 mg tablet^Take 1 tablet by mouth as directed. TAKE 20 MG DAILY NEEDED FOR WEIGHT INCREASE OF >5 LBS OVER 3 DAYS OR WORSENING LEG SWELLING.^Disp: 30 tablet^Rfl: 3 (Patient not taking: Reported on 09/11/2024) timolol/dorzolamide/latanop/PF (HVNCGAO-DFEJCYCUXE-YWPWBPZ,PF,) 0.5-2-0.005 % drop^Use 1 Drop in eyes every evening.^Disp: ^Rfl: (Patient not taking: Reported on 02/28/2024) IMPRESSION/RECOMMENDATIONS: S/p AVR and aortic root repair for bicuspid aortic valve 11/2014. Echocardiogram today, August 2024-LVEF around 66 %, RV is normal in size, moderate TR, normal RA pressure and normal RVSP. TR severity has improved since prior. Prosthetic aortic valve functioning well. Pre-op cath [...] SVt by monitoring. Currently controlled on BB, with occasional APCs PVCs, symptoms are currently controlled, monitoring for [...] than 5 pounds for 3 consecutive days. Has not needed this fdc. Follow-up in 6 months Your dry weight (weight when you do not retain fluids) is 126 lbs Weigh yourself every morning. If weight is more than 5 lbs above your dry weight for 3 days in a row, take 20 mg of lasix once. Limit sodium to 2786-2445 mg /day Limit total fluid to 50-60 Oz/day Andres Boyd MD documented in this encounter [facility] 09-11-2024 Note HNO ID: [id number] Author: ANDRES BOYD MD Service: ? Author Type: Physician Type: Progress Notes Filed: 09/11/2024 15:14 Note Text: [facility] CARDIOLOGY OUTPATIENT VISIT DATE Sep 11, 2024 OUTPATIENT VISIT TYPE ESTABLISHED PRIMARY CARE PHYSICIAN: Rachael Canela, [address] [place] [address] CHIEF COMPLAINT: Follow-up Last visit with me: February 2024 HISTORY OF PRESENT ILLNESS: Ms. Ramos is a 73 year old female, seen in cardiology clinic today to for follow-up. Since last visit, Doing well, no specific CV symptoms. No further palpitations. Weight has been consistent between 124-126 lbs. Had Echocardiogram today Diet: Overall well balanced. Otherwise she [...] intermittent palpitations. Moderate TR PHYSICAL EXAMINATION: BP 122/68 Pulse 66 Wt 57 kg (125 lb 10.6 oz) BMI 21.57 kg/m? General: No acute distress, appears comfortable HEENT: no bruits, no JVD Pulmonary/chest: CTA b/L. CVS: Normal S1 and S2, Regular rhythm, normal rate, occasional ectopies. Soft 2/6 early systolic murmur, RUSB. Central and peripheral pulses 2+ B/L, no carotid or abdominal bruits. Abdomen: Soft, non-tender, non-distended. Bowel sounds normal Extremities: skin changes consistent with chronic venous insufficiency, wearing compressions, no edema today Neuro: AAOx4 Psych: Normal mood and affect EKG done in clinic and I personally reviewed today. Sinus rhythm, 66 bpm, APCs. Echocardiogram done today, August 2024, reviewed and discussed with patient. Normal LVEF, moderate TR, grade 1 diastolic dysfunction, normal functioning prosthetic aortic valve, normal RVSP Ambulatory monitor from December 2023 reviewed and [...] HIT Sulfa (Sulfonamide * Rash CURRENT MEDICATIONS: metoprolol succinate ER (TOPROL XL) 50 mg 24 hr tablettake 1 tablet by mouth twice dailyDisp: 180 tabletRfl: 3 LATANOPROST OPHTHALMICUse 1 Drop in eyes once daily.Disp: Rfl: Magnesium 250 mg tabTake 250 mg by mouth once daily.Disp: Rfl: spironolactone-hctz 25/25 (ALDACTAZIDE) 25-25 mg per tabletTake 0.5 tablets by mouth once daily.Disp: 45 tabletRfl: 3 atorvastatin (LIPITOR) 10 mg tabletTake [...] 4,000 MG IN 24 HOUR PERIOD).Disp: Rfl: furosemide (LASIX) 20 mg tabletTake 1 tablet by mouth as directed. TAKE 20 MG DAILY NEEDED FOR WEIGHT INCREASE OF >5 LBS OVER 3 DAYS OR WORSENING LEG SWELLING.Disp: 30 tabletRfl: 3 (Patient not taking: Reported on 09/11/2024) timolol/dorzolamide/latanop/PF ([id number],PF,) 0.5-2-0.005 % dropUse 1 Drop in eyes every evening.Disp: Rfl: (Patient not (more content not included)... [facility] 08-30-2024 History of Present illness Narrative Physical Therapy Treatment Visit / DISCHARGE Patient Name: Lesvia Yusuf Today's Date: 08/30/2024 Encounter Diagnoses Name Primary? Sciatica, left side Yes Visit number: 5 Timed Code Treatment Minutes: 40 minutes Total Treatment Time: 54 minutes Time In: 0700 Time Out: 0800 History: Pt states she has been having sciatic pain on and off for quite some time. Not sure what sets pain off when it does occur. Pt states she has been doing stretches from Dr before going to bed; states only time she really has pain is when she is sleeping. Pain is felt more left hip/thigh region and goes down leg. States she will also get tingling down left LE. Pt states she sleeps on her right side. Pt states she wakes after a few hours and will walk around to decrease pain. She will then go sleep in recliner and is able to sleep the rest of the night. Pt states she has tried pillow but states it was awkward and caused her not to sleep. Pt states she really doesn't have any pain or sx's during the day. Pt states she will walk for exercise and doesn't really have any issues with walking (about 1 mile). Precautions: [place], osteopenia Subjective: Pt states she has been trying to sleep with wedge. Pt states overall, she has not noticed any significant change in sleeping at night. Has also been doing stretches just prior to going to bed with no significant change. Pain: 0/10 Objective: PT Evaluation (08/15/2024) LUMBAR SPINE AROM: full flexion without ERP, ext WFL without ERP, no pain end range bilateral SB Strength: left hip 4-/5, right hip 4 to 4+/5 Palpation: no significant tenderness left piriformis or ITB Special Test: repeated motion testing negative flexion and extension; negative SLR and slump; negative sign of the buttock; negative left hip scour and ENRIQUE Neurological: Reflexes: 2 bilateral patellar Myotomes: negative Dermatomes: negative Special Test: negative clonus Treatment: Education: HEP education with demonstration, Educated on Eval Findings and POC Manual Therapy: (5 minutes - no charge) Passive ROM, Joint mobilization, Soft Tissue Mobilization, Myofascial Release, Muscle Energy Technique, Neural Mobilization, Myofascial Cupping, Dry Needling, IASTM, and Scar mobilization as needed. IDN with static placement to lower lumbar region bilateral. Therapeutic Exercise: (40 minutes) Strength, Endurance, Flexibility, ROM, HEP, Neural Mobilization, Power, and Core Stability as needed. Reviewed HEP and sleeping positions; re-assessed for discharge. Therapeutic Activity: Exercises to improve dynamic activities, functional tasks, functional mobility to return to prior activity level as needed. Neuromuscular re-education: Balance Training, Muscle Facilitation, Dynamic Stability, Core Stabilization, and Blood Flow Restriction Training (BFRT) as needed. Modalities: Heat, Ice, Electrical Stimulation, Ultrasound, Cervical Mechanical Traction, Lumbar Mechanical Traction, Iontophoresis, and Fluidotherapy as needed. HP to low back pain in supine x 10 mins post session. Assessment: Pt has completed 5 PT session for left LE pain. Pt continues to report inability to sleep through the night due to left LE pain and tingling. Pt purchased wedge to support LE's during the night without significant change in sx's. Pt is performing home program prior to going to bed; again, no change noted with sx's. Although pt states she feels good on therapy days, there has been no change in her chief complaint of left LE pain at night. Unable to reproduce sx's with repeated motion testing in the clinic. No reproduction of sx's noted with left hip scour or ENRIQUE. We will now discharge PT. Believe imaging is appropriate at this time and possible consult with Pain Management. Outcome Measure: Lower Extremity Functional Scale (LEFS): 78/80 Rehab Diagnosis: left LE pain, left hip weakness Short Term Goal: To be met in 2 weeks Goal 1: Pt to be instructed in home exercise program. - met Licensed [employer] Goals: To be met in 10 weeks Goal 1: Pt to report independence and compliance with home program. - met Goal 2: Pt to report pain no greater than 1/10 with sleeping at night. - not met Goal 3: Pt to achieve 4 to 4+/5 strength left hip to assist with functional mobility. - not met Goal 4: Pt to report decrease sx's by 90% when sleeping at night. - not met Discharge to home program. documented in this encounter [facility] 08-23-2024 Telephone encounter Note The following approved medication requests have been transmitted electronically. Requested Prescriptions Signed Prescriptions Disp Refills metoprolol succinate ER (TOPROL XL) 50 mg 24 hr tablet 180 tablet 3 Sig: take 1 tablet by mouth twice daily Authorizing Provider: ANDRES BOYD Ordering User: NITZA MAE APRN.CNP [facility] Work Phone: 08-23-2024 Miscellaneous Notes The following approved medication requests have been transmitted electronically. Requested Prescriptions Signed Prescriptions Disp Refills metoprolol succinate ER (TOPROL XL) 50 mg 24 hr tablet 180 tablet 3 Sig: take 1 tablet by mouth twice daily Authorizing Provider: ANDRES BOYD Ordering User: NITZA MAE APRN.CNP Received request for refill of the following medications: Requested Prescriptions Pending Prescriptions Disp Refills metoprolol succinate ER (TOPROL XL) 50 mg 24 hr tablet [Pharmacy Med Name: metoprolol succinate ER 50 mg tablet,extended release 24 hr] 180 tablet 3 Sig: take 1 tablet by mouth twice daily Patient requested a 90 day refill. Pharmacy verified and updated accordingly. Patient was last seen in cardiology office: 02/28/24. Upcoming appointment scheduled: 09/11/24. Labs: Hemoglobin (g/dL) Date Value 06/27/2023 15.2 06/29/2021 15.7 Hematocrit (%) Date Value 06/27/2023 46.3 06/29/2021 48.6 WBC (k/uL) Date Value 06/27/2023 6.26 06/29/2021 6.10 Platelet Count (k/uL) Date Value 06/27/2023 144 06/29/2021 172 Creatinine Date Value Ref Range Status 01/17/2024 0.97 (H) 0.58 - 0.96 mg/dL Final 12/27/2023 1.09 (H) 0.58 - 0.96 mg/dL Final documented in this encounter [facility] 08-23-2024 Telephone encounter Note Received request for refill of the following medications: Requested Prescriptions Pending Prescriptions Disp Refills metoprolol succinate ER (TOPROL XL) 50 mg 24 hr tablet [Pharmacy Med Name: metoprolol succinate ER 50 mg tablet,extended release 24 hr] 180 tablet 3 Sig: take 1 tablet by mouth twice daily Patient requested a 90 day refill. Pharmacy verified and updated accordingly. Patient was last seen in cardiology office: 02/28/24. Upcoming appointment scheduled: 09/11/24. Labs: Hemoglobin (g/dL) Date Value 06/27/2023 15.2 06/29/2021 15.7 Hematocrit (%) Date Value 06/27/2023 46.3 06/29/2021 48.6 WBC (k/uL) Date Value 06/27/2023 6.26 06/29/2021 6.10 Platelet Count (k/uL) Date Value 06/27/2023 144 06/29/2021 172 Creatinine Date Value Ref Range Status 01/17/2024 0.97 (H) 0.58 - 0.96 mg/dL Final 12/27/2023 1.09 (H) 0.58 - 0.96 mg/dL Final [facility] 08-21-2024 History of Present illness Narrative Physical Therapy Evaluation Visit Patient Name: Lesvia Yusuf Today's Date: 08/21/2024 Encounter Diagnoses Name Primary? Sciatica, left side Yes Acute pain of left shoulder Visit number: 2 Timed Code Treatment Minutes: 39 minutes Total Treatment Time: 45 minutes Time In: 1057 Time Out: 1159 History: Pt states she has been having sciatic pain on and off for quite some time. Not sure what sets pain off when it does occur. Pt states she has been doing stretches from Dr before going to bed; states only time she really has pain is when she is sleeping. Pain is felt more left hip/thigh region and goes down leg. States she will also get tingling down left LE. Pt states she sleeps on her right side. Pt states she wakes after a few hours and will walk around to decrease pain. She will then go sleep in recliner and is able to sleep the rest of the night. Pt states she has tried pillow but states it was awkward and caused her not to sleep. Pt states she really doesn't have any pain or sx's during the day. Pt states she will walk for exercise and doesn't really have any issues with walking (about 1 mile). Precautions: [place], osteopenia Subjective: pain in left LE when present Pain: 2-3/10 Objective: PT Evaluation (08/15/2024) LUMBAR SPINE AROM: full flexion without ERP, ext WFL without ERP, no pain end range bilateral SB Strength: left hip 4-/5, right hip 4 to 4+/5 Palpation: no significant tenderness left piriformis or ITB Special Test: repeated motion testing negative flexion and extension; negative SLR and slump; negative sign of the buttock; negative left hip scour and ENRIQUE Neurological: Reflexes: 2 bilateral patellar Myotomes: negative Dermatomes: negative Special Test: negative clonus Treatment: Education: HEP education with demonstration, Educated on Eval Findings and POC Manual Therapy: (16 minutes) Passive ROM, Joint mobilization, Soft Tissue Mobilization, Myofascial Release, Muscle Energy Technique, Neural Mobilization, Myofascial Cupping, Dry Needling, IASTM, and Scar mobilization as needed. IDN with 3 inch needles to left buttock in prone with static placement (5 mins no charge). Manual lumbar distraction with ku[place]i ball in supine. Long axis distraction to left LE in supine with good brian. Therapeutic Exercise: (23 minutes) Strength, Endurance, Flexibility, ROM, HEP, Neural Mobilization, Power, and Core Stability as needed. Reviewed home program with good pt understanding. Discussed sleeping positions again this date. Pt instructed in and demo's supine positioning with knees supported. Therapeutic Activity: Exercises to improve dynamic activities, functional tasks, functional mobility to return to prior activity level as needed. Neuromuscular re-education: Balance Training, Muscle Facilitation, Dynamic Stability, Core Stabilization, and Blood Flow Restriction Training (BFRT) as needed. Modalities: Heat, Ice, Electrical Stimulation, Ultrasound, Cervical Mechanical Traction, Lumbar Mechanical Traction, Iontophoresis, and Fluidotherapy as needed. HP to low back pain in supine x 6 mins prior to and during manual therapy. Assessment: Pt has completed 2 PT session for left LE pain. Still unable to reproduce sx's; however, pt did report some N/T in left LE with prone lying after approx 4 mins. Will monitor response to treatment and pt will try sleeping supine with knee supported. Outcome Measure: Lower Extremity Functional Scale (LEFS): 78/80 Rehab Diagnosis: left LE pain, left hip weakness Short Term Goal: To be met in 2 weeks Goal 1: Pt to be instructed in home exercise program. Licensed [employer] Goals: To be met in 10 weeks Goal 1: Pt to report independence and compliance with home program. Goal 2: Pt to report pain no greater than 1/10 with sleeping at night. Goal 3: Pt to achieve 4 to 4+/5 strength left hip to assist with functional mobility. Goal 4: Pt to report decrease sx's by 90% when sleeping at night. Pt will benefit from skilled PT for 2x/week from 08/15/2024 to 10/24/2024 to address the above impairments. I hereby deem this POC medically necessary. Please sign below. Date: documented in this encounter [facility] 08-15-2024 History of Present illness Narrative Physical Therapy Evaluation Visit Patient Name: Lesvia Yusuf Today's Date: 08/15/2024 Encounter Diagnoses Name Primary? Sciatica, left side Yes Visit number: 1 Timed Code Treatment Minutes: 56 minutes Total Treatment Time: 56 minutes Time In: 929 Time Out: 1026 History: Pt states she has been having sciatic pain on and off for quite some time. Not sure what sets pain off when it does occur. Pt states she has been doing stretches from Dr before going to bed; states only time she really has pain is when she is sleeping. Pain is felt more left hip/thigh region and goes down leg. States she will also get tingling down left LE. Pt states she sleeps on her right side. Pt states she wakes after a few hours and will walk around to decrease pain. She will then go sleep in recliner and is able to sleep the rest of the night. Pt states she has tried pillow but states it was awkward and caused her not to sleep. Pt states she really doesn't have any pain or sx's during the day. Pt states she will walk for exercise and doesn't really have any issues with walking (about 1 mile). Precautions: [place], osteopenia Subjective: pain in left LE when present Pain: 2-3/10 Objective: PT Evaluation (08/15/2024) LUMBAR SPINE AROM: full flexion without ERP, ext WFL without ERP, no pain end range bilateral SB Strength: left hip 4-/5, right hip 4 to 4+/5 Palpation: no significant tenderness left piriformis or ITB Special Test: repeated motion testing negative flexion and extension; negative SLR and slump; negative sign of the buttock; negative left hip scour and ENRIQUE Neurological: Reflexes: 2 bilateral patellar Myotomes: negative Dermatomes: negative Special Test: negative clonus Treatment: Education: HEP education with demonstration, Educated on Eval Findings and POC Manual Therapy: Passive ROM, Joint mobilization, Soft Tissue Mobilization, Myofascial Release, Muscle Energy Technique, Neural Mobilization, Myofascial Cupping, Dry Needling, IASTM, and Scar mobilization as needed. Therapeutic Exercise: (24 minutes) Strength, Endurance, Flexibility, ROM, HEP, Neural Mobilization, Power, and Core Stability as needed. Pt performed and instructed in home program this date; written instructions and pictures issued with good pt understanding following visual and tactile instructions. Therapeutic Activity: Exercises to improve dynamic activities, functional tasks, functional mobility to return to prior activity level as needed. Neuromuscular re-education: Balance Training, Muscle Facilitation, Dynamic Stability, Core Stabilization, and Blood Flow Restriction Training (BFRT) as needed. Modalities: Heat, Ice, Electrical Stimulation, Ultrasound, Cervical Mechanical Traction, Lumbar Mechanical Traction, Iontophoresis, and Fluidotherapy as needed. Assessment: Pt is 73 y/o female with complaints of left LE numbness and tingling. Pt states pain is only present at night when sleeping. Limited left hip strength. Pt instructed in home program; will monitor response next week. Outcome Measure: Lower Extremity Functional Scale (LEFS): 78/80 Rehab Diagnosis: left LE pain, left hip weakness Short Term Goal: To be met in 2 weeks Goal 1: Pt to be instructed in home exercise program. Licensed [employer] Goals: To be met in 10 weeks Goal 1: Pt to report independence and compliance with home program. Goal 2: Pt to report pain no greater than 1/10 with sleeping at night. Goal 3: Pt to achieve 4 to 4+/5 strength left hip to assist with functional mobility. Goal 4: Pt to report decrease sx's by 90% when sleeping at night. Pt will benefit from skilled PT for 2x/week from 08/15/2024 to 10/24/2024 to address the above impairments. I hereby deem this POC medically necessary. Please sign below. Date: documented in this encounter [facility] 08-08-2024 History of Present illness Narrative IM PROGRESS NOTE Patient - Lesvia Ramos Age - 73 y.o. - 1950 ASSESSMENT & PLAN 1. Petechiae or ecchymoses -very limited area of petechia which are asymptomatic -I suspect this may be traumatic in nature from unknown source -however need to check for underlying platelet abnormalities, or potentially platelet dysfunction related to thiazide diuretic or hypothyroidism -labs obtained today. - Basic Metabolic Panel; Future - CBC auto differential; Future -further recommendations following results of testing -in meantime, no aspirin products, and avoid trauma to the area 2. Sciatica of left side -ongoing problem which has worsened despite attempts at HEP -referral to physical therapy - Ambulatory referral to Physical Therapy (Non[facility]); Future 3. Hypothyroidism, unspecified type -repeat TSH T4 to evaluate efficacy of current replacement therapy - Thyroid profile includes TSH FT4; Future Subjective 73-year-old female presents for evaluation of a rash that she has noticed on her medial left breast, and to a lesser extent on the medial right breast for the past 2 weeks. It is not painful or pruritic. She noticed it incidentally when she was getting dressed. Does not recall any trauma to the area. Is not taking aspirin products. 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 She has not tried treating it with any topical lotions. Has never noticed any problem like this in the past. A review of systems was negative except for the following: Musculoskeletal: Having recurrent sciatica in the left leg. When she lies on her right side, or sits too long, will feel sharp, stabbing, burning sensation radiating from her left buttock down the back of her left leg. Often will come on while sleeping. If she moves to a lazy boy recliner, and sits in a semi recumbent position, the discomfort will go away. Tried HEP for time, which helped but did not make the discomfort go away. She denies any falls, bowel or bladder changes or incontinence.. Exam BP 102/68 (BP Site: Left Arm, BP Postition: Sitting) Pulse 89 Temp 36.1 C (97 F) (Tympanic) Ht 162.6 cm (5' 4 ) Wt 56.2 kg (123 lb 12.8 oz) SpO2 99% BMI 21.25 kg/m Physical Exam Vitals reviewed. Constitutional: General: She is not in acute distress. Appearance: She is normal weight. She is not toxic-appearing. HENT: Head: Normocephalic. Right Ear: External ear normal. Left Ear: External ear normal. Ears: Comments: Mild hearing loss bilateral Eyes: General: No scleral icterus. Cardiovascular: Rate and Rhythm: Normal rate and regular rhythm. Pulses: Normal pulses. Dorsalis pedis pulses are 2+ on the right side and 2+ on the left side. Posterior tibial pulses are 2+ on the right side and 2+ on the left side. Heart sounds: No murmur (4/6 systolic murmur 2nd right interspace, left lower sternal border and apex) heard. Pulmonary: Effort: Pulmonary effort is normal. Breath sounds: No wheezing or rales. Abdominal: Palpations: Abdomen is soft. Comments: No splenomegaly Musculoskeletal: General: Tenderness (at base of left buttock and lateral left leg 6 inches below the greater trochanter) present. Right lower leg: No edema. Left lower leg: No edema. Comments: Has pain with external rotation of the left lower extremity Lymphadenopathy: Cervical: Cervical adenopathy present. Skin: General: Skin is warm and dry. Capillary Refill: Capillary refill takes less than 2 seconds. Coloration: Skin is not jaundiced. Comments: A few small scattered petechiae were noted on the medial left breast, and medial right breast. No dermatographism or distinct pattern noted. No similar lesions noted on her trunk or back or abdomen. Neurological: Mental Status: She is alert and oriented to person, place, and time. Sensory: No sensory deficit (No loss of pinprick sensation in the L4, L5 or S1 dermatome of the left leg). Gait: Gait abnormal (limping favoring left leg). Comments: Positive seated straight leg raising on the left. Meds Current Outpatient Medications: acetaminophen (TYLENOL) 325 mg tablet, Take 2 tablets (650 mg total) by mouth., Disp: , Rfl: atorvastatin (LIPITOR) 10 mg tablet, take 1 tablet by mouth daily, Disp: 90 tablet, Rfl: 0 hydroCHLOROthiazide (MICROZIDE) 12.5 mg capsule, Take 1 capsule (12.5 mg total) by mouth daily., Disp: , Rfl: latanoprost (XALATAN) 0.005 % ophthalmic solution, Refill(s) 0, Disp: , Rfl: levothyroxine (SYNTHROID, LEVOTHROID) 75 MCG tablet, take 1 tablet by mouth daily, Disp: 90 tablet, Rfl: 1 metoprolol succinate XL (TOPROL XL) 50 mg 24 hr tablet, Take 1 tablet (50 mg total) by mouth in the morning and 1 tablet (50 mg total) before bedtime., Disp: , Rfl: Lab Results Other Testing No results found. Rachael Canela DO., [facility] Office: [phone] documented in this encounter [facility] 06-18-2024 Hospital Discharge instructions Patient Education 06/18/2024 09:12:18 Urinary Incontinence Urinary Incontinence Urinary incontinence refers to a condition in which a person is unable to control where and when to pass urine. A person with this condition will urinate involuntarily. This means that the person urinates when he or she does not mean to. What are the causes? This condition may [...] anxiety, stress, or post-traumatic stress disorder (PTSD). Spinal cord injury, nerve injury, or other neurological conditions. Pelvic organ prolapse. This happens in women when organs move out of place and into the vagina. This movement can prevent the bladder and urethra from working properly. What increases the risk? The following factors may make you more likely to develop this condition: Age. The older you are, the higher the risk. Obesity. Being physically inactive. and childbirth. Menopause. Diseases that affect the nerves or spinal cord. Long-term, or chronic, coughing. This can increase pressure on the bladder and pelvic floor muscles. What are the signs or symptoms? Symptoms may vary depending on the type of urinary incontinence you have. They include: A sudden urge to urinate, and passing urine involuntarily before you can get to a bathroom (urge incontinence). Suddenly passing urine when doing activities that force urine to pass, such as coughing, laughing, exercising, or sneezing (stress incontinence). Needing to urinate often but urinating only a small amount, or constantly dribbling urine (overflow incontinence). Urinating because you cannot get to the bathroom in time due to a physical disability, such as arthritis or injury, or due to a communication or thinking problem, such as Alzheimer's disease (functional incontinence). How is this diagnosed? This condition may be diagnosed based on: Your medical history. A physical exam. Tests, such as: ?Urine tests. ?X-rays of your kidney and bladder. ?Ultrasound. ?CT scan. ?Cystoscopy. In this procedure, a health care provider inserts a tube with a light and camera (cystoscope) through the urethra and into the bladder to check for problems. ?Urodynamic testing. These [...] caffeine you drink. ?Increase your fiber intake. Healthy sources of fiber include beans, whole grains, and fresh fruits and vegetables. Behavioral changes, such as: ?Pelvic floor muscle exercises. ?Bladder training, such as lengthening the amount of time between bathroom breaks, or using the bathroom at regular intervals. ?Using techniques to suppress bladder urges. This can include distraction techniques or controlled breathing exercises. Medicines, such as: ?Medicines to relax the bladder muscles and prevent bladder spasms. ?Medicines to help slow or prevent the growth of a man's prostate. ?Botox injections. These can help relax the bladder muscles. Treatments, such as: ?Using pulses of electricity to help change bladder reflexes (electrical nerve stimulation). ?For women, using a medical esthetician to prevent urine leaks. This is a small, tampon-like, disposable device that is inserted into the urethra. ?Injecting collagen or carbon beads (bulking agents) into the urinary sphincter. These can help thicken tissue and close the bladder opening. ?Surgery. Follow these instructions at home: Lifestyle Limit alcohol and caffeine. These can fill your bladder quickly and irritate it. Keep yourself clean to help prevent odors and skin damage. Ask your health care provider about special skin creams and cleansers that can protect the skin from urine. Consider wearing pads or adult diapers. Make sure to change them regularly, and always change them right after experiencing incontinence. General instructions Take [id number] and prescription medicines only as told by [...] go to the bathroom. Keep all follow-up visits. This is important. Where to find more information [facility] [place] of Diabetes and Digestive and Kidney Diseases: www.niddk.nih.gov [employer]: www.urologyhealth.org Contact a health care provider if: [...] of the prostate (in men), or surgery. Factors such as older age, obesity, and childbirth, menopause, neurological diseases, and chronic coughing may increase your risk for developing this condition. Types of urinary incontinence include urge incontinence, stress incontinence, overflow incontinence, [...] with your health care provider. Document Revised: 05/21/2021 Document Reviewed: 05/21/2021 Ed[employer]kame Patient Education 2022 ADOR. Follow Up Care 05/14/2024 14:01:27 With:DAT Bustillos APRN, DONNA Yo, URL Address: When: Unknown Comments:PHILOMENA [facility] Note Patient Education Urology Urinary Incontinence Urinary incontinence refers to a condition in which a person is unable to control where and when to pass urine. A person with this condition will urinate involuntarily. This means that the person urinates when he or she does not mean to. What are the causes? This condition may [...] stress, or post-traumatic stress disorder (PTSD). ? Spinal cord injury, nerve injury, or other neurological conditions. ? Pelvic organ prolapse. This happens in women when organs move out of place and into the vagina. This movement can prevent the bladder and urethra from working properly. What increases the risk? The following factors may make you more likely to develop this condition: ? Age. The older you are, the higher the risk. ? Obesity. ? Being physically inactive. ? and childbirth. ? Menopause. ? Diseases that affect the nerves or spinal cord. ? Long-term, or chronic, coughing. This can increase pressure on the bladder and pelvic floor muscles. What are the signs or symptoms? Symptoms may vary depending on the type of urinary incontinence you have. They include: ? A sudden urge to urinate, and passing urine involuntarily before you can get to a bathroom (urge incontinence). ? Suddenly passing urine when doing activities that force urine to pass, such as coughing, laughing, exercising, or sneezing (stress incontinence). ? Needing to urinate often but urinating only a small amount, or constantly dribbling urine (overflow incontinence). ? Urinating because you cannot get to the bathroom in time due to a physical disability, such as arthritis or injury, or due to a communication or thinking problem, such as Alzheimer's disease (functional incontinence). How is this diagnosed? [...] through the urethra and into the bladder to check for problems. ? Urodynamic testing. [...] you drink. ? Increase your fiber intake. Healthy sources of fiber include beans, whole grains, and fresh fruits and vegetables. ? Behavioral changes, such as: ? Pelvic floor muscle exercises. ? Bladder training, such as lengthening the amount of time between bathroom breaks, or using the bathroom at regular intervals. ? Using techniques to suppress bladder urges. This can include distraction techniques or controlled breathing exercises. ? Medicines, such as: ? Medicines to relax the bladder muscles and prevent bladder spasms. ? Medicines to help slow or prevent the growth of a man's prostate. ? Botox injections. These can help relax the bladder muscles. ? Treatments, such as: ? Using pulses of electricity to help change bladder reflexes (electrical nerve stimulation). ? For women, using a medical esthetician to prevent urine leaks. This is a [...] prevent odors and skin damage. Ask your health care provider about special skin creams and cleansers that can protect the (more content not included)... [facility] 05-28-2024 Miscellaneous Notes Preoperative Education Checklist- General Surgery date: 05/29/24 Surgery time: 1000 Arrival time: 0900 1. Bring a photo ID and your insurance card with you the day of surgery. You will check in at the main lobby of the [facility]- registration desk is straight ahead as soon as you walk in. Tell them you are here for surgery. 2. If you have a Living Will/Durable Power of Precision Machinist for Health Care that is not on file here, please bring a copy the day of surgery. 3. Please shower/bathe the night before surgery with the provided soap or wipes. Do not shower the morning of surgery- you will do use wipes when you arrive here at the hospital before getting into your surgical gown. Do not shave the area of your procedure for 2 days prior to your surgery. 4. NO powder, lotion, perfume/cologne, aftershave, make-up, deodorant, or hair products after you have bathed. 5. NO nail stateless/acrylic on at least one finger. If you are having a hand, wrist or foot surgery then all nail stateless and artificial/acrylic nails must be removed from that hand or foot. 6. Avoid ALL Aspirin and non-steroidal anti-inflammatory drugs and certain vitamins (Ibuprofen, Advil, Aleve, Excedrin, Meloxicam, Celebrex, fish/krill oil, etc.) for 7 days prior to surgery as instructed by your surgeon and/or your prescribing doctor. Tylenol IS ALLOWED. If you are on Ticlid, Xarelto, Eliquis, Pradaxa, Plavix or Coumadin, please check with your prescribing doctor for instructions for when to stop them. 7. If you use an inhaler, continue to use it routinely. 8. Nothing to eat or drink (not even water, gum, mints, or hard candy!) AFTER midnight prior to your surgery. 9. Take only medications that you are instructed to on the morning of surgery with a TINY SIP OF WATER. 10. Choose a responsible adult that will be able to drive you home when you are discharged from your hospital stay for your surgery and can stay with you in your home for 24 hours after your procedure. You must NOT drive any vehicle or operate any machinery for 24 hours after surgery. 11. When you dress for your appointment, please wear loose fitting clothing that is appropriate to accommodate your surgical area procedure. BRING WITH YOU ANY DEVICES YOU MAY NEED: TANYA hose, ice machine, sling/swath, brace or special shoe, oversized zip-up or button up shirt, CPAP machine if staying overnight. 12. Do NOT wear jewelry, watches, or any piercings or metal for surgery- leave these valuables and money at home. 13. Do NOT wear contact lenses for surgery- glasses are okay if needed. 14. The anesthesiologist will talk with you the day of surgery and will ask you to sign a Consent Form. 15. Refrain from smoking or any type of tobacco use for at least 8 hours and marijuana for 24 hours prior to arrival for your surgery. 16. If a GREEN BLOOD band is given to you, please bring it with you for the day of surgery. 17. Notify your surgeon if you develop any illness before your surgery. 18. If you are staying overnight, please DO NOT BRING your home medications with you. 19. If you have any questions prior to surgery, please call the Preadmission Testing office at [phone], Mon.-Fri. 7 a.m.-3 p.m. Leave a voicemail if needed. Pre-Surgery Instructions: Medication Instructions acetaminophen (TYLENOL) 325 mg tablet Stop taking 0 days prior to procedure atorvastatin (LIPITOR) 10 mg tablet Stop taking 0 days prior to procedure hydroCHLOROthiazide (MICROZIDE) 12.5 mg capsule Stop taking 0 days prior to procedure latanoprost (XALATAN) 0.005 % ophthalmic solution Stop taking 0 days prior to procedure levothyroxine (SYNTHROID, LEVOTHROID) 75 MCG tablet Take morning of procedure metoprolol succinate XL (TOPROL XL) 50 mg 24 hr tablet Take morning of procedure sod sulf-pot chloride-mag sulf 1.479-0.188- 0.225 gram tablet Stop taking 0 days prior to procedure documented in this encounter [facility] 05-28-2024 Nurse Note Preoperative Education Checklist- General Surgery date: 05/29/24 Surgery time: 1000 Arrival time: 0900 1. Bring a photo ID and your insurance card with you the day of surgery. You will check in at the main lobby of the [facility]- registration desk is straight ahead as soon as you walk in. Tell them you are here for surgery. 2. If you have a Living Will/Durable Power of Precision Machinist for Health Care that is not on file here, please bring a copy the day of surgery. 3. Please shower/bathe the night before surgery with the provided soap or wipes. Do not shower the morning of surgery- you will do use wipes when you arrive here at the hospital before getting into your surgical gown. Do not shave the area of your procedure for 2 days prior to your surgery. 4. NO powder, lotion, perfume/cologne, aftershave, make-up, deodorant, or hair products after you have bathed. 5. NO nail stateless/acrylic on at least one finger. If you are having a hand, wrist or foot surgery then all nail stateless and artificial/acrylic nails must be removed from that hand or foot. 6. Avoid ALL Aspirin and non-steroidal anti-inflammatory drugs and certain vitamins (Ibuprofen, Advil, Aleve, Excedrin, Meloxicam, Celebrex, fish/krill oil, etc.) for 7 days prior to surgery as instructed by your surgeon and/or your prescribing doctor. Tylenol IS ALLOWED. If you are on Ticlid, Xarelto, Eliquis, Pradaxa, Plavix or Coumadin, please check with your prescribing doctor for instructions for when to stop them. 7. If you use an inhaler, continue to use it routinely. 8. Nothing to eat or drink (not even water, gum, mints, or hard candy!) AFTER midnight prior to your surgery. 9. Take only medications that you are instructed to on the morning of surgery with a TINY SIP OF WATER. 10. Choose a responsible adult that will be able to drive you home when you are discharged from your hospital stay for your surgery and can stay with you in your home for 24 hours after your procedure. You must NOT drive any vehicle or operate any machinery for 24 hours after surgery. 11. When you dress for your appointment, please wear loose fitting clothing that is appropriate to accommodate your surgical area procedure. BRING WITH YOU ANY DEVICES YOU MAY NEED: TANYA hose, ice machine, sling/swath, brace or special shoe, oversized zip-up or button up shirt, CPAP machine if staying overnight. 12. Do NOT wear jewelry, watches, or any piercings or metal for surgery- leave these valuables and money at home. 13. Do NOT wear contact lenses for surgery- glasses are okay if needed. 14. The anesthesiologist will talk with you the day of surgery and will ask you to sign a Consent Form. 15. Refrain from smoking or any type of tobacco use for at least 8 hours and marijuana for 24 hours prior to arrival for your surgery. 16. If a GREEN BLOOD band is given to you, please bring it with you for the day of surgery. 17. Notify your surgeon if you develop any illness before your surgery. 18. If you are staying overnight, please DO NOT BRING your home medications with you. 19. If you have any questions prior to surgery, please call the Preadmission Testing office at [phone], Mon.-Fri. 7 a.m.-3 p.m. Leave a voicemail if needed. Pre-Surgery Instructions: Medication Instructions acetaminophen (TYLENOL) 325 mg tablet Stop taking 0 days prior to procedure atorvastatin (LIPITOR) 10 mg tablet Stop taking 0 days prior to procedure hydroCHLOROthiazide (MICROZIDE) 12.5 mg capsule Stop taking 0 days prior to procedure latanoprost (XALATAN) 0.005 % ophthalmic solution Stop taking 0 days prior to procedure levothyroxine (SYNTHROID, LEVOTHROID) 75 MCG tablet Take morning of procedure metoprolol succinate XL (TOPROL XL) 50 mg 24 hr tablet Take morning of procedure sod sulf-pot chloride-mag sulf 1.479-0.188- 0.225 gram tablet Stop taking 0 days prior to [facility] Instructions Andres Boyd MD - 02/28/2024 2:04 PM EDT Your dry weight (weight when you do not retain fluids) is 126 lbs Weigh yourself every morning. If weight is more than 5 lbs above your dry weight for 3 days in a row, take 20 mg of lasix once. Limit sodium to 7260-9884 mg /day Limit total fluid to 50-60 Oz/day documented in this encounter [facility] 02-28-2024 History of Present illness Narrative Images from the original note were not included. 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 Limit sodium to 3399-3728 mg /day Limit total fluid to 50-60 Oz/day Andres Boyd MD documented in this encounter [facility] 12-28-2023 Miscellaneous Notes Agree with recommendation. Continue [...] Alternative to the Farxiga? 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 She stopped taking her HCTZ as directed.. I told her to go ahead and start the Aldactone/hydrochlorothiazide ...(unless Provider advises otherwise) ... Please update pt with what you prescribe in place of Farxiga, thanks Try [phone] land line (first) Then CELL [phone] vmx/mycharts are okay documented in this encounter [facility] 12-28-2023 Miscellaneous Notes Duplicate Zena is calling Andres Boyd MD today with concern regarding Medication Problem Patient has been identified by name and birthdate. Duration of symptoms: N/A Person calling: self Call patient at: at home [phone] (home) [phone] (cell) Was an appointment scheduled: No Patient medication is not cover by her insurance for the Farxiga ,can Dr. Boyd find another medication that maybe lower cost and on her insurance plan . Thank you so much Closing statement: Renetta CLARK documented in this encounter [facility] 12-27-2023 Nurse Note EVENT MONITOR DISPOSABLE PATCH INSTRUCTIONS Patient Name: Lesvia Ramos [facility] Number: [id number] Skin prepped and cleansed with alcohol Patch secured to prepped area Monitor Activated Serial #: [id number] Patient Instructed: Prescribed order timeframe Bathing guidelines Usage of event button and diary documentation Return of monitor at the end of prescribed order Call with problems [phone] or [phone] ext. [phone] Patient expresses a good understanding of instructions Chyna White MA documented in this encounter [facility] 12-27-2023 Instructions Andres Boyd MD - 12/27/2023 10:17 AM EST Blood work today STOP Hydrochlorothiaze Start Aldactazide 25-25 mg -Half tablet daily in the morning Start Farxiga 5 mg (if reasonable copay) Repeat blood work in 3 weeks Monitor today for 2 weeks See you again in 8-9 weeks. Andres Boyd MD documented in this encounter [facility] 12-27-2023 History of Present illness Narrative Images from the original note were not included. 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 documented in this encounter [facility] [employer] 11-28-2023 Hospital Discharge instructions Patient Education 11/28/2023 [...] Follow these instructions at home: Medicines Take mxvy-zmm-ssdkxfs and prescription medicines only as told by [...] provider. Document Revised: 01/25/2023 Document Reviewed: 01/25/2023 [employer] Patient Education 2022 ADOR. 11/28/2023 11:47:52 Dietary Guidelines to Help Prevent [...] include: ?8 oz (237 mL) of milk, mkvyysc-xssxnhgxycma-vuewg milk, and calcium-fortifiedfruit juice. Calcium-fortified means that [...] ?Spinach (cooked), rhubarb, beets, sweet potatoes, and Sudanese chard. ?Peanuts. ?Potato chips, tajik fries, and baked potatoes with skin on. ?Nuts and nut products. ?Chocolate. If you regularly take a diuretic medicine, make sure to eat at least 1 or 2 servings of fruits or vegetables that are high in potassium each day. These include: ?Avocado. ?Banana. ?[place], prune, carrot, or tomato juice. ?Baked potato. [...] magnesium, fish oil, or vitamin B6. Take wizh-oky-niyrema and prescription medicines only as told by [...] Casseroles. Pizza. Lasagna. Frozen meals. Potato chips. Upper Sorbian fries. The items listed above may not [...] provider. Document Revised: 01/26/2023 Document Reviewed: 01/26/2023 [employer] Patient Education 2022 ADOR. 11/28/2023 11:47:36 Kegel Exercises Kegel Exercises Kegel [...] provider. Document Revised: 02/24/2022 Document Reviewed: 02/24/2022 [employer] Patient Education 2022 Elsevier Inc. Follow Up Care 12/09/2022 09:38:13 With:DAT Bustillos APRN, Radha Guo, DONNA, URL Address: When:Within 1 Year(s) Comments:anant BRIDGES [facility] 11-10-2023 History of Present illness Narrative IM PROGRESS NOTE Patient - Lesvia Baylee Ramos Age - 73 y.o. - 1950 [facility] # - [id number] ASSESSMENT & PLAN 1. Essential hypertension -goals [...] cardiovascular event (coronary or stroke or non-fatal AR or stroke) in next 10 years. -I [...] no changes today 5. 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-induced thrombocytopenia) ([facility]) -no active problem at this time. Subjective [...] Testing No results found. Rachael Canela DO., [facility] Phys[facility] Office: [phone] documented in this encounter [facility] 11-06-2023 Miscellaneous Notes Has appt 11/10 would like short term sent in documented in this encounter [facility] 11-06-2023 Telephone encounter Note Has appt 11/10 would like short term sent in [facility] 08-28-2023 Miscellaneous Notes Last OV: 05/2023 Future appt noted: 11/2023 documented in this encounter [facility] 06-27-2023 History of Present illness Narrative Images from the original note were not included. [facility] [place] SECTION OF REGIONAL CARDIOLOGY OUTPATIENT VISIT DATE June 27, 2023 OUTPATIENT VISIT TYPE ESTABLISHED PRIMARY CARE PHYSICIAN: Rachael Canela, DO [address] [place] [address] CHIEF COMPLAINT: Follow-up Last visit with me: [...] is moderate (2+) tricuspid valve regurgitation. 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 [...] with the treatment plan as detailed above. Nicholas Hines DO documented in this encounter [facility] 05-30-2023 History of Present illness Narrative Radiology [...] 2023 9:01 AM documented in this encounter [facility] 05-03-2023 Miscellaneous Notes Risk Rating C: Monitor therapy Summary Nonsteroidal Anti-Inflammatory Agents may diminish the antihypertensive effect of BP meds Beta-Blockers--- take as little of the NSAID as possible. Monitor BP documented in this encounter [facility] 12-27-2022 History of Present illness Narrative Images from the original note were not included. [facility] [place] [facility] Department of Cardiovascular Medicine SECTION OF [...] LIPID PANEL, NONFASTING 7. Typical atrial flutter ([facility]) I48.3 -S/p AVR and aortic root repair [...] File Prior to Visit Medication Sig timolol/dorzolamide/latanop/PF (VLOQATN-UMQMOFJTQL-NZJTYXB,PF,) 0.5-2-0.005 % drop Use 1 Drop in [...] Comment: Indication for hospital admission: [facility] having aortic valve replacement and repair of ascending aorta on 12/01/14. She was staying with family during the recovery period and overall was doing well. READMIT: Transferred from [facility] 12/07/14 after presenting with acute onset [...] with PCP Dr. Barron. f/u with Dr. aMrley lunsford scheduled. -Left arm DVT. cont coumadin No f/u ultrasound needed per -h/o postop Afib. No recurrence. Continue toprol. -HTN. controlled Dispo: DC today. . Lives in [place], [place]. Coumadin to be managed by HIT (+) - 12/09/2014 (A priority) Comment: History: POHS as below 12/01/14 after prior heparin exposure (heart cath). R/A [...] Dr. Roach No f/u ultrasound needed per VM Anemia - 12/27/2014 (C priority) Comment: History: [...] controlled. 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 This note was partially generated with Machine Talker voice recognition software and may contain errors, including spelling, grammar, syntax and misrecognition of what was dictated, that may not be fully corrected. I appreciate the opportunity to participate in this patient's care. Please do not hesitate to call my office if you have any questions. CONTACT INFORMATION: Nitza Mae APRN.JESSIE Adult Nurse Practitioner Jessie Wade Department of Cardiovascular Medicine [facility] [place] [facility] Cardiology Consult Team documented in this encounter [facility] 12-19-2022 Miscellaneous Notes Last appt: 06/27/2022 Next appt: 12/27/2022 Requested Prescriptions Pending Prescriptions Disp Refills metoprolol succinate ER (TOPROL XL) 25 mg 24 hr tablet 270 tablet 3 Sig: TAKE 2 TABLETS BY MOUTH IN THE MORNING then TAKE 1 TABLET BY MOUTH IN THE EVENING documented in this encounter [facility] 12-09-2022 Hospital Discharge instructions Patient Education 12/09/2022 [...] nerve stimulation). For women, using a medical esthetician to prevent urine leaks. This is a [...] right after experiencing incontinence. General instructions Take jnjj-sfe-ssegffg and prescription medicines only as told by [...] 11/23/2005 Document Revised: 10/26/2018 Document Reviewed: 01/25/2018 Ed[employer] Patient Education 2020 ADOR. Follow Up Care 12/08/2021 14:35:27 With:IRMA RECINOS, India Yang, URL Address: [address] [place] [address]- When: Unknown [facility] [facility] 06-02-2022 Miscellaneous Notes The following approved medication [...] in under 01/10/22 documented in this encounter [facility] 12-24-2020 History of Past i llness Narrative [...] at home, Called 911 [facility]. Another brief episode of amnesia [...] - scheduled acetaminophen. 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 Another brief episode of amnesia [...] - scheduled acetaminophen. 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 facility operations manager Thrombocytopenia 12/02/2014 12/03/2014 Overview: 12/02/2014 Expected mild [...] No Cardiac Surgical prep: N/A SIGNATURE: Shelly Sigmund, BOND RUNNER CHECKED BY: rashel DATE of SERVICE: 11/19/2014 TIME of SERVICE: 11:11 AM Thoracic facet syndrome 11/17/201105/31 Aortic stenosis 12/01/2014 Ascending aortic aneurysm Overview: S/p ascending repair documented as of this encounter (statuses as of 08/29/2023) [facility]2021 History of Past illness Narrative* Problem Noted [...] at home, Called 911 [facility]. Another brief episode of amnesia [...] - scheduled acetaminophen. 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 facility operations manager Thrombocytopenia 12/02/2014 12/03/2014 Overview: 12/02/2014 Expected mild [...] Cardiac Surgical prep: N/A SIGNATURE: Shelly Son, BOND RUNNER CHECKED BY: rashel DATE of SERVICE: 11/19/2014 TIME of SERVICE: 11:11 AM Thoracic facet syndrome 11/17/201105/31 Aortic stenosis 12/01/2014 Ascending aortic aneurysm Overview: S/p ascending repair documented as of this encounter (statuses as of 09/04/2023) [facility]21 History of Past illness Narrative* Problem Noted [...] at home, Called 911 [facility] Another brief episode of amnesia [...] - scheduled acetaminophen. 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 facility operations manager Thrombocytopenia 12/02/2014 12/03/2014 Overview: 12/02/2014 Expected mild [...] Cardiac Surgical prep: N/A SIGNATURE: Shelly Son, BOND RUNNER CHECKED BY: rashel DATE of SERVICE: 11/19/2014 TIME of SERVICE: 11:11 AM Thoracic facet syndrome 11/17/201105/31 Aortic stenosis 12/01/2014 Ascending aortic aneurysm Overview: S/p ascending repair documented as of this encounter (statuses as of 12/27/2023) [facility] History of Past illness Narrative* Problem Noted [...] at home, Called 911 [facility] Another brief episode of amnesia [...] - scheduled acetaminophen. 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 facility operations manager Thrombocytopenia 12/02/2014 12/03/2014 Overview: 12/02/2014 Expected mild [...] Cardiac Surgical prep: N/A SIGNATURE: Shelly Son BOND RUNNER CHECKED BY: rashel DATE of SERVICE: 11/19/2014 TIME of SERVICE: 11:11 AM Thoracic facet syndrome 11/17/201105/31 Aortic stenosis 12/01/2014 Ascending aortic aneurysm Overview: S/p ascending repair documented as of this encounter (statuses as of 12/28/2023) [facility] History of Past illness Narrative* Problem Noted Date Resolved Date Malnutrition of moderate degree 12/24/2014 06/29/2021 Overview: History: 2nd to prolonged illness/hospitalization Assessment: nutrition evaluated and mod degree malnutrition Plan: -encourage oral intake at home, con't supplements at home if needed. Change in mental status 12/09/2014 12/20/19 15 Overview: History: 12/07/14 pt developed confusion at home, Called 911 [facility]. Another brief episode of amnesia [...] - scheduled acetaminophen. 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 facility operations manager Thrombocytopenia 12/02/2014 12/03/2014 Overview: 12/02/2014 Expected mild [...] of this encounter (statuses as of 06/02/2022) [facility] History of Past illness Narrative* Problem Noted Date Resolved Date Malnutrition of moderate degree 12/24/2014 06/29/2021 Overview: History: 2nd to prolonged illness/hospitalization Assessment: nutrition evaluated and mod degree malnutrition Plan: -encourage oral intake at home, con't supplements at home if needed. Change in mental status 12/09/2014 12/20/19 15 Overview: History: 12/07/14 pt developed confusion at home, Called 911 [facility]. Another brief episode of amnesia [...] - scheduled acetaminophen. 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 facility operations manager Thrombocytopenia 12/02/2014 12/03/2014 Overview: 12/02/2014 Expected mild postop decrease in plt ct. No bleeding. Monitor Atelectasis/volume overload 12/02/201411/30 Overview: History: 2nd to [facility] Assessment: CXR today, 2/4 with small bilateral pleural effusions & atelectasis. [...] of this encounter (statuses as of 07/05/2022) [facility] History of Past illness Narrative* Problem Noted Date Resolved Date Malnutrition of moderate degree 12/24/2014 06/29/2021 Overview: History: 2nd to prolonged illness/hospitalization Assessment: nutrition evaluated and mod degree malnutrition Plan: -encourage oral intake at home, con't supplements at home if needed. Change in mental status 12/09/2014 12/20/19 15 Overview: History: 12/07/14 pt developed confusion at home, Called 911 [facility]. Another brief episode of amnesia [...] - scheduled acetaminophen. 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 facility operations manager Thrombocytopenia 12/02/2014 12/03/2014 Overview: 12/02/2014 Expected mild [...] Cardiac Surgical prep: N/A SIGNATURE: Shelly Son BOND RUNNER CHECKED BY: rashel DATE of SERVICE: 11/19/2014 TIME of SERVICE: 11:11 AM Aortic stenosis 12/01/2014 Ascending aortic aneurysm 2014 Overview: S/p ascending repair documented as of this encounter (statuses as of 12/19/2022) [facility] History of Past illness Narrative* Problem Noted Date Resolved Date Malnutrition of moderate degree 12/24/2014 06/29/2021 Overview: History: 2nd to prolonged illness/hospitalization Assessment: nutrition evaluated and mod degree malnutrition Plan: -encourage oral intake at home, con't supplements at home if needed. Change in mental status 12/09/2014 12/20/19 Overview: History: 12/07/14 pt developed confusion at home, Called 911 [facility]. Another brief episode of amnesia [...] - scheduled acetaminophen. 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 facility operations manager Thrombocytopenia 12/02/2014 12/03/2014 Overview: 12/02/2014 Expected mild [...] Cardiac Surgical prep: N/A SIGNATURE: Shelly Son BOND RUNNER CHECKED BY: rashel DATE of SERVICE: 11/19/2014 TIME of SERVICE: 11:11 AM Aortic stenosis 12/01/2014 Ascending aortic aneurysm 2014 Overview: S/p ascending repair documented as of this encounter (statuses as of 01/13/2023) [facility] History of Past illness Narrative* Problem Noted Date Resolved Date Malnutrition of moderate degree 12/24/2014 06/29/2021 Overview: History: 2nd to prolonged illness/hospitalization Assessment: nutrition evaluated and mod degree malnutrition Plan: -encourage oral intake at home, con't supplements at home if needed. Change in mental status 12/09/2014 12/20/19 15 Overview: History: 12/07/14 pt developed confusion at home, Called 911 [facility]. Another brief episode of amnesia [...] - scheduled acetaminophen. 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 facility operations manager Thrombocytopenia 12/02/2014 12/03/2014 Overview: 12/02/2014 Expected mild [...] Cardiac Surgical prep: N/A SIGNATURE: Shelly Son, BOND RUNNER CHECKED BY: rashel DATE of SERVICE: 11/19/2014 TIME of SERVICE: 11:11 AM Aortic stenosis 12/01/2014 Ascending aortic aneurysm 2014 Overview: S/p ascending repair documented as of this encounter (statuses as of 05/04/2023) [facility] History of Past illness Narrative* Problem Noted Date Diagnosed Date Resolved Date Malnutrition of moderate degree 12/24/2014 06/29/2021 Overview: History: 2nd to prolonged illness/hospitalization Assessment: nutrition evaluated and mod degree malnutrition Plan: -encourage oral intake at home, con't supplements at home if needed. Change in mental status 12/09/201412/01 Overview: History: 12/07/14 pt developed confusion at home, Called 911 [facility]. Another brief episode of amnesia [...] - scheduled acetaminophen. 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 facility operations manager Thrombocytopenia 12/02/2014 12/03/2014 Overview: 12/02/2014 Expected mild [...] [facility] PRE-OP CHECKLIST Surgeon: oJse Enrique Black M.D. Informed Consent Completed: Yes [...] of this encounter (statuses as of 05/30/2023) [facility] Future Appointments Appointment Date:12/11/2023 09:00:00 AM Scheduled Provider:India SOLIS MD Location:[facility] Appointment Type:URO Office Visit [facility] evalnkjcih + Plan note Future Appointments Appointment Date:05/19/2025 09:45:00 AM Scheduled Provider:India SOLIS MD Location:[facility] Appointment Type:URO Office Visit [facility] evaluation note* Diagnosis S/P AVR (aortic valve replacement) and aortoplasty Heart valve replaced by other means THOMASON (dyspnea on exertion) Other dyspnea and respiratory abnormality Primary hypertension Unspecified essential hypertension [facility] Diagnosis S/P AVR (aortic valve replacement) and aortoplasty Heart valve replaced by other means SVT (supraventricular tachycardia) (HCC) Other specified cardiac dysrhythmias Essential hypertension Unspecified essential hypertension Venous (peripheral) insufficiency Unspecified venous (peripheral) insufficiency documented in this encounter [facility] noteNo assessment information availableUc Health Work Phone: Evaluation note* Diagnosis S/P AVR (aortic valve replacement) and aortoplasty Heart valve replaced by other means SVT (supraventricular tachycardia) (HCC) Other specified cardiac dysrhythmias Essential hypertension Unspecified essential hypertension Venous (peripheral) insufficiency Unspecified venous (peripheral) insufficiency [facility] Diagnosis S/P AVR (aortic valve replacement) and aortoplasty- Primary Heart valve replaced by other means SVT (supraventricular tachycardia) (HCC) Other specified cardiac dysrhythmias APC (atrial premature contractions) Supraventricular premature beats Primary hypertension Unspecified essential hypertension Patchy loss of hair Alopecia, unspecified Mixed hyperlipidemia Typical atrial flutter (HCC) Atrial flutter [facility] Diagnosis Primary hypertension- Primary Unspecified essential hypertension [facility] Diagnosis Impingement syndrome of left shoulder- Primary Other affections of shoulder region, not elsewhere classified [facility] this [facility]* Diagnosis S/P AVR (aortic valve replacement) 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- Primary Heart valve replaced by other means APC (atrial premature contractions) Supraventricular premature beats SVT (supraventricular tachycardia) (HCC) Other specified cardiac dysrhythmias Primary hypertension Unspecified essential hypertension Venous (peripheral) insufficiency Unspecified venous (peripheral) insufficiency [facility] this [facility]* Diagnosis S/P AVR (aortic valve replacement) 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 Heart valve replaced by other means APC (atrial premature contractions) Supraventricular premature beats SVT (supraventricular tachycardia) Other specified cardiac dysrhythmias documented [facility] Diagnosis Pain Generalized pain [facility]* Diagnosis S/P AVR (aortic valve replacement) and aortoplasty- Primary Heart valve replaced by other means SVT (supraventricular tachycardia) (HCC) Other specified cardiac dysrhythmias 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, specified as nonrheumatic PVC (premature ventricular contraction) Other premature beats Acute on chronic diastolic heart failure (HCC) Acute on chronic diastolic heart failure documented [facility] this encounter [facility] Diagnosis S/P AVR (aortic valve replacement) and aortoplasty- Primary Heart valve replaced by other means SVT (supraventricular tachycardia) (HCC) Other specified cardiac dysrhythmias Chronic diastolic heart failure (HCC) Chronic diastolic heart failure PVC (premature ventricular contraction) Other premature beats 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, specified as nonrheumatic documented [facility] this encounter [facility]* Diagnosis Sciatica, left side- Primary documented in this encounter [facility]* Diagnosis Sciatica, left side- Primary Acute pain of left shoulder documented in this encounter [facility]* Diagnosis S/P AVR (aortic valve replacement) 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 Heart valve replaced by other means APC (atrial premature contractions) Supraventricular premature beats SVT (supraventricular tachycardia) (HCC) Other specified cardiac dysrhythmias documented in this encounter [facility]* Diagnosis Sciatica, left side- Primary [facility] Diagnosis S/P AVR (aortic valve replacement) 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- Primary Heart valve replaced by other means SVT (supraventricular tachycardia) (HCC) Other specified cardiac dysrhythmias 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, specified as nonrheumatic Chronic diastolic heart failure (HCC) Chronic diastolic heart failure Mixed hyperlipidemia [facility]* Diagnosis Hypothyroidism, unspecified [facility] Diagnosis Hyperlipidemia, unspecified [facility]* Diagnosis Encounter for subsequent annual wellness visit (AWV) in Medicare patient- Primary Chronic diastolic heart failure (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) SVT (supraventricular tachycardia) ([facility]) Other specified cardiac dysrhythmias Encounter for screening mammogram for malignant neoplasm of breast documented in this encounter [facility]* Diagnosis Essential hypertension- Primary Unspecified essential hypertension Hyperlipidemia, unspecified hyperlipidemia type Hypothyroidism, unspecified type Sensorineural hearing loss (SNHL) of right ear with restricted hearing of left ear documented in this encounter [facility]* Diagnosis Hyperlipidemia, unspecified documented [facility]* Diagnosis Essential hypertension- Primary Unspecified essential hypertension Hyperlipidemia, unspecified hyperlipidemia type Sciatica of left side 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-induced thrombocytopenia) ([facility]) 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 in this encounter [facility]* Diagnosis Encounter for subsequent annual wellness visit (AWV) in Medicare patient- Primary Colon cancer screening Special screening for malignant neoplasms, colon Encounter for screening mammogram for malignant neoplasm of breast Postmenopausal status Asymptomatic postmenopausal status (age-related) (natural) Screening for osteoporosis Special screening for osteoporosis documented [facility] encounter [facility]* Diagnosis Hypothyroidism, unspecified Screen for colon cancer Special screening for malignant neoplasms, colon [facility] Diagnosis Hyperlipidemia, unspecified Screen for colon cancer Special screening for malignant neoplasms, colon [facility] Diagnosis Petechiae or ecchymoses- Primary Spontaneous ecchymoses Sciatica of left side Hypothyroidism, unspecified type [facility] Diagnosis Hyperlipidemia, unspecified [facility]* Diagnosis 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, specified as nonrheumatic [facility]* Diagnosis Nonrheumatic tricuspid valve regurgitation- Primary Tricuspid valve disorders, specified as nonrheumatic Abnormal bruising Other symptoms involving skin and integumentary tissues SVT (supraventricular tachycardia) (HCC) Other specified cardiac dysrhythmias Chronic diastolic heart failure (HCC) Chronic diastolic heart failure Mixed hyperlipidemia S/P AVR (aortic valve replacement) 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 Heart valve replaced by other means Premature atrial complexes Supraventricular premature beats History of heparin-induced thrombocytopenia Personal history of diseases of blood and blood-forming organs Essential (primary) hypertension Unspecified essential hypertension documented in this encounter [facility] course Narrative No data available for this section [facility] InstructionsNot on filedocumented in this encounter [facility] in this [facility] filedocumented in this encounter [facility] filedocumented in this encounter [facility] on filedocumented in this encounter [facility]Not on filedocumented in this encounter [facility]ructionsNot on filedocumented in this encounter [facility] No data available for this section [facility] reason for referral (narrative)* Outpatient Procedure (Routine) - Authorized Specialty Diagnoses / Procedures Referred By Lyn cui Referred To [facility] Diagnoses S/P AVR (aortic valve replacement) and aortoplasty SVT (supraventricular tachycardia) ([facility]) Procedures ECHO ECHO TTHRC R-T 2D W/WOM-MODE COMPL SPEC&COLR D Andres Boyd MD [address] [facility] [place] [address] [facility] [address] [address] Referral ID Status Reason Start Date Expiration Date Visits Requested Visits Authorized [id number] Authorized Auto-Generat ed Referral 12/28/2023 06/26/2024 1 1 * Outpatient Procedure (Routine) - Authorized Specialty Diagnoses / Procedures Referred By Lyn cui Referred To Contact [facility] Diagnoses S/P AVR (aortic valve replacement) and aortoplasty APC (atrial premature contractions) Procedures ECG COMPLETE ECG ROUTINE ECG W/LEAST 12 LDS W/I&R Andres Boyd MD [address] [place] [address] [facility] [address] [address] Referral ID Status Reason Start Date Expiration Date Visits Requested Visits Authorized [id number] Authorized Auto-Generat ed Referral 06/27/2023 06/26/2024 1 1 T [facility] for referral (narrative)* Diagnostic Procedure Only (Routine) - Closed Specialty Diagnoses / Procedures Referred By Lyn cui Referred To Contact XR IMAGING Diagnoses Pain Procedures XR SHOULDER GENERAL 3V OR MORE AP/TRUE AP/OTHER LEFT RADEX SHOULDER COMPLETE MINIMUM 2 VIEWS Nicholas Hines, [address] [facility] [place] [address] [place] [address] Referral ID Status Reason Start Date Expiration Date V isits Requested Visits Authorized [id number] Closed Auto-Generate d Referral 04/07/2023 05/06/2024 1 1 [facility] for referral (narrative)* Outpatient Procedure (Routine) - Pending Review Specialty Diagnoses / Procedures Referred By Contac t Referred To Contact [facility] Diagnoses S/P AVR (aortic valve replacement) and aortoplasty SVT (supraventricular tachycardia) (HCC) Procedures ECG COMPLETE ECG ROUTINE ECG W/LEAST 12 LDS W/I&R Andres Boyd MD [address] [place] [address] [facility] [address] [address] Referral ID Status Reason Start Date Expiration Date Visits Requested Visits Authorized [id number] Pending Review Auto-Generat ed Referral 12/27/2023 12/26/2024 1 1 [facility] for referral (narrative)* Outpatient Procedure (Routine) - Authorized Specialty Diagnoses / Procedures Referred By Contac t Referred To Contact [facility] Diagnoses S/P AVR (aortic valve replacement) and aortoplasty SVT (supraventricular tachycardia) (HCC) Chronic diastolic heart failure (HCC) PVC (premature ventricular contraction) Procedures ECHO ECHO TTHRC R-T 2D W/WOM-MODE COMPL SPEC&COLR D Andres Boyd MD [address] [place] [address] [facility] [address] [address] Referral ID Status Reason Start Date Expiration Date Visits Requested Visits Authorized [id number] Authorized Auto-Generat ed Referral 08/30/2024 02/27/2025 1 1 [facility] for referral (narrative)* Outpatient Procedure (Routine) - New Request Specialty Diagnoses / Procedures Referred By Lyn cui Referred To Contact [facility] Diagnoses S/P AVR (aortic valve replacement) and aortoplasty SVT (supraventricular tachycardia) (HCC) Nonrheumatic tricuspid valve regurgitation Chronic diastolic heart failure (HCC) Mixed hyperlipidemia Procedures ECG COMPLETE ECG ROUTINE ECG W/LEAST 12 LDS W/I&R Andres Boyd MD [address] [facility] [place] [address] [facility] [place] [address] [place] [address] Referral ID Status Reason Start Date Expiration Date Visits Requested Visits Authorized [id number] New Request Auto-Generat ed Referral 09/11/2025 1 1 [facility] for visit Narrative* Rehabilitation - Outpatient (Routine) - Authorized Specialty Diagnoses / Procedures Referred By Contac t Referred To Contact Physical Therapy Diagnoses Sciatica, left side Procedures NM PHYSICAL THERAPY EVALUATION LOW COMPLEX 20 MINS Rachael Canela MD [address] [place] [address] Phone: tel: fax: Vandana Rodriguez, PT Referral ID Status Reason Start Date Expiration Date V isits Requested Visits Authorized [id number] Authorized 08/15/2024 02/11/[address] [facility] HealthcareReason for visit Narrative* Rehabilitation - Outpatient (Routine) - Closed Specialty Diagnoses / Procedures Referred By Lyn cui Referred To Contact Physical Therapy Diagnoses Sciatica, left side Procedures NM PHYSICAL THERAPY EVALUATION LOW COMPLEX 20 MINS Rachael Canela MD [address] [place] [address] Phone: tel: fax: Vandana Rodriguez, PT Referral ID Status Reason Start Date Expiration Date Visits Re quested Visits Authorized [id number] Closed 08/15/2024 02/11/2025 30 30 [facility] Summary Purpose Family History No Family History Records FoundNo Family History Records FoundNo Family History Records Found No data available for this section No Family History Records Found No data available for this section No Family History Records FoundNo Family History Records Found No data available for this section No Family History Records FoundNo Family History Records FoundNo Family History Records FoundNo Family History Records Found Advance Directives No Advanced Directives Records FoundDocuments on File Type Date Recorded 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 Advance Directive(s) Advance Directive(s) 02/05/2021 11:39 AM Advance Directive(s) 01/08/2021 8:34 AM Advance Directive Response Recorded Date/ Time Advance Directives No September 06, 2018 2:42pm Chief Complaint and Reason for Visit Chief Complaint Screening Reason for Referral Specialty Diagnoses / Procedures Referred By Contac t Referred To Contact Rehabilitation Diagnoses Sciatica of left side Rachael Canela, DO [address] [place] [address] [id number] Referral ID Status Reason Start Date Expiration Date Visits Requested Visits Authorized [id number] Pending Review Specialty Services Required 02/06/2025 8 8 Specialty Diagnoses / Procedures Referred By Lyn t Referred To Contact [facility] Diagnoses Impingement syndrome of left shoulder Procedures CONSULT TO PHYSICAL THERAPY PHYSICAL THERAPY EVALUATION HIGH COMPLEX 45 MINS Nicholas Hines, DO [address] [place] [address] [facility] [address] [place] [address] Referral ID Status Reason Start Date Expiration Date Visits Requested Visits Authorized [id number] Authorized PCP Requested Referral Auto-Generate d Referral 05/30/2023 05/29/2024 99 99 Specialty Diagnoses / Procedures Referred By Lyn t Referred To Contact Dermatology Diagnoses Patchy loss of hair Procedures CONSULT TO DERMATOLOGY OFFICE/OUTPATIENT [facility] 60-74 MINUTES Nitza Mae APRN.[facility] [address] [place] [address] Referral ID Status Reason Start Date Expiration Date Visits Requested Visits Authorized [id number] Authorized PCP Requested Referral 12/27/2022 12/27/2023 1 [...] section and content) DATE CREATED AUTHOR 07/22/2020 [facility] DATE CREATED AUTHOR AUTHOR'S ORGANIZ ATION 11/09/2021 [facility] DATE CREATED AUTHOR AUTHOR'S ORGANIZ ATION 12/07/2022 [facility] DATE CREATED AUTHOR AUTHOR'S ORGANIZ ATION 06/03/2024 [facility] DATE CREATED AUTHOR AUTHOR'S ORGANIZ ATION 08/10/2024 [facility] DATE CREATED AUTHOR AUTHOR'S ORGANIZ ATION 09/01/2024 [facility] DATE CREATED AUTHOR AUTHOR'S ORGANIZ ATION 12/08/2024 [facility] DATE CREATED AUTHOR AUTHOR'S ORGANIZ ATION 03/26/2025 [facility] DATE CREATED AUTHOR AUTHOR'S ORGANIZ ATION 03/28/2025 [facility] DATE CREATED AUTHOR AUTHOR'S ORGANIZ ATION 04/10/2025 [facility] Source Comments (unrecognize d section and content) In the event this informatio n is protected by the Federal Confidentiality of Alcohol and Drug Abuse Patient Records regulations: The Federal rules restrict any use of the information to criminally investigate or prosecute any alcohol or drug abuse patient.[facility] the event this information is protected by the Federal Confidentiality of Alcohol and Drug Abuse Patient Records regulations: The Federal rules restrict any use of the information to criminally investigate or prosecute any alcohol or drug abuse patient.[facility] Center[facility] the event this information is protected by the Federal Confidentiality of Alcohol and Drug Abuse Patient Records regulations: The Federal rules restrict any use of the information to criminally investigate or prosecute any alcohol or drug abuse patient.[facility] Center[facility] the event this information is protected by the Federal Confidentiality of Alcohol and Drug Abuse Patient Records regulations: The Federal rules restrict any use of the information to criminally investigate or prosecute any alcohol or drug abuse patient.[facility] CenterIn the event this information is protected by the Federal Confidentiality of Alcohol and Drug Abuse Patient Records regulations: The Federal rules restrict any use of the information to criminally investigate or prosecute any alcohol or drug abuse patient.[facility] CenterIn the event this information is protected by the Federal Confidentiality of Alcohol and Drug Abuse Patient Records regulations: The Federal rules restrict any use of the information to criminally investigate or prosecute any alcohol or drug abuse patient.[facility] CenterIn the event this information is protected by the Federal Confidentiality of Alcohol and Drug Abuse Patient Records regulations: The Federal rules restrict any use of the information to criminally investigate or prosecute any alcohol or drug abuse patient.[facility] CenterIn the event this information is protected by the Federal Confidentiality of Alcohol and Drug Abuse Patient Records regulations: The Federal rules restrict any use of the information to criminally investigate or prosecute any alcohol or drug abuse patient.[facility] CenterIn the event this information is protected by the Federal Confidentiality of Alcohol and Drug Abuse Patient Records regulations: The Federal rules restrict any use of the information to criminally investigate or prosecute any alcohol or drug abuse patient.[facility] CenterIn the event this information is protected by the Federal Confidentiality of Alcohol and Drug Abuse Patient Records regulations: The Federal rules restrict any use of the information to criminally investigate or prosecute any alcohol or drug abuse patient.[facility] CenterIn the event this information is protected by the Federal Confidentiality of Alcohol and Drug Abuse Patient Records regulations: The Federal rules restrict any use of the information to criminally investigate or prosecute any alcohol or drug abuse patient.[facility] CenterIn the event this information is protected by the Federal Confidentiality of Alcohol and Drug Abuse Patient Records regulations: The Federal rules restrict any use of the information to criminally investigate or prosecute any alcohol or drug abuse patient.[facility] CenterIn the event this information is protected by the Federal Confidentiality of Alcohol and Drug Abuse Patient Records regulations: The Federal rules restrict any use of the information to criminally investigate or prosecute any alcohol or drug abuse patient.[facility] CenterIn the event this information is protected by the Federal Confidentiality of Alcohol and Drug Abuse Patient Records regulations: The Federal rules restrict any use of the information to criminally investigate or prosecute any alcohol or drug abuse patient.[facility] CenterIn the event this information is protected by the Federal Confidentiality of Alcohol and Drug Abuse Patient Records regulations: The Federal rules restrict any use of the information to criminally investigate or prosecute any alcohol or drug abuse patient.[facility] CenterIn the event this information is protected by the Federal Confidentiality of Alcohol and Drug Abuse Patient Records regulations: The Federal rules restrict any use of the information to criminally investigate or prosecute any alcohol or drug abuse patient.[facility] CenterIn the event this information is protected by the Federal Confidentiality of Alcohol and Drug Abuse Patient Records regulations: The Federal rules restrict any use of the information to criminally investigate or prosecute any alcohol or drug abuse patient.[facility] CenterIn the event this information is protected by the Federal Confidentiality of Alcohol and Drug Abuse Patient Records regulations: The Federal rules restrict any use of the information to criminally investigate or prosecute any alcohol or drug abuse patient.[facility] Reason for Visit (unrecogniz ed section and [...] LEFT RADEX SHOULDER COMPLETE MINIMUM 2 VIEWS Nicholas Hines, DO [address] [place] [address] [place] [address] Referral ID Status Reason Start Date Expiration Date V isits Requested Visits Authorized [id number] Closed Auto-Generate d Referral 04/07/2023 05/06/2024 1 1 Reason Comments Follow Up Reason Comments Medication Problem Reason Comments medication questions / cost issue Reason Comments Refill Request Reason Comments Med Refill Reason Comments maw Reason Comments Hyperlipidemia Hypertension Reason Onset Date Comments Med Refill 11/06/2023 Reason Comments medicare annual wellness Reason Comments Rash Left Breast Reason Comments Cardiology Follow Up Care Teams (unrecognized sec tion and content) Team Status: Active Member Role Status Dates Rachael Canela DO Primary Care Provider Active Team Status: Inactive Member Role Status Dates Rachael Canela DO Primary Care Provider Active Sta rt: December 20, 2023 End: December 20, 2023 Referral Self Attending Provider Active Start: F ebruary 2023 End: December 20, 2023 Carlos King , DO Referring Provider Active Start: December 20, 2023 End: December 20, 2023 Assembly Worker Relationship Specialty Start Date End Date Rachael Canela PCP - General Internal Medicine 08/04/15 Amparo Nguyen, [facility] Senior Construction Estimator 12/12/14 Assembly Worker Relationship Specialty Start Date End Date Rachael Canelaard PCP - General Internal Medicine 08/04/15 Amparo Nguyen, [facility] Senior Construction Estimator 12/12/14 Team Status: Inactive Member Role Status Dates Rachael Canela , DO Primary Care Provider, Other Provider Active Referral Self Attending Provider Active Carlos King , DO Referring Provider Active Assembly Worker Relationship Specialty Start Date End Date Rachael Canelaard PCP - General Internal Medicine 08/04/15 Amparo Nguyen, [facility] Senior Construction Estimator 12/12/14 Assembly Worker Relationship Specialty Start Date End Date Rachael Canelaard PCP - General Internal Medicine 08/04/15 Amparo Nguyen, [facility] Senior Construction Estimator 12/12/14 Assembly Worker Relationship Specialty Start Date End Date Rachael Canelaard PCP - General Internal Medicine 08/04/15 Amparo Nguyen, [facility] Senior Construction Estimator 12/12/14 Assembly Worker Relationship Specialty Start Date End Date Rachael Canelaard PCP - General Internal Medicine 08/04/15 Amparo Nguyen, [facility] Senior Construction Estimator 12/12/14 Assembly Worker Relationship Specialty Start Date End Date Rachael Canelaard PCP - General Internal Medicine 08/04/15 NguyenAmparo thakkar, EXPLOSIVE OPERATOR Senior Construction Estimator 12/12/14 Assembly Worker Relationship Specialty Start Date End Date Rachael Canela Larry PCP - General Internal Medicine 08/04/15 Amparo Nguyen, EXPLOSIVE OPERATOR Senior Construction Estimator 12/12/14 Assembly Worker Relationship Specialty Start Date End Date Rcahael Canela Larry PCP - General Internal Medicine 08/04/15 Amparo Nguyen, [facility] Senior Construction Estimator 12/12/14 Assembly Worker Relationship Specialty Start Date End Date Rachael Canela Larry PCP - General Internal Medicine 08/04/15 NguyenAmparo thakkar, [facility] Senior Construction Estimator 12/12/14 Assembly Worker Relationship Specialty Start Date End Date Rachael Canela PCP - General Internal Medicine 08/04/15 Amparo Nguyen, [facility] Senior Construction Estimator 12/12/14 Assembly Worker Relationship Specialty Start Date End Date Rachael Canela DO [address] [place] [address] PCP - General Internal Medicine 07/17/17 Assembly Worker Relationship Specialty Start Date End Date Rachael Canela DO [address] [place] [address] PCP - General Internal Medicine 07/17/17 Assembly Worker Relationship Specialty Start Date End Date Rachael Canela DO [address] [place] [address] PCP - General Internal Medicine 07/17/17 Assembly Worker Relationship Specialty Start Date End Date Rachael Canela DO [address] [place] [address] PCP - General Internal Medicine 07/17/17 Assembly Worker Relationship Specialty Start Date End Date Rachael Canela DO [address] [place] [address] PCP - General Internal Medicine 07/17/17 Assembly Worker Relationship Specialty Start Date End Date Rachael Canela DO [address] [place] [address] PCP - General Internal Medicine 07/17/17 Assembly Worker Relationship Specialty Start Date End Date Rachael Canela DO [address] [place] [address] PCP - General Internal Medicine 07/17/17 Assembly Worker Relationship Specialty Start Date End Date Rachael Canela DO [address] [place] [address] PCP - General Internal Medicine 07/17/17 Assembly Worker Relationship Specialty Start Date End Date Rachael Canela PCP - General Internal Medicine 08/04/15 Amparo Nguyen LSW Senior Construction Estimator 12/12/14 Assembly Worker Relationship Specialty Start Date End Date Rachael Canela PCP - General Internal Medicine 08/04/15 Amparo Nguyen LSW Senior Construction Estimator 12/12/14 Assembly Worker Relationship Specialty Start Date End Date Rachael Canela PCP - General Internal Medicine 08/04/15 NguyenAmparo patel LSW Senior Construction Estimator 12/12/14 Goals (unrecognized section and content) Goals may be documented in a n alternate section No data available for this section No data available for this sectionGoals may be documented in an alternate section No data available for this sectionNot on filedocumented as of this encounterNot on filedocumented as of this encounter No data available for this sectionNot on [...] BE BASED ON THE PRIMARY CLINICAL RECORDS. [facility]. provides no warranty or guarantee of the accuracy or completeness of information in this document.
== END 2025-05-14 07:52 | disposition home or self-care (01) ==
LOC: US 07:51
PROVIDERS: PCP Internal Medicine; Visit Provider Urology
DX: N20.0 Calculus of kidney (principal); N13.30 Unspecified hydronephrosis
CPT/HCPCS: 74018; 76775

== ENCOUNTER 2025-06-06 12:01 | Outpatient (OUT) | payer MEDICARE, SELFPAY ==
--- OUTSIDE RECORDS SUMMARY | 2025-06-02 23:59 | XMS_ITS | Continuity of Care Document ---
Author Organization [facility] Address [address] [place] [address] Care Team Providers Care Bingo Usher Name Role Phone RACHAEL CANELA Primary Care Physician Encounter FT_SISIFIN [id number] Date(s): 06/02/25 - 06/02/25 [facility] [address] [address]- Encounter Diagnosis Stress incontinence(Discharge Diagnosis) - 06/02/25 Kidney stones(Discharge Diagnosis) - 06/02/25 Angiomyolipoma(Discharge Diagnosis) - 06/02/25 Discharge Disposition: Home (Routine DC) Attending Physician: Obi SOLIS MD Encounter Type: Clinic Allergies, Adverse Reactions, Alerts Substance Criticality Severity Reaction Reaction Severity Status 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 sulfa drugs Rash Active Immunizations Given and Recorded Vaccine Date Status Refusal Reason influenza virus vaccine, inactivated 09/04/24 Remington rded influenza virus vaccine, inactivated 09/26/23 Remington rded influenza virus vaccine, inactivated 08/31/22 Remington rded influenza virus vaccine, inactivated 09/02/21 [place] rded influenza virus vaccine, inactivated 07/30/20 Remington rded influenza virus vaccine, inactivated 07/05/20 Remington rded influenza virus vaccine, inactivated 08/21/19 Remington rded influenza virus vaccine, inactivated 10/01/18 Remington rded influenza virus vaccine, inactivated 01/11/17 Remington rded influenza virus vaccine, inactivated 09/29/15 Remington rded influenza virus vaccine, inactivated 09/24/14 Remington rded influenza virus vaccine, inactivated 08/04/14 Remington rded RSV vaccine, preF A-preF B, recombinant 10/25/23 R ecorded SARS-CoV-2 (COVID-19) [id number].[id number] 08/16/22 Recorded SARSCoV2 mRNA(cqbqylpch-uwxj-bxgqsk) vac 02/17/22 Recorded SARS-CoV-2 (COVID-19) mRNA BNT-162b2 vax 08/04/21 Recorded SARS-CoV-2 (COVID-19) mRNA BNT-162b2 vax 1 12/17/20 Recorded SARS-CoV-2 (COVID-19) mRNA BNT-162b2 vax 2 11/26/20 Recorded zoster vaccine live 07/02/19 Recorded zoster vaccine live 10/06/14 Recorded zoster vaccine, inactivated 04/29/19 Recorded diphtheria/pertussis, acel/tetanus adult 07/17/17 Recorded pneumococcal 23-valent vaccine 06/23/16 Recorded pneumococcal 23-valent vaccine 11/03/14 Recorded pneumococcal 23-valent vaccine 07/30/14 Recorded hepatitis B adult vaccine 03/20/01 Recorded hepatitis B adult vaccine 10/19/00 Recorded hepatitis B adult vaccine 09/19/00 Recorded 1Result Comment: 2023-11-28: [id number] 2Result Comment: 2023-11-28: [id number] Medications atorvastatin 10 mg Tab Refills(s) 0 Start Date: 12/09/22 Status: Ordered Repeat number: 1 hydrochlorothiazide-spironolactone 25 mg-25 mg Tab See Instructions, Refill(s) 0 Start Date: 11/11/24 Status: Ordered Repeat number: 1 latanoprost Opth 0.005% Jeanie Refill(s) 0 Start Date: 12/09/22 Status: Ordered Repeat number: 1 levothyroxine Daily, Refills(s) 0 Start Date: 06/01/20 Status: Ordered Repeat number: 1 magnesium (as citrate) 83 mg oral tablet, chewable mg tab(s), Oral, BID, Refills(s) 0 Start Date: 11/11/24 Status: Ordered Repeat number: 1 metoprolol succinate 50 mg ER Tab See Instructions, 1 tab(s) Oral Daily, Refills(s) 0 Start Date: 11/11/24 Status: Ordered Repeat number: 1 Vitamin D3 Refills(s) 0 Start Date: 11/11/24 Status: Ordered Repeat number: 1 Problem List Condition Confirmation Course Effective Dates Status H ealth Status Informant Abdominal pain Confirmed Active AF - Atrial fibrillation Confirmed Resolved Angiomyolipoma Confirmed Active Arthritis Confirmed Resolved Gross hematuria Confirmed Active Stress incontinence Confirmed Active Heart murmur Confirmed Resolved History of renal stone Confirmed Active Hydronephrosis with ureteral calculus Confirmed Active Hypertension Confirmed Resolved Kidney stones Confirmed Active Right flank pain Confirmed Active Procedures Procedure Date Related Diagnosis Body Site Status CE - Cataract extraction bilateral 2021 Completed AVR - Aortic valve replacement 10/30/14 Completed Colonoscopy Completed Social History Social History Type Response Smoking Status Never (less than 100 in lifetime);Never; Concerns about tobacco use in household: No entered on: 06/02/25 Sex Female Sex Representation Female (finding) Hospital Discharge Instructions Patient Education 06/02/2025 14:31:41 Laser Therapy for Kidney Stones Laser Therapy for Kidney Stones Laser therapy for kidney stones is a procedure to break up rock-like masses that form inside the kidneys (kidney stones). It is done using a device that beams a strong light (laser) on the kidney stones. This breaks the stones up into small pieces. These small pieces may leave your body when you pee (urinate) or may be taken out during the procedure. You may need laser therapy if you have kidney stones that are painful or that are stopping you frombeing able to pee. Tell a health care provider about: ??? Any allergies you have. ??? All medicines you are taking, including vitamins, herbs, eye drops, creams, and ixmi-hee-qykzqxm medicines. ??? Any problems you or family members have had with anesthesia. ??? Any bleeding problems you have. ??? Any surgeries you have had. ??? Any medical conditions you have. ??? Whether you are or may be . What are the risks? Your health care provider will talk with you about risks. These may include: ??? Infection. ??? Bleeding. ??? Allergic reactions to medicines. ??? Damage to: ??? The part of your body that drains pee (urine) from the bladder (urethra). ??? The bladder. ??? The tube that connects the bladder to the kidneys (ureter). ??? Urinary tract infection (UTI). ??? Urethral stricture. This is when the urethra is narrowed by scarring. ??? Trouble peeing. ??? Blockage of the kidney. This may be caused by a piece of kidney stone. What happens before the procedure? When to stop eating and drinking Follow instructions from your provider about what you may eat and drink. These may include: ??? 8 hours before the procedure ??? Stop eating most foods. Do not eat meat, fried foods, or fatty foods. ??? Eat only light foods, such as toast or crackers. ??? All liquids are okay except energy drinks and alcohol. ??? 6 hours before the procedure ??? Stop eating. ??? Drink only clear liquids, such as water, clear fruit juice, black coffee, plain tea, and sportsdrinks. ??? Do not drink energy drinks or alcohol. ??? 2 hours before the procedure ??? Stop drinking all liquids. ??? You may be allowed to take medicines with small sips of water. ??? If you do not follow your provider's instructions, your procedure may be delayed or canceled. Medicines ??? Ask your provider about: ??? Changing or stopping your regular medicines. These include any diabetes medicines or blood thinners you take. ??? Taking medicines such as aspirin and ibuprofen. These medicines can thin your blood. Do not take them unless your provider tells you to. ??? Taking ajmv-bbb-pcaxdda medicines, vitamins, herbs, and supplements. Tests ??? You may have a physical exam before the procedure. You may also have tests done. These may include: ??? Imaging tests. ??? Blood or pee tests. Surgery safety ??? Ask your provider: ??? How your surgery site will be marked. ??? What steps will be taken to help prevent infection. These steps may include: ??? Removing hair at the surgery site. ??? Washing skin with a soap that kills germs. ??? Taking antibiotics. General instructions ??? Do not use any products that contain nicotine or tobacco for at least 4 weeks before the procedure. These products include cigarettes, chewing tobacco, and vaping devices, such as e-cigarettes. If you need help quitting, ask your provider. ??? If you will be going home right after the procedure, plan to have a responsible adult: ??? Take you home from the hospital or clinic. You will not be allowed to drive. ??? Care for you for the time you are told. What happens during the procedure? An IV will be inserted into one of your veins. ??? You will be given: ??? A sedative. This helps you relax. ??? Anesthesia. This keeps you from feeling pain. It will make you fall asleep for surgery. ??? A tool with a camera on the end (ureteroscope) will be put into your urethra. It will be moved through your bladder to your kidney. It will send pictures to a screen in the operating room. This will show what parts of your kidney need to be treated. ??? A tube will be put through the ureteroscope. It will be moved into your kidney. ??? The laser device will be put into your kidney through the tube. The laser will be used to breakup the kidney stones. ??? A tool with a tiny wire basket may be put through the tube into your kidney. This can help remove the small pieces of the kidney stone. ??? A small mesh tube (stent) may be placed to allow your kidney to drain. ??? The tube and ureteroscope will be taken out at the end of the surgery. The procedure may vary among providers and hospitals. What happens after the procedure? Your blood pressure, heart rate, breathing rate, and blood oxygen level will be monitored untilyou leave the hospital or clinic. ??? If you had a stent placed, it may have a string that will be secured to your skin. This helps your provider remove the stent. ??? You may be given a strainer to collect any stone pieces that you pass in your pee. Your provider may have these tested. This information is not intended to replace advice given to you by your health care provider. Make sure you discuss any questions you have with your health care provider. Document Revised: 06/16/2023 Document Reviewed: 06/16/2023 [employer]rin Patient Education ?? 2023 [employer] 06/02/2025 14:27:44 ESWL for Kidney Stones ESWL for Kidney Stones Extracorporeal shock wave lithotripsy (ESWL) is a treatment that can help break up kidney stones that are too large to pass on their own. This is a nonsurgical procedure that breaks up a kidney stone with shock waves. These shock waves pass through your body and focus on the kidney stone. They cause the kidney stone to break into smaller pieces (fragments) while it is still in the urinary tract. The fragments of stone can pass more easily out of your body in the urine. Tell a health care provider about: ??? Any allergies you have. ??? All medicines you are taking, including vitamins, herbs, eye drops, creams, and mxnm-ddl-rxsppuv medicines. ??? Any problems you or family members have had with anesthetic medicines. ??? Any bleeding problems you have. ??? Any surgeries you have had. ??? Any medical conditions you have. ??? Whether you are or may be . What are the risks? Your health care provider will talk with you about risks. These may include: ??? Infection. ??? Bleeding from the kidney. ??? Bruising of the kidney or skin. ??? Scarring of the kidney. This can lead to: ??? Increased blood pressure. ??? Poor kidney function. ??? Return (recurrence) of kidney stones. ??? Damage to other structures or organs. This may include the liver, colon, spleen, or pancreas. ??? Blockage (obstruction) of the tube that carries urine from the kidney to the bladder (ureter). ??? Failure of the kidney stone to break into fragments. What happens before the procedure? When to stop eating and drinking Follow instructions from your health care provider about what you may eat and drink. These may include: ??? 8 hours before your procedure ??? Stop eating most foods. Do not eat meat, fried foods, or fatty foods. ??? Eat only light foods, such as toast or crackers. ??? All liquids are okay except energy drinks and alcohol. ??? 6 hours before your procedure ??? Stop eating. ??? Drink only clear liquids, such as water, clear fruit juice, black coffee, plain tea, and sportsdrinks. ??? Do not drink energy drinks or alcohol. ??? 2 hours before your procedure ??? Stop drinking all liquids. ??? You may be allowed to take medicines with small sips of water. If you do not follow your health care provider's instructions, your procedure may be delayed or canceled. Medicines Ask your health care provider about: ??? Changing or stopping your regular medicines. These include any diabetes medicines or blood thinners you take. ??? Taking medicines such as aspirin and ibuprofen. These medicines can thin your blood. Do not take them unless your health care provider tells you to. ??? Taking lzkv-ebo-tnqiuoj medicines, vitamins, herbs, and supplements. Tests You may have tests, such as: ??? Blood tests. ??? Urine tests. ??? Imaging tests. This may include a CT scan. Surgery safety Ask your health care provider: ??? How your surgery site will be marked. ??? What steps will be taken to help prevent infection. These steps may include: ??? Washing skin with a soap that kills germs. ??? Receiving antibiotics. General instructions ??? If you will be going home right after the procedure, plan to have a responsible adult: ??? Take you home from the hospital or clinic. You will not be allowed to drive. ??? Care for you for the time you are told. What happens during the procedure? An IV will be inserted into one of your veins. ??? You may be given: ??? A sedative. This helps you relax. ??? Anesthesia. This will: ??? Numb certain areas of your body. ??? Make you fall asleep for surgery. ??? A water-filled cushion may be placed behind your kidney or on your abdomen. In some cases, you may be placed in a tub of lukewarm water. ??? Your body will be positioned in a way that makes it easier to target the kidney stone. ??? An X-ray or ultrasound exam will be done to locate your stone. ??? Shock waves will be aimed at the stone. If you are awake, you may feel a tapping sensation as the shock waves pass through your body. ??? A small mesh tube (stent) may be placed in your ureter. This will help keep urine flowing from the kidney if the fragments of the stone have been blocking the ureter. The stent will be removed terrie later time by your health care provider. The procedure may vary among health care providers and hospitals. What happens after the procedure? Your blood pressure, heart rate, breathing rate, and blood oxygen level will be monitored untilyou leave the hospital or clinic. ??? You may have an X-ray after the procedure to see how many of the kidney stones were broken up. This will also show how much of the stone has passed. If there are still large fragments after treatment, you may need to have a second procedure at a later time. This information is not intended to replace advice given to you by your health care provider. Make sure you discuss any questions you have with your health care provider. Document Revised: 02/16/2023 Document Reviewed: 02/16/2023 Elsevier Patient Education ?? 2023 [employer]. Follow Up Care 11/11/2024 13:13:46 With:IRMA RECINOS, Obi Yang, URL Address: [facility] [address], [place] [address]- [phone] When: Unknown Patient Care team information Care Team Personnel Name: RACHAEL CANELA DO Position: FT Physician Member Role: Primary Care Physician Address: [address] [place] [address] Telecom: Care Team Related Persons Name: ABDOUL RAMOS Name: ABDOUL RAMOS Insurance Providers Guarantor name: Health Plan Information #: 1 Payer: NA Payer Identifier: [id number] Member Number: [id number] Group Number: Subscriber Identifier: [id number] Relationship to Subscriber: Self Coverage Type: MEDICARE Coverage Verification Date: 25 Telecom: NA Address: Health Plan Information #: 2 Payer: NA Payer Identifier: [id number] Member Number: [id number] Group Number: [id number] Subscriber Identifier: [id number] Relationship to Subscriber: Self Coverage Type: PRIVATE HEALTH INSURANCE Coverage Verification Date: 25 Telecom: NA Address:
--- NOTE | 2025-06-06 | XR_ITS ---
[facility] [place] [id number] Patient Name: FERNANDO RAMOS MRN: [id number] date: 1950 Sex: F Assigned Patient Location: [facility] Current Patient Location: [facility] Accession/Order Number: [id number] Exam Date: 06/06/2025 14:04 Report Date: 06/06/2025 14:05 At the request of: INDIA SOLIS MD Procedure: XR abdomen 1V KUB: CLINICAL INFORMATION: Kidney stone follow-up COMPARISON: Ultrasound 05/14/2025 KUB 05/14/2025 FINDINGS: No suspicious urinary tract calcification. No bowel obstruction or free air. XR/XR abdomen 1V IMPRESSION: NO SUSPICIOUS URINARY TRACT CALCULUS. Impression dictated by: Edison Douglas Jr., D.O. 06/06/2025 2:05 PM Dictation Location: [place] [address] Electronically authenticated by: [id number] Y Date: 06/06/2025 14:05
--- OUTSIDE RECORDS SUMMARY | 2025-06-06 12:06 | XMS_ITS | Encounter Summary ---
Author Organization [employer] Address [id number] [address] [place] [address] Care Team Providers Care Community Service Organization Director Name Role Phone Pepito Guajardo DO Primary Care Provider [phone] Encounter Details Date Type Department Care Team (Late st Contact Info) Description 09/13/2022 Orders Only [facility] - [facility] [address] [place] [phone] External, Scanning Provider Social History Tobacco Use Types Packs/Day Years Used Date Smoking Tobacco: Never Smokeless Tobacco: Never Childcare Answer Date Recorded Childcare Unknown 04/10/2019 Employment Answer Date Recorded Employment Unknown 04/10/2019 Purpose - Life Answer Date Recorded Purpose and direction in life Unknown Comments Unknown Sex and Gender Information Value Date Recorded Sex Assigned at Not on file Legal Sex Female 11:48 AM EDT Gender Identity Not on file Sexual Orientation Not on file documented as of this encounter Plan of Treatment Upcoming Encounters Date Type Department Care Team (Late st Contact Info) Description 07/04/2025 9:30 AM EDT Office Visit [facility] [address] [place] [address] Pepito Guajardo DO [address] [place] [address] 12/04/2025 11:00 AM EST Office Visit [facility] [address] [place] [phone] documented as of this encounter Procedures Procedure Name Priority Date/Time Associated Diagnosis Comments MAMMOGRAPHY Routine 09/12/2022 documented in this encounter Results * MAMMOGRAPHY (09/12/2022) Anatomical Region Laterality Modality Other 09/12/2022 us Scanning Provider External [facility] nal Result documented in this encounter Visit Diagnoses Not on filedocumented in this encounter Care Teams Community Service Organization Director Relationship Specialty Start Date End Date Pepito Guajardo DO [address] [place] [id number] PCP - General Internal Medicine 07/17/17 documented as of this encounter
--- OUTSIDE RECORDS SUMMARY | 2025-06-06 12:06 | XMS_ITS | Encounter Summary ---
Author Organization P[employer] [employer] tem Address [id number] [address] [place] [address] Care Team Providers Care Publication Manager Name Role Phone Pepito Guajardo Primary Care Provider [phone] Encounter Details Date Type Department Care Team (Late st Contact Info) Description 04/04/2024 Telephone [facility] [address] [place] [phone] Yarelis Velez CMA Social History Tobacco Use Types Packs/Day Years Used Date Smoking Tobacco: Never Smokeless Tobacco: Never Alcohol Use Standard Drinks/Week Comments Yes 0 (1 standard drink = 0.6 oz pur e alcohol) socially [employer] Utilities Answer Date Recorded In the past 12 months has e electric, gas, oil, or water company threatened to shut off services in your home? No 11/28/2023 Social Connection and Isolat ion Panel [NHANES] Answer Date Recorded In a typical week, how many times do you talk on the phone with family, friends, or neighbors? More than three times a week 11/28/2023 How often do you get togethe r with friends or relatives? Twice a week 11/28/2023 How often do you attend chur ch or baptist services? More than 4 times per year 11/28/2023 Do you belong to any clubs o r organizations such as gnosticist groups, unions, fraternal or athletic groups, or school groups? Yes 11/28/2023 How often do you attend meet ings of the clubs or organizations you belong to? 1 to 4 times per year 11/28/2023 Are you , , di vorced, , never , or living with a partner? 11/28/2023 AUDIT-C Answer Date Recorded Q1: How often do you have a drink containing alc ohol? 2-3 times a week 11/28/2023 Q2: How many drinks containi ng alcohol do you have on a typical day when you are drinking? 1 or 2 11/28/2023 Q3: How often do you have si x or more drinks on one occasion? Never 11/28/2023 Overall Financial Resource Strain (CARDIA) Answe r Date Recorded How hard is it for you to pa y for the very basics like food, housing, medical care, and heating? Not hard at all 11/28/2023 PHQ-2 Answer Date Recorded Total Score 0 11/28/2023 [facility] - Occupational Stress Questionnaire Answer Date Recorded Do you feel stress - tense, restless, nervous, or anxious, or unable to sleep at night because your mind is troubled all the time - these days? Not at all 11/28/2023 Exercise Vital Sign Answer Date Recorde d On average, how many days pe r week do you engage in moderate to strenuous exercise (like a brisk walk)? 3 days 11/28/2023 On average, how many minutes do you engage in exercise at this level? 30 min 11/28/2023 PRAPARE - Transportation Answer Date Re corded In the past 12 months, has l ack of transportation kept you from medical appointments or from getting medications? No 11/01 In the past 12 months, has l ack of transportation kept you from meetings, work, or from getting things needed for daily living? No 11/28/2023 Housing Instability Answer Date Recorde d Are you worried or concerned that in the next two months you may not have stable housing that you own, rent or stay in as a part of a household? No 11/28/2023 Childcare Answer Date Recorded Do problems getting child ca re make it difficult for you to work or study? No 11/28/2023 Employment Answer Date Recorded Do you need help finding a [facility] and/or a training program? No 11/28/2023 Hunger Screening Answer Date Recorded Within the past 12 months we worried whether our food would run out before we got money to buy more. Never True 11/28/2023 Within the past 12 months th e food we bought just didn't last and we didn't have money to get more. Never True 11/28/2023 Purpose - Life Answer Date Recorded I have a purpose and direction in my life. Agree 11/28/2023 Comments Unknown Sex and Gender Information Value Date Recorded Sex Assigned at Not on file Legal Sex Female 11:48 AM EDT Gender Identity Not on file Sexual Orientation Not on file documented as of this encounter Miscellaneous Notes * Telephone Encounter - Yarelis Velez CMA - 04/04/2024 1:53 PM EDT Pt called and is rescheduling her Colonoscopy was 04/24/24 now 05/29/24. She sees a heart Doctor and they recommend a Prep that doesn't make her drink so much fluid do to fluid retention issues. Whatprep would work for her.? Please advise. documented in this encounter Plan of Treatment Upcoming Encounters Date Type Department Care Team (Late st Contact Info) Description 07/04/2025 9:30 AM EDT Office Visit [facility] [address] [place] [address] Pepito Guajardo DO [address] [place] [address] 12/04/2025 11:00 AM EST Office Visit [facility] [address] [place] [address] documented as of this encounter Visit Diagnoses Not on filedocumented in this encounter Additional Health Concerns Assessment Noted Time PHQ-9 Depression Total Score: 0 11/28/19 24 2:48 PM EST documented as of this encounter Care Teams Publication Manager Relationship Specialty Start Date End Date Pepito Guajardo DO [address] [place] [address] PCP - General Internal Medicine 9/18/17 documented as of this encounter
--- OUTSIDE RECORDS SUMMARY | 2025-06-06 12:06 | XMS_ITS | Clinical Summary ---
Author Organization [employer] Address [facility] [place]-[id number] [address] [place] [address] Care Team Providers Care Metal Drill Press Operator Name Role Phone Pepito Guajardo Primary Care Provider [phone] Allergies Active Allergy Reactions Criticality Noted Date Comments Heparin bleeding High 12/09/2014 Other reaction(s): Other: See Comments HIT Sulfa (Sulfonamide Antibiotics) Rash Low 11/17/2011 Medications acetaminophen (TYLENOL) 325 mg tablet Take 2 tablets (650 mg total) by mouth. 5 Active latanoprost (XALATAN) 0.005 % ophthalmic solution Refill(s) 0 3 Active metoprolol succinate XL (TOPROL XL) 50 mg 24 hr tablet Take 1 tablet (50 mg total) by mouth in the morning and 1 tablet (50 mg total) before bedtime. 3 Active spironolactone (ALDACTONE) 25 mg tablet Take 1 tablet (25 mg total) by mouth in the morning. Active magnesium oxide 250 mg tablet Take 1 tablet (250 mg total) by mouth in the morning. Active cholecalciferol 1,000 units tablet Take 1 tablet (1,000 Units total) by mouth in the morning. Active atorvastatin (LIPITOR) 10 mg tabletIndicatio ns:Hyperlipidem ia, unspecified TAKE 1 TABLET BY MOUTH DAILY 90 tablet 1 5 Active levothyroxine (SYNTHROID, LEVOTHROID) 75 MCG tabletIndicatio ns:Hypothyroidi sm, unspecified TAKE 1 TABLET BY MOUTH ONCE DAILY 90 tablet 1 5 Active levothyroxine (SYNTHROID, LEVOTHROID) 75 MCG tabletIndicatio ns:Hypothyroidi sm, unspecified TAKE 1 TABLET BY MOUTH DAILY 90 tablet 1 5 025 Discontinued atorvastatin (LIPITOR) 10 mg tabletIndicatio ns:Hyperlipidem ia, unspecified TAKE 1 TABLET BY MOUTH ONCE DAILY 90 tablet 1 5 025 Discontinued Active Problems Problem Noted Date Diagnosed Date Chronic diastolic heart failure 12/05/2024 Polyp of sigmoid colon 05/29/2024 Colon cancer screening 05/27/2024 Venous (peripheral) insufficiency 06/27/2023 Right flank pain 01/30/2023 01/30/2023 Renal stone 01/30/2023 01/30/2023 Gross hematuria 01/30/2023 01/30/2023 Abdominal pain 01/30/2023 01/30/2023 Hydronephrosis with ureteral calculus 01/30/2023 01/30/2023 Genuine stress incontinence, female 01/30/2023 01/30/2023 APC (atrial premature contractions) 12/27/2021 01/30/2023 SANTOS (dyspnea on exertion) 06/29/20212022 Intercostal pain 12/24/2020 01/30/2023 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 H&H trending up Plan: Continue Fe BID x 1 month f/u labs with PCP 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-induced thrombocytopenia) 5 01/30/2023 Overview (01/30/2023): History: POHS as below 12/01/14 after prior heparin exposure (heart cath). R/A for transient global amnesia and found to be thrombocytopenic. The pattern of thrombocytopenia is typical for HIT, hep-PF4 antibody was unequivocally positive, hence the Dx of HIT was made. IV Ig daily x3 days (end date of 12/28). premedicated with benadryl and solucortef Assessment: stable Plan: -INR therapeutic DC Bival per VM okay to DC to home. f/u with DR. Roach appt scheduled. Dr. Barron to manage coumadin locally. Hypothyroidism 12/04/2014 01/30/2023 Overview (01/30/2023): History: TSH normal on synthroid pre-op. Assessment: stable. Plan: con't synthroid. Hypertension 12/02/2014 01/30/2023 Overview (01/30/2023): History: Pre-op on HCTZ/triamterene. Assessment: stable, except higher BP as being checked in leg, d/t DVT/PICC Plan: Continue norvasc, HCTZ/triamterene, toprol and ACEi. rec monitor BP at home and take to f/u appts. Hyperlipidemia 12/02/2014 01/30/2023 Overview (01/30/2023): History: Pre-op LDL 66 on Zocor. Assessment: controlled. 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 Plan: con't coumadin f/u with Dr. Roach No f/u ultrasound needed per VM Atrial flutter 12/12/2014 01/30/2023 03/30/2023 Overview (01/30/2023): History: post op Aflutter Assessment: maintaining sinus. Plan: continue toprol XL. coumadin f/u with [facility] Dr. Roach Encounters Date Type Department Care Team Description 05/28/2025 Telephone [facility] - [facility] [address] [place] [address] Yarelis Velez CMA 05/28/2025 Refill [facility] [address] [place] [address] Pepito Guajardo, DO Hypothyroidism, unspecified 05/25/2025 Refill [facility] [address] [place] [address] Pepito Guajardo, Hyperlipidemia, unspecified 03/31/2025 Telephone [facility] [address] [place] [address] Fanny Kinsey CMA 03/26/2025 Orders Only [facility] - [facility] [address] [place] [address] Fanny Kinsey CMA Encounter for screening mammogram for malignant neoplasm of breast from Last 3 Months Immunizations Immunization Administration Dates Next Due Hepatitis B 03/20/2001,10/19/2000,09/19/2000 Influenza (IM) Preservative Free 10/01/2018,08/31 Influenza High Dose Preserva tive Free IM 09/04/2024,07/05/2020,08/21/2019,08/04 Influenza Split Preservative Free ID 09/29/2015 Influenza, High-dose, Quadrivalent 09/26/2023,,09/02/2021 Influenza, Im Trivalent Preservative 01/11/2017 Influenza, Injectable, quadr ivalent (PF) 07/30/2020 Pneumococcal Polysaccharide 06/23/2016, 5,07/30/2014 RSV, bivalent, protein subun it RSVpreF, diluent reconstituted, 0.5 mL, PF 10/25/2023 Tdap 07/17/2017 Zoster Live 07/02/2019,10/06/2014 Zoster Vaccine Recombinant 04/29/2019 Family History Medical History Relation Name Comments Stomach cancer Father Cerebral aneurysm Mother Glaucoma Sister 1 Amber Glaucoma Sister 2 Evelyn Lupus Sister 2 Evelyn Relation Name Status Comments Father Mother Sister 1 Amber Alive Sister 2 Evelyn Alive Social History Tobacco Use Types Packs/Day Years Used Date Smoking Tobacco: Never Smokeless Tobacco: Never Tobacco Cessation:Counseling Given: Not Answered Alcohol Use Standard Drinks/Week Comments Yes 0 (1 standard drink = 0.6 oz pur e alcohol) [employer] Answer Date Recorded In the past 12 months has [employer], gas, oil, or water [employer] threatened to shut off services in your [...] 11/28/2023 How often do you attend chur or yarsani services? More than 4 times per year 11/28/2023 Do you belong to any clubs o r organizations such as voodoo groups, unions, fraternal or athletic groups, or [...] PHQ-2 Answer Date Recorded Total Score 0 12/05/2024 [facility] [place] of Occupat ional Health - Occupational Stress [...] exercise (like a brisk walk)? 3 days 12/03/2024 On average, how many minutes do you engage in exercise at this level? 20 min 12/03/2024 PRAPARE - Transportation Answer Date Re corded [...] Recorded Do you need help finding a [facility] career center and/or a training program? No 11/28/2023 Hunger Screening Answer Date Recorded Within the past 12 months we worried whether our food would run out before we got money to buy more. Never True 12/05/2024 Within the past 12 months th e food we bought just didn't last and we didn't have money to get more. Never True 12/05/2024 Purpose - Life Answer Date Recorded I have a purpose and direction in my life. Agree 11/28/2023 Comments Unknown Sex and Gender Information Value Date Recorded Sex Assigned at Not on file Legal Sex Female 11:48 AM EDT Gender Identity Not on file Sexual Orientation Not on file Last Filed Vital Signs Vital Sign Reading Time Taken Comments Blood Pressure 110/70 12/05/2024 12:56 PM EST Pulse 88 12/05/2024 12:56 PM EST Temperature 36.1 C (97 F) 12/05/2024 12:56 PM EST Respiratory Rate 20 05/29/2024 12:25 PM EDT Oxygen Saturation 98% 12/05/2024 12:56 PM EST Inhaled Oxygen Concentration - - Weight 57.7 kg (127 lb 3.2 oz) 12/05/2024 12:56 PM EST Height 161.3 cm (5' 3.5 ) 12/05/2024 12:56 PM ES T Body Mass Index 22.18 12/05/2024 12:56 PM EST Plan of Treatment Upcoming Encounters Date Type Department Care Team (Late st Contact Info) Description 07/04/2025 9:30 AM EDT Office Visit [facility] [address] [place] [address] Pepito Guajardo, [address] [place] [address] 12/04/2025 11:00 AM EST Office Visit [facility] [address] [place] [address] Health Maintenance Due Date Last Done Comments Zoster (Shingles) Vaccine (3 of 3) 08/27/2019 07/02/2019, 04/29/2019, 10/06/2014 COVID-19 Vaccine (2023-2 5 season) 2025 08/10/2024, 09/14/2023, 08/16/2022, Additional history exists Influenza Vaccine 06/30/2025 09/04/2024, , 08/31/2022, Additional history exists Medicare Annual Wellness Visit 12/03/2025 12/03/2024 , 11/28/2023 Adult BMI Screening 12/05/2025 12/05/2024 Depression Screening 12/05/2025 12/05/2024 Fall Risk Screening 12/05/2025 12/05/2024 Tobacco Screening 12/05/2025 12/05/2024 DTaP,Tdap and Td Vaccines (2 - Td or Tdap) 07/17/2027 07/17/2017 Medical Devices Not on file Procedures Procedure Name Priority Date/Time Associated Diagnosis Comments MAMM SCREENING BILATERAL W CAD Routine 03/26/2025 1:43 PM EDT Encounter for screening mammogram for malignant neoplasm of breast from Last 3 Months Results * Mammography screening bilateral with CAD (03/26/2025 1:43 PM EDT) Anatomical Region Laterality Modality Breast Bilateral Mammography Pepito Guajardo DO IMG MAMMOGRAPHY ORDERABLES Final Result from Last 3 Months Insurance MEDICARE AET Care Teams Metal Drill Press Operator Relationship Specialty Start Date End Date Pepito Guajardo DO [address] [place] [address] PCP - General Internal Medicine 07/17/17
--- OUTSIDE RECORDS SUMMARY | 2025-06-06 12:06 | XMS_ITS | Encounter Summary ---
Author Organization [facility] Address [address] [place] [address] Care Team Providers Care Commercial Fisherman Name Role Phone Unavailable Primary Care Provider Unavailabl e Encounter Details Date Type Department Care Team (Late st Contact Info) Description 12/21/2023 Orders Only [facility] [address] [place] [address] Carlos King DO [address] [place] [address] Social History Tobacco Use Types Packs/Day Years [...]
--- OUTSIDE RECORDS SUMMARY | 2025-06-06 12:06 | XMS_ITS | Encounter Summary ---
Author Organization [employer] Address [id number] [address] [place] [address] Care Team Providers Care Tester/Lift Trucker Name Role Phone Pepito Guajardo DO Primary Care Provider Encounter Details Date Type Department Care Team (Late st Contact Info) Description 06/19/2024 Orders Only [facility] - [facility] [address] [place] [phone] Ref Prov, [place] [address] Social History Tobacco Use Types Packs/Day Years Used Date Smoking Tobacco: Never Smokeless Tobacco: Never Alcohol Use Standard Drinks/Week Comments Yes 0 (1 standard drink = 0.6 oz pur e alcohol) socially [email or web address] Utilities Answer Date Recorded In the past [...] often do you attend chur ch or quaker services? More than 4 times per year 11/28/2023 Do you belong to any clubs o r organizations such as lutheran groups, unions, fraternal or athletic groups, or [...] Answer Date Recorded Total Score 0 11/28/2023 [facility] [place] of Occupat ional Health - Occupational Stress [...] Recorded Do you need help finding a [facility] career center and/or a training program? No [...] Internal Medicine - Family Medicine [address] [place] [address] Pepito Guajardo DO [address] [place] [address] 12/04/2025 11:00 AM EST Office Visit [facility] [address] [place] [address] documented as of this encounter Procedures Procedure Name Priority Date/Time Associated Diagnosis Comments XR ABDOMEN AP 1 VW Routine 06/17/2024 4: 53 PM EDT documented in this encounter Results * X-ray abdomen ap 1 view (06/17/2024 4:53 PM EDT) Anatomical Region Laterality Modality Body, Abdomen N/A Computed Radiogr aphy us Not In System Ref Prov IMG DIAGNOSTIC IMAGING OR DERABLES Final Result documented in this encounter Visit Diagnoses Not on filedocumented in this encounter Additional Health Concerns Assessment Noted Time PHQ-9 Depression Total Score: 0 11/28/19 24 2:48 PM EST documented as of this encounter Care Teams Tester/Lift Trucker Relationship Specialty Start Date End Date Pepito Guajardo DO [address] [place] [address] PCP - General Internal Medicine 9/18/17 documented as of this encounter
--- OUTSIDE RECORDS SUMMARY | 2025-06-06 12:06 | XMS_ITS | Clinical Summary ---
Author Organization [facility] Address [address] [place] [address] Care Team Providers Care Argon Tester Name Role Phone Unavailable Primary Care Provider [...] Holcomb M.D. 03/17/2025 9:47 AM Dictation Location: [facility] Dictated By: Jose Holcomb MD 03/17/2545 Signed By: <Electronically signed by Jose Holcomb MD in OV> 03/17/25 0947 Narrative 03/17/2025 9:50 AM EDT [facility] [address] [place] [address] Mammography Report Signed Patient: Lesvia Fritz I MR#: [id number] : 1950 Acct:[id number] Age/Sex: 74 / F Adm Date: 03/17/25 Loc: [place] Room: [facility] Dr: Referral Self Ordering Provider: SELF,REFERRAL Date of Service: 03/17/25 Procedure(s): MM screening mammo BI w/CAD Accession Number(s): ([id number]) MM/MM screening mammo BI w/CAD: SCREENING Copies [...] Procedure Note Radiology, Radiologist, MD - 03/17/2025 [place] [address] Mammography Report Signed Patient: Lesvia Fritz IMR#: [id number] : 1950Acct:[id number] Age/Sex: 74 / FAdm Date: 03/17/25 Loc: [place] Room:Type[facility] Dr: Referral Self Ordering Provider: SELF,REFERRAL Date of Service: 03/17/25 Procedure(s): MM screening mammo BI w/CAD Accession Number(s): ([id number]) MM/MM screening mammo BI w/CAD:SCREENING Copies to: [...] Holcomb M.D. 03/17/2025 9:47 AM Dictation Location: [facility] Dictated By: Jose Holcomb MD 03/17/25 0945 Signed By: <Electronically signed by Jose Holcomb MD in OV> 03/17/25 0947 Generic External Data Provider IMG BI PROCEDURES Final Result from Last 3 Months Insurance MEDICARE AET
--- OUTSIDE RECORDS SUMMARY | 2025-06-06 12:06 | XMS_ITS | Encounter Summary ---
Author Organization [employer] Address [id number] [address] [place] [address] Care Team Providers Care Audio Technician Name Role Phone Pepito Guajardo Primary Care Provider [phone] Encounter Details Date Type Department Care Team (Late st Contact Info) Description 05/28/2025 Telephone [facility] - Family Medicine [address] [place] [address] Yarelis Velez CMA Social History Tobacco Use Types Packs/Day Years Used Date Smoking Tobacco: Never Smokeless Tobacco: Never Alcohol Use Standard Drinks/Week Comments Yes 0 (1 standard drink = 0.6 oz pur e alcohol) socially [employer] Utilities Answer Date Recorded In the past [...] often do you attend chur ch or church services? More than 4 times per year 11/28/2023 Do you belong to any clubs o r organizations such as mandaeism groups, unions, fraternal or athletic groups, or [...] Answer Date Recorded Total Score 0 12/05/2024 [facility] of Occupat ional Health - Occupational [...] Recorded Do you need help finding a [facility] and/or a training program? No [...] Telephone Encounter - Yarelis Velez CMA - 05/28/2025 1:35 PM EDT ----- Message from Pepito Guajardo DO sent at 12/05/2024 7:17 PM EST ----- BP recheck * Telephone Encounter - Yarelis Velez CMA - 05/28/2025 1:35 PM EDT ----- Message from Pepito Guajardo DO sent at 12/05/2024 7:17 PM EST ----- BP recheck documented in this encounter Plan of Treatment Upcoming Encounters Date Type Department Care Team (Late st Contact Info) Description 07/04/2025 9:30 AM EDT Office Visit [facility] - Family Medicine [address] [place] [address] Pepito Guajardo DO [address] [facility] [place] [address] 12/04/2025 11:00 AM EST Office Visit [facility] [address] [place] [address] documented as of this encounter Visit Diagnoses Not on filedocumented in this encounter Additional Health Concerns Assessment Noted Time PHQ-9 Depression Total Score: 0 12/05/19 25 12:56 PM EST documented as of this encounter Care Teams Audio Technician Relationship Specialty Start Date End Date Pepito Guajardo DO [address] [place] [address] PCP - General Internal Medicine 07/17/17 documented as of this encounter
--- OUTSIDE RECORDS SUMMARY | 2025-06-06 12:06 | XMS_ITS | Encounter Summary ---
Author Organization [employer] Address [facility] [id number] [address] [place] [address] Care Team Providers Care Research Specialist Name Role Phone Pepito Guajardo Primary Care Provider [phone] Encounter Details Date Type Department Care Team (Late st Contact Info) Description 03/13/2024 Telephone [facility] - [facility] Medicine [address] [place] [phone] Fanny Kinsey CMA Social History Tobacco Use Types Packs/Day Years Used Date Smoking Tobacco: Never Smokeless Tobacco: Never Alcohol Use Standard Drinks/Week Comments Yes 0 (1 standard drink = 0.6 oz pur e alcohol) socially [employer] Utilities Answer Date Recorded In the past [...] often do you attend chur ch or worship services? More than 4 times per year 11/28/2023 Do you belong to any clubs o r organizations such as cheondoism groups, unions, fraternal or athletic groups, or [...] Answer Date Recorded Total Score 0 11/28/2023 [facility] of Occupat ional Health - Occupational Stress [...] Recorded Do you need help finding a [facility] and/or a training program? No [...] encounter Miscellaneous Notes * Telephone Encounter - Fanny Kinsey CMA - 03/13/2024 9:48 AM EDT Patient called and rescheduled her Colonoscopy from March 27 at 9:00am to April 24 at 9:00am. Her Churn Operator Margarine told her to ask you about a prep with low fluids. * Telephone Encounter - Pepito Guajardo DO - 03/13/2024 9:48 AM EDT Message noted. She rescheduled again * Telephone Encounter - Fanny Kinsey CMA - 03/13/2024 9:48 AM EDT Patient stopped in because her SuTabs were not sent in yet. Can you send them to [facility]? * Telephone Encounter - Pepito Guajardo DO - 03/13/2024 9:48 AM EDT Message noted. Rx Sutab sent to pharmacy. H&P done. documented in this encounter Plan of Treatment Upcoming Encounters Date Type Department Care Team (Late st Contact Info) Description 07/04/2025 9:30 AM EDT Office Visit [facility] - Family Medicine [address] [place] [address] Pepito Guajardo DO [address] [facility] [address] 12/04/2025 11:00 AM EST Office Visit [facility] - Family Medicine [address] [facility] [place] [address] documented as of this encounter Visit Diagnoses Not on filedocumented in this encounter Additional Health Concerns Assessment Noted Time PHQ-9 Depression Total Score: 0 11/28/19 24 2:48 PM EST documented as of this encounter Care Teams Research Specialist Relationship Specialty Start Date End Date Pepito Guajardo DO [address] [place] [address] PCP - General Internal Medicine 07/17/17 documented as of this encounter
--- OUTSIDE RECORDS SUMMARY | 2025-06-06 12:06 | XMS_ITS | Encounter Summary ---
Author Organization [employer] Address [id number] [address] [place] [address] Care Team Providers Care Cork Tile Floor Layer Name Role Phone Pepito Guajardo Primary Care Provider [phone] Encounter Details Date Type Department Care Team (Late st Contact Info) Description 03/26/2025 Orders Only [facility] - Family Medicine [address] [place] [address] Fanny Kinsey CMA Encounter for screening mammogram for malignant neoplasm of breast Social History Tobacco Use Types Packs/Day Years Used Date Smoking Tobacco: Never Smokeless Tobacco: Never Alcohol Use Standard Drinks/Week Comments Yes 0 (1 standard drink = 0.6 oz pur e alcohol) socially [employer] Utilities Answer Date Recorded In the past [...] often do you attend chur ch or congregational services? More than 4 times per year 11/28/2023 Do you belong to any clubs o r organizations such as shinto groups, unions, fraternal or athletic groups, or [...] Answer Date Recorded Total Score 0 12/05/2024 [facility] [place] of Occupat ional Health - Occupational Stress [...] Recorded Do you need help finding a [facility] career center and/or a training program? [...] Medicine - Family Medicine [address] [place] [address] Pepito Guajardo DO [address] [place] [address] 12/04/2025 11:00 AM EST Office Visit [facility] [address] [place] [address] documented as of this encounter Procedures Procedure Name Priority Date/Time Associated Diagnosis Comments MAMM SCREENING BILATERAL W CAD Routine 03/26/2025 1:43 PM EDT Encounter for screening mammogram for malignant neoplasm of breast documented in this encounter Results * Mammography screening bilateral with CAD (03/26/2025 1:43 PM EDT) Anatomical Region Laterality Modality Breast Bilateral Mammography Pepito Guajardo DO [employer] MAMMOGRAPHY ORDERABLES Final Result documented in this encounter Visit Diagnoses Diagnosis Encounter for screening mammogram for malignant neoplasm of breast documented in this encounter Additional Health Concerns Assessment Noted Time PHQ-9 Depression Total Score: 0 12/05/19 25 12:56 PM EST documented as of this encounter Care Teams Cork Tile Floor Layer Relationship Specialty Start Date End Date Pepito Guajardo DO [address] [place] [address] PCP - General Internal Medicine 07/17/17 documented as of this encounter
--- OUTSIDE RECORDS SUMMARY | 2025-06-06 12:06 | XMS_ITS | Encounter Summary ---
Author Organization [employer] s tem Address [facility] [place]-[id number] [address] [place] [address] Care Team Providers Care Silverer Name Role Phone Pepito Guajardo Primary Care Provider [phone] Encounter Details Date Type Department Care Team (Late st Contact Info) Description 02/08/2024 Telephone [facility] Internal [facility] - Family Medicine [address] [place] [phone] Fanny Kinsey CMA Social History Tobacco Use Types Packs/Day Years Used Date Smoking Tobacco: Never Smokeless Tobacco: Never Alcohol Use Standard Drinks/Week Comments Yes 0 (1 standard drink = 0.6 oz pur e alcohol) socially [employer] Utilities Answer Date Recorded In the past [...] often do you attend chur ch or evangelical services? More than 4 times per year 11/28/2023 Do you belong to any clubs o r organizations such as presybeterian groups, unions, fraternal or athletic groups, or [...] Answer Date Recorded Total Score 0 11/28/2023 [facility] ional [facility] - Occupational Stress [...] Recorded Do you need help finding a [facility] career center and/or a training program? No [...] Telephone Encounter - Fanny Kinsey CMA - 02/08/2024 10:41 AM EDT This patient is scheduled for her Screening Colonoscopy on March 27 at 9:00am. She would like the SuPrep called into [facility] * Telephone Encounter - Pepito Guajardo DO - 02/08/2024 10:41 AM EDT Message noted. This was moved to March documented in this encounter Plan of Treatment Upcoming Encounters Date Type Department Care Team (Late st Contact Info) Description 07/04/2025 9:30 AM EDT Office Visit [facility] - Family Medicine [address] [place] [address] Pepito Guajardo DO [address] [facility] [place] [address] 12/04/2025 11:00 AM EST Office Visit [facility] - Family Medicine [address] [place] [address] documented as of this encounter Visit Diagnoses Not on filedocumented in this encounter Additional Health Concerns Assessment Noted Time PHQ-9 Depression Total Score: 0 11/28/19 24 2:48 PM EST documented as of this encounter Care Teams Silverer Relationship Specialty Start Date End Date Pepito Guajardo DO [address] [place] [address] PCP - General Internal Medicine 07/17/17 documented as of this encounter
--- OUTSIDE RECORDS SUMMARY | 2025-06-06 12:06 | XMS_ITS | Encounter Summary ---
Author Organization [employer] s tem Address [facility] [id number] [address] [place] [address] Care Team Providers Care Mash Filter Cloth Changer Name Role Phone Pepito Guajardo DO Primary Care Provider [phone] Encounter Details Date Type Department Care Team (Late st Contact Info) Description 12/21/2023 Orders Only [facility] Internal Medicine - Family Medicine [address] [place] [phone] Pepito Guajardo DO [address] [place] [address] Encounter for screening mammogram for malignant neoplasm of breast Social History Tobacco Use Types Packs/Day Years Used Date Smoking Tobacco: Never Smokeless Tobacco: Never Alcohol Use Standard Drinks/Week Comments Yes 0 (1 standard drink = 0.6 oz pur e alcohol) socially [facility] Utilities Answer Date Recorded In the past 12 months has [employer], gas, oil, or water [employer] threatened to shut off services in your [...] How often do you attend chur or pentecostal services? More than 4 times per year 11/28/2023 Do you belong to any clubs o r organizations such as worship groups, unions, fraternal or athletic groups, or [...] Answer Date Recorded Total Score 0 11/28/2023 [facility] of Occupat ional Health - Occupational [...] Recorded Do you need help finding a [facility] career center and/or a training program? [...] Description 07/04/2025 9:30 AM EDT [facility] Family [facility] [address] [place] [address] Pepito Guajardo DO [address] [place] [address] 12/04/2025 11:00 AM EST Office Visit [facility] - Family Medicine [address] [place] [address] documented as of this encounter Procedures Procedure Name Priority Date/Time Associated Diagnosis Comments MAMM SCREENING BILATERAL W CAD Routine 12/20/2023 Encounter for screening mammogram for malignant neoplasm of breast documented in this encounter Results * Mammography screening bilateral with CAD (12/20/2023) Anatomical Region Laterality Modality Breast Bilateral Mammography Pepito Guajardo DO IM MAMMOGRAPHY ORDERABLES Final Result documented in this encounter Visit Diagnoses Diagnosis Encounter for screening mammogram for malignant neoplasm of breast documented in this encounter Additional Health Concerns Assessment Noted Time PHQ-9 Depression Total Score: 0 11/28/19 24 2:48 PM EST documented as of this encounter Care Teams Mash Filter Cloth Changer Relationship Specialty Start Date End Date Pepito Guajardo DO [address] [place] [address] PCP - General Internal Medicine 07/17/17 documented as of this encounter
--- OUTSIDE RECORDS SUMMARY | 2025-06-06 12:06 | XMS_ITS | Encounter Summary ---
Author Organization [employer] s tem Address [facility] [place]-[id number] [address] [place] [address] Care Team Providers Care Ribbon Hand Name Role Phone Pepito Guajardo Primary Care Provider [phone] Encounter Details Date Type Department Care Team (Late st Contact Info) Description 05/27/2024 Telephone [facility] Internal Medicine - Family Medicine [address] [place] [phone] Radhika Martinez CMA Social History Tobacco Use Types Packs/Day Years Used Date Smoking Tobacco: Never Smokeless Tobacco: Never Alcohol Use Standard Drinks/Week Comments Yes 0 (1 standard drink = 0.6 oz pur e alcohol) socially [employer] Utilities Answer Date Recorded In the past [...] often do you attend chur ch or taoism services? More than 4 times per year 11/28/2023 Do you belong to any clubs o r organizations such as baptist groups, unions, fraternal or athletic groups, or [...] Date Recorded Total Score 0 11/28/2023 [facility] of Occupat ional Health - Occupational [...] Recorded Do you need help finding a [facility] career center and/or a training [...] Internal Medicine - Family Medicine [address] [place] [address] Pepito Guajardo DO [address] [place] [address] 12/04/2025 11:00 AM EST Office Visit [facility] - Family Medicine [address] [place] [address] documented as of this encounter Visit Diagnoses Not on filedocumented in this encounter Additional Health Concerns Assessment Noted Time PHQ-9 Depression Total Score: 0 11/28/19 24 2:48 PM EST documented as of this encounter Care Teams Ribbon Hand Relationship Specialty Start Date End Date Pepito Guajardo DO [address] [place] [address] PCP - General Internal Medicine 07/17/17 documented as of this encounter
--- OUTSIDE RECORDS SUMMARY | 2025-06-06 12:06 | XMS_ITS | Encounter Summary ---
Author Organization [facility] Address [address] [place] [address] Care Team Providers Care Salvage Inspector Name Role Phone Unavailable Primary Care Provider [...] Holcomb M.D. 03/17/2025 9:47 AM Dictation Location: [facility] Dictated By: Jose Holcomb MD 03/17/25 0945 Signed By: <Electronically signed by Jose Holcomb MD in [place]> 03/17/25 0947 Narrative 03/17/2025 9:50 AM EDT [facility] [address] [place] [address] [address] [place] [address] Mammography Report Signed Patient: Lesvia Fritz I MR#: [id number] : 1950 Acct:[id number] Age/Sex: 74 / F Adm Date: 03/17/25 Loc: [place] Room: Type: REG CLI Attending Dr: Referral Self Ordering Provider: SELF,REFERRAL Date of Service: 03/17/25 Procedure(s): MM screening mammo BI w/CAD Accession Number(s): ([id number]) MM/MM screening mammo BI w/CAD: SCREENING Copies [...] w/CAD Procedure Note Radiology, Radiologist, - 03/17/2025 [facility] [address] [place] [address] [address] [place] [address] Mammography Report Signed Patient: Lesvia Fritz IMR#: [id number] : 1950Acct:[id number] Age/Sex: 74 / FAdm Date: 03/17/25 Loc: [place] Room:Type: REG CLI Attending Dr: Referral Self Ordering Provider: SELF,REFERRAL Date of Service: 03/17/25 Procedure(s): MM screening mammo BI w/CAD Accession Number(s): ([id number]) MM/MM screening mammo BI w/CAD:SCREENING Copies to: [...] Holcomb M.D. 03/17/2025 9:47 AM Dictation Location: [facility] Dictated By: Jose Holcomb MD 03/17/25 0945 Signed By: <Electronically signed by Jose Holcomb MD in OV> 03/17/25 0908 us Generic External Data Provider IMG BI PROCEDURES Final Result documented in this encounter Visit Diagnoses Not on filedocumented in this encounter
--- OUTSIDE RECORDS SUMMARY | 2025-06-06 12:06 | XMS_ITS | Encounter Summary ---
Author Organization [employer] s tem Address [facility] [place]-[id number] [address] [place] [address] Care Team Providers Care Lathe Set Up Person Name Role Phone Pepito Guajardo DO Primary Care Provider [phone] Encounter Details Date Type Department Care Team (Late st Contact Info) Description 08/21/2024 Orders Only [facility] Internal Medicine - Family Medicine [address] [place] [address] Pepito Guajardo DO [address] [place] [address] Social History Tobacco Use Types Packs/Day Years Used Date Smoking Tobacco: Never Smokeless Tobacco: Never Alcohol Use Standard Drinks/Week Comments Yes 0 (1 standard drink = 0.6 oz pur e alcohol) socially [facility] Utilities Answer Date Recorded In the past 12 months has [employer], gas, oil, or water [employer] threatened to shut off services in your [...] any clubs o r organizations such as taoism groups, unions, fraternal or athletic groups, or [...] PHQ-2 Answer Date Recorded Total Score 0 08/08/2024 [facility] Questionnaire Answer Date Recorded [...] Recorded Do you need help finding a [facility] career [facility] and/or a training program? No 11/28/2023 Hunger Screening Answer Date Recorded Within the past 12 months we worried whether our food would run out before we got money to buy more. Never True 08/08/2024 Within the past 12 months th e food we bought just didn't last and we didn't have money to get more. Never True 08/08/2024 Purpose - Life Answer Date Recorded I [...] - Family Medicine [address] [place] [address] Pepito Guajardo DO [address] [place] [address] 12/04/2025 11:00 AM EST Office Visit [facility] - Family Medicine [address] [place] [address] documented as of this encounter Visit Diagnoses Not on filedocumented in this encounter Additional Health Concerns Assessment Noted Time PHQ-9 Depression Total Score: 0 08/08/20 24 12:55 PM EDT documented as of this encounter Care Teams Lathe Set Up Person Relationship Specialty Start Date End Date Pepito Guajardo DO [address] [place] [address] PCP - General Internal Medicine 07/17/17 documented as of this encounter
--- OUTSIDE RECORDS SUMMARY | 2025-06-06 12:06 | XMS_ITS | Encounter Summary ---
Author Organization [facility] [facility] Address [facility] [place]-[id number] [address] [place] [address] Care Team Providers Care Customer Support Technician Name Role Phone Pepito Guajardo DO Primary Care Provider [phone] Encounter Details Date Type Department Care Team (Late st Contact Info) Description 11/13/2023 Orders Only [facility] Internal Medicine - Family Medicine [address] [place] [address] Pepito Guajardo DO [address] [place] [address] Social History Tobacco Use Types Packs/Day Years Used Date Smoking Tobacco: Never Smokeless Tobacco: Never Alcohol Use Standard Drinks/Week Comments Yes 0 (1 standard drink = 0.6 oz pur e alcohol) socially PHQ-2 Answer Date Recorded Total Score 0 11/10/2023 Childcare Answer Date Recorded Childcare Unknown 04/10/2019 Employment Answer Date Recorded Employment Unknown 04/10/2019 Hunger Screening Answer Date Recorded Within the past 12 months we worried whether our food would run out before we got money to buy more. Never True 11/10/2023 Within the past 12 months th e food we bought just didn't last and we didn't have money to get more. Never True 11/10/2023 Purpose - Life Answer Date Recorded Purpose [...] Medicine - Family Medicine [address] [place] [address] Pepito Guajardo DO [address] [place] [address] 12/04/2025 11:00 AM EST Office Visit [facility] - Family Medicine [address] [place] [address] documented as of this encounter Procedures Procedure Name Priority Date/Time Associated Diagnosis Comments HM COLONOSCOPY Routine 11/07/2012 2:58 PM EST documented in this encounter Visit Diagnoses Not on filedocumented in this encounter Additional Health Concerns Assessment Noted Time PHQ-9 Depression Total Score: 0 11/10/19 24 9:23 AM EST documented as of this encounter Care Teams Customer Support Technician Relationship Specialty Start Date End Date Pepito Guajardo DO [address] [place] [address] PCP - General Internal Medicine 07/17/17 documented as of this encounter
--- OUTSIDE RECORDS SUMMARY | 2025-06-06 12:06 | XMS_ITS | Encounter Summary ---
Author Organization [employer] Address [facility] [place]-[id number] [address] [place] [address] Care Team Providers Care Chief Procurement Officer Name Role Phone Pepito Guajadro Primary Care Provider [phone] Encounter Details Date Type Department Care Team (Late st Contact Info) Description 11/27/2023 Orders Only [facility] Internal Medicine - Family Medicine [address] [place] [address] External, Scanning Provider Social History Tobacco Use Types Packs/Day Years Used Date Smoking Tobacco: Never Smokeless Tobacco: Never Alcohol Use Standard Drinks/Week Comments Yes 0 (1 standard drink = 0.6 oz pur e alcohol) socially [employer] Utilities Answer Date Recorded In the past [...] often do you attend chur ch or mu-ism services? More than 4 times per year 11/28/2023 Do you belong to any clubs o r organizations such as anabaptism groups, unions, fraternal or athletic groups, or [...] Answer Date Recorded Total Score 0 11/28/2023 [facility] of Occupat ional Health - Occupational Stress [...] Recorded Do you need help finding a l al career center and/or a training program? No [...] as of this encounter Functional Status * Audit-C Score Answer Date of Assessment Author 3 11/28/2023 3:00 PM Annie Hernandez * Question Answer Date of Assessment Author Q1: How often do you have a drink containing alcohol? 2-3 times a week 11/28/2023 3:00 PM Annie Hernandez Q2: How many drinks containing alcohol do you have on a typical day when you are drinking? 1 or 2 11/28/2023 3:00 PM Annie Hernandez Q3: How often do you have six or more drinks on one occasion? Never 11/28/2023 3:00 PM Annie Hernandez documented as of this encounter Progress Notes * Pepito Guajardo DO - 11/27/2023 3:25 PM EST KUB No evidence of stones documented in this encounter Plan of Treatment Upcoming Encounters Date Type Department Care Team (Late st Contact Info) Description 07/04/2025 9:30 AM EDT Office Visit [facility] Medicine - Family Medicine [address] [place] [address] Pepito Guajardo DO [address] [place] [address] 12/04/2025 11:00 AM EST Office Visit [facility] Internal Medicine - Family Medicine [address] [place] [address] documented as of this encounter Visit Diagnoses Not on filedocumented in this encounter Additional Health Concerns Assessment Noted Time PHQ-9 Depression Total Score: 0 11/10/19 24 9:23 AM EST documented as of this encounter Care Teams Chief Procurement Officer Relationship Specialty Start Date End Date Pepito Guajardo DO [address] [place] [address] PCP - General Internal Medicine 07/17/17 documented as of this encounter
--- OUTSIDE RECORDS SUMMARY | 2025-06-06 12:06 | XMS_ITS | Encounter Summary ---
Author Organization [employer] s tem Address [facility] [place][id number] [address] [place] [address] Care Team Providers Care Hot Braider Name Role Phone Pepito Guajardo DO Primary Care Provider [phone] Encounter Details Date Type Department Care Team (Late st Contact Info) Description 05/27/2024 Orders Only [facility] Internal Medicine - Family Medicine [address] [place] [address] Pepito Guajardo DO [address] [place] [address] Colon cancer screening (Primary Dx) Social History Tobacco Use Types Packs/Day Years Used Date Smoking Tobacco: Never Smokeless Tobacco: Never Alcohol Use Standard Drinks/Week Comments Yes 0 (1 standard drink = 0.6 oz pur e alcohol) socially [employer] [employer] Utilities Answer Date Recorded In the past 12 months has [employer], gas, oil, or water [employer] threatened to shut off services in your [...] any clubs o r organizations such as caodaism groups, unions, fraternal or athletic groups, or [...] Answer Date Recorded Total Score 0 11/28/2023 [facility] of Occupat ional Health - Occupational [...] Recorded Do you need help finding a [facility] career center and/or a training program? No [...] - Family Medicine [address] [place] [address] Pepito Guajardo DO [address] [place] [address] 12/04/2025 11:00 AM EST Office Visit [facility] Internal Medicine - Family Medicine [address] [place] [address] documented as of this encounter Visit Diagnoses Diagnosis Colon cancer screening- Primary Special screening for malignant neoplasms, colon documented in this encounter Additional Health Concerns Assessment Noted Time PHQ-9 Depression Total Score: 0 11/28/19 24 2:48 PM EST documented as of this encounter Care Teams Hot Braider Relationship Specialty Start Date End Date Pepito Guajardo DO [address] [place] [address] PCP - General Internal Medicine 07/17/17 documented as of this encounter
--- OUTSIDE RECORDS SUMMARY | 2025-06-06 12:06 | XMS_ITS | Encounter Summary ---
Author Organization [employer] Address [facility] [id number] [address] [place] [address] Care Team Providers Care Network Control Supervisor Name Role Phone Pepito Guajardo DO Primary Care Provider Encounter Details Date Type Department Care Team (Late st Contact Info) Description 06/28/2024 Orders Only [facility] Internal Medicine - Family Medicine [address] [place] [address] Ref Prov, [place] [address] Social History Tobacco Use Types Packs/Day Years Used Date Smoking Tobacco: Never Smokeless Tobacco: Never Alcohol Use Standard Drinks/Week Comments Yes 0 (1 standard drink = 0.6 oz pur e alcohol) socially [employer] Utilities Answer Date Recorded In the past [...] often do you attend chur ch or anabaptist services? More than 4 times per year 11/28/2023 Do you belong to any clubs o r organizations such as pentecostal groups, unions, fraternal or athletic groups, or [...] Answer Date Recorded Total Score 0 11/28/2023 [facility] Occupat ional Health - Occupational Stress [...] Recorded Do you need help finding a [facility] career center and/or a training [...] Internal Medicine - Family Medicine [address] [facility] [place] [place] [address] Pepito Guajardo DO [address] [place] [address] 12/04/2025 11:00 AM EST Office Visit [facility] Medicine - Family Medicine [address] [place] [address] documented as of this encounter Procedures Procedure Name Priority Date/Time Associated Diagnosis Comments US RETROPERITNL ABD, LTD Routine 2023 1:30 PM EDT documented in this encounter Results * US RETROPERITNL ABD, LTD (06/27/2024 1:30 PM EDT) us Not In System Ref Prov PROCEDURE/MINOR SURGICAL ORDERABLES Final Result MANUALLY TRANSCRIBED RESULTS documented in this encounter Visit Diagnoses Not on filedocumented in this encounter Additional Health Concerns Assessment Noted Time PHQ-9 Depression Total Score: 0 11/28/19 24 2:48 PM EST documented as of this encounter Care Teams Network Control Supervisor Relationship Specialty Start Date End Date Pepito Guajardo DO [address] [place] [address] PCP - General Internal Medicine 07/17/17 documented as of this encounter
--- OUTSIDE RECORDS SUMMARY | 2025-06-06 12:07 | XMS_ITS | Encounter Summary ---
Author Organization [employer] s tem Address [facility] [place]-[id number] [address] [place] [address] Care Team Providers Care Sales Designer Name Role Phone Pepito Guajardo DO Primary Care Provider [phone] Encounter Details Date Type Department Care Team (Late st Contact Info) Description 11/06/2023 Orders Only [facility] Internal Medicine - Family Medicine [address] [place] [address] Pepito Guajardo DO [address] [place] [address] Hypothyroidism, unspecified type (Primary Dx); Hyperlipidemia, unspecified hyperlipidemia type Social History Tobacco Use Types Packs/Day Years [...] Medicine - Family Medicine [address] [place] [address] Pepito Guajardo, [address] [place] [address] 12/04/2025 11:00 AM EST Office Visit [facility] Medicine - Family Medicine [address] [place] [address] documented as of this encounter Results * Thyroid profile includes TSH FT4 (11/08/2023) Pathologist [facility] TSH 2.289 MANUALLY TRANSCRIBED RESULTS FREET4 {PL} 1.32 MANUALLY TRANSCRIBED RESULTS 11/08/2023 Pepito Chairezkennedy LAB BLOOD ORDERABLES Final Resul t Performing Organization Address City/[facility] de Phone Number MANUALLY TRANSCRIBED RESULTS * Lipid profile (11/08/2023) Pathologist [facility] External Cholesterol 180 MANUALLY TRANSCRIBED RESULTS External Hdl Cholesterol 98 MANUALLY TRANSCRIBED RESULTS External Ldl (Calc) 71.0 MANUALLY TRANSCRIBED RESULTS External Triglycerides 55 MANUALLY TRANSCRIBED RESULTS External Very Low Lipoprotein 11.0 MANUALLY TRANSCRIBED RESULTS 11/08/2023 Pepito Chairezkennedy [facility] LAB BLOOD ORDERABLES Final Resul t Performing Organization Address [facility] Co de Phone Number MANUALLY TRANSCRIBED RESULTS * Comprehensive metabolic panel (11/08/2023) External Albumin 3.8 MAN UALLY TRANSCRIBED RESULTS External Alt Sgpt 22 MANUALLY TRANSCRIBED RESULTS External Anion Gap 10.4 MANUALLY TRANSCRIBED RESULTS External Ast 18 MANUALL Y TRANSCRIBED RESULTS External Blood Urea Nitrogen Bun 22.0 MANUALLY TRANSCRIBED RESULTS External Calcium Ca 9.1 MANUALLY TRANSCRIBED RESULTS External Chloride 101 MANUALLY TRANSCRIBED RESULTS External Co2 / Carbon Dioxide 32.3 MANUALLY TRANSCRIBED RESULTS External Creatinine 0.92 MANUALLY TRANSCRIBED RESULTS External Gfr Amer >60 MANUALLY TRANSCRIBED RESULTS External Gfr Non Amer 60 MANUALLY TRANSCRIBED RESULTS External Alkaline Phosphatase 85 MANUALLY TRANSCRIBED RESULTS External Glucose Fasting Or Random (Fbs) 96 MANUALLY TRANSCRIBED RESULTS External Potassium K 3.7 MANUALLY TRANSCRIBED RESULTS External Sodium Na 140 MANUALLY TRANSCRIBED RESULTS Total Bilirubin 1.2 MANU ALLY TRANSCRIBED RESULTS External Total Protein 7.1 MANUALLY TRANSCRIBED RESULTS Blood 11/08/2023 Pepito Guajardo DO LAB BLOOD ORDERABLES Final Resul t MANUALLY TRANSCRIBED RESULTS documented in this encounter Visit Diagnoses Diagnosis Hypothyroidism, unspecified type- Primary Hyperlipidemia, unspecified hyperlipidemia type documented in this encounter Additional Health Concerns Assessment Noted Time PHQ-9 Depression Total Score: 0 09/27/20 23 9:01 AM EST documented as of this encounter Care Teams Sales Designer Relationship Specialty Start Date End Date Pepito Guajardo DO [address] [place] [address] PCP - General Internal Medicine 07/17/17 documented as of this encounter
--- OUTSIDE RECORDS SUMMARY | 2025-06-06 12:07 | XMS_ITS | Encounter Summary ---
Author Organization [employer] s tem Address [id number] [address] [place] [address] Care Team Providers Care Protection Agent Name Role Phone Pepito Guajardo DO Primary Care Provider [phone] Reason for Visit * Reason Comments Med Refill Encounter Details Date Type Department Care Team (Late st Contact Info) Description 05/25/2025 Refill [facility] Internal Medicine - Family Medicine [address] [phone] Pepito Guajardo DO [address] [place] [address] Hyperlipidemia, unspecified Social History Tobacco Use Types Packs/Day Years Used Date Smoking Tobacco: Never Smokeless Tobacco: Never Alcohol Use Standard Drinks/Week Comments Yes 0 (1 standard drink = 0.6 oz pur e alcohol) socially [facility] Utilities Answer Date Recorded In the past 12 months has [employer], [employer], oil, or water [employer] threatened to shut off services in your [...] How often do you attend chur or protestant services? More than 4 times per year 11/28/2023 Do you belong to any clubs o r organizations such as mosque groups, unions, fraternal or athletic groups, or [...] Answer Date Recorded Total Score 0 12/05/2024 [facility] - Occupational [...] Do you need help finding a l ocal career center and/or a training program? No [...] Internal Medicine - Family Medicine [address] [place] [address] Pepito Guajardo DO [address] [place] [address] 12/04/2025 11:00 AM EST Office Visit [facility] Internal Medicine - Family Medicine [address] [place] [address] documented as of this encounter Visit Diagnoses Diagnosis Hyperlipidemia, unspecified documented in this encounter Additional Health Concerns Assessment Noted Time PHQ-9 Depression Total Score: 0 12/05/19 25 12:56 PM EST documented as of this encounter Care Teams Protection Agent Relationship Specialty Start Date End Date Pepito Guajardo DO [address] [place] [address] PCP - General Internal Medicine 07/17/17 documented as of this encounter
--- OUTSIDE RECORDS SUMMARY | 2025-06-06 12:07 | XMS_ITS | Encounter Summary ---
Author Organization [employer] s tem Address [facility] [id number] [address] [place] [address] Care Team Providers Care Early Childhood Education Coordinator Name Role Phone Pepito Guajardo DO Primary Care Provider [phone] Encounter Details Date Type Department Care Team (Late st Contact Info) Description 11/06/2023 Telephone [facility] Internal Medicine - Family Medicine [address] [place] [phone] Pepito Guajardo DO [address] [place] [address] Social History Tobacco Use Types Packs/Day Years [...] encounter Miscellaneous Notes * Telephone Encounter - Fanta Darby - 11/06/2023 11:54 AM EST Patient is coming in for cv recheck and would like labs sent to [facility] * Telephone Encounter - Pepito Guajardo DO - 11/06/2023 11:54 AM EST Orders are in her chart. Please fax to [place] * Telephone Encounter - Fantamadisyn Darby - 11/06/2023 11:54 AM EST Sent 11/07 documented in this encounter Plan of Treatment Upcoming Encounters Date Type Department Care Team (Late st Contact Info) Description 07/04/2025 9:30 AM EDT Office Visit [facility] Internal Medicine - Family Medicine [address] [place] [address] Pepito Guajardo DO [address] [place] [address] 12/04/2025 11:00 AM EST Office Visit [facility] Internal Medicine - Family Medicine [address] [place] [address] documented as of this encounter Visit Diagnoses Not on filedocumented in this encounter Additional Health Concerns Assessment Noted Time PHQ-9 Depression Total Score: 0 09/27/20 23 9:01 AM EST documented as of this encounter Care Teams Early Childhood Education Coordinator Relationship Specialty Start Date End Date Pepito Guajardo DO [address] [facility] [place] [address] PCP - General Internal Medicine 07/17/17 documented as of this encounter
--- OUTSIDE RECORDS SUMMARY | 2025-06-06 12:07 | XMS_ITS | Encounter Summary ---
Author Organization [facility] Address [facility] [id number] [address] [place] [address] Care Team Providers Care Die Mounter Name Role Phone Pepito Guajardo DO Primary Care Provider [phone] Encounter Details Date Type Department Care Team (Late st Contact Info) Description 11/08/2023 Orders Only [facility] Internal Medicine - Family Medicine [address] [place] [phone] Pepito Guajardo DO [address] [place] [address] Hypothyroidism, unspecified type; Hyperlipidemia, unspecified hyperlipidemia type Social History Tobacco [...] - Family Medicine [address] [place] [address] Pepito Guajardo, [address] [place] [address] 12/04/2025 11:00 AM EST Office Visit [facility] Internal Medicine - Family Medicine [address] [place] [phone] documented as of this encounter Procedures Procedure Name Priority Date/Time Associated Diagnosis Comments THYROID PROFILE INCLUDES TSH FT4 Routine 11/08/2023 Hypothyroidism, unspecified type LIPID PROFILE Routine 11/08/2023 Hyperlipidemia, unspecified hyperlipidemia type COMPREHENSIVE METABOLIC PANEL Routine 11/08/2023 Hyperlipidemia, unspecified hyperlipidemia type documented in this encounter Results * Comprehensive metabolic panel (11/08/2023) External Albumin [...] DO LAB BLOOD ORDERABLES Final Resul t Performing Organization Address [facility] de Phone Number MANUALLY TRANSCRIBED RESULTS * Lipid profile (11/08/2023) External Cholesterol 180 MANUALLY TRANSCRIBED RESULTS External Hdl Cholesterol 98 MANUALLY TRANSCRIBED RESULTS External Ldl (Calc) 71.0 MANUALLY TRANSCRIBED RESULTS External Triglycerides 55 MANUALLY TRANSCRIBED RESULTS External Very Low Lipoprotein 11.0 MANUALLY TRANSCRIBED RESULTS 11/08/2023 Pepito Guajardo DO LAB BLOOD ORDERABLES Final Resul t Performing Organization Address [facility] de Phone Number MANUALLY TRANSCRIBED RESULTS * Thyroid profile includes TSH FT4 (11/08/2023) TSH 2.289 MANUALLY TRANSCRIBED RESULTS FREET4 {PL} 1.32 MANUALLY TRANSCRIBED RESULTS 11/08/2023 Pepito Guajardo DO LAB BLOOD ORDERABLES Final Resul t Performing Organization Address [facility] de Phone Number MANUALLY TRANSCRIBED RESULTS documented in this encounter Visit Diagnoses Diagnosis Hypothyroidism, unspecified type Hyperlipidemia, unspecified hyperlipidemia type documented in this encounter Additional Health Concerns Assessment Noted Time PHQ-9 Depression Total Score: 0 09/27/20 23 9:01 AM EST documented as of this encounter Care Teams Die Mounter Relationship Specialty Start Date End Date Pepito Guajardo DO [address] [place] [address] PCP - General Internal Medicine 07/17/17 documented as of this encounter
--- OUTSIDE RECORDS SUMMARY | 2025-06-06 12:07 | XMS_ITS | Encounter Summary ---
Author Organization [employer] Address [facility] [id number] [address] [place] [address] Care Team Providers Care Assistant Merchandiser Name Role Phone Pepito Guajardo Primary Care Provider [phone] Reason for Visit * Reason Onset Date Comments Med Refill 10/03/2023 Encounter Details Date Type Department Care Team (Late st Contact Info) Description 10/03/2023 Refill [facility] Internal Medicine - Family Medicine [address] [place] [address] Fanny Kinsey CMA Strain of left hamstring, initial encounter Social History Tobacco Use Types Packs/Day Years Used Date Smoking Tobacco: Never Smokeless Tobacco: Never Alcohol Use Standard Drinks/Week Comments Yes 0 (1 standard drink = 0.6 oz pur e alcohol) socially PHQ-2 Answer Date Recorded Total Score 0 09/27/2023 Childcare Answer Date Recorded Childcare Unknown 04/10/2019 Employment Answer Date Recorded Employment Unknown 04/10/2019 Hunger Screening Answer Date Recorded Within the past 12 months we worried whether our food would run out before we got money to buy more. Never True 09/27/2023 Within the past 12 months th e food we bought just didn't last and we didn't have money to get more. Never True 09/27/2023 Purpose - Life Answer Date Recorded Purpose and direction in life Unknown Comments Unknown Sex and Gender Information Value Date Recorded Sex Assigned at Not on file Legal Sex Female 11:48 AM EDT Gender Identity Not on file Sexual Orientation Not on file documented as of this encounter Miscellaneous Notes * Telephone Encounter - Fanny Kinsey CMA - 10/03/2023 11:24 AM EST Patient wanted to know if she could have one more week of the Prednisone because it worked really good * Telephone Encounter - ALEXANDRE Wyatt - 10/03/2023 11:24 AM EST I did but at a lower dose documented in this encounter Plan of Treatment Upcoming Encounters Date Type Department Care Team (Late st Contact Info) Description 07/04/2025 9:30 AM EDT Office Visit [facility] Internal Medicine - Family Medicine [address] [place] [address] Pepito Guajardo DO [address] [place] [address] 12/04/2025 11:00 AM EST Office Visit [facility] Internal Medicine - Family Medicine [address] [place] [address] documented as of this encounter Visit Diagnoses Diagnosis Strain of left hamstring, initial encounter documented in this encounter Additional Health Concerns Assessment Noted Time PHQ-9 Depression Total Score: 0 09/27/20 23 9:01 AM EST documented as of this encounter Care Teams Assistant Merchandiser Relationship Specialty Start Date End Date Pepito Guajardo DO [address] [place] [address] PCP - General Internal Medicine 07/17/17 documented as of this encounter
--- OUTSIDE RECORDS SUMMARY | 2025-06-06 12:07 | XMS_ITS | Encounter Summary ---
Author Organization [employer] s tem Address [facility] [id number] [address] [place] [address] Care Team Providers Care Foreman Shipping Department Name Role Phone Pepito Guajardo DO Primary Care Provider [phone] Encounter Details Date Type Department Care Team (Late Contact Info) Description 03/31/2023 Orders Only [facility] Internal Medicine - Family Medicine [address] [place] [address] Pepito Guajardo DO [address] [place] [address] Social History Tobacco Use Types Packs/Day Years Used Date Smoking Tobacco: Never Smokeless Tobacco: Never PHQ-2 Answer Date Recorded Total Score 0 03/30/2023 Childcare Answer Date Recorded Childcare Unknown 04/10/2019 [...] Medicine - Family Medicine [address] [place] [phone] Pepito Guajardo DO [address] [place], [place] [address] 12/04/2025 11:00 AM EST Office Visit [facility] Internal Medicine - Family Medicine [address] [place] [address] documented as of this encounter Procedures Procedure Name Priority Date/Time Associated Diagnosis Comments HEPATITIS C(HCV) ANTIBODY W/ REFLEX TO PCR Routine 06/24/2016 COLONOSCOPY Routine 11/07/2012 documented in this encounter Results * Hepatitis C(HCV) Ab w/ Reflex to PCR (06/24/2016) us Pepito Guajardo DO LAB BLOOD ORDERABLES Final Resul t MANUALLY TRANSCRIBED LAB RESULTS * COLONOSCOPY (11/07/2012) us Pepito Guajardo DO HEALTH MAINTENANCE Final Result [facility] EXTERNAL NON-INTERFACED REF LAB [address] [facility] [place] [address] documented in this encounter Visit Diagnoses Not on filedocumented in this encounter Additional Health Concerns Assessment Noted Time PHQ-9 Depression Total Score: 0 03/30/20 23 11:57 AM EDT documented as of this encounter Care Teams Foreman Shipping Department Relationship Specialty Start Date End Date Pepito Guajardo DO [address] [place] [address] PCP - General Internal Medicine 07/17/17 documented as of this encounter
--- OUTSIDE RECORDS SUMMARY | 2025-06-06 12:07 | XMS_ITS | Encounter Summary ---
Author Organization [employer] Address [facility] [id number] [address] [place] [address] Care Team Providers Care Digital Imaging Specialist Name Role Phone Pepito Guajardo DO Primary Care Provider [phone] Reason for Visit * Reason Comments Med Refill Encounter Details Date Type Department Care Team (Late st Contact Info) Description 10/03/2022 Refill [facility] Internal Medicine - Family Medicine [address] [place] [address] Pepito Guajardo DO [address] [place] [address] Hypothyroidism, unspecified Social History Tobacco Use Types Packs/Day [...] Medicine - Family Medicine [address] [place] [address] Pepito Guajardo DO [address] [place] [address] 12/04/2025 11:00 AM EST Office Visit [facility] Internal Medicine - Family Medicine [address] [place] [address] documented as of this encounter Visit Diagnoses Diagnosis Hypothyroidism, unspecified documented in this encounter Care Teams Digital Imaging Specialist Relationship Specialty Start Date End Date Pepito Guajardo DO [address] [place] [address] PCP - General Internal Medicine 07/17/17 documented as of this encounter
--- OUTSIDE RECORDS SUMMARY | 2025-06-06 12:07 | XMS_ITS | Encounter Summary ---
Author Organization [employer] Address [facility] [id number] [address] [place] [address] Care Team Providers Care Herpetologist Name Role Phone Pepito Guajardo DO Primary Care Provider [phone] Reason for Visit * Reason Comments Med Refill Encounter Details Date Type Department Care Team (Late st Contact Info) Description 11/02/2023 Refill [facility] Internal Medicine - Family Medicine [address] [phone] Pepito Guajardo DO [address] [phone] Hyperlipidemia, unspecified Social History Tobacco Use Types [...] Miscellaneous Notes * Telephone Encounter - Fanta Mehnaz - 11/02/2023 11:30 AM EST Sent mychart documented in this encounter Plan of Treatment Upcoming Encounters Date Type Department Care Team (Late st Contact Info) Description 07/04/2025 9:30 AM EDT Office Visit [facility] Internal Medicine - Family Medicine [address] [place] [address] Pepito Guajardo DO [address] [place] [address] 12/04/2025 11:00 AM EST Office Visit [facility] Internal Medicine - Family Medicine [address] [place] [address] documented as of this encounter Visit Diagnoses Diagnosis Hyperlipidemia, unspecified documented in this encounter Additional Health Concerns Assessment Noted Time PHQ-9 Depression Total Score: 0 09/27/20 23 9:01 AM EST documented as of this encounter Care Teams Herpetologist Relationship Specialty Start Date End Date Pepito Guajardo DO [address] [place] [address] PCP - General Internal Medicine 07/17/17 documented as of this encounter
--- OUTSIDE RECORDS SUMMARY | 2025-06-06 12:07 | XMS_ITS | Encounter Summary ---
Author Organization [employer] s tem Address [id number] [address] [place] [address] Care Team Providers Care Tenon Machine Operator Name Role Phone Pepito Guajardo DO Primary Care Provider [phone] Reason for Visit * Reason Comments Med Refill Encounter Details Date Type Department Care Team (Late st Contact Info) Description 05/28/2025 Refill [facility] Internal Medicine - Family Medicine [address] [phone] Pepito Guajardo DO [address] [place] [address] Hypothyroidism, unspecified Social History Tobacco Use Types Packs/Day Years Used Date Smoking Tobacco: Never Smokeless Tobacco: Never Alcohol Use Standard Drinks/Week Comments Yes 0 (1 standard drink = 0.6 oz pur e alcohol) socially [facility] Utilities Answer Date Recorded In the past 12 months has [employer], [employer], oil, or water [employer] threatened to shut off services in your [...] How often do you attend chur or zoroastrian services? More than 4 times per year [...] Answer Date Recorded Total Score 0 12/05/2024 [facility] Occupat ional Health - Occupational [...] Internal Medicine - Family Medicine [address] [place] [address] Pepito Guajardo DO [address] [place] [address] 12/04/2025 11:00 AM EST Office Visit [facility] Internal Medicine - Family Medicine [address] [place] [address] documented as of this encounter Visit Diagnoses Diagnosis Hypothyroidism, unspecified documented in this encounter Additional Health Concerns Assessment Noted Time PHQ-9 Depression Total Score: 0 12/05/19 25 12:56 PM EST documented as of this encounter Care Teams Tenon Machine Operator Relationship Specialty Start Date End Date Pepito Guajardo DO [address] [place] [address] PCP - General Internal Medicine 07/17/17 documented as of this encounter
== END 2025-06-06 12:02 | disposition home or self-care (01) ==
PROVIDERS: PCP Internal Medicine; Visit Provider Urology
DX: N20.0 Calculus of kidney (principal)
CPT/HCPCS: 74018

== ENCOUNTER 2025-07-14 14:46 | Emergency (ER) | payer MEDICARE, SELFPAY ==
[2025-07-14 14:49] VITALS: BP 147/86; PULSE 115; TEMP 36.6; O2SAT 100; BMI 23.0
--- NOTE | 2025-07-14 15:03 | XR_ITS ---
The [address] [address] Patient Name: FERNANDO RAMOS MRN: [id number] date: 1950 Sex: F Assigned Patient Location: ER Current Patient Location: ER Accession/Order Number: [id number] Exam Date: 07/14/2025 16:05 Report Date: 07/14/2025 16:21 At the request of: KIERRA MENDEZ MD Procedure: XR lumbar spine 2-3V XR lumbar spine 2-3V 07/14/2025 4:11 PM SIGNS AND SYMPTOMS: Right flank pain, back pain PROTOCOLS: Frontal and lateral radiograph of the lumbar spine COMPARISON: 06/06/2025 and 08/20/2024 FINDINGS: There is no fracture or destructive lesion. There is 9 mm of anterolisthesis of L4 upon L5. There is moderate disc height loss at L4-5 and L5-S1. The disk spaces are well-preserved. The sacrum and sacroiliac joints are normal. XR/XR lumbar spine 2-3V IMPRESSION: No acute bony injury. There is 9 mm of anterolisthesis of L4 upon L5. This is unchanged. There is moderate disc height loss at L4-5 and L5-S1. Impression dictated by: Sergio Mejia M.D. 07/14/2025 4:21 PM Dictation Location: [place] [address] Electronically authenticated by: [id number] Y Date: 07/14/2025 16:21
[2025-07-14] MEDS: KETOROLAC TROMETHAMINE 30 MG/ML VIAL 15 MG IM (15:13)
[2025-07-14] MEDS: ORPHENADRINE 60 MG/2 ML VIAL IM (15:13)
--- NOTE | 2025-07-14 16:14 | CT_ITS ---
The [address] [address] Patient Name: FERNANDO RAMOS MRN: [id number] date: 1950 Sex: F Assigned Patient Location: ER Current Patient Location: ER Accession/Order Number: [id number] Exam Date: 07/14/2025 16:22 Report Date: 07/14/2025 16:50 At the request of: KIERRA MENDEZ MD Procedure: CT lumbar spine wo con CT lumbar spine wo con 07/14/2025 4:29 PM History:Right-sided flank and gluteal pain radiating into right lower extremity TECHNIQUE: Multi detector CT axial slices of the lumbar spine were obtained without IV contrast. Volumetric acquisition sagittal, coronal, and 3-D reconstructions were performed and reviewed on a separate workstation. CT was performed with one or more of the following dose reduction techniques: Automated exposure control, adjustment of the mA and/or kV according to patient size, or use of iterative reconstruction technique. COMPARISON: 08/20/2024 FINDINGS: There is preservation of the vertebral body heights and intervertebral discs. No fractures or dislocations are seen. There is 8 mm of anterolisthesis of L4 upon L5 with moderate disc height loss. There is mild disc height loss at L5-S1. There is a focal right central disc extrusion at L4-L5 extending into the right subarticular zone presumably causing mass effect on the traversing right L5 nerve roots. There is at least moderate narrowing of spinal canal with moderate to severe right neural foraminal stenosis as a result. There is facet hypertrophy with disc material contributing to moderate left neural foraminal narrowing. Disc and facet degenerative changes contribute to lesser degrees of spinal canal or neural foraminal narrowing at L2-L3 and L3-L4. This is worse when compared to the prior CT. The paraspinous soft tissues are within normal limits. The visualized lung parenchyma is unremarkable. There is a 5 mm calcified nonobstructing stone in the left renal collecting system. Smaller nonobstructing left renal calculi are noted. There are 1 to 2 mm stones near the inferior pole collecting system on the right. Stones are noted in the gallbladder lumen. Atherosclerotic changes are noted in the abdominal aorta and its branches. CT/CT lumbar spine wo con IMPRESSION: There is 8 mm of anterolisthesis of L4 upon L5 with moderate disc height loss. There is a focal right central disc extrusion at L4-L5 extending into the right subarticular zone presumably causing mass effect on the traversing right L5 nerve roots. There is at least moderate narrowing of spinal canal with moderate to severe right neural foraminal stenosis as a result. There is facet hypertrophy with disc material contributing to moderate left neural foraminal narrowing. Impression dictated by: Sergio Mejia M.D. 07/14/2025 4:50 PM Dictation Location: [place] [address] Electronically authenticated by: [id number] Y Date: 07/14/2025 16:50
--- NOTE | 2025-07-14 16:48 | ED.BACK1 ---
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, patient mentioned that the pain is radiating down to her right hip and right leg mostly toward the knee, she have no fall or trauma She did try [id number] medication at home that did not help Patient mentioned that she is not able to stand up straight because of the pain No weakness, incontinence of urine or stool Related Data Home Medications ?Medication ?Instructions ?Recorded ?Confirmed atorvastatin 10 mg tablet 10 mg PO DAILY 07/14/25 07/14/25 latanoprost 0.005 % eye drops 1 drp ophthalmic (eye) .QHS 07/14/25 07/14/25 levothyroxine 75 mcg tablet 75 mcg PO DAILY 07/14/25 07/14/25 metoprolol succinate 50 mg 50 mg PO BID 07/14/25 07/14/25 tablet,extended release 24 hr spironolactone 25 0.5 tab PO DAILY 07/14/25 07/14/25 mg-hydrochlorothiazide 25 mg tablet Previous Rx's ?Medication ?Instructions ?Recorded diclofenac sodium 50 mg 50 mg PO Q12H PRN pain #20 tabs 07/14/25 tablet,delayed release orphenadrine citrate 100 mg 100 mg PO BID PRN muscle spasm #20 07/14/25 tablet,extended release tabs oxycodone-acetaminophen 5 mg-325 1 tab PO BID PRN pain 3 days #6 07/14/25 mg tablet (Percocet) tabs Allergies Allergy/AdvReac Type Severity Reaction Status Date / Time heparin Allergy Severe Anaphylaxis Verified 07/14/25 14:48 Sulfa (Sulfonamide AdvReac Mild Hives Verified 07/14/25 14:48 Antibiotics) Opioid HPI Opioid Management Most Recent Opioid Data: Last Pain Scale 10 Today, 14:55 Review of Systems ROS Status of ROS 10 or more systems reviewed and unremarkable except as noted in history and below PFSH PFSH Social History Little interest or pleasure in doing things: not at all Feeling down, depressed, or hopeless: not at all Exam Narrative Exam Narrative: Nurses notes and vital signs reviewed and patient is not hypoxic. General: Well-appearing and in no apparent distress. Skin: Warm, dry, no pallor noted. No rash. Head: Normocephalic, atraumatic. Neck: Supple, non-tender. Cardiovascular: Regular Rate and Rhythm without murmur, gallop or rub. Respiratory: No accessory muscle use or respiratory distress. Lungs are clear to auscultation, no wheezing, rales or rhonchi Chest Wall: no tenderness Back: No midline thoracic or lumbar vertebral tenderness. No CVA tenderness the patient tenderness mostly at the paraspinal level at the lower lumbar and the sacral area on the right side Musculoskeletal: normal ROM, no calf or popliteal tenderness, no lower extremity edema/swelling GI: Abdomen is soft, non-distended. Normal bowel sounds. No masses appreciated. No tenderness to palpation. No rebound, guarding, or rigidity noted. Neurological: A&O x4. No cranial nerve dysfunction observed. No truncal ataxia. Moves all extremities. Sensation intact. Psychiatric: Cooperative and interactive. Normal mood and affect. Constitutional Vital Signs, click to edit/add: Last Vital Signs Temp 97.9 F 07/14/25 14:49 Pulse 115 H 07/14/25 14:49 Resp 07/14/25 14:49 BP 147/86 H 07/14/25 14:49 Pulse Ox 100 07/14/25 14:49 O2 Del Method Room Air 07/14/25 14:49 Course Vital Signs Vital signs: Vital Signs Temperature 97.9 F 07/14/25 14:49 Pulse Rate 115 H 07/14/25 14:49 Respiratory Rate 07/14/25 14:49 Blood Pressure 147/86 H 07/14/25 14:49 Pulse Oximetry 100 07/14/25 14:49 Oxygen Delivery Method Room Air 07/14/25 14:49 Temperature 97.9 F 07/14/25 14:49 Pulse Rate 115 H 07/14/25 14:49 Respiratory Rate 07/14/25 14:49 Blood Pressure 147/86 H 07/14/25 14:49 Pulse Oximetry 100 07/14/25 14:49 Oxygen Delivery Method Room Air 07/14/25 14:49 MDM - Back Pain/Injury MDM Narrative Medical decision making narrative: X-ray of the patient back showed that the patient have a significant anterior listhesis and that why a CAT scan of the lumbar spine showed that the patient had similar result The patient does not have any weakness numbness or tingling or any alarming symptoms of bowel incontinence or urinary retention Right now the patient was educated about the symptoms and the fact that she need to follow-up with neurosurgery as outpatient Initially the patient instructed about coming back to the ER in case of any worsening of symptoms and she was feeling much better after being treated with Toradol and Norflex after that the patient was trying to ambulate for discharge and apparently she was still having pain The patient then started on Percocet right now I presented to the bedside for evaluation and the patient mentioned that she is feeling better Patient will follow-up with neurosurgery as outpatient also will come back to the ER in case of any new symptoms Discharge Plan Discharge Chief Complaint: Back Pain/Injury Clinical Impression: Anterolisthesis, Lumbar disc disease Patient Disposition: Home, Self-Care Time of Disposition Decision: 17:08 Condition: Good Prescriptions / Home Meds: New orphenadrine citrate 100 mg tablet extended release 100 mg PO BID PRN (Reason: muscle spasm) Qty: 20 0RF diclofenac sodium 50 mg tablet,delayed release (DR/EC) 50 mg PO Q12H PRN (Reason: pain) Qty: 20 0RF Rx Instructions: Please take for the first 2 days every 12 hours and after that every 12 hours for pain only Please take medication with food oxycodone-acetaminophen [Percocet] 5-325 mg tablet 1 tab PO BID PRN (Reason: pain) 3 Days Qty: 6 0RF No Action atorvastatin 10 mg tablet 10 mg PO DAILY latanoprost 0.005 % drops 1 drp OPHTHALMIC (EYE) .QHS levothyroxine 75 mcg tablet 75 mcg PO DAILY metoprolol succinate 50 mg tablet extended release 24 hr 50 mg PO BID spironolacton-hydrochlorothiaz 25-25 mg tablet 0.5 tab PO DAILY Print Language: Lithuanian Instructions: Spondylolisthesis (ED) Referrals: YANIRA PHAM [Physician, Neurosurgery] - As soon as possible Referral Note: please call to make appointment RACHAEL CANELA [Primary Care Provider, Internal Medicine] - 1 week
[2025-07-14] MEDS: OXYCODONE HCL/ACETAMINOPHEN 5MG/325MG 1 TAB PO (17:31)
--- OUTSIDE RECORDS SUMMARY | 2025-07-14 18:37 | XMS_ITS | CCD ---
Author Organization [facility] Care Team Providers Care Gps Field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 Name Role Phone Nguyencely FELIX Amparo Unavailable Unavailab Rachael Dai Primary Care Provider DO Rachael Canela Primary Care Provider DO Rachael Canela Other Provider Self, Referral Attending Provider Unavailable DO Carlos King Referring Provider DR INDIA SOLIS Admitting Unavailable IRMA, DR OSBORNE Attending Unavailable ROLA, DR CANO Primary Care Unavailable DR INDIA SOLIS Consulting Unavailable CARRIEEBCATHIE, DR MEERA Yang Consulting Unavailable RACHAEL CANELA Primary Care Physician Patrick FELIX Amparo Unavailable Unavailab Rachael Dai Primary Care Provider DO Rachael Canela Primary Care Provider [phone] Self, Referral Attending Provider Unavailable DO Carlos King Referring Provider Rachael Canela Primary Care Provider RACHAEL CANELA Referring Unavailable LEILANIHAS, RACHAEL L Primary Care Unavailable JOSE MARTINS, RACHAEL L Admitting Unavailable JOSE MARTINSRACHAEL L Attending Unavailable JOSE MARTINSRACHAEL Referring Unavailable YUHAS, RACHAEL L Primary Care Unavailable JOSE MARTINSRACHAEL L Attending Unavailable LEILANIHAS, RACHAEL L Referring Unavailable YUHAS, RACHAEL L Primary Care Unavailable YUSRAVANTHIS RACHAEL L Attending Unavailable YUHAS, RACHAEL L Referring Unavailable YUHAS, RACHAEL L Primary Care Unavailable Unavailable Primary Care Provider Unavailabl e VANDANA RODRIGUEZ Attending Unavailable RACHAEL CANELA Referring Unavailable VANDANA RODRIGUEZ Attending Unavailable JOSE MARTINSRACHAEL Referring Unavailable VANDANA RODRIGUEZ Attending Unavailable YUHAS, RACHAEL Kaufman Referring Unavailable ROSALIO YU Attending Unavailable YUHAS, RACHAEL Kaufman Referring Unavailable VANDANA RODRIGUEZ Attending Unavailable YUHAS, RACHAEL L Referring Unavailable Yuhas DORachael Primary Care Provider [phone] YUHAS, RACHAEL L Referring Unavailable YUHAS, RACHAEL L Primary Care Unavailable YUHAS, RACHAEL L Referring Unavailable YUHAS, RACHAEL L Primary Care Unavailable Carlos King Referring Unavailable Self, Referral Admitting Unavailable Self, Referral Attending Unavailable Yuhas, Rachael Primary Care Unavailable NITZA MAE Referring Unavailable YUHAS, RACHAEL JUAREZ Primary Care Unavailable MAE, VISHALISA Attending Unavailable YUHAS, RACHAEL JUAREZ Primary Care Unavailable HAZARIKA, SUROVI Attending Unavailable HAZARIKA, SUROVI Referring Unavailable YUHAS, RACHAEL JUAREZ Primary Care Unavailable HAZARIKA, SUROVI Referring Unavailable YUHAS, RACHAEL YANESARD Primary Care Unavailable Yuhas DO, Rachael Kaufman Primary Care Provider [phone] India SOLIS Attending Unavailable India SOLIS Attending Unavailable India SOLIS Attending Unavailable Radha Bustillos Attending Unavailable YUHAS, RACHAEL Kaufman Attending Unavailable YUHAS, RACHAEL L Referring Unavailable YUHAS, RACHAEL L Primary Care Unavailable YUHAS, RACHAEL L Referring Unavailable YUHAS, RACHAEL L Primary Care Unavailable YUHAS, RACHAEL L Attending Unavailable YUHAS, RACHAEL L Referring Unavailable YUHAS, RACHAEL L Primary Care Unavailable YUHAS, RACHAEL L Attending Unavailable YUHAS, RACHAEL L Referring Unavailable YUHAS, RACHAEL L Primary Care Unavailable Allergies Allergy Classification Reported Allergen(s) Allergy Type Date of Onset Reaction(s) Facility (20 sources) heparin; Translations: [heparin] Drug Allergy 5 Other: See Comments, Platelet factor 4-heparin complex Ab, bleeding [facility] Work Phone: (20 sources) Sulfonamides (Antibiotic); Translations: [SULFA (SULFONAMIDE ANTIBIOTICS)] Drug Allergy 2 Rash [facility] Work Phone: (1 source) heparin Drug Allergy 5 [facility] Rep[facility] (1 source) Sulfonamides (Antibiotic) Drug allergy (disorder) 0 [facility] (6 sources) Sulfonamides (Antibiotic); Translations: [sulfa drugs] Drug allergy Eruption of skin (disorder) [facility] Medications Current Medications Medication Drug Class(es) Dates [...] sources) HMG-CoA Reductase Inhibitor Start: 12-09-2022 End: 05-25-2025 take 1 tablet by mouth once daily atorvastatin (LIPITOR) 10 mg tablet Indications: Hyperlipidemia, unspecified TAKE 1 TABLET BY MOUTH DAILY 90 tablet 1 05/25/2025 Active Comment on above: Take 10 mg [...] replacement) and aortoplasty , SVT (supraventricular tachycardia) ([facility]) Take 1 tablet by mouth [...] on above: Take 1 capsule by mo ut daily after breakfast. hydroCHLOROthiazide 25 mg / spironolactone 25 mg oral tablet (13 sources) Thiazide Diuretic, Aldosterone Antagonist Start: 2024 hydrochlorothiazide-spir onolactone 25 mg-25 mg Tab See Instructions, Refill(s) 0 Start Date: 11/11/24 Status: Ordered Repeat number: 1 Start: 12-27-2023 End: 12-23-2024 take 0.5 tablet by mouth once daily spironolactone-hctz 25/25 (ALDACTAZIDE) 25-25 mg per tablet Indications: Nonrheumatic tricuspid valve regurgitation TAKE 1/2 (ONE-HALF) OF A TABLET BY MOUTH DAILY 45 tablet 3 12/23/2024 Active End: 07-04-2025 take 0.5 tablet by mouth once spironolacton-hydroCHLOROthiaz (ALDACTAZIDE) 25-25 mg per tablet Take 0.5 tablets by mouth. 07/04/2025 Discontinued (Therapy completed) Comment on above: Take 0.5 tablets by mouth once daily. latanoprost 0.05 mg/ml ophthalmic solution (20 sources) Prostaglandin Analog Start: 12-09-2022 latanoprost (XALATAN) 0.005 % ophthalmic solution 12/09/2022 Active Start: 12-09-2022 latanoprost Op th 0.005% Jeanie Refill(s) 0 Start Date: 12/09/22 Status: Ordered Repeat number: 1 take 1 drop(s) into the eye(s) once daily LATANOPROST OPHTHALMIC Use 1 Drop in eyes once daily. Active take 1 drop(s) into the eye(s) once daily LATANOPROST OPHTHALMIC Use 1 Drop in eyes once daily. 0 Active levothyroxine sodium 0.075 mg oral tablet (20 sources) l-Thyroxine Start: 05-28-2025 take 1 tablet by mouth once daily levothyroxine (SYNTHROID, LEVOTHROID) 75 MCG tablet Indications: Hypothyroidism, unspecified TAKE 1 TABLET BY MOUTH ONCE DAILY 90 tablet 1 05/28/2025 Active Start: 06-01-2020 levothyroxine Daily, Refills(s) 0 Start Date: 06/01/20 Status: Ordered Repeat number: 1 Start: 06-01-2020 levothyroxine Daily, Refills(s) 0 Start Date: 06/01/20 Status: Ordered Start: 03-23-2018 End: 05-28-2025 take 1 tablet by mouth once daily levothyroxine (SYNTHROID, LEVOTHROID) 75 MCG tablet Indications: Hypothyroidism, unspecified TAKE 1 TABLET BY MOUTH DAILY 90 tablet 1 10/30/2024 05/28/2025 Discontinued Comment on above: Take 1 tablet by [place] th daily before breakfast. Lisinopril (1 source) Angiotensin Converting Enzyme Inhibitor Start: 06-01-2020 lisinopril Oral, Daily, Refills(s) 0 Start Date: 06/01/20 Status: Ordered Magnesium (11 sources) Start: 11-11-2024 take 1 mg by mouth twice daily magnesium (as citrate) 83 mg oral tablet, chewable mg tab(s), Oral, BID, Refills(s) 0 Start Date: 11/11/24 Status: Ordered Repeat number: 1 Start: 11-11-2024 take 1 mg by mouth twice daily magnesium (as citrate) 83 mg oral tablet, chewable mg tab(s), Oral, BID, Refills(s) 0 Start Date: 11/11/24 Status: Ordered take 1 tablet by bro[place] th once daily Magnesium 250 mg tab Take 250 mg by mouth once daily. Active take 1 tablet by bro[place] th once daily Magnesium 250 mg tab Take 250 mg by mouth once daily. 0 Active Comment on above: Take 250 mg by mouth once daily. magnesium oxide 250 mg oral tablet (6 sources) take 1 tablet by mouth in [...] Date: 11/11/24 Status: Ordered Repeat number: 1 Start: 08-28-2023 take 1 tablet by [place] [...] (atrial premature contractions) , SVT (supraventricular tachycardia) (HCC) take 1 tablet by [...] prefilled syringe (12 sources) Start: 06-27-2023 End: 11-27-2024 sodium chloride 0.9 % (flush) 10 mL (BD POSIFLUSH) Start: 12-27-2021 End: 03-28-2023 sodium chloride 0.9 % (flush ) 10 mL (BD POSIFLUSH) spironolactone 25 mg oral tablet (7 sources) Aldosterone Antagonist Start: 07-04-2025 take 0.5 tablet by mouth in the morning spironolactone (ALDACTONE) 25 mg tablet Take 0.5 tablets (12.5 mg total) by mouth in the morning. 07/04/2025 Active End: 07-04-2025 take 1 tablet by mouth in the morning spironolactone (ALDACTONE) 25 mg tablet Take 1 tablet (25 mg total) by mouth in the morning. 07/04/2025 Discontinued Vitamin D2 2000 intl units oral capsule (3 sources) Start: 06-01-2020 take 1 capsule by mouth once daily Vitamin D2 2000 intl units oral capsule International_Unit cap(s), Oral, Daily, Refills(s) 0 Start Date: 06/01/20 Status: Ordered Vitamin D3 (2 sources) Start: 11-11-2024 Vitamin D3 Ref ills(s) 0 Start Date: 11/11/24 Status: Ordered Repeat number: 1 Start: 11-11-2024 Vitamin D3 Ref ills(s) 0 Start Date: 11/11/24 Status: Ordered Completed/Discontinued [...] on above: Take 4 tablets by mo [facility] 30-60 minutes before dental procedure dapagliflozin 5 mg oral tablet (3 sources) Sodium-Glucose Cotransporter 2 Inhibitor Start: End: take 1 tablet by mouth once daily at breakfast dapagliflozin propanediol (FARXIGA) 5 mg tablet Take 1 tablet by mouth daily with breakfast. 90 tablet 3 12/27/2023 12/28/2023 Discontinued (Not on Formulary) Comment on above: Take 1 tablet by brooklyn th daily with breakfast. 10 ml lidocaine hydrochloride [...] eyes every evening. 03/25/2025 Discontinued timolol/dorzolam jama/latanop/PF (GDGOTDO-[id number],PF,) 0.5-2-0.005 % drop Use 1 Drop in eyes every evening. Active timolol/dorzolam jama/latanop/PF (HMPCVYU-[id number]-SODBKMJ,PF,) 0.5-2-0.005 % drop Use 1 Drop in [...] 5 10-25-2021 Chronic Congestive heart failure; nonhypertensive (20 sources) Acute on chronic diastolic heart failure; [...] 1 Resolved: 5 Chronic Heart valve disorders (5 sources) Heart murmur 06-01-2020 Episodic Osteoarthritis (5 sources) Arthritis 06-01-2020 Chronic Other and unspecified benign neoplasm (1 source) Polyp of colon; Translations: [Polyp of colon] Onset: 4 Episodic Other and unspecified benign neoplasm (2 sources) Benign lipomatous tumor; Translations: [Benign lipomatous neoplasm, unspecified] Onset: 5 Episodic Other connective tissue disease (1 source) Impingement syndrome of left shoulder region; Translations: [Impingement syndrome of left shoulder] 05-30-2023 Episodic Other diseases of kidney and ureters (5 sources) Hydronephrosis due to ureteral obstruction 06-01-2020 Episodic Other ear and sense organ disorders (1 source) Bilateral hearing loss; Translations: [Sensorineural hearing loss, unilateral, right ear, with restricted hearing on the contralateral side] 12-05-2024 Chronic Other ear and sense organ disorders (1 source) Sensorineural hearing loss, unilateral, right ear, with restricted hearing on the contralateral side; Translations: [Sensorineural hearing loss, unilateral, right ear, with restricted hearing on the contralateral side] Onset: 5 Chronic Other gastrointestinal disorders (1 source) Other [...] region] Onset: 2 Resolved: 3 02-05-2021 Chronic Thyroid disorders (20 sources) Hypothyroidism; Translations: [Hypothyroidism, unspecified] Onset: 5 10-25-2021 Chronic Unclassified (18 sources) SUMMARY Onset: 5 01-06-2015 Unclassified (1 source) screening Onset: 4 Unclassified (2 sources) Angiomyolipoma 11-11-2024 Unclassified (1 source) maw Onset: 5 Unclassified (1 source) Rash Onset: 4 Past or Other Problems Problem [...] of calculus of kidney] Onset: 12-05-2022 Episodic Coagulation and hemorrhagic disorders (5 sources) Spontaneous ecchymoses; Translations: [Spontaneous ecchymosis] Onset: 08-08-2024 08-08-2024 Episodic Conditions associated with dizziness or vertigo (20 sources) Vertigo of central origin; Translations: [Vertigo of central origin] Onset: 03-20-2015 03-20-2015 Episodic Deficiency and other anemia (20 sources) Anemia; Translations: [Anemia, unspecified] Onset: 12-27-2014 10-25-2021 Episodic Diabetes mellitus without complication (6 sources) Metabolic stress hyperglycemia; Translations: [Hyperglycemia, unspecified] Onset: 12-03-2014 Resolved: 12-05-2014 Episodic Genitourinary symptoms and ill-defined conditions (20 sources) Christian hematuria; Translations: [Gross hematuria] Onset: 01-30-2023 06-01-2020 Episodic Mood disorders (18 sources) Mood disorders Onset: 08-08-2024 Resolved: 07-04-2025 08-08-2024 Nausea and vomiting (6 sources) Nausea; [...] sources) Long-term current use of anticoagulant; Translations: [prison (current) use of anticoagulants] Onset: 01-03-2015 01-30-2023 Episodic Other and unspecified benign neoplasm (12 sources) Polyp of sigmoid colon; Translations: [Polyp of colon] Onset: 05-29-2024 05-29-2024 Episodic Other diseases of kidney and ureters (18 sources) Hydronephrosis with renal and ureteral calculous [...] disc disorders; other back problems (7 sources) Disorder of left sciatic nerve; Translations: [Sciatica, left side] Onset: 08-08-2024 08-15-2024 Episodic Results Test Name Value Interpretation Reference Range Facility COMPREHENSIVE METABOLIC PANE [facility] 07-04-2025 Albumin [Mass/Vol] 4.4 g/dL Normal 3.2-5.3 [facility] Comment on above: Performed By: #### C MP #### [facility] ([facility]) [address] [place] [address] VIR ALP [Catalytic activity/Vol] 81 U/L Normal 39-130 [facility] Comment on above: Performed By: #### C MP #### [facility] ([facility]) [address] [place] [address] VIR ALT [Catalytic activity/Vol] 21 U/L Normal <=31 [facility] Comment on above: Performed By: #### C MP #### [facility] ([facility]) [address] [place] [address] VIR Anion gap [Moles/Vol] 8 mmol/L Normal 5-15 [facility] Comment on above: Performed By: #### C MP #### [facility] ([facility]) [address] [place] [address] VIR AST [Catalytic activity/Vol] 24 U/L Normal <=41 [facility] Comment on above: Performed By: #### C MP #### [facility] ([facility]) [address] [place] [address] VIR Bilirubin [Mass/Vol] 0.9 mg/dL Normal 0.3-1.2 [facility] Comment on above: Performed By: #### C MP #### [facility] ([facility]) [address] [place] [address] VIR Calcium [Mass/Vol] 9.9 mg/dL Normal 8.5-10.5 [facility] Comment on above: Performed By: #### C MP #### [facility] ([facility]) [address] [place] [address] VIR Chloride [Moles/Vol] 102 mmol/L Normal 98-109 [facility] Comment on above: Performed By: #### C MP #### [facility] ([facility]) [address] [place] [address] VIR CO2 [Moles/Vol] 32 mmol/L Normal 22-32 [facility] Comment on above: Performed By: #### C MP #### [facility] ([facility]) [address] [place] [address] VIR Creatinine [Mass/Vol] 1.01 mg/dL High 0.40-1.00 [facility] Comment on above: Result Comment: METH OD TRACEABLE TO IDMS STANDARD Performed By: #### C MP #### [facility] ([facility]) [address] [place] [address] VIR GFR/1.73 sq M.predicted among non-blacks MDRD (S/P/Bld) [Vol rate/Area] 58 mL/min/{1.73_m2} Low >=60 [facility] Comment on above: Result Comment: Repo rted eGFR is based on the CKD-EPI 2020 equation that does not use a race coefficient. Performed By: #### C MP #### [facility] ([facility]) [address] [place] [address] VIR Glucose [Mass/Vol] 79 mg/dL Normal 65-99 [facility] Comment on above: Performed By: #### C MP #### [facility] ([facility]) [address] [place] [address] VIR Potassium [Moles/Vol] 4.5 mmol/L Normal 3.5-5.0 [facility] Comment on above: Performed By: #### C MP #### [facility] ([facility]) [address] [place] [address] VIR Protein [Mass/Vol] 6.9 g/dL Normal 6.0-8.0 [facility] Comment on above: Performed By: #### C MP #### [facility] ([facility]) [address] [place] [address] VIR Sodium [Moles/Vol] 142 mmol/L Normal 134-146 [facility] Comment on above: Performed By: #### C MP #### [facility] ([facility]) [address] [place] [address] VIR Urea nitrogen [Mass/Vol] 25 mg/dL Normal 5-27 [facility] Comment on above: Performed By: #### C MP #### [facility] ([facility]) [address] [place] [address] VIR Comprehensive metabolic pane young 07-04-2025 Albumin [Mass/Vol] 4.4 g/dL 3.2 - 5.3 g/dL [facility] ALP [Catalytic activity/Vol] 81 U/L 39 - 130 U/L [facility] ALT No additional P-5'-P [Catalytic activity/Vol] 21 U/L NINF - 31 U/L [facility] Anion gap [Moles/Vol] 8 mmol/L 5 - 15 mmol/L [facility] AST [Catalytic activity/Vol] 24 U/L NINF - 41 U/L [facility] Bilirubin [Mass/Vol] 0.9 mg/dL 0.3 - 1 .2 mg/dL [facility] Calcium [Mass/Vol] 9.9 mg/dL 8.5 - 10. 5 mg/dL [facility] Chloride [Moles/Vol] 102 mmol/L 98 - 10 9 mmol/L [facility] CO2 [Moles/Vol] 32 mmol/L 22 - 32 mmol/L [facility] Creatinine [Mass/Vol] 1.01 mg/dL High 0.40 - 1.00 mg/dL [facility] Comment on above: METHOD TRACEABLE TO IDNY STANDARD EGFR Non-Race Dependent 58 Low - PINF [facility] Comment on above: Reported eGFR is bas ed on the CKD-EPI 2020 equation that does not use a race coefficient. Glucose [Mass/Vol] 79 mg/dL 65 - 99 mg/dL [facility] Interpretation and review of laboratory results Abnormal [facility] Potassium [Moles/Vol] 4.5 mmol/L 3.5 - 5.0 mmol/L [facility] Protein [Mass/Vol] 6.9 g/dL 6.0 - 8.0 g/dL [facility] Sodium [Moles/Vol] 142 mmol/L 134 - 146 mmol/L [facility] Urea nitrogen [Mass/Vol] 25 mg/dL 5 - 27 mg/dL [facility] LIPID PROFILEon 07-04-2025 Cholesterol [Mass/Vol] 154 mg/dL Normal 150-200 [facility] Comment on above: Performed By: #### L IPR #### [facility] ([facility]) [address] [place] [address] VIR Cholesterol in HDL [Mass/Vol] 77 mg/dL Normal >39 [facility] Comment on above: Result Comment: HDL <40 mg/dL - High Risk HDL > or = 40mg/dL- Desirable HDL >60 mg/dL - Negative Risk Performed By: #### L IPR #### [facility] ([facility]) [address] [place] [address] VIR Cholesterol in LDL [Mass/Vol] 59 mg/dL Normal <130 [facility] Comment on above: Result Comment: LDL <100 mg/dL - Desirable LDL >160 mg/dL - High Risk Performed By: #### L IPR #### [facility] ([facility]) [address] [place] [address] VIR CHOLESTEROL:HDL 2.0 Normal 1.0-5.0 [facility] Comment on above: Performed By: #### L IPR #### [facility] ([facility]) [address] [place] [address] VIR Triglyceride [Mass/Vol] 88 mg/dL Normal 27-150 [facility] Comment on above: Performed By: #### L IPR #### [facility] ([facility]) [address] [place] [address] VIR VERY LOW LIPOPROTEIN 18 mg/dL Normal 0-30 [facility] Comment on above: Performed By: #### L IPR #### [facility] ([facility]) [address] [place] [address] VIR Lipid profileon 07-04-2025 Cholesterol [Mass/Vol] 154 mg/dL 150 - 200 mg/dL [facility] Cholesterol in HDL [Mass/Vol] 77 mg/dL 39 - PINF mg/dL [facility] Comment on above: HDL <40 mg/dL - High Risk HDL > or = 40mg/dL- Desirable HDL >60 mg/dL - Negative Risk Cholesterol in HDL [Mass/Vol] 2 mg/dL 1.0 - 5.0 [facility] Cholesterol in LDL [Mass/Vol] 59 mg/dL NINF - 130 mg/dL [facility] Comment on above: LDL <100 mg/dL - Bryant irable LDL >160 mg/dL - High Risk Cholesterol in VLDL [Mass/Vol] 18 mg/dL 0 - 30 mg/dL [facility] Interpretation and review of laboratory results Normal [facility] Triglyceride [Mass/Vol] 88 mg/dL 27 - 150 mg/dL [facility] No Panel Informationon 07-04 [facility] THYROID PROFILE INCLUDES TSH FT4on 07-04-2025 Free T4 [Mass/Vol] 1.33 ng/dL Normal 0.61-1.60 [facility] Comment on above: Performed By: #### T HYR #### [facility] ([facility]) [address] [place] [address] VIR TSH 0.77 uIU/mL Normal 0.49-4.67 [facility] Comment on above: Performed By: #### T HYR #### [facility] ([facility]) [address] [place] [address] VIR Thyroid profile includes TSH FT4on 07-04-2025 Free T4 [Mass/Vol] 1.33 ng/dL 0.61 - 1. 60 ng/dL [facility] Interpretation and review of laboratory results Normal [facility] TSH Qn 0.77 m[IU]/L [facility] Ambulatory Visit Summaryon 0 06-02-2025 Ambulatory Visit Summary Ambulatory Visit Summary LESVIA RAMOS I :1950 Visit Date:06/02/2025 Ambulatory Visit Instructions Your Diagnosis Kidney stones Stress incontinence Angiomyolipoma Tests Performed XR Abdomen 1 View -- Results Pending -- Please visit your patient portal for your results or contact your primary care physician. Your Care Team Attending Physician - IRMA RECINOS, [place] Yang Primary Care Physician - RACHAEL CANELA DO [...] (10/30/2014), Colonoscopy. Discharge Vitals Heart Rate (Peripheral) 70 Respiratory Rate 18 Blood Pressure 128/70 Height 162 cm Height 64 in Weight 59.1 kg Weight 130.293 lb BMI 22.52 What to do next You Need to Schedule the Following Appointments Follow Up with IRMA RECINOS, [place] When: Where: [facility] [address], [place] [id number]- [phone] Medications What How Much When Instructions Unchanged [...] choosing us for your care. [employer] Laser Therapy for Kidney Stones Laser therapy [...] are painful or that are stopping you from being able to pee. Tell a health care provider about: ??? Any allergies you have. ??? All medicines you are taking, including vitamins, herbs, eye drops, creams, and [id number] medicines. ??? Any problems you or family [...] Allergic reactions to medicines. ??? Damage to: ? The part of your body that drains pee (urine) from the bladder (urethra). ? The bladder. ? The tube that connects the bladder to [...] include: ??? 8 hours before the procedure ? Stop eating most foods. Do not eat meat, fried foods, or fatty foods. ? Eat only light foods, such as toast or crackers. ? All liquids a (more content not included)... Normal [facility] Urology Office/Clinic Noteon 06-02-2025 Urology Office/Clinic Note Urology Office/Clinic Note Chief Complaint pt here for follow up stress incontinence and renal stone HPI Staff Pt is a 74 year old female here for a 6 month follow up with KUB and SANIYA Previous Dx: history of renal stone, stress incontinence Pt denies pain/burning denies visible blood denies flank pain History of Present Illness Tests reviewed: reviewed UA, SANIYA, KUB I have reviewed the previous health record information and history for this patient from Dr. Solis. I have reviewed and verified the staff [...] See HPI. Physical Exam Vitals & Measurements HR: 70(Peripheral) RR: 18 BP: 128/70 HT: 162 cm HT: 64 in WT: 130.293 lb WT: 59.1 kg BMI: 22.52 General Appearance: alert , no acute distress, [...] size. Tiny stones on R in parenchyma. [1] KUB 05/14/25 [facility] - No stones noted. SANIYA 05/14/25 [facility] - Bilateral echogenic foci with twinkling artifact suggesting stones. Largest on R at RIP measuring 5 mm. Largest on L at LSP measuring 5 mm. Slight fullness to L renal collecting system. No R hydro. Denies any flank pain. No recent stone episodes. UA neg. Reviewed imaging results. Advised pt x-ray did not visualize stones but may be related to bowel content obstructing view. Size of stones are passable. Pt is concerned about having pain if stone were to pass. Discussed operative intervention including ESWL vs ureteroscopy. Risks/benefits discussed. Would need to verify is stones are visible on x-ray to proceed with ESWL. Discussed options of repeat KUB with bowel prep prior to determine if we can proceed with ESWL vs continued monitoring. Pt elects to complete KUB with bowel prep prior. -Obtain KUB after mini bowel prep. Will call pt with results. -Increase fluid intake 2. Stress incontinence (N39.3: Stress incontinence (female) (male)) mild leaking with coughing/sneezing. Does wear a pad for protection, but rarely needs to change it. [2] -Cont pelvic floor exercises/Kegels -Cont sxs monitoring, pt to call if sxs arise 3. Angiomyolipoma (D17.9: Benign lipomatous neoplasm, unspecified) CT AP wo con 08/20/24 [facility] - 5mm fatty lesion in R kidney, likely a small angiomyolipoma. [3] SANIYA 05/14/25 [facility] - Suspected small 1 cm angiomyolipoma at supine pole of R kidney. Follow-up With When Contact Information IRMA RECINOS, India Yang, [facility] [address], [place] [address]- [phone] Additional Instructions: f/u pending KUB results Patient Education Laser Therapy for Kidney Stones ESWL for Kidney Stones INasrin, personally scribed for Dr. Solis on 06/02/2025 14:32:50. . Documentation recorded by the scribe, Nasrin Andersen, accurately reflects the services(s) I performed and decisions made by me. Authenticated by Dr. Solis on 06/02/2025 14:34:44. Problem List/Past Medical History Ongoing Abdominal pain Angiomyolipoma Gross hematuria History of renal stone Hydronephrosis with ureteral calculus Kidney stones Right flank pain Stress incontinence Historical AF - Atrial fibrillation Arthritis Heart murmur Hypertension Procedure/Surgical History CE - Cataract extraction (2021), AVR - Aortic valve replacement (10/30/2014), Colonoscopy. 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 Normal [facility] Comment on above: Result Comment: Elec tronically Signed By: India SOLIS MD\.br\Date and Time Signed: 06/02/25 14:34 EDT\.br\Electronically Co-Signed By: Nasrin Andersen\.br\Date and Time Co-Signed: 06/02/25 14:33 EDT Reminderson 05-29-2025 Reminders Reminders From: Nery Potts To: EU - Recalls Irma; Sent: 11/11/2024 13:18:03 EST Show up: 02/27/2025 13:17:00 EDT Subject: renal US and KUB Due Date/Time: 04/14/2025 13:18:00 EDT Reminder/Recall Patient needs Renal US and KUB at [facility] prior to April 2025 appt She uses [facility] Order faxed to [facility] today. Will monitor for results. Pt is scheduled on 05/14/25 Will monitor for the results results in chart for review Normal [facility] Basic metabolic 2000 panelon 03-25-2025 Anion gap [Moles/Vol] 11 mmol/L Normal 8-15 [facility] Comment on above: Order Comment: Brianda andres Type: BLOOD SPECIMEN Ordering Facility: [facility] Address: [address] [place] [address] Performed By: #### 2 4321-2, 22555-9 #### [facility] CLIA [id number] [address] [place] [address] [place] [address] [place] Calcium [Mass/Vol] 10.1 mg/dL Normal 8.5-10.2 [facility] Comment on above: Order Comment: Speci men Type: BLOOD SPECIMEN Ordering Facility: [facility] Address: [address] [place], [place] [id number] Performed By: #### 2 4321-2, #### [facility] CLIA [id number] [address] [place] [address] [place] Chloride [Moles/Vol] 102 mmol/L Normal 98-107 [facility] Comment on above: Order Comment: Speci men Type: BLOOD SPECIMEN Ordering Facility: [facility] Address: [address] [place] [address] Performed By: #### 2 4321-2, #### [facility] CLIA [id number] [address] [place] [address] [place] CO2 [Moles/Vol] 28 mmol/L Normal 22-30 [facility] Comment on above: Order Comment: Speci men Type: BLOOD SPECIMEN Ordering Facility: [facility] Address: [address] [place] [address] Performed By: #### 2 432-2, #### [facility] CLIA [id number] [address] [place] [address] [place] Creatinine [Mass/Vol] 0.83 mg/dL Normal 0.58-0.96 [facility] Comment on above: Order Comment: Speci men Type: BLOOD SPECIMEN Ordering Facility: [facility] Address: [address] [place] [address] Performed By: #### 2 432-2, #### [facility] CLIA [id number] [address] [place] [address] [place] Creatinine and Glomerular filtration rate.predicted panel (S/P/Bld) 74 mL/min/1.73m??? Normal >=60 [facility] Comment on above: Order Comment: Speci men Type: BLOOD SPECIMEN Ordering Facility: [facility] Address: [address] [place] [address] Result Comment: Felicia mated Glomerular Filtration Rate [...] reflect actual GFR. Performed By: #### 2 432-, #### [facility] CLIA [id number] [address] [place] [address] [place] Glucose [Mass/Vol] 82 mg/dL Normal 74-99 [facility] Comment on above: Order Comment: Brianda andres Type: BLOOD SPECIMEN Ordering Facility: [facility] Address: [address] [place] [address] Result Comment: The [place] [employer] Association (ADA) provides guidance for cutoff [...] Standards of Medical Care in Diabetes 2016, [place] [employer]. Diabetes Care. 2016.39(Suppl 1). Performed By: #### 2 4320-11, #### [facility] CLIA [id number] [address] [place] [address] [place] Potassium [Moles/Vol] 4.9 mmol/L Normal 3.7-5.1 [facility] Comment on above: Order Comment: Brianda andres Type: BLOOD SPECIMEN Ordering Facility: [facility] Address: [address] [place] [address] Performed By: #### 2 43210-31, #### [facility] CLIA [id number] [address] [place] [address] [place] Sodium [Moles/Vol] 141 mmol/L Normal 136-144 [facility] Comment on above: Order Comment: Speci men Type: BLOOD SPECIMEN Ordering Facility: [facility] Address: [address] [place] [address] Performed By: #### 2 4321-2, 15869-1 #### [facility] CLIA [id number] [address] [place] [address] [place] Urea nitrogen [Mass/Vol] 19 mg/dL Normal 7-21 [facility] Comment on above: Order Comment: Speci men Type: BLOOD SPECIMEN Ordering Facility: [facility] Address: [address] [place] [address] Performed By: #### 2 4321-2, 27977-1 #### [facility] CLIA [id number] [address] [place] [address] [place] CBC panel Auto (Bld)on 03-25 Erythrocyte distribution width (RBC) [Ratio] 11.9 % 11.5 - 15.0 % [facility] Hematocrit (Bld) [Volume fraction] 47.8 % High 36.0 - 46.0 % [facility] Hemoglobin (Bld) [Mass/Vol] 15.7 g/dL High 11.5 - 15.5 g/dL [facility] Interpretation and review of laboratory results Abnormal [facility] MCH (RBC) [Entitic mass] 32.4 pg 26.0 - 34.0 pg [facility] MCHC (RBC) [Mass/Vol] 32.8 g/dL 30.5 - 36.0 g/dL [facility] MCV (RBC) [Entitic vol] 98.8 fL 80.0 - 100.0 fL [facility] Nucleated RBC (Bld) [#/Vol] NINF [facility] Platelet mean volume (Bld) [Entitic vol] 11.4 fL 9.0 - 12.7 fL [facility] Platelets (Bld) [#/Vol] 176 10*3/uL [facility] RBC (Bld) [#/Vol] 4.84 10*6/uL 3.90 - 5.2 0 m/uL [facility] WBC (Bld) [#/Vol] 7.27 10*3/uL [facility] Erythrocyte distribution width (RBC) [Ratio] 11.9 % Normal 11.5-15.0 [facility] Comment on above: Order Comment: Speci men Type: BLOOD SPECIMEN Ordering Facility: [facility] Address: [address] [place] [address] Performed By: #### 5 8410-2 #### [facility] CLIA [id number] [address] [place] [address] [place] Hematocrit (Bld) [Volume fraction] 47.8 % High 36.0-46.0 [facility] Comment on above: Order Comment: Speci men Type: BLOOD SPECIMEN Ordering Facility: [facility] Address: [address] [place] [address] Performed By: #### 5 8410-2 #### [facility] CLIA [id number] [address] [place] [address] [place] Hemoglobin (Bld) [Mass/Vol] 15.7 g/dL High 11.5-15.5 [facility] Comment on above: Order Comment: Speci men Type: BLOOD SPECIMEN Ordering Facility: [facility] Address: [address] [place] [address] Performed By: #### 5 8410-2 #### [facility] CLIA [id number] [address] [place] [address] [place] MCH (RBC) [Entitic mass] 32.4 pg Normal 26.0-34.0 [facility] Comment on above: Order Comment: Speci men Type: BLOOD SPECIMEN Ordering Facility: [facility] Address: [address] [place] [address] Performed By: #### 5 8410-2 #### [facility] CLIA [id number] [address] [place] [address] [place] MCHC (RBC) [Mass/Vol] 32.8 g/dL Normal 30.5-36.0 [facility] Comment on above: Order Comment: Speci men Type: BLOOD SPECIMEN Ordering Facility: [facility] Address: [address] [place] [address] Performed By: #### 5 8410-2 #### [facility] CLIA [id number] [address] [place] [address] [place] MCV (RBC) [Entitic vol] 98.8 fL Normal 80.0-100.0 [facility] Comment on above: Order Comment: Speci men Type: BLOOD SPECIMEN Ordering Facility: [facility] Address: [address] [place] [address] Performed By: #### 5 8410-2 #### [facility] CLIA [id number] [address] [place] [address] [place] Nucleated RBC (Bld) [#/Vol] 10*3/uL Normal <0.01 [facility] Comment on above: Order Comment: Speci men Type: BLOOD SPECIMEN Ordering Facility: [facility] Address: [address] [place] [address] Performed By: #### 5 8410-2 #### [facility] CLIA [id number] [address] [place] [address] [place] Platelet mean volume (Bld) [Entitic vol] 11.4 fL Normal 9.0-12.7 [facility] Comment on above: Order Comment: Speci men Type: BLOOD SPECIMEN Ordering Facility: [facility] Address: [address] [place] [address] Performed By: #### 5 8410-2 #### [facility] CLIA [id number] [address] [place] [address] [place] Platelets (Bld) [#/Vol] 176 10*3/uL Normal 150-400 [facility] Comment on above: Order Comment: Speci men Type: BLOOD SPECIMEN Ordering Facility: [facility] Address: [address] [place] [address] Performed By: #### 5 8410-2 #### [facility] CLIA [id number] [address] [place] [address] [place] RBC (Bld) [#/Vol] 4.84 10*6/uL Normal 3.90-5.20 [facility] Comment on above: Order Comment: Speci men Type: BLOOD SPECIMEN Ordering Facility: [facility] Address: [address] [place] [address] Performed By: #### 5 8410-2 #### [facility] CLIA [id number] [address] [place] [address] [place] WBC (Bld) [#/Vol] 7.27 10*3/uL Normal 3.70-11.00 [facility] Comment on above: Order Comment: Speci men Type: BLOOD SPECIMEN Ordering Facility: [facility] Address: [address] [place] [address] Performed By: #### 5 8410-2 #### [facility] CLIA [id number] [address] [place] [address] [place] CNOVon 03-25-2025 CNOV Office Visit (DICK ) LESVIA RAMOS I ([id number]) 1950 F Date Time Provider Department 03/25/25 1:30 PM NITZA MAE During your visit today, we recorded the following information about you: Pulse Blood pressure Weight 76/minute 131/70 58.8 kg Nitza Mae APRN.PAINT PREPPER 03/25/2025 3:12 PM [facility] [place] Jessie Wade Department of Cardiovascular Medicine SECTION [facility] March 25, 2025 OUTPATIENT VISIT TYPE [...] episode of mild dyspnea while using a ifk-[id number]-birpqdpae push mower, which required slightly more exertion [...] least 5 (more content not included)... Normal [facility] ECG COMPLETEon 03-25-2025 ECG COMPLETE Ventricular Rate : 6 5 BPM Atrial Rate : 65 BPM P-R Interval : 194 ms QRS Duration : 92 ms Q-T Interval : 424 ms QTC Calculation(Bazett) : 440 ms Calculated P Susan : 69 degrees Calculated R Susan : 64 degrees Calculated T Susan : 59 degrees SINUS RHYTHM WITH MARKED SINUS ARRHYTHMIA Septal Infarct , AGE UNDETERMINED ABNORMAL ECG Confirmed by MERON MARTINI M.D. ([id number]) on 03/26/2025 9:51:43 AM NAME : LESVIA RAMOS PID : [id number] : 1950 Gender : Female Race : ORD : [id number] Procedure Date : Mar 25 2025 13:54:48 [...] Referred By : , Acquired by : whitney, Roopa [facility] Magnesium SerPl-mCncon 03-25 Magnesium [Mass/Vol] 2.1 mg/dL Normal 1.7-2.3 [facility] Comment on above: Order Comment: Speci men Type: BLOOD SPECIMEN Ordering Facility: [facility] Address: [address] [place] [address] Performed By: #### 2 4321-2, 46523-8 #### [facility] CLIA [id number] [address] [place] [address] [place] MM screening mammo BI w/CADo n 03-17-2025 MM screening mammo BI w/CAD [facility] [address] [place], [place] [id number] Mammography Report Signed Patient: Lesvia Ramos I MR#: [id number] : 1950 Acct:[id number] Age/Sex: 74 / F Adm Date: 03/17/25 Loc: [place] Room: Type: [facility] Attending Dr: Referral Self Ordering Provider: SELF,REFERRAL Date of Service: 03/17/25 Procedure(s): MM screening mammo BI w/CAD Accession Number(s): ([id number]) MM/MM screening mammo BI w/CAD: SCREENING Copies to: Rachael Canela,DO SELF,REFERRAL Carlos King,DO CLINICAL DATA: Screening for malignancy. SCREENING MAMMOGRAM [...] Holcomb M.D. 03/17/2025 9:47 AM Dictation Location: [facility] Dictated By: Jose Holcomb MD 03/17/25 0945 Signed By: 03/17/25 0947 Normal [facility] COMPREHENSIVE METABOLIC PANE Young 12-05-2024 Albumin [Mass/Vol] 4.4 g/dL Normal 3.2-5.3 [facility] Comment on above: Performed By: #### C RY, 60980-4 #### [facility] ([id number]) [address], [address] [place] [address] ALP [Catalytic activity/Vol] 87 U/L Normal 39-130 [facility] Comment on above: Performed By: #### C RY, 54718-0 #### [facility] ([id number]) [address], [address] [place] [address] ALT [Catalytic activity/Vol] 20 U/L Normal 0-31 [facility] Comment on above: Performed By: #### Jg RAZA, 86288-3 #### [facility] ([id number]) [address], [address] [place] [address] Anion gap [Moles/Vol] 7 mmol/L Normal 5-15 [facility] Comment on above: Performed By: #### Jg RAZA, 80113-7 #### [facility] ([id number]) [address], [address] [place] [address] AST [Catalytic activity/Vol] 21 U/L Normal 0-41 [facility] Comment on above: Performed By: #### Jg RAZA, 59472-0 #### [facility] ([id number]) [address], [address] [place] [address] Bilirubin [Mass/Vol] 1.1 mg/dL Normal 0.3-1.2 [facility] Comment on above: Performed By: #### Jg RAZA, 64565-4 #### [facility] ([id number]) [address], [address] [place] [address] Calcium [Mass/Vol] 9.7 mg/dL Normal 8.5-10.5 [facility] Comment on above: Performed By: #### Jg RAZA, 33765-2 #### [facility] ([id number]) [address], [address] [place] [address] Chloride [Moles/Vol] 101 mmol/L Normal 98-109 [facility] Comment on above: Performed By: #### Jg RAZA, 25864-4 #### [facility] ([id number]) [address], [address] [place] [address] CO2 [Moles/Vol] 33 mmol/L High 22-32 [facility] Comment on above: Performed By: #### Jg RAZA, 75944-8 #### [facility] ([id number]) [address], [address] [place] [address] Creatinine [Mass/Vol] 0.89 mg/dL Normal 0.40-1.00 [facility] Comment on above: Result Comment: METH OD TRACEABLE TO IDMS STANDARD Performed By: #### Jg RAZA 14503-5 #### [facility] ([id number]) [address], [address] [place] [address] GFR/1.73 sq M.predicted among non-blacks MDRD (S/P/Bld) [Vol rate/Area] 68 mL/min/{1.73_m2} Normal >59 [facility] Comment on above: Result Comment: Reported eGFR is based on the CKD-EPI 2020 equation that does not use a race coefficient. Performed By: #### Jg RAZA 03749-2 #### [facility] ([id number]) [address], [address] [place] [address] Glucose [Mass/Vol] 99 mg/dL Normal 65-99 [facility] Comment on above: Performed By: #### Jg RAZA 36019-5 #### [facility] ([id number]) [address], [address] [place] [address] Potassium [Moles/Vol] 4.0 mmol/L Normal 3.5-5.0 [facility] Comment on above: Performed By: #### Jg RAZA 67509-7 #### [facility] ([id number]) [address], [address] [place] [address] Protein [Mass/Vol] 7.1 g/dL Normal 6.0-8.0 [facility] Comment on above: Performed By: #### Jg RAZA 70494-7 #### [facility] ([id number]) [address], [address] [place] [address] Sodium [Moles/Vol] 141 mmol/L Normal 134-146 [facility] Comment on above: Performed By: #### Jg RAZA 82825-9 #### [facility] ([id number]) [address], [address] [place] [address] Urea nitrogen [Mass/Vol] 23 mg/dL Normal 5-27 [facility] Comment on above: Performed By: #### C , 70695-7 #### [facility] ([id number]) [address], [address] [place] [address] Comprehensive metabolic pane young 12-05-2024 Albumin [Mass/Vol] 4.4 g/dL 3.2 - 5.3 g/dL [facility] ALP [Catalytic activity/Vol] 87 U/L 39 - 130 U/L [facility] ALT No additional P-5'-P [Catalytic activity/Vol] 20 U/L 0 - 31 U/L [facility] Anion gap [Moles/Vol] 7 mmol/L 5 - 15 mmol/L [facility] AST [Catalytic activity/Vol] 21 U/L 0 - 41 U/L [facility] Bilirubin [Mass/Vol] 1.1 mg/dL 0.3 - 1 .2 mg/dL [facility] Calcium [Mass/Vol] 9.7 mg/dL 8.5 - 10. 5 mg/dL [facility] Chloride [Moles/Vol] 101 mmol/L 98 - 10 9 mmol/L [facility] CO2 [Moles/Vol] 33 mmol/L High 22 - 32 mmol/L [facility] Creatinine [Mass/Vol] 0.89 mg/dL 0.40 - 1.00 mg/dL [facility] Comment on above: METHOD TRACEABLE TO IDNY STANDARD eGFR (CKD-EPI)non-race dependent 68 - PINF [facility] Comment on above: Reported eGFR is based on the CKD-EPI 2020 equation that does not use a race coefficient. Glucose [Mass/Vol] 99 mg/dL 65 - 99 mg/dL [facility] Interpretation and review of laboratory results Abnormal [facility] Potassium [Moles/Vol] 4 mmol/L 3.5 - 5.0 mmol/L [facility] Protein [Mass/Vol] 7.1 g/dL 6.0 - 8.0 g/dL [facility] Sodium [Moles/Vol] 141 mmol/L 134 - 146 mmol/L [facility] Urea nitrogen [Mass/Vol] 23 mg/dL 5 - 27 mg/dL [facility] Lipid 1996 panelon 5 Cholesterol [Mass/Vol] 154 mg/dL 150 - 200 mg/dL [facility] Cholesterol in HDL [Mass/Vol] 78 mg/dL 39 - PINF mg/dL [facility] Comment on above: HDL <40 mg/dL - High Risk HDL > or = 40mg/dL- Desirable HDL >60 mg/dL - Negative Risk Cholesterol in LDL [Mass/Vol] 61 mg/dL NINF - 130 mg/dL [facility] Comment on above: LDL <100 mg/dL - Desirable LDL >160 mg/dL - High Risk Cholesterol in VLDL [Mass/Vol] 15 mg/dL 0 - 30 mg/dL [facility] Cholesterol.total/Ch olesterol in HDL [Mass ratio] 2 {ratio} 1.0 - 5.0 [facility] Triglyceride [Mass/Vol] 75 mg/dL 27 - 150 mg/dL [facility] Cholesterol [Mass/Vol] 154 mg/dL Normal 150-200 [facility] Comment on above: Performed By: #### C , 77319-7 #### [facility] ([id number]) [address], [address] [place] [address] Cholesterol in HDL [Mass/Vol] 78 mg/dL Normal >39 [facility] Comment on above: Result Comment: HDL <40 mg/dL - High Risk HDL > or = 40mg/dL- Desirable HDL >60 mg/dL - Negative Risk Performed By: #### Jg RAZA, 23717-1 #### [facility] ([id number]) [address], [address] [address] Cholesterol in LDL [Mass/Vol] 61 mg/dL Normal <130 [facility] Comment on above: Result Comment: LDL <100 mg/dL - Desirable LDL >160 mg/dL - High Risk Performed By: #### Jg RAZA, 70898-6 #### [facility] ([id number]) [address], [address] [place] [address] Cholesterol in VLDL [Mass/Vol] 15 mg/dL Normal 0-30 [facility] Comment on above: Performed By: #### Jg RAZA, 33431-7 #### [facility] ([id number]) [address], [facility] [address] [place] [address] CHOLESTEROL:HDL 2.0 Normal 1.0-5.0 [facility] Comment on above: Performed By: #### Jg RAZA, 62116-2 #### [facility] ([id number]) [address], [facility] [address] [place] [address] Triglyceride [Mass/Vol] 75 mg/dL Normal 27-150 [facility] Comment on above: Performed By: #### Jg RAZA, 33833-5 #### [facility] ([id number]) [address], [facility] [address] [place] [address] No Panel Informationon 12-05 [facility] Ambulatory Visit Summaryon 0 11-11-2024 Ambulatory [...] India SOLIS MD Where: [facility] [address] [address]- You Need to Schedule the Following Appointments Follow Up with India SOLIS MD, URL When: Where: [facility] [address], [place] [address] [phone] Medications What How Much When Instructions Unchanged [...] Feelin (more content not included)... Normal [facility] Urology Office/Clinic Noteon 11-11-2024 Urology Office/Clinic Note [...] [facility] [address], [place] [address] [phone] Additional Instructions: 6 mos w/ KUB and SANIYA Patient Education Kidney Stones, Okij-oc-Hmzo INasrin, personally scribed for Dr. Solis on 11/11/2024 13:11:53. . Documentation recorded by the alvaroibeNasrin, accurately reflects the services(s) I performed and [...] hydrochlorothiazide-spi rono (more content not included)... Normal [facility] Comment on above: Result Comment: Elec tronically Signed By: India SOLIS MD\.br\Date and Time Signed: 11/11/24 13:15 EST\.br\Electronically Co-Signed By: Nasrin Andersen.br\Date and Time Co-Signed: 11/11/24 13:12 EST CNOVon 09-11-2024 CNOV Office Visit (CARDLO ) LESVIA RAMOS I ([id number]) 1950 F Date Time Provider Department 09/11/24 3:00 PM ANDRES BOYD During your visit today, we recorded the following information about you: Pulse Blood pressure Weight 66/minute 122/68 57 kg Andres Boyd MD 09/11/2024 3:14 PM Signed [facility] OF [facility]IONAL CARDIOLOGY OUTPATIENT VISIT DATE Sep 11, 2024 OUTPATIENT VISIT TYPE ESTABLISHED PRIMARY CARE PHYSICIAN: Rachael Canela, [address] [place] [address] CHIEF COMPLAINT: Follow-up Last visit with me: [...] INCREASE OF (more content not included)... Normal [facility] ECG COMPLETEon 09-11-2024 ECG COMPLETE Ventricular Rate : 6 6 BPM Atrial Rate : 60 BPM P-R Interval : 166 ms QRS Duration : 88 ms Q-T Interval : 400 ms QTC Calculation(Bazett) : 419 ms Calculated P Susan : 69 degrees Calculated R Susan : 74 degrees Calculated T Susan : 55 degrees SINUS RHYTHM WITH APCS Septal Infarct , AGE UNDETERMINED ABNORMAL ECG Confirmed by AIMEE HOPE M.D. ([id number]) on 09/12/2024 12:14:14 PM NAME : LESVIA RAMOS PID : [id number] : 1950 Gender : Female Race : ORD : [id number] Procedure Date : Sep 11 2024 14:47:23 [...] AIMEE HOPE M.D. 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 physician: ANDRES BOYD Indication: AVR Technologist: [...] * * * Final * * * [employer] : [id number] Normal [facility] BASIC METABOLIC PANLon 08-08 Anion gap [Moles/Vol] 10 mmol/L Normal 5-15 [facility] Comment on above: Performed By: #### C BCA, BMP, THYR #### [facility] ([id number]) [address], [address] [place] [address] Calcium [Mass/Vol] 9.8 mg/dL Normal 8.5-10.5 [facility] Comment on above: Performed By: #### C BCA, BMP, THYR #### [facility] ([id number]) [address], [address] [place] [address] Chloride [Moles/Vol] 101 mmol/L Normal 98-109 [facility] Comment on above: Performed By: #### C BCA BMP, THYR #### [facility] ([id number]) [address] [address] CO2 [Moles/Vol] 30 mmol/L Normal 22-32 [facility] Comment on above: Performed By: #### C BCA, BMP, THYR #### [facility] ([id number]) [address] [address] Creatinine [Mass/Vol] 1.14 mg/dL High 0.40-1.00 [facility] Comment on above: Result Comment: METH OD TRACEABLE TO IDMS STANDARD Performed By: #### C JH BMP, THYR #### [facility] ([id number]) [address] [address] GFR/1.73 sq M.predicted among non-blacks MDRD (S/P/Bld) [Vol rate/Area] 51 mL/min/{1.73_m2} Low >59 [facility] Comment on above: Result Comment: Reported eGFR is based on the CKD-EPI 2020 equation that does not use a race coefficient. Performed By: #### C BCA, BMP, THYR #### [facility] ([id number]) [address] [address] Glucose [Mass/Vol] 125 mg/dL High 65-99 [facility] Comment on above: Performed By: #### C BCA, BMP, THYR #### [facility] ([id number]) [address] [address] Potassium [Moles/Vol] 4.9 mmol/L Normal 3.5-5.0 [facility] Comment on above: Performed By: #### C BCA, BMP, THYR #### [facility] ([id number]) [address] [place] [address] Sodium [Moles/Vol] 141 mmol/L Normal 134-146 [facility] Comment on above: Performed By: #### C RUBEN PEÑALOZA, THYR #### [facility] ([id number]) [address], [address] [place] [address] Urea nitrogen [Mass/Vol] 24 mg/dL Normal 5-27 [facility] Comment on above: Performed By: #### C RUBEN PEÑALOZA, THYR #### [facility] ([id number]) [address], [facility] [address] [place] [address] CBC AND AUTO DIFFon 10-10-20 24 ABSOLUTE BASOPHIL 0.0 X10E9/L Normal 0.0-0.2 [facility] Comment on above: Performed By: #### C RUBEN PEÑALOZA, THYR #### [facility] ([id number]) [address], [address] [place] [address] ABSOLUTE NEUTROPHIL 4.4 X10E9/L Normal 1.5-6.6 [facility] Comment on above: Performed By: #### C RUBEN PEÑALOZA, THYR #### [facility] ([id number]) [address], [address] [place] [address] Basophils/100 WBC (Bld) 0.8 % Normal [facility] Comment on above: Performed By: #### C RUBEN PEÑALOZA, THYR #### [facility] ([id number]) [address], [address] [place] [address] Eosinophils (Bld) [#/Vol] 0.0 10*3/uL Normal 0.0-0.4 [facility] Comment on above: Performed By: #### C RUBEN PEÑALOZA, THYR #### [facility] ([id number]) [address], [address] [place] [address] Eosinophils/100 WBC (Bld) 0.4 % Normal [facility] Comment on above: Performed By: #### C JH BMP, THYR #### [facility] ([id number]) [address] [address] [place] [address] Erythrocyte distribution width (RBC) [Ratio] 12.5 % Normal 11.5-15.0 [facility] Comment on above: Performed By: #### C JH, BMP, THYR #### [facility] ([id number]) [address] [address] Hematocrit (Bld) [Volume fraction] 46.7 % Normal 35-47 [facility] Comment on above: Performed By: #### C JH BMP, THYR #### [facility] ([id number]) [address] [address] Hemoglobin (Bld) [Mass/Vol] 15.9 g/dL High 11.7-15.5 [facility] Comment on above: Performed By: #### C JH, BMP, THYR #### [facility] ([id number]) [address] [address] Lymphocytes (Bld) [#/Vol] 1.2 10*3/uL Normal 1.0-3.5 [facility] Comment on above: Performed By: #### C JH BMP, THYR #### [facility] ([id number]) [address] [address] Lymphocytes/100 WBC (Bld) 20.2 % Normal [facility] Comment on above: Performed By: #### C JH BMP, THYR #### [facility] ([id number]) [address] [address] MCH (RBC) [Entitic mass] 33.2 pg Normal 27-34 [facility] Comment on above: Performed By: #### C BCA, BMP, THYR #### [facility] ([id number]) [address] [place] [address] MCHC (RBC) [Mass/Vol] 34.1 g/dL Normal 32-36 [facility] Comment on above: Performed By: #### C JH BMP, THYR #### [facility] ([id number]) [address], [address] [place] [address] MCV (RBC) [Entitic vol] 98 fL Normal 80-100 [facility] Comment on above: Performed By: #### C RUBEN PEÑALOZA, THYR #### [facility] ([id number]) [address], [address] [place] [address] Monocytes (Bld) [#/Vol] 0.4 10*3/uL Normal 0-0.9 [facility] Comment on above: Performed By: #### C RUBEN PEÑALOZA, THYR #### [facility] ([id number]) [address], [address] [place] [address] Monocytes/100 WBC (Bld) 6.5 % Normal [facility] Comment on above: Performed By: #### C RUBEN PEÑALOZA, THYR #### [facility] ([id number]) [address], [address] [place] [address] Neutrophils/100 WBC (Bld) 72.1 % Normal [facility] Comment on above: Performed By: #### C RUBEN PEÑALOZA, THYR #### [facility] ([id number]) [address], [address] [place] [address] Platelet mean volume (Bld) [Entitic vol] 10.3 fL Normal 7-12 [facility] Comment on above: Performed By: #### C JH BMP, THYR #### [facility] ([id number]) [address], [address] [place] [address] Platelets (Bld) [#/Vol] 171 10*3/uL Normal 150-450 [facility] Comment on above: Performed By: #### C BCA, BMP, THYR #### [facility] ([id number]) [address] [address] [place] [address] RBC COUNT 4.79 X10E12/L Normal 3.80-5.20 [facility] Comment on above: Performed By: #### C BCA, BMP, THYR #### [facility] ([id number]) [address] [address] WBC (Bld) [#/Vol] 6.2 10*3/uL Normal 4.0-11.0 [facility] Comment on above: Performed By: #### C BCA, BMP, THYR #### [facility] ([id number]) [address] [address] THYROID PROFILEon 08-08-2024 Free T4 [Mass/Vol] 1.13 ng/dL Normal 0.61-1.60 [facility] Comment on above: Performed By: #### C BCA, BMP, THYR #### [facility] ([id number]) [address] [address] TSH 2.22 uIU/mL Normal 0.49-4.67 [facility] Comment on above: Performed By: #### C BCA, BMP, THYR #### [facility] ([id number]) [address] [address] Ambulatory Visit Summaryon 0 06-18-2024 Ambulatory Visit Summary Ambulatory Visit Summary RICHARD LESVIA I :1950 Visit Date:06/18/2024 Ambulatory Visit Instructions Your Diagnosis History of renal stone Stress incontinence Your Care Team Attending Physician - Apollo OVALLES, DAT, Radha Guo Primary Care Physician - RACHAEL [...] Schedule the Following Appointments Follow Up with Apollo OVALLES, LALI-C, Radha X, FAM, URL When: Comments: PRN Where: Medications [...] of y (more content not included)... Normal [facility] Urology Office/Clinic Noteon 06-18-2024 Urology Office/Clinic Note [...] - negative for stones KUB 06/17/24 @ [facility] pending Report not available for today's visit [...] if sxs arise Follow-up With When Contact DAT Ndiaye APRN, Radha Guo, DONNA, URL Additional Instructions: PRN Patient Education Urinary Incontinence I, John Orozco, personally scribed for DAT Mackey on 06/18/2024 [...] virus vaccine, inactivated 08/31/2022 Recorded SARS-CoV-2 (COVID-19) mRNAMUL.[id number] 08/16/2022 Recorded SARSCoV2 mRNA(cjalahjww-vxuv-koe ros) vac 02/17/2022 Recorded influenza virus vaccine, [...] Recorded pneumococcal (more content not included)... Normal [facility] Comment on above: Result Comment: Elec tronically Signed By: DAT Bustillos APRN, [place] X\.br\Date and Time Signed: 06/18/24 09:22 EDT\.br\Electronically Co-Signed By: John Orozco\.br\Date and Time Co-Signed: 06/18/24 09:14 EDT Surgical Pathologyon 024 Surgical Pathology Normal [facility] Comment on above: Result Comment: [facility] [address] [place] [address] Surgical Pathology Consultation Patient Name:LESVIA RAMOS I.:1950 (Age: 73)Gender:FTaken:4Reported:05/31/2024hysician(s):Rachael Canela MD ([phone])Copy To: Rec. #:[id number]: #[id number] Final Pathologic Diagnosis 1. Ascending colon polyp: Hyperplastic polyp fragments. 2. Colon polyp at 50: Tubular adenoma. 3. Colon polyp at 45: Tubular adenoma. 4. Colon polyp at 25: Tubular adenoma. Report Electronically Signed Out 05/31/2024Minoo Schneider MD Interpretation performed at [facility], [address] [facility] [address], License number: [id number]. Clinical History Screening. Gross Description 1. Received in formalin labeled, RICHARD, ascending polyp are 2 rucker delicate, focally erythematous soft tissue fragments, 0.3-0.6 cm in greatest dimension. The specimens are filtered and submitted in a single cassette. (1, ns, [id number], m7) TB 2. Received in formalin labeled, RICHARD, polyp at 50 is a pale-rucker delicate soft tissue fragment, 0.3 cm in greatest dimension. The specimen is filtered and submitted in a single cassette. (1, ns, [id number], m7) TB 3. Received in formalin labeled, RICHARD, polyp 45 is a pale-rucker delicate soft tissue fragment, 0.3 cm in greatest dimension. The specimens are filtered and submitted in a single cassette. (1, ns, [id number], m7) TB 4. Received in formalin labeled, RICHARD, polyp at 25 is a pale-rucker delicate soft tissue fragment, 0.5 cm in greatest dimension. The specimen is filtered and submitted in a single cassette. (1, ns, [id number], m7) TB tgb/05/29/2024SSI Specimen(s) Received 1: Ascending colon polyp 2: Colon polyp at 50 3: Colon polyp at 45 4: Colon polyp at 25 Fee Codes(s): 1; 66067 2; 12611 3; 85224 4; 14459 Basic metabolic 2000 panelon 12-27-2023 Anion gap [Moles/Vol] 11 mmol/L 9 - 18 mmol/L [facility] Calcium [Mass/Vol] 9.7 mg/dL 8.5 - 10. 2 mg/dL [facility] Chloride [Moles/Vol] 103 mmol/L 97 - 10 5 mmol/L [facility] CO2 [Moles/Vol] 29 mmol/L 22 - 30 mmol/L [facility] Creatinine [Mass/Vol] 1.09 mg/dL High 0.58 - 0.96 mg/dL [facility] Estimated Glomerular Filtration Rate 54 mL/min/1.73m Low >=60 mL/min/1.73m [facility] Glucose [Mass/Vol] 76 mg/dL 74 - 99 mg/dL [facility] Potassium [Moles/Vol] 4.3 mmol/L 3.7 - 5.1 mmol/L [facility] Sodium [Moles/Vol] 143 mmol/L 136 - 144 mmol/L [facility] Urea nitrogen [Mass/Vol] 24 mg/dL High 7 - 21 mg/dL [facility] ECG COMPLETEon 12-27-2023 Atrial Rate 70 BPM [facility] Calculated P Susan 70 degrees [facility] [place] [facility] Calculated R Susan 84 degrees [facility] [place] [facility] Calculated T Susan 66 degrees [facility] [place] [facility] P-R Interval 172 ms [facility] QRS Duration 86 ms [facility] QT Interval 414 ms [facility] QTC Calculation (Bazett) 447 ms [facility] Ventricular Rate 70 BPM [facility] DEXA SCAN CENTRAL SKELETALon 12-26-2023 DEXA SCAN [...] Cunningham MD on 12/26/2023 3:04 PM Normal [facility] CBC panel Auto (Bld)on 06-27 Erythrocyte distribution width (RBC) [Ratio] 12.0 % 11.5 - 15.0 % [facility] Hematocrit (Bld) [Volume fraction] 46.3 % High 36.0 - 46.0 % [facility] Hemoglobin (Bld) [Mass/Vol] 15.2 g/dL 11.5 - 15.5 g/dL [facility] MCH (RBC) [Entitic mass] 32.3 pg 26.0 - 34.0 pg [facility] MCHC (RBC) [Mass/Vol] 32.8 g/dL 30.5 - 36.0 g/dL [facility] MCV (RBC) [Entitic vol] 98.5 fL 80.0 - 100.0 fL [facility] Nucleated RBC (Bld) [#/Vol] <0.01 k/uL [facility] Platelet mean volume (Bld) [Entitic vol] 11.4 fL 9.0 - 12.7 fL [facility] Platelets (Bld) [#/Vol] 144 10*3/uL Low 150 - 400 k/uL [facility] RBC (Bld) [#/Vol] 4.70 10*6/uL 3.90 - 5.2 0 m/uL [facility] WBC (Bld) [#/Vol] 6.26 10*3/uL 3.70 - 11. 00 k/uL [facility] XR SHOULDER GENERAL 3V OR MO RE AP/TRUE AP/OTHER LEFTon 05-30-2023 [facility] Basic metabolic 2000 panelon 12-27-2022 Anion gap [Moles/Vol] 7 mmol/L Low 9 - 18 mmol/L [facility] Calcium [Mass/Vol] 9.4 mg/dL 8.5 - 10. 2 mg/dL [facility] Chloride [Moles/Vol] 106 mmol/L High 97 - 10 5 mmol/L [facility] CO2 [Moles/Vol] 30 mmol/L 22 - 30 mmol/L [facility] Creatinine [Mass/Vol] 0.81 mg/dL 0.58 - 0.96 mg/dL [facility] Estimated Glomerular Filtration Rate 77 mL/min/1.73m >=60 mL/min/1.73m [facility] Glucose [Mass/Vol] 64 mg/dL Low 74 - 99 mg/dL [facility] Potassium [Moles/Vol] 4.7 mmol/L 3.7 - 5.1 mmol/L [facility] Sodium [Moles/Vol] 143 mmol/L 136 - 144 mmol/L [facility] Urea nitrogen [Mass/Vol] 18 mg/dL 7 - 21 mg/dL [facility] LIPID PANEL, NONFASTINGon Cholesterol [Mass/Vol] 148 mg/dL <200 mg/dL [facility] HDL Cholesterol, Nonfasting 69 mg/dL >39 mg/dL [facility] LDL Cholesterol, Nonfasting 67 mg/dL <100 mg/dL [facility] LDL/HDL Ratio, Nonfasting 0.97 mg/dL <2.54 mg/dL [facility] Non HDL Cholesterol, Nonfasting 79 mg/dL <130 mg/dL [facility] Total Chol/HDL Ratio, Nonfasting 2.14 mg/dL <5.10 mg/dL [facility] Triglycerides, Nonfasting 62 mg/dL <150 mg/dL [facility] VLDL Cholesterol, Nonfasting 12 mg/dL <30 mg/dL [facility] MAGNESIUM BLDon 12-27-2022 Magnesium [Mass/Vol] 2.2 mg/dL 1.7 - 2 .3 mg/dL [facility] TSH BLDon 12-27-2022 TSH Qn 0.577 m[IU]/L 0.270 - 4.200 mIU/L [facility] XR KUB 1 VIEWon 12-05-2022 XR [...] MEERA HARTMANN Date: 2022-12-05 11:09 Normal [facility] COMPREHENSIVE METABOLIC PANE Young 11-09-2021 Albumin [Mass/Vol] 4.3 g/dL Normal 3.6-5.1 [facility] Comment on above: Performed By: #### 1 0231, 7600, 61642 #### [facility] [place] [address] Collar Worker: Abraham Garcia MD Albumin/Globulin [Mass ratio] 1.8 {ratio} Normal 1.0-2.5 [facility] Comment on above: Performed By: #### 1 0231, 7600, 62042 #### [facility] [place] [address] Collar Worker: Abraham Garcia MD ALP [Catalytic activity/Vol] 84 U/L Normal 37-153 [facility] Comment on above: Performed By: #### 1 0231, 7600, 15776 #### [facility] [place] [address] Collar Worker: Abraham Garcia MD ALT [Catalytic activity/Vol] 16 U/L Normal 6-29 [facility] Comment on above: Performed By: #### 1 0231, 7600, 47450 #### [facility] [address] [address] Collar Worker: Abraham Garcia MD AST [Catalytic activity/Vol] 17 U/L Normal 10-35 [facility] Comment on above: Performed By: #### 1 0231, 7599, 75456 #### [facility] of [address], [address] [place] [address] Collar Worker: Abraham Garcia MD Bilirubin [Mass/Vol] 1.0 mg/dL Normal 0.2-1.2 [facility] Comment on above: Performed By: #### 1 0231, 7599, 62630 #### [facility] of [address], [address] [place] [address] Collar Worker: Abraham Garcia MD BUN/CREATININE RATIO NOT APPLICABLE Normal 6-22 [facility] Comment on above: Performed By: #### 1 023, 7599, 80917 #### [facility] of [address], [address] [place] [address] Collar Worker: Abraham Garcia MD Calcium [Mass/Vol] 9.3 mg/dL Normal 8.6-10.4 [facility] Comment on above: Performed By: #### 1 023, 7599, 58164 #### [facility] of [place] [address] Collar Worker: Abraham Garcia MD Chloride [Moles/Vol] 104 mmol/L Normal 98-110 [facility] Comment on above: Performed By: #### 1 023, 7599, 29005 #### [facility] of [address], [address] [place] [address] Collar Worker: Abraham Garcia MD CO2 [Moles/Vol] 31 mmol/L Normal 20-32 [facility] Comment on above: Performed By: #### 1 0231, 7599, 17988 #### [facility] of [address], [address] [place] [address] Collar Worker: Abraham Garcia MD Creatinine [Mass/Vol] 0.89 mg/dL Normal 0.60-0.93 [facility] Comment on above: Result Comment: For patients >49 years of age, the reference limit for Creatinine is approximately 13% higher for people identified as -Mongolian. Performed By: #### 1 0231, 0, 40395 #### [facility] [place] [address] Collar Worker: Abraham Garcia MD eGFR NON-AFR. DANISH 65 mL/min/1.73m2 Normal > OR = 60 [facility] Comment on above: Performed By: #### 1 023, 0, 35538 #### [facility] [place] [address] Collar Worker: Abraham Garcia MD GFR/1.73 sq M.predicted among blacks MDRD (S/P/Bld) [Vol rate/Area] 76 mL/min/{1.73_m2} Normal > OR = 60 [facility] Comment on above: Performed By: #### 1 023, 7599, 30578 #### [facility] [place] [address] Collar Worker: Abraham Garcia MD Globulin (S) [Mass/Vol] 2.4 g/dL Normal 1.9-3.7 [facility] Comment on above: Performed By: #### 1 023, 7599, 80888 #### [facility] [place] [address] Collar Worker: Abraham Garcia MD Glucose [Mass/Vol] 90 mg/dL Normal 65-99 [facility] Comment on above: Result Comment: Fasting reference interval Performed By: #### 1 0231, 0, 92406 #### [facility] [place] [address] Collar Worker: Abraham Garcia MD Potassium [Moles/Vol] 4.0 mmol/L Normal 3.5-5.3 [facility] Comment on above: Performed By: #### 1 023, 0, 91263 #### [facility] [address] [place] [address] Collar Worker: Abraham aGrcia MD Protein [Mass/Vol] 6.7 g/dL Normal 6.1-8.1 [facility] Comment on above: Performed By: #### 1 0231, 7600, 96816 #### [facility] [address], [address] [place] [address] Collar Worker: Abraham Garcia MD Sodium [Moles/Vol] 140 mmol/L Normal 135-146 [facility] Comment on above: Performed By: #### 1 0231, 7600, 55508 #### [facility] of [place] [address] Collar Worker: Abraham Garcia MD Urea nitrogen [Mass/Vol] 22 mg/dL Normal 7-25 [facility] Comment on above: Performed By: #### 1 0231, 7600, 94614 #### [facility] [place] [address] Collar Worker: Abraham Garcia MD LIPID PANEL, [facility] 10-30 Cholesterol [Mass/Vol] 165 mg/dL Normal <200 [facility] Comment on above: Order Comment: FASTI NG:YES FASTING: YES Performed By: #### 1 0231, 7600, 56407 #### [facility] [place] [address] Collar Worker: Abraham Garcia MD Cholesterol in HDL [Mass/Vol] 78 mg/dL Normal > OR = 50 [facility] Comment on above: Order Comment: FASTI NG:YES FASTING: YES Performed By: #### 1 0231, 7600, [id number] #### [facility] [place] [address] Collar Worker: Abraham Garcia MD Cholesterol in LDL [Mass/Vol] [...] LDL-C. Kai GOMEZ et al. ZANDER. 2013;310(19): 8571-6066 (http://[employer].Quandoo/faq/BLZ387) Performed By: #### 1 0231, 7600, [id number] #### [facility] [address], [address] [place] [address] Collar Worker: Abraham Garcia MD Cholesterol.total/Ch olesterol in HDL [Mass ratio] 2.1 {ratio} Normal <5.0 [facility] Comment on above: Order Comment: FASTI NG:YES FASTING: YES Performed By: #### 1 0231, 7600, [id number] #### [facility] [address], [address] [place] [address] Collar Worker: Abraham Garcia MD NON HDL CHOLESTEROL 87 mg/dL (calc) Normal <130 [facility] Comment on above: Order Comment: FASTI NG:YES FASTING: YES Result Comment: For patients with diabetes plus 1 major ASCVD risk factor, treating to a non-HDL-C goal of <100 mg/dL (LDL-C of <70 mg/dL) is considered a therapeutic option. Performed By: #### 1 0231, 7600, [id number] #### [facility] [address], [address] [place] [address] Collar Worker: Abraham Garcia MD Triglyceride [Mass/Vol] 61 mg/dL Normal <150 [facility] Comment on above: Order Comment: FASTI NG:YES FASTING: YES Performed By: #### 1 0231, 7600, [id number] #### [facility] [address], [address] [place] [address] Collar Worker: Abraham Garcia MD TSH+FREE T4on 11-09-2021 Free T4 [Mass/Vol] 1.4 ng/dL Normal 0.8-1.8 [facility] Comment on above: Performed By: #### 1 0231, 7600, [id number] #### [facility] [address], [address] [place] [address] Collar Worker: Abraham Garcia MD TSH Qn 1.19 m[IU]/L Normal 0.40-4.50 [facility] Comment on above: Performed By: #### 1 0231, 7600, [id number] #### [facility] [address], [address] [place] [address] Collar Worker: Abraham Garcia MD OBSOLETEon 07-21-2020 OBSOLETE Refill (AVPRAD) LESVIA RAMOS I ([id number]) 1950 F Date Time Provider Department 07/21/20 [...] replacement) 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] SVT (supraventricular tachycardia) ([facility]) [I47.1] Essential hypertension [I10] Order(s):metoprolol [...] Encounter Status:Closed by ANDRES BOYD on 07/21/20 [facility] Large Joint Arthro/Inj: L solis bacromial bursa [facility] Vital Signs Date Time Vital Sign Value Performing Clinician Faci litnaga 07-04-2025 09:30-0400 Body height 161.3 cm Rachael Canela DO Work Phone: [employer] 07-04-2025 09:30-0400 Body mass index (BMI) [Ratio] 22.49 kg/m2 Rachael Canela DO Coeurative Phone: [employer] 07-04-2025 09:30-0400 Body temperature 97.5 [degF] Rachael Canela DO Work Phone: [employer] 07-04-2025 09:30-0400 Body weight 58.51 kg Rachael Canela DO [employer] Phone: [employer] 07-04-2025 09:30-0400 Diastolic blood pressure 80 mm[Hg] Rachael Canela DO [employer] Phone: [employer] 07-04-2025 09:30-0400 Heart rate 62 /min Rachael Canela DO Work Phone: [facility] 07-04-2025 09:30-0400 Respiratory rate 20 /min Rachael Canela DO Work Phone: [facility] 07-04-2025 09:30-0400 SaO2% (BldA) [Mass fraction] 100 % Rachael Canela DO Work Phone: [facility] 07-04-2025 09:30-0400 Systolic blood pressure 118 mm[Hg] Rachael Canela DO Work Phone: [facility] 03-25-2025 13:24-0400 Body mass index (BMI) [Ratio] 22.25 kg/m2 Lavisa Mae CREDIT CARD CONTROL CLERK.PAINT PREPPER Work Phone: [facility] 03-25-2025 13:24-0400 Body weight 58.8 kg Lavisa Mae CREDIT CARD CONTROL CLERK.PAINT PREPPER Work Phone: [facility] 03-25-2025 13:24-0400 Diastolic blood pressure 70 mm[Hg] Lavisa Mae CREDIT CARD CONTROL CLERK.PAINT PREPPER Work Phone: [facility] 03-25-2025 13:24-0400 Heart rate 76 /min Lavisa Mae CREDIT CARD CONTROL CLERK.PAINT PREPPER Work Phone: [facility] 03-25-2025 13:24-0400 Systolic blood pressure 131 mm[Hg] Lavisa Mae CREDIT CARD CONTROL CLERK.PAINT PREPPER Work Phone: [facility] 12-05-2024 12:56-0500 Body height 161.3 cm Rachael Canela DO Work Phone: [facility] 12-05-2024 12:56-0500 Body mass index (BMI) [Ratio] 22.18 kg/m2 Rachael Canela DO Work Phone: [facility] 12-05-2024 12:56-0500 Body temperature 97 [degF] Rachael Canela DO Work Phone: [facility] 12-05-2024 12:56-0500 Body weight 57.7 kg R[facility]ael [facility]uhas DO [facility] 12-05-2024 12:56-0500 Diastolic blood pressure 70 mm[Hg] Rachael Hernandezhas DO Work Phone: [facility] 12-05-2024 12:56-0500 Heart rate 88 /min Rachael Chairezs DO Work Phone: [facility] 12-05-2024 12:56-0500 SaO2% (BldA) [Mass fraction] 98 % Rachael Chairezs DO Work Phone: [facility] 12-05-2024 12:56-0500 Systolic blood pressure 110 mm[Hg] Rachael Hernandezhas DO Work Phone: [facility] [email or web address] [facility] 12-03-2024 13:55-0500 Body height 161.3 cm Rachael Chairezs DO Work Phone: [facility] 12-03-2024 13:55-0500 Body mass index (BMI) [Ratio] 22.32 kg/m2 Rachael Chairezs DO Work Phone: [facility] 12-03-2024 13:55-0500 Body weight 58.06 kg Rachael Chairezs DO Work Phone: [facility] [email or web address] [facility] 12-03-2024 13:55-0500 Diastolic blood pressure 68 mm[Hg] Rachael Chairezs DO Work Phone: [facility] 12-03-2024 13:55-0500 Systolic blood pressure 117 mm[Hg] Rachael Chairezs DO Work Phone: [facility] 11-11-2024 12:28-0500 Blood Pressure Location [place] SOLIS [facility] 11-11-2024 12:28-0500 Body temperature 98.6 [degF] [place] SOLIS [facility] 11-11-2024 12:28-0500 Diastolic blood pressure 79 mm[Hg] [place] SOLIS [facility] 11-11-2024 12:28-0500 Heart rate 68 /min Idnia SOLIS [facility] 11-11-2024 12:28-0500 Respiratory rate 17 /min [place] SOLIS [facility] 11-11-2024 12:28-0500 Systolic blood pressure 122 mm[Hg] [place] SOLIS [facility] 09-11-2024 14:45-0500 Body mass index (BMI) [Ratio] 21.57 kg/m2 Andres Boyd MD Work Phone: [facility] 09-11-2024 14:45-0500 Body weight 57 kg Andres Boyd MD Work Phone: [facility] 09-11-2024 14:45-0500 Diastolic blood pressure 68 mm[Hg] Andres Boyd MD Work Phone: [facility] 09-11-2024 14:45-0500 Heart rate 66 /min Andres Boyd MD Work Phone: [facility] 09-11-2024 14:45-0500 Systolic blood pressure 122 mm[Hg] Andres Boyd MD Work Phone: [facility] 08-08-2024 12:56-0400 Body height 162.6 cm Rachael Canela DO Work Phone: [facility] 08-08-2024 12:56-0400 Body mass index (BMI) [Ratio] 21.25 kg/m2 Rachael Canela DO [facility] 08-08-2024 12:56-0400 Body temperature 97 [degF] Rachael Canela DO Work Phone: [facility] 08-08-2024 12:56-0400 Body weight 56.16 kg Rachael Canela DO Work Phone: [facility] [email or web address] [facility] 08-08-2024 12:56-0400 Diastolic blood pressure 68 mm[Hg] Rachael Canela DO Work Phone: [facility] 08-08-2024 12:56-0400 Heart rate 89 /min Rachael Canela DO Work Phone: [facility] 08-08-2024 12:56-0400 SaO2% (BldA) [Mass fraction] 99 % Rachael Canela DO Work Phone: [facility] 08-08-2024 12:56-0400 Systolic blood pressure 102 mm[Hg] Rachael Canela DO Work Phone: [facility] 02-28-2024 13:36-0400 Body mass index (BMI) [Ratio] 21.68 kg/m2 Andres Boyd MD Work Phone: [facility] 02-28-2024 13:36-0400 Body weight 57.3 kg Andres Boyd MD Work Phone: [facility] 02-28-2024 13:36-0400 Diastolic blood pressure 77 mm[Hg] Andres Boyd MD Work Phone: [facility] 02-28-2024 13:36-0400 Heart rate 64 /min Andres Boyd MD Work Phone: [facility] 02-28-2024 13:36-0400 Systolic blood pressure 120 mm[Hg] Andres Boyd MD Work Phone: [facility] 12-27-2023 09:39-0500 Body weight 59.88 kg Andres Boyd MD Work Phone: [facility] 12-27-2023 09:39-0500 Diastolic blood pressure 55 mm[Hg] Andres Boyd MD Work Phone: [facility] 12-27-2023 09:39-0500 Heart rate 69 /min Andres Boyd MD Work Phone: [facility] 12-27-2023 09:39-0500 Systolic blood pressure 114 mm[Hg] Andres Boyd MD Work Phone: [facility] 11-28-2023 11:00-0500 Blood Pressure Location Radha Orzech [facility] 11-28-2023 11:00-0500 Diastolic blood pressure 91 mm[Hg] Radha Orzech [facility] 11-28-2023 11:00-0500 Heart rate 72 /min Radha Orzech [facility] 11-28-2023 11:00-0500 Respiratory rate 16 /min Radha Orzech [facility] 11-28-2023 11:00-0500 Systolic blood pressure 141 mm[Hg] Radha Orzech [facility] 11-10-2023 09:25-0500 Body height 162.6 cm Rachael Canela DO Work Phone: [employer] 11-10-2023 09:25-0500 Body mass index (BMI) [Ratio] 22.52 kg/m2 Rachael Canela DO Work Phone: [employer] 11-10-2023 09:25-0500 Body temperature 97.9 [degF] Rachael Canela DO Work Phone: [employer] 11-10-2023 09:25-0500 Body weight 59.51 kg Rachael Canela DO Work Phone: [employer] 11-10-2023 09:25-0500 Diastolic blood pressure 76 mm[Hg] Rachael Canela DO Work Phone: [facility] [email or web address] [facility] 11-10-2023 09:25-0500 Heart rate 77 /min Rachael Canela DO Work Phone: [facility] 11-10-2023 09:25-0500 SaO2% (BldA) [Mass fraction] 99 % Rachael Canela DO Work [facility]: [facility] 11-10-2023 09:25-0500 Systolic blood pressure 110 mm[Hg] Rachael Canela DO Work Phone: [facility] 06-27-2023 08:53-0400 Body weight 58.97 kg Andres Boyd MD Work Phone: [facility] 06-27-2023 08:53-0400 Diastolic blood pressure 82 mm[Hg] Andres Boyd MD Work Phone: [facility] 06-27-2023 08:53-0400 Heart rate 69 /min Andres Boyd MD Work Phone: [facility] 06-27-2023 08:53-0400 Systolic blood pressure 140 mm[Hg] Andres Boyd MD Work Phone: [facility] 12-27-2022 08:51-0500 Body weight 60.78 kg Lavisa Mae CREDIT CARD CONTROL CLERK.PAINT PREPPER Work Phone: [facility] 12-27-2022 08:51-0500 Diastolic blood pressure 84 mm[Hg] Lavisa Mae CREDIT CARD CONTROL CLERK.PAINT PREPPER Work Phone: [facility] 12-27-2022 08:51-0500 Heart rate 54 /min Lavisa Mae CREDIT CARD CONTROL CLERK.PAINT PREPPER Work Phone: [facility] 12-27-2022 08:51-0500 Systolic blood pressure 126 mm[Hg] Lavisa Mae CREDIT CARD CONTROL CLERK.PAINT PREPPER Work Phone: [facility] 12-09-2022 08:27-0500 Blood Pressure Location [place] [facility] 12-09-2022 08:27-0500 Diastolic blood pressure 69 mm[Hg] Indiaangel luis SOLIS [facility] 12-09-2022 08:27-0500 Heart rate 68 /min [place] SOL[place] [facility] 12-09-2022 08:27-0500 Respiratory rate 16 /min [place] SOLIS [facility] 12-09-2022 08:27-0500 Systolic blood pressure 117 mm[Hg] Indiaangel luis SOLIS [facility] Encounters Encounter Date Encounter Type Care Provider Facility Start: 07-14-2025 ambulatory [place] SOLIS Facili ty:[facility] Start: 07-04-2025 End: 07-04-2025 Office outpatient visit 25 minutes Rachael Canela DO [facility] Comment on above: Essential hypertensi on (Primary Dx); Hypothyroidism, unspecified type; Hyperlipidemia, unspecified hyperlipidemia type Start: 07-04-2025 End: 07-04-2025 ambulatory [facility] Start: 06-02-2025 End: 06-02-2025 ambulatory India SOLIS Facility:[facility] Start: 06-02-2025 End: 06-02-2025 Patient encounter procedure [place] SOLIS [facility] Start: 05-28-2025 End: 05-28-2025 Refill Rachael Canela DO [facility] Comment on above: Hypothyroidism, unsp ecified Start: 05-25-2025 End: 05-25-2025 Refill Rachael Canela DO Work Phone: [facility] Comment on above: Hyperlipidemia, unsp ecified Start: 03-31-2025 End: 03-31-2025 Telephone encounter Fanny Bae[facility] Start: 03-26-2025 End: 03-26-2025 Follow-up encounter Nitza Mae PAINT PREPPER Work Phone: Cardiology Start: 03-25-2025 End: 03-25-2025 ambulatory [facility] Facility:[facility] Start: 03-25-2025 End: 03-25-2025 Patient encounter procedure Nitza Mae CREDIT CARD CONTROL CLERK.PAINT PREPPER Work Phone: Cardiology Comment on above: Nonrheumatic tricusp id valve regurgitation (Primary Dx); Abnormal bruising; SVT (supraventricular tachycardia) (HCC); Chronic diastolic heart failure (HCC); Mixed hyperlipidemia; S/P AVR (aortic valve replacement) 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; Premature atrial complexes; History of heparin-induced thrombocytopenia; Essential (primary) hypertension Start: 03-25-2025 End: 03-25-2025 ambulatory [facility] Facility:[facility] Start: 03-17-2025 End: 03-17-2025 ambulatory [facility] Facility:[facility] Start: 12-22-2024 End: 12-23-2024 Refill Andres Boyd MD Work Phone: Cardiology Comment on above: Refill Request Start: 12-05-2024 End: 12-05-2024 ambulatory [facility] Start: 12-05-2024 End: 12-05-2024 Office outpatient visit 25 minutes Rachael Canela DO Work Phone: [facility] Comment on above: Essential hypertensi on (Primary Dx); Hyperlipidemia, unspecified hyperlipidemia type; Hypothyroidism, unspecified type; Sensorineural hearing loss (SNHL) of right ear with restricted hearing of left ear Start: 12-05-2024 End: 12-05-2024 ambulatory [facility] Start: 12-03-2024 End: 12-03-2024 Patient encounter procedure Rachael Canela DO Work Phone: [facility] Comment on above: Encounter for subseq uent annual wellness visit (AWV) in Medicare patient (Primary Dx); Chronic diastolic heart failure ([facility]); 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-induced thrombocytopenia) ([facility]); SVT (supraventricular tachycardia) ([facility]); Encounter for screening mammogram for malignant neoplasm of breast Start: 12-03-2024 End: 12-03-2024 ambulatory RACHAEL CANELA [facility] Start: 11-20-2024 End: 11-20-2024 Refill Rachael Canela DO Work Phone: [facility] Comment on above: Hyperlipidemia, unsp ecified Start: 11-11-2024 End: 11-11-2024 ambulatory [place] SOLIS Facility:[facility] Start: 11-11-2024 End: 11-11-2024 Patient encounter procedure [place] SOLIS [facility] Start: 11-01-2024 End: 11-05-2024 Telephone encounter Rachael Canela Work Phone: [facility] Start: 10-30-2024 End: 10-30-2024 Refill Rachael Hernandezesther GILL Work Phone: [facility] [...] hyperlipidemia Start: 09-11-2024 End: 09-11-2024 ambulatory ANDRES BOYD Facility:[facility] Start: 08-30-2024 End: 08-30-2024 Bamboo flowsheet Vandana Rodriguez PT [facility] Start: 08-30-2024 End: 08-30-2024 Bamboo flowsheet Vandana Rodriguez PT [facility] Start: 08-30-2024 End: 08-30-2024 ambulatory Vandana Rodriguez PT [facility] Comment on above: Sciatica, left side (Primary Dx) Start: 08-27-2024 End: 08-28-2024 ambulatory Rosalio Yu GIMP TACKER [facility] Comment on above: Sciatica, left side (Primary Dx) Start: 08-27-2024 End: 08-27-2024 Bamboo flowsheet Rosalio Yu GIMP TACKER [facility] Start: 08-27-2024 End: 08-27-2024 Bamboo flowsheet Rosalio Yu GIMP TACKER [facility] Start: 08-23-2024 End: 08-23-2024 Bamboo flowsheet Vnadana Rodriguez PT [facility] Start: 08-23-2024 End: 08-23-2024 Bamboo flowsheet Vandana Rodriguez PT [facility] Start: 08-23-2024 End: 08-23-2024 Refill Cheyanne Franz APRN.CNP Work Phone: Cardiology Comment on above: Refill [...] Start: 08-16-2024 End: 08-16-2024 Refill Rachael Canela DO Work Phone: [facility] Comment on above: Hyperlipidemia, unsp ecified Start: 08-15-2024 End: 08-15-2024 Bamboo flowsheet Vandana Rodriguez PT [facility] Start: 08-15-2024 End: 08-15-2024 Bamboo flowsheet Vandana Rodriguez PT [facility] Start: 08-15-2024 End: 08-15-2024 ambulatory Vandana Rodriguez PT [facility] Comment on above: Sciatica, left side (Primary Dx) Start: 08-08-2024 End: 08-08-2024 ambulatory [facility] Start: 08-08-2024 End: 08-08-2024 Office outpatient visit 25 minutes Rachael Canela DO Work Phone: [facility] Comment on above: Petechiae or ecchymo ses (Primary Dx); Sciatica of left side; Hypothyroidism, unspecified type Start: 08-08-2024 End: 08-08-2024 ambulatory [facility] Start: 06-18-2024 End: 06-18-2024 ambulatory Radha X Ormanuelach Facility:[facility] Start: 06-18-2024 End: 06-18-2024 Patient encounter procedure Radha X Orsha [facility] Start: 05-29-2024 End: 05-30-2024 Evaluation and management of inpatient [facility] Start: 05-28-2024 End: 05-28-2024 ambulatory h Pat Phone Call Provider 1 [facility] - Pre Admit Start: 05-28-2024 End: 05-28-2024 ambulatory [facility] Start: 05-13-2024 End: 05-13-2024 Refill Rachael Canela DO Work Phone: [facility] Comment on above: Hyperlipidemia, unsp ecified Start: 05-04-2024 End: 05-05-2024 Refill Rachael Canela DO Work Phone: [facility] [...] Telephone encounter Andres castle MD Work Phone: [address] [place] [address] Comment on above: Medication Problem medication questions / cost issue Start: 12-27-2023 End: 12-27-2023 Patient encounter procedure Andres Boyd MD Work Phone: Cardiology Comment on above: S/P AVR (aortic valv e replacement) and aortoplasty (Primary Dx); SVT (supraventricular tachycardia) (HCC); Nonrheumatic tricuspid valve regurgitation; PVC (premature ventricular contraction); Acute on chronic diastolic heart failure (HCC) Start: 12-21-2023 End: 12-21-2023 ambulatory RACHAEL CANELA [facility] Start: 12-20-2023 End: 12-20-2023 ambulatory DO Rachael Hernandezesther Work Phone: [facility] Work Phone: Start: 12-20-2023 End: 12-20-2023 Patient encounter procedure DO Rachael Canela Work Phone: [facility] Work Phone: Start: 11-28-2023 End: 11-28-2023 Patient encounter procedure Rachael Canela DO Work Phone: [facility] Comment on above: Encounter for subseq uent annual wellness visit (AWV) in Medicare patient (Primary Dx); Colon cancer screening; Encounter for screening mammogram for malignant neoplasm of breast; Postmenopausal status; Screening for osteoporosis Start: 11-28-2023 End: 01-30-2024 Patient encounter procedure Radha Bustillos 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-induced thrombocytopenia) ([facility]) Start: 11-06-2023 Refill Rachael Kaufman Rola Bess O Work Phone: [facility] Comment on above: Hyperlipidemia, unsp ecified Start: 10-24-2023 Refill Rachael Kaufman Rola Maria Alejandra O Work Phone: [facility] [...] APC (atrial premature contractions); SVT (supraventricular tachycardia) ([facility]); Primary hypertension; Venous (peripheral) insufficiency Start: 05-30-2023 End: 05-30-2023 Patient encounter procedure Nicholas Hines DO Work Phone: Orthopaedics Comment on above: Impingement syndrome of left shoulder (Primary Dx) Start: 05-30-2023 End: 05-30-2023 Subsequent hospital visit by physician Gregory Guerin [facility] Rej Work Phone: Radiology Comment on above: Pain [R52] Start: 04-28-2023 ambulatory Andres marin MD Work Phone: Cardiology Comment on above: new medication Start: 12-27-2022 End: 12-27-2022 Patient encounter procedure Nitza Mae PAINT PREPPER Work Phone: Cardiology Comment on above: S/P AVR (aortic valv e replacement) and aortoplasty (Primary Dx); SVT (supraventricular tachycardia) (HCC); APC (atrial premature contractions); Primary hypertension; Patchy loss of hair; Mixed hyperlipidemia; Typical atrial flutter (HCC) Start: 12-17-2022 Refill Cheyanne nielson APRN.PAINT PREPPER Work Phone: Cardiology Comment on above: Refill Request Start: 12-09-2022 End: 12-09-2022 Patient encounter procedure [place] SOLIS [facility] Start: 12-05-2022 End: 12-06-[address] [place] SOLIS Facility: Start: 09-12-2022 End: 09-12-2022 ambulatory DO Rachael Canela Work Phone: [facility] Work Phone: Start: 09-12-2022 End: 09-12-2022 Patient encounter procedure DO Rachael Canela Work Phone: [facility] Start: 07-02-2022 Refill Cheyanne nielson APRN.PAINT PREPPER Work Phone: Cardiology Comment on above: Refill Request Start: 06-02-2022 Refill Andres marin MD Work Phone: Cardiology Comment on above: Refill Request Start: 11-19-2014 End: 12-02-2014 Patient encounter status Andres Boyd MD Work Phone: [facility] Work Phone: Procedures Date Procedure Procedure Detail Performing Clinician Start: 07-04-2025 Comprehensive metabo lic panel Rachael Canela DO Work Phone: Start: 07-04-2025 Lipid panel Rachael villareal DO Work Phone: Start: 07-04-2025 Adult depression scr eening assessment Rachael Canela DO Work Phone: Start: 03-25-2025 Ecg routine ecg w/le ast 12 lds i&r only Vishalisa Mae CREDIT CARD CONTROL CLERK.PAINT PREPPER Work Phone: Start: 12-05-2024 Adult depression scr eening assessment Rachael Canela DO Work Phone: Start: 12-05-2024 Lipid 1996 panel - S migel or Plasma Vishalisa Mae CREDIT CARD CONTROL CLERK.PAINT PREPPER Work Phone: Start: 12-03-2024 Adult depression scr eening assessment Rachael Canela DO Work Phone: Start: 09-11-2024 Ecg routine ecg w/le ast 12 lds i&r only [facility] Provider Start: 08-08-2024 Adult depression scr eening assessment Rachael Canela DO Work Phone: Start: 05-29-2024 Soheila Rodriguez PT Start: 12-27-2023 Ecg routine ecg w/le ast 12 lds i&r only Andres Boyd MD Work Phone: Start: 12-20-2023 End: 12-20-2023 Screening mammography of bilateral breasts DO Rachael Canela Work [...] 05-30-2023 Arthrocentesis aspir &/inj major jt/bursa w/o Nicholas Hines DO Work Phone: Start: 05-30-2023 [...] Screening for malign ant neoplasm of colon [facility] Start: 12-05-2029 Lipid panel Lipid Screening [facility] Start: 03-25-2028 Diabetes Screening Diabetes Screenin [facility] Start: 12-27-2027 Lipid 1996 panel - S migel or Plasma Lipid Screening [facility] Start: 12-27-2027 Lipid panel Lipid Screening [facility] Start: 12-27-2027 LIPID SCREEN LIPID SCREEN [facility] Start: 12-05-2027 Diabetes Screening Diabetes Screenin [facility] Start: 08-08-2027 Diabetes Screening Diabetes Screenin [facility] Start: 07-17-2027 DTaP,Tdap and Td Vac cines (2 - Td or Tdap) DTaP,Tdap and Td Vaccines (2 - Td or Tdap) [facility] Start: 07-17-2027 Urine microalbumin profile DTa P,Tdap,Td Vaccine (2 - Td or Tdap) [facility] Start: 01-16-2027 Diabetes Screening Diabetes Screenin [facility] Start: 12-27-2026 Diabetes Screening Diabetes Screenin [facility] Start: 07-04-2026 Adult BMI Screening Adult BMI Screen ing [facility] Start: 07-04-2026 Depression Screening Depression Scre ening [facility] Start: 07-04-2026 Fall Risk Screening Fall Risk Screen ing [facility] Start: 07-04-2026 Tobacco Screening Tobacco Screening [facility] Start: 06-29-2026 LIPID SCREEN LIPID SCREEN [facility] Start: 06-27-2026 Diabetes Screening Diabetes Screenin g [facility] Start: 03-17-2026 Screening for malign ant neoplasm of breast Mammogram Screening [facility] Start: 12-27-2025 DIABETES SCREEN DIABETES SCREEN [facility] Start: 12-05-2025 Adult BMI Screening Adult BMI Screen ing [facility] Start: 12-05-2025 Depression Screening Depression Scre ening [facility] Start: 12-05-2025 Fall Risk Screening Fall Risk Screen ing [facility] Start: 12-05-2025 Tobacco Screening Tobacco Screening [facility] Start: 12-04-2025 End: 12-04-2025 Patient encounter procedure 12/04/2025 11:00 AM EST Office Visit [facility] [address] [place] [address] [facility] Start: 12-03-2025 Adult BMI Screening Adult BMI Screen ing [facility] Start: 12-03-2025 Depression Screening Depression Scre ening [facility] Start: 12-03-2025 Fall Risk Screening Fall Risk Screen ing [facility] Start: 12-03-2025 Medicare Annual Well ness Visit Medicare Annual Wellness Visit [facility] Start: 09-17-2025 End: 09-17-2025 Patient encounter procedure Cardiology Comment on above: Nonrheumatic tricusp id valve regurgitation [I36.1] 6 month follow up Start: 09-12-2025 End: 09-12-2025 Patient encounter procedure 09/12/2025 1:30 PM EST Office Visit Cardiology [address] [place] [address] Andres Boyd MD [address] [place] [id number] 1 yr with ms Cardiology Comment on above: 1 yr with me Start: 09-11-2025 BP Controlled (<130/80) BP Controlle d (<130/80) [facility] Start: 09-11-2025 End: 05-27-2026 Echocardiography ECHO Cardiology Routine Nonrheumatic tricuspid valve regurgitation Expected: 09/11/2025, Expires: 03/25/2026 [facility] Work Phone: Comment on above: Expected: 09/11/2025 , Expires: 03/25/2026 Start: 08-08-2025 Adult BMI Screening Adult BMI Screen ing [facility] Start: 08-08-2025 Depression Screening Depression Scre ening [facility] Start: 08-08-2025 Fall Risk Screening Fall Risk Screen ing [facility] Start: 08-08-2025 Tobacco Screening Tobacco Screening [facility] Start: 06-30-2025 COVID-19 Vaccine ( season) COVID-19 Vaccine () [facility] Start: 06-30-2025 Influenza vaccination Influenza Vacc ine [facility] Start: 05-29-2025 Adult BMI Screening Adult BMI Screen ing [facility] Start: 05-29-2025 Tobacco Screening Tobacco Screening [facility] Start: 03-25-2025 End: 06-24-2025 Basic metabolic 2000 panel - Serum or Plasma [facility] Comment on above: Expected: 03/25/2025 , Expires: 06/24/2025 Start: 03-25-2025 End: 06-24-2025 Magnesium [Mass/volume] in Serum or Plasma [facility] Comment on above: Expected: 03/25/2025 , Expires: 06/24/2025 Start: 03-25-2025 End: 03-25-2025 Patient encounter procedure 03/25/2025 1:30 PM EDT Office Visit Cardiology [address] [place], [place] [id number] Nitza Mae, CREDIT CARD CONTROL CLERK.PAINT PREPPER [address] [place] [address] Return in about 6 months (around 03/11/2025). Cardiology Comment on above: Return in about 6 mo nths (around 03/11/2025). Start: 02-27-2025 BP Controlled (<130/80) BP Controlle d (<130/80) [facility] Start: 02-08-2025 Covid-19 Vaccine (8 - 2024-25 season) Covid-19 Vaccine ( season) [facility] Start: 12-27-2024 BP Controlled (<130/80) BP Controlle d (<130/80) [facility] Start: 12-20-2024 Screening for malign ant neoplasm of breast [facility] Start: 12-05-2024 End: 12-05-2025 DBT Breast - bilateral screening Mammography screening bilateral with CAD Imaging Routine Encounter for screening mammogram for malignant neoplasm of breast Expected: 12/05/2024, Expires: 12/05/2025 [facility] Work Phone: Comment on above: Expected: 12/05/2024 , Expires: 12/05/2025 Start: 12-05-2024 End: 12-05-2024 Patient encounter procedure 12/05/2024 1:00 PM EST [facility] [address] [place] [address] Rachael Canela, [address] [place] [address] [facility] Start: 12-03-2024 End: 12-03-2024 Patient encounter procedure 12/03/2024 2:00 PM EST Office Visit [facility] [address] [place] [address] [facility] Start: 11-28-2024 Depression Screening Depression Scre [facility] Start: 11-28-2024 Fall Risk Screening Fall Risk Screen ing [facility] Start: 11-28-2024 Medicare Annual Well ness Visit Medicare Annual Wellness Visit [facility] Start: 11-10-2024 Adult BMI Screening Adult BMI Screen ing [facility] Start: 11-10-2024 Depression Screening Depression Scre ening [facility] Start: 11-10-2024 Fall Risk Screening Fall Risk Screen ing [facility] Start: 11-10-2024 Tobacco Screening Tobacco Screening [facility] Start: 10-30-2024 Advance Directive Discussion Advance Directive Discussion [facility] Start: 09-27-2024 Adult BMI Screening Adult BMI Screen ing [facility] [email or web address] [facility] Start: 09-27-2024 Depression Screening Depression Scre ening [facility] [email or web address] [facility] Start: 09-27-2024 Fall Risk Screening Fall Risk Screen ing [facility] [email or web address] [facility] Start: 09-27-2024 Tobacco Screening Tobacco Screening [facility] [email or web address] [facility] Start: 09-11-2024 End: 09-11-2024 Patient encounter procedure [...] heart failure (HCC) Expected: 08/30/2024, Expires: 11/29/2024 [facility] Work Phone: Comment on above: Expected: 08/30/2024 , Expires: 11/29/2024 Start: 08-30-2024 End: 02-27-2025 Echocardiography ECHO Cardiology Routine S/P AVR (aortic valve replacement) and aortoplasty SVT (supraventricular tachycardia) (HCC) Chronic diastolic heart failure (HCC) PVC (premature ventricular contraction) Expected: 08/30/2024, Expires: 02/27/2025 [facility] Comment on above: Expected: 08/30/2024 , Expires: 02/27/2025 Start: 08-30-2024 End: 11-29-2024 Natriuretic peptide.B prohormone N-Terminal [Mass/volume] in Serum or Plasma [facility] Lab Routine S/P AVR (aortic valve replacement) and aortoplasty SVT (supraventricular tachycardia) (HCC) Chronic diastolic heart failure (HCC) Expected: 08/30/2024, Expires: 11/29/2024 [facility] Comment on above: Expected: 08/30/2024 , Expires: 11/29/2024 Start: 08-30-2024 End: 08-30-2024 ambulatory 08/30/2024 7:00 AM EDT Treatment [facility] [address] [place] [id number] Vandana Rodriguez, PT [facility] Start: [...] Vaccine ( season) COVID-19 Vaccine ( season) [facility] Start: 06-30-2024 Covid-19 Vaccine ( season) Covid-19 Vaccine ( season) [facility] Start: 06-30-2024 Influenza vaccination [facility] Start: 06-29-2024 DIABETES SCREEN DIABETES SCREEN [facility] Start: 05-29-2024 End: 05-29-2024 Admission to same day surgery center 05/29/2024 10:00 AM EDT - 05/29/2024 11:00 AM EDT Surgery [facility] - Endoscopy [address] [place] [phone] Rachael Canela, DO [address] [place] [address] COLONOSCOPY DIAGNOSTIC / SCREENING [04576 (CPT )] [facility] Comment on above: COLONOSCOPY DIAGNOST IC / SCREENING [05682 (CPT )] Start: 05-29-2024 End: 05-29-2024 Colonoscopy flx dx w/collj spec when pfrmd COLONOSCOPY DIAGNOSTIC / SCREENING Screen for colon cancer 05/29/2024 10:00 AM EDT [facility] Start: 05-29-2024 Subsequent hospital visit by physician 05/29/2024 10:00 AM EDT Hospital Encounter [facility] [address] [place] [id number] Rachael Canela, DO [address] [place] [address] [facility] Start: 05-28-2024 End: 05-28-2024 ambulatory 05/28/2024 3:50 PM EDT Support Visit [facility] - Pre Admit [address] [place] [id number] [facility] - Pre Admit Start: 01-17-2024 End: 04-17-2024 Basic metabolic 2000 panel - Serum or Plasma BASIC METABOLIC PNL Lab Routine Expected: 01/17/2024, Expires: 04/17/2024 [facility] Work Phone: Comment on above: Expected: 01/17/2024 , Expires: 04/17/2024 Start: 01-13-2024 Covid-19 Vaccine () Covid-19 Vaccine () [facility] Start: 12-28-2023 End: 06-27-2024 Echocardiography ECHO Cardiology Routine SVT (supraventricular tachycardia) (HCC) Expected: 12/28/2023, Expires: 06/27/2024 [facility] Work Phone: Comment on above: Expected: 12/28/2023 , Expires: 06/27/2024 Start: 11-28-2023 End: 11-28-2024 DBT Breast - bilateral screening Mammography screening bilateral with CAD Imaging Routine Encounter for screening mammogram for malignant neoplasm of breast Expected: 11/28/2023, Expires: 11/28/2024 [facility] Comment on above: Expected: 11/28/2023 , Expires: 11/28/2024 Start: 11-28-2023 End: 01-30-2025 DXA Skeletal system Views for bone density Dexa scan central skeletal Imaging Routine Postmenopausal status Screening for osteoporosis Expected: 11/28/2023, Expires: 11/28/2024 [facility] Comment on above: Expected: 11/28/2023 , Expires: 11/28/2024 Start: 11-23-2023 End: 11-23-2023 Patient encounter procedure 11/23/2023 11:00 AM EST Office Visit [facility] Medicine [address] [place] [address] [facility] Internal Medicine - Family [facility] Start: 11-10-2023 End: 11-10-2023 Patient encounter procedure 11/10/2023 9:20 AM EST Office Visit [facility] Internal Medicine - Family [facility] [address] [place] [address] Rachael Canela DO [address] [place] [address] [facility] Internal [facility] Family [facility] Start: 10-30-2023 Advance Directive Discussion Advance Directive Discussion [facility] Start: 10-30-2023 Behavioral Health Screening Behavioral Health Screening [facility] Start: 10-30-2023 Depression Assessment Depression Ass essment [facility] Start: 06-30-2023 Covid-19 Vaccine ( season) Covid-19 Vaccine ( season) [facility] Start: 06-30-2023 Influenza vaccination C [facility] Start: 06-27-2023 End: 08-27-2023 Comprehensive metabolic 2000 panel - Serum or Plasma [facility] Work Phone: Comment on above: Expected: 06/27/2023 , Expires: 08/27/2023 Start: 12-17-2022 COVID-19 VACCINE (6 - Pfizer series) COVID-19 VACCINE (6 - Pfizer series) [facility] Start: 10-30-2022 ADVANCE DIRECTIVE DISCUSSION ADVANCE DIRECTIVE DISCUSSION [facility] Start: 10-30-2022 DEPRESSION ASSESSMENT DEPRESSION ASS ESSMENT [facility] Start: 06-30-2022 Influenza vaccination INFLUENZA (#1) [facility] Start: 04-14-2022 COVID-19 VACCINE (5 - Booster for Pfizer series) COVID-19 VACCINE (5 - Booster for Pfizer series) [facility] Start: 12-05-2021 COVID-19 VACCINE (4 - Booster for Pfizer series) COVID-19 VACCINE (4 - Booster for Pfizer series) [facility] Start: 10-30-2021 ADVANCE DIRECTIVE DISCUSSION ADVANCE DIRECTIVE DISCUSSION [facility] Start: 12-17-2019 [facility] DEPRESSION SCREENING [facility] Start: 08-27-2019 Administration of varicella zoster vaccine Zoster (Shingles) Vaccine (3 of 3) [facility] Start: 08-27-2019 Shingrix Vaccine (3 of 3) Rivera grix Vaccine (3 of 3) [facility] Start: 06-23-2017 Pneumococcal Vaccine : 50+ (2 of 2 - PCV) Pneumococcal Vaccine: 50+ (2 of 2 - PCV) [facility] Start: 06-23-2017 Pneumococcal Vaccine : 65+ (2 - PCV) Pneumococcal Vaccine: 65+ (2 - PCV) [facility] Start: 06-23-2017 Pneumococcal Vaccine : 65+ (2 of 2 - PCV) Pneumococcal Vaccine: 65+ (2 of 2 - PCV) [facility] Start: 06-23-2017 Pneumococcal Vaccine : 65+ Years (2 of 2 - PCV) Pneumococcal Vaccine: 65+ Years (2 of 2 - PCV) [facility] Start: 11-03-2015 PNEUMOCOCCAL: 65+ (1 - PCV) PNEUMOCOCCAL: 65+ (1 - PCV) [facility] Start: 11-03-2015 PNEUMOCOCCAL: 65+ (2 - PCV) PNEUMOCOCCAL: 65+ (2 - PCV) [facility] Start: 2015 BONE DENSITY BONE DENSITY [facility] Start: 2015 Bone Density Screening Bone Density Screening [facility] Start: 12-01-2014 SHINGRIX VACCINE (2 of 3) RIVERA GRIX VACCINE (2 of 3) [facility] Start: 2010 RSV Vaccine (1 - 1-d ose 60+ series) RSV Vaccine (1 - 1-dose 60+ series) [facility] Start: 1995 COLOGUARD (FIT-DNA) COLOGUARD (FIT-D NA) [facility] Start: 1995 Colonoscopy COLONOSCOPY [facility] Start: 1995 COLORECTAL CANCER SCREENING COLORECTAL CANCER SCREENING [facility] Start: [address] COLONOGRAPHY [facility] Start: 1995 FECAL OCCULT BLOOD FECAL OCCULT BLOO D [facility] Start: 1995 Screening for malign ant neoplasm of colon [facility] Start: 1995 SIGMOIDOSCOPY SIGMOIDOSCOPY [facility] Start: 1990 Mammography [facility] Start: 1969 Urine microalbumin profile DTAP,TDAP ,TD (1 - Tdap) [facility] Start: 1968 ANNUAL PCP TEAM CONTROL SYSTEM MANAGER CAROL DISEASE VISIT ANNUAL PCP TEAM CHRONIC DISEASE VISIT [facility] Start: 1968 Anxiety Screening Anxiety Screening [facility] Start: 1968 BP CONTROLLED (<130/80) BP CONTROLLE D (<130/80) [facility] Start: 1968 Depression Screening Depression Scre ening [facility] Start: 1968 HEPATITIS C SCREENING HEPATITIS C [facility] Start: 1968 Hepatitis C screening Hepatitis C [facility] Start: 1950 Medicare Annual Well ness Visit Medicare Annual Wellness Visit [employer] Start: 1950 Screening for malign ant neoplasm of colon [facility] End: 08-08-2025 Basic metabolic 2000 panel - Serum or Plasma Basic Metabolic Panel Lab Routine Petechiae or ecchymoses 1 Occurrences starting 08/08/2024 until 08/08/2025 [employer] Work Phone: Comment on above: 1 Occurrences starti ng 08/08/2024 until 08/08/2025 End: 08-08-2025 CBC W Auto Differential panel - Blood CBC auto differential Lab Routine Petechiae or ecchymoses 1 Occurrences starting 08/08/2024 until 08/08/2025 [employer] Comment on above: 1 Occurrences starti ng 08/08/2024 until 08/08/2025 End: 11-28-2024 Colonoscopy Colonoscopy GI Routine Colon cancer screening 1 Occurrences starting 11/28/2023 until 11/28/2024 [employer] Work Phone: Comment on above: 1 Occurrences starti ng 11/28/2023 until 11/28/2024 Colonoscopy flx dx w /collj spec when pfrmd COLONOSCOPY DIAGNOSTIC / SCREENING Colon cancer screening Other [facility] End: 06-27-2024 ECG COMPLETE ECG COMPLETE ECG Routine S/P AVR (aortic valve replacement) 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 APC (atrial premature contractions) 1 Occurrences starting 06/27/2023 until 06/27/2024 [facility] Work Phone: Comment on above: 1 Occurrences starti ng 06/27/2023 until 06/27/2024 ECG COMPLETE ECG COMPLETE ECG 06/27/2023 8:52 AM EDT [facility] ECG COMPLETE ECG COMPLETE ECG 12/27/2023 9:42 AM EST [facility] ECG COMPLETE [facility] Work Phone: Comment on above: Ordered: 09/11/2024 ECG COMPLETE ECG COMPLETE ECG Routine Premature atrial complexes 03/25/2025 1:54 PM EDT [facility] OUTSIDE VENDOR CARDI AC OUTPATIENT EXTENDED RHYTHM RECORDING (WITHOUT TELEMETRY) OUTSIDE VENDOR CARDIAC OUTPATIENT EXTENDED RHYTHM RECORDING (WITHOUT TELEMETRY) Holter Routine S/P AVR (aortic valve replacement) and aortoplasty Nonrheumatic tricuspid valve regurgitation PVC (premature ventricular contraction) Ordered: 12/27/2023 [facility] Work Phone: Comment on above: Ordered: 12/27/2023 End: 08-08-2025 Thyroid profile includes TSH FT4 Thyroid profile includes TSH FT4 Lab Routine Hypothyroidism, unspecified type 1 Occurrences starting 08/08/2024 until 08/08/2025 [facility] Comment on above: 1 Occurrences starti ng 08/08/2024 until 08/08/2025 [facility] Immunizations Immunization Date Immunization Notes Care Provider Karly huffman 09-04-2024 influenza, high dose seasonal, preservative-free Rachael Canela DO Work Phone: [employer] 09-04-2024 influenza virus vacc ine, unspecified formulation Fanny Kinsey [facility] 10-25-2023 RSV vaccine, preF A- preF B, recombinant [place] SOLIS [facility] 10-25-2023 RSV, bivalent, prote in subunit RSVpreF, diluent reconstituted, 0.5 mL, PF Rachael Chairezs DO Work Phone: [facility] [email or web address] [facility] 09-26-2023 influenza virus vacc ine, unspecified formulation Rdaha Orzech [facility] 09-26-2023 Influenza, High-dose , Quadrivalent Rachael Chairezs DO Work Phone: [facility] 08-31-2022 Influenza, High-dose , Quadrivalent Rachael Hernandezhakennedy DO Work Phone: [facility] [email or web address] [facility] 08-31-2022 influenza virus vacc ine, unspecified formulation Andres Boyd MD Work Phone: [facility] 08-16-2022 SARS-CoV-2 (COVID-19 ) [id number] Radha Orzech [facility] 02-17-2022 SARS-CoV-2 mRNA (oxohbmugune-smhc-lmuqql e) vaccine Radha Orzech [facility] 09-02-2021 influenza virus vacc ine, unspecified formulation Radha Orzech [facility] 09-02-2021 Influenza, High-dose , Quadrivalent Rachael Canela DO Work Phone: [facility] [email or web address] [facility] 08-04-2021 SARS-CoV-2 (COVID-19 ) mRNA [id number] vax Radha Orzech [facility] 12-17-2020 SARS-CoV-2 (COVID-19 ) mRNA [id number] vax Radha Orzech [facility] Comment on above: Result Comment: 2023: [id number] 11-26-2020 SARS-CoV-2 (COVID-19 ) mRNA [id number] vax Radha Orzech [facility] Comment on above: Result Comment: 2023: [id number] 07-30-2020 influenza virus vacc ine, unspecified formulation Radha Orzech [facility] 07-30-2020 influenza, injectabl e, quadrivalent, preservative free Rachael Yuhas DO Work Phone: [facility] 07-05-2020 influenza virus vacc ine, unspecified formulation Radha Orzech [facility] 07-05-2020 influenza, high dose seasonal, preservative-free Rachael Yuhas DO Work Phone: [facility] [email or web address] [facility] 08-21-2019 influenza virus vacc ine, unspecified formulation Radha Orzech [facility] 08-21-2019 influenza, high dose seasonal, preservative-free Rachael Yuhas DO Work Phone: [facility] 07-02-2019 zoster vaccine, live Rachael Hernandez has DO Work Phone: [facility] 07-02-2019 zoster vaccine, unspecified formulation Rachael Yuhas DO Work Phone: [facility] 04-29-2019 zoster vaccine recombinant Rachael Yuhas DO Work Phone: [facility] 10-01-2018 influenza virus vacc ine, unspecified formulation Radha Orzech [facility] 10-01-2018 influenza, seasonal, injectable, preservative free Rachael Hernandezhas DO Work Phone: [facility] 07-17-2017 tetanus toxoid, redu andrea diphtheria toxoid, and acellular pertussis vaccine, adsorbed Rachael Yuhas DO Work Phone: [facility] 01-11-2017 influenza virus vacc ine, unspecified formulation Radha Orzech [facility] 01-11-2017 influenza, seasonal, injectable Rachael Hernandezhas DO Work Phone: [facility] 06-23-2016 pneumococcal polysaccharide vaccine, 23 valent Rachael Chairezs DO Work Phone: [facility] 09-29-2015 influenza virus vacc ine, unspecified formulation Radha Orzech [facility] 09-29-2015 seasonal influenza, intradermal, preservative free Rachael Chairezs DO Work Phone: [facility] 11-03-2014 pneumococcal polysaccharide vaccine, 23 valent Andres Boyd MD Work Phone: [facility] 10-06-2014 zoster vaccine, live Andres Boyd MD Work Phone: [facility] 09-24-2014 influenza virus vacc ine, unspecified formulation Radha Orzech [facility] 09-24-2014 influenza, seasonal, injectable, preservative free Rachael Chairezs DO Work Phone: [facility] 08-04-2014 influenza virus vacc ine, unspecified formulation Radha Orzech [facility] 08-04-2014 influenza, high dose seasonal, preservative-free Andres Boyd MD Work Phone: [facility] 07-30-2014 pneumococcal polysaccharide vaccine, 23 valent Rachael Canela DO Work Phone: [facility] 03-20-2001 hepatitis B vaccine, adult dosage Rachael Canela DO Work Phone: [facility] 10-19-2000 hepatitis B vaccine, adult dosage Rachael Canela DO Work Phone: [facility] 09-19-2000 hepatitis B vaccine, adult dosage Rachael Canela DO Work Phone: [facility] Payers Date Payer Category Payer Self-pay [id number] 2023 Commercial Managed C are - POS [employer] [id number] 2020 Private Health Insurance [employer] A ETNA MEDICARE SUPPLEMENT [id number] 2020-Present [phone] [address] [address] [place] [address] Indemnity [id number] 2020 Private Health Insurance [id number] 2020 Private Health Insurance I [id number] 2015 Medicare MEDICARE MEDICAR E A AND B [id number] 2015-Present [phone] [address] [address] [place] [address] Medicare [id number] 2015 Medicare [id number] 1959 Medicare [id number] 1959 Private Health Insurance [facility] [id number] 1950 Unknown [id number] 1950 Unknown [id number] 1950 Unknown [id number] 1950 Unknown [id number] [id number] 1950 Unknown [id number] [id number] 1950 Unknown [id number] [id number] 1950 Unknown [id number] [id number] 1950 Unknown [id number] [id number]. 2.1259 1950 Unknown [id number] 2.16.840.1.505911.3.579. 2.1259 1950 Unknown [id number] 2.16.840.1.985984.3.579. 2.1259 1950 Unknown [id number] 2.16.840.1.360165.3.579. 2.1286 1950 Unknown [id number] 2.16.840.1.606757.3.579. 2.1286 1950 Unknown [id number] 2.16.840.1.317639.3.579. 2.727 1950 Unknown [id number] 2.16.840.1.628406.3.579. 2.727 1950 Unknown [id number] 2.16.840.1.188051.3.579. 2.727 1950 Unknown [id number] 2.16.840.1.912782.3.579. 2.727 1950 Unknown [id number] 2.16.840.1.545547.3.579. 2.1286 1950 Unknown [id number] 2.16.840.1.753613.3.579. 2.1286 1950 Unknown [id number] 2.16.840.1.754982.3.579. 2.1286 1950 Unknown [id number] 2.16.840.1.472060.3.579. 2.1286 [facility] [id number] Unknown [facility] [id number] Unknown [id number] 2.16.840.1.590656.3.579. 2.531 Social History Date Type Detail Facility Start: 11-17-2011 End: 01-30-2023 Tobacco smoking status NHIS Never smoked tobacco [facility] Work Phone: Start: 11-17-2011 End: 01-30-2023 Tobacco use and exposure Smokeless tobacco non-user [facility] Work Phone: Start: 12-27-2021 End: 07-04-2025 Alcohol intake Current drinker of alcohol (finding) [facility] Start: 11-17-2011 History SDOH Alcohol Comment social [facility] Start: 1950 Sex Assigned At Female [facility] Start: 06-17-2022 End: 06-27-2022 Exposure to SARS-CoV-2 (event) Not sure [facility] Work Phone: Start: 12-27-2022 End: 11-28-2023 Sex Assigned At Female [facility] Start: 12-27-2022 End: 11-28-2023 History of Social function [facility] Adult Depression Screening Assessment 0 [facility] Start: 12-21-2020 Gender identity Identifies as female gender (finding) [facility] Start: 12-21-2020 Sexual orientation Heterosexual (finding) [facility] Tobacco smoking stat [facility] Tobacco smoking consumption unknown [facility] Start: 1950 Sex assigned at Not on file [facility] Has the [employer], or [employer] threatened to shut off services in your home in past 12Mo No [facility] [email or web address] [facility] Do you belong to any clubs or organizations such as christianity groups, unions, fraternal or athletic groups, or school groups? Yes [facility] Are you now , , , , never or living with a partner? [facility] How often to you hav e a drink containing alcohol? 2-3 time sa week [facility] How many standard dr inks containing alcohol do you have on a typical day? 1 or [address] [facility] How often do you hav e 6 or more drinks on 1 occasion? Never [facility] [email or web address] [facility] Do you feel stress - tense, restless, nervous, or anxious, or unable to sleep at night because your mind is troubled all the time - these days [OSQ] Not at all [facility] Start: 09-27-2023 Alcohol Comment socially [facility] Start: 06-04-2015 Sex Female (finding) [facility] Sexual Orientation [facility] Medical Equipment Procedure Code Equipment Code Equipment Origin al Text Equipment Identifier Dates Graft Cv 30cm 30 mm 2 Vlr Wvn - [id number] Start: 12-01-2014 [place] Cv 4x.5in Thk1.65mm Ptfe - [id number] Start: 12-01-2014 Comment on above: Description: pledget s on suture [place] Cv 6x6in Thk1.65mm Ptfe - [id number] Start: 12-01-2014 Valve Aort 23mm C-E Prm Bprth - [id number] Start: 12-01-2014 Functional Status Date Assessment Result Facility 11-11-2024 Functional Status N/A [facility] 06-18-2024 Functional Status N/A [facility] 11-28-2023 Functional Status N/A [facility] 12-09-2022 Functional Status N/A [facility] 04-28-2015 Are you deaf, or do you have serious difficulty hearing No 04/28/2015 10:04 AM Lilliana Maxwell CNP No [facility] 04-28-2015 Are you blind, or do you have serious difficulty seeing, even when wearing glasses Yes 04/28/2015 10:04 AM Lilliana Maxwell CNP Yes [facility] 04-28-2015 Do you have serious difficulty walking or climbing stairs No 04/28/2015 10:04 AM Lilliana Maxwell CNP No [facility] 04-28-2015 Do you have difficul ty dressing or bathing No 04/28/2015 10:04 AM Lilliana Maxwell CNP No [facility] 04-28-2015 Because of a physica l, mental, or emotional condition, do you have difficulty doing errands alone such as visiting a physician's office or shopping Yes 04/28/2015 10:04 AM Lilliana Maxwell CNP Yes [facility] Mental Status Date Assessment Result Facility 04-28-2015 Because of a physica l, mental, or emotional condition, do you have serious difficulty concentrating, remembering, or making decisions No 04/28/2015 10:04 AM Lilliana Maxwell CNP No [facility] Clinical Notes 12-24-2014 to 07-04-2025 Rachael Kaufman Rola, DO - 07/04/2025 9:30 AM EDTTelephone Encounter - Fanny Kinsey, [facility] - 03/31/2025 10:40 AM EDTTelephone Encounter - Fanny Kinsey, [facility] - 03/31/2025 10:40 AM EDTPatient Instructions Note Date & Type Note Facility 07-04-2025 History of Present illness Narrative IM PROGRESS NOTE Patient - Lesvia Ramos Age - 74 y.o. - 1950 ASSESSMENT & PLAN 1. Essential hypertension (Primary) -goals of treatment reviewed with the patient. -office readings are excellent, and home readings are acceptable as well -no change to current treatment 2. Hypothyroidism, unspecified type -currently on levothyroxine 75 mcg daily -repeat thyroid function testing to assess efficacy of current replacement therapy and adjust as needed - Thyroid profile includes TSH FT4; Future - Thyroid profile includes TSH FT4 3. Hyperlipidemia, unspecified hyperlipidemia type -currently taking atorvastatin 10 mg daily -repeat lipid panel to assess efficacy of current treatment and adjust as needed - Lipid profile; Future - Comprehensive metabolic panel; Future - Comprehensive metabolic panel - Lipid profile Subjective CARDIOVASCULAR FOLLOW-UP This is a follow up of a pre-existing problem. Blood pressures are being checked outside the office. Frequency: occasional Readings have been normal. BP readings outside the office range from 110 - 119 mmHg systolic and 60 - 69 mmHg diastolic. The 10-year ASCVD risk score (Kehinde DK, et al., 2019) is: 15.7% Values used to calculate the score: Age: 74 years Sex: Female Is Non- : No Diabetic: No Tobacco smoker: No Systolic Blood Pressure: 118 mmHg Is BP treated: Yes HDL Cholesterol: 78 mg/dL Total Cholesterol: 154 mg/dL Patient reports following dosing instructions Physical activity: Work around her home, and occasional walking Dietary efforts show low fat/low cholesterol diet. CV symptoms review was negative for rapid or irregular heart rate, palpitations, syncope A review of systems was negative. Exam BP 118/80 (BP Site: Left Arm, BP Postition: Sitting, BP CUFF SIZE: S (7-9 inches)) Pulse 62 Temp 36.4 C (97.5 F) (Oral) Resp 20 Ht 161.3 cm (5' 3.5 ) Wt 58.5 kg (129 lb) SpO2 100% BMI 22.49 kg/m Physical Exam Vitals reviewed. Constitutional: General: She is not in acute distress. Appearance: She is normal weight. She is not toxic-appearing. HENT: Head: Normocephalic. Right Ear: External ear normal. Left Ear: External ear normal. Nose: Nose normal. Mouth/Throat: Mouth: Mucous membranes are moist. Eyes: General: No scleral icterus. Neck: Vascular: No carotid bruit. Cardiovascular: Rate and Rhythm: Normal rate and regular rhythm. Pulses: Normal pulses. Radial pulses are 2+ on the right side and 2+ on the left side. Heart sounds: Murmur (3/6 systolic murmur 2nd right interspace and left [...] mg tablet, TAKE 1 TABLET BY MOUTH DAILY, Disp: 90 tablet, Rfl: 1 cholecalciferol 1,000 units tablet, Take 1 tablet (1,000 Units total) by mouth in the morning., Disp: , Rfl: latanoprost (XALATAN) 0.005 % ophthalmic solution, , Disp: , Rfl: levothyroxine (SYNTHROID, LEVOTHROID) 75 MCG tablet, TAKE 1 TABLET BY MOUTH ONCE DAILY, Disp: 90 tablet, Rfl: 1 magnesium oxide 250 mg tablet, Take 1 tablet (250 mg total) by mouth in the morning., Disp: , Rfl: metoprolol succinate XL (TOPROL XL) 50 mg 24 hr tablet, Take 1 tablet (50 mg total) by mouth in the morning and 1 tablet (50 mg total) before bedtime., Disp: , Rfl: spironolactone (ALDACTONE) 25 mg tablet, Take 0.5 tablets (12.5 mg total) by mouth in the morning., Disp: , Rfl: Lab Results No visits with results within 1 Month(s) from this visit. Latest known visit with results is: Hospital Outpatient Visit on 12/05/2024 Component Date Value Ref Range Status Cholesterol 12/05/2024 154 150 - 200 mg/dL Final Triglycerides 12/05/2024 75 27 - 150 mg/dL Final HDL Cholesterol 12/05/2024 78 >39 mg/dL Final VLDL 12/05/2024 15 0 - 30 mg/dL Final LDL (calc) 12/05/2024 61 <130 mg/dL Final Cholesterol:HDL Ratio 12/05/2024 2.0 1.0 - 5.0 Final Sodium 12/05/2024 141 134 - 146 mmol/L Final Potassium, Bld 12/05/2024 4.0 3.5 - 5.0 mmol/L Final Chloride 12/05/2024 101 98 - 109 mmol/L Final CO2 12/05/2024 33 (H) 22 - 32 mmol/L Final Anion gap 12/05/2024 7 5 - 15 mmol/L Final BUN 12/05/2024 23 5 - 27 mg/dL Final Creatinine 12/05/2024 0.89 0.40 - 1.00 mg/dL Final Glucose 12/05/2024 99 65 - 99 mg/dL Final Calcium 12/05/2024 9.7 8.5 - 10.5 mg/dL Final Total Protein 12/05/2024 7.1 6.0 - 8.0 g/dL Final Albumin 12/05/2024 4.4 3.2 - 5.3 g/dL Final Alkaline Phosphatase 12/05/2024 87 39 - 130 U/L Final AST 12/05/2024 21 0 - 41 U/L Final ALT 12/05/2024 20 0 - 31 U/L Final Total bilirubin 12/05/2024 1.1 0.3 - 1.2 mg/dL Final eGFR (CKD-EPI)non-race dependent 12/05/2024 68 >59 ml/min/1.73sq.m Final Other Testing No results found. Rachael Canela DO., [facility] Office: [phone] documented in this encounter [facility] 06-02-2025 Hospital Discharge instructions Patient Education 06/02/2025 14:31:41 Laser Therapy for [...] are painful or that are stopping you from being able to pee. Tell a health care provider about: Any allergies you have. All medicines you are taking, including vitamins, herbs, eye drops, creams, and hyvs-dwr-xqqrfpw medicines. Any problems you or family members have had with anesthesia. Any bleeding problems you have. Any surgeries you have had. Any medical conditions you have. Whether you are or may be . What are the risks? Your health care provider will talk with you about risks. These may include: Infection. Bleeding. Allergic reactions to medicines. Damage to: ?The part of your body that drains pee (urine) from the bladder (urethra). ?The bladder. ?The tube that connects the bladder to the kidneys (ureter). Urinary tract infection (UTI). Urethral stricture. This is when the urethra is narrowed by scarring. Trouble peeing. Blockage of the kidney. This may be caused by a piece of kidney stone. What happens before the procedure? When to stop eating and drinking Follow instructions from your provider about what you may eat and drink. These may include: 8 hours before the procedure ?Stop eating most foods. Do not eat meat, fried foods, or fatty foods. ?Eat only light foods, such as toast or crackers. ?All liquids are okay except energy drinks and alcohol. 6 hours before the procedure ?Stop eating. ?Drink only clear liquids, such as water, clear fruit juice, black coffee, plain tea, and sports drinks. ?Do not drink energy drinks or alcohol. 2 hours before the procedure ?Stop drinking all liquids. ?You may be allowed to take medicines with small sips of water. If you do not follow your provider's instructions, your procedure may be delayed or canceled. Medicines Ask your provider about: ?Changing or stopping your regular medicines. These include any diabetes medicines or blood thinners you take. ?Taking medicines such as aspirin and ibuprofen. These medicines can thin your blood. Do not take them unless your provider tells you to. ?Taking pwzp-vcg-xczvqta medicines, vitamins, herbs, and supplements. Tests You may have a physical exam before the procedure. You may also have tests done. These may include: ?Imaging tests. ?Blood or pee tests. Surgery safety Ask your provider: ?How your surgery site will be marked. ?What steps will be taken to help prevent infection. These steps may include: ?Removing hair at the surgery site. ?Washing skin with a soap that kills germs. ?Taking antibiotics. General instructions Do not use any products that contain nicotine or tobacco for at least 4 weeks before the procedure. These products include cigarettes, chewing tobacco, and vaping devices, such as e-cigarettes. If you need help quitting, ask your provider. If you will be going home right after the procedure, plan to have a responsible adult: ?Take you home from the hospital or clinic. You will not be allowed to drive. ?Care for you for the time you are told. What happens during the procedure? An IV will be inserted into one of your veins. You will be given: ?A sedative. This helps you relax. ?Anesthesia. This keeps you from feeling pain. It will make you fall asleep for surgery. A tool with a camera on the end (ureteroscope) will be put into your urethra. It will be moved through your bladder to your kidney. It will send pictures to a screen in the operating room. This will show what parts of your kidney need to be treated. A tube will be put through the ureteroscope. It will be moved into your kidney. The laser device will be put into your kidney through the tube. The laser will be used to break up the kidney stones. A tool with a tiny wire basket may be put through the tube into your kidney. This can help remove the small pieces of the kidney stone. A small mesh tube (stent) may be placed to allow your kidney to drain. The tube and ureteroscope will be taken out at the end of the surgery. The procedure may vary among providers and hospitals. What happens after the procedure? Your blood pressure, heart rate, breathing rate, and blood oxygen level will be monitored until you leave the hospital or clinic. If you had a stent placed, it may have a string that will be secured to your skin. This helps your provider remove the stent. You may be given a strainer to collect any stone pieces that you pass in your pee. Your provider may have these tested. This information is not intended to replace advice given to you by your health care provider. Make sure you discuss any questions you have with your health care provider. Document Revised: 06/16/2023 Document Reviewed: 06/16/2023 Virtual 3-D Display for Smartphones Patient Education 2023 Integrated Medical Management. 06/02/2025 14:27:44 ESWL for Kidney Stones ESWL [...] urine. Tell a health care provider about: Any allergies you have. All medicines you are taking, including vitamins, herbs, eye drops, creams, and mbxs-rhy-qrmcsyd medicines. Any problems you or family members have had with anesthetic medicines. Any bleeding problems you have. Any surgeries you have had. Any medical conditions you have. Whether you are or may be . What are the risks? Your health care provider will talk with you about risks. These may include: Infection. Bleeding from the kidney. Bruising of the kidney or skin. Scarring of the kidney. This can lead to: ?Increased blood pressure. ?Poor kidney function. ?Return (recurrence) of kidney stones. Damage to other structures or organs. This may include the liver, colon, spleen, or pancreas. Blockage (obstruction) of the tube that carries urine from the kidney to the bladder (ureter). Failure of the kidney stone to break into fragments. What happens before the procedure? When to stop eating and drinking Follow instructions from your health care provider about what you may eat and drink. These may include: 8 hours before your procedure ?Stop eating most foods. Do not eat meat, fried foods, or fatty foods. ?Eat only light foods, such as toast or crackers. ?All liquids are okay except energy drinks and alcohol. 6 hours before your procedure ?Stop eating. ?Drink only clear liquids, such as water, clear fruit juice, black coffee, plain tea, and sports drinks. ?Do not drink energy drinks or alcohol. 2 hours before your procedure ?Stop drinking all liquids. ?You may be allowed to take medicines with small sips of water. If you do not follow your health care provider's instructions, your procedure may be delayed or canceled. Medicines Ask your health care provider about: Changing or stopping your regular medicines. These include any diabetes medicines or blood thinners you take. Taking medicines such as aspirin and ibuprofen. These medicines can thin your blood. Do not take them unless your health care provider tells you to. Taking yngt-iwt-rnejaqc medicines, vitamins, herbs, and supplements. Tests You may have tests, such as: Blood tests. Urine tests. Imaging tests. This may include a CT scan. Surgery safety Ask your health care provider: How your surgery site will be marked. What steps will be taken to help prevent infection. These steps may include: ?Washing skin with a soap that kills germs. ?Receiving antibiotics. General instructions If you will be going home right after the procedure, plan to have a responsible adult: ?Take you home from the hospital or clinic. You will not be allowed to drive. ?Care for you for the time you are told. What happens during the procedure? An IV will be inserted into one of your veins. You may be given: ?A sedative. This helps you relax. ?Anesthesia. This will: ?Numb certain areas of your body. ?Make you fall asleep for surgery. A water-filled cushion may be placed behind your kidney or on your abdomen. In some cases, you may be placed in a tub of lukewarm water. Your body will be positioned in a way that makes it easier to target the kidney stone. An X-ray or ultrasound exam will be done to locate your stone. Shock waves will be aimed at the stone. If you are awake, you may feel a tapping sensation as the shock waves pass through your body. A small mesh tube (stent) may be placed in your ureter. This will help keep urine flowing from the kidney if the fragments of the stone have been blocking the ureter. The stent will be removed at a later time by your health care provider. The procedure may vary among health care providers and hospitals. What happens after the procedure? Your blood pressure, heart rate, breathing rate, and blood oxygen level will be monitored until you leave the hospital or clinic. You may have an X-ray after the [...] provider. Document Revised: 02/16/2023 Document Reviewed: 02/16/2023 Virtual 3-D Display for Smartphones Patient Education 2023 Integrated Medical Management. Follow Up Care 11/11/2024 13:13:46 With:IRMA RECINOS, India Yang, URMandeep Address: [facility] [address] [place] [address] [phone] When: Unknown [facility] 06-02-2025 Note Patient Education Nephrology Laser Therapy for Kidney Stones Laser therapy [...] are painful or that are stopping you from being able to pee. Tell a health care provider about: ??? Any allergies you have. ??? All medicines you are taking, including vitamins, herbs, eye drops, creams, and nrcr-gmb-qpjggqb medicines. ??? Any problems you or family [...] Allergic reactions to medicines. ??? Damage to: ? The part of your body that drains pee (urine) from the bladder (urethra). ? The bladder. ? The tube that connects the bladder to [...] include: ??? 8 hours before the procedure ? Stop eating most foods. Do not eat meat, fried foods, or fatty foods. ? Eat only light foods, such as toast or crackers. ? All liquids are okay except energy drinks and alcohol. ??? 6 hours before the procedure ? Stop eating. ? Drink only clear liquids, such as water, clear fruit juice, black coffee, plain tea, and sports drinks. ? Do not drink energy drinks or alcohol. ??? 2 hours before the procedure ? Stop drinking all liquids. ? You may be allowed to take medicines with small sips of water. ??? If you do not follow your provider's instructions, your procedure may be delayed or canceled. Medicines ??? Ask your provider about: ? Changing or stopping your regular medicines. These include any diabetes medicines or blood thinners you take. ? Taking medicines such as aspirin and ibuprofen. These medicines can thin your blood. Do not take them unless your provider tells you to. ? Taking aisk-zcv-mywsxhs medicines, vitamins, herbs, and supplements. Tests ??? You may have a physical exam before the procedure. You may also have tests done. These may include: ? Imaging tests. ? Blood or pee tests. Surgery safety ??? Ask your provider: ? How your surgery site will be marked. ? What steps will be taken to help prevent infection. These steps may include: ? Removing hair at the surgery site. ? Washing skin with a soap that kills germs. ? Taking antibiotics. General instructions ??? Do not use any products that contain nicotine or tobacco for at least 4 weeks before the procedure. These products include cigarettes, chewing tobacco, and vaping devices, such as e-cigarettes. If you need help quitting, ask your provider. ??? If you will be going home right after the procedure, plan to have a responsible adult: ? Take you home from the hospital or clinic. You will not be allowed to drive. ? Care for you for the time you are told. What happens during the procedure? An IV will be inserted into one of your veins. ??? You will be given: ? A sedative. This helps you relax. ? Anesthesia. This keeps you from feeling pain. [...] tube. The laser will be used to break up the kidney stones. ??? A tool with [...] and blood oxygen level will be monitored until you leave the hospital or clinic. ??? If you had a stent placed, it may have a string that will be secured to your skin. This helps yo (more content not included)... [facility] 03-31-2025 Miscellaneous Notes Left this message for her on her confidential voice mail documented [facility] this [facility] Telephone encounter Note Left this message for her on her confidential voice mail [facility] Instructions Nitza Mae APRN.JESSIE - 03/25/2025 1:57 PM EDT We discussed [...] coming in today. documented in this encounter [facility] 03-25-2025 Note HNO ID: [id number] Author: NITZA MAE APRN.[employer] Service: ? Author Type: Nurse Practitioner Type: Progress Notes Filed: 03/25/2025 15:12 Note Text: [facility] Department of Cardiovascular Medicine SECTION [...] episode of mild dyspnea while using a fgz-uqyo-vvjrlxaqy push mower, which required slightly more exertion [...] between if symptoms (more content not included)... [facility] 03-25-2025 History of Present illness Narrative Images from the original note were not included. [facility] Department of Cardiovascular Medicine SECTION [...] episode of mild dyspnea while using a xzg-mjet-yxdlpdmqc push mower, which required slightly more exertion [...] history reviewed; unchanged from prior. ASSESSMENT/PLAN: Lesvia Raoms was seen today for CVM follow up. [...] 250 mg by mouth once daily. timolol/dorzolamide/latanop/PF (CGGANJY-QFBVSKRUGC-KQXGUCQ,PF,) 0.5-2-0.005 % drop Use 1 Drop in [...] Comment: Indication for hospital admission: discharged from [facility] on 12/06 after having aortic valve replacement and repair of ascending aorta on 12/01/14. She was staying with family during the recovery period and overall was doing well. READMIT: Transferred from [facility] 12/07/14 after presenting with acute [...] controlled Dispo: DC today. . Lives in [place], [place]. 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 This note was partially generated with [employer] voice recognition software and may contain errors, including spelling, grammar, syntax and misrecognition of what was dictated, that may not be fully corrected. I appreciate the opportunity to participate in this patient's care. Please do not hesitate to call my office if you have any questions. The patient consented to the use of [employer] software for draft documentation of the visit consistent with [facility] s Notice of Privacy Practices. CONTACT INFORMATION: Nitza Mae APRN.CNP Adult Nurse Practitioner Toby and Annia Wade Department of Cardiovascular Medicine [facility] Heart, Vascular, Thoracic [place] [facility] and [facility] Cardiology Consult Team documented in this encounter [facility] 12-23-2024 Telephone encounter Note The following approved medication requests have been transmitted electronically. Requested Prescriptions Signed Prescriptions Disp Refills spironolactone-hctz 25/25 (ALDACTAZIDE) 25-25 mg per tablet 45 tablet 3 Sig: TAKE 1/2 (ONE-HALF) OF A TABLET BY MOUTH DAILY Authorizing Provider: ANDRES BOYD Ordering User: NITZA MAE APRN.CNP [facility] Work Phone: 12-23-2024 Miscellaneous Notes The following approved medication requests have been transmitted electronically. Requested Prescriptions Signed Prescriptions Disp Refills spironolactone-hctz 25/25 (ALDACTAZIDE) 25-25 mg per tablet 45 tablet 3 Sig: TAKE 1/2 (ONE-HALF) OF A TABLET BY MOUTH DAILY Authorizing Provider: ANDRES BOYD Ordering User: NITZA MAE APRN.PAINT PREPPER Received request for refill of the following [...] 0.96 mg/dL Final documented in this encounter [facility] 12-23-2024 Telephone encounter Note Received request for [...] 1.09 (H) 0.58 - 0.96 mg/dL Final [facility] 12-05-2024 History of Present illness Narrative IM [...] Testing No results found. Rachael Canela DO., [facility] Physicians Office: [phone] documented in this encounter [facility] 12-03-2024 History of Present illness Narrative [...] Do you have a durable power of workers compensation attorney?: Yes Cognitive Screening Do you have [...] in Medicare patient Chronic diastolic heart failure ([facility]) 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-induced thrombocytopenia) ([facility]) SVT (supraventricular tachycardia) ([facility]) Encounter for screening mammogram for malignant neoplasm of breast - Mammography screening bilateral with CAD; Future Return in about 1 year (around 12/03/2025). documented in this encounter [facility] 11-11-2024 Hospital Discharge instructions Patient Education 11/11/2024 13:11:28 Kidney Stones, Stgq-ce-Shhv Kidney Stones Kidney stones are rock-like masses [...] Follow these instructions at home: Medicines Take tlwb-iib-gxgsuhd and prescription medicines only as told by [...] provider. Document Revised: 06/09/2023 Document Reviewed: 06/09/2023 Virtual 3-D Display for Smartphones Patient Education 2023 Integrated Medical Management. Follow Up Care 09/04/2024 16:16:48 With:IRMA RECINOS, India Yang, URL Address: [facility] [address] , [place] [address]- [phone] When: Unknown [facility]24 Note Patient Education Urology Kidney Stones [...] these instructions at home: Medicines ??? Take ftbu-aoi-ddqawmk and prescription medicines only as told by [...] provider. Document Revised: 06/09/2023 Document Reviewed: 06/09/2023 Virtual 3-D Display for Smartphones Patient Education ? 2023 Integrated Medical Management. [facility] 11-01-2024 Miscellaneous Notes ----- Message from Dr. Rachael Canela, sent at 11/10/2023 3:37 PM EST ----- CV recheck/thyroid recheck/lipid recheck LM on VM [facility] 11-01-2024 Telephone encounter Note ----- Message from Dr. Rachael Canela, sent at 11/10/2023 3:37 PM EST ----- CV recheck/thyroid recheck/lipid recheck [facility] 11-01-2024 Telephone encounter Note LM on VM [facility] 09-11-2024 Instructions Andres Boyd MD - 09/11/2024 3:03 PM EST Follow-up in 6 months Your dry weight (weight when you do not retain fluids) is 126 lbs Weigh yourself every morning. If weight is more than 5 lbs above your dry weight for 3 days in a row, take 20 mg of lasix once. Limit sodium to 4021-8102 mg /day Limit total fluid to 50-60 Oz/day documented in this encounter [facility] 09-11-2024 History of Present illness Narrative Images from the original note were not included. [facility] [place] SE[facility]IONAL CARDIOLOGY OUTPATIENT VISIT DATE Sep 11, 2024 OUTPATIENT VISIT TYPE ESTABLISHED PRIMARY CARE PHYSICIAN: Rachael Canela, DO [address] [place] [address] CHIEF COMPLAINT: Follow-up Last visit with me: [...] (Patient not taking: Reported on 09/11/2024) timolol/dorzolamide/latanop/PF (FXQCTCF-MXUYKJDSQF-QTUDVJD,PF,) 0.5-2-0.005 % drop^Use 1 Drop in eyes [...] 3 consecutive days. Has not needed this prison. Follow-up in 6 months Your dry weight (weight when you do not retain fluids) is 126 lbs Weigh yourself every morning. If weight is more than 5 lbs above your dry weight for 3 days in a row, take 20 mg of lasix once. Limit sodium to 4873-0084 mg /day Limit total fluid to 50-60 Oz/day Andres Boyd MD documented in this encounter [facility] 09-11-2024 Note HNO ID: [id number] Author: ANDRES BOYD MD Service: ? Author Type: Physician Type: Progress Notes Filed: 09/11/2024 15:14 Note Text: [facility] [place] SE[facility]IONAL CARDIOLOGY OUTPATIENT VISIT DATE Sep 11, 2024 OUTPATIENT VISIT TYPE ESTABLISHED PRIMARY CARE PHYSICIAN: Rachael Canela DO [address] [place] [address] CHIEF COMPLAINT: Follow-up Last visit with me: [...] (Patient not taking: Reported on 09/11/2024) timolol/dorzolamide/latanop/PF (GWYYRHH-YSMJZLUJNL-KUMTJSD,PF,) 0.5-2-0.005 % dropUse 1 Drop in eyes every evening.Disp: Rfl: (Patient not (more content not included)... [facility] 08-30-2024 History of Present illness Narrative Physical [...] issues with walking (about 1 mile). Precautions: Rice, osteopenia Subjective: Pt states she has been [...] instructed in home exercise program. - met Penitentiary Goals: To be met in 10 weeks [...] to home program. documented in this encounter [facility] 08-23-2024 Telephone encounter Note The following approved medication requests have been transmitted electronically. Requested Prescriptions Signed Prescriptions Disp Refills metoprolol succinate ER (TOPROL XL) 50 mg 24 hr tablet 180 tablet 3 Sig: take 1 tablet by mouth twice daily Authorizing Provider: ANDRES BOYD Ordering User: NITZA MAE APRN.CNP [facility] Work Phone: 08-23-2024 Miscellaneous Notes The following [...] 0.96 mg/dL Final documented in this encounter [facility] 08-23-2024 Telephone encounter Note Received request for [...] 1.09 (H) 0.58 - 0.96 mg/dL Final [facility] 08-21-2024 History of Present illness Narrative Physical [...] issues with walking (about 1 mile). Precautions: Rice, osteopenia Subjective: pain in left LE when [...] mins no charge). Manual lumbar distraction with cape verdean ball in supine. Long axis distraction to [...] to be instructed in home exercise program. 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 Date: documented in this encounter [facility] 08-15-2024 History of Present illness Narrative Physical Therapy Evaluation Visit Patient Name: Lesvia Yusuf Today's Date: 08/15/2024 Encounter Diagnoses Name Primary? Sciatica, left side Yes Visit number: 1 Timed Code Treatment Minutes: 56 minutes Total Treatment Time: 56 minutes Time In: 0930 Time Out: 1026 History: Pt states she [...] issues with walking (about 1 mile). Precautions: Rice, osteopenia Subjective: pain in left LE when present Pain: 2-3/ Objective: PT Evaluation (08/15/2024) LUMBAR SPINE AROM: [...] to be instructed in home exercise program. Penitentiary Goals: To be met in 10 weeks [...] sign below. Date: documented in this encounter [facility] 08-08-2024 History of Present illness Narrative IM [...] Testing No results found. Rachael Canela DO., [facility] Office: [phone] documented in this encounter [facility] 06-18-2024 Hospital Discharge instructions Patient Education [...] (electrical nerve stimulation). ?For women, using a hospitalist medical director to prevent urine leaks. This is a [...] right after experiencing incontinence. General instructions Take srmb-mdj-ksgnqcz and prescription medicines only as told by [...] important. Where to find more information National [place] of Diabetes and Digestive and Kidney Diseases: www.niddk.nih.gov [employer]: www.urologyhealth.org Contact a health care [...] provider. Document Revised: 05/21/2021 Document Reviewed: 05/21/2021 Virtual 3-D Display for Smartphones Patient Education 2022 Integrated Medical Management. Follow Up Care 05/14/2024 14:01:27 With:DAT Bustillos APRN, Radha Guo, DONNA, URL Address: When: Unknown Comments:PHILOMENA [facility] 06-18-2024 Note Patient Education Urology Urinary Incontinence [...] nerve stimulation). ? For women, using a hospitalist medical director to prevent urine leaks. This is a [...] can protect the (more content not included)... [facility] 05-28-2024 Miscellaneous Notes Preoperative Education Checklist- General Surgery date: 05/29/24 Surgery time: 1000 Arrival time: 0900 1. Bring a photo ID and your insurance card with you the day of surgery. You will check in at the main lobby of the [facility]- registration desk is straight ahead as soon as you walk in. Tell them you are here for surgery. 2. If you have a Living Will/Durable Power of Guide Travel for Health Care that is not on [...] after you have bathed. 5. NO nail belizean/acrylic on at least one finger. If you are having a hand, wrist or foot surgery then all nail belizean and artificial/acrylic nails must be removed from [...] please call the Preadmission Testing office at [phone], Mon.-Fri. 7 a.m.-3 p.m. Leave a voicemail [...] prior to procedure documented in this encounter [facility] [email or web address] [facility] 05-28-2024 Nurse Note Preoperative Education Checklist- General Surgery date: 05/29/24 Surgery time: 1000 Arrival time: 0900 1. Bring a photo ID and your insurance card with you the day of surgery. You will check in at the main lobby of the [facility]- registration desk is straight ahead as soon as you walk in. Tell them you are here for surgery. 2. If you have a Living Will/Durable Power of Guide Travel for Health Care that is not on [...] after you have bathed. 5. NO nail belizean/acrylic on at least one finger. If you are having a hand, wrist or foot surgery then all nail belizean and artificial/acrylic nails must be removed from [...] please call the Preadmission Testing office at [phone], Mon.-Fri. 7 a.m.-3 p.m. Leave a voicemail [...] Stop taking 0 days prior to procedure [employer] 02-28-2024 Instructions Andres Boyd MD - 02/28/2024 2:04 PM EDT Your dry weight (weight when you do not retain fluids) is 126 lbs Weigh yourself every morning. If weight is more than 5 lbs above your dry weight for 3 days in a row, take 20 mg of lasix once. Limit sodium to 8886-9143 mg /day Limit total fluid to 50-60 Oz/day documented in this encounter [facility] 02-28-2024 History of Present illness Narrative Images from the original note were not included. [facility] [place] [facility] REGIONAL CARDIOLOGY OUTPATIENT VISIT DATE February 28, 2024 OUTPATIENT VISIT TYPE ESTABLISHED PRIMARY CARE PHYSICIAN: Rachael Canela DO [address] [place] [address] CHIEF COMPLAINT: Follow-up Last visit with me: [...] before dental procedure^Disp: 4 tablet^Rfl: 11 timolol/dorzolamide/latanop/PF (NSYQQSF-WKEIJQMOSS-EKGQYKU,PF,) 0.5-2-0.005 % drop^Use 1 Drop in eyes [...] mg of lasix once. Limit sodium to 2685-3974 mg /day Limit total fluid to 50-60 Oz/day Andres Boyd MD documented in this encounter [facility] 12-28-2023 Miscellaneous Notes Agree with recommendation. [...] Alternative to the Farxiga? She ueses: [facility] [place] [address] - [address] [facility] - [phone] / allergies verified ALSO: Pt asking if she should wait to start the Aldactazide, since she didn't pickling solution maker the Farxiga ... She stopped taking her HCTZ as directed.. I told her to go ahead and start the Aldactone/hydrochlorothiazide ...(unless Provider advises otherwise) ... Please update pt with what you prescribe in place of Farxiga, thanks Try [phone] land line (first) Then CELL [phone] vmx/mycharts are okay documented in this encounter [facility] 12-28-2023 Miscellaneous Notes Duplicate Zena is calling Andres Boyd MD today with concern regarding Medication Problem Patient has been identified by name and birthdate. Duration of symptoms: N/A Person calling: self Call patient at: at home [phone] (home) [phone] (cell) Was an appointment scheduled: No Patient medication is not cover by her insurance for the Farxiga ,can Dr. Boyd find another medication that maybe lower cost and on her insurance plan . Thank you so much Closing statement: Renetta Duron PSS documented in this encounter [facility] 12-27-2023 Nurse Note EVENT MONITOR DISPOSABLE PATCH INSTRUCTIONS Patient Name: Lesvia Ramos [facility] Number: [id number] Skin prepped and cleansed with alcohol Patch secured to prepped area Monitor Activated Serial #: [id number] Patient Instructed: Prescribed order timeframe Bathing guidelines Usage of event button and diary documentation Return of monitor at the end of prescribed order Call with problems [phone] or [phone] ext. [phone] Patient expresses a good understanding of instructions Chyna White MA documented in this encounter [facility] 12-27-2023 Instructions Andres Boyd MD - 12/27/2023 10:17 AM EST Blood work today STOP Hydrochlorothiaze Start Aldactazide 25-25 mg -Half tablet daily in the morning Start Farxiga 5 mg (if reasonable copay) Repeat blood work in 3 weeks Monitor today for 2 weeks See you again in 8-9 weeks. Andres Boyd MD documented in this encounter [facility] 12-27-2023 History of Present illness Narrative Images from the original note were not included. [facility] [place] SE[facility] OF REGIONAL CARDIOLOGY OUTPATIENT VISIT DATE December 27, 2023 OUTPATIENT VISIT TYPE ESTABLISHED PRIMARY CARE PHYSICIAN: Rachael Canela DO [address] [place] [address] CHIEF COMPLAINT: Follow-up Last visit with me: [...] times a day.^Disp: 180 tablet^Rfl: 3 timolol/dorzolamide/latanop/PF (ZILZMKC-LHAXYDTBAU-FUSONUF,PF,) 0.5-2-0.005 % drop^Use 1 Drop in eyes [...] Andres Boyd MD documented in this encounter [facility] 11-28-2023 History of Present illness Narrative [...] Do you have a durable power of workers compensation attorney?: Yes Cognitive Screening Do you have trouble remembering or recalling facts or events?: No Do family members or caregivers report that you have difficulty remembering things?: No 6-ClT: Normal 0 REVIEW OF SYSTEMS: Review of Systems Objective [...] [facility] Discharge instructions Patient Education 11/28/2023 [...] Follow these instructions at home: Medicines Take kwjc-lwp-ymhrekr and prescription medicines only as told by [...] provider. Document Revised: 01/25/2023 Document Reviewed: 01/25/2023 Virtual 3-D Display for Smartphones Patient Education 2022 Integrated Medical Management. 11/28/2023 11:47:52 Dietary Guidelines to Help Prevent [...] include: ?8 oz (237 mL) of milk, dmxvlrc-wuoksnrfzcio-ykrwp milk, and calcium-fortifiedfruit juice. Calcium-fortified means that [...] ?Spinach (cooked), rhubarb, beets, sweet potatoes, and Eritrean chard. ?Peanuts. ?Potato chips, armenian fries, and baked potatoes with skin on. ?Nuts and nut products. ?Chocolate. If you regularly take a diuretic medicine, make sure to eat at least 1 or 2 servings of fruits or vegetables that are high in potassium each day. These include: ?Avocado. ?Banana. ?[place], prune, carrot, or tomato juice. ?Baked potato. [...] magnesium, fish oil, or vitamin B6. Take kcks-fyw-gbksdwn and prescription medicines only as told by [...] provider. Document Revised: 01/26/2023 Document Reviewed: 01/26/2023 Virtual 3-D Display for Smartphones Patient Education 2022 Integrated Medical Management. 11/28/2023 11:47:36 Kegel Exercises Kegel Exercises Kegel [...] provider. Document Revised: 02/24/2022 Document Reviewed: 02/24/2022 Virtual 3-D Display for Smartphones Patient Education 2022 Integrated Medical Management. Follow Up Care 12/09/2022 09:38:13 With:DAT Bustillos APRN, Radha Guo, DONNA, URL Address: When:Within 1 Year(s) Comments:carol/ CYRUS [facility] 11-10-2023 History of Present illness Narrative IM PROGRESS NOTE Patient - Lesvia Baylee Ramos Age - 73 y.o. - 1950 ASSESSMENT & PLAN 1. Essential hypertension -goals [...] cardiovascular event (coronary or stroke or non-fatal [place] or stroke) in next 10 years. -I [...] no changes today 5. 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-induced thrombocytopenia) ([facility]) -no active problem at this time. Subjective [...] Testing No results found. Rachael Canela DO., [facility] Office: [phone] documented in this encounter [facility] 11-06-2023 Miscellaneous Notes Has appt 11/10 would like short term sent in documented in this encounter [facility] 11-06-2023 Telephone encounter Note Has appt 11/10 would like short term sent in [employer] 08-28-2023 Miscellaneous Notes Last OV: 05/2023 Future appt noted: 11/2023 documented in this encounter [facility] 06-27-2023 History of Present illness Narrative Images from the original note were not included. 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[facility]) 12/07/2014 PAST SURGICAL HISTORY Procedure [...] Sulfa (Sulfonamide * Rash CURRENT MEDICATIONS: timolol/dorzolamide/latanop/PF (VPIQSOP-UJCLLGZENI-VUJNCOJ,PF,) 0.5-2-0.005 % drop Use 1 Drop in [...] Andres Boyd MD documented in this encounter [facility] 05-30-2023 History of Present illness Narrative [...] Diagnosis Date Aortic stenosis Ascending aortic aneurysm ([facility]) Degenerative disc disease, lumbar Heart murmur Hypertension Hypothyroidism Osteopenia Stroke (cerebrum) ([facility]) 12/07/2014 SOCIAL HISTORY: Tobacco Use: [...] subacromial bursa Informed Consent Consent Obtained: Verbal Rice Protocol A moment to CARE was completed. [...] Nicholas Hines DO documented in this encounter [facility] 05-30-2023 History of Present illness Narrative [...] 2023 9:01 AM documented in this encounter [facility] 05-03-2023 Miscellaneous Notes Risk Rating C: Monitor therapy Summary Nonsteroidal Anti-Inflammatory Agents may diminish the antihypertensive effect of BP meds Beta-Blockers--- take as little of the NSAID as possible. Monitor BP documented in this encounter [facility] 12-27-2022 History of Present illness Narrative Images from the original note were not included. [facility] [place] Jessie Wade Department of Cardiovascular Medicine SECTION [...] File Prior to Visit Medication Sig timolol/dorzolamide/latanop/PF (POBOMDB-QZWGRZMFQO-AFDKPSM,PF,) 0.5-2-0.005 % drop Use 1 Drop in [...] Comment: Indication for hospital admission: discharged from [facility] on 12/06 after having aortic valve replacement and repair of ascending aorta on 12/01/14. She was staying with family during the recovery period and overall was doing well. READMIT: Transferred from [facility] 12/07/14 after presenting with acute onset confusion. Transferred to ICU 2 2014 with severe thrombocytopenia with high risk [...] controlled Dispo: DC today. . Lives in [place], [place]. Coumadin to be managed by [facility] [...] visit. This note was partially generated with [employer] voice recognition software and may contain errors, including spelling, grammar, syntax and misrecognition of what was dictated, that may not be fully corrected. I appreciate the opportunity to participate in this patient's care. Please do not hesitate to call my office if you have any questions. CONTACT INFORMATION: Nitza Mae APRN.JESSIE Adult Nurse Practitioner Jessie Wade Department of Cardiovascular Medicine [facility] Heart, Vascular, Thoracic [place] [facility] and Surgery [facility] Cardiology Consult Team documented in this encounter [facility] 12-19-2022 Miscellaneous Notes Last appt: 06/27/2022 Next appt: 12/27/2022 Requested Prescriptions Pending Prescriptions Disp Refills metoprolol succinate ER (TOPROL XL) 25 mg 24 hr tablet 270 tablet 3 Sig: TAKE 2 TABLETS BY MOUTH IN THE MORNING then TAKE 1 TABLET BY MOUTH IN THE EVENING documented in this encounter [facility] 12-09-2022 Hospital Discharge instructions Patient Education [...] (electrical nerve stimulation). For women, using a hospitalist medical director to prevent urine leaks. This is a [...] right after experiencing incontinence. General instructions Take ndyb-pax-gftjzti and prescription medicines only as told by [...] 11/23/2005 Document Revised: 10/26/2018 Document Reviewed: 01/25/2018 Virtual 3-D Display for Smartphones Patient Education 2020 Integrated Medical Management. Follow Up Care 12/08/2021 14:35:27 With:IRMA RECINOS, India Yang, URL Address: [address] [place], [place] [address]- When: Unknown [facility] 06-02-2022 Miscellaneous Notes The following approved medication requests have been transmitted electronically. Signed Prescriptions Disp Refills hydroCHLOROthiazide (HYDRODIURIL, ESIDRIX) 12.5 mg capsule 30 capsule 5 Sig: Take 1 capsule by mouth daily after breakfast. ALIYAH: No Authorizing Provider: ANDRES BOYD Ordering User: NITZA MAE APRN.JESSIE Last office visit 12/27/21 Future appt scheduled 06/27/22 Last CMP 11/09/21 scanned in under 01/10/22 documented in this encounter [facility] 12-24-2020 History of Past i llness [...] at home, Called 911 transferred back to [facility]. Another brief episode of amnesia in [...] - scheduled acetaminophen. 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 outpatient surgery rn Thrombocytopenia 12/02/2014 12/03/2014 Overview: 12/02/2014 Expected mild [...] Cardiac Surgical prep: N/A SIGNATURE: Shelly Son, CHIEF CREATIVE OFFICER CHECKED BY: rashel DATE of SERVICE: 11/19/2014 TIME of SERVICE: 11:11 AM Thoracic facet syndrome 11/17/201105/31 Aortic stenosis 12/01/2014 Ascending aortic aneurysm Overview: S/p ascending repair documented as of this encounter (statuses as of 06/27/2023) [facility] History of Past illness Narrative* Problem [...] at home, Called 911 transferred back to [facility]. Another brief episode of amnesia in [...] - scheduled acetaminophen. 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 outpatient surgery rn Thrombocytopenia 12/02/2014 12/03/2014 Overview: 12/02/2014 Expected mild [...] Cardiac Surgical prep: N/A SIGNATURE: Shelly Son CHIEF CREATIVE OFFICER CHECKED BY: rashel DATE of SERVICE: 11/19/2014 TIME of SERVICE: 11:11 AM Thoracic facet syndrome 11/17/201105/31 Aortic stenosis 12/01/2014 Ascending aortic aneurysm Overview: S/p ascending repair documented as of this encounter (statuses as of 08/29/2023) [facility] History of Past illness Narrative* Problem [...] at home, Called 911 transferred back to [facility]. Another brief episode of amnesia in [...] - scheduled acetaminophen. 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 outpatient surgery rn Thrombocytopenia 12/02/2014 12/03/2014 Overview: 12/02/2014 Expected mild [...] Cardiac Surgical prep: N/A SIGNATURE: Shelly Son CHIEF CREATIVE OFFICER CHECKED BY: rashel DATE of SERVICE: 11/19/2014 TIME of SERVICE: 11:11 AM Thoracic facet syndrome 11/17/201105/31 Aortic stenosis 12/01/2014 Ascending aortic aneurysm Overview: S/p ascending repair documented as of this encounter (statuses as of 09/04/2023) [facility] History of Past illness Narrative* Problem [...] at home, Called 911 transferred back to [facility]. Another brief episode of amnesia in [...] - scheduled acetaminophen. 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 outpatient surgery rn Thrombocytopenia 12/02/2014 12/03/2014 Overview: 12/02/2014 Expected mild [...] Cardiac Surgical prep: N/A SIGNATURE: Shelly Son, CHIEF CREATIVE OFFICER CHECKED BY: rashel DATE of SERVICE: 11/19/2014 TIME of SERVICE: 11:11 AM Thoracic facet syndrome 11/17/201105/31 Aortic stenosis 12/01/2014 Ascending aortic aneurysm Overview: S/p ascending repair documented as of this encounter (statuses as of 12/27/2023) [facility] History of Past illness Narrative* Problem [...] at home, Called 911 transferred back to [facility]. Another brief episode of amnesia in [...] - scheduled acetaminophen. 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 outpatient surgery rn Thrombocytopenia 12/02/2014 12/03/2014 Overview: 12/02/2014 Expected mild [...] Cardiac Surgical prep: N/A SIGNATURE: Shelly Son CHIEF CREATIVE OFFICER CHECKED BY: rashel DATE of SERVICE: 11/19/2014 TIME of SERVICE: 11:11 AM Thoracic facet syndrome 11/17/201105/31 Aortic stenosis 12/01/2014 Ascending aortic aneurysm Overview: S/p ascending repair documented as of this encounter (statuses as of 12/28/2023) [facility] History of Past illness Narrative* Problem Noted Date Resolved Date Malnutrition of moderate degree 12/24/2014 06/29/2021 Overview: History: 2nd to prolonged illness/hospitalization Assessment: nutrition evaluated and mod degree malnutrition Plan: -encourage oral intake at home, con't supplements at home if needed. Change in mental status 12/09/2014 12/20/19 Overview: History: 12/07/14 pt developed confusion at home, Called 911 transferred back to [facility]. Another brief episode of amnesia in [...] - scheduled acetaminophen. 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 outpatient surgery rn Thrombocytopenia 12/02/2014 12/03/2014 Overview: 12/02/2014 Expected mild [...] Cardiac Surgical prep: N/A SIGNATURE: Shelly Son, CHIEF CREATIVE OFFICER CHECKED BY: rashel DATE of SERVICE: 11/19/2014 TIME of SERVICE: 11:11 AM Aortic stenosis 12/01/2014 Ascending aortic aneurysm 2014 Overview: S/p ascending repair documented as of this encounter (statuses as of 06/02/2022) [facility] History of Past illness Narrative* Problem Noted Date Resolved Date Malnutrition of moderate degree 12/24/2014 06/29/2021 Overview: History: 2nd to prolonged illness/hospitalization Assessment: nutrition evaluated and mod degree malnutrition Plan: -encourage oral intake at home, con't supplements at home if needed. Change in mental status 12/09/2014 12/20/19 Overview: History: 12/07/14 pt developed confusion at home, Called 911 transferred back to [facility]. Another brief episode of amnesia in [...] - scheduled acetaminophen. 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 outpatient surgery rn Thrombocytopenia 12/02/2014 12/03/2014 Overview: 12/02/2014 Expected mild [...] of this encounter (statuses as of 07/05/2022) [facility] History of Past illness Narrative* Problem Noted Date Resolved Date Malnutrition of moderate degree 12/24/2014 06/29/2021 Overview: History: 2nd to prolonged illness/hospitalization Assessment: nutrition evaluated and mod degree malnutrition Plan: -encourage oral intake at home, con't supplements at home if needed. Change in mental status 12/09/2014 12/20/19 Overview: History: 12/07/14 pt developed confusion at home, Called 911 transferred back to [facility]. Another brief episode of amnesia in [...] - scheduled acetaminophen. 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 outpatient surgery rn Thrombocytopenia 12/02/2014 12/03/2014 Overview: 12/02/2014 Expected mild [...] of this encounter (statuses as of 12/19/2022) [facility] History of Past illness Narrative* Problem Noted Date Resolved Date Malnutrition of moderate degree 12/24/2014 06/29/2021 Overview: History: 2nd to prolonged illness/hospitalization Assessment: nutrition evaluated and mod degree malnutrition Plan: -encourage oral intake at home, con't supplements at home if needed. Change in mental status 12/09/2014 12/20/19 15 Overview: History: 12/07/14 pt developed confusion at home, Called 911 transferred back to [facility]. Another brief episode of amnesia in [...] - scheduled acetaminophen. 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 outpatient surgery rn Thrombocytopenia 12/02/2014 12/03/2014 Overview: 12/02/2014 Expected mild [...] Cardiac Surgical prep: N/A SIGNATURE: Shelly Son CHIEF CREATIVE OFFICER CHECKED BY: rashel DATE of SERVICE: 11/19/2014 TIME of SERVICE: 11:11 AM Aortic stenosis 12/01/2014 Ascending aortic aneurysm 2014 Overview: S/p ascending repair documented as of this encounter (statuses as of 01/13/2023) [facility] History of Past illness Narrative* Problem Noted Date Resolved Date Malnutrition of moderate degree 12/24/2014 06/29/2021 Overview: History: 2nd to prolonged illness/hospitalization Assessment: nutrition evaluated and mod degree malnutrition Plan: -encourage oral intake at home, con't supplements at home if needed. Change in mental status 12/09/2014 12/20/19 Overview: History: 12/07/14 pt developed confusion at home, Called 911 transferred back to [facility]. Another brief episode of amnesia in [...] - scheduled acetaminophen. 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 outpatient surgery rn Thrombocytopenia 12/02/2014 12/03/2014 Overview: 12/02/2014 Expected mild [...] Cardiac Surgical prep: N/A SIGNATURE: Shelly Son CHIEF CREATIVE OFFICER CHECKED BY: rashel DATE of SERVICE: 11/19/2014 TIME of SERVICE: 11:11 AM Aortic stenosis 12/01/2014 Ascending aortic aneurysm 2014 Overview: S/p ascending repair documented as of this encounter (statuses as of 05/04/2023) [facility] History of Past illness Narrative* Problem Noted Date Diagnosed Date Resolved Date Malnutrition of moderate degree 12/24/2014 06/29/2021 Overview: History: 2nd to prolonged illness/hospitalization Assessment: nutrition evaluated and mod degree malnutrition Plan: -encourage oral intake at home, con't supplements at home if needed. Change in mental status 12/09/201412/01 Overview: History: 12/07/14 pt developed confusion at home, Called 911 transferred back to [facility]. Another brief episode of amnesia in [...] - scheduled acetaminophen. 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 outpatient surgery rn Thrombocytopenia 12/02/2014 12/03/2014 Overview: 12/02/2014 Expected mild [...] of this encounter (statuses as of 05/30/2023) [facility] App[facility]ments Appointment Date:12/11/2023 09:00:00 AM Scheduled Provider:India SOLIS MD Location:[facility] Appointment Type:URO Office Visit [facility] evaluation + Plan note Future Appointments Appointment Date:05/19/2025 09:45:00 AM Scheduled Provider:India SOLIS MD Location:[facility] Appointment Type:URO Office Visit [facility] evaluation note* Diagnosis S/P AVR (aortic valve replacement) and aortoplasty Heart valve replaced by other means THOMASON (dyspnea on exertion) Other dyspnea and respiratory abnormality Primary hypertension Unspecified essential hypertension [facility] Diagnosis S/P AVR (aortic valve replacement) and aortoplasty Heart valve replaced by other means SVT (supraventricular tachycardia) (HCC) Other specified cardiac dysrhythmias Essential hypertension Unspecified essential hypertension Venous (peripheral) insufficiency Unspecified venous (peripheral) insufficiency [facility] information [facility] Work Phone: Evaluation note* Diagnosis S/P AVR (aortic valve replacement) and aortoplasty Heart valve replaced by other means SVT (supraventricular tachycardia) (HCC) Other specified cardiac dysrhythmias Essential hypertension Unspecified essential hypertension Venous (peripheral) insufficiency Unspecified venous (peripheral) insufficiency [facility] Diagnosis S/P AVR (aortic valve replacement) and aortoplasty- Primary Heart valve replaced by other means SVT (supraventricular tachycardia) (HCC) Other specified cardiac dysrhythmias APC (atrial premature contractions) Supraventricular premature beats Primary hypertension Unspecified essential hypertension Patchy loss of hair Alopecia, unspecified Mixed hyperlipidemia Typical atrial flutter (HCC) Atrial flutter [facility] Diagnosis Primary hypertension- Primary Unspecified essential hypertension [facility]* Diagnosis Impingement syndrome of left shoulder- Primary Other affections of shoulder region, not elsewhere classified [facility]* Diagnosis S/P AVR (aortic valve replacement) 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- Primary Heart valve replaced by other means APC (atrial premature contractions) Supraventricular premature beats SVT (supraventricular tachycardia) (HCC) Other specified cardiac dysrhythmias Primary hypertension Unspecified essential hypertension Venous (peripheral) insufficiency Unspecified venous (peripheral) insufficiency [facility] Diagnosis S/P AVR (aortic valve replacement) 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 Heart valve replaced by other means APC (atrial premature contractions) Supraventricular premature beats SVT (supraventricular tachycardia) Other specified cardiac dysrhythmias [facility] Diagnosis Pain Generalized pain [facility]* Diagnosis S/P AVR (aortic valve replacement) and aortoplasty- Primary Heart valve replaced by other means SVT (supraventricular tachycardia) (HCC) Other specified cardiac dysrhythmias 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, specified as nonrheumatic PVC (premature ventricular contraction) Other premature beats Acute on chronic diastolic heart failure (HCC) Acute on chronic diastolic heart failure [facility] Diagnosis S/P AVR (aortic valve replacement) and aortoplasty- Primary Heart valve replaced by other means SVT (supraventricular tachycardia) (HCC) Other specified cardiac dysrhythmias Chronic diastolic heart failure (HCC) Chronic diastolic heart failure PVC (premature ventricular contraction) Other premature beats 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, specified as nonrheumatic [facility]* Diagnosis Sciatica, left side- Primary [facility] Sciatica, left side- Primary Acute pain of left shoulder [facility] Diagnosis S/P AVR (aortic valve replacement) 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 Heart valve replaced by other means APC (atrial premature contractions) Supraventricular premature beats SVT (supraventricular tachycardia) ([facility]) Other specified cardiac dysrhythmias [facility] Diagnosis Sciatica, left side- Primary [facility] Diagnosis S/P AVR (aortic valve replacement) 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- Primary Heart valve replaced by other means SVT (supraventricular tachycardia) (HCC) Other specified cardiac dysrhythmias 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, specified as nonrheumatic Chronic diastolic heart failure (HCC) Chronic diastolic heart failure Mixed hyperlipidemia [facility]* Diagnosis Hypothyroidism, unspecified [facility] Diagnosis Hyperlipidemia, unspecified [facility]* Diagnosis Encounter for subsequent annual wellness visit (AWV) in Medicare patient- Primary Chronic diastolic heart failure ([facility]) 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) SVT (supraventricular tachycardia) ([facility]) Other specified cardiac dysrhythmias Encounter for screening mammogram for malignant neoplasm of breast documented [facility]* Diagnosis Essential hypertension- Primary Unspecified essential hypertension Hyperlipidemia, unspecified hyperlipidemia type Hypothyroidism, unspecified type Sensorineural hearing loss (SNHL) of right ear with restricted hearing of left ear documented [facility]* Diagnosis Hyperlipidemia, unspecified [facility]* Diagnosis Essential hypertension- Primary Unspecified essential hypertension Hyperlipidemia, unspecified hyperlipidemia type Sciatica of left side 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 Diagnosis Hypothyroidism, unspecified Screen for colon cancer Special screening for malignant neoplasms, colon [facility]* Diagnosis Hyperlipidemia, unspecified Screen for colon cancer Special screening for malignant neoplasms, colon [facility]* Diagnosis Petechiae or ecchymoses- Primary Spontaneous ecchymoses Sciatica of left side Hypothyroidism, unspecified type documented [facility]* Diagnosis Hyperlipidemia, unspecified documented [facility]* Diagnosis 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, specified as nonrheumatic [facility] Diagnosis Nonrheumatic tricuspid valve [...] Unspecified essential hypertension [facility]* Diagnosis Hyperlipidemia, unspecified documented [facility]* Diagnosis Hypothyroidism, unspecified [facility]* Diagnosis Essential hypertension- Primary Unspecified essential hypertension Hypothyroidism, unspecified type Hyperlipidemia, unspecified hyperlipidemia type documented [facility] Narrative No data available for this section [facility]eep InstructionsNot on filedocumented in this encounter [facility] SystemInstructionsNot on filedocumented in this [facility]ructionsNot on filedocumented in this encounter [facility]ocumented in this encounter [facility]Not on filedocumented in this encounter [facility]ructionsNot on filedocumented in this encounter [facility]ructionsNot on filedocumented in this encounter [facility]ructionsNot on filedocumented in this encounter [facility] System[facility]ructionsNot on filedocumented in this encounter [facility] No data available for this section [facility] reason for referral (narrative)* Outpatient Procedure (Routine) - Authorized Specialty Diagnoses / Procedures Referred By Lyn cui Referred To Contact [facility] Diagnoses S/P AVR (aortic valve replacement) and aortoplasty SVT (supraventricular tachycardia) ([facility]) Procedures ECHO ECHO TTHRC R-T 2D W/WOM-MODE COMPL SPEC&COLR D Andres Boyd MD [address] [place] [address] [facility] [address] [address] Referral ID Status Reason Start Date Expiration Date Visits Requested Visits Authorized [id number] Authorized Auto-Generat ed Referral 12/28/2023 06/26/2024 1 1 * Outpatient Procedure (Routine) - Authorized Specialty Diagnoses / Procedures Referred By Lyn cui Referred To Contact [facility] [place] Diagnoses S/P AVR (aortic valve replacement) and aortoplasty APC (atrial premature contractions) Procedures ECG COMPLETE ECG ROUTINE ECG W/LEAST 12 LDS W/I&R Andres Boyd MD [address] [place] [address] [facility] [address] [address] Referral ID Status Reason Start Date Expiration Date Visits Requested Visits Authorized [id number] Authorized Auto-Generat ed Referral 06/27/2023 06/26/2024 1 1 [facility] for referral (narrative)* Diagnostic Procedure Only (Routine) - Closed Specialty Diagnoses / Procedures Referred By Contac t Referred To Contact XR IMAGING Diagnoses Pain Procedures XR SHOULDER GENERAL 3V OR MORE AP/TRUE AP/OTHER LEFT RADEX SHOULDER COMPLETE MINIMUM 2 VIEWS Nicholas Hines, [address] [facility] [place] [address] [place] [id number] Referral ID Status Reason Start Date Expiration Date V isits Requested Visits Authorized [id number] Closed Auto-Generate d Referral 04/07/2023 05/06/2024 1 1 [facility] for referral (narrative)* Outpatient Procedure (Routine) - Pending Review Specialty Diagnoses / Procedures Referred By Contac t Referred To Contact [facility] Diagnoses S/P AVR (aortic valve replacement) and aortoplasty SVT (supraventricular tachycardia) (HCC) Procedures ECG COMPLETE ECG ROUTINE ECG W/LEAST 12 LDS W/I&R Andres Boyd MD [address] [place] [address] [facility] [place] [address] [place] [address] Referral ID Status Reason Start Date Expiration Date Visits Requested Visits Authorized [id number] Pending Review Auto-Generat ed Referral 12/27/2023 12/26/2024 1 1 [facility] for referral (narrative)* Outpatient Procedure (Routine) - Authorized Specialty Diagnoses / Procedures Referred By Contac t Referred To Contact [facility] Diagnoses S/P AVR (aortic valve replacement) and aortoplasty SVT (supraventricular tachycardia) (HCC) Chronic diastolic heart failure (HCC) PVC (premature ventricular contraction) Procedures ECHO ECHO TTHRC R-T 2D W/WOM-MODE COMPL SPEC&COLR D Andres Boyd MD [address] [place] [address] [facility] [place] [address] [place] [address] Referral ID Status Reason Start Date Expiration Date Visits Requested Visits Authorized [id number] Authorized Auto-Generat ed Referral 08/30/2024 02/27/2025 1 1 [facility] for referral (narrative)* Outpatient Procedure (Routine) - New Request Specialty Diagnoses / Procedures Referred By Contac t Referred To Contact [facility] Diagnoses S/P AVR (aortic valve replacement) and aortoplasty SVT (supraventricular tachycardia) (HCC) Nonrheumatic tricuspid valve regurgitation Chronic diastolic heart failure (HCC) Mixed hyperlipidemia Procedures ECG COMPLETE ECG ROUTINE ECG W/LEAST 12 LDS W/I&R Andres Boyd MD [address] [place] [address] [facility] [place] [address] [place] [address] Referral ID Status Reason Start Date Expiration Date Visits Requested Visits Authorized [id number] New Request Auto-Generat ed Referral 4 09/11/2025 1 1 [facility] for visit Narrative* Rehabilitation - Outpatient (Routine) - Authorized Specialty Diagnoses / Procedures Referred By Lyn cui Referred To Contact Physical Therapy Diagnoses Sciatica, left side Procedures ND PHYSICAL THERAPY EVALUATION LOW COMPLEX 20 MINS Rachael Canela MD [address] [place] [address] Phone: tel: fax: Vandana Rodriguez PT Referral ID Status Reason Start Date Expiration Date V isits Requested Visits Authorized [id number] Authorized 08/15/2024 02/11/2025 30 30 [facility] Rehabilitation - Outpatient (Routine) - Closed Specialty Diagnoses / Procedures Referred By Lyn t Referred To Contact Physical Therapy Diagnoses Sciatica, left side Procedures ND PHYSICAL THERAPY EVALUATION LOW COMPLEX 20 MINS Rachael Canela MD [address] [place] [address] Phone: tel: fax: Vandana Rodriguez PT Referral ID Status Reason Start Date Expiration Date Visits Re quested Visits Authorized [id number] Closed 08/15/2024 02/11/2025 30 30 [facility] Healthcare Summary Purpose Family History No Family [...] FoundDocuments on File Type Date Recorded 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 Advance Directive(s) Advance Directive(s) 02/05/2021 11:39 AM Advance Directive(s) 01/08/2021 8:34 AM Advance Directive Response Recorded Date/ Time Advance Directives No September 06, 2018 2:42pm Chief Complaint and Reason for Visit Chief Complaint Screening Reason for Referral Specialty Diagnoses / Procedures Referred By Lyn cui Referred To Contact Rehabilitation Diagnoses Sciatica of left side Rachael Canela, [address] [place] [address] [address] Referral ID Status Reason Start Date Expiration Date Visits Requested Visits Authorized [id number] Pending Review Specialty Services Required 02/06/2025 8 8 Specialty Diagnoses / Procedures Referred By Lyn t Referred To Contact [facility] Diagnoses Impingement syndrome of left shoulder Procedures CONSULT TO PHYSICAL THERAPY PHYSICAL THERAPY EVALUATION HIGH COMPLEX 45 MINS Nicholas Hines, DO [address] [place] [address] [facility] [address] [address] Referral ID Status Reason Start Date Expiration Date Visits Requested Visits Authorized [id number] Authorized PCP Requested Referral Auto-Generate d Referral 05/30/2023 05/29/2024 99 99 Specialty Diagnoses / Procedures Referred By Contac t Referred To Contact Dermatology Diagnoses Patchy loss of hair Procedures CONSULT TO DERMATOLOGY OFFICE/OUTPATIENT [facility] HIGH MDM 60-74 MINUTES Nitza Mae, CHARLETTE.[employer] [address] [place] [address] Referral ID Status Reason Start Date Expiration Date Visits Requested Visits Authorized [id number] Authorized PCP Requested Referral 12/27/2022 12/27/2023 1 [...] CREATED AUTHOR AUTHOR'S ORGANIZ ATION 12/07/2022 [facility] DATE CREATED AUTHOR AUTHOR'S ORGANIZ ATION 06/03/2024 [facility] DATE CREATED AUTHOR AUTHOR'S ORGANIZ ATION 09/01/2024 [facility] EPIC DATE CREATED AUTHOR AUTHOR'S ORGANIZ ATION 12/08/2024 [facility] DATE CREATED AUTHOR AUTHOR'S ORGANIZ ATION 03/26/2025 [facility] DATE CREATED AUTHOR AUTHOR'S ORGANIZ ATION 03/28/2025 [facility] DATE CREATED AUTHOR AUTHOR'S ORGANIZ ATION 06/14/2025 [facility] DATE CREATED AUTHOR AUTHOR'S ORGANIZ ATION 07/06/2025 [facility] Comments (unrecognize d section and content) In the event this informatio n is protected by the Federal Confidentiality of Alcohol and Drug Abuse Patient Records regulations: The Federal rules restrict any use of the information to criminally investigate or prosecute any alcohol or drug abuse patient.[facility] the event this information is protected by the Federal Confidentiality of Alcohol and Drug Abuse Patient Records regulations: The Federal rules restrict any use of the information to criminally investigate or prosecute any alcohol or drug abuse patient.[facility] the event this information is protected by the Federal Confidentiality of Alcohol and Drug Abuse Patient Records regulations: The Federal rules restrict any use of the information to criminally investigate or prosecute any alcohol or drug abuse patient.[facility] the event this information is protected by the Federal Confidentiality of Alcohol and Drug Abuse Patient Records regulations: The Federal rules restrict any use of the information to criminally investigate or prosecute any alcohol or drug abuse patient.[facility] HospitalIn the event this information is protected by the Federal Confidentiality of Alcohol and Drug Abuse Patient Records regulations: The Federal rules restrict any use of the information to criminally investigate or prosecute any alcohol or drug abuse patient.[facility] Hospital[facility] the event this information is protected by the Federal Confidentiality of Alcohol and Drug Abuse Patient Records regulations: The Federal rules restrict any use of the information to criminally investigate or prosecute any alcohol or drug abuse patient.[facility] HospitalIn the event this information is protected by the Federal Confidentiality of Alcohol and Drug Abuse Patient Records regulations: The Federal rules restrict any use of the information to criminally investigate or prosecute any alcohol or drug abuse patient.[facility] Hospital[facility] the event this information is protected by the Federal Confidentiality of Alcohol and Drug Abuse Patient Records regulations: The Federal rules restrict any use of the information to criminally investigate or prosecute any alcohol or drug abuse patient.[facility] the event this information is protected by the Federal Confidentiality of Alcohol and Drug Abuse Patient Records regulations: The Federal rules restrict any use of the information to criminally investigate or prosecute any alcohol or drug abuse patient.[facility] the event this information is protected by the Federal Confidentiality of Alcohol and Drug Abuse Patient Records regulations: The Federal rules restrict any use of the information to criminally investigate or prosecute any alcohol or drug abuse patient.[facility] the event this information is protected by the Federal Confidentiality of Alcohol and Drug Abuse Patient Records regulations: The Federal rules restrict any use of the information to criminally investigate or prosecute any alcohol or drug abuse patient.[facility] HospitalIn the event this information is protected by the Federal Confidentiality of Alcohol and Drug Abuse Patient Records regulations: The Federal rules restrict any use of the information to criminally investigate or prosecute any alcohol or drug abuse patient.[facility] HospitalIn the event this information is protected by the Federal Confidentiality of Alcohol and Drug Abuse Patient Records regulations: The Federal rules restrict any use of the information to criminally investigate or prosecute any alcohol or drug abuse patient.[facility] HospitalIn the event this information is protected by the Federal Confidentiality of Alcohol and Drug Abuse Patient Records regulations: The Federal rules restrict any use of the information to criminally investigate or prosecute any alcohol or drug abuse patient.[facility] HospitalIn the event this information is protected by the Federal Confidentiality of Alcohol and Drug Abuse Patient Records regulations: The Federal rules restrict any use of the information to criminally investigate or prosecute any alcohol or drug abuse patient.[facility] HospitalIn the event this information is protected by the Federal Confidentiality of Alcohol and Drug Abuse Patient Records regulations: The Federal rules restrict any use of the information to criminally investigate or prosecute any alcohol or drug abuse patient.[facility] HospitalIn the event this information is protected by the Federal Confidentiality of Alcohol and Drug Abuse Patient Records regulations: The Federal rules restrict any use of the information to criminally investigate or prosecute any alcohol or drug abuse patient.[facility] HospitalIn the event this information is protected by the Federal Confidentiality of Alcohol and Drug Abuse Patient Records regulations: The Federal rules restrict any use of the information to criminally investigate or prosecute any alcohol or drug abuse patient.[facility] Reason for Visit (unrecogniz ed section [...] COMPLETE MINIMUM 2 VIEWS Nicholas Hines, DO [address] [place] [address] [place] [address] Referral ID Status Reason Start Date Expiration Date V isits Requested Visits Authorized [id number] Closed Auto-Generate d Referral 04/07/2023 05/06/2024 1 1 Reason Comments Follow Up Reason Comments Medication Problem Reason Comments medication questions / cost issue Reason Comments Refill Request Reason Comments Med Refill Reason Comments maw Reason Comments Hyperlipidemia Hypertension Reason Onset Date Comments Med Refill 11/06/2023 Reason Comments medicare annual wellness Reason Comments Rash Left Breast Reason Comments Cardiology Follow Up Reason Comments bp check Care Teams (unrecognized sec tion and content) [...] December 20, 2023 End: December 20, 2023 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 Relationship Specialty Start Date End Date Rachael Canela PCP - General Internal Medicine 08/04/15 Amparo Nguyen [employer]SW [employer] 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 Relationship Specialty Start Date End Date Rachael Canela PCP - General Internal Medicine 08/04/15 Amparo Nguyen [employer] 12/12/14 Team Status: Inactive Member Role Status Dates Rachael Canela DO Primary Care Provider, Other Provider Active Referral Self Attending Provider Active Carlos King DO Referring Provider Active 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 Relationship Specialty Start Date End Date Rachael Canela PCP - General Internal Medicine 08/04/15 Amparo Nguyen [employer] 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 Relationship Specialty Start Date End Date Rachael Canela PCP - General Internal Medicine 08/04/15 Amparo Nguyen [employer] 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 Relationship Specialty Start Date End Date Rachael Canela PCP - General Internal Medicine 08/04/15 Amparo Nguyen, [employer] 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 Relationship Specialty Start Date End Date Rachael Canela PCP - General Internal Medicine 08/04/15 Amparo Nguyen, [employer] 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 Relationship Specialty Start Date End Date Rachael Canela PCP - General Internal Medicine 08/04/15 Amparo Nguyen, [employer] 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 Relationship Specialty Start Date End Date Rachael Canela PCP - General Internal Medicine 08/04/15 Amparo Nguyen, [employer] 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 Relationship Specialty Start Date End Date Rachael Canela PCP - General Internal Medicine 08/04/15 Amparo Nguyen, [employer] 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 Relationship Specialty Start Date End Date Rachael Canela PCP - General Internal Medicine 08/04/15 Amparo Nguyen, [employer] 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 Relationship Specialty Start Date End Date Rachael Canela PCP - General Internal Medicine 08/04/15 Amparo Nguyen, [employer] 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 Relationship Specialty Start Date End Date Rachael Canela DO [address] [place] [address] PCP - General Internal Medicine 07/17/17 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 Relationship Specialty Start Date End Date Rachael Canela DO [address] [place] [address] PCP - General Internal Medicine 07/17/17 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 Relationship Specialty Start Date End Date Rachael Canela DO [address] [place] [address] PCP - General Internal Medicine 07/17/17 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 Relationship Specialty Start Date End Date Rachael Canela DO [address] [place] [address] PCP - General Internal Medicine 07/17/17 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 Relationship Specialty Start Date End Date Rachael Canela DO [address] [place] [address] PCP - General Internal Medicine 07/17/17 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 Relationship Specialty Start Date End Date Rachael Canela DO [address] [place] [address] PCP - General Internal Medicine 07/17/17 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 Relationship Specialty Start Date End Date Rachael Canela DO [address] [place] [address] PCP - General Internal Medicine 07/17/17 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 Relationship Specialty Start Date End Date Rachael Canela DO [address] [place] [address] PCP - General Internal Medicine 07/17/17 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 Relationship Specialty Start Date End Date Rachael Canela PCP - General Internal Medicine 08/04/15 Amparo Nguyen, [facility] [employer] 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 Relationship Specialty Start Date End Date Rachael Canela PCP - General Internal Medicine 08/04/15 Amparo Nguyen, [facility] [employer] 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 Relationship Specialty Start Date End Date Rola Rachael Juarez PCP - General Internal Medicine 08/04/15 Amparo Nguyen, [facility] [employer] 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 Relationship Specialty Start Date End Date Rachael Canela DO [address] [place] [address] PCP - General Internal Medicine 07/17/17 Goals [...] this sectionNot on filedocumented as of this encounter FOR [...] BE BASED ON THE PRIMARY CLINICAL RECORDS. [facility] [email or web address] [facility]. provides no warranty or guarantee of the accuracy or completeness of information in this document.
== END 2025-07-14 19:09 | disposition home or self-care (01) ==
PROVIDERS: Emergency Provider Emergency Medicine; PCP Internal Medicine
DX: M51.9 Unspecified thoracic, thoracolumbar and lumbosacral intervertebral disc disorder (principal); M43.16 Spondylolisthesis, lumbar region
CPT/HCPCS: 72100; 72131; 76376; 96372; 99285; J1885; J2360